=== PATIENT | male | born 1960 ===

== ENCOUNTER → 2020-06-25 13:10 | Outpatient (BNVA) | payer MEDICAID, SELFPAY | PROVIDERS: PCP Internal Medicine; Visit Provider Urology | DX: R97.20 Elevated prostate specific antigen [PSA] (principal); N50.89 Other specified disorders of the male genital organs; Z80.42 Family history of malignant neoplasm of prostate | CPT/HCPCS: 81002 ==

== ENCOUNTER 2020-07-02 11:14 | Outpatient (REF) | payer MEDICAID, SELFPAY ==
--- NOTE | ~2020-07-02 | US_ITS ---
EXAMINATION: US SCROTUM CLINICAL INFORMATION: Scrotal swelling. COMPARISON: None TECHNIQUE: A sonogram of the scrotum was performed assessing sanchez-scale appearance and color Doppler flow. Spectral Doppler analysis of the arterial and venous flow were performed in the testes bilaterally. FINDINGS: RIGHT: Right testicle measures 4.6 x 2.7 x 3.3 cm, volume 21 mL. No focal testicular parenchymal lesions are visualized. Spectral Doppler analysis of the arterial and venous flow is normal in the right testis. There are right epididymal head cysts measuring 1.5 x 1.6 x 2.3 cm and 0.8 x 0.7 x 0.9 cm. There is a right appendix epididymis. There is a small to moderate right hydrocele. There are multiple calcifications in the right scrotum or scrotal pearls. There is no right varicocele. LEFT: Left testicle measures 5.5 x 3.2 x 3.5 cm, volume 32 mL. There are 3 cysts seen in the anterior left testicle measuring 2.5 x 1.9 x 2.8 cm, 2 x 1.4 x 2 cm and 0.9 x 1 x 1.4 cm. There is an adjacent triangular-shaped hypoechoic lesion in the left upper and right testicle with some vascularity and peripheral calcification. This measures 1.2 x 0.9 x 0.7 cm. Spectral Doppler analysis of the arterial and venous flow is normal in the left testis. There are 2 left epididymal head cysts measuring 1 x 1.5 x 1.5 cm and 0.4 x 0.7 x 0.5 cm. There is a left scrotal calcification or scrotal gonzalez. There is a moderate to large complex left hydrocele with internal echoes. There is no left varicocele. US/US scrotum IMPRESSION: 3 simple cysts seen in the anterior left testicle and adjacent 1.2 x 0.9 x 0.7 cm triangular-shaped hypoechoic lesion with vascularity suggestive of a solid lesion and not a cyst. Bilateral epididymal head cysts. Bilateral hydroceles and scrotal calcifications or scrotal pearls, left side greater than right. Left hydrocele is slightly complex with internal echoes. Infectious or inflammatory process should be considered. Short-term ultrasound follow-up of left testicular lesion following treatment is recommended. Neoplastic process cannot be excluded.
== END 2020-07-02 11:15 | disposition home or self-care (01) ==
LOC: HO.HMGCX 11:14
PROVIDERS: PCP Internal Medicine; Visit Provider Urology
DX: N50.89 Other specified disorders of the male genital organs (principal); N49.2 Inflammatory disorders of scrotum
CPT/HCPCS: 76870

== ENCOUNTER 2020-07-09 08:57 | Outpatient (REF) | payer MEDICAID, SELFPAY ==
[2020-07-09 10:11] LABS: PSA,Total (Free>4and<10) 0.18 ng/mL (0.00-4.00)
== END 2020-07-09 08:58 | disposition home or self-care (01) ==
LOC: HO.LAB 08:57
PROVIDERS: Visit Provider Urology
DX: R97.20 Elevated prostate specific antigen [PSA] (principal); Z12.5 Encounter for screening for malignant neoplasm of prostate
CPT/HCPCS: 36415; 84153

== ENCOUNTER → 2020-07-27 14:07 | Outpatient (BNVA) | payer MEDICAID, SELFPAY | PROVIDERS: Visit Provider Urology | DX: N50.89 Other specified disorders of the male genital organs (principal); R97.20 Elevated prostate specific antigen [PSA]; Z80.42 Family history of malignant neoplasm of prostate | CPT/HCPCS: 99212 ==

== ENCOUNTER 2020-11-11 13:45 | Outpatient (REF) | payer MEDICAID, SELFPAY ==
[2020-11-11 15:31] LABS: Hemoglobin 11.5 g/dl (14.0-18.0); Mean Corpuscular HGB Conc 32.9 g/dl (31.0-36.0); Mean Corpuscular Hemoglobin 27.3 pg (27.0-33.0); Mean Corpuscular Volume 82.9 fL (80-98); Mean Platelet Volume 10.6 fL (9.4-12.4); Platelet Count 188 X10*3/uL (160-400); Red Blood Count 4.22 X10*6/uL (4.60-5.80); White Blood Count 7.5 X10*3/uL (4.8-10.8)
[2020-11-11 15:54] LABS: Alanine Aminotransferase 20 U/L (0-40); Albumin Level 4.2 g/dL (3.5-5.0); Alkaline Phosphatase 108 U/L (39-117); Anion Gap 14 (12-20); Aspartate Amino Transferase 19 U/L (5-37); Bilirubin Total 0.5 mg/dL (0.0-1.0); Blood Urea Nitrogen 41 mg/dL (9-16); C Reactive Protein 0.25 mg/dL (< or = 0.50); Calcium 9.4 mg/dL (8.4-10.2); Carbon Dioxide 18 mmol/L (22-29); Chloride 108 mmol/L (96-108); Estimated Glomerular Filt Rate 40; Glucose Random 311 mg/dL (60-115); Potassium 4.6 mmol/L (3.3-5.1); Sodium 135 mmol/L (135-145)
[2020-11-13 15:16] LABS: Transglutaminase Ab IgG 1 U/mL; Transglutaminase IgA 1 U/mL
== END 2020-11-11 13:46 | disposition home or self-care (01) ==
LOC: HO.LAB 13:45
PROVIDERS: PCP Emergency Medicine; Referring Provider Emergency Medicine; Visit Provider Nurse Practitioner Family
DX: K58.0 Irritable bowel syndrome with diarrhea (principal); E11.9 Type 2 diabetes mellitus without complications; I10 Essential (primary) hypertension; E78.5 Hyperlipidemia, unspecified; I25.10 Atherosclerotic heart disease of native coronary artery without angina pectoris; Z12.11 Encounter for screening for malignant neoplasm of colon
CPT/HCPCS: 36415; 80053; 83516; 85027; 86140; 99212

== ENCOUNTER 2020-11-30 11:21 | Outpatient (REF) | payer MEDICAID, SELFPAY ==
[2020-11-30 14:24] LABS: Blood Urea Nitrogen 20 mg/dL (9-16); Estimated Glomerular Filt Rate 55
[2020-11-30 14:26] LABS: Estimated Average Glucose 232 mg/dL; Hemoglobin A1c % 9.7 %
[2020-11-30 14:47] LABS: TSH reflex Free T4 0.32 uIU/mL (0.32-4.0)
== END 2020-11-30 11:22 | disposition home or self-care (01) ==
LOC: HO.LAB 11:21
PROVIDERS: PCP Internal Medicine; Visit Provider Nurse Practitioner Family
DX: K58.0 Irritable bowel syndrome with diarrhea (principal); R19.7 Diarrhea, unspecified; E11.9 Type 2 diabetes mellitus without complications; N17.9 Acute kidney failure, unspecified; N18.9 Chronic kidney disease, unspecified
CPT/HCPCS: 36415; 82565; 83036; 84443; 84520; 99212

== ENCOUNTER → 2020-12-23 12:17 | Outpatient (BNVA) | payer MEDICAID, SELFPAY | PROVIDERS: Visit Provider Internal Medicine Cardiovascular Disease | DX: Z01.810 Encounter for preprocedural cardiovascular examination (principal); I25.10 Atherosclerotic heart disease of native coronary artery without angina pectoris; R07.9 Chest pain, unspecified | CPT/HCPCS: 93005; 99202 ==

== ENCOUNTER → 2020-12-30 07:14 | Outpatient (REF) | payer MEDICAID, SELFPAY ==
--- NOTE | ~2020-12-30 | NM_ITS ---
Lexiscan Myocardial perfusion study Indication: Chest pain, assess for ischemia Technique: The patient was brought in for a Lexiscan perfusion study on 12/30/2020 and was injected 0.4 mg of Lexiscan intravenously. Within a minute of this injection 35 mCi of sestamibi was given intravenously. Images were obtained using the SPECT gamma camera interlaced with the gating device. Images were obtained in supine position. Resting perfusion study was performed on 01/03/2021. Patient was administered 35 mCi of sestamibi intravenously at rest. Images were then obtained in supine position. Total DLP 124mGy-cm. Images were processed with the software and compared side to side in short axis, horizontal long axis and vertical long axis views. Findings: Raw acquisition was reviewed. The stress perfusion study showed diminished tracer uptake along the inferior wall from basal to midportion. With CT attenuation correction there is improvement and hence could be from diaphragmatic attenuation artifact. The gated study shows normal LV systolic function with calculated LVEF of 62%. LV cavity is normal in size. The gated study shows diminished thickening or contractility in the basal to mid inferior wall. Resting study shows diminished tracer uptake in the basal to mid inferior wall. With CT attenuation correction, there is improvement and hence could be from diaphragmatic attenuation artifact. Gating at rest reveals ejection fraction at 64%. The findings are consistent with fixed defect in the basal to mid inferior wall. No reversible defects. NM/NM nick perf SPECT rest & str Impression: 1. Myocardial perfusion imaging study shows no definite ischemia. Fixed basal to mid inferior defect could be from diaphragmatic attenuation artifact, based on improvement with CT attenuation correction. 2. Gated LVEF is 62% during stress and 64% during rest. 3. Transient ischemic dilatation ratio 1.4, but this could also be technical. EKG component of the test reported separately.
--- NOTE | 2020-12-30 07:17 | CA_ITS ---
Acquisition Time: 2020-12-30 07:47:59 Total Exercise Time: 00:02:00 Test Indications: CP, PREOP Medications: SEE CHART Protocol: LEXISCAN Max HR: 090 BPM 56% of Pred: 160 BPM Max BP: 146/072 mmHG Max Work Load: 1.0 METS Pharmacological stress test with Lexiscan injection, while sitting and kicking his legs, without anginal symptoms, without arrythmia, with normotensive response to injection, with nondiagnostic EKG for ischemia. Nuclear images pending. Test reviewed with Dr Miguel. Referred By: Bassam Ogden Overread By: ADARSH LUEVANO
== END ==
LOC: HO.CARD 07:14
PROVIDERS: Visit Provider Internal Medicine Cardiovascular Disease
DX: I25.10 Atherosclerotic heart disease of native coronary artery without angina pectoris (principal)
CPT/HCPCS: 78452; 93017; A9500; J0280; J2785

== ENCOUNTER 2021-01-05 09:50 | Outpatient (REF) | payer MEDICAID, SELFPAY ==
[2021-01-05 11:19] LABS: Hematocrit 36.1 % (42-52); Hemoglobin 11.8 g/dl (14.0-18.0); Mean Corpuscular HGB Conc 32.7 g/dl (31.0-36.0); Mean Corpuscular Hemoglobin 27.7 pg (27.0-33.0); Mean Corpuscular Volume 84.7 fL (80-98); Mean Platelet Volume 10.2 fL (9.4-12.4); Platelet Count 215 X10*3/uL (160-400); Red Blood Count 4.26 X10*6/uL (4.60-5.80); Red Cell Distribution Width 14.8 % (11.0-16.0); White Blood Count 6.6 X10*3/uL (4.8-10.8)
[2021-01-05 11:23] LABS: Prothrombin Time 11.5 SEC (9.9-13.0)
[2021-01-05 12:29] LABS: Anion Gap 15 (12-20); Blood Urea Nitrogen 28 mg/dL (9-16); Calcium 9.3 mg/dL (8.4-10.2); Carbon Dioxide 17 mmol/L (22-29); Chloride 113 mmol/L (96-108); Estimated Glomerular Filt Rate 58; Glucose Random 73 mg/dL (60-115); Potassium 5.7 mmol/L (3.3-5.1); Sodium 139 mmol/L (135-145)
== END 2021-01-05 09:51 | disposition home or self-care (01) ==
LOC: HO.LAB 09:50
PROVIDERS: PCP Internal Medicine; Visit Provider Internal Medicine Cardiovascular Disease
DX: R94.39 Abnormal result of other cardiovascular function study (principal); K58.0 Irritable bowel syndrome with diarrhea; K21.9 Gastro-esophageal reflux disease without esophagitis; R14.0 Abdominal distension (gaseous); Z87.891 Personal history of nicotine dependence
CPT/HCPCS: 36415; 80048; 85027; 85610; 99212

== ENCOUNTER 2021-01-17 11:13 | Outpatient (REF) | payer MEDICAID, SELFPAY ==
--- NOTE | ~2021-01-17 | CT_ITS ---
EXAMINATION: CT ABDOMEN AND PELVIS WITH CONTRAST CLINICAL INFORMATION: R19.7 - Diarrhea, unspecified COMPARISON: None TECHNIQUE: Multidetector volumetric images were obtained from the superior aspect of the liver through the pubic symphysis following administration 85 mL of Omnipaque 350 intravenous contrast. Sagittal and coronal reformatted images were obtained on the technologist's workstation. Oral contrast: Yes This CT examination was performed using dose optimization techniques as appropriate, variously including the following: *Automated exposure control *Adjustment of mA and/or kV according to patient size (this includes techniques or standardized protocols for targeted exams where dose is matched to indication/reason for exam; i.e. extremities or head) *Use of iterative reconstruction technique DLP: 570 mGy-cm FINDINGS: LUNG BASES: No airspace consolidation or effusion. Incidental 0.6 cm calcified granuloma central right base. No additional follow-up required. LIVER, GALLBLADDER, AND BILIARY TREE: The liver is normal in size and smooth in contour and uniform in attenuation. Parenchymal density is within normal. There is no hepatic parenchymal lesion or intrahepatic ductal dilatation. The gallbladder is mildly contracted. No visible stone or wall thickening. Common duct unremarkable. PANCREAS: Normal. SPLEEN: Normal. ADRENAL GLANDS: Normal. KIDNEYS AND URETERS: The kidneys are normal in size and enhance symmetrically. There is no hydronephrosis, hydroureter, or calculi. Calcification upper pole left kidney under 4 mm is likely related to the vasculature. There is an exophytic cyst lower pole left kidney 2.5 cm and 6HU attenuation. No additional follow-up recommended. The right kidney has a 2 cm circumscribed partially exophytic low-attenuation lesion lateral lower pole with density measurements ranging from 21-26 HU. This is likely a cyst and may be confirmed with nonemergent renal ultrasound. BLADDER: Unremarkable. GASTROINTESTINAL TRACT: There is no bowel obstruction or focal inflammatory changes in the bowel or mesentery. The appendix is normal. There is no pneumatosis or free air. Moderate stool is present left and sigmoid colon and rectum. There is no ascites or fluid collection. ABDOMINAL WALL: No significant hernia is appreciated. LYMPH NODES: No lymphadenopathy. VASCULAR: Unremarkable. PELVIC VISCERA: Unremarkable. OSSEOUS STRUCTURES: Unremarkable. CT/CT abdomen pelvis w con IMPRESSION: 1. No bowel obstruction or focal inflammatory changes. Normal appendix. Moderate stool left colon and rectum. No ascites or fluid collection. 2. Probable cyst lateral lower pole right kidney 2 cm, density 21-26HU. This may be confirmed with nonemergent outpatient renal ultrasound.
[2021-01-17] MEDS: iohexoL 350 MG/ML 100 ML INFUS..BTL IV (14:52)
== END 2021-01-17 11:14 | disposition home or self-care (01) ==
LOC: HO.CT 11:13
PROVIDERS: PCP Internal Medicine; Visit Provider Nurse Practitioner Family
DX: R19.7 Diarrhea, unspecified (principal)
CPT/HCPCS: 74177; Q9967

== ENCOUNTER 2021-01-24 06:58 | Outpatient (REF) | payer MEDICAID, SELFPAY ==
[2021-01-24 08:30] LABS: Prostate Specific Antigen 0.18 ng/mL (<0.05-4.0)
== END 2021-01-24 06:59 | disposition home or self-care (01) ==
LOC: HO.LAB 06:58
PROVIDERS: PCP Internal Medicine; Visit Provider Urology
DX: Z12.5 Encounter for screening for malignant neoplasm of prostate (principal); N13.8 Other obstructive and reflux uropathy; N40.1 Benign prostatic hyperplasia with lower urinary tract symptoms; R97.20 Elevated prostate specific antigen [PSA]
CPT/HCPCS: 36415; 84153

== ENCOUNTER → 2021-01-28 11:26 | Outpatient (BNVA) | payer MEDICAID, SELFPAY | PROVIDERS: PCP Internal Medicine; Visit Provider Urology ==

== ENCOUNTER → 2021-02-16 07:29 | Outpatient (BNVA) | payer MEDICAID, SELFPAY | PROVIDERS: PCP Internal Medicine; Visit Provider Nurse Practitioner Family | DX: Z01.810 Encounter for preprocedural cardiovascular examination (principal); I25.10 Atherosclerotic heart disease of native coronary artery without angina pectoris; R94.39 Abnormal result of other cardiovascular function study; K58.2 Mixed irritable bowel syndrome; K21.9 Gastro-esophageal reflux disease without esophagitis; R19.7 Diarrhea, unspecified | CPT/HCPCS: 99212 ==

== ENCOUNTER → 2021-03-10 07:27 | Outpatient (REF) | payer MEDICAID, SELFPAY ==
--- NOTE | ~2021-03-10 | NM_ITS ---
EXAMINATION: BILIARY TRACT IMAGING STUDY WITH CCK CLINICAL INFORMATION: Diarrhea.. COMPARISON: No previous biliary scan is available for comparison. The diagnostic CT scan of the abdomen and pelvis, dated 01/17/2021, is available for comparison.. TECHNIQUE: Serial gamma scintillation camera images were obtained over the abdomen for a total observation period of 93 minutes following the intravenous administration of 5 mCi Tc-99m Mebrofenin. FINDINGS: There is good concentration of activity in the liver by 5 minutes post injection. Biliary activity is visualized by 15 minutes. The gallbladder is well visualized by 25 minutes. Small bowel is well visualized by 75 minutes. At 90 minutes post radiopharmaceutical injection, a 30-minute infusion of 2.0 micrograms Sincalide was then begun and an additional 40 minutes of images were obtained. There is good emptying of the gallbladder. By the end of the study there is good clearance of activity from the liver and visualization of diffuse small bowel activity. The calculated gallbladder ejection fraction is 88% (normal gallbladder ejection fraction is greater than 35%). NM/NM hepatobiliary w pharm IMPRESSION: Visualization of the gallbladder is evidence of a patent cystic duct and strong evidence against the diagnosis of acute cholecystitis. The common bile duct is patent. Gallbladder emptying and ejection fraction are normal. Liver function appears normal.
== END ==
LOC: HO.NUCMED 07:27
PROVIDERS: Visit Provider Nurse Practitioner Family
DX: R19.7 Diarrhea, unspecified (principal)
CPT/HCPCS: 78227; A9537; J2805

== ENCOUNTER → 2021-04-11 08:51 | Outpatient (BNVA) | payer MEDICAID, SELFPAY | PROVIDERS: PCP Internal Medicine; Referring Provider Internal Medicine; Visit Provider Nurse Practitioner Family | DX: Z12.11 Encounter for screening for malignant neoplasm of colon (principal); K21.9 Gastro-esophageal reflux disease without esophagitis; K58.2 Mixed irritable bowel syndrome; R19.7 Diarrhea, unspecified | CPT/HCPCS: 99212 ==

== ENCOUNTER 2021-05-02 07:44 | Outpatient (REF) | payer MEDICAID, SELFPAY ==
--- NOTE | 2021-05-02 | PFT_ITS ---
FLOWS: FEV1 of 110% of predicted at 3.13 L. FVC 97% of predicted at 3.62 L. FEV1 to FVC ratio of 0.87. No bronchodilator response. LUNG VOLUMES: Total lung capacity 85% of predicted at 4.94 L. Residual volume 84% of predicted at 1.64 L. Slow vital capacity 85% of predicted at 3.30 L. Expiratory reserve volume 15% of predicted at 0.15 L. Diffusion capacity is mildly decreased, diffusion capacity adjust to normal after correction for alveolar ventilation. IMPRESSION: No obstructive or restrictive ventilatory defect. No bronchodilator response. Decreased expiratory reserve volume suggests extrathoracic restriction likely secondary to abdominal obesity. Parminder Olivas MD AP/MODL / [id number]
== END 2021-05-02 07:45 | disposition home or self-care (01) ==
LOC: HO.RESP 07:44
PROVIDERS: PCP Internal Medicine; Visit Provider Internal Medicine
DX: R06.02 Shortness of breath (principal)
CPT/HCPCS: 94060; 94727; 94729

== ENCOUNTER → 2021-06-22 12:30 | Outpatient (BNVA) | payer MEDICAID, SELFPAY | PROVIDERS: PCP Internal Medicine; Referring Provider Internal Medicine; Visit Provider Internal Medicine Cardiovascular Disease | DX: I73.9 Peripheral vascular disease, unspecified (principal); I25.10 Atherosclerotic heart disease of native coronary artery without angina pectoris | CPT/HCPCS: 99212 ==

== ENCOUNTER → 2021-07-12 09:02 | Outpatient (BNVA) | payer MEDICAID, SELFPAY | PROVIDERS: PCP Internal Medicine; Visit Provider Surgery Vascular Surgery | DX: I73.9 Peripheral vascular disease, unspecified (principal) | CPT/HCPCS: 99212 ==

== ENCOUNTER 2021-07-12 10:47 | Outpatient (REF) | payer MEDICAID, SELFPAY ==
[2021-07-12 12:18] LABS: Prostate Specific Antigen 0.21 ng/mL (<0.05-4.0)
== END 2021-07-12 10:48 | disposition home or self-care (01) ==
LOC: HO.LAB 10:47
PROVIDERS: Visit Provider Urology
DX: R97.20 Elevated prostate specific antigen [PSA] (principal); Z12.5 Encounter for screening for malignant neoplasm of prostate; I73.9 Peripheral vascular disease, unspecified
CPT/HCPCS: 36415; 84153; 99204

== ENCOUNTER → 2021-07-29 14:29 | Outpatient (BNVA) | payer MEDICAID, SELFPAY | PROVIDERS: PCP Internal Medicine; Visit Provider Urology ==

== ENCOUNTER 2021-08-11 07:47 | Outpatient (REF) | payer MEDICAID, SELFPAY ==
--- NOTE | ~2021-08-11 | CT_ITS ---
STUDY PERFORMED: CTA ABDOMEN, PELVIS AND LOWER EXTREMITY RUNOFF WITH CONTRAST HISTORY: Peripheral vascular disease, unspecified DESCRIPTION: Routine abdominal aorta and lower extremity runoff CTA protocol with contrast was performed. 100 mL of Omnipaque 350 was administered. 3D POSTPROCESSING: Multiple 3-D angiographic images were processed from the initial data set by the [facility] under concurrent physician supervision. This CT examination was performed using dose optimization techniques as appropriate, variously including the following: *Automated exposure control *Adjustment of mA and/or kV according to patient size (this includes techniques or standardized protocols for targeted exams where dose is matched to indication/reason for exam; i.e. extremities or head) *Use of iterative reconstruction technique DLP: 774 mGycm. COMPARISON: CT abdomen pelvis 01/17/2021 FINDINGS: VASCULAR: Please note that vascular opacification is less than optimal secondary to poor timing. ABDOMINAL AORTA: The suprarenal aorta appears unremarkable. There is marked atherosclerotic change present in the infrarenal aorta but no significant focal stenosis. No aortic aneurysm. No aortic dissection. RIGHT LOWER EXTREMITY: - Common Iliac Artery: Moderate atherosclerotic changes with only mild stenosis.. - Internal Iliac Artery: Diseased but patent.. - External Iliac Artery: Calcific atherosclerotic changes with mild area of stenosis.. - Common Femoral Artery: Moderate atherosclerotic disease with eccentric calcified and noncalcified plaque producing about 50% stenosis.. - Profunda Femoral Artery: Atherosclerotic changes but patent.. - Superficial Femoral Artery: Occluded shortly after its origin with reconstitution just below the level of a diseased adductor canal.. - Popliteal Artery: Patent with calcific plaque but no significant stenosis.. - Tibioperoneal Trunk: Patent with Monckeberg type calcifications without significant stenosis - Posterior Tibial Artery: Patent with Monckeberg type calcification throughout its course. - Peroneal Artery: Patent without calcification. - Anterior Tibial Artery: Patent with Monckeberg type calcifications throughout its course. LEFT LOWER EXTREMITY: - Common Iliac Artery: Left common iliac stent is present. Is difficult to director of student life patency based upon the poor quality contrast injection. I suspect that the stents are patent. Ultrasound may be useful for further evaluation. - Internal Iliac Artery: Diseased but patent.. - External Iliac Artery: Patent. - Common Femoral Artery: Calcified plaque but patent.. - Profunda Femoral Artery: Mockingbird type calcifications but patent. - Superficial Femoral Artery: A stent is present in the SFA extending from the adductor canal to just below the inguinal ligament. I suspect that the stent is patent but because of the poor quality of the contrast bolus and cannot be certain of this.. - Popliteal Artery: Patent without significant stenosis.. - Tibioperoneal Trunk: Patent - Posterior Tibial Artery: Patent with Monckeberg type calcifications throughout. - Peroneal Artery: Patent. - Anterior Tibial Artery: Patent with Monckeberg type calcifications. CELIOMESENTERIC ARTERIES: Not optimally seen secondary to poor contrast bolus. Mild ostial disease but no stenosis. All 3 vessels are patent.. RENAL ARTERIES: Single renal artery on the right and 2 renal arteries on the left. There are all patent. NONVASCULAR: Lung Bases: The visualized lung bases are unremarkable. Liver, Gallbladder and Biliary Tree: The liver is normal in size, shape, and attenuation. No focal hepatic lesion or biliary ductal dilatation is present. The gallbladder is unremarkable with no evidence of radiopaque gallstones, gallbladder wall thickening, or obvious pericholecystic inflammatory changes. Pancreas: Unremarkable. Spleen: Unremarkable. Adrenal Glands: Unremarkable. Kidneys and Ureters: The kidneys are normal in size, shape, and attenuation. Again seen is a 2.2 cm right lower pole renal mass measuring around 30 Hounsfield units. Appearances are unchanged. This most likely represents a hyperattenuating cyst. Ultrasound could be performed for confirmation. No hydronephrosis, hydroureter, or calculi seen. No perinephric stranding. Bladder: Unremarkable. Gastrointestinal Tract: The small and large bowel are unremarkable. The appendix is unremarkable. Abdominal Wall: No significant hernia is appreciated. Lymph Nodes: No retroperitoneal lymphadenopathy. Pelvic Viscera: Prostate and seminal vesicles appear normal. Osseous Structures: Unremarkable. CT/CT angio abd aorta runoff IMPRESSION: 1. The study is suboptimal secondary to poor contrast bolus/timing. 2. No significant aortic inflow disease. 3. On the right, there is moderate disease in the common femoral artery with an occluded SFA with distal reconstitution and patent popliteal. Three-vessel runoff with Monckeberg calcification involving all vessels aside from the peroneal. 4. On the left, left common iliac stent is probably patent although accurate assessment is not possible. The SFA stent may be patent, but again, accurate assessment is not possible. The popliteal is patent with three-vessel runoff described above with Monckeberg calcifications involving all runoff vessels aside from the peroneal. 5. Incidental nonvascular findings discussed above.
[2021-08-11 08:34] LABS: Blood Urea Nitrogen 15 mg/dL (9-16); Estimated Glomerular Filt Rate 58
[2021-08-11] MEDS: iohexoL 350 MG/ML 100 ML INFUS..BTL IV (09:33)
== END 2021-08-11 07:48 | disposition home or self-care (01) ==
LOC: HO.CT 07:47
PROVIDERS: PCP Internal Medicine; Visit Provider Surgery Vascular Surgery
DX: I70.209 Unspecified atherosclerosis of native arteries of extremities, unspecified extremity (principal)
CPT/HCPCS: 36415; 75635; 82565; 84520; Q9967

== ENCOUNTER 2021-08-16 10:51 | Day surgery (SDC) | payer MEDICAID, SELFPAY ==
[2021-08-12 09:24] VITALS: BMI 38.2
--- NOTE | 2021-08-12 13:53 | P.CONAN_ITS ---
Documented by User: Esperanza Perdomo NP 08/12/21 14:09 HPI - Anesthesia Eval Consult details Narrative: 61yo M for Upper Endoscopy and Colonoscopy Plavix for PAD/RLE stent - OK to hold per PCP CAD medically managed Cardiac optimized, intermed risk Opioid daily PMFSH Active Problems Active Problems: All Active Problems (Updated 08/12/21 @ 09:14 by Vale Lynn RN) Chest pain (Acute) CAD (coronary artery disease) (Acute) Preop cardiovascular exam (Acute) Abnormal stress test (Acute) PVD (peripheral vascular disease) (Acute) Family history of prostate cancer (Acute) Scrotal swelling (Acute) Elevated PSA (Acute) Past Medical History Medical History CAD (coronary artery disease) Diabetes Elevated PSA Family history of prostate cancer PVD (peripheral vascular disease) Scrotal swelling Surgical History Surgical History (Updated 08/12/21 @ 09:13 by Vale Lynn RN) History of cardiac cath History of surgery History of vascular surgery Hx of arthroscopic knee surgery Social History Social History Alcohol intake: never Patient Tobacco Use Status: Former Tobacco user Quit Date: 2014 Years Smoked: 35+ Are you DNR?: No Advance Directives: No Advance Directives Information Provided: Yes Recently lost weight without trying: No Nutrition Risks: No Nutritional Risk Meds Allergies Allergy/AdvReac Type Severity Reaction Status Date / Time No Known Allergies Allergy Verified 07/29/21 15:21 Home Medications Medication Instructions Recorded Confirmed Last Taken Type acetaminophen 500 mg capsule 500 mg PO Q6H PRN 11/11/20 08/12/21 Unknown History albuterol sulfate 2.5 mg/0.5 mL 5 mg INHALATION Q4H 11/11/20 08/12/21 Unknown History solution for nebulization alcohol swabs (Alcohol Prep Pads) pad TOPICAL 11/11/20 06/22/21 Unknown History amlodipine 10 mg tablet (Norvasc) 10 mg PO DAILY 11/11/20 08/12/21 Unknown History aspirin 81 mg tablet,delayed 81 mg PO DAILY 11/11/20 08/12/21 Unknown History release (Adult Low Dose Aspirin) atorvastatin 80 mg tablet 80 mg PO DAILY 11/11/20 08/12/21 Unknown History blood sugar diagnostic (FreeStyle #10 ea 11/11/20 06/22/21 Unknown History Lite Strips) carvedilol 3.125 mg tablet (Coreg) 3.125 mg PO BID 11/11/20 08/12/21 Unknown History cilostazol 100 mg tablet 100 mg PO BID 11/11/20 08/12/21 Unknown History clopidogrel 75 mg tablet (Plavix) 75 mg PO DAILY 11/11/20 08/12/21 08/11/21 History diphenoxylate-atropine 2.5 1 tab PO QID PRN 11/11/20 08/12/21 Unknown History mg-0.025 mg tablet (Lomotil) fluticasone propionate 50 1 spray INTRANASAL DAILY 11/11/20 08/12/21 Unknown History mcg/actuation nasal spray,suspension (Flonase Allergy Relief) gabapentin 300 mg/6 mL (6 mL) oral 100 mg PO TID 11/11/20 06/22/21 Unknown History solution glucose 4 gram chewable tablet 4 g PO Q15M PRN 11/11/20 08/12/21 Unknown History (Dex4 Glucose) insulin NPH isoph U-100 human 100 20 unit SUBCUT QAM 11/11/20 08/12/21 Unknown History unit/mL (3 mL) subcutaneous pen (Novolin N Flexpen) insulin glargine 100 unit/mL (3 10 unit SUBCUT QPM 11/11/20 08/12/21 Unknown History mL) subcutaneous pen (Lantus Solostar U-100 Insulin) isosorbide mononitrate 60 mg 60 mg PO QAM 11/11/20 08/12/21 Unknown History tablet,extended release 24 hr risperidone 1 mg/mL oral solution 2 mg PO BEDTIME 11/11/20 06/22/21 Unknown History tramadol 50 mg tablet 50 mg PO TID PRN 11/11/20 08/12/21 Unknown History carvedilol 6.25 mg tablet 6.25 mg PO 07/12/21 Unknown History cholecalciferol (vitamin D3) 25 25 mcg PO QAM 07/12/21 08/12/21 Unknown History mcg (1,000 unit) tablet gabapentin 300 mg capsule 100 mg PO TID 07/12/21 08/12/21 Unknown History insulin aspart U-100 100 unit/mL SUBCUT 07/12/21 Unknown History (3 mL) subcutaneous pen (Novolog Flexpen U-100 Insulin aspart) lancets 28 gauge (TRUEplus Lancets) #100 ea 07/12/21 Unknown History lisinopril 40 mg tablet 40 mg PO QAM 07/12/21 08/12/21 Unknown History pen needle, diabetic 32 gauge x #50 ea 07/12/21 Unknown History (Pentips) risperidone 3 mg tablet 3 mg PO BEDTIME 07/12/21 08/12/21 Unknown History Exam Exam Date and Time: August 12, 2021 1353 Height,Weight and Vital Signs: Height 5 ft 4 in Weight 101.151 kg Pertinent Lab Results Pertinent Lab Results: Repeat Lytes DOS d/t increased K Laboratory Tests 01/05/21 08/11/21 10:05 08:09 WBC 6.6 Hgb 11.8 L Hct 36.1 L Plt Count 215 BUN 15 Creatinine 1.27 Narrative Narrative: Per 05/2021 cardiac office visit: Cardiac catheterization showed 90% stenosis in 2nd diagonal branch, 60% OM2 stenosis and moderate diffuse disease in the right coronary artery with mild InStent restenoses in the mid RCA.? There is also a 60% stenosis noticed in the right posterior descending artery.? He was medically managed at that stage.? His echocardiography at that time showed normal biventricular function.? Subsequent to that in 2016 he had Lexiscan which showed no fixed or reversible perfusion defect.? He has been experiencing diarrhea for months.? He has developed dehydration due to that.? He has no shortness of breath.? He does get chest discomfort and recently had chest tightness for which he took nitroglycerin.? He said symptoms were similar to his pre PCI chest discomfort. He underwent Lexiscan which showed fixed basal to mid inferior defect and t.i.d.. He was taken for diagnostic angiogram where we noticed occluded mid right coronary artery with [id number] collaterals and 50% 2nd diagonal stenosis.? We decided to medically manage him.? He was advised to proceed with endoscopy with intermediate risk. Assessment and Plan Assessment Anesthesia Assessment: Chart Reviewed Documented by User: Ghislaine Galloway MD 08/16/21 11:41 [facility] Past Medical History Medical History CAD (coronary artery disease) Diabetes Elevated PSA Family history of prostate cancer PVD (peripheral vascular disease) Scrotal swelling Functional capacity: independent ambulation Family History Family history of problems with anesthesia: No Surgical History Surgical History (Updated 08/12/21 @ 09:13 by Vale Lynn RN) History of cardiac cath History of surgery History of vascular surgery Hx of arthroscopic knee surgery History of Problems with Anesthesia: No Social History Social History Alcohol intake: never Patient Tobacco Use Status: Former Tobacco user Quit Date: 2014 Years Smoked: 35+ Are you DNR?: No Advance Directives: No Advance Directives Information Provided: Yes Recently lost weight without trying: No Nutrition Risks: No Nutritional Risk Meds Allergies Allergy/AdvReac Type Severity Reaction Status Date / Time No Known Allergies Allergy Verified 07/29/21 15:21 Home Medications Medication Instructions Recorded Confirmed Last Taken Type acetaminophen 500 mg capsule 500 mg PO Q6H PRN 11/11/20 08/12/21 Unknown History albuterol sulfate 2.5 mg/0.5 mL 5 mg INHALATION Q4H 11/11/20 08/12/21 Unknown History solution for nebulization alcohol swabs (Alcohol Prep Pads) pad TOPICAL 11/11/20 06/22/21 Unknown History amlodipine 10 mg tablet (Norvasc) 10 mg PO DAILY 11/11/20 08/12/21 Unknown History aspirin 81 mg tablet,delayed 81 mg PO DAILY 11/11/20 08/12/21 Unknown History release (Adult Low Dose Aspirin) atorvastatin 80 mg tablet 80 mg PO DAILY 11/11/20 08/12/21 Unknown History blood sugar diagnostic (FreeStyle #10 ea 11/11/20 06/22/21 Unknown History Lite Strips) carvedilol 3.125 mg tablet (Coreg) 3.125 mg PO BID 11/11/20 08/12/21 Unknown History cilostazol 100 mg tablet 100 mg PO BID 11/11/20 08/12/21 Unknown History clopidogrel 75 mg tablet (Plavix) 75 mg PO DAILY 11/11/20 08/12/21 08/11/21 History diphenoxylate-atropine 2.5 1 tab PO QID PRN 11/11/20 08/12/21 Unknown History mg-0.025 mg tablet (Lomotil) fluticasone propionate 50 1 spray INTRANASAL DAILY 11/11/20 08/12/21 Unknown History mcg/actuation nasal spray,suspension (Flonase Allergy Relief) gabapentin 300 mg/6 mL (6 mL) oral 100 mg PO TID 11/11/20 06/22/21 Unknown History solution glucose 4 gram chewable tablet 4 g PO Q15M PRN 11/11/20 08/12/21 Unknown History (Dex4 Glucose) insulin NPH isoph U-100 human 100 20 unit SUBCUT QAM 11/11/20 08/12/21 Unknown History unit/mL (3 mL) subcutaneous pen (Novolin N Flexpen) insulin glargine 100 unit/mL (3 10 unit SUBCUT QPM 11/11/20 08/12/21 Unknown History mL) subcutaneous pen (Lantus Solostar U-100 Insulin) isosorbide mononitrate 60 mg 60 mg PO QAM 11/11/20 08/12/21 Unknown History tablet,extended release 24 hr risperidone 1 mg/mL oral solution 2 mg PO BEDTIME 11/11/20 06/22/21 Unknown History tramadol 50 mg tablet 50 mg PO TID PRN 11/11/20 08/12/21 Unknown History carvedilol 6.25 mg tablet 6.25 mg PO 07/12/21 Unknown History cholecalciferol (vitamin D3) 25 25 mcg PO QAM 07/12/21 08/12/21 Unknown History mcg (1,000 unit) tablet gabapentin 300 mg capsule 100 mg PO TID 07/12/21 08/12/21 Unknown History insulin aspart U-100 100 unit/mL SUBCUT 07/12/21 Unknown History (3 mL) subcutaneous pen (Novolog Flexpen U-100 Insulin aspart) lancets 28 gauge (TRUEplus Lancets) #100 ea 07/12/21 Unknown History lisinopril 40 mg tablet 40 mg PO QAM 07/12/21 08/12/21 Unknown History pen needle, diabetic 32 gauge x #50 ea 07/12/21 Unknown History (Pentips) risperidone 3 mg tablet 3 mg PO BEDTIME 07/12/21 08/12/21 Unknown History Exam Airway Mallampati Class: III TM Dist: >3cm Neck ROM: Full Heart: RRR Lungs: CTA Assessment and Plan Final Anesthetic Review Family History of Problems with Anesthesia: No History of Problems with Anesthesia: No ASA Class: III Final Preanesthetic Review: No Changes in Pt Med Stat, Meds/Allgs Chart Reviewed, Consent Obtained/Reviewed and Anes Risks/Benef Reviewed Patient Risk: Intermediate Procedure Risk: Low Anesthetic Plan Anesthetic Plan: MAC: Disposition: Standard PACU
[2021-08-16 10:57] VITALS: BP 156/82; PULSE 92; RESP 18; TEMP 36.3; O2SAT 96
[2021-08-16 11:13] LABS: Glucose, Whole Blood 99 mg/dL (60-115)
[2021-08-16] MEDS: Lactated Ringers 1,000 ML 100 ML IVCONT (11:23)
--- NOTE | 2021-08-16 11:27 | MHC.SHP ---
Pre-Procedural Eval Section A Date of Service: 08/16/21 Section B Chief Complaint: GERD, IBS Relevant Family History (Specify if Yes): No Relevant Social History: None Present Medications: see Short Stay Collaborative assessment Medical History: Significant History (CAD (coronary artery disease) Diabetes Elevated PSA Family history of prostate cancer PVD (peripheral vascular disease) Scrotal swelling) History of Previous Operations: Relevant previous surgery/procedure and date(s) (History of cardiac cath History of surgery History of vascular surgery Hx of arthroscopic knee surgery) Allergies: Allergies Allergy/AdvReac Type Severity Reaction Status Date / Time No Known Allergies Allergy Verified 07/29/21 15:21 Review of Systems Sugical H&P ROS: Negative: Constitution, Cardiovascular, Respiratory, Neurological, Psychiatric, Hem-Onc, Allergic/Immunologic, Gastrointestinal, Genitourinary, Musculoskeletal, Integumentary, Endocrine and Eyes/Ears/Nose/Throat Exam Surgical H&P Exam: Normal: HEENT, Normal: Heart, Normal: Lungs, Normal: Extremities, Normal: Abdomen, Normal: Skin and Normal: Neurological Plan Diagnosis/Plan: Unchanged I have reviewed the history and physical and performed a pertinent physical examination on my patient. No changes have occurred unless specified.
--- NOTE | 2021-08-16 11:30 | PM.OP ---
Brief Operative Note Date of Service: 08/16/21 Pre-op diagnosis: altered bowel habits, diarrhea, GERd, bloating Post-op diagnosis: same Procedure: see op note Surgeon: Evgeny Ceja MD Anesthesia: MAC Was an Juvenile Justice Specialist used for this Procedure?: No Estimated blood loss (mL): 0 Condition: stable Disposition: PACU
[2021-08-16 11:34] LABS: Anion Gap 15 (12-20); Carbon Dioxide 26 mmol/L (22-29); Chloride 103 mmol/L (96-108); Potassium 4.2 mmol/L (3.3-5.1); Sodium 140 mmol/L (135-145)
--- NOTE | 2021-08-16 12:02 | P.CONAN_ITS ---
COUNTS INCLUDE 234 BEDS AT THE [facility] Active Problems Active Problems: All Active Problems (Updated 08/16/21 @ 11:09 by Karen Castanon RN) Chest pain (Acute) CAD (coronary artery disease) (Acute) Preop cardiovascular exam (Acute) Abnormal stress test (Acute) PVD (peripheral vascular disease) (Acute) Family history of prostate cancer (Acute) Scrotal swelling (Acute) Elevated PSA (Acute) Past Medical History Medical History (Updated 08/16/21 @ 11:09 by Karen Castanon RN) CAD (coronary artery disease) Diabetes Elevated PSA Family history of prostate cancer Myocardial infarct, old PVD (peripheral vascular disease) Scrotal swelling Functional capacity: independent ambulation Family History Family history of problems with anesthesia: No Surgical History Surgical History (Updated 08/12/21 @ 09:13 by Vale Lynn RN) History of cardiac cath History of surgery History of vascular surgery Hx of arthroscopic knee surgery History of Problems with Anesthesia: No Social History Social History Alcohol intake: never Patient Tobacco Use Status: Former Tobacco user Quit Date: 2014 Years Smoked: 35+ Are you DNR?: No Advance Directives: No Advance Directives Information Provided: Yes Recently lost weight without trying: No Nutrition Risks: No Nutritional Risk Meds Allergies Allergy/AdvReac Type Severity Reaction Status Date / Time No Known Allergies Allergy Verified 07/29/21 15:21 Active Medications: Current Medications Lactated Ringer's (Lr) 1,000 mls @ 100 mls/hr IVCONT .Q10H PORSHA Last Admin: 08/16/21 11:23 Dose: 100 mls/hr Documented by: Home Medications Medication Instructions Recorded Confirmed Last Taken Type acetaminophen 500 mg capsule 500 mg PO Q6H PRN 11/11/20 08/12/21 Unknown History albuterol sulfate 2.5 mg/0.5 mL 5 mg INHALATION Q4H 11/11/20 08/12/21 08/16/21 History solution for nebulization alcohol swabs (Alcohol Prep Pads) pad TOPICAL 11/11/20 06/22/21 Unknown History amlodipine 10 mg tablet (Norvasc) 10 mg PO DAILY 11/11/20 08/12/21 08/16/21 History aspirin 81 mg tablet,delayed 81 mg PO DAILY 11/11/20 08/12/21 08/14/21 History release (Adult Low Dose Aspirin) atorvastatin 80 mg tablet 80 mg PO DAILY 11/11/20 08/12/21 Unknown History blood sugar diagnostic (FreeStyle #10 ea 11/11/20 06/22/21 Unknown History Lite Strips) carvedilol 3.125 mg tablet (Coreg) 3.125 mg PO BID 11/11/20 08/12/21 08/16/21 History cilostazol 100 mg tablet 100 mg PO BID 11/11/20 08/12/21 Unknown History clopidogrel 75 mg tablet (Plavix) 75 mg PO DAILY 11/11/20 08/12/21 08/11/21 History diphenoxylate-atropine 2.5 1 tab PO QID PRN 11/11/20 08/12/21 Unknown History mg-0.025 mg tablet (Lomotil) fluticasone propionate 50 1 spray INTRANASAL DAILY 11/11/20 08/12/21 08/16/21 History mcg/actuation nasal spray,suspension (Flonase Allergy Relief) gabapentin 300 mg/6 mL (6 mL) oral 100 mg PO TID 11/11/20 06/22/21 Unknown His tory solution glucose 4 gram chewable tablet 4 g PO Q15M PRN 11/11/20 08/12/21 Unknown History (Dex4 Glucose) insulin NPH isoph U-100 human 100 20 unit SUBCUT QAM 11/11/20 08/12/21 Unknown History unit/mL (3 mL) subcutaneous pen (Novolin N Flexpen) insulin glargine 100 unit/mL (3 10 unit SUBCUT QPM 11/11/20 08/12/21 Unknown History mL) subcutaneous pen (Lantus Solostar U-100 Insulin) isosorbide mononitrate 60 mg 60 mg PO QAM 11/11/20 08/12/21 08/16/21 History tablet,extended release 24 hr risperidone 1 mg/mL oral solution 2 mg PO BEDTIME 11/11/20 06/22/21 Unknown History tramadol 50 mg tablet 50 mg PO TID PRN 11/11/20 08/12/21 Unknown History carvedilol 6.25 mg tablet 6.25 mg PO 07/12/21 Unknown History cholecalciferol (vitamin D3) 25 25 mcg PO QAM 07/12/21 08/12/21 Unknown History mcg (1,000 unit) tablet gabapentin 300 mg capsule 100 mg PO TID 07/12/21 08/12/21 08/16/21 History insulin aspart U-100 100 unit/mL SUBCUT 07/12/21 Unknown History (3 mL) subcutaneous pen (Novolog Flexpen U-100 Insulin aspart) lancets 28 gauge (TRUEplus Lancets) #100 ea 07/12/21 Unknown History lisinopril 40 mg tablet 40 mg PO QAM 07/12/21 08/12/21 Unknown History pen needle, diabetic 32 gauge x #50 ea 07/12/21 Unknown History (Pentips) risperidone 3 mg tablet 3 mg PO BEDTIME 07/12/21 08/12/21 Unknown History Exam Exam Date and Time: August 16, 2021 120 Height,Weight and Vital Signs: Height 5 ft 4 in Weight 101.151 kg Last Vital Signs Temp 97.3 F 08/16/21 10:57 Pulse 92 08/16/21 10:57 Resp 18 08/16/21 10:57 BP 156/82 H 08/16/21 10:57 Pulse Ox 96 08/16/21 10:57 Pertinent Lab Results Pertinent Lab Results: Laboratory Tests 08/16/21 08/16/21 11:03 11:07 Sodium 140 Potassium 4.2 D Chloride 103 Carbon Dioxide 26 Anion Gap 15 POC Glucose 99 Assessment and Plan Final Anesthetic Review Family History of Problems with Anesthesia: No History of Problems with Anesthesia: No
--- NOTE | 2021-08-16 12:13 | W.PM.OPN ---
Operative Note Operative Note Date of Service: 08/16/21 Narrative: Operative Information Procedure Description: EGD, Colonoscopy FLEXIBLE TRANSORAL UPPER GASTROINTESTINAL ENDOSCOPY AND COLONOSCOPY PROCEDURE NOTE UPPER ENDOSCOPY Consent: Indications for the procedure and potential complications of bleeding, perforation, reaction to medications and missed diagnosis were discussed with the patient and informed consent was obtained. Instrument: Olympus GIF H 190 J mid size upper endoscope Monitoring: Vital signs and clinical assessment, continuous EKG monitoring, Pulse oximetry, Carbon Dioxide monitoring and blood pressure monitoring were done throughout the procedure. Procedure: The patient was placed in the left lateral decubitis position and pre-procedure medications were administered and a bite block was placed. The endoscope was inserted into the mouth and advanced under direct vision to the third part of duodenum. A careful inspection was made as the upper endoscope was withdrawn including a retroflexed examination of the proximal stomach; Findings and interventions are described below. Findings: Larynx:normal Esophagus: GE junction at 37 cm, diaphragm hiatus at 37 cm, mild esophagitis, bx taken from GEJ and random esophagus. Balloon dilation to 18- then 20 mm, at LES, no tear seen. UEs also dilated to 18 mm, no tear seen. The GEJ was a little patulous. Stomach: Mild atrohpy and erythema . Biopsies were obtained. Grade 2 flap valve on retroflexed examination of the cardia. Duodenum: Normal bulb and descending duodenum, Intervention: Biopsies as noted above, balloon dilation COLONOSCOPY Instrument: Olympus variable stiffness adult scope 190L Colonoscopy Monitoring: Vital signs and clinical assessment, continuous EKG monitoring, Pulse oximetry, Carbon Dioxide monitoring and blood pressure monitoring were done throughout the procedure. Colon withdrawal time was 24 minutes. Procedure: The patient was placed in the left lateral decubitis position and pre-procedure medications were administered. After a digital rectal examination of the ano-rectum, the video colonoscope was inserted into the rectum and advanced through the colon to the cecum/TI. The colonoscope was slowly withdrawn in a retrograde panoramic fashion and the colon mucosa was carefully examined including a retroflexed view of the rectum. Findings and interventions are described below. Procedure Difficulty: moderate due to persistent leakage of CO2 from rectum Findings: Terminal Ileum-normal, bx taken Random colon bx taken Cecum:normal, 6-8 mm AVm noted, non bleeding Ascending Colon: normal Transverse Colon -normal Descending Colon:normal Sigmoid Colon: semi pedunculated polyp 12-13 mm removed with hot snare and then area around injected with epinephrine although not really that much bleeding noted. Difficult to maneuvre due to leakage of air from rectum Rectum: Retroflexion with moderate sized internal hemorrhoids, grade I Anorectum - normal Colon preparation: [place] Bowel Preparation Scale Right colon; 1 Transverse colon: 2 Left colon; 2 (0 = Unprepared colon segment with mucosa not seen due to solid stool that cannot be cleared. 1 = Portion of mucosa of the colon segment seen, but other areas of the colon segment not well seen due to staining, residual stool and/or opaque liquid. 2 = Minor amount of residual staining, small fragments of stool and/or opaque liquid, but mucosa of colon segment seen well. 3 = Entire mucosa of colon segment seen well with no residual staining, small fragments of stool or opaque liquid) Impression and Post Procedure Diagnosis: Endoscopy Findings: esophagitis mild gastritis Colonoscopy Findings: cecal AVM internal hemorrhoids colon polyp Plan: Await Pathology results Repeat Colonoscopy in 1 year due to prep or earlier if clinically indicated, review prep next time High fiber diet leaflet avoid straining at stool, epsom salts and sitz bath, anusol supps or cream if h pylori pos then treat restart plavix in 48 hours Above findings were reviewed with the patient and relevant handouts were provided if indicated.
[2021-08-16 13:00] VITALS: BP 103/45; PULSE 88; RESP 16; TEMP 36.3; O2SAT 96
[2021-08-16 13:15] VITALS: BP 105/51; PULSE 83; RESP 16; TEMP 36.3; O2SAT 94
--- NOTE | 2021-08-16 13:18 | PC.NURSE ---
irrigationist designer used to speak to patient with md crocker. calling for his ride home.
--- NOTE | 2021-08-16 15:11 | HO.POSTANES ---
Post Anesthesia Evaluation Post Anesthesia Evaluation Vital Signs: Vital Signs Temp Pulse Resp BP Pulse Ox 08/16/21 13:15 97.3 F 83 16 105/51 L 94 08/16/21 13:00 97.3 F 88 16 103/45 L 96 08/16/21 10:57 97.3 F 92 18 156/82 H 96 Mental Status: Awake Pain Control: Satisfactory Nausea/Vomiting: None Hydration: Adequate Anesthesia-Related Issues: No Anes. Related Issues
== END 2021-08-16 13:47 | disposition home or self-care (01) ==
PROVIDERS: Nurse Practitioner; Visit Provider Internal Medicine Gastroenterology
PROC: (CPT 45385; principal; 2021-08-16 12:50)
DX: K58.2 Mixed irritable bowel syndrome (principal); D12.5 Benign neoplasm of sigmoid colon; K64.0 First degree hemorrhoids; K55.20 Angiodysplasia of colon without hemorrhage; K21.9 Gastro-esophageal reflux disease without esophagitis; K22.2 Esophageal obstruction; K20.80 Other esophagitis without bleeding; K29.50 Unspecified chronic gastritis without bleeding; K44.9 Diaphragmatic hernia without obstruction or gangrene; I25.10 Atherosclerotic heart disease of native coronary artery without angina pectoris; Z98.61 Coronary angioplasty status; I73.9 Peripheral vascular disease, unspecified; E11.9 Type 2 diabetes mellitus without complications; Z79.4 Long term (current) use of insulin; Z79.82 Long term (current) use of aspirin; Z79.899 Other long term (current) drug therapy; Z87.891 Personal history of nicotine dependence
CPT/HCPCS: 45385; 43249; 43239; 36415; 80051; 82947; 88305; 88342; C1726; J0171

== ENCOUNTER → 2021-08-23 08:47 | Outpatient (BNVA) | payer MEDICAID, SELFPAY | PROVIDERS: PCP Internal Medicine; Visit Provider Surgery Vascular Surgery | DX: I73.9 Peripheral vascular disease, unspecified (principal) | CPT/HCPCS: 99212 ==

== ENCOUNTER 2021-08-24 06:46 | Day surgery (SDC) | payer MEDICAID, SELFPAY ==
[2021-08-24] VITALS (10 sets, daily range): BP systolic 129–148; BP diastolic 61–84; PULSE 74–82; RESP 16–18; TEMP 36.7–37.6; O2SAT 94–98; BMI 38.6
[2021-08-24 08:06] LABS: Glucose, Whole Blood 202 mg/dL (60-115)
[2021-08-24 08:12] LABS: MANUAL DIFF FLAG NO
[2021-08-24 08:22] LABS: Basophils Percent Auto 0.4 % (0-2); Eosinophils Absolute Auto 0.2 X10*3/uL (0.0-0.4); Eosinophils Percent Auto 2.3 % (0-4); Hematocrit 38.5 % (42.0-52.0); Hemoglobin 12.4 g/dl (14.0-18.0); Imm Gran Abs Auto 0.03 X10*3/uL (0.00-0.03); Imm Gran Pct Auto 0.4 % (0.0-0.4); Lymphocytes Absolute Auto 2.1 X10*3/uL (1.2-4.9); Lymphocytes Percent Auto 28.6 % (20-40); Mean Corpuscular HGB Conc 32.2 g/dl (31.0-36.0); Mean Corpuscular Hemoglobin 26.8 pg (27.0-33.0); Mean Corpuscular Volume 83.3 fL (80.0-98.0); Mean Platelet Volume 9.9 fL (9.4-12.4); Monocytes Absolute Auto 0.5 X10*3/uL (0.1-1.2); Monocytes Percent Auto 6.9 % (2-11); Neutrophils Absolute Auto 4.4 x10*3/uL (2.0-8.3); Neutrophils Percent Auto 61.4 % (45-73); Platelet Count 232 X10*3/uL (160-400); Red Blood Count 4.62 X10*6/uL (4.60-5.80); Red Cell Distribution Width 14.7 % (11.0-16.0); White Blood Count 7.2 X10*3/uL (4.8-10.8)
[2021-08-24 08:36] LABS: Blood Urea Nitrogen 20 mg/dL (9-16); Estimated Glomerular Filt Rate 60
[2021-08-24] MEDS: 0.9 % Sodium Chloride 1,000 ML 100 ML IVCONT (08:47)
--- NOTE | 2021-08-24 11:48 | W.PM.OPN ---
Operative Note Operative Note Date of Service: 08/24/21 Narrative: Angiogram report from [facility] Preoperative diagnosis: Atherosclerosis of left lower extremity with activity limiting claudication Postoperative diagnosis: Same Procedure: 1. Ultrasound-guided right common femoral access 2. Aortogram with left lower extremity runoff 3. Angioplasty of left SFA Surgeon:Quique Whitney M.D., FACS, RPVI Hand Ornament Maker:None Anesthesia: Local with moderate conscious sedation. Total intraservice moderate sedation time was 59 minutes. I monitored the patient's level of consciousness and physiologic status continuously throughout the procedure. Specimens:none Drains:none Estimated blood loss: Less than 10 ml Implant: Medtronic Impact DCB 5 x 40 and 6 x 60 Indications: 61-year-old gentleman with multiple endovascular interventions at performed at outside institutions presented with activity limiting claudication. He had undergone noninvasive testing with concerns of SFA disease. He now presents for endovascular intervention. The patient has signed the informed consent after reviewing risks, complications, benefits, and alternatives previously discussed with the patient. The patient was given the opportunity to ask any additional questions or voice any concerns. All questions were answered to the patient's satisfaction. Procedure in detail: Patient was brought to the angiography suite prior to which a time-out was called for patient identification and site verification. Bilateral groins were prepped and draped in the standard surgical fashion. Under ultrasound guidance right common femoral was punctured with micro puncture needle and wire. Subsequently a precision 5 Malagasy sheath was then placed. Bentson wire was advanced to the level of the aorta. 5 Malagasy Flush catheter was brought up and parked at the level of the renal arteries. Aortogram was then undertaken. Catheter was brought down to the level of the iliac bifurcation. Iliacs were subsequently imaged. Catheter was then brought in up and over to the left side SFA. Runoff study was then undertaken. At this time we recognize there was InStent restenoses. 7000 units of systemic heparin was administered after 5 minutes of circulation time and up and over 6 Malagasy sheath was then placed. We advanced a 035 glidewire Advantage to traverse all these lesions. This was easily done. We instilled contrast through the catheter to ensure true lumen. Once this was accomplished we plasty did to InStent restenotic lesions with a regular 6 x 40 balloon. We then turned our attention to the distal lesion which was closer towards Dilip's canal and we plasty this with a drug coated 5 x 40 balloon. This was brought into position in under 3 minutes and insufflated for a total of 3 minutes in duration. In a similar fashion we turned our attention more proximally and we placed a 6 x 60 balloon in the proximal SFA. Once again this was brought into position in under 3 minutes and insufflated for a total of 3 minutes in duration. Once this was all done completion angiogram demonstrated excellent result catheter wire sheath was brought back to the ipsilateral side right iliac was then imaged with contrast. Appropriate puncture was noted. StarClose closure device was then deployed. Adequate hemostasis was achieved. Puncture sites was closed off using a 3-0 poly Sorb suture in an interrupted manner. Once this was done Exofin was used as a sterile dressing. Patient was returned to recovery with stable vitals and motor and sensation intact of the lower extremities. Interpretation of films: 1. Ultrasound demonstrates appropriate femoral puncture. Image of which was saved. 2. Aortogram demonstrates appropriate caliber aorta. Minimal disease. Appropriate take-off of the renals. 3. Iliac images demonstrate minimal disease prior iliac stent was patent 4. LeftLeg Common femoral artery: No significant disease Profundus Femoris: No significant disease Superficial femoral artery: 6 stents with InStent restenoses Popliteal artery (p1,p2,p3): Patent Anterior tibial artery: Patent Peroneal artery: Patent Posterior tibial artery: Patent Dorsalis pedis/plantar arch: Minimal disease Conclusion: 1. Successful plasty of InStent restenoses 2. Anticoagulation status: Will require minimum of 6 months of aspirin and Plavix which he is already on This note is constructed using voice recognition software. While every effort has been made to ensure accuracy, receiving dock checker errors may have been included. Thank you for allowing me to participate in the care of your patient. Yours sincerely, Quique Whitney MD, FACS, R.P.V.I.
[2021-08-24] MEDS: iohexoL 300 MG/ML 100 ML INFUS..BTL IV (12:01)
[2021-08-24] MEDS: Lidocaine HCl 1 % MPF 5 ML VIAL SUBCUT (12:02)
--- NOTE | 2021-08-24 15:07 | PC.NURSE ---
Dr Whitney contacted at 1500 and made aware pt had oozing and that no oozing x1 hour p pressure applied. Dr Whitney states okay to discharge pt home
== END 2021-08-24 15:00 | disposition home or self-care (01) ==
PROVIDERS: Visit Provider Surgery Vascular Surgery
DX: E11.51 Type 2 diabetes mellitus with diabetic peripheral angiopathy without gangrene (principal); I70.212 Atherosclerosis of native arteries of extremities with intermittent claudication, left leg; T82.856A Stenosis of peripheral vascular stent, initial encounter; Y82.8 Other medical devices associated with adverse incidents; Y92.9 Unspecified place or not applicable; Y83.8 Other surgical procedures as the cause of abnormal reaction of the patient, or of later complication, without mention of misadventure at the time of the procedure; Z79.4 Long term (current) use of insulin; I25.10 Atherosclerotic heart disease of native coronary artery without angina pectoris; I25.2 Old myocardial infarction; Z87.891 Personal history of nicotine dependence
CPT/HCPCS: 36415; 37224; 76937; 82565; 82947; 84520; 85025; 99152; 99153; C1725; C1760; C1769; C1887; C2623; J2250; J3010; Q9967

== ENCOUNTER → 2021-08-31 11:26 | Outpatient (BNVA) | payer MEDICAID, SELFPAY | PROVIDERS: PCP Internal Medicine; Referring Provider Internal Medicine; Visit Provider Nurse Practitioner Family | DX: K64.8 Other hemorrhoids (principal); K58.9 Irritable bowel syndrome, unspecified; D36.9 Benign neoplasm, unspecified site; Z98.890 Other specified postprocedural states | CPT/HCPCS: 99212 ==

== ENCOUNTER → 2021-09-08 09:19 | Outpatient (BNVA) | payer MEDICAID, SELFPAY | PROVIDERS: PCP Internal Medicine; Visit Provider Surgery Vascular Surgery | DX: I73.9 Peripheral vascular disease, unspecified (principal) | CPT/HCPCS: 99212 ==

== ENCOUNTER 2021-10-10 14:06 | Emergency (ER) | payer MEDICAID, SELFPAY ==
[2021-10-10 14:43] VITALS: BP 146/59; PULSE 78; RESP 18; TEMP 36.9; O2SAT 95; BMI 38.6
--- NOTE | 2021-10-10 16:40 | ED.ALLEREA ---
HPI - Allergic Reaction General Chief complaint: Allergic Reaction Stated complaint: itchy and red spots on body Time Seen by Provider: 10/10/21 15:37 Source: patient Mode of arrival: ambulatory Limitations: no limitations History of Present Illness HPI narrative: 61 yo m pmhx cad, dm, pvd presents w/diffuse itchiness H1mjtzs and 2 weeks. Patient tells me he at times gets a red itchy rash that is bothersome. No known hematologic conditions, no liver issues. No known allergies. No chest pain, fevers, chills, chest pain, shortness of breath, no difficulties swallowing. Patient tried pills and cream with little relief. MD complaint: other (itchiness) Onset (ago): month(s) (1 month two weeks) Exposure: unknown Symptoms: itching Severity: moderate Treatment prior to arrival: none Related Data Home Medications Medication Instructions Recorded Confirmed acetaminophen 500 mg capsule 500 mg PO Q6H PRN 11/11/20 08/12/21 albuterol sulfate 2.5 mg/0.5 mL 5 mg INHALATION Q4H 11/11/20 08/12/21 solution for nebulization alcohol swabs (Alcohol Prep Pads) pad TOPICAL 11/11/20 06/22/21 amlodipine 10 mg tablet (Norvasc) 10 mg PO DAILY 11/11/20 08/12/21 aspirin 81 mg tablet,delayed 81 mg PO DAILY 11/11/20 08/12/21 release (Adult Low Dose Aspirin) atorvastatin 80 mg tablet 80 mg PO DAILY 11/11/20 08/12/21 blood sugar diagnostic (FreeStyle #10 ea 11/11/20 06/22/21 Lite Strips) cilostazol 100 mg tablet 100 mg PO BID 11/11/20 08/12/21 clopidogrel 75 mg tablet (Plavix) 75 mg PO DAILY 11/11/20 08/12/21 glucose 4 gram chewable tablet 4 g PO Q15M PRN 11/11/20 08/12/21 (Dex4 Glucose) insulin NPH isoph U-100 human 100 20 unit SUBCUT QAM 11/11/20 08/12/21 unit/mL (3 mL) subcutaneous pen (Novolin N Flexpen) insulin glargine 100 unit/mL (3 10 unit SUBCUT QPM 11/11/20 08/12/21 mL) subcutaneous pen (Lantus Solostar U-100 Insulin) isosorbide mononitrate 60 mg 60 mg PO QAM 11/11/20 08/12/21 tablet,extended release 24 hr risperidone 1 mg/mL oral solution 2 mg PO BEDTIME 11/11/20 06/22/21 tramadol 50 mg tablet 50 mg PO TID PRN 11/11/20 08/12/21 carvedilol 6.25 mg tablet 6.25 mg PO 07/12/21 cholecalciferol (vitamin D3) 25 25 mcg PO QAM 07/12/21 08/12/21 mcg (1,000 unit) tablet gabapentin 300 mg capsule 100 mg PO TID 07/12/21 08/12/21 insulin aspart U-100 100 unit/mL SUBCUT 07/12/21 (3 mL) subcutaneous pen (Novolog Flexpen U-100 Insulin aspart) lancets 28 gauge (TRUEplus Lancets) #100 ea 07/12/21 lisinopril 40 mg tablet 40 mg PO QAM 07/12/21 08/12/21 pen needle, diabetic 32 gauge x #50 ea 07/12/21/32 (Pentips) risperidone 3 mg tablet 3 mg PO BEDTIME 07/12/21 08/12/21 fluticasone propionate 110 2 puff INHALATION BID 08/31/21 mcg/actuation HFA aerosol inhaler (Flovent HFA) acetaminophen 500 mg tablet 1,000 mg PO Q6H PRN 09/08/21 Previous Rx's Medication Instructions Recorded pantoprazole 20 mg tablet,delayed 20 mg PO DAILY #30 tab 08/30/21 release hydroxyzine HCl 25 mg tablet 25 mg PO BEDTIME PRN #14 tab 10/10/21 Allergies Allergy/AdvReac Type Severity Reaction Status Date / Time No Known Allergies Allergy Verified 10/10/21 14:42 Review of Systems Review of Systems: Constitutional : No Weight loss, No Fever, No Chills, No Fatigue, No Malaise ENT/Mouth : No sore throat, No Rhinorrhea Eyes: No Eye Pain, No Swelling, No Redness Cardiovascular : No Chest Pain, No SOB, No Dyspnea on Exertion, No Orthopnea, No Edema, No Palpitations Respiratory : No Cough, No Sputum, No Wheezing Gastrointestinal : No Nausea, No Vomiting, No Diarrhea, No Constipation, No abdominal Pain, No Hematochezia, No Melena Genitourinary : No Dysuria, No Urinary Frequency, No Hematuria, Musculoskeletal : No joint pain, No Myalgias, No Joint Swelling Skin : No Skin Lesions, No rash Neuro : No Weakness, No Numbness, No Dizziness, No Headache Psych : No Anxiety/Panic, No Depression All other systems reviewed and are negative Yes all other systems are reviewed and are negative [facility] Past Medical History Attestation statement: The following information was validated with the patient. Source: old records reviewed and nursing notes reviewed Medical History CAD (coronary artery disease) Diabetes Elevated PSA Family history of prostate cancer Myocardial infarct, old PVD (peripheral vascular disease) Scrotal swelling Tubular adenoma Surgical History History of cardiac cath History of esophagogastroduodenoscopy (EGD) History of surgery History of vascular surgery Hx of arthroscopic knee surgery Hx of colonoscopy Hx of ligation of vein Family History Family History Maternal Grandmother Diabetes Paternal Grandmother Diabetes Brother Diabetes Mother No problems noted. Father Diabetes Social History Social History Alcohol intake: never Patient Tobacco Use Status: Former Tobacco user Quit Date: 2014 Years Smoked: 35+ Advance Directives: No Advance Directives Information Provided: No Physical Exam ED Vital Signs: Vital Signs - 24 hr 10/10/21 14:43 Temperature 98.5 F Pulse Rate 78 Respiratory Rate 18 Blood Pressure 146/59 H Pulse Oximetry 95 BMI result Body Mass Index 38.6 VSS Appearance: Alert.? Oriented X3.? No acute distress.?Speaking in full sentence. Head: Normocephalic, atraumatic, no step-offs or deformities Eyes: Pupils equal, round and reactive to light.? ENT: Pharynx normal.?Uvula midline. Controlling secretions well. Neck: Normal inspection.? Neck supple.? CVS: Normal heart rate and rhythm.? Pulses normal.? Respiratory: No respiratory distress.? Breath sounds normal.? Abdomen: Soft and nontender.? Skin: Skin warm and dry.? Normal skin color.? Normal skin turgor.? Extremities: No lower extremity edema.? No calf ttp. 5/5 strength to bilateral upper and lower extremities Back: No midline tenderness, no C-spine tenderness, full range of motion, no CVA tenderness bilaterally Neuro: Oriented X 3.? No motor deficit.? No sensory deficit. CN 2-12 intact Course Reevaluation(s) Reevaluation #1: Hydroxyzine was given. Patient will pick a prescription at pharmacy. Advised him to return with new or worse home signs and symptoms. Outlined he is on his discharge. Comfortable discharge home Time: 17:11 MDM - Allergic Reaction MDM Narrative Medical decision making narrative: 1649 61 yo m presents w/ diffuse body itching X1 month two weeks . Patient is speaking in full sentences, denies shortness of breath, chest pain. Tells me he has a rash intermittently however no rash at this time. PE benign. Speaking in full sentences. Controlling secretions. Uvula midlie. No acute distress lungs clear. No stridor. RRR. Neuo nonfocal. Plan- dc home with prompt pcp follow up and hydroxizine 25 mg for itchiness. Medical Records Attestation: I reviewed the patient's medical records. Lab Data Attestation: I reviewed the patient's lab results. Critical Care Time Critical Care Time Critical Care Time: No Discharge Plan Discharge Clinical Impression: Pruritus Patient Disposition: Home, Self-Care Instructions: Itchy Skin (ED) Additional Instructions: Take your medications as prescribed. If you were prescribed antibiotics today, it is important that you take your medication to their entirety, do not skip any doses, do not finish them early. Follow-up with your primary care provider this week. Return to the emergency department with new or worsening symptoms. Such as fevers, chills, chest pain, shortness of breath, nausea, vomiting, dizziness, headache, vision changes, lethargy, difficulty swallowing, speaking, shortness of breath. In case of emergency call 911 [place] me[facility] medicamentos seg?n lo prescrito. Si le recetaron antibi?ticos hoy, es importante que tome powell medicamento en powell totalidad, no se salte ninguna dosis, no los termine antes de tiempo. Seguimiento con powell proveedor de atenci?n primaria esta semana. Regrese al departamento de emergencias con s?ntomas nuevos o que empeoran. Tales min fiebre, escalofr?os, dolor de pecho, dificultad para respirar, n?useas, v?mitos, mareos, dolor de ac, cambios en la visi?n, letargo, dificultad para tragar, hablar, dificultad para respirar. En lavinia de emergencia marquita al 91 Prescriptions: New hydroxyzine HCl 25 mg tablet 25 mg PO BEDTIME PRN (Reason: itching) Qty: 14 0RF No Action pantoprazole 20 mg tablet,delayed release (DR/EC) 20 mg PO DAILY Qty: 30 3RF acetaminophen 500 mg capsule 500 mg PO Q6H PRN (Reason: Pain) 0RF aspirin [Adult Low Dose Aspirin] 81 mg tablet,delayed release (DR/EC) 81 mg PO DAILY 0RF clopidogrel [Plavix] 75 mg tablet 75 mg PO DAILY 0RF cilostazol 100 mg tablet 100 mg PO BID 0RF (DME) FreeStyle Lite Strips Strip See Rx Instructions .ROUTE .MEDSUPPLY Qty: 10 0RF Rx Instructions: As directed isosorbide mononitrate 60 mg tablet extended release 24 hr 60 mg PO QAM 0RF Lantus Solostar U-100 Insulin 100 unit/mL (3 mL) insulin pen 10 unit subcut QPM 0RF amlodipine [Norvasc] 10 mg tablet 10 mg PO DAILY 0RF albuterol sulfate 2.5 mg/0.5 mL solution for nebulization 5 mg inhalation Q4H 0RF alcohol swabs [Alcohol Prep Pads] Pads, Medicated topical 0RF glucose [Dex4 Glucose] 4 gram tablet,chewable 4 g PO Q15M PRN (Reason: Hypoglycemia) 0RF Rx Instructions: until symptoms of low blood sugar are controlled risperidone 1 mg/mL solution 2 mg PO BEDTIME 0RF atorvastatin 80 mg tablet 80 mg PO DAILY 0RF Novolin N Flexpen 100 unit/mL (3 mL) insulin pen 20 unit subcut QAM 0RF tramadol 50 mg tablet 50 mg PO TID PRN (Reason: Pain) 0RF Flovent HFA 110 mcg/actuation HFA aerosol inhaler 2 puff inhalation BID 0RF (DME) lancets [TRUEplus Lancets] 28 gauge misc See Rx Instructions ea Not Applicable .MEDSUPPLY Qty: 100 0RF Rx Instructions: As directed (DME) pen needle, diabetic [Pentips] 32 gauge x 5/32 needle See Rx Instructions ea .ROUTE DAILY Qty: 50 0RF Rx Instructions: As directed cholecalciferol (vitamin D3) 25 mcg (1,000 unit) tablet 25 mcg PO QAM 0RF insulin aspart U-100 [Novolog Flexpen U-100 Insulin] 100 unit/mL (3 mL) insulin pen subcut 0RF lisinopril 40 mg tablet 40 mg PO QAM 0RF gabapentin 300 mg capsule 100 mg PO TID 0RF risperidone 3 mg tablet 3 mg PO BEDTIME 0RF carvedilol 6.25 mg tablet 6.25 mg PO 0RF acetaminophen 500 mg tablet 1,000 mg PO Q6H PRN (Reason: pain) 0RF Referrals: Physician,Unknown J [Primary Care Provider] - 2 days Stand Alone Forms: Work/School Release
[2021-10-10] MEDS: hydrOXYzine HCL 25 MG TABLET PO (17:00)
[2021-10-10 17:32] VITALS: BP 170/80; PULSE 79; RESP 18; TEMP 36.8; O2SAT 98
== END 2021-10-10 17:36 | disposition home or self-care (01) ==
PROVIDERS: Emergency Provider Emergency Medicine
DX: L29.9 Pruritus, unspecified (principal); I25.10 Atherosclerotic heart disease of native coronary artery without angina pectoris; E11.9 Type 2 diabetes mellitus without complications; Z79.899 Other long term (current) drug therapy; Z87.891 Personal history of nicotine dependence
CPT/HCPCS: 99282; 99283

== ENCOUNTER 2021-11-23 17:32 | Emergency (ER) | payer MEDICAID, SELFPAY ==
--- NOTE | ~2021-11-23 | XR_ITS ---
EXAMINATION: XR CHEST CLINICAL INFORMATION: Right-sided chest pain COMPARISON: CT abdomen and pelvis with runoff 08/11/2021 TECHNIQUE: Frontal view of the chest was obtained. FINDINGS: No significant abnormality is noted involving the heart, lungs, mediastinum, bony thorax or soft tissues. XR/XR chest 1V IMPRESSION: Unremarkable examination.
[2021-11-23 17:55] VITALS: BP 149/83; BP 161/78; PULSE 83; RESP 16; TEMP 36.7; O2SAT 97; BMI 38.2
[2021-11-23 17:57] LABS: Glucose, Whole Blood 296 mg/dL (60-115)
--- NOTE | 2021-11-23 18:04 | ED.CHESTPAIN ---
HPI - Chest Pain General Chief Complaint: Chest Pain Stated Complaint: Dizziness/weakness Time Seen by Provider: 11/23/21 18:04 Source: patient and family (Son-in-law) Mode of arrival: EMS Limitations: language barrier ([place] speaking only, pipe fitter helper used. Patient's son-in-law also speaks Korean and [place]ese) History of Present Illness HPI narrative: 61-year-old male who presents emergency department for evaluation of chest pain. Patient states that he was lying down around 14:00 hours when he had a sudden onset of left-sided chest pain. Describes the pain is a constant, throbbing sensation which is 8/10 at its worse and is currently 8/10 on presentation to the emergency department. The patient denies radiation of the pain to his neck, jaw or arms. States he does feel dizzy and lightheaded he also feels short of breath. He denied nausea, vomiting or diaphoresis. Patient states he has had similar pain in the past and has had cardiac workups including a cardiac catheterization within the last 6 months at [facility]. He states that he has noticed swelling in both his legs, but this is not unusual for him. He denies pain in his legs. He denied fever, chills, rhinorrhea, shortness of breath, cough, nausea, vomiting, diarrhea. Patient also states that he has been having itchiness all over his entire body for approximately 2 months. He has seen his PCP and he has been prescribed medications and creams which have not helped. He states that he is being referred to a men's garment fitter for this problem. I did review the diesel mechanic construction, Dr. Ogden's office visit note from 06/22/2021 where the patient was being evaluated for medical clearance for an endoscopy. In his note, it states the patient had a recent diagnostic angiogram which revealed a 50% lesion of the diagonal branch without any significant stentable lesions, plan was to manage medically. MD complaint: chest pain Pertinent past history: coronary artery disease and prior SC Onset (ago): hour(s) (4) Timing of current episode: constant Prior episodes: Yes Onset: during rest Pain location: left chest Pain radiation: none Severity: severe Pain scale (0-10): 8 Quality: other (Throbbing) Relieving factors: nothing Exacerbating factors: nothing Associated symptoms: dyspnea and other (Dizziness) Risk Factors Coronary artery disease risk factors: none Related Data Home Medications Medication Instructions Recorded Confirmed acetaminophen 500 mg capsule 500 mg PO Q6H PRN Pain 11/11/20 08/12/21 albuterol sulfate 2.5 mg/0.5 mL 5 mg inhalation Q4H 11/11/20 08/12/21 solution for nebulization alcohol swabs (Alcohol Prep Pads) pad topical 11/11/20 06/22/21 amlodipine 10 mg tablet (Norvasc) 10 mg PO DAILY 11/11/20 08/12/21 aspirin 81 mg tablet,delayed 81 mg PO DAILY 11/11/20 08/12/21 release (Adult Low Dose Aspirin) atorvastatin 80 mg tablet 80 mg PO DAILY 11/11/20 08/12/21 blood sugar diagnostic (FreeStyle #10 ea 11/11/20 06/22/21 Lite Strips) cilostazol 100 mg tablet 100 mg PO BID 11/11/20 08/12/21 clopidogrel 75 mg tablet (Plavix) 75 mg PO DAILY 11/11/20 08/12/21 glucose 4 gram chewable tablet 4 g PO Q15M PRN Hypoglycemia 11/11/20 08/12/21 (Dex4 Glucose) insulin NPH isoph U-100 human 100 20 unit subcut QAM 11/11/20 08/12/21 unit/mL (3 mL) subcutaneous pen (Novolin N Flexpen) insulin glargine 100 unit/mL (3 10 unit subcut QPM 11/11/20 08/12/21 mL) subcutaneous pen (Lantus Solostar U-100 Insulin) isosorbide mononitrate 60 mg 60 mg PO QAM 11/11/20 08/12/21 tablet,extended release 24 hr risperidone 1 mg/mL oral solution 2 mg PO BEDTIME 11/11/20 06/22/21 tramadol 50 mg tablet 50 mg PO TID PRN Pain 11/11/20 08/12/21 carvedilol 6.25 mg tablet 6.25 mg PO 07/12/21 cholecalciferol (vitamin D3) 25 25 mcg PO QAM 07/12/21 08/12/21 mcg (1,000 unit) tablet gabapentin 300 mg capsule 100 mg PO TID 07/12/21 08/12/21 insulin aspart U-100 100 unit/mL subcut 07/12/21 (3 mL) subcutaneous pen (Novolog Flexpen U-100 Insulin aspart) lancets 28 gauge (TRUEplus Lancets) #100 ea 07/12/21 lisinopril 40 mg tablet 40 mg PO QAM 07/12/21 08/12/21 pen needle, diabetic 32 gauge x #50 ea 07/12/21 (Pentips) risperidone 3 mg tablet 3 mg PO BEDTIME 07/12/21 08/12/21 fluticasone propionate 110 2 puff inhalation BID 08/31/21 mcg/actuation HFA aerosol inhaler (Flovent HFA) acetaminophen 500 mg tablet 1,000 mg PO Q6H PRN pain 09/08/21 Previous Rx's Medication Instructions Recorded pantoprazole 20 mg tablet,delayed 20 mg PO DAILY #30 tabs 08/30/21 release hydroxyzine HCl 25 mg tablet 25 mg PO BEDTIME PRN itching #14 10/10/21 tabs Allergies Allergy/AdvReac Type Severity Reaction Status Date / Time No Known Allergies Allergy Verified 10/10/21 14:42 Review of Systems Review of Systems: Yes all other systems are reviewed and are negative [facility] Past Medical History [facility] Narrative: Social history: He denies tobacco use, he is a former smoker and he smoked for many years, he stopped 8 years prior when he had his heart attack. Denies alcohol use. He denies drug use. Medical History CAD (coronary artery disease) Diabetes Elevated PSA Family history of prostate cancer Myocardial infarct, old PVD (peripheral vascular disease) Scrotal swelling Tubular adenoma Surgical History History of cardiac cath History of esophagogastroduodenoscopy (EGD) History of surgery History of vascular surgery Hx of arthroscopic knee surgery Hx of colonoscopy Hx of ligation of vein Family History Family History Maternal Grandmother Diabetes Paternal Grandmother Diabetes Brother Diabetes Mother No problems noted. Father Diabetes Social History Social History Alcohol intake: never Patient Tobacco Use Status: Former Tobacco user Quit Date: 2014 Years Smoked: 35+ Use of substances other than those prescribed or required for medical reasons: No Advance Directives: No Advance Directives Information Provided: No Physical Exam Vital Signs: Vital Signs: Last Vital Signs Temp 98.3 F 11/23/21 21:48 Pulse 76 11/23/21 21:48 Resp 13 11/23/21 21:48 BP 130/90 H 11/23/21 21:48 Pulse Ox 95 11/23/21 21:48 O2 Del Method 11/23/21 21:48 BMI result Body Mass Index 38.2 Const: General: cooperative and no acute distress Orientation/consciousness: oriented to person and oriented to place Limitations: no limitations HEENT: Head: Yes normal to inspection, Yes normocephalic and Yes atraumatic Ears: external ears normal General nose exam: Normal external nose present Face and sinus: Yes normal facial exam Mouth: Normal oral and palatal mucosa present Throat: Yes posterior oropharynx normal Eyes: General: appearance normal, both eyes and all related structures Pupils: Equal, round and reactive pupils present Neck: Neck: Yes normal visual inspection, Yes no lymphadenopathy, Yes trachea midline and Yes supple Chest: Chest palpation & inspection: normal inspection of the chest and normal palpation of entire chest wall Resp: Effort & Inspection: normal respiratory effort and able to speak in complete sentences Auscultation: clear to auscultation bilaterally Cardio: Rate: regular rate Rhythm: regular rhythm Heart sounds: S1 normal heart sound present, S2 normal heart sound present and no murmurs GI: Inspection: Yes normal to inspection Palpation (GI): Soft to palpation, nontender and no guarding Auscultation: normal bowel sounds : General: Yes no CVA tenderness Back/Spine/Pelvis: Back: no CVA tenderness Skin: General skin exam: no rashes or lesions noted Neuro: General: oriented to person and oriented to place Cranial nerves: Yes CN's II-XII intact bilaterally and Yes Equal, round and reactive pupils present Cognition (Neuro): normal cognition Motor exam (neuro): 5/5 motor strength present throughout Extrem: General: Yes normal to inspection Psych: Appearance: grossly normal Speech and movement: Normal speech and movement present Affect: normal affect Attitude: cooperative Thought process: Normal thought process present Thought content: Normal thought content present Course Course Course Narrative: 61-year-old male with history of diabetes, hypertension, hyperlipidemia, coronary disease and myocardial infarction 8 years prior who presents emergency department for evaluation of sudden onset of left-sided chest pain that came on while he was lying down. The pain is located in his left chest, the pain is a constant throbbing sensation is 8/10 at its worse and at the time evaluation. Patient states he has had similar pain. Physical examination was unremarkable. I ordered a CBC, CMP, D-dimer, PT/INR, PTT, troponin, EKG and chest x-ray one view. Patient was ordered to get morphine 4 mg IV and Zofran 4 mg IV. 2210: The patient got some improvement of his chest pain from the 1st dose of morphine. His pain is now 7/10. The patient still is complaining of itchiness but it is not worse after receiving morphine. His laboratory evaluation did reveal an elevated glucose of 310, elevated BUN creatinine of 21 and 1.46, mild anemia with an H&H of 12 and 37. The patient's 1st high sensitivity troponin I was 9.4, this will be repeated at 22:00 hours. Chest x-ray was unremarkable. I ordered a 2nd dose of morphine 4 mg IV. I will repeat his EKG. Patient will also be given Benadryl 25 mg IV to see if this helps with his itchiness. 2252: The patient's pain did improve to 5/10. Patient's repeat troponin was only 10 which is reassuring, this time I do not think that the patient's pain is secondary to myocardial injury is most likely caused by musculoskeletal pain. Patient was given a another dose of morphine 4 mg IV. The patient was advised to continue taking his medications as prescribed by his doctor pain and to return if his symptoms get worse. MDM - Chest Pain Lab Data Result diagrams: 11/23/21 19:09 11/23/21 19:09 Labs: Lab Results 11/23/21 11/23/21 11/23/21 Range/Units 17:52 19:09 19:09 WBC 6.5 (4.8-10.8) X10*3/uL RBC 4.58 L (4.60-5.80) X10*6/uL Hgb 12.3 L (14.0-18.0) g/dl Hct 37.2 L (42.0-52.0) % MCV 81.2 (80.0-98.0) fL MCH 26.9 L (27.0-33.0) pg MCHC 33.1 (31.0-36.0) g/dl RDW 13.7 (11.0-16.0) % Plt Count 220 (160-400) X10*3/uL MPV 9.9 (9.4-12.4) fL Immature Gran % (Auto) 0.2 (0.0-0.4) % Neut % (Auto) 50.5 (45-73) % Lymph % (Auto) 36.6 (20-40) % [place] % (Auto) 7.5 (2-11) % Eos % (Auto) 4.7 H (0-4) % Baso % (Auto) 0.5 (0-2) % Lymph # (Auto) 2.4 (1.2-4.9) X10*3/uL [place] # (Auto) 0.5 (0.1-1.2) X10*3/uL Eos # (Auto) 0.3 (0.0-0.4) X10*3/uL Baso # (Auto) 0.0 (0.0-0.2) X10*3/uL Abs Immat Gran (auto) 0.01 (0.00-0.03) X10*3/uL Absolute Neuts (auto) 3.3 (2.0-8.3) x10*3/uL Absolute Nucleated RBC 0.000 (0.0-0.012) X10*3/uL Nucleated RBC % (auto) 0.0 (0.0-0.2) /100WBC PT (10.0-13.1) SEC INR (0.9-1.1) APTT (24.1-38.0) SEC D-Dimer High Sensitivty NG/ML Sodium 138 (135-145) mmol/L Potassium 4.4 (3.3-5.1) mmol/L Chloride 103 (96-108) mmol/L Carbon Dioxide 24 (22-29) mmol/L Anion Gap 15 (12-20) BUN 21 H (9-16) mg/dL Creatinine 1.46 H (0.5-1.4) mg/dL Estim Creat Clear Calc 57.1 Estimated GFR 49 POC Glucose 296 H (60-115) mg/dL Random Glucose 310 H D (60-115) mg/dL Calcium 8.9 (8.4-10.2) mg/dL Total Bilirubin 0.5 (0.0-1.0) mg/dL AST 28 D (5-37) U/L ALT 24 (0-40) U/L Alkaline Phosphatase 108 (39-117) U/L Troponin I High Sens (<3.5-35.0) ng/L Total Protein 7.1 (6.5-8.0) g/dL Albumin 4.1 (3.5-5.0) g/dL Lipase 52 (8-78) U/L 11/23/21 11/23/21 11/23/21 Range/Units 19:09 19:09 21:36 WBC (4.8-10.8) X10*3/uL RBC (4.60-5.80) X10*6/uL Hgb (14.0-18.0) g/dl Hct (42.0-52.0) % MCV (80.0-98.0) fL MCH (27.0-33.0) pg MCHC (31.0-36.0) g/dl RDW (11.0-16.0) % Plt Count (160-400) X10*3/uL MPV (9.4-12.4) fL Immature Gran % (Auto) (0.0-0.4) % Neut % (Auto) (45-73) % Lymph % (Auto) (20-40) % [place] % (Auto) (2-11) % Eos % (Auto) (0-4) % Baso % (Auto) (0-2) % Lymph # (Auto) (1.2-4.9) X10*3/uL [place] # (Auto) (0.1-1.2) X10*3/uL Eos # (Auto) (0.0-0.4) X10*3/uL Baso # (Auto) (0.0-0.2) X10*3/uL Abs Immat Gran (auto) (0.00-0.03) X10*3/uL Absolute Neuts (auto) (2.0-8.3) x10*3/uL Absolute Nucleated RBC (0.0-0.012) X10*3/uL Nucleated RBC % (auto) (0.0-0.2) /100WBC PT 11.0 (10.0-13.1) SEC INR 1.0 (0.9-1.1) APTT 36.5 (24.1-38.0) SEC D-Dimer High Sensitivty < 150 NG/ML Sodium (135-145) mmol/L Potassium (3.3-5.1) mmol/L Chloride (96-108) mmol/L Carbon Dioxide (22-29) mmol/L Anion Gap (12-20) BUN (9-16) mg/dL Creatinine (0.5-1.4) mg/dL Estim Creat Clear Calc Estimated GFR POC Glucose (60-115) mg/dL Random Glucose (60-115) mg/dL Calcium (8.4-10.2) mg/dL Total Bilirubin (0.0-1.0) mg/dL AST (5-37) U/L ALT (0-40) U/L Alkaline Phosphatase (39-117) U/L Troponin I High Sens 9.4 10.0 (<3.5-35.0) ng/L Total Protein (6.5-8.0) g/dL Albumin (3.5-5.0) g/dL Lipase (8-78) U/L Discharge Plan Discharge Clinical Impression: Chest pain Qualifiers: Chest pain type: unspecified Qualified Code(s): R07.9 - Chest pain, unspecified Patient Disposition: Home, Self-Care Instructions: Chest Pain (ED) Additional Instructions: Your blood work was unremarkable. Your chest x-ray was normal. Your EKG was unremarkable. At this time, I believe that the pain in your chest is caused by the muscles and joints of your chest. Continue taking your pain medications as prescribed by your doctor. Follow-up with your doctor in 2 days. Please return to the emergency department if your symptoms get worse or if you develop any symptoms that are concerning to you. Prescriptions: No Action pantoprazole 20 mg tablet,delayed release (DR/EC) 20 mg PO DAILY Qty: 30 3RF hydroxyzine HCl 25 mg tablet 25 mg PO BEDTIME PRN (Reason: itching) Qty: 14 0RF acetaminophen 500 mg capsule 500 mg PO Q6H PRN (Reason: Pain) aspirin [Adult Low Dose Aspirin] 81 mg tablet,delayed release (DR/EC) 81 mg PO DAILY clopidogrel [Plavix] 75 mg tablet 75 mg PO DAILY cilostazol 100 mg tablet 100 mg PO BID (DME) FreeStyle Lite Strips Strip See Rx Instructions .ROUTE .MEDSUPPLY Qty: 10 Rx Instructions: As directed isosorbide mononitrate 60 mg tablet extended release 24 hr 60 mg PO QAM Lantus Solostar U-100 Insulin 100 unit/mL (3 mL) insulin pen 10 unit subcut QPM amlodipine [Norvasc] 10 mg tablet 10 mg PO DAILY albuterol sulfate 2.5 mg/0.5 mL solution for nebulization 5 mg inhalation Q4H alcohol swabs [Alcohol Prep Pads] Pads, Medicated topical glucose [Dex4 Glucose] 4 gram tablet,chewable 4 g PO Q15M PRN (Reason: Hypoglycemia) Rx Instructions: until symptoms of low blood sugar are controlled risperidone 1 mg/mL solution 2 mg PO BEDTIME atorvastatin 80 mg tablet 80 mg PO DAILY Novolin N Flexpen 100 unit/mL (3 mL) insulin pen 20 unit subcut QAM tramadol 50 mg tablet 50 mg PO TID PRN (Reason: Pain) Flovent HFA 110 mcg/actuation HFA aerosol inhaler 2 puff inhalation BID (DME) lancets [TRUEplus Lancets] 28 gauge misc See Rx Instructions Not Applicable .MEDSUPPLY Qty: 100 Rx Instructions: As directed (DME) pen needle, diabetic [Pentips] 32 gauge x 5/32 needle See Rx Instructions .ROUTE DAILY Qty: 50 Rx Instructions: As directed cholecalciferol (vitamin D3) 25 mcg (1,000 unit) tablet 25 mcg PO QAM insulin aspart U-100 [Novolog Flexpen U-100 Insulin] 100 unit/mL (3 mL) insulin pen subcut lisinopril 40 mg tablet 40 mg PO QAM gabapentin 300 mg capsule 100 mg PO TID risperidone 3 mg tablet 3 mg PO BEDTIME carvedilol 6.25 mg tablet 6.25 mg PO acetaminophen 500 mg tablet 1,000 mg PO Q6H PRN (Reason: pain)
--- NOTE | 2021-11-23 18:27 | ECG_ITS ---
Test Reason : CHEST PAIN Blood Pressure : / mmHG Vent. Rate : 081 BPM Atrial Rate : 081 BPM P-R Int : 150 ms QRS Dur : 086 ms QT Int : 418 ms P-R-T Axes : 031 -40 075 degrees QTc Int : 485 ms Normal sinus rhythm Left axis deviation Prolonged QT Abnormal ECG When compared with ECG of 19-DEC-2010 14:36, Non-specific change in ST segment in Lateral leads T wave inversion no longer evident in Inferior leads Referred By: Marcell Landa Electronically Signed By:NANO MATOS
[2021-11-23] MEDS: Morphine Sulfate 4 MG/ML CARTRIDGE IVPUSH ×3 (18:37→23:05)
[2021-11-23] MEDS: ondansetron HCL 4 MG/2 ML VIAL IVPUSH (18:38)
[2021-11-23 19:14] LABS: MANUAL DIFF FLAG NO
[2021-11-23 19:15] LABS: Basophils Percent Auto 0.5 % (0-2); Eosinophils Absolute Auto 0.3 X10*3/uL (0.0-0.4); Eosinophils Percent Auto 4.7 % (0-4); Hematocrit 37.2 % (42.0-52.0); Hemoglobin 12.3 g/dl (14.0-18.0); Imm Gran Abs Auto 0.01 X10*3/uL (0.00-0.03); Imm Gran Pct Auto 0.2 % (0.0-0.4); Lymphocytes Absolute Auto 2.4 X10*3/uL (1.2-4.9); Lymphocytes Percent Auto 36.6 % (20-40); Mean Corpuscular HGB Conc 33.1 g/dl (31.0-36.0); Mean Corpuscular Hemoglobin 26.9 pg (27.0-33.0); Mean Corpuscular Volume 81.2 fL (80.0-98.0); Mean Platelet Volume 9.9 fL (9.4-12.4); Monocytes Absolute Auto 0.5 X10*3/uL (0.1-1.2); Monocytes Percent Auto 7.5 % (2-11); Neutrophils Absolute Auto 3.3 x10*3/uL (2.0-8.3); Neutrophils Percent Auto 50.5 % (45-73); Platelet Count 220 X10*3/uL (160-400); Red Blood Count 4.58 X10*6/uL (4.60-5.80); Red Cell Distribution Width 13.7 % (11.0-16.0); White Blood Count 6.5 X10*3/uL (4.8-10.8)
[2021-11-23 19:25] LABS: Partial Thromboplastin Time 36.5 SEC (24.1-38.0)
[2021-11-23 19:32] LABS: D Dimer High Sensitivity < 150 NG/ML
[2021-11-23 19:35] LABS: Alanine Aminotransferase 24 U/L (0-40); Albumin Level 4.1 g/dL (3.5-5.0); Alkaline Phosphatase 108 U/L (39-117); Anion Gap 15 (12-20); Aspartate Amino Transferase 28 U/L (5-37); Bilirubin Total 0.5 mg/dL (0.0-1.0); Blood Urea Nitrogen 21 mg/dL (9-16); Calcium 8.9 mg/dL (8.4-10.2); Carbon Dioxide 24 mmol/L (22-29); Chloride 103 mmol/L (96-108); Creatinine Clr Calc Pharmacy 57.1; Estimated Glomerular Filt Rate 49; Glucose Random 310 mg/dL (60-115); Lipase 52 U/L (8-78); Potassium 4.4 mmol/L (3.3-5.1); Sodium 138 mmol/L (135-145); Total Protein 7.1 g/dL (6.5-8.0)
[2021-11-23 19:42] LABS: Troponin-I High Sensitivity 9.4 ng/L (<3.5-35.0)
[2021-11-23] MEDS: diphenhydrAMINE HCL 50 MG/ML VIAL 25 MG IVPUSH (20:16)
[2021-11-23] MEDS: Aspirin 81 MG TAB.CHEW 324 MG PO (20:16)
[2021-11-23 20:30] VITALS: BP 124/72; PULSE 71; RESP 16; O2SAT 96
[2021-11-23 21:48] VITALS: BP 130/90; PULSE 76; RESP 13; TEMP 36.8; O2SAT 95
== END 2021-11-23 23:09 | disposition home or self-care (01) ==
PROVIDERS: Emergency Provider Emergency Medicine Emergency Medical Services
DX: R07.9 Chest pain, unspecified (principal); E11.9 Type 2 diabetes mellitus without complications; I10 Essential (primary) hypertension; E78.5 Hyperlipidemia, unspecified; I25.2 Old myocardial infarction; Z79.82 Long term (current) use of aspirin; Z79.4 Long term (current) use of insulin; Z79.02 Long term (current) use of antithrombotics/antiplatelets; Z87.891 Personal history of nicotine dependence
CPT/HCPCS: 36415; 71045; 80053; 82947; 83690; 84484; 85025; 85379; 85610; 85730; 93005; 96374; 96375; 96376; 99284; J1200; J2270; J2405

== ENCOUNTER 2022-02-07 12:56 | Outpatient (REF) | payer MEDICAID, SELFPAY ==
--- NOTE | ~2022-02-07 | US_ITS ---
EXAMINATION: COLOR-FLOW DUPLEX IMAGING OF THE BILATERAL LOWER EXTREMITY ARTERIAL SYSTEM. VELOCITY MEASUREMENTS THROUGHOUT THE FEMORAL ARTERIES WITH ANKLE-BRACHIAL PERIPHERAL ARTERIAL TESTING. Interventional Radiologist: Og Merritt M.D., F.S.I.R., F.A.C.R. CLINICAL INFORMATION: This is a 61-year-old male former smoker, diabetes, femoral angioplasty in July,. RIGHT FEMORAL RUNOFF VELOCITIES: The right common femoral artery measures 140 cm/s and biphasic. The right profunda femoral artery is 145 cm/s and is biphasic. Right proximal superficial femoral artery is occluded. Mid superficial femoral artery is 213 cm/s and biphasic. Distal right superficial femoral artery measures 46 cm/s and is monophasic. Right popliteal velocity measures 70 cm/s and is biphasic. The posterior tibial artery velocity measures 54 cm/s and was monophasic. The right ankle-brachial next is 1.12. LEFT FEMORAL RUNOFF VELOCITIES: The left common femoral artery measures 187 cm/s and triphasic. The left profunda femoral artery is 53 cm/s and is biphasic. Left proximal superficial femoral artery measures 202 cm/s and biphasic. Mid superficial femoral artery is 110 cm/s and triphasic. Distal left superficial femoral artery measures 151 cm/s and is biphasic. Left popliteal velocity measures 104 cm/s and is triphasic. The posterior tibial artery velocity measures 87 cm/s and was biphasic. LEFT FEMORAL STENT VELOCITIES: Marshall artery proximal to stent: 202 cm/s and biphasic. Proximal stent: 140 cm/s and biphasic. Mid stent: 110 cm/s and triphasic. Distal stent: 164 cm/s and biphasic. Negative artery distal to stent 150 cm/s and biphasic. The left ankle-brachial index is 1.13. US/US arterial duplex LE BI IMPRESSION: 1. There is a short occlusion in the right superficial femoral artery with elevated velocities distally. However, there is compensation within normal ankle-brachial index of 1.12. 2. The patient is status post stent placement throughout the left superficial femoral artery. The stents appear patent. The ankle-brachial index measures 1.13.
== END 2022-02-07 12:57 | disposition home or self-care (01) ==
LOC: HO.US 12:56
PROVIDERS: Visit Provider Surgery Vascular Surgery
DX: I73.9 Peripheral vascular disease, unspecified (principal)
CPT/HCPCS: 93923; 93925

== ENCOUNTER → 2022-02-09 09:02 | Outpatient (BNVA) | payer MEDICAID, SELFPAY | PROVIDERS: PCP Internal Medicine; Visit Provider Surgery Vascular Surgery | DX: I73.9 Peripheral vascular disease, unspecified (principal) | CPT/HCPCS: 99212 ==

== ENCOUNTER 2022-03-08 05:54 | Day surgery (SDC) | payer MEDICAID, SELFPAY ==
[2022-03-08] VITALS (11 sets, daily range): BP systolic 107–143; BP diastolic 53–74; PULSE 64–83; RESP 16–18; TEMP 36.3–36.8; O2SAT 95–98; BMI 38.2
[2022-03-08 06:19] LABS: Glucose, Whole Blood 235 mg/dL (60-115)
[2022-03-08 06:51] LABS: MANUAL DIFF FLAG NO
[2022-03-08] MEDS: 0.9 % Sodium Chloride 1,000 ML 100 ML IVCONT (06:52)
[2022-03-08 06:57] LABS: Basophils Percent Auto 0.5 % (0-2); Eosinophils Absolute Auto 0.5 X10*3/uL (0.0-0.4); Eosinophils Percent Auto 7.2 % (0-4); Hemoglobin 12.9 g/dl (14.0-18.0); Imm Gran Abs Auto 0.02 X10*3/uL (0.00-0.03); Imm Gran Pct Auto 0.3 % (0.0-0.4); Mean Corpuscular HGB Conc 32.3 g/dl (31.0-36.0); Mean Corpuscular Hemoglobin 26.8 pg (27.0-33.0); Mean Platelet Volume 10.4 fL (9.4-12.4); Monocytes Absolute Auto 0.4 X10*3/uL (0.1-1.2); Monocytes Percent Auto 5.6 % (2-11); Neutrophils Absolute Auto 3.6 x10*3/uL (2.0-8.3); Neutrophils Percent Auto 55.4 % (45-73); Platelet Count 230 X10*3/uL (160-400); Red Blood Count 4.82 X10*6/uL (4.60-5.80); Red Cell Distribution Width 14.9 % (11.0-16.0); White Blood Count 6.6 X10*3/uL (4.8-10.8)
[2022-03-08 07:14] LABS: Blood Urea Nitrogen 14 mg/dL (9-16); Creatinine Clr Calc Pharmacy 61.7; Estimated Glomerular Filt Rate 54
--- NOTE | 2022-03-08 09:06 | P.OP_ITS ---
Operative Note Operative Note Date of Service: 03/08/22 Narrative: Angiogram report from [facility] Preoperative diagnosis: Atherosclerosis of right lower extremity with activity limiting claudication Postoperative diagnosis: Same Procedure: 1. Ultrasound-guided left common femoral access 2. Aortogram with right lower extremity runoff Surgeon:Quique Whitney M.D., FACS, RPVI News Analyst:None Anesthesia: Local with moderate conscious sedation. Total intraservice mod erate sedation time was 30 minutes. I monitored the patient's level of consciousness and physiologic status continuously throughout the procedure. Specimens:none Drains:none Estimated blood loss: Less than 10 ml Implant: Non Indications: 61-year-old gentleman with a history of peripheral vascular disease presents for endovascular intervention. Noted to have SFA disease on noninvasive testing The patient has signed the informed consent after reviewing risks, complications, benefits, and alternatives previously discussed with the patient. The patient was given the opportunity to ask any additional questions or voice any concerns. All questions were answered to the patient's satisfaction. Procedure in detail: Patient was brought to the angiography suite prior to which a time-out was called for patient identification and site verification. Bilateral groins were prepped and draped in the standard surgical fashion. Under ultrasound guidance left common femoral was punctured with micro puncture needle and wire. Subsequently a precision 4 German sheath was then placed. SenSage wire was advanced to the level of the aorta. 4 German Flush catheter was brought up and parked at the level of the renal arteries. Aortogram was then undertaken. Catheter was brought down to the level of the iliac bifurcation. Iliacs were subsequently imaged. Catheter was then brought in up and over to the right side SFA. Runoff study was then undertaken. It appeared to be a total SFA occlusion. Several attempts were made to cross the with a stiff Glidewire. We were unsuccessful. We then undertook multiple orthogonal views. Catheter wire sheath were then removed. Direct pressure was held for 10 minutes. Patient tolerated the procedure well. Returned to recovery with stable vitals. Interpretation of films: 1. Ultrasound demonstrates appropriate femoral puncture. Image of which was saved. 2. Aortogram demonstrates appropriate caliber aorta. Minimal disease. Appropriate take-off of the renals. 3. Iliac images demonstrate no significant disease left common iliac stent was patent 4. Right Leg Common femoral artery: No significant disease Profundus Femoris: No significant disease Superficial femoral artery: Total occlusion from origin on down to above knee Popliteal artery (p1,p2,p3): Patent Anterior tibial artery: Patent Peroneal artery: Patent but diminutive Posterior tibial artery: Patent Dorsalis pedis/plantar arch: Incomplete Conclusion: 1. Successful diagnostic angiogram. Should symptoms persist will require right- sided femoral to above knee popliteal bypass. 2. Anticoagulation status: No change This note is constructed using voice recognition software. While every effort has been made to ensure accuracy, freight rate specialist errors may have been included. Thank you for allowing me to participate in the care of your patient. Yours sincerely, Quique Whitney MD, FACS, R.P.V.I.
== END 2022-03-08 13:10 | disposition home or self-care (01) ==
PROVIDERS: Visit Provider Surgery Vascular Surgery
DX: E11.51 Type 2 diabetes mellitus with diabetic peripheral angiopathy without gangrene (principal); I70.211 Atherosclerosis of native arteries of extremities with intermittent claudication, right leg; Z79.4 Long term (current) use of insulin; I25.10 Atherosclerotic heart disease of native coronary artery without angina pectoris; I25.2 Old myocardial infarction; Z87.891 Personal history of nicotine dependence; Z79.899 Other long term (current) drug therapy
CPT/HCPCS: 36246; 36415; 75630; 76937; 82565; 82947; 84520; 85025; 99152; 99153; C1769; C1887; J2250; J3010; Q9967

== ENCOUNTER → 2022-03-28 14:19 | Outpatient (BNVA) | payer MEDICAID, SELFPAY | PROVIDERS: PCP Internal Medicine; Visit Provider Surgery Vascular Surgery | DX: I73.9 Peripheral vascular disease, unspecified (principal) | CPT/HCPCS: 99212 ==

== ENCOUNTER → 2022-05-31 08:59 | Outpatient (BNVA) | payer MEDICAID, SELFPAY | PROVIDERS: PCP Internal Medicine; Visit Provider Nurse Practitioner Family | DX: K59.04 Chronic idiopathic constipation (principal); K21.9 Gastro-esophageal reflux disease without esophagitis; Z79.899 Other long term (current) drug therapy | CPT/HCPCS: 99212 ==

== ENCOUNTER 2022-06-19 08:54 | Outpatient (REF) | payer MEDICAID, SELFPAY ==
--- NOTE | ~2022-06-19 | XR_ITS ---
EXAMINATION: XR SHOULDER, RIGHT CLINICAL INFORMATION: Pain COMPARISON: None TECHNIQUE: AP external rotation, Grashey, scapular Y, and axillary views of the right shoulder. XR/XR shoulder RT min 2V FINDINGS/IMPRESSION: No acute fracture or dislocation. There is mild elevation of the right humeral head relative to glenoid fossa which may reflect underlying rotator cuff pathology.
== END 2022-06-19 08:55 | disposition home or self-care (01) ==
LOC: HO.XRAY 08:54
PROVIDERS: PCP Internal Medicine; Visit Provider Student in an Organized Health Care Education/Training Program
DX: M25.511 Pain in right shoulder (principal)
CPT/HCPCS: 73030

== ENCOUNTER 2022-07-24 07:24 | Outpatient (REF) | payer MEDICAID, SELFPAY ==
[2022-07-24 08:35] LABS: Prostate Specific Antigen 0.21 ng/mL (<0.05-4.0)
== END 2022-07-24 07:25 | disposition home or self-care (01) ==
LOC: HO.LAB 07:24
PROVIDERS: PCP Internal Medicine; Visit Provider Urology
DX: Z12.5 Encounter for screening for malignant neoplasm of prostate (principal); R97.20 Elevated prostate specific antigen [PSA]
CPT/HCPCS: 36415; 84153

== ENCOUNTER → 2022-07-28 08:51 | Outpatient (BNVA) | payer MEDICAID, SELFPAY | PROVIDERS: PCP Internal Medicine; Visit Provider Urology | DX: N41.9 Inflammatory disease of prostate, unspecified (principal); R97.20 Elevated prostate specific antigen [PSA]; N50.89 Other specified disorders of the male genital organs; Z79.01 Long term (current) use of anticoagulants | CPT/HCPCS: 51798; 99212 ==

== ENCOUNTER 2022-08-02 14:19 | Outpatient (REF) | payer MEDICAID, SELFPAY ==
--- NOTE | ~2022-08-02 | XR_ITS ---
EXAMINATION: XR SHOULDER, LEFT CLINICAL INFORMATION: Pain left shoulder COMPARISON: None TECHNIQUE: AP external rotation, Grashey, scapular Y, and axillary views of the left shoulder. FINDINGS: The bones and soft tissues are normal. No fracture. Glenohumeral and acromioclavicular alignment is anatomic with normal joint space. No abnormal soft tissue calcifications. XR/XR shoulder LT min 2V IMPRESSION: Unremarkable left shoulder.
== END 2022-08-02 14:20 | disposition home or self-care (01) ==
LOC: HO.HOSX 14:19
PROVIDERS: Visit Provider Physician Assistant
DX: M25.512 Pain in left shoulder (principal); S46.001A Unspecified injury of muscle(s) and tendon(s) of the rotator cuff of right shoulder, initial encounter
CPT/HCPCS: 73030; 99202

== ENCOUNTER 2022-08-22 07:10 | Outpatient (REF) | payer MEDICAID, SELFPAY ==
--- NOTE | ~2022-08-22 | US_ITS ---
EXAMINATION: ANKLE-BRACHIAL INDICES SINGLE LEVEL PULSE VOLUME RECORDING ARTERIAL DUPLEX BILATERAL LEGS CLINICAL INFORMATION: Peripheral vascular disease. COMPARISON: 02/07/2022. TECHNIQUE: Ankle-brachial indices and PVR at the ankle were obtained. Duplex Doppler of the bilateral lower extremity arterial systems was performed. FINDINGS: RIGHT: Ankle-brachial index: 1.19 The dorsalis pedis RE is 1.19 with a pressure greater than 200 which may indicate noncompressible vessels and an unreliable RE. The posterior tibial RE is 0.80. PVR: Mildly abnormal Common femoral: PSV 198 cm/s. Biphasic waveform. Deep femoral: PSV 137 cm/s. Biphasic waveform. Proximal superficial femoral: Segmental occlusion. Where patent PSV 103 cm/s. Biphasic waveform. Mid superficial femoral: Severe disease. PSV 22 cm/s. Monophasic waveform. Distal superficial femoral: Severe disease. PSV 55 cm/s. Monophasic waveform. Popliteal: PSV 40 cm/s. Monophasic waveform. Posterior tibial: PSV 56 cm/s. Monophasic waveform. Peroneal: PSV 31 cm/s. Monophasic waveform. LEFT: Ankle-brachial index: 1.19 The dorsalis pedis RE is 1.19 with a pressure greater than 200 which may indicate noncompressible vessels and an unreliable RE. The posterior tibial RE is 0.67. PVR: Mildly abnormal Common femoral: PSV 175 cm/s. Triphasic waveform. Deep femoral: PSV 167 cm/s. Biphasic waveform. [place] artery proximal to SFA stent: PSV 220 cm/s. Biphasic waveform. Proximal SFA stent: PSV 90 cm/s. Biphasic waveform. Mid SFA stent: PSV 66 cm/s. Triphasic waveform. Distal SFA stent: PSV 154 cm/s. Biphasic waveform. 2:1 velocity shift. [place] artery distal to SFA stent: PSV 148 cm/s. Triphasic waveform. Popliteal: PSV 108 cm/s. Triphasic waveform. Posterior tibial: Severely diseased and not well visualized. Where visible: PSV 85 cm/s. Biphasic waveform. Peroneal: Appears occluded versus very slow flow. US/US arterial duplex LE BI IMPRESSION: Right: Ankle-brachial index a 1.19 may not be reliable due to noncompressible dorsalis pedis. The posterior tibial RE is 0.80. The PVR waveform is abnormal. There is severe SFA disease with at least one segmental occlusion in the proximal segment. Left: Ankle-brachial index of 1.19 may not be reliable due to noncompressible dorsalis pedis. The posterior tibial RE is 0.67. The PVR waveform is abnormal. Patent SFA stent with a moderate focal stenosis in the distal stent. Severe posterior tibial disease and possibly occluded peroneal artery.
== END 2022-08-22 07:11 | disposition home or self-care (01) ==
LOC: HO.US 07:10
PROVIDERS: PCP Internal Medicine; Visit Provider Surgery Vascular Surgery
DX: I70.213 Atherosclerosis of native arteries of extremities with intermittent claudication, bilateral legs (principal)
CPT/HCPCS: 93923; 93925

== ENCOUNTER 2022-08-28 08:00 | Outpatient (REF) | payer MEDICAID, SELFPAY ==
--- NOTE | ~2022-08-28 | MR_ITS ---
EXAMINATION: MR SHOULDER WITHOUT CONTRAST, RIGHT CLINICAL INFORMATION: Shoulder pain COMPARISON: X-ray 08/14/2022 TECHNIQUE: MRI of the shoulder without contrast was performed on a high-field scanner. FINDINGS: ROTATOR CUFF: Mild-moderate supraspinatus tendinosis. Moderate infraspinatus tendinosis. 0.8 x 1.2 cm. (AP x ML) intrasubstance partial tear in the proximal anterior fibers. Teres minor is intact. Moderate subscapularis tendinosis. No muscle atrophy or fatty infiltration. BICEPS: Question mild proximal biceps tendinosis. CORACOACROMIAL ARCH: The undersurface of the acromion is curved with no subacromial spur. Moderate acromioclavicular arthritis. Trace edema/fluid in the subacromial subdeltoid space. LABRUM/CAPSULE: Posterosuperior labral degenerative fraying. Superior labral degeneration, with fraying of its posterior aspect. GLENOHUMERAL JOINT/MARROW: Greater tuberosity subcortical cysts. No fracture. Small joint effusion. MR/MR shoulder RT wo con IMPRESSION: 1. Mild-moderate supraspinatus tendinosis. 2. Moderate infraspinatus tendinosis. 0.8 x 1.2 cm intrasubstance partial tear. 3. Moderate subscapularis tendinosis. 4. Question mild proximal biceps tendinosis. 5. Posterosuperior labral degenerative fraying. Superior labral degenerative fraying. 6. Moderate acromioclavicular arthritis. 7. Small glenohumeral joint effusion.
== END 2022-08-28 08:01 | disposition home or self-care (01) ==
LOC: HO.MRI 08:00
PROVIDERS: PCP Internal Medicine; Visit Provider Physician Assistant
DX: S46.001A Unspecified injury of muscle(s) and tendon(s) of the rotator cuff of right shoulder, initial encounter (principal)
CPT/HCPCS: 73221

== ENCOUNTER → 2022-08-29 08:48 | Outpatient (BNVA) | payer MEDICAID, SELFPAY | PROVIDERS: PCP Internal Medicine; Visit Provider Nurse Practitioner Family | DX: Z12.11 Encounter for screening for malignant neoplasm of colon (principal); K59.04 Chronic idiopathic constipation; K21.9 Gastro-esophageal reflux disease without esophagitis; K58.2 Mixed irritable bowel syndrome | CPT/HCPCS: 99212 ==

== ENCOUNTER → 2022-09-28 10:20 | Outpatient (BNVA) | payer MEDICAID, SELFPAY | PROVIDERS: PCP Internal Medicine; Visit Provider Physician Assistant | DX: S46.001A Unspecified injury of muscle(s) and tendon(s) of the rotator cuff of right shoulder, initial encounter (principal) | CPT/HCPCS: 20610; 99212; J1020 ==

== ENCOUNTER 2022-10-05 06:46 | Day surgery (SDC) | payer MEDICAID, SELFPAY ==
[2022-10-03 14:51] VITALS: BMI 38.6
--- NOTE | 2022-10-04 14:49 | HO.ANESPROP2 ---
Documented by User: Esperanza Perdomo NP 10/04/22 15:02 HPI - Anesthesia Eval Consult details Narrative: 62yo M for Upper Endoscopy and Colonoscopy Last cardiac office visit 05/2021 He underwent Lexiscan which showed fixed basal to mid inferior defect and t.i.d.. He was taken for diagnostic angiogram where we noticed occluded mid right coronary artery with [id number] collaterals and 50% 2nd diagonal stenosis.? We decided to medically manage him.? He was advised to proceed with endoscopy with intermediate risk. EGD 07/2021 Pt on plavix for PAD/RLE stent - ok to continue periop per Dr Ceja [facility] Active Problems Active Problems: All Active Problems (Updated 08/02/22 @ 10:19 by Barber Bishop PA-C) Injury of right rotator cuff (Acute) Prostatitis (Acute) Chronic idiopathic constipation (Acute) Tubular adenoma (Acute) Chest pain (Acute) CAD (coronary artery disease) (Acute) Preop cardiovascular exam (Acute) Abnormal stress test (Acute) PVD (peripheral vascular disease) (Acute) Family history of prostate cancer (Acute) Scrotal swelling (Acute) Elevated PSA (Acute) Past Medical History Medical History CAD (coronary artery disease) Chronic idiopathic constipation Diabetes Elevated PSA Family history of prostate cancer Myocardial infarct, old PVD (peripheral vascular disease) Scrotal swelling Tubular adenoma Family History Family History Maternal Grandmother Diabetes Paternal Grandmother Diabetes Brother Diabetes Mother No problems noted. Father Diabetes Family history of problems with anesthesia: No Surgical History Surgical History History of cardiac cath History of esophagogastroduodenoscopy (EGD) History of surgery History of vascular surgery Hx of arthroscopic knee surgery Hx of colonoscopy Hx of ligation of vein History of Problems with Anesthesia: No Social History Social History Alcohol intake: never Patient Tobacco Use Status: Former Tobacco user Quit Date: 2014 Years Smoked: 35+ Use of substances other than those prescribed or required for medical reasons: No Are you DNR?: No Advance Directives: No Advance Directives Information Provided: Yes Recently lost weight without trying: Yes How much weight loss: 2-13 pounds Nutrition Risks: No Nutritional Risk Poor oral hygiene: No Current occupational status: disabled Current occupation: right hand dominant Meds Allergies Allergy/AdvReac Type Severity Reaction Status Date / Time No Known Allergies Allergy Verified 09/28/22 10:30 Home Medications Medication Instructions Recorded Confirmed Last Taken Type acetaminophen 500 mg capsule 500 mg PO Q6H PRN Pain 11/11/20 03/08/22 03/08/22 History albuterol sulfate 2.5 mg/0.5 mL 5 mg inhalation Q4H 11/11/20 03/08/22 08/16/21 History solution for nebulization amlodipine 10 mg tablet (Norvasc) 10 mg PO DAILY 11/11/20 03/08/22 03/08/22 History aspirin 81 mg tablet,delayed 81 mg PO DAILY 11/11/20 03/08/22 03/08/22 History release (Adult Low Dose Aspirin) atorvastatin 80 mg tablet 80 mg PO DAILY 11/11/20 03/08/22 03/08/22 History blood sugar diagnostic (FreeStyle #10 ea 11/11/20 06/22/21 Unknown History Lite Strips) cilostazol 100 mg tablet 100 mg PO BID 11/11/20 03/08/22 03/08/22 History clopidogrel 75 mg tablet (Plavix) 75 mg PO DAILY 11/11/20 03/08/22 03/08/22 History glucose 4 gram chewable tablet 4 g PO Q15M PRN Hypoglycemia 11/11/20 03/08/22 Unknown History (Dex4 Glucose) insulin NPH isoph U-100 human 100 20 unit subcut QAM 11/11/20 03/08/22 03/08/22 History unit/mL (3 mL) subcutaneous pen (Novolin N FlexPen) insulin glargine 100 unit/mL (3 10 unit subcut QPM 11/11/20 03/08/22 Unknown History mL) subcutaneous pen (Lantus Solostar U-100 Insulin) isosorbide mononitrate 60 mg 60 mg PO QAM 11/11/20 03/08/22 03/08/22 History tablet,extended release 24 hr risperidone 1 mg/mL oral solution 2 mg PO BEDTIME 11/11/20 03/08/22 Unknown History tramadol 50 mg tablet 50 mg PO TID PRN Pain 11/11/20 08/12/21 Unknown History carvedilol 6.25 mg tablet 6.25 mg PO BID 07/12/21 03/08/22 03/08/22 History cholecalciferol (vitamin D3) 25 25 mcg PO QAM 07/12/21 03/08/22 03/08/22 History mcg (1,000 unit) tablet gabapentin 300 mg capsule 100 mg PO TID 07/12/21 03/08/22 03/08/22 History insulin aspart U-100 100 unit/mL subcut 07/12/21 Unknown History (3 mL) subcutaneous pen (Novolog FlexPen U-100 Insulin aspart) lancets 28 gauge (TRUEplus Lancets) #100 ea 07/12/21 Unknown History lisinopril 40 mg tablet 40 mg PO QAM 07/12/21 03/08/22 03/08/22 History pen needle, diabetic 32 gauge x #50 ea 07/12/21 Unknown History (Pentips) risperidone 3 mg tablet 3 mg PO BEDTIME 07/12/21 03/08/22 Unknown History fluticasone propionate 110 2 puff inhalation BID 08/31/21 03/08/22 Unknown History mcg/actuation HFA aerosol inhaler (Flovent HFA) empagliflozin 10 mg tablet 10 mg PO QAM 02/09/22 03/08/22 03/08/22 History (Jardiance) dulaglutide 1.5 mg/0.5 mL mg subcut QWEEK 09/28/22 Unknown History subcutaneous pen injector (Trulicity) Exam Exam Date and Time: October 04, 2022 1449 Height,Weight and Vital Signs: Height 5 ft 4 in Weight 102.058 kg Assessment and Plan Assessment Anesthesia Assessment: Chart Reviewed Final Anesthetic Review Family History of Problems with Anesthesia: No History of Problems with Anesthesia: No Documented by User: Nicole Mary MD 10/05/22 08:22 [facility] Past Medical History Medical History CAD (coronary artery disease) Chronic idiopathic constipation Diabetes Elevated PSA Family history of prostate cancer Myocardial infarct, old PVD (peripheral vascular disease) Scrotal swelling Tubular adenoma Family History Family History Maternal Grandmother Diabetes Paternal Grandmother Diabetes Brother Diabetes Mother No problems noted. Father Diabetes Surgical History Surgical History History of cardiac cath History of esophagogastroduodenoscopy (EGD) History of surgery History of vascular surgery Hx of arthroscopic knee surgery Hx of colonoscopy Hx of ligation of vein Social History Social History Alcohol intake: never Patient Tobacco Use Status: Former Tobacco user Quit Date: 2014 Years Smoked: 35+ Use of substances other than those prescribed or required for medical reasons: No Are you DNR?: No Advance Directives: No Advance Directives Information Provided: Yes Recently lost weight without trying: Yes How much weight loss: 2-13 pounds Nutrition Risks: No Nutritional Risk Poor oral hygiene: No Current occupational status: disabled Current occupation: right hand dominant Meds Allergies Allergy/AdvReac Type Severity Reaction Status Date / Time No Known Allergies Allergy Verified 09/28/22 10:30 Home Medications Medication Instructions Recorded Confirmed Last Taken Type acetaminophen 500 mg capsule 500 mg PO Q6H PRN Pain 11/11/20 03/08/22 03/08/22 History albuterol sulfate 2.5 mg/0.5 mL 5 mg inhalation Q4H 11/11/20 03/08/22 08/16/21 History solution for nebulization amlodipine 10 mg tablet (Norvasc) 10 mg PO DAILY 11/11/20 03/08/22 03/08/22 History aspirin 81 mg tablet,delayed 81 mg PO DAILY 11/11/20 03/08/22 03/08/22 History release (Adult Low Dose Aspirin) atorvastatin 80 mg tablet 80 mg PO DAILY 11/11/20 03/08/22 03/08/22 History blood sugar diagnostic (Caleb #10 ea 11/11/20 06/22/21 Unknown History Lite Strips) cilostazol 100 mg tablet 100 mg PO BID 11/11/20 03/08/22 03/08/22 History clopidogrel 75 mg tablet (Plavix) 75 mg PO DAILY 11/11/20 03/08/22 03/08/22 History glucose 4 gram chewable tablet 4 g PO Q15M PRN Hypoglycemia 11/11/20 03/08/22 Unknown History (Dex4 Glucose) insulin NPH isoph U-100 human 100 20 unit subcut QAM 11/11/20 03/08/22 03/08/22 History unit/mL (3 mL) subcutaneous pen (Novolin N FlexPen) insulin glargine 100 unit/mL (3 10 unit subcut QPM 11/11/20 03/08/22 Unknown History mL) subcutaneous pen (Lantus Solostar U-100 Insulin) isosorbide mononitrate 60 mg 60 mg PO QAM 11/11/20 03/08/22 03/08/22 History tablet,extended release 24 hr risperidone 1 mg/mL oral solution 2 mg PO BEDTIME 11/11/20 03/08/22 Unknown History tramadol 50 mg tablet 50 mg PO TID PRN Pain 11/11/20 08/12/21 Unknown History carvedilol 6.25 mg tablet 6.25 mg PO BID 07/12/21 03/08/22 03/08/22 History cholecalciferol (vitamin D3) 25 25 mcg PO QAM 07/12/21 03/08/22 03/08/22 History mcg (1,000 unit) tablet gabapentin 300 mg capsule 100 mg PO TID 07/12/21 03/08/22 03/08/22 History insulin aspart U-100 100 unit/mL subcut 07/12/21 Unknown History (3 mL) subcutaneous pen (Novolog FlexPen U-100 Insulin aspart) lancets 28 gauge (TRUEplus Lancets) #100 ea 07/12/21 Unknown History lisinopril 40 mg tablet 40 mg PO QAM 07/12/21 03/08/22 03/08/22 History pen needle, diabetic 32 gauge x #50 ea 07/12/21 Unknown History (Pentips) risperidone 3 mg tablet 3 mg PO BEDTIME 07/12/21 03/08/22 Unknown History fluticasone propionate 110 2 puff inhalation BID 08/31/21 03/08/22 Unknown History mcg/actuation HFA aerosol inhaler (Flovent HFA) empagliflozin 10 mg tablet 10 mg PO QAM 02/09/22 03/08/22 03/08/22 History (Jardiance) dulaglutide 1.5 mg/0.5 mL mg subcut QWEEK 09/28/22 Unknown History subcutaneous pen injector (Trulicity) Exam Airway Mallampati Class: III TM Dist: >3cm Neck ROM: Full Heart: rr Lungs: cts Assessment and Plan Final Anesthetic Review ASA Class: II Final Preanesthetic Review: No Changes in Pt Med Stat, Meds/Allgs Chart Reviewed, Consent Obtained/Reviewed and Anes Risks/Benef Reviewed Patient Risk: Intermediate Procedure Risk: Low Anesthetic Plan Anesthetic Plan: MAC: Disposition: Standard PACU
[2022-10-05 07:50] VITALS: BP 141/76; PULSE 82; RESP 18; TEMP 36.6; O2SAT 96; BMI 38.8
[2022-10-05 07:50] LABS: Glucose, Whole Blood 144 mg/dL (60-115)
[2022-10-05] MEDS: Lactated Ringers 1,000 ML 50 ML IVCONT (08:00)
--- NOTE | 2022-10-05 08:31 | MHC.SHP ---
Pre-Procedural Eval Section A Date of Service: 10/05/22 Section B Chief Complaint: Chronic idiopathic constipation, reflux Relevant Family History (Specify if Yes): No Relevant Social History: None Present Medications: see Short Stay Collaborative assessment Medical History: Significant History (CAD (coronary artery disease) Chronic idiopathic constipation Diabetes Elevated PSA Family history of prostate cancer Myocardial infarct, old PVD (peripheral vascular disease) Scrotal swelling Tubular adenoma) History of Previous Operations: Relevant previous surgery/procedure and date(s) (History of cardiac cath History of esophagogastroduodenoscopy (EGD) History of surgery History of vascular surgery Hx of arthroscopic knee surgery Hx of colonoscopy Hx of ligation of vein) Allergies: Allergies Allergy/AdvReac Type Severity Reaction Status Date / Time No Known Allergies Allergy Verified 09/28/22 10:30 Review of Systems Sugical H&P ROS: Negative: Constitution, Cardiovascular, Respiratory, Neurological, Psychiatric, Hem-Onc, Allergic/Immunologic, Gastrointestinal, Genitourinary, Musculoskeletal, Integumentary, Endocrine and Eyes/Ears/Nose/Throat Exam Surgical H&P Exam: Normal: HEENT, Normal: Heart, Normal: Lungs, Normal: Extremities, Normal: Abdomen, Normal: Skin and Normal: Neurological Plan Diagnosis/Plan: Unchanged I have reviewed the history and physical and performed a pertinent physical examination on my patient. No changes have occurred unless specified. Time Spent With Patient Time: Total time managing care of this patient today ____ minutes.
--- NOTE | 2022-10-05 08:32 | W.PM.OPN ---
Operative Note Operative Note Date of Service: 10/05/22 Narrative: Operative Information Procedure Description: EGD, Colonoscopy Indication: GERD, colon screen Anesthesia: MAC FLEXIBLE TRANSORAL UPPER GASTROINTESTINAL ENDOSCOPY AND COLONOSCOPY PROCEDURE NOTE UPPER ENDOSCOPY Consent: Indications for the procedure and potential complications of bleeding, perforation, reaction to medications and missed diagnosis were discussed with the patient and informed consent was obtained. Instrument: Olympus GIF H 190 J mid size upper endoscope Monitoring: Vital signs and clinical assessment, continuous EKG monitoring, Pulse oximetry, Carbon Dioxide monitoring and blood pressure monitoring were done throughout the procedure. Procedure: The patient was placed in the left lateral decubitis position and pre-procedure medications were administered and a bite block was placed. The endoscope was inserted into the mouth and advanced under direct vision to the third part of duodenum. A careful inspection was made as the upper endoscope was withdrawn including a retroflexed examination of the proximal stomach; Findings and interventions are described below. Findings: Larynx:normal Esophagus: GE junction at 40 cm, diaphragm hiatus at 40 cm, normal mucosa Stomach: Patchy erythema but limited exam due to large amount of food in stomach. Biopsies were obtained. retroflexion not done Duodenum: Normal bulb and descending duodenum, Intervention: Biopsies as noted above COLONOSCOPY Instrument: Olympus variable stiffness Adult scope 190L Colonoscopy Monitoring: Vital signs and clinical assessment, continuous EKG monitoring, Pulse oximetry, Carbon Dioxide monitoring and blood pressure monitoring were done throughout the procedure. Colon withdrawal time was 5 minutes. Procedure: The patient was placed in the left lateral decubitis position and pre-procedure medications were administered. After a digital rectal examination of the ano-rectum, the video colonoscope was inserted into the rectum and advanced through the colon to the cecum/TI. The colonoscope was slowly withdrawn in a retrograde panoramic fashion and the colon mucosa was carefully examined including a retroflexed view of the rectum. Findings and interventions are described below. Procedure Difficulty:easy Findings: Terminal Ileum-unable to see Cecum: unable to see, partial view normal Ascending Colon: normal Transverse Colon -normal Descending Colon:normal Sigmoid Colon: normal Rectum: Retroflexion with small internal hemorrhoids, grade I Anorectum - normal Colon preparation: [place] Bowel Preparation Scale Right colon; 0-1 Transverse colon: 2 Left colon; 1-2 (0 = Unprepared colon segment with mucosa not seen due to solid stool that cannot be cleared. 1 = Portion of mucosa of the colon segment seen, but other areas of the colon segment not well seen due to staining, residual stool and/or opaque liquid. 2 = Minor amount of residual staining, small fragments of stool and/or opaque liquid, but mucosa of colon segment seen well. 3 = Entire mucosa of colon segment seen well with no residual staining, small fragments of stool or opaque liquid) Impression and Post Procedure Diagnosis: Endoscopy Findings: possible gastroparesis gastritis Colonoscopy Findings: poor prep johnathon right side internal hemorrhoids Plan: Await Pathology results Repeat Colonoscopy in -6-12 months or earlier if clinically indicated, [id number] time 2 d of clears High fiber diet leaflet avoid straining at stool, epsom salts and sitz bath, anusol supps or cream consider getting GES Above findings were reviewed with the patient and relevant handouts were provided if indicated.
[2022-10-05 09:14] VITALS: BP 84/34; PULSE 77; RESP 16; TEMP 36.4; O2SAT 95
[2022-10-05 09:29] VITALS: BP 145/80; PULSE 74; RESP 16; TEMP 36.4; O2SAT 96
== END 2022-10-05 10:03 | disposition home or self-care (01) ==
PROVIDERS: PCP Internal Medicine; Visit Provider Internal Medicine Gastroenterology
PROC: (CPT 45378; principal; 2022-10-05 09:20)
DX: Z12.11 Encounter for screening for malignant neoplasm of colon (principal); K64.0 First degree hemorrhoids; K58.2 Mixed irritable bowel syndrome; K59.04 Chronic idiopathic constipation; K29.50 Unspecified chronic gastritis without bleeding; K21.9 Gastro-esophageal reflux disease without esophagitis; K44.9 Diaphragmatic hernia without obstruction or gangrene; I25.10 Atherosclerotic heart disease of native coronary artery without angina pectoris; I25.2 Old myocardial infarction; I73.9 Peripheral vascular disease, unspecified; E11.9 Type 2 diabetes mellitus without complications; R97.20 Elevated prostate specific antigen [PSA]; Z79.4 Long term (current) use of insulin; Z79.82 Long term (current) use of aspirin; Z79.899 Other long term (current) drug therapy; Z87.891 Personal history of nicotine dependence; Z98.890 Other specified postprocedural states
CPT/HCPCS: 45378; 43239; 82947; 88305; 88342

== ENCOUNTER → 2022-10-10 09:03 | Outpatient (BNVA) | payer MEDICAID, SELFPAY | PROVIDERS: PCP Internal Medicine; Visit Provider Surgery Vascular Surgery | DX: I73.9 Peripheral vascular disease, unspecified (principal); I25.10 Atherosclerotic heart disease of native coronary artery without angina pectoris; I25.2 Old myocardial infarction; E66.01 Morbid (severe) obesity due to excess calories; Z68.38 Body mass index [BMI] 38.0-38.9, adult; Z87.891 Personal history of nicotine dependence; Z79.82 Long term (current) use of aspirin; Z79.899 Other long term (current) drug therapy | CPT/HCPCS: 99212 ==

== ENCOUNTER → 2022-10-17 10:14 | Outpatient (BNVA) | payer MEDICAID, SELFPAY | PROVIDERS: PCP Internal Medicine; Visit Provider Nurse Practitioner Family | DX: K59.04 Chronic idiopathic constipation (principal); K58.1 Irritable bowel syndrome with constipation; K29.50 Unspecified chronic gastritis without bleeding; K21.9 Gastro-esophageal reflux disease without esophagitis; D12.6 Benign neoplasm of colon, unspecified; Z98.890 Other specified postprocedural states | CPT/HCPCS: 99212 ==

== ENCOUNTER → 2022-11-08 07:33 | Outpatient (REF) | payer MEDICAID, SELFPAY ==
--- NOTE | ~2022-11-08 | NM_ITS ---
PROCEDURE: NM RADIONUCLIDE SOLID FOOD GASTRIC EMPTYING 4-HOUR STUDY CLINICAL INFORMATION: GE reflux. COMPARISON: None available. TECHNIQUE: A standard meal consisting of 4 oz of Egg Beaters brand tagged with 1 microcuries Tc-99m Sulfur Colloid, 6 oz water and 2 slices of toast with jelly was administered orally to the patient. Images were obtained using a dual head gamma camera in the anterior and posterior projections over of the stomach immediately post ingestion and at hourly intervals up to 4 hours post ingestion. The anterior and posterior counts at each time interval were averaged using the geometric mean and expressed as percentage of the immediate post ingestion counts. FINDINGS: There is good visualization of activity in the stomach immediately post ingestion. As the study progresses, there is good clearance of activity from the stomach and visualization of progressively increasing small bowel activity. By the end of the study, there is almost no retention noted in the stomach. Retention in the stomach at each time interval was: 1 hour 106% (normal 37%-90%) 2 hours 106% (normal 30%-60%) 3 hours 106% 4 hours 106% (normal 0%-10%) NM/NM gastric emptying study IMPRESSION: Abnormal 4-hour solid food gastric emptying study.
== END ==
LOC: HO.NUCMED 07:33
PROVIDERS: PCP Internal Medicine; Visit Provider Nurse Practitioner Family
DX: K21.9 Gastro-esophageal reflux disease without esophagitis (principal)
CPT/HCPCS: 78264; A9541

== ENCOUNTER → 2022-11-09 08:30 | Outpatient (BNVA) | payer MEDICAID, SELFPAY | PROVIDERS: PCP Internal Medicine; Visit Provider Physician Assistant | DX: M75.101 Unspecified rotator cuff tear or rupture of right shoulder, not specified as traumatic (principal); I73.9 Peripheral vascular disease, unspecified; I25.10 Atherosclerotic heart disease of native coronary artery without angina pectoris | CPT/HCPCS: 99212 ==

== ENCOUNTER 2022-12-05 10:30 | Outpatient (AMB) | payer MEDICAID, SELFPAY ==
[2022-12-05 11:02] VITALS: BP 143/73; PULSE 98; O2SAT 96; BMI 36.0
--- NOTE | 2022-12-05 11:02 | MHC.OFFVIS ---
Intake Vital Signs 12/05/22 11:02 Height 5 ft 4 in Weight 209 lb 8 oz BMI 36.0 BP 143/73 H Blood Pressure Location Lt brachial Position Sitting Pulse 98 Pulse Source Pulse Oximeter Pulse Oximetry (%) 96 Oxygen Delivery Method Room Air Intake Visit Reasons: Painful arc syndrome of right shoulder Hvac Engineer Required: Yes Hvac Engineer Language: Systems Test Technician Name: ernestina #[id number] Allergies No Known Allergies Allergy (Verified 12/05/22 11:04) HPI Painful arc syndrome of right shoulder HPI Details Patient is a pleasant 62 years old [place] African speaking male with history of CAD, diabetes, old [place], chronic right shoulder pain and PVD, presents today for initial evaluation for right shoulder pain. He reports having pain in his right shoulder for about 5 years now. Denies any recent injury, trauma, or falls. Pain is most severe with overhead activities and at night. He cannot sleep on his right side. Patient has been getting cortisone injections and PT in the past with mild relief but no relief with most recent shoulder cortisone injection on 09/28/22. He is interested to undergo diagnostic nerve blocks for potential Sprint PNS trial. However, if Sprint trial is not effective in managing his pain, he is willing to undergo surgical option. Per Orthopedics, patient is not a good candidate for surgery due to diabetes with CAD and PVD on Plavix. Right shoulder xray and MRI imaging are noted below. Location Right anterior shoulder Duration Chronic pain for ~5 years, progressively getting worse over the past year Characteristics of symptom or complaint Dull, sore, hurting, aching, heavy, spreading, radiating, piercing Aggravating or associated factors Movements, overhead reaches Relieving factors Tramadol, Cymbalta, acetaminophen, celebrex Treatment Physical therapy, cortisone injections- last one 2 months ago. [facility] Medical History CAD (coronary artery disease) Chronic idiopathic constipation Diabetes Elevated PSA Family history of prostate cancer Myocardial infarct, old Painful arc syndrome of right shoulder PVD (peripheral vascular disease) Scrotal swelling Tubular adenoma Surgical History History of cardiac cath History of esophagogastroduodenoscopy (EGD) History of surgery History of vascular surgery Hx of arthroscopic knee surgery Hx of colonoscopy Hx of ligation of vein Family History Maternal Grandmother Diabetes Paternal Grandmother Diabetes Brother Diabetes Mother No problems noted. Father Diabetes Social History Alcohol intake: never Patient Tobacco Use Status: Former Tobacco user Quit Date: 2014 Years Smoked: 35+ Current occupational status: disabled Current occupation: right hand dominant Review of Systems Const All systems reviewed & are unremarkable except as noted in HPI and below Reports as per HPI, Denies body aches, Denies chills, Reports difficulty sleeping, Reports fatigue, Denies fever(s), Denies malaise, Reports weakness and Denies weight loss ENT Denies neck pain Musc Reports as per HPI, Reports arthralgias, Reports limited range of motion, Denies neck pain, Reports radiating pain into limb, Reports stiffness and Reports tingling Neuro Reports tingling and Reports weakness Endo Reports fatigue Physical Exam Vital Signs: Last Vital Signs Pulse 98 12/05/22 11:02 BP 143/73 H 12/05/22 11:02 Pulse Ox 96 12/05/22 11:02 Oxygen Delivery Method Room Air 12/05/22 11:02 BMI result Body Mass Index 36.0 General: Appears afebrile. Alert and oriented. Mood and affect appropriate. Follows and participates in conversation appropriately. Respiratory effort is unlabored. No cough. Able to transition from sit to stand unassisted. Ambulates with bilaterally normal heel strike and toe off. Extrem Other: Right Shoulders: Normal to inspection. No erythema or ecchymosis. Limited ROM due to pain. Patient has difficulty with overhead reach. Able to reach his back pocket but with pain. Significant tenderness to palpation to the anterior aspect of the right shoulder and lateral upper arm. Muscle tenderness in right trapezius and cervical paraspinals on the right. +Encarnacion test on the right. General: Yes capillary refill normal and Yes no clubbing, cyanosis or edema Results Reviewed Results Reviewed: MR SHOULDER WITHOUT CONTRAST, RIGHT 08/28/22 CLINICAL INFORMATION: Shoulder pain COMPARISON: X-ray 08/14/2022 FINDINGS: ROTATOR CUFF: Mild-moderate supraspinatus tendinosis. Moderate infraspinatus tendinosis. 0.8 x 1.2 cm. (AP x ML) intrasubstance partial tear in the proximal anterior fibers. Teres minor is intact. Moderate subscapularis tendinosis. No muscle atrophy or fatty infiltration. BICEPS: Question mild proximal biceps tendinosis. CORACOACROMIAL ARCH: The undersurface of the acromion is curved with no subacromial spur. Moderate acromioclavicular arthritis. Trace edema/fluid in the subacromial subdeltoid space. LABRUM/CAPSULE: Posterosuperior labral degenerative fraying. Superior labral degeneration, with fraying of its posterior aspect. GLENOHUMERAL JOINT/MARROW: Greater tuberosity subcortical cysts. No fracture. Small joint effusion. IMPRESSION: 1. Mild-moderate supraspinatus tendinosis. 2. Moderate infraspinatus tendinosis. 0.8 x 1.2 cm intrasubstance partial tear. 3. Moderate subscapularis tendinosis. 4. Question mild proximal biceps tendinosis. 5. Posterosuperior labral degenerative fraying. Superior labral degenerative fraying. 6. Moderate acromioclavicular arthritis. 7. Small glenohumeral joint effusion. XR SHOULDER, LEFT 08/02/22 CLINICAL INFORMATION: Pain left shoulder FINDINGS: The bones and soft tissues are normal. No fracture. Glenohumeral and acromioclavicular alignment is anatomic with normal joint space. No abnormal soft tissue calcifications. IMPRESSION: Unremarkable left shoulder. XR SHOULDER, RIGHT 06/19/22 FINDINGS/IMPRESSION: No acute fracture or dislocation. There is mild elevation of the right humeral head relative to glenoid fossa which may reflect underlying rotator cuff pathology. Assessment & Plan Assessment & Plan (1) Painful arc syndrome of right shoulder: Code(s): M75.101 - Unspecified rotator cuff tear or rupture of right shoulder, not specified as traumatic (2) Injury of right rotator cuff: Code(s): S46.001A - Unspecified injury of muscle(s) and tendon(s) of the rotator cuff of right shoulder, initial encounter (3) Chronic right shoulder pain: Code(s): M25.511 - Pain in right shoulder; G89.29 - Other chronic pain (4) Tendinosis of right shoulder: Code(s): M67.813 - Other specified disorders of tendon, right shoulder Plan 1. Schedule Right diagnostic suprascapular nerve block with local and fluoroscopy for chronic right shoulder pain and potential Sprint PNS trial. We also discussed fluoroscopy guided intra-articular steroid injections and RFA procedure. Informational pamphlets provided to patient. Script sent for diclofenac topical gel today for localized tenderness and pain. All questions and concerns have been answered and patient agreed with the plan. Follow up after injections and sooner if needed. Anticoagulation: Patient on anticoagulation (Plavix) and instructions given on when to pause with prescribing physician permission. Justification for interventional therapy: ? Patient with average pain > 6/10 ? Patient has exhausted conservative therapy, NSAIDs, physical therapy ? Corticosteroid injections have not been helpful The risks, consequences, alternatives, and benefits of various treatment options were discussed with the patient in great detail, including conservative management, injections and procedures. Medications: New diclofenac sodium 1% (Arthritis Pain (diclofenac)) 4 grams topical QID 100 grams 0RF pain G89.29 - Other chronic pain, M25.511 - Pain in right shoulder, M67.813 - Other specified disorders of tendon, right shoulder, M75.101 - Unspecified rotator cuff tear or rupture of right shoulder, not specified as traumatic Coding Level of Care Code New Pt Level 4 (58325) Diagnoses Painful arc syndrome of right shoulder M75.101 Injury of right rotator cuff S46.001A Chronic right shoulder pain M25.511; G89.29 Tendinosis of right shoulder M67.813
== END 2022-12-05 11:41 | disposition home or self-care (01) ==
PROVIDERS: PCP Internal Medicine; Visit Provider Nurse Practitioner Family
DX: M75.101 Unspecified rotator cuff tear or rupture of right shoulder, not specified as traumatic (principal); S46.001A Unspecified injury of muscle(s) and tendon(s) of the rotator cuff of right shoulder, initial encounter; M25.511 Pain in right shoulder; G89.29 Other chronic pain; M67.813 Other specified disorders of tendon, right shoulder
CPT/HCPCS: 99204

== ENCOUNTER → 2022-12-05 10:30 | Outpatient (BNVA) | payer MEDICAID, SELFPAY | PROVIDERS: PCP Internal Medicine; Visit Provider Nurse Practitioner Family | DX: M75.101 Unspecified rotator cuff tear or rupture of right shoulder, not specified as traumatic (principal); M25.511 Pain in right shoulder; M67.813 Other specified disorders of tendon, right shoulder | CPT/HCPCS: 99204 ==

== ENCOUNTER 2022-12-22 09:17 | Outpatient (AMB) | payer MEDICAID, SELFPAY ==
--- NOTE | 2022-12-22 09:32 | A.OFFVIS_ITS ---
Intake Vital Signs 12/22/22 09:33 Height 5 ft 4 in Weight 209 lb BMI 35.9 BP 121/64 Blood Pressure Location Rt brachial Position Sitting Respiration 15 Pulse 82 Pulse Source Pulse Oximeter Intake Visit Reasons: RIGHT DIAGNOSTIC SUPRASCAPULAR NERVE BLOCK Allergies No Known Allergies Allergy (Verified 12/05/22 11:04) HPI RIGHT DIAGNOSTIC SUPRASCAPULAR NERVE BLOCK HPI Details 62-year-old male presenting today for a right diagnostic suprascapular nerve block. A certified library serials assistant was present during the visit. The patient was referred by Dr. Sandra MELENDEZ for right diagnostic suprascapular nerve block. Patient presents for scheduled procedure. Denies any recent cough, cold, infection, fever or other significant changes in medical history since last office visit. PENDING SALE TO [facility] Medical History CAD (coronary artery disease) Chronic idiopathic constipation Diabetes Elevated PSA Family history of prostate cancer Myocardial infarct, old Painful arc syndrome of right shoulder PVD (peripheral vascular disease) Scrotal swelling Tubular adenoma Surgical History History of cardiac cath History of esophagogastroduodenoscopy (EGD) History of surgery History of vascular surgery Hx of arthroscopic knee surgery Hx of colonoscopy Hx of ligation of vein Family History Maternal Grandmother Diabetes Paternal Grandmother Diabetes Brother Diabetes Mother No problems noted. Father Diabetes Social History Alcohol intake: never Patient Tobacco Use Status: Former Tobacco user Quit Date: 2014 Years Smoked: 35+ Current occupational status: disabled Current occupation: right hand dominant Review of Systems Const All systems reviewed & are unremarkable except as noted in HPI and below Physical Exam Vital Signs: Last Vital Signs Pulse 82 12/22/22 09:33 Resp 15 12/22/22 09:33 BP 121/64 12/22/22 09:33 BMI result Body Mass Index 35.9 General: Appears afebrile. Alert and oriented. Mood and affect appropriate. Follows and participates in conversation appropriately. Respiratory effort is unlabored. Able to transition from sit to stand unassisted. Ambulates with bilaterally normal heel strike and toe off. Office Procedures Nerve Block Details: Diagnostic suprascapular nerve block, Right - Ultrasound Guided After obtaining written consent, pre-procedure blood pressure and heart rate were stable and recorded in the nursing record. The patient was placed in the sitting position. The suprascapular area was widely prepped with chloraprep and allowed to dry. Using ultrasound, the suprascapular notch and ligament were identified. The skin overlying the target was anesthetized with 0.5% lidocaine. A 22 gauge 80 mm Echostim needle was advanced under ultrasound guidance to the suprascapular notch. Care was taken not to puncture the suprascapular artery. Aspiration was negative for heme and air. 2 cc of ropivacaine 0.5% was injected in the suprascapular notch. The needle was removed, skin cleansed and a sterile bandage was applied. The patient tolerated the procedure well and no complications were encountered. Following the procedure the patient's vital signs were stable. The patient was discharged home in good condition with post-procedural instructions. Time Out: Immediately prior to the procedure, the following was verbally confirmed that there is a signed consent form and that the correct patient, planned procedure, site and side are consistent with documentation and that necessary equipment and/or blood products are available prior to the start of the case. Complications: none EBL: <5 cc 79146 - Suprascapular (Right) Procedure code (CPT) selection complete Results Reviewed Results Reviewed: No imaging is available for review. Assessment & Plan Assessment & Plan (1) Painful arc syndrome of right shoulder: Code(s): M75.101 - Unspecified rotator cuff tear or rupture of right shoulder, not specified as traumatic (2) Chronic right shoulder pain: Code(s): M25.511 - Pain in right shoulder; G89.29 - Other chronic pain Plan Patient is status post right diagnostic suprascapular nerve block. Patient tolerated procedure well and was discharged home in stable condition with discharge instructions. All questions were answered. We will follow-up in two weeks via telephone or in clinic to assess response to therapy. A follow-up appointment was made during today's visit. Scribed for Dr. Nicholas by Ry Puckett, chief medical officer, on 12/22/2022. I, Dr. Nicholas, have personally reviewed and agree with the information entered by the scribe. Coding Level of Care Code Procedure Only Diagnoses Painful arc syndrome of right shoulder M75.101 Chronic right shoulder pain M25.511; G89.29 CPT Codes Nerve Block - Nerve Block 4: 50937 - Suprascapular ([id number])
[2022-12-22 09:33] VITALS: BP 121/64; PULSE 82; RESP 15; BMI 35.9
== END 2022-12-22 09:52 | disposition home or self-care (01) ==
PROVIDERS: PCP Internal Medicine; Visit Provider Internal Medicine
DX: M75.101 Unspecified rotator cuff tear or rupture of right shoulder, not specified as traumatic (principal); M25.511 Pain in right shoulder; G89.29 Other chronic pain
CPT/HCPCS: 64418; 76942

== ENCOUNTER → 2022-12-22 09:17 | Outpatient (BNVA) | payer MEDICAID, SELFPAY | PROVIDERS: PCP Internal Medicine; Visit Provider Internal Medicine | DX: M75.101 Unspecified rotator cuff tear or rupture of right shoulder, not specified as traumatic (principal); M25.511 Pain in right shoulder; G89.29 Other chronic pain | CPT/HCPCS: 64418 ==

== ENCOUNTER 2022-12-29 13:07 | Outpatient (AMB) | payer MEDICAID, SELFPAY ==
[2022-12-29 13:22] VITALS: BP 133/73; PULSE 73; O2SAT 96; BMI 36.1
--- NOTE | 2022-12-29 13:22 | MHC.OFFVIS ---
Intake Vital Signs 12/29/22 13:22 Height 5 ft 4 in Weight 210 lb 4 oz BMI 36.1 BP 133/73 Blood Pressure Location Rt brachial Position Sitting Pulse 73 Pulse Source Pulse Oximeter Pulse Oximetry (%) 96 Oxygen Delivery Method Room Air Intake Visit Reasons: FOLLOW UP AFTER INJECTION Intake Note: Pain today 03/06 Arboriculture Instructor Required: Yes Arboriculture Instructor Language: Clarity Specialists Name: puma #[id number] Accompanied by: Self / Same As Patient Allergies No Known Allergies Allergy (Verified 12/29/22 13:23) HPI HPI Comments History of Present Illness Details Patient presents Right Diagnostic Suprascapular nerve block on 12/22/22 Dr. Nicholas. Patient reports less than 10% pain relief for one day in his chronic right shoulder pain without any improvement in his functioning, ADLs, range of motion or sleep. Unfortunately, patient is not a candidate for a Sprint trial. He is not willing to undergo a repeat diagnostic medial branch block injections in order to establish reproducible response to treatment. Patient will be referred back to Orthopedics for further evaluation. Denies any recent cough, cold, infection, fever or other significant changes in medical history since last office visit. Past Procedures: 12/22/22: Right Diagnostic Suprascapular nerve block-10% for <24 hours PRIOR: Patient is a pleasant 62 years old Telugu speaking male with history of CAD, diabetes, old [place], chronic right shoulder pain and PVD, presents today for initial evaluation for right shoulder pain. He reports having pain in his right shoulder for about 5 years now. Denies any recent injury, trauma, or falls. Pain is most severe with overhead activities and at night. He cannot sleep on his right side. Patient has been getting cortisone injections and PT in the past with mild relief but no relief with most recent shoulder cortisone injection on 09/28/22. He is interested to undergo diagnostic nerve blocks for potential Sprint PNS trial. However, if Sprint trial is not effective in managing his pain, he is willing to undergo surgical option. Per Orthopedics, patient is not a good candidate for surgery due to diabetes with CAD and PVD on Plavix. Right shoulder xray and MRI imaging are noted below. Location Right anterior shoulder Duration Chronic pain for ~5 years, progressively getting worse over the past year Characteristics of symptom or complaint Dull, sore, hurting, aching, heavy, spreading, radiating, piercing Aggravating or associated factors Movements, overhead reaches Relieving factors Tramadol, Cymbalta, acetaminophen, celebrex Treatment Physical therapy, cortisone injections- last one 2 months ago. [facility] Medical History CAD (coronary artery disease) Chronic idiopathic constipation Diabetes Elevated PSA Family history of prostate cancer Myocardial infarct, old Painful arc syndrome of right shoulder PVD (peripheral vascular disease) Scrotal swelling Tubular adenoma Surgical History History of cardiac cath History of esophagogastroduodenoscopy (EGD) History of surgery History of vascular surgery Hx of arthroscopic knee surgery Hx of colonoscopy Hx of ligation of vein Family History Maternal Grandmother Diabetes Paternal Grandmother Diabetes Brother Diabetes Mother No problems noted. Father Diabetes Social History Alcohol intake: never Patient Tobacco Use Status: Former Tobacco user Quit Date: 2014 Years Smoked: 35+ Current occupational status: disabled Current occupation: right hand dominant Review of Systems Const All systems reviewed & are unremarkable except as noted in HPI and below Physical Exam Vital Signs: Last Vital Signs Pulse 73 12/29/22 13:22 BP 133/73 12/29/22 13:22 Pulse Ox 96 12/29/22 13:22 Oxygen Delivery Method Room Air 12/29/22 13:22 BMI result Body Mass Index 36.1 General: Appears afebrile. Alert and oriented. Mood and affect appropriate. Follows and participates in conversation appropriately. Respiratory effort is unlabored. No cough. Able to transition from sit to stand unassisted. Ambulates with bilaterally normal heel strike and toe off. Extrem Other: Right Shoulders: Normal to inspection. No erythema or ecchymosis. Patient has difficulty with overhead reaches due to pain. Able to reach his back pocket but with significant pain. Significant tenderness to palpation to the anterior aspect of the right shoulder and lateral upper arm. Assessment & Plan Assessment & Plan (1) Painful arc syndrome of right shoulder: Code(s): M75.101 - Unspecified rotator cuff tear or rupture of right shoulder, not specified as traumatic (2) Chronic right shoulder pain: Code(s): M25.511 - Pain in right shoulder; G89.29 - Other chronic pain Plan Patient is status post right diagnostic suprascapular nerve block with only 10% pain relief for <24 hours. Unfortunately, patient is not a candidate for a Sprint trial. He is not willing to undergo a repeat diagnostic medial branch block injections in order to establish reproducible response to treatment. Patient will be referred back to Orthopedics for further evaluation. Follow up as needed. Coding Level of Care Code Est Pt Level 3 (09333) Diagnoses Painful arc syndrome of right shoulder M75.101 Chronic right shoulder pain M25.511; G89.29
== END 2022-12-29 13:56 | disposition home or self-care (01) ==
PROVIDERS: PCP Internal Medicine; Visit Provider Nurse Practitioner Family
DX: M75.101 Unspecified rotator cuff tear or rupture of right shoulder, not specified as traumatic (principal); M25.511 Pain in right shoulder; G89.29 Other chronic pain
CPT/HCPCS: 99213

== ENCOUNTER → 2022-12-29 13:07 | Outpatient (BNVA) | payer MEDICAID, SELFPAY | PROVIDERS: PCP Internal Medicine; Visit Provider Nurse Practitioner Family | DX: M75.101 Unspecified rotator cuff tear or rupture of right shoulder, not specified as traumatic (principal); M25.511 Pain in right shoulder; G89.29 Other chronic pain | CPT/HCPCS: 99213 ==

== ENCOUNTER 2023-01-05 20:28 | Emergency (ER) | payer MEDICAID, SELFPAY ==
--- NOTE | 2023-01-05 20:32 | ED_ITS ---
HPI - General Adult General Chief complaint: General Medical Stated complaint: low sugar Time Seen by Provider: 01/05/23 21:07 Source: patient Mode of arrival: ambulatory Limitations: no limitations History of Present Illness HPI narrative: Patient comes to the emergency room complaining of multiple episodes of hyp oglycemia. Patient states that he has a monitor in his arm, when it drops to 70 it starts beeping. Patient states that sometimes his glucose drops to 50. Patient eats and drinks something immediately or ingest glucose tablets and then his glucose starts slowly coming back up. Patient states that when his glucose is no, he feels lightheaded. At this time, patient is asymptomatic. Patient states that he was discontinued off all his medications, patient used to take Lantus, Jardiance, which all were discontinued due to multiple episodes of hypoglycemia. At this time, patient is only taking Mounjaro (tirzepatide) weekly which he injected yesterday. Patient states that he has never lost c onsciousness. Related Data Home Medications Medication Instructions Recorded Confirmed acetaminophen 500 mg capsule 500 mg PO Q6H PRN Pain 11/11/20 03/08/22 albuterol sulfate 2.5 mg/0.5 mL 5 mg inhalation Q4H 11/11/20 03/08/22 solution for nebulization amlodipine 10 mg tablet (Norvasc) 10 mg PO DAILY 11/11/20 03/08/22 aspirin 81 mg tablet,delayed 81 mg PO DAILY 11/11/20 03/08/22 release (Adult Low Dose Aspirin) atorvastatin 80 mg tablet 80 mg PO DAILY 11/11/20 03/08/22 blood sugar diagnostic (FreeStyle #10 ea 11/11/20 06/22/21 Lite Strips) cilostazol 100 mg tablet 100 mg PO BID 11/11/20 03/08/22 clopidogrel 75 mg tablet (Plavix) 75 mg PO DAILY 11/11/20 03/08/22 glucose 4 gram chewable tablet 4 g PO Q15M PRN Hypoglycemia 11/11/20 03/08/22 (Dex4 Glucose) insulin NPH isoph U-100 human 100 20 unit subcut QAM 11/11/20 03/08/22 unit/mL (3 mL) subcutaneous pen (Novolin N FlexPen) insulin glargine 100 unit/mL (3 10 unit subcut QPM 11/11/20 03/08/22 mL) subcutaneous pen (Lantus Solostar U-100 Insulin) isosorbide mononitrate 60 mg 60 mg PO QAM 11/11/20 03/08/22 tablet,extended release 24 hr risperidone 1 mg/mL oral solution 2 mg PO BEDTIME 11/11/20 03/08/22 tramadol 50 mg tablet 50 mg PO TID PRN Pain 11/11/20 08/12/21 carvedilol 6.25 mg tablet 6.25 mg PO BID 07/12/21 03/08/22 cholecalciferol (vitamin D3) 25 25 mcg PO QAM 07/12/21 03/08/22 mcg (1,000 unit) tablet gabapentin 300 mg capsule 100 mg PO TID 07/12/21 03/08/22 insulin aspart U-100 100 unit/mL subcut 07/12/21 (3 mL) subcutaneous pen (Novolog FlexPen U-100 Insulin aspart) lancets 28 gauge (TRUEplus Lancets) #100 ea 07/12/21 lisinopril 40 mg tablet 40 mg PO QAM 07/12/21 03/08/22 pen needle, diabetic 32 gauge x #50 ea 07/12/21/32 (Pentips) risperidone 3 mg tablet 3 mg PO BEDTIME 07/12/21 03/08/22 fluticasone propionate 110 2 puff inhalation BID 08/31/21 03/08/22 mcg/actuation HFA aerosol inhaler (Flovent HFA) empagliflozin 10 mg tablet 10 mg PO QAM 02/09/22 03/08/22 (Jardiance) dulaglutide 1.5 mg/0.5 mL mg subcut QWEEK 09/28/22 subcutaneous pen injector (Bob) acetaminophen 500 mg tablet 1,000 mg PO Q6H PRN pain 12/05/22 cholecalciferol (vitamin D3) 50 50 mcg PO QAM 12/05/22 mcg (2,000 unit) capsule empagliflozin 25 mg tablet 25 mg PO QAM 12/29/22 (Jardiance) tirzepatide 5 mg/0.5 mL mg subcut QWEEK 12/29/22 subcutaneous pen injector (Karla) Previous Rx's Medication Instructions Recorded hydroxyzine HCl 25 mg tablet 25 mg PO BEDTIME PRN itching #14 10/10/21 tabs docusate sodium 100 mg capsule 100 mg PO BEDTIME #90 caps 03/01/22 famotidine 20 mg tablet (Pepcid) 20 mg PO BEDTIME #90 tabs 03/01/22 pantoprazole 20 mg tablet,delayed 20 mg PO BID #180 tabs 03/01/22 release sennosides 8.6 mg tablet (Natural 17.2 mg PO BEDTIME constipation 05/31/22 Senna Laxative) #180 tabs polyethylene glycol 3350 17 17 g PO DAILY #510 grams 10/17/22 gram/dose oral powder (Miralax) celecoxib 200 mg capsule 200 mg PO BID #60 caps 11/29/22 diclofenac sodium 1 % topical gel 4 g topical QID pain #100 grams 12/05/22 (Arthritis Pain (diclofenac)) Allergies Allergy/AdvReac Type Severity Reaction Status Date / Time No Known Allergies Allergy Verified 12/29/22 13:23 Review of Systems Review of Systems: Constitutional : No Weight loss, No Fever, No Chills, No Night Sweats, No Fatigue, No Malaise ENT/Mouth : No Hearing loss, No Ear Pain, No Nasal Congestion, No Sinus Pain, No Hoarseness, No sore throat, No Rhinorrhea, No Swallowing Difficulty Eyes: No Eye Pain, No Swelling, No Redness, No Foreign Body, No Discharge, No Vision Changes Cardiovascular : No Chest Pain, No SOB, No Dyspnea on Exertion, No Orthopnea, No Edema, No Palpitations Respiratory : No Cough, No Sputum, No Wheezing, No Smoke Exposure, No Dyspnea Gastrointestinal : No Nausea, No Vomiting, No Diarrhea, No Constipation, No abdominal Pain, No Hematochezia, No Melena Genitourinary : no irregular bleeding, No Dysuria, No Urinary Frequency, No Hematuria, No Urinary Incontinence, No Urgency, No Flank Pain, No Urinary Flow Changes, No Hesitancy Musculoskeletal : No joint pain, No Myalgias, No Joint Swelling Skin : No Skin Lesions, No rash Neuro : No Weakness, No Numbness, No Paresthesias, No Loss of Consciousness, No Dizziness, No Headache Psych : No Anxiety/Panic, No Depression, No SI/HI/AH/VH, No Social Issues, Heme/Lymph: No Bruising, No Bleeding,No Lymphadenopathy Endocrine : No Polyuria, No Polydipsia, multiple episodes of hypoglycemia PMFSH Past Medical History Medical History CAD (coronary artery disease) Chronic idiopathic constipation Diabetes Elevated PSA Family history of prostate cancer Myocardial infarct, old Painful arc syndrome of right shoulder PVD (peripheral vascular disease) Scrotal swelling Tubular adenoma Surgical History History of cardiac cath History of esophagogastroduodenoscopy (EGD) History of surgery History of vascular surgery Hx of arthroscopic knee surgery Hx of colonoscopy Hx of ligation of vein Family History Family History Maternal Grandmother Diabetes Paternal Grandmother Diabetes Brother Diabetes Mother No problems noted. Father Diabetes Social History Social History Alcohol intake: never Patient Tobacco Use Status: Former Tobacco user Quit Date: 2014 Smoked: 35+ Smoked in Last 30 Days: No Use of substances other than those prescribed or required for medical reasons: No Advance Directives: No Advance Directives Information Provided: No Current occupational status: disabled Current occupation: right hand dominant Physical Exam ED Vital Signs: Vital Signs - 24 hr 01/05/23 20:34 01/05/23 20:59 Temperature 98.0 F 98.1 F Pulse Rate 86 79 Respiratory Rate 16 18 Blood Pressure 181/94 H 160/81 H Pulse Oximetry 98 97 Oxygen Delivery Method Room Air Room Air BMI result Body Mass Index 35.5 Const Other: Appearance: Alert. Oriented X3. No acute distress. Eyes: Pupils equal, round and reactive to light. ENT: Pharynx normal. Neck: Normal inspection. Neck supple. No lymph nodes noted. No crepitus CVS: Normal heart rate and rhythm. Pulses normal. Normal S1 and S2 Respiratory: No respiratory distress. Breath sounds normal. No Wheezing. No rales Abdomen: Soft and nontender. No rigidity. No distention. Skin: Skin warm and dry. Normal skin color. Normal skin turgor. Extremities: No lower extremity edema. No Lacerations. No Rash Neuro: Oriented X 3. No motor deficit. No sensory deficit. Moving all extre mities. No slurred speech. CN 2 through 12 grossly intact Psych: calm, cooperative, normal affect Course Course Course Narrative: This is an RME: Additional HPI, ROS, PE not included below will be deferred to primary provider. Patient is a 62 year old male presenting with a blood sugar of 59. Blood glucose now 100 on exam. He also admits to feeling light headed and dizzy. Charge nurse aware of patients low sugars and will try to find a bed. Plan: labs, urine Medical Decision Making Medical Decision Making MDM Narrative: -it is possible the patient may no longer need any diabetic medications. At this time, A1c cannot be done per the lab staff. -patient's glucose is 93, patient is symptomatic. We will monitor his blood glucose for couple of hours. Patient states that he has glucose tablets at home. -I discussed with the patient that this likely that he will have to discontinue this medication as well. He is not due for another dose until next week. -when we compared patient's blood glucose with his monitor an hours, patient's mother read twice 64, our monitor was 105. Patient asymptomatic. It is likely that his glucose monitored is not calibered -patient states that he has enough glucose tablets at home and does not require a prescription -my interpretation of EKG: Normal sinus rhythm, heart rate 76, no ST segment depression or elevation, no T-wave inversion, QTC 468 -troponin negative, -patient denies chest pain -dizziness secondary to hypoglycemia, unlikely to be of cardiac etiology Differential Diagnosis Differential Diagnoses: The differential diagnosis associated with the presentation includes (Hypoglycemia, monitor calibration issues, over medication) Admission/Observation Consideration of admission/observation: Escalation of care including admission/observation considered (Patient states he has had multiple hypoglycemic events, patient was considered) Consult Healthcare Provider Management of the patient was discussed with: Hospitalist (I discussed the patient with Dr. Gaona, consider admission for observation to check glucose, patient has not been hypoglycemic to admit) Lab Data 01/05/23 20:45 01/05/23 20:45 Labs: Lab Results 01/05/23 01/05/23 01/05/23 Range/Units 20:45 20:45 20:45 WBC 7.7 (4.8-10.8) X10*3/uL RBC 4.90 (4.60-5.80) X10*6/uL Hgb 13.6 L (14.0-18.0) g/dl Hct 41.2 L (42.0-52.0) % MCV 84.1 (80.0-98.0) fL MCH 27.8 (27.0-33.0) pg MCHC 33.0 (31.0-36.0) g/dl RDW 14.5 (11.0-16.0) % Plt Count 200 (160-400) X10*3/uL MPV 10.0 (9.4-12.4) fL Immature Gran % (Auto) 0.3 (0.0-0.4) % Neut % (Auto) 52.3 (45-73) % Lymph % (Auto) 34.9 (20-40) % [place] % (Auto) 7.0 (2-11) % Eos % (Auto) 5.0 H (0-4) % Baso % (Auto) 0.5 (0-2) % Lymph # (Auto) 2.7 (1.2-4.9) X10*3/uL [place] # (Auto) 0.5 (0.1-1.2) X10*3/uL Eos # (Auto) 0.4 (0.0-0.4) X10*3/uL Baso # (Auto) 0.0 (0.0-0.2) X10*3/uL Abs Immat Gran (auto) 0.02 (0.00-0.03) X10*3/uL Absolute Neuts (auto) 4.1 (2.0-8.3) x10*3/uL Absolute Nucleated RBC 0.000 (0.0-0.012) X10*3/uL Nucleated RBC % (auto) 0.0 (0.0-0.2) /100WBC Sodium 141 (135-145) mmol/L Potassium 4.2 (3.3-5.1) mmol/L Chloride 111 H (96-108) mmol/L Carbon Dioxide 19 L (22-29) mmol/L Anion Gap 15 (12-20) BUN 22 H (9-16) mg/dL Creatinine 1.19 (0.5-1.4) mg/dL Estim Creat Clear Calc 66.5 Estimated GFR > 60 POC Glucose (60-115) mg/dL Random Glucose 100 (60-115) mg/dL Calcium 9.6 D (8.4-10.2) mg/dL Magnesium 2.2 (1.6-2.6) mg/dL Total Bilirubin 0.4 (0.0-1.0) mg/dL AST 35 (5-37) U/L ALT 54 H (0-40) U/L Alkaline Phosphatase 116 (39-117) U/L Troponin I High Sens (<3.5-35.0) ng/L Total Protein 8.0 (6.5-8.0) g/dL Albumin 4.3 (3.5-5.0) g/dL Urine Color Yellow Urine Appearance Clear Urine pH 6.5 (5.0-9.0) Ur Specific [place] 1.015 (1.005-1.025) Urine Protein Trace (Neg-Trace) mg/dL Urine Glucose (UA) >=1000 H (Negative) mg/dL Urine Ketones Negative (Negative) mg/dL Urine Blood Negative (Negative) Urine Nitrite Negative (Negative) Ur Leukocyte Esterase Negative (Negative) Urine RBC 0-2 (0-2) /HPF Urine WBC 0-5 (0-5) /HPF Ur Squamous Epith Cells 0-2 (0-2) /HPF Urine Bacteria None Seen (None Seen) Hyaline Casts 0-2 (0-2) /LPF 01/05/23 01/05/23 01/05/23 Range/Units 20:45 20:53 21:36 WBC (4.8-10.8) X10*3/uL RBC (4.60-5.80) X10*6/uL Hgb (14.0-18.0) g/dl Hct (42.0-52.0) % MCV (80.0-98.0) fL MCH (27.0-33.0) pg MCHC (31.0-36.0) g/dl RDW (11.0-16.0) % Plt Count (160-400) X10*3/uL MPV (9.4-12.4) fL Immature Gran % (Auto) (0.0-0.4) % Neut % (Auto) (45-73) % Lymph % (Auto) (20-40) % [place] % (Auto) (2-11) % Eos % (Auto) (0-4) % Baso % (Auto) (0-2) % Lymph # (Auto) (1.2-4.9) X10*3/uL [place] # (Auto) (0.1-1.2) X10*3/uL Eos # (Auto) (0.0-0.4) X10*3/uL Baso # (Auto) (0.0-0.2) X10*3/uL Abs Immat Gran (auto) (0.00-0.03) X10*3/uL Absolute Neuts (auto) (2.0-8.3) x10*3/uL Absolute Nucleated RBC (0.0-0.012) X10*3/uL Nucleated RBC % (auto) (0.0-0.2) /100WBC Sodium (135-145) mmol/L Potassium (3.3-5.1) mmol/L Chloride (96-108) mmol/L Carbon Dioxide (22-29) mmol/L Anion Gap (12-20) BUN (9-16) mg/dL Creatinine (0.5-1.4) mg/dL Estim Creat Clear Calc Estimated GFR POC Glucose 93 100 (60-115) mg/dL Random Glucose (60-115) mg/dL Calcium (8.4-10.2) mg/dL Magnesium (1.6-2.6) mg/dL Total Bilirubin (0.0-1.0) mg/dL AST (5-37) U/L ALT (0-40) U/L Alkaline Phosphatase (39-117) U/L Troponin I High Sens 8.1 (<3.5-35.0) ng/L Total Protein (6.5-8.0) g/dL Albumin (3.5-5.0) g/dL Urine Color Urine Appearance Urine pH (5.0-9.0) Ur Specific [place] (1.005-1.025) Urine Protein (Neg-Trace) mg/dL Urine Glucose (UA) (Negative) mg/dL Urine Ketones (Negative) mg/dL Urine Blood (Negative) Urine Nitrite (Negative) Ur Leukocyte Esterase (Negative) Urine RBC (0-2) /HPF Urine WBC (0-5) /HPF Ur Squamous Epith Cells (0-2) /HPF Urine Bacteria (None Seen) Hyaline Casts (0-2) /LPF 01/05/23 01/05/23 Range/Units 22:05 22:25 WBC (4.8-10.8) X10*3/uL RBC (4.60-5.80) X10*6/uL Hgb (14.0-18.0) g/dl Hct (42.0-52.0) % MCV (80.0-98.0) fL MCH (27.0-33.0) pg MCHC (31.0-36.0) g/dl RDW (11.0-16.0) % Plt Count (160-400) X10*3/uL MPV (9.4-12.4) fL Immature Gran % (Auto) (0.0-0.4) % Neut % (Auto) (45-73) % Lymph % (Auto) (20-40) % [place] % (Auto) (2-11) % Eos % (Auto) (0-4) % Baso % (Auto) (0-2) % Lymph # (Auto) (1.2-4.9) X10*3/uL [place] # (Auto) (0.1-1.2) X10*3/uL Eos # (Auto) (0.0-0.4) X10*3/uL Baso # (Auto) (0.0-0.2) X10*3/uL Abs Immat Gran (auto) (0.00-0.03) X10*3/uL Absolute Neuts (auto) (2.0-8.3) x10*3/uL Absolute Nucleated RBC (0.0-0.012) X10*3/uL Nucleated RBC % (auto) (0.0-0.2) /100WBC Sodium (135-145) mmol/L Potassium (3.3-5.1) mmol/L Chloride (96-108) mmol/L Carbon Dioxide (22-29) mmol/L Anion Gap (12-20) BUN (9-16) mg/dL Creatinine (0.5-1.4) mg/dL Estim Creat Clear Calc Estimated GFR POC Glucose 106 97 (60-115) mg/dL Random Glucose (60-115) mg/dL Calcium (8.4-10.2) mg/dL Magnesium (1.6-2.6) mg/dL Total Bilirubin (0.0-1.0) mg/dL AST (5-37) U/L ALT (0-40) U/L Alkaline Phosphatase (39-117) U/L Troponin I High Sens (<3.5-35.0) ng/L Total Protein (6.5-8.0) g/dL Albumin (3.5-5.0) g/dL Urine Color Urine Appearance Urine pH (5.0-9.0) Ur Specific [place] (1.005-1.025) Urine Protein (Neg-Trace) mg/dL Urine Glucose (UA) (Negative) mg/dL Urine Ketones (Negative) mg/dL Urine Blood (Negative) Urine Nitrite (Negative) Ur Leukocyte Esterase (Negative) Urine RBC (0-2) /HPF Urine WBC (0-5) /HPF Ur Squamous Epith Cells (0-2) /HPF Urine Bacteria (None Seen) Hyaline Casts (0-2) /LPF Discharge Plan Discharge Clinical Impression: Hypoglycemia Patient Disposition: Home, Self-Care Instructions: What to Do if Your Blood Sugar is Low (ED) Additional Instructions: Please follow-up with your primary care physician tomorrow. If you have any worsening or new symptoms, please return to the emergency room or call 911 Prescriptions: No Action celecoxib 200 mg capsule 200 mg PO BID Qty: 60 3RF hydroxyzine HCl 25 mg tablet 25 mg PO BEDTIME PRN (Reason: itching) Qty: 14 0RF acetaminophen 500 mg capsule 500 mg PO Q6H PRN (Reason: Pain) aspirin [Adult Low Dose Aspirin] 81 mg tablet,delayed release (DR/EC) 81 mg PO DAILY clopidogrel [Plavix] 75 mg tablet 75 mg PO DAILY cilostazol 100 mg tablet 100 mg PO BID (DME) FreeStyle Lite Strips Strip See Rx Instructions .ROUTE .MEDSUPPLY Qty: 10 Rx Instructions: As directed isosorbide mononitrate 60 mg tablet extended release 24 hr 60 mg PO QAM Lantus Solostar U-100 Insulin 100 unit/mL (3 mL) insulin pen 10 unit subcut QPM amlodipine [Norvasc] 10 mg tablet 10 mg PO DAILY albuterol sulfate 2.5 mg/0.5 mL solution for nebulization 5 mg inhalation Q4H glucose [Dex4 Glucose] 4 gram tablet,chewable 4 g PO Q15M PRN (Reason: Hypoglycemia) Rx Instructions: until symptoms of low blood sugar are controlled risperidone 1 mg/mL solution 2 mg PO BEDTIME atorvastatin 80 mg tablet 80 mg PO DAILY Novolin N FlexPen 100 unit/mL (3 mL) insulin pen 20 unit subcut QAM tramadol 50 mg tablet 50 mg PO TID PRN (Reason: Pain) Flovent HFA 110 mcg/actuation HFA aerosol inhaler 2 puff inhalation BID Jardiance 10 mg tablet 10 mg PO QAM sennosides [Natural Senna Laxative] 8.6 mg tablet 17.2 mg PO BEDTIME Qty: 180 3RF (DME) lancets [TRUEplus Lancets] 28 gauge misc See Rx Instructions Not Applicable .MEDSUPPLY Qty: 100 Rx Instructions: As directed (DME) pen needle, diabetic [Pentips] 32 gauge x 5/32 needle See Rx Instructions .ROUTE DAILY Qty: 50 Rx Instructions: As directed cholecalciferol (vitamin D3) 25 mcg (1,000 unit) tablet 25 mcg PO QAM insulin aspart U-100 [Novolog FlexPen U-100 Insulin] 100 unit/mL (3 mL) insulin pen subcut lisinopril 40 mg tablet 40 mg PO QAM gabapentin 300 mg capsule 100 mg PO TID risperidone 3 mg tablet 3 mg PO BEDTIME carvedilol 6.25 mg tablet 6.25 mg PO BID pantoprazole 20 mg tablet,delayed release (DR/EC) 20 mg PO BID Qty: 180 3RF famotidine [Pepcid] 20 mg tablet 20 mg PO BEDTIME Qty: 90 3RF docusate sodium 100 mg capsule 100 mg PO BEDTIME Qty: 90 3RF polyethylene glycol 3350 [Miralax] 17 gram/dose powder 17 g PO DAILY Qty: 510 2RF Trulicity 1.5 mg/0.5 mL pen injector subcut QWEEK acetaminophen 500 mg tablet 1,000 mg PO Q6H PRN (Reason: pain) cholecalciferol (vitamin D3) 50 mcg (2,000 unit) capsule 50 mcg PO QAM diclofenac sodium [Arthritis Pain (diclofenac)] 1 % gel 4 g topical QID Qty: 100 0RF Mounjaro 5 mg/0.5 mL pen injector subcut QWEEK Jardiance 25 mg tablet 25 mg PO QAM
[2023-01-05 20:34] VITALS: BP 181/94; PULSE 86; RESP 16; TEMP 36.7; O2SAT 98; BMI 35.5
--- NOTE | 2023-01-05 20:48 | MHC.EDTECH ---
PATIENT BLOOD SUGAR CHECK ,JENS SOLOMON AWARE OF PT RESULT ,PATIENT URINE SAMPLE COLLECTED AND BLOOD DRAWN ALL SENT TO LAB .
[2023-01-05 20:49] LABS: MANUAL DIFF FLAG NO
[2023-01-05 20:50] LABS: Basophils Percent Auto 0.5 % (0-2); Eosinophils Absolute Auto 0.4 X10*3/uL (0.0-0.4); Hematocrit 41.2 % (42.0-52.0); Hemoglobin 13.6 g/dl (14.0-18.0); Imm Gran Abs Auto 0.02 X10*3/uL (0.00-0.03); Imm Gran Pct Auto 0.3 % (0.0-0.4); Lymphocytes Absolute Auto 2.7 X10*3/uL (1.2-4.9); Lymphocytes Percent Auto 34.9 % (20-40); Mean Corpuscular Hemoglobin 27.8 pg (27.0-33.0); Mean Corpuscular Volume 84.1 fL (80.0-98.0); Monocytes Absolute Auto 0.5 X10*3/uL (0.1-1.2); Neutrophils Absolute Auto 4.1 x10*3/uL (2.0-8.3); Neutrophils Percent Auto 52.3 % (45-73); Platelet Count 200 X10*3/uL (160-400); Red Cell Distribution Width 14.5 % (11.0-16.0); White Blood Count 7.7 X10*3/uL (4.8-10.8)
[2023-01-05 20:51] LABS: Appearance Urine Clear; Color Urine Yellow; Glucose Urine UA >=1000 mg/dL (Negative); Leukocyte Esterase Urine Negative (Negative); Nitrite Urine Negative (Negative); PH 6.5 (5.0-9.0); Specific Gravity - Urine 1.015 (1.005-1.025); UMIC TRIGGER UACC YES; Urine Blood Negative (Negative); Urine Ketones Negative (Negative); Urine Protein Trace mg/dL (Neg-Trace)
[2023-01-05 20:57] LABS: Glucose, Whole Blood 93 mg/dL (60-115)
[2023-01-05 20:59] VITALS: BP 160/81; PULSE 79; RESP 18; TEMP 36.7; O2SAT 97
[2023-01-05 21:03] LABS: Alanine Aminotransferase 54 U/L (0-40); Albumin Level 4.3 g/dL (3.5-5.0); Alkaline Phosphatase 116 U/L (39-117); Anion Gap 15 (12-20); Aspartate Amino Transferase 35 U/L (5-37); Bilirubin Total 0.4 mg/dL (0.0-1.0); Blood Urea Nitrogen 22 mg/dL (9-16); Calcium 9.6 mg/dL (8.4-10.2); Carbon Dioxide 19 mmol/L (22-29); Chloride 111 mmol/L (96-108); Creatinine Clr Calc Pharmacy 66.5; Estimated Glomerular Filt Rate > 60; Glucose Random 100 mg/dL (60-115); Magnesium 2.2 mg/dL (1.6-2.6); Potassium 4.2 mmol/L (3.3-5.1); Sodium 141 mmol/L (135-145)
--- NOTE | 2023-01-05 21:21 | ECG_ITS ---
Test Reason : DIZZINESS Blood Pressure : / mmHG Vent. Rate : 076 BPM Atrial Rate : 076 BPM P-R Int : 160 ms QRS Dur : 084 ms QT Int : 416 ms P-R-T Axes : 032 -36 057 degrees QTc Int : 468 ms Normal sinus rhythm Left axis deviation Cannot rule out Anteroseptal infarct , age undetermined Abnormal ECG When compared with ECG of 23-NOV-2021 18:42, No significant change was found Referred By: Janell Tamayo Electronically Signed By:Bassam Ogden
[2023-01-05 21:36] LABS: Bacteria Urine None Seen (None Seen); Hyaline Casts Urine 0-2 /LPF (0-2); RBC Urine 0-2 /HPF (0-2); Squamous Epithelial Cell Urine 0-2 /HPF (0-2); WBC Urine 0-5 /HPF (0-5)
[2023-01-05 21:40] LABS: Glucose, Whole Blood 100 mg/dL (60-115)
[2023-01-05 21:42] LABS: Troponin-I High Sensitivity 8.1 ng/L (<3.5-35.0)
--- NOTE | 2023-01-05 22:08 | PC.NURSE ---
Pt reporting his bs is in the 60's on his home monitor scale. Rechecked with hospital monitor BG was 105. Updated Dr. Tamayo recheck in 30 minute.
[2023-01-05 22:10] LABS: Glucose, Whole Blood 106 mg/dL (60-115)
[2023-01-05 22:29] LABS: Glucose, Whole Blood 97 mg/dL (60-115)
[2023-01-05 23:10] LABS: Glucose, Whole Blood 96 mg/dL (60-115)
--- NOTE | 2023-01-06 00:19 | PC.NURSE ---
This Rn reviewed discharge instructions with pt. pt verbalized understanding. no sign of distress. Notified RN maribell
[2023-01-08 09:00] LABS: Glucose, Whole Blood 100 mg/dL (60-115)
== END 2023-01-06 00:20 | disposition home or self-care (01) ==
PROVIDERS: Physician Assistant; Emergency Provider Emergency Medicine; PCP Student in an Organized Health Care Education/Training Program
DX: E11.649 Type 2 diabetes mellitus with hypoglycemia without coma (principal); I25.2 Old myocardial infarction; Z87.891 Personal history of nicotine dependence; Z79.82 Long term (current) use of aspirin; Z79.899 Other long term (current) drug therapy; Z79.4 Long term (current) use of insulin
CPT/HCPCS: 36415; 80053; 81001; 82947; 83735; 84484; 85025; 93005; 99283; 99284

== ENCOUNTER → 2023-01-05 21:21 | Outpatient (BNV) | payer MEDICAID, SELFPAY | PROVIDERS: Emergency Provider Emergency Medicine; PCP Student in an Organized Health Care Education/Training Program; Visit Provider Internal Medicine Cardiovascular Disease | DX: R94.31 Abnormal electrocardiogram [ECG] [EKG] (principal) | CPT/HCPCS: 93010 ==

== ENCOUNTER 2023-02-15 13:24 | Outpatient (AMB) | payer MEDICAID, SELFPAY ==
[2023-02-15 13:38] VITALS: BMI 35.5
--- NOTE | 2023-02-15 13:38 | A.OFFVIS_ITS ---
Intake Vital Signs 02/15/23 13:38 Height 5 ft 4 in Weight 207 lb BMI 35.5 Intake Visit Reasons: ov- left shoulder pain Intake Note: Osvaldo 62 yr old male presents today s/p Sprint trial w/ pain management. States this did not help at all. He is still limted ROM and pain with over use. 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 He continues to have pain and limited ROM in his shoulder with overuse. He had a supraspinatus nerve block trial with pain management which did not provide him any relief. He also had a cortisone injection in the past without benefits. He has a history of diabetes. His sugar level was 123 this morning. [facility] Medical History CAD (coronary artery disease) Chronic idiopathic constipation Diabetes Elevated PSA Family history of prostate cancer Myocardial infarct, old Painful arc syndrome of right shoulder PVD (peripheral vascular disease) Scrotal swelling Tubular adenoma Surgical History History of cardiac cath History of esophagogastroduodenoscopy (EGD) History of surgery History of vascular surgery Hx of arthroscopic knee surgery Hx of colonoscopy Hx of ligation of vein Family History Maternal Grandmother Diabetes Paternal Grandmother Diabetes Brother Diabetes Mother No problems noted. Father Diabetes Social History Alcohol intake: never Patient Tobacco Use Status: Former Tobacco user Quit Date: 2014 Years Smoked: 35+ Current occupational status: disabled Current occupation: right hand dominant Review of Systems Const All systems reviewed & are unremarkable except as noted in HPI and below Physical Exam Vital Signs: BMI result Body Mass Index 35.5 Const General: cooperative, healthy appearing, comfortable, no acute distress, well developed and alert Orientation/consciousness: patient oriented x3 HEENT Head: Yes normal to inspection, Yes normocephalic and Yes atraumatic Eyes General: appearance normal, both eyes and all related structures Resp Effort & Inspection: normal respiratory effort and able to speak in complete sentences Cardio Rate: regular rate Peripheral pulses: Peripheral pulses 2+ throughout GI Palpation (GI): Soft to palpation Skin Lesions: no lesions Rashes: no rashes Neuro General: patient oriented x3 Extrem Other: Right shoulder Tenderness over the bicipital groove and along the deltoid region of the shoulder. Forward flexion to 175, external rotation to 90, internal rotation to S1. 5/5 RTC strength. Negative Encarnacion and cross body abduction. NVI. Compensation with the use of accessory muscles with rotator cuff strength testing on right shoulder when compared to the contralateral side. Office Procedures Joint Injection/Drain Joint Injection/Drain Primary Site: right shoulder Prep: site was prepped using aseptic technique, ethochloride spray was applied and injection warnings given Injected: 40 mg of, DepoMedrol, with 8 mL of, 1% plain lidocaine and in the subcromial space Approach Used: posterolateral Procedure: The patient tolerated the procedure well and there was some relief with the local anesthesia Coding 08083 - Glenohumeral/Tronchanteric Bursa/Intraarticular Procedure code (CPT) selection complete Results Reviewed Results Reviewed: 02/15/23 14:40 Lidocaine HCl 2 % MPF [Xylocaine 2 % MPF] 5 ml .ROUTE .STK-MED ONE 02/15/23 14:41 methylPREDNISolone acetate [DEPO-MedroL] 40 mg .ROUTE .STK-MED ONE Assessment & Plan Assessment & Plan (1) Injury of right rotator cuff: Code(s): S46.001A - Unspecified injury of muscle(s) and tendon(s) of the rotator cuff of right shoulder, initial encounter Qualifiers: Encounter type: subsequent encounter Qualified Code(s): S46.001D - Unspecified injury of muscle(s) and tendon(s) of the rotator cuff of right shoulder, subsequent encounter Plan We discussed options today which include steroid injection. They did consent to move forward with the left shoulder injection, which was tolerated well. I recommended rest, ice and elevation and OTC anti-inflammatories PRN for discomfort. I also discussed potentially returning back to pain management to try medial branch nerve block that was discussed with him. He would like to take this into consideration. I did reach out to pain management to see if they can book this for him. If symptoms persist or worsens over the next 6-8 weeks, patient will contact the office, otherwise follow-up as needed. Patient Instructions: Scribed for Barber Bishop PA-C, by [facility] medical laboratory specialist, on 02/15/2023 at 1:45 PM JOHN. Barber Mora PA-C, have personally reviewed and agree with the information entered by the scribe. Coding Level of Care Code Est Pt Level 3 (98528) Diagnoses Injury of right rotator cuff, subsequent encounter S46.001D Encounter type: subsequent encounter CPT Codes Coding - Joint 7: 95038 - Glenohumeral/Tronchanteric Bursa/Intraarticular ([id number])
== END 2023-02-15 15:07 | disposition home or self-care (01) ==
PROVIDERS: PCP Internal Medicine; Visit Provider Physician Assistant
DX: S46.001D Unspecified injury of muscle(s) and tendon(s) of the rotator cuff of right shoulder, subsequent encounter (principal)
CPT/HCPCS: 99213

== ENCOUNTER → 2023-02-15 13:24 | Outpatient (BNVA) | payer MEDICAID, SELFPAY | PROVIDERS: PCP Internal Medicine; Visit Provider Physician Assistant | DX: S46.001D Unspecified injury of muscle(s) and tendon(s) of the rotator cuff of right shoulder, subsequent encounter (principal) | CPT/HCPCS: 20610; 99212; J1020 ==

== ENCOUNTER 2023-03-09 09:04 | Outpatient (AMB) | payer MEDICAID, SELFPAY ==
--- NOTE | 2023-03-09 09:47 | A.OFFVIS_ITS ---
Intake Vital Signs 03/09/23 09:49 Height 5 ft 4 in Weight 197 lb BMI 33.8 BP 135/66 Blood Pressure Location Lt brachial Position Sitting Respiration 14 Pulse 83 Pulse Source Pulse Oximeter Oxygen Delivery Method Room Air Intake Visit Reasons: RIGHT INTRA-ARTICULAR SHOULDER INJECTION Allergies No Known Allergies Allergy (Verified 03/12/23 11:08) HPI RIGHT INTRA-ARTICULAR SHOULDER INJECTION HPI Details 62-year-old male who presents today to t he office for a right intra- articular shoulder injection Denies any recent cough, cold, infection, fever or other significant changes in medical history since last office visit. A certified lang interpreter was present during the visit. [facility], LATER [facility] Medical History Painful arc syndrome of right shoulder Chronic idiopathic constipation Tubular adenoma Myocardial infarct, old Diabetes PVD (peripheral vascular disease) CAD (coronary artery disease) Family history of prostate cancer Scrotal swelling Elevated PSA Surgical History Hx of ligation of vein History of esophagogastroduodenoscopy (EGD) Hx of colonoscopy Hx of arthroscopic knee surgery History of surgery History of vascular surgery History of cardiac cath Family History Maternal Grandmother Diabetes Paternal Grandmother Diabetes Brother Diabetes Mother No problems noted. Father Diabetes Social History Alcohol intake: never Patient Tobacco Use Status: Former Tobacco user Quit Date: 2014 Years Smoked: 35+ Current occupational status: disabled Current occupation: right hand dominant Review of Systems Const All systems reviewed & are unremarkable except as noted in HPI and below Physical Exam Vital Signs: Last Vital Signs Pulse 83 03/09/23 09:49 Resp 14 03/09/23 09:49 BP 135/66 03/09/23 09:49 Oxygen Delivery Method Room Air 03/09/23 09:49 BMI result Body Mass Index 33.8 General: Appears afebrile. Alert and oriented. Mood and affect appropriate. Follows and participates in conversation appropriately. Respiratory effort is unlabored. Able to transition from sit to stand unassisted. Ambulates with bilaterally normal heel strike and toe off. Office Procedures Joint Injection/Drain Joint Injection/Drain Details: Right subacromial shoulder injection, under ultrasound guidance Primary Site: right shoulder Prep: site was prepped using aseptic technique and site was prepped using sterile technique Injected: 40 mg of, Kenalog, with 3 mL of, 0.25% bupivacaine and in the subcromial space (on right side) Approach Used: posterolateral Procedure: The patient tolerated the procedure well Coding Details: An ultrasound image of the injection was taken and stored in the permanent record. 92404 - Acromioclavicular with ultrasound guidance Procedure code (CPT) selection complete Results Reviewed Results Reviewed: No imaging is available for review. Assessment & Plan Assessment & Plan (1) Tendinosis of right shoulder: Code(s): M67.813 - Other specified disorders of tendon, right shoulder Plan Patient is status post right subacromial shoulder injection, under ultrasound guidance. Patient tolerated procedure well and was discharged home in stable condition with discharge instructions. All questions were answered. We will follow-up via telephone or in clinic to assess response to therapy. Scribed for Dr. Nicholas by Ry Puckett, medical transcriber, on 03/09/2023. I, Dr. Nicholas, have personally reviewed and agree with the information entered by the scribe. Coding Level of Care Code Procedure Only Diagnoses Tendinosis of right shoulder M67.813 CPT Codes Coding - Joint 6: 25023 - Acromioclavicular with ultrasound guidance ([id number])
[2023-03-09 09:49] VITALS: BP 135/66; PULSE 83; RESP 14; BMI 33.8
== END 2023-03-09 10:31 | disposition home or self-care (01) ==
PROVIDERS: PCP Internal Medicine; Visit Provider Internal Medicine
DX: M67.813 Other specified disorders of tendon, right shoulder (principal)
CPT/HCPCS: 20606

== ENCOUNTER → 2023-03-09 09:04 | Outpatient (BNVA) | payer MEDICAID, SELFPAY | PROVIDERS: PCP Internal Medicine; Visit Provider Internal Medicine | DX: M67.813 Other specified disorders of tendon, right shoulder (principal) | CPT/HCPCS: 20606; J3301 ==

== ENCOUNTER 2023-03-12 09:45 | Outpatient (AMB) | payer MEDICAID, SELFPAY ==
--- NOTE | 2023-03-12 09:50 | A.OFFVIS_ITS ---
Intake Intake Visit Reasons: Erectile dys (saw Dr. Smiley in 2020) Intake Note: Patient presents for erectile dysfunction Urology Medications: None Blood Thinner: Clopidogrel (Plavix), aspirin Mold Bunch Trimmer Required: Yes Mold Bunch Trimmer Name: Julian Accompanied by: Self / Same As Patient Allergies No Known Allergies Allergy (Verified 03/12/23 11:08) Medication List - Last Reconciled 03/12/23 by OLAF Nelson acetaminophen 500 mg PO Q6H PRN acetaminophen 1,000 mg PO Q6H PRN albuterol sulfate 5 mg inhalation Q4H amlodipine (Norvasc) 10 mg PO DAILY aspirin (Adult Low Dose Aspirin) 81 mg PO DAILY atorvastatin 80 mg PO DAILY blood sugar diagnostic (FreeStyle Lite Strips) As directed carvedilol 6.25 mg PO BID celecoxib 200 mg PO BID cholecalciferol (vitamin D3) 25 mcg PO QAM cholecalciferol (vitamin D3) 50 mcg PO QAM cilostazol 100 mg PO BID clopidogrel (Plavix) 75 mg PO DAILY diclofenac sodium 1% (Arthritis Pain (diclofenac)) 4 grams topical QID docusate sodium 100 mg PO BEDTIME dulaglutide (Trulicity) mg subcut QWEEK empagliflozin (Jardiance) 10 mg PO QAM empagliflozin (Jardiance) 25 mg PO QAM famotidine (Pepcid) 20 mg PO BEDTIME fluticasone propionate 110 mcg/actuation (Flovent HFA) 2 puffs inhalation BID gabapentin 100 mg PO TID glucose (Dex4 Glucose) 4 grams PO Q15M PRN hydroxyzine HCl 25 mg PO BEDTIME PRN insulin aspart U-100 (Novolog FlexPen U-100 Insulin aspart) subcut insulin glargine (Lantus Solostar U-100 Insulin) 10 units subcut QPM insulin NPH isoph U-100 human (Novolin N FlexPen) 20 units subcut QAM isosorbide mononitrate ER 60 mg PO QAM lancets (TRUEplus Lancets) As directed lisinopril 40 mg PO QAM pantoprazole 20 mg PO BID pen needle, diabetic (Pentips) As directed polyethylene glycol 3350 (Miralax) 17 grams PO DAILY risperidone 2 mg PO BEDTIME risperidone 3 mg PO BEDTIME sennosides (Natural Senna Laxative) 17.2 mg (2 x 8.6 mg) PO BEDTIME tadalafil (Cialis) 5 mg PO DAILY 90 days tirzepatide (Mounjaro) mg subcut QWEEK tramadol 50 mg PO TID PRN HPI HPI Comments History of Present Illness Details Osvaldo is a pleasant 62-year-old Chinese speaking male patient of Dr Tinajero. He has a past medical history of chronic idiopathic constipation, RI, diabetes, PVD, CAD, and elevated PSA. He presents to the office today for follow-up. Of note, patient was previously seen approximately [address] Oswald for his history of elevated PSA. However, recommendations were made for p.r.n. follow-up due to repeat PSA low and elevated PSA likely related to prostatitis. Patient presents to the office today for a longstanding history of erectile dysfunction. He reports following up with his PCP and discussing for many years now to be experiencing erectile dysfunction. He reports having difficulty obtaining and maintaining erections. When asked he does report sexual desire. Discussed at length potential causes for erectile dysfunction. Discussed interaction of erectile dysfunction medications with medications patient is currently taking such as Imdur. Discussed affects of low blood pressure with [facility] ED medications with current medications. Discussed at length importance of managing diabetes for improvement in erectile dysfunction as well as for overall health and well being. He otherwise denies any bothersome urinary issues. When asked he denies urinary urgency, urinary frequency, incontinence, nocturia, hematuria, dysuria, foul smelling urine, changes to urinary stream, flank pain, fever, and or chills. He is happy with his current voiding parameters. In office urinalysis results reviewed with the patient today. [facility] Medical History Painful arc syndrome of right shoulder Chronic idiopathic constipation Tubular adenoma Myocardial infarct, old Diabetes PVD (peripheral vascular disease) CAD (coronary artery disease) Family history of prostate cancer Scrotal swelling Elevated PSA Surgical History Hx of ligation of vein History of esophagogastroduodenoscopy (EGD) Hx of colonoscopy Hx of arthroscopic knee surgery History of surgery History of vascular surgery History of cardiac cath Family History Maternal Grandmother Diabetes Paternal Grandmother Diabetes Brother Diabetes Mother No problems noted. Father Diabetes Social History Alcohol intake: never Patient Tobacco Use Status: Former Tobacco user Quit Date: 2014 Years Smoked: 35+ Current occupational status: disabled Current occupation: right hand dominant Review of Systems Const Reports as per HPI Eyes Reports no additional complaints ENT Reports no additional complaints Card Reports as per HPI Resp Reports no additional complaints GI Reports as per HPI Reports as per HPI Musc Reports as per HPI Neuro Reports no additional complaints Psych Reports no additional complaints Endo Reports as per HPI Shan/Lymph Reports no additional complaints Aller/Immun Reports no additional complaints Physical Exam Const General: cooperative, healthy appearing, comfortable, no acute distress, well developed, alert and awake Nutritional Appearance: overweight Orientation/consciousness: patient oriented x3 Limitations: no limitations HEENT Head: Yes normal to inspection, Yes normocephalic and Yes atraumatic Ears: hearing grossly normal bilaterally Eyes General: appearance normal, both eyes and all related structures Neck Neck: Yes normal visual inspection and Yes trachea midline Chest Chest palpation & inspection: normal inspection of the chest Resp Effort & Inspection: normal respiratory effort and able to speak in complete sentences Cardio Rate: regular rate GI Inspection: Yes normal to inspection General: Yes no CVA tenderness Back/Spine/Pelvis Back: no CVA tenderness Skin General skin exam: no rashes or lesions noted Neuro General: patient oriented x3 Extrem General: Yes normal to inspection Psych Appearance: grossly normal and well kempt Mental Status: mental status grossly normal Speech and movement: Normal speech and movement present and Clear speech present Affect: normal affect Attitude: cooperative Thought process: Normal thought process present Thought content: Normal thought content present Insight: Fair insight present (Psych) Judgement: Fair judgement present (Psych) Results AMB Urinalysis, Automated UA Leukoctes 0 Maureen/uL Last Edit by Kylah Manriquez on 03/12/23 10:05 UA Nitrite Negative Last Edit by Kylah Manriquez on 03/12/23 10:05 UA Urobilinogen 0.2 mg/dL Last Edit by Kylah Manriquez on 03/12/23 10:05 UA Protein 30 mg/dL Last Edit by Kylah Manriquez on 03/12/23 10:05 UA pH 6.0 Last Edit by Kylah Manriquez on 03/12/23 10:05 UA Blood 0 Dhiraj/uL Last Edit by Kylah Manriquez on 03/12/23 10:05 UA Specific [place] 1.015 Last Edit by Kylah Manriquez on 03/12/23 10:05 UA Ketone Negative Last Edit by Kylah Manriquez on 03/12/23 10:05 UA Bilirubin 0 mg/dL Last Edit by Kylah Manriquez on 03/12/23 10:05 UA Glucose 1000 mg/dL Last Edit by Kylah Manriquez on 03/12/23 10:05 Results Reviewed Results Reviewed: Laboratory Last Values Urine pH (Auto) 6.0 03/12/23 09:58 Specific [place] (Auto) 1.015 03/12/23 09:58 Urine Protein (Auto) 30 mg/dL 03/12/23 09:58 Glucose (UA)(Auto) 1000 mg/dL 03/12/23 09:58 Urine Ketones (Auto) Negative 03/12/23 09:58 Urine Blood (Auto) 0 Dhiraj/uL 03/12/23 09:58 Urine Nitrite (Auto) Negative 03/12/23 09:58 Urine Bilirubin (Auto) 0 mg/dL 03/12/23 09:58 Urine Urobilinogen (Auto) 0.2 mg/dL 03/12/23 09:58 Leukocyte Esterase (Auto) 0 Maureen/uL 03/12/23 09:58 Assessment & Plan Assessment & Plan (1) Erectile dysfunction associated with type 2 diabetes mellitus: Code(s): E11.69 - Type 2 diabetes mellitus with other specified complication; N52.1 - Erectile dysfunction due to diseases classified elsewhere Plan In office urinalysis results reviewed with the patient today; as noted above. Discussed at length potential causes for erectile dysfunction patient is experiencing. Discussed and stressed the importance of managing diabetes for improvement in ED as well as overall health and well-being. Discussed lifestyle modifications to assist with erectile dysfunction. Start low-dose Cialis 5 mg daily as discussed and prescribed. Discussed and stressed the importance of monitoring blood pressure while taking low-dose Cialis and cardiac medications such as Imdur. Patient denies any bothersome urinary issues at this time. Patient reports be happy with current voiding parameters. Will obtain testosterone free and total as well as hemoglobin A1c for further assessment evaluation. Follow-up in 3 months with labs to be completed prior; or sooner with any issues, concerns, and or questions. Orders: Orders Testosterone, Free/Total 3 Months E11.69 - Type 2 diabetes mellitus with other specified complication, N52.1 - Erectile dysfunction due to diseases classified elsewhere AMB Urinalysis Automated Today Z13.9 - Encounter for screening, unspecified Hemoglobin A1c 3 Months E11.9 - Type 2 diabetes mellitus without complications Medications: New tadalafil (Cialis) BIN [id number] [facility] Group [id number] 5 mg PO DAILY 90 tabs 0RF 90 days Patient Instructions: The patient had an opportunity to ask questions regarding the treatment plan. All questions were answered. Physical exam, labs, and imaging were discussed and reviewed in detail. As well as risks, benefits, and discussion of treatment choices. No major barriers to understanding were identified. The patient expressed understanding and agreement with the above treatment plan. The patient was made aware they should contact our office by phone for worsening of their current condition, the appearance of new symptoms, or with any questions or concerns. Compliance is encouraged with any medications and follow up testing that is ordered. It is a privilege to be allowed the opportunity to participate in? your urological care.? Again, if you have any questions or concerns If you have any questions or concerns please do not hesitate to contact me. The office is [phone]. This note is constructed using voice recognition software. While every effort has been made to ensure accuracy saddle stitch operator errors may have been included. Yours sincerely, OLAF Nelson Coding Level of Care Code Est Pt Level 4 (91781) Diagnoses Erectile dysfunction associated with type 2 diabetes mellitus E11.69; N52.1
== END 2023-03-12 10:25 | disposition home or self-care (01) ==
PROVIDERS: PCP Student in an Organized Health Care Education/Training Program; Visit Provider Nurse Practitioner Family
DX: E11.69 Type 2 diabetes mellitus with other specified complication (principal); N52.1 Erectile dysfunction due to diseases classified elsewhere; Z13.9 Encounter for screening, unspecified
CPT/HCPCS: 99214

== ENCOUNTER → 2023-03-12 09:45 | Outpatient (BNVA) | payer MEDICAID, SELFPAY | PROVIDERS: PCP Student in an Organized Health Care Education/Training Program; Visit Provider Nurse Practitioner Family | DX: E11.69 Type 2 diabetes mellitus with other specified complication (principal); N52.1 Erectile dysfunction due to diseases classified elsewhere | CPT/HCPCS: 81003; 99212 ==

== ENCOUNTER 2023-03-15 07:28 | Outpatient (REF) | payer MEDICAID, SELFPAY ==
--- NOTE | ~2023-03-15 | US_ITS ---
EXAMINATION: NONINVASIVE ASSESSMENT OF THE ARTERIES OF BOTH LOWER EXTREMITIES WITH PVR EXAM AND BILATERAL LOWER EXTREMITY DUPLEX Amber Hennessy MD CLINICAL INFORMATION: Peripheral vascular disease TECHNIQUE: Ankle pulse volume recordings, ankle pressure measurements and ankle brachial indices were obtained of the lower extremity arterial system bilaterally in addition to duplex Doppler techniques with wave form analysis and measurement of velocities in the common femoral, profunda femoral, superficial femoral, popliteal and tibial arteries. The study was performed only at rest. COMPARISON: Noninvasive arterial exam on 08/14/2022 FINDINGS: a) AT REST: RIGHT LE. The right ankle-brachial index is: 1.24 * >0.97-1.25 = normal - no significant arterial disease * 0.75-0.96 = mild peripheral arterial disease * 0.5-0.74 = moderate peripheral arterial disease * <0.50 = severe peripheral arterial disease 2. Right ankle pressure: Abnormal 3. Right ankle PVR waveform: Abnormal 4. Right direct duplex Doppler findings: Common femoral artery: 144 cm/s, Multiphasic Profunda femoris artery: 140 cm/s, Multiphasic Superficial femoral artery (proximal): 122 cm/s, monophasic, occluded just distal to the origin Superficial femoral artery (mid): 77 cm/s, monophasic, reconstituted Superficial femoral artery (distal): 47 cm/s, Multiphasic Proximal Popliteal artery: 88 cm/s, Multiphasic Mid posterior tibial artery: 60 cm/s, monophasic LEFT LE. The left ankle-brachial index is: 1.24 * >0.97-1.25 = normal - no significant arterial disease * 0.75-0.96 = mild peripheral arterial disease * 0.5-0.74 = moderate peripheral arterial disease * <0.50 = severe peripheral arterial disease 2. Left ankle pressure: Abnormal 3. Left ankle PVR waveform: Abnormal 4. Left direct duplex Doppler findings: Common femoral artery: 147 cm/s, Multiphasic Profunda femoris artery: 198 cm/s, Multiphasic Superficial femoral artery (proximal): 204 cm/s, Multiphasic (stent) Superficial femoral artery (mid): 81 cm/s, Multiphasic (stent) Superficial femoral artery (distal): 134 cm/s, Multiphasic (stent) Proximal Popliteal artery: 94 cm/s, Multiphasic Mid posterior tibial artery: 64 cm/s, Multiphasic US/US arterial duplex LE BI IMPRESSION: RIGHT LEG: Short segment occlusion of the proximal superficial femoral artery just distal to the its origin with reconstitution via collaterals of the mid superficial femoral artery. Atherosclerotic calcification results in elevated RE. LEFT LEG: Patent left superficial femoral artery stent. Atherosclerotic calcification resulting in elevated RE.
== END 2023-03-15 07:29 | disposition home or self-care (01) ==
LOC: HO.US 07:28
PROVIDERS: PCP Internal Medicine; Visit Provider Surgery Vascular Surgery
DX: I73.9 Peripheral vascular disease, unspecified (principal)
CPT/HCPCS: 93923; 93925

== ENCOUNTER 2023-04-17 10:11 | Outpatient (AMB) | payer MEDICAID, SELFPAY ==
--- NOTE | 2023-04-17 10:33 | MHC.OFFVIS ---
Intake Vital Signs 04/17/23 10:34 Height 5 ft 4 in Weight 196 lb 10.437 oz BMI 33.8 BP 136/76 Blood Pressure Location Rt brachial Position Sitting Pulse 74 Intake Visit Reasons: 6mnth f/u discuss colonoscopy Intake Note: Patient presents to in office visit today in follow up to discuss colonoscopy. CC: Patient denies having any concerns or GI symptoms today. Import Dispatcher Required: Yes Accompanied by: Self / Same As Patient Allergies No Known Allergies Allergy (Verified 05/01/23 08:55) HPI 6mnth f/u discuss colonoscopy HPI Details LAST VISIT Chronic idiopathic constipation Continue Senokot 2 tablets every evening. Patient can also take MiraLax daily. Will re-evaluate if he continues to be constipated will order Linzess IBS (irritable bowel syndrome) Postprandial abdominal bloating. Low FODMAP diet discussed with patient. List of food to avoid as well as list of food recommended discussed with patient. Status post colonoscopy Suboptimal prep repeat colonoscopy in 6-12 months. Patient denies any melena, hematochezia, unintentional weight loss or ribbon like stools. The Gastritis Continue pantoprazole 20 mg half an hour before breakfast and half an hour before dinner. Discussed with patient avoiding dietary triggers in late night snacking. Staying upright for minimal 3 hours after meals discussed with patient. I will send him for gastric emptying study. Patient does report to feel full after eating even small portions. I will see him in 6 months, sooner on as needed basis. Patient is agreeable to this plan and verbalizes understanding of instructions. He was given the opportunity to ask questions and all questions answered. ? Thank you for allowing me to participate in his care Plan Orders Orders NM gastric emptying study Today K21.9 - Gastro-esophageal reflux disease without esophagitis Medications Refilled polyethylene glycol 3350 (Miralax) 17 grams PO DAILY 510 grams 2RF TODAY'S VISIT: Patient is here today for follow-up and to discuss gastric emptying study results. Patient has severe gastroparesis most likely related to Trulicity. Patient reports that he is doing better. Last over 40 lb and states that he is feeling well. It appears that he has been put on Mounjaro in December and most likely this contribute to patient losing weight and such a good control with his blood sugar. His A1c have improved tremendously. Patient reports that Pantoprazole has been working for him and acid reflux symptoms have been controlled. Patient reports that he is moving his bowels well using MiraLax in the morning and senna at night time. Patient denies melena, hematochezia, unintentional weight loss or ribbon like stools. [facility] Medical History Painful arc syndrome of right shoulder Chronic idiopathic constipation Tubular adenoma Myocardial infarct, old Diabetes PVD (peripheral vascular disease) CAD (coronary artery disease) Family history of prostate cancer Scrotal swelling Elevated PSA Surgical History Hx of ligation of vein History of esophagogastroduodenoscopy (EGD) Hx of colonoscopy Hx of arthroscopic knee surgery History of surgery History of vascular surgery History of cardiac cath Family History Maternal Grandmother Diabetes Paternal Grandmother Diabetes Brother Diabetes Mother No problems noted. Father Diabetes Social History Alcohol intake: never Patient Tobacco Use Status: Former Tobacco user Quit Date: 2014 Years Smoked: 35+ Current occupational status: disabled Current occupation: right hand dominant Physical Exam Vital Signs: Last Vital Signs Pulse 74 04/17/23 10:34 BP 136/76 04/17/23 10:34 BMI result Body Mass Index 33.8 Results Reviewed Results Reviewed: GASTRIC EMPTYING STUDY 03/13/2023 FINDINGS: There is good visualization of activity in the stomach immediately post ingestion. As the study progresses, there is good clearance of activity from the stomach and visualization of progressively increasing small bowel activity. By the end of the study, there is almost no retention noted in the stomach. Retention in the stomach at each time interval was: 1 hour 106% (normal 37%-90%) 2 hours 106% (normal 30%-60%) 3 hours 106% 4 hours 106% (normal 0%-10%) NM/NM gastric emptying study IMPRESSION: Abnormal 4-hour solid food gastric emptying study. Assessment & Plan Assessment & Plan (1) Gastroparesis: Code(s): K31.84 - Gastroparesis (2) Chronic idiopathic constipation: Code(s): K59.04 - Chronic idiopathic constipation (3) Tubular adenoma: Code(s): D36.9 - Benign neoplasm, unspecified site (4) IBS (irritable bowel syndrome): Code(s): K58.9 - Irritable bowel syndrome without diarrhea Qualifiers: Irritable bowel syndrome type: with constipation Qualified Code(s): K58.1 - Irritable bowel syndrome with constipation (5) Gastritis: Code(s): K29.70 - Gastritis, unspecified, without bleeding Qualifiers: Gastritis type: other gastritis Chronicity: chronic Gastritis bleeding: without bleeding Qualified Code(s): K29.50 - Unspecified chronic gastritis without bleeding Plan Recommendation was made for patient to stop Trulicity. He is taking Mounjaro and he should not be on both medications. Severe gastroparesis is found. Occasional postprandial abdominal bloating, will check for pancreatic insufficiency. History of pancreatitis in the past will check lipase, check liver panel, history of elevated transaminase in the past. Patient will be sent for barium swallow. Continue current PPI does twice a day. Continue bowel regimen. Patient was encouraged to increase fluid intake and activity to promote better bowel motility. Patient will return in 2 months, sooner on as needed basis. Patient is agreeable to this plan and verbalizes understanding of instructions. He was given the opportunity to ask questions and all questions answered. Thank you for allowing me to participate in his care Orders: Orders Vitamin B12 and Folate 04/17/23 K31.84 - Gastroparesis Pancreatic Elastase-1 04/17/23 K3.84 - Gastroparesis Lipase 04/17/23 K3.84 - Gastroparesis Liver Panel 04/17/23 K3.84 - Gastroparesis Vitamin D 25-OH (D2 and D3) 04/17/23 K3.84 - Gastroparesis [place] barium swallow 04/17/23 R13.10 - Dysphagia, unspecified Coding Level of Care Code Est Pt Level 4 (82503) Diagnoses Gastroparesis K31.84 Chronic idiopathic constipation K59.04 Tubular adenoma D36.9 Irritable bowel syndrome with constipation K58.1 Irritable bowel syndrome type: with constipation Other chronic gastritis without hemorrhage K29.50 Gastritis type: other gastritis Chronicity: chronic Gastritis bleeding: without bleeding Time Spent (min) 35 Comment 20 minutes spent with patient and additional 15 minutes spent reviewing his records
[2023-04-17 10:34] VITALS: BP 136/76; PULSE 74; BMI 33.8
== END 2023-04-17 12:54 | disposition home or self-care (01) ==
PROVIDERS: PCP Student in an Organized Health Care Education/Training Program; Visit Provider Nurse Practitioner Family
DX: K31.84 Gastroparesis (principal); K59.04 Chronic idiopathic constipation; D36.9 Benign neoplasm, unspecified site; K58.1 Irritable bowel syndrome with constipation; K29.50 Unspecified chronic gastritis without bleeding
CPT/HCPCS: 99214

== ENCOUNTER → 2023-04-17 10:11 | Outpatient (BNVA) | payer MEDICAID, SELFPAY | PROVIDERS: PCP Student in an Organized Health Care Education/Training Program; Visit Provider Nurse Practitioner Family | DX: K31.84 Gastroparesis (principal); K59.04 Chronic idiopathic constipation; K58.1 Irritable bowel syndrome with constipation; K29.50 Unspecified chronic gastritis without bleeding; D36.9 Benign neoplasm, unspecified site | CPT/HCPCS: 99212 ==

== ENCOUNTER 2023-05-01 08:43 | Outpatient (AMB) | payer MEDICAID, SELFPAY ==
--- NOTE | 2023-05-01 08:41 | A.OFFVIS_ITS ---
Intake Intake Visit Reasons: fallow up US Intake Note: pt herefor a 6 months fallow up s/p arterial 03/15/23hxof left leg angio-sfa angioplasty 08/24/21 Pt states he has no new issues to discuss today Network Systems Analyst Required: Yes Network Systems Analyst Name: greg richadrson Information Interpreted: non-clinical & clinical Allergies No Known Allergies Allergy (Verified 05/01/23 08:55) HPI fallow up US HPI Details Very pleasant 62-year-old gentleman presents for follow-up with noninvasive arterial testing. He has undergone previous lower extremity endovascular intervention back in 2021. He reports he is doing fairly well. He can easily walk 2-3 blocks with no difficulty. Of note he is a nonsmoker at the current time. He is being maintained on aspirin and high-dose statin. He now presents for routine surveillance follow-up with noninvasive arterial testing. [facility] Medical History Painful arc syndrome of right shoulder Chronic idiopathic constipation Tubular adenoma Myocardial infarct, old Diabetes PVD (peripheral vascular disease) CAD (coronary artery disease) Family history of prostate cancer Scrotal swelling Elevated PSA Surgical History Hx of ligation of vein History of esophagogastroduodenoscopy (EGD) Hx of colonoscopy Hx of arthroscopic knee surgery History of surgery History of vascular surgery History of cardiac cath Family History Maternal Grandmother Diabetes Paternal Grandmother Diabetes Brother Diabetes Mother No problems noted. Father Diabetes Social History Alcohol intake: never Patient Tobacco Use Status: Former Tobacco user Quit Date: 2014 Years Smoked: 35+ Current occupational status: disabled Current occupation: right hand dominant Review of Systems Const All systems reviewed & are unremarkable except as noted in HPI and below Reports no additional complaints ENT Reports Normal hearing present Card Denies chest pain, Denies chest pain at rest, Denies chest pain with activity and Denies pedal edema Resp Denies cough GI Denies abdominal pain Musc Denies abnormal gait, Denies muscle cramps and Denies radiating pain into limb Skin/Breast Denies skin ulcer and Denies wounds Neuro Reports Normal hearing present and Denies abnormal gait Psych Reports no additional complaints Physical Exam Const General: cooperative, healthy appearing and comfortable Orientation/consciousness: oriented to person, oriented to place and oriented to time HEENT Head: Yes normal to inspection Neck Neck: Yes normal visual inspection Carotids: no bruits Chest Chest palpation & inspection: normal inspection of the chest Resp Effort & Inspection: normal respiratory effort and able to speak in complete sentences Auscultation: clear to auscultation bilaterally, no crackles, no rales, no rhonchi and no wheezes Cardio Other: Bilateral DP signals Rate: regular rate Rhythm: regular rhythm Heart sounds: S1 normal heart sound present and S2 normal heart sound present Bruits: no carotid bruits Peripheral pulses: Peripheral pulses 2+ throughout GI Inspection: Yes normal to inspection Skin Wounds: no wounds Hair: normal Neuro General: oriented to person, oriented to place and oriented to time Cranial nerves: Yes CN's II-XII intact bilaterally and Yes Normal hearing present Cognition (Neuro): normal cognition Motor exam (neuro): 5/5 motor strength present throughout Extrem Other: venous exam: No significant superficial varicosities or spider telangiectasias, minimal edema General: No clubbing, No cyanosis and No edema Psych Appearance: grossly normal Mental Status: mental status grossly normal Speech and movement: Normal speech and movement present Results Reviewed Results Reviewed: Lower extremity arterial ultrasound dated 03/15/2023 demonstrates RE on the right of 1.24 and on the left of 1.24 as well. Both demonstrate good multi phasic flow. In addition the left SFA stent appears to be patent. Written report and images were reviewed. Assessment & Plan Assessment & Plan (1) PVD (peripheral vascular disease): Comment: 08/24/2021 - plasty of left SFA for in stent Re-stenosis with DCB 03/08/2022 - diagnostic angiogram Code(s): I73.9 - Peripheral vascular disease, unspecified Plan: In short patient has stable claudication. I did review the pathophysiology of peripheral vascular disease with the patient. In addition we did discuss routine conservative measures including a healthy diet and the importance of exercise and ambulation. We did discuss risk factor modification. The patient will continue to to follow-up with surveillance follow-up in approximately 1 year. Thank you for allowing us to participate in this patient's care. If there are any questions or concerns please do not hesitate to contact us. Orders: Orders US arterial duplex LE BI 364 Days I73.9 - Peripheral vascular disease, unspecified Coding Level of Care Code Est Pt Level 4 (69038) Diagnoses PVD (peripheral vascular disease) I73.9
== END 2023-05-01 09:20 | disposition home or self-care (01) ==
PROVIDERS: PCP Student in an Organized Health Care Education/Training Program; Visit Provider Surgery Vascular Surgery
DX: I73.9 Peripheral vascular disease, unspecified (principal)
CPT/HCPCS: 99213

== ENCOUNTER → 2023-05-01 08:43 | Outpatient (BNVA) | payer MEDICAID, SELFPAY | PROVIDERS: PCP Student in an Organized Health Care Education/Training Program; Visit Provider Surgery Vascular Surgery | DX: I73.9 Peripheral vascular disease, unspecified (principal); Z79.82 Long term (current) use of aspirin; Z79.899 Other long term (current) drug therapy | CPT/HCPCS: 99212 ==

== ENCOUNTER 2023-06-07 07:33 | Outpatient (REF) | payer MEDICAID, SELFPAY | END 2023-06-07 07:34 | disposition home or self-care (01) | LOC: HO.US 07:33 | PROVIDERS: PCP Internal Medicine; Visit Provider Surgery Vascular Surgery | DX: Z13.89 Encounter for screening for other disorder (principal) ==

== ENCOUNTER 2023-06-12 08:55 | Outpatient (REF) | payer MEDICAID, SELFPAY ==
[2023-06-12 09:49] LABS: Estimated Average Glucose 114 mg/dL; Hemoglobin A1c % 5.6 % (<6.0)
[2023-06-16 16:03] LABS: Testosterone, Free 53.3 pg/mL (35.0-155.0); Testosterone, Total 395 ng/dL (250-1100)
== END 2023-06-12 08:56 | disposition home or self-care (01) ==
LOC: HO.LAB 08:55
PROVIDERS: PCP Internal Medicine; Visit Provider Nurse Practitioner Family
DX: E11.69 Type 2 diabetes mellitus with other specified complication (principal); N52.1 Erectile dysfunction due to diseases classified elsewhere
CPT/HCPCS: 36415; 83036; 84402; 84403

== ENCOUNTER 2023-06-13 12:05 | Outpatient (AMB) | payer MEDICAID, SELFPAY ==
[2023-06-13 12:56] VITALS: BP 130/60; PULSE 77; BMI 33.1
--- NOTE | 2023-06-13 12:56 | MHC.OFFVIS ---
Intake Vital Signs 06/13/23 12:56 Height 5 ft 4 in Weight 193 lb 1.999 oz BMI 33.1 BP 130/60 Blood Pressure Location Lt brachial Position Sitting Pulse 77 Pulse Source Pulse Oximeter Intake Visit Reasons: f/up Intake Note: f/up pt its feeling fine. 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 Concrete Pipe Making Machine Operator Name: [id number]/[email or web address] Accompanied by: Self / Same As Patient Allergies No Known Allergies Allergy (Verified 05/01/23 08:55) Medication List - Last Reconciled 06/13/23 by Bassam Ogden MD acetaminophen 1,000 mg PO Q6H PRN albuterol sulfate 5 mg inhalation Q4H amlodipine (Norvasc) 10 mg PO DAILY aspirin (Adult Low Dose Aspirin) 81 mg PO DAILY atorvastatin 80 mg PO DAILY blood sugar diagnostic (FreeStyle Lite Strips) As directed carvedilol 6.25 mg PO BID celecoxib 200 mg PO BID cholecalciferol (vitamin D3) 50 mcg PO QAM cilostazol 100 mg PO BID clopidogrel (Plavix) 75 mg PO DAILY docusate sodium 100 mg PO BEDTIME empagliflozin (Jardiance) 25 mg PO QAM famotidine (Pepcid) 20 mg PO BEDTIME fluticasone propionate 110 mcg/actuation (Flovent HFA) 2 puffs inhalation BID gabapentin 100 mg PO TID glucose (Dex4 Glucose) 4 grams PO Q15M PRN hydroxyzine HCl 25 mg PO BEDTIME PRN insulin glargine (Lantus Solostar U-100 Insulin) 40 units subcut QPM isosorbide mononitrate ER 60 mg PO QAM lancets (TRUEplus Lancets) As directed lisinopril 40 mg PO QAM pantoprazole 20 mg PO BID pen needle, diabetic (Pentips) As directed polyethylene glycol 3350 (Miralax) 17 grams PO DAILY risperidone 3 mg PO BEDTIME sennosides (Natural Senna Laxative) 17.2 mg (2 x 8.6 mg) PO BEDTIME tadalafil (Cialis) 5 mg PO DAILY 90 days tirzepatide (Mounjaro) mg subcut QWEEK tramadol 50 mg PO Q8H HPI HPI Comments History of Present Illness Details 62-year-old gentleman who is referred for preoperative cardiovascular risk assessment. He has background history of coronary artery disease with multiple stents placed while he was in [facility]. He had workup done at [facility] previously and in 2016 he underwent cardiac catheterization when he presented with chest pain. Cardiac catheterization showed 90% stenosis in 2nd diagonal branch, 60% OM2 stenosis and moderate diffuse disease in the right coronary artery with mild InStent restenoses in the mid RCA. There is also a 60% stenosis noticed in the right posterior descending artery. He was medically managed at that stage. His echocardiography at that time showed normal biventricular function. Subsequent to that in 2017 he had Lexiscan which showed no fixed or reversible perfusion defect. He has been experiencing diarrhea for months. He has developed dehydration due to that. He has no shortness of breath. He does get chest discomfort and recently had chest tightness for which he took nitroglycerin. He said symptoms were similar to his pre PCI chest discomfort. He underwent Lexiscan which showed fixed basal to mid inferior defect and t.i.d.. He was taken for diagnostic angiogram where we noticed occluded mid right coronary artery with [id number] collaterals and 50% 2nd diagonal stenosis. We decided to medically manage him. He was advised to proceed with endoscopy with intermediate risk. He returns and denies any chest discomfort shortness of breath. He had lower extremity bypass surgery before and is following with vascular surgery at [facility]. He wishes to see someone at [facility] and we will refer him. 06/03/2023: He returns for follow-up. He has been following with Dr. Whitney. He has seen Urology and was given a prescription for Cialis for erectile dysfunction. He also is on isosorbide mononitrate 60 mg daily. Denying any anginal symptoms. [facility] Medical History Painful arc syndrome of right shoulder Chronic idiopathic constipation Tubular adenoma Myocardial infarct, old Diabetes PVD (peripheral vascular disease) CAD (coronary artery disease) Family history of prostate cancer Scrotal swelling Elevated PSA Surgical History Hx of ligation of vein History of esophagogastroduodenoscopy (EGD) Hx of colonoscopy Hx of arthroscopic knee surgery History of surgery History of vascular surgery History of cardiac cath Family History Maternal Grandmother Diabetes Paternal Grandmother Diabetes Brother Diabetes Mother No problems noted. Father Diabetes Social History Alcohol intake: never Patient Tobacco Use Status: Former Tobacco user Quit Date: 2014 Years Smoked: 35+ Current occupational status: disabled Current occupation: right hand dominant Review of Systems Const Reports chills, Reports fatigue, Reports fever(s), Reports frequent falls, Reports weakness, Reports weight gain and Reports weight loss ENT Reports dizziness Card Reports chest pain, Reports leg edema, Reports lightheadedness, Reports palpitations, Reports dyspnea and Reports dyspnea on exertion Resp Reports cough, Reports dyspnea and Reports dyspnea on exertion GI Reports hematochezia Musc Reports abnormal gait, Reports muscle weakness, Reports numbness, Reports radiating pain into limb and Reports tingling Neuro Reports abnormal gait, Reports dizziness, Reports frequent falls, Reports numbness, Reports tingling and Reports weakness Endo Reports fatigue and Reports palpitations Physical Exam Vital Signs: Last Vital Signs Pulse 77 06/13/23 12:56 BP 130/60 06/13/23 12:56 BMI result Body Mass Index 33.1 GENERAL APPEARANCE: in no acute distress, pleasant. Obese. NECK: no carotid bruit, no jugular venous distention. SKIN: no suspicious lesions, warm and dry. HEART: no murmurs, regular rate and rhythm. LUNGS: clear to auscultation bilaterally. ABDOMEN: soft, nontender. EXTREMITIES: no edema. PERIPHERAL PULSES: equal. NEUROLOGIC: No gross deficits, AAO X 3 Assessment & Plan Assessment & Plan (1) CAD (coronary artery disease): Code(s): I25.10 - Atherosclerotic heart disease of [place] coronary artery without angina pectoris (2) Stable angina: Code(s): I20.89 - Other forms of angina pectoris (3) PVD (peripheral vascular disease): Comment: 08/24/2021 - plasty of left SFA for in stent Re-stenosis with DCB 03/08/2022 - diagnostic angiogram Code(s): I73.9 - Peripheral vascular disease, unspecified Plan 62 year gentleman who is here for follow-up. He has known history of CLINICAL ESTHETICIAN of right coronary artery with [id number] collaterals and moderate diagonal artery stenosis. Clinically stable and has no anginal symptoms currently. He has been given prescription for Cialis. It can not be taken with isosorbide mononitrate due to significant interaction. I am stopping the isosorbide mononitrate. We will see him back in few months. If his blood pressure starts rising then we need to titrate his carvedilol. He will see us back in 3 months. Thank you for allowing me to participate in the care of your patient. Please feel free to contact me if you have any questions. Coding Level of Care Code Est Pt Level 4 (64361) Diagnoses CAD (coronary artery disease) I25.10 Stable angina I20.89 PVD (peripheral vascular disease) I73.9
== END 2023-06-13 13:17 | disposition home or self-care (01) ==
PROVIDERS: PCP Internal Medicine; Referring Provider Internal Medicine; Visit Provider Internal Medicine Cardiovascular Disease
DX: I25.10 Atherosclerotic heart disease of native coronary artery without angina pectoris (principal); I20.89 Other forms of angina pectoris; I73.9 Peripheral vascular disease, unspecified
CPT/HCPCS: 99214

== ENCOUNTER → 2023-06-13 12:05 | Outpatient (BNVA) | payer MEDICAID, SELFPAY | PROVIDERS: PCP Internal Medicine; Visit Provider Internal Medicine Cardiovascular Disease | DX: I25.118 Atherosclerotic heart disease of native coronary artery with other forms of angina pectoris (principal); I73.9 Peripheral vascular disease, unspecified | CPT/HCPCS: 99212 ==

== ENCOUNTER 2023-06-27 08:37 | Outpatient (AMB) | payer MEDICAID, SELFPAY ==
--- NOTE | 2023-06-27 08:45 | A.OFFVIS_ITS ---
Intake Intake Visit Reasons: 3m follow up(set) Intake Note: Patient presents for follow up visit for Erectile Dysfunction Total Testosterone: 395 Free Testosterone: 53.3 HGB a1c: 5.6 Urology Medications: Cialis Blood Thinner: None Sack Cleaning Hand Required: Yes Sack Cleaning Hand Name: JOSH GARZALEX Accompanied by: Self / Same As Patient Allergies No Known Allergies Allergy (Verified 06/27/23 09:17) Medication List - Last Reconciled 06/27/23 by OLAF Nelson acetaminophen 1,000 mg PO Q6H PRN albuterol sulfate 5 mg inhalation Q4H amlodipine (Norvasc) 10 mg PO DAILY aspirin (Adult Low Dose Aspirin) 81 mg PO DAILY atorvastatin 80 mg PO DAILY blood sugar diagnostic (FreeStyle Lite Strips) As directed carvedilol 6.25 mg PO BID celecoxib 200 mg PO BID cholecalciferol (vitamin D3) 50 mcg PO QAM cilostazol 100 mg PO BID clopidogrel (Plavix) 75 mg PO DAILY docusate sodium 100 mg PO BEDTIME empagliflozin (Jardiance) 25 mg PO QAM famotidine (Pepcid) 20 mg PO BEDTIME fluticasone propionate 110 mcg/actuation (Flovent HFA) 2 puffs inhalation BID gabapentin 100 mg PO TID glucose (Dex4 Glucose) 4 grams PO Q15M PRN hydroxyzine HCl 25 mg PO BEDTIME PRN insulin glargine (Lantus Solostar U-100 Insulin) 40 units subcut QPM lancets (TRUEplus Lancets) As directed lisinopril 40 mg PO QAM pantoprazole 20 mg PO BID pen needle, diabetic (Pentips) As directed polyethylene glycol 3350 (Miralax) 17 grams PO DAILY risperidone 3 mg PO BEDTIME sennosides (Natural Senna Laxative) 17.2 mg (2 x 8.6 mg) PO BEDTIME tadalafil (Cialis) 5 mg PO DAILY 90 days tirzepatide (Mounjaro) mg subcut QWEEK tramadol 50 mg PO Q8H HPI HPI Comments History of Present Illness Details Osvaldo is a pleasant 62-year-old Upper Sorbian speaking male patient of Dr Tinajero. He has a past medical history of chronic idiopathic constipation, [place], diabetes, PVD, CAD, and elevated PSA. He presents to the office today for follow-up of his ED and elevated PSA. Of note, patient was previously seen approximately 3 months ago at which time he was started on low-dose Cialis and testosterone levels were ordered for further assessment evaluation. These results reviewed with the patient today. Testosterone 06/20--395 Free Tesosterone 53.3%. In discussion with the patient today reports having followed up with car diology regarding Imdur and erectile dysfunction medications. He has since seen cardiology and Imdur has been discontinued. He reports noting somewhat improvement in his erections with 5 mg of Cialis daily however continues to experience issues with his erections. Discussed at length potential causes for erectile dysfunction. Discussed daily dosing with as needed dosing prior to sexual demand. When asked he does report sexual desire. Discussed at length importance of managing diabetes for improvement in erectile dysfunction as well as for overall health and well being. 06/20 A1c 5.6. He otherwise denies any bothersome urinary issues. When asked he denies urinary urgency, urinary frequency, incontinence, nocturia, hematuria, dysuria, foul smelling urine, changes to urinary stream, flank pain, fever, and or chills. He is happy with his current voiding parameters. In office urinalysis results reviewed with the patient today. In review of patient's chart it appears last PSA 07/16--0.2. Discussed obtaining redraw of PSA as patient with a history of elevated PSA and last PSA 2018. [facility] Medical History Painful arc syndrome of right shoulder Chronic idiopathic constipation Tubular adenoma Myocardial infarct, old Diabetes PVD (peripheral vascular disease) CAD (coronary artery disease) Family history of prostate cancer Scrotal swelling Elevated PSA Surgical History Hx of ligation of vein History of esophagogastroduodenoscopy (EGD) Hx of colonoscopy Hx of arthroscopic knee surgery History of surgery History of vascular surgery History of cardiac cath Family History Maternal Grandmother Diabetes Paternal Grandmother Diabetes Brother Diabetes Mother No problems noted. Father Diabetes Social History Alcohol intake: never Patient Tobacco Use Status: Former Tobacco user Quit Date: 2014 Years Smoked: 35+ Current occupational status: disabled Current occupation: right hand dominant Review of Systems Const Reports as per HPI Eyes Reports no additional complaints ENT Reports no additional complaints Card Reports as per [facility] Resp Reports no additional complaints GI Reports as per HPI Reports as per HPI Musc Reports as per HPI Neuro Reports no additional complaints Psych Reports no additional complaints Endo Reports as per HPI Shan/Lymph Reports no additional complaints Aller/Immun Reports no additional complaints Physical Exam Const General: cooperative, healthy appearing, comfortable, no acute distress, well developed, alert and awake Nutritional Appearance: overweight Orientation/consciousness: patient oriented x3 Limitations: no limitations HEENT Head: Yes normal to inspection, Yes normocephalic and Yes atraumatic Ears: hearing grossly normal bilaterally Eyes General: appearance normal, both eyes and all related structures Neck Neck: Yes normal visual inspection and Yes trachea midline Chest Chest palpation & inspection: normal inspection of the chest Resp Effort & Inspection: normal respiratory effort and able to speak in complete sentences Cardio Rate: regular rate GI Inspection: Yes normal to inspection General: Yes no CVA tenderness Back/Spine/Pelvis Back: no CVA tenderness Skin General skin exam: no rashes or lesions noted Neuro General: patient oriented x3 Extrem General: Yes normal to inspection Psych Appearance: grossly normal and well kempt Mental Status: mental status grossly normal Speech and movement: Normal speech and movement present and Clear speech present Affect: normal affect Attitude: cooperative Thought process: Normal thought process present Thought content: Normal thought content present Insight: Fair insight present (Psych) Judgement: Fair judgement present (Psych) Results AMB Urinalysis, Automated UA Leukoctes 0 Maureen/uL Last Edit by Kylah Manriquez on 06/27/23 09:00 UA Nitrite Negative Last Edit by Qumasadele Manriquez on 06/27/23 09:00 UA Urobilinogen 0.2 mg/dL Last Edit by Dep-Xplora Declan on 06/27/23 09:00 UA Protein 30 mg/dL Last Edit by Wireless Techanitra Manriquez on 06/27/23 09:00 UA pH 6.0 Last Edit by Kylah Manriquez on 06/27/23 09:00 UA Blood 0 Dhiraj/uL Last Edit by Qumasadele Manriquez on 06/27/23 09:00 UA Specific [place] 1.015 Last Edit by Kylah Esparzaarvin on 06/27/23 09:00 UA Ketone Negative Last Edit by Jose Angelmercyadele Esparzaarvin on 06/27/23 09:00 UA Bilirubin 0 mg/dL Last Edit by Jose Angelmercyadele Esparzaarvin on 06/27/23 09:00 UA Glucose 1000 mg/dL Last Edit by Kylah Manriquez on 06/27/23 09:00 Results Reviewed Results Reviewed: Laboratory Last Values Urine pH (Auto) 6.0 06/27/23 08:57 Specific [place] (Auto) 1.015 06/27/23 08:57 Urine Protein (Auto) 30 mg/dL 06/27/23 08:57 Glucose (UA)(Auto) 1000 mg/dL 06/27/23 08:57 Urine Ketones (Auto) Negative 06/27/23 08:57 Urine Blood (Auto) 0 Dhiraj/uL 06/27/23 08:57 Urine Nitrite (Auto) Negative 06/27/23 08:57 Urine Bilirubin (Auto) 0 mg/dL 06/27/23 08:57 Urine Urobilinogen (Auto) 0.2 mg/dL 06/27/23 08:57 Leukocyte Esterase (Auto) 0 Maureen/uL 06/27/23 08:57 Assessment & Plan Assessment & Plan (1) Erectile dysfunction associated with type 2 diabetes mellitus: Code(s): E11.69 - Type 2 diabetes mellitus with other specified complication; N52.1 - Erectile dysfunction due to diseases classified elsewhere Plan In office urinalysis results reviewed with the patient today; as noted above. Discussed at length potential causes for erectile dysfunction patient is experiencing. Discussed and stressed the importance of managing diabetes for improvement in ED as well as overall health and well-being. Discussed lifestyle modifications to assist with erectile dysfunction. Continue low-dose Cialis 5 mg daily as discussed and prescribed; refill provided On demand dosing prescription provided Will obtain PSA for further assessment evaluation. Patient denies any bothersome urinary issues at this time. Patient reports be happy with current voiding parameters. Follow-up in 3 months with labs to be completed prior; or sooner with any issues, concerns, and or questions. Orders: Orders AMB Urinalysis Automated Today Z13.9 - Encounter for screening, unspecified Prostate Specific Antigen Today R97.20 - Elevated prostate specific antigen [PSA] Medications: New tadalafil (Cialis) administer approximately 30min before sexual activity; do not use more than 1 dose per 24hrs [id number] [facility] [id number] Member [id number] 20 mg PO DAILY PRN 30 tabs 0RF sexual activity 90 days Refilled tadalafil (Cialis) BIN [id number] [facility] Group [id number] 5 mg PO DAILY 90 tabs 2RF 90 days Patient Instructions: The patient had an opportunity to ask questions regarding the treatment plan. All questions were answered. Physical exam, labs, and imaging were discussed and reviewed in detail. As well as risks, benefits, and discussion of treatment choices. No major barriers to understanding were identified. The patient expressed understanding and agreement with the above treatment plan. The patient was made aware they should contact our office by phone for worsening of their current condition, the appearance of new symptoms, or with any questions or concerns. Compliance is encouraged with any medications and follow up testing that is ordered. It is a privilege to be allowed the opportunity to participate in? your urological care.? Again, if you have any questions or concerns If you have any questions or concerns please do not hesitate to contact me. The office is [phone]. This note is constructed using voice recognition software. While every effort has been made to ensure accuracy dish network installer errors may have been included. Yours sincerely, OLAF Nelson Coding Level of Care Code Est Pt Level 4 (59989) Diagnoses Erectile dysfunction associated with type 2 diabetes mellitus E11.69; N52.1
== END 2023-06-27 09:30 | disposition home or self-care (01) ==
PROVIDERS: PCP Student in an Organized Health Care Education/Training Program; Visit Provider Nurse Practitioner Family
DX: E11.69 Type 2 diabetes mellitus with other specified complication (principal); N52.1 Erectile dysfunction due to diseases classified elsewhere; Z13.9 Encounter for screening, unspecified
CPT/HCPCS: 99214

== ENCOUNTER → 2023-06-27 08:37 | Outpatient (BNVA) | payer MEDICAID, SELFPAY | PROVIDERS: PCP Student in an Organized Health Care Education/Training Program; Visit Provider Nurse Practitioner Family | DX: E11.69 Type 2 diabetes mellitus with other specified complication (principal); N52.1 Erectile dysfunction due to diseases classified elsewhere; Z79.899 Other long term (current) drug therapy | CPT/HCPCS: 81003; 99212 ==

== ENCOUNTER 2023-06-29 13:02 | Outpatient (AMB) | payer MEDICAID, SELFPAY ==
--- NOTE | 2023-06-29 13:04 | MHC.OFFVIS ---
Intake Vital Signs 06/29/23 13:12 Height 5 ft 4 in Weight 194 lb BMI 33.3 BP 142/76 H Blood Pressure Location Lt brachial Position Sitting Respiration 16 Pulse 74 Pulse Source Pulse Oximeter Pulse Oximetry (%) 98 Oxygen Delivery Method Room Air Intake Visit Reasons: Follow Up/Back Pain/ confirmed CE Allergies No Known Allergies Allergy (Verified 06/29/23 13:12) HPI HPI Comments History of Present Illness Details Patient presents the office today for follow-up right shoulder pain. Underwent right intra-articular steroid injection 03/09/2023. He reports no improvement in his symptoms after that injection. Previously underwent diagnostic right suprascapular nerve block with less than 10% pain relief in the hours following. He has followed up with orthopedics and told not candidate for surgery though he does not understand why. Pain today is rated as 10 in 10, limited range of motion in all planes with significant pain increase with any use of the right arm. Patient states pain is significantly worse at night, he has not able to sleep due to the pain. He is looking for anything we can do to help provide him some pain relief. Prior: Patient presents Right Diagnostic Suprascapular nerve block on 12/22/22 Dr. Nicholas. Patient reports less than 10% pain relief for one day in his chronic right shoulder pain without any improvement in his functioning, ADLs, range of motion or sleep. Unfortunately, patient is not a candidate for a Sprint trial. He is not willing to undergo a repeat diagnostic medial branch block injections in order to establish reproducible response to treatment. Patient will be referred back to Orthopedics for further evaluation. Denies any recent cough, cold, infection, fever or other significant changes in medical history since last office visit. Past Procedures: 12/22/22: Right Diagnostic Suprascapular nerve block-10% for <24 hours PRIOR: Patient is a pleasant 62 years old Indian speaking male with history of CAD, diabetes, old CT, chronic right shoulder pain and PVD, presents today for initial evaluation for right shoulder pain. He reports having pain in his right shoulder for about 5 years now. Denies any recent injury, trauma, or falls. Pain is most severe with overhead activities and at night. He cannot sleep on his right side. Patient has been getting cortisone injections and PT in the past with mild relief but no relief with most recent shoulder cortisone injection on 09/28/22. He is interested to undergo diagnostic nerve blocks for potential Sprint PNS trial. However, if Sprint trial is not effective in managing his pain, he is willing to undergo surgical option. Per Orthopedics, patient is not a good candidate for surgery due to diabetes with CAD and PVD on Plavix. Right shoulder xray and MRI imaging are noted below. Location Right anterior shoulder Duration Chronic pain for ~5 years, progressively getting worse over the past year Characteristics of symptom or complaint Dull, sore, hurting, aching, heavy, spreading, radiating, piercing Aggravating or associated factors Movements, overhead reaches Relieving factors Tramadol, Cymbalta, acetaminophen, celebrex Treatment Physical therapy, cortisone injections- last one 2 months ago. [facility] Medical History Painful arc syndrome of right shoulder Chronic idiopathic constipation Tubular adenoma Myocardial infarct, old Diabetes PVD (peripheral vascular disease) CAD (coronary artery disease) Family history of prostate cancer Scrotal swelling Elevated PSA Surgical History Hx of ligation of vein History of esophagogastroduodenoscopy (EGD) Hx of colonoscopy Hx of arthroscopic knee surgery History of surgery History of vascular surgery History of cardiac cath Family History Maternal Grandmother Diabetes Paternal Grandmother Diabetes Brother Diabetes Mother No problems noted. Father Diabetes Social History Alcohol intake: never Patient Tobacco Use Status: Former Tobacco user Quit Date: 2014 Years Smoked: 35+ Current occupational status: disabled Current occupation: right hand dominant Review of Systems Const All systems reviewed & are unremarkable except as noted in HPI and below Physical Exam Vital Signs: Last Vital Signs Pulse 74 06/29/23 13:12 Resp 16 06/29/23 13:12 BP 142/76 H 06/29/23 13:12 Pulse Ox 98 06/29/23 13:12 Oxygen Delivery Method Room Air 06/29/23 13:12 BMI result Body Mass Index 33.3 General: awake, alert, oriented. Answers questions appropriately. Fully engaged in examination. Skin: warm, dry, intact HEENT: Normocephalic. Hearing intact. Cardiac: External chest normal in appearance. Respiratory: No cough, audible wheezing or stridor. Abdomen: without gross distension. MS: No obvious swelling or deformities. Right upper extremity limited range of motion in all planes Unable to perform behind the back reach Pain with all range of motion Neurological: Oriented to person, place, time and situation. Thought process intact. No gait abnormalities appreciated. Psychiatric: Appropriate mood and affect. Good judgment and insight. Assessment & Plan Assessment & Plan (1) Painful arc syndrome of right shoulder: Code(s): M75.101 - Unspecified rotator cuff tear or rupture of right shoulder, not specified as traumatic (2) Chronic right shoulder pain: Code(s): M25.511 - Pain in right shoulder; G89.29 - Other chronic pain Plan Patient presents the office today for follow-up right shoulder pain. Patient had intra-articular right shoulder steroid injection 4 months ago with no improvement in pain, function or mobility. Schedule for right diagnostic ultrasound-guided interscalene nerve block with local anesthetic, will need to hold his Plavix. If patient reports good relief from the diagnostic will plan for right interscalene Sprint PNS. All questions and concerns were answered, patient agrees to the plan. Follow-up after injection, sooner if needed. Coding Level of Care Code Est Pt Level 3 (88651) Diagnoses Painful arc syndrome of right shoulder M75.101 Chronic right shoulder pain M25.511; G89.29
[2023-06-29 13:12] VITALS: BP 142/76; PULSE 74; RESP 16; O2SAT 98; BMI 33.3
== END 2023-06-29 13:29 | disposition home or self-care (01) ==
PROVIDERS: PCP Student in an Organized Health Care Education/Training Program; Visit Provider Registered Nurse Emergency
DX: M75.101 Unspecified rotator cuff tear or rupture of right shoulder, not specified as traumatic (principal); M25.511 Pain in right shoulder; G89.29 Other chronic pain
CPT/HCPCS: 99213

== ENCOUNTER → 2023-06-29 13:02 | Outpatient (BNVA) | payer MEDICAID, SELFPAY | PROVIDERS: PCP Student in an Organized Health Care Education/Training Program; Visit Provider Registered Nurse Emergency | DX: M75.101 Unspecified rotator cuff tear or rupture of right shoulder, not specified as traumatic (principal); M25.511 Pain in right shoulder; G89.29 Other chronic pain | CPT/HCPCS: 99212 ==

== ENCOUNTER 2023-07-10 08:10 | Outpatient (REF) | payer MEDICAID, SELFPAY ==
--- NOTE | ~2023-07-10 | FL_ITS ---
EXAMINATION: XR FLUOROSCOPY BARIUM SWALLOW CLINICAL INFORMATION: Dysphagia COMPARISON: None TECHNIQUE: Fluoroscopic air contrast upper GI examination was performed utilizing standard techniques with thin and thick barium and effervescent granules. Numerous spot images were obtained. FINDINGS: There are aortic annular calcifications. There are bridging ventral osteophytes at C5-C6 with associated disc space narrowing of with mild apparent extrinsic compression on the upper esophagus (RF 1-2, image 16 of 100; see also RF 1-3, image 52 of 127). Lateral cine images of the oropharynx and hypopharynx demonstrate normal swallow mechanism with normal but overall incomplete epiglottic inversion. Normal-appearing soft palate elevation. There is mild ballooning of the hypopharynx, with premature spillover of contrast into the sub epiglottic space. There is trace laryngeal penetration with thick barium. This did not reach the true cords or subglottic region. Mild nasopharyngeal reflux present. Hypopharyngeal structures appear normal without evidence of mass or diverticulum. Mild persistent pooling of contrast noted in the piriform sinuses and vallecula which cleared upon subsequent swallows. There was no significant cricopharyngeal achalasia, although some overlap may exist with the above finding of possible extrinsic compression upper esophagus at C5-C6. Dual and single contrast images of the esophagus demonstrate a patulous caliber, but normal contour, and mucosal pattern. No evidence of stricture, mass, or ulcerations identified. Nonpropulsive tertiary contractions are noted throughout the esophagus No evidence of hiatus hernia identified. No significant gastroesophageal reflux was seen during the course of the examination and on reflux views. Mild smooth tapering of the GE junction may suggest a mild component of achalasia. Persistent barium within the gastric antrum noted at the end of the exam, suggesting gastroparesis. FLUOROSCOPY TIME: 4 minutes 16 seconds Number of Spot Images: 4 Number of Cine: 6 DOSE AREA PRODUCT: [id number] [id number] (microgray-meter squared) FL/FL barium swallow IMPRESSION: 1. Trace laryngeal penetration with thick barium with no subglottic aspiration. There was premature spillover of barium into the hypopharynx. 2. Bridging ventral osteophytes at C5-C6 may be causing mild compression of the most upper esophagus. This is at the same level of the cricopharyngeus muscle, so overlap may exist. Statistically this is more likely to represent [id number] cricopharyngeal achalasia. 3. There is ballooning of the hypopharynx, with persistent vallecular and piriform sinus pooling which cleared upon subsequent swallows. 4. Nonpropulsive tertiary contractions throughout the esophagus consistent with esophageal dysmotility. The esophagus is diffusely patulous, with a smooth mild apparent narrowing at the GE junction suggesting a mild component of achalasia. This is not definitive, and EGD may be of benefit for correlation. This procedure was performed by Rickie Bhakta PA-C, and supervised by Dr. Bartlett
== END 2023-07-10 08:11 | disposition home or self-care (01) ==
LOC: HO.XRAY 08:10
PROVIDERS: PCP Student in an Organized Health Care Education/Training Program; Visit Provider Nurse Practitioner Family
DX: R13.10 Dysphagia, unspecified (principal)
CPT/HCPCS: 74220

== ENCOUNTER → 2023-07-10 08:12 | Outpatient (BNV) | payer MEDICAID, SELFPAY | PROVIDERS: PCP Student in an Organized Health Care Education/Training Program; Visit Provider Radiology Diagnostic Radiology | DX: R13.10 Dysphagia, unspecified (principal) | CPT/HCPCS: 74221 ==

== ENCOUNTER 2023-07-12 16:03 | Emergency (ER) | payer MEDICAID, SELFPAY ==
--- NOTE | ~2023-07-12 | XR_ITS ---
EXAMINATION: XR RIBS, LEFT CLINICAL INFORMATION: Status post fall. Left rib pain. COMPARISON: 11/23/2021 TECHNIQUE: 3 views of the left ribs were obtained. FINDINGS: Lungs are well expanded. No consolidation or pleural effusion. Cardiac silhouette is within normal limits. No displaced left-sided rib fracture. XR/XR ribs LT min 3V w CXR1V IMPRESSION: No acute abnormality.
--- NOTE | ~2023-07-12 | CT_ITS ---
EXAMINATION: CT chest, abdomen and pelvis with IV contrast. CLINICAL INDICATIONS: Left chest wall pain, status post fall. Epigastric and left upper quadrant abdominal pain. Patient is on thinners. COMPARISON: CT abdominal runoff 08/11/2021. TECHNIQUE: 5 mm thin axial and reformatted 3 mm thin sagittal and coronal images of chest, abdomen and pelvis were obtained following IV 85 ml Omnipaque 350. This CT examination was performed using dose optimization technique as appropriate, variously including the following: Automated exposure control Adjustment of MA and/or KV according to patient size(this includes techniques or standardized protocols for targeted exams where dose is matched to indication/reason for exam; extremities or head. Use of iterative reconstruction techniques. CHEST: LUNGS: The lungs are well-expanded and clear of acute pneumonic process. There is a calcified 6 mm granuloma right lung base. Mediastinum: Thyroid lobes are symmetrical. The central trachea and the bronchi widely patent. There is good opacification of thoracic aortic arch and its branches without any aneurysmal disease dilatation or dissection. The heart size is normal. There is moderate coronary artery calcifications. No pericardial effusion seen. No abnormal size mediastinal or hilar lymph nodes seen. Pleura: There is no pleural effusion, thickening or calcification. Axilla: Small shotty lymph nodes seen in lingula. The chest wall is unremarkable. Osseous structures: There is no visible left or right rib fractures. The thoracic vertebrae are normal ABDOMEN AND PELVIS: Liver, ducts and gallbladder: The liver is normal size, contour and density. No focal lesion or intrahepatic ductal dilatation seen. The gallbladder is unremarkable. Spleen: Punctate calcification likely calcified granuloma. Otherwise spleen is unremarkable. Pancreas: Unremarkable. Adrenal glands: Unremarkable. Kidneys: Both kidneys are normal size, shape and position. There are bilateral nonenhancing renal cysts largest and mid to lower pole right kidney partially exophytic measures 1.4 cm Lymphovascular structures: The abdominal aorta is of normal caliber except for mild atherosclerosis. A left common iliac artery stent is noted. No retroperitoneal lymph nodes, mass or hematoma. GI tract: The stomach is distended with recently ingested food. The small bowel loops are normal caliber. Partially contrast opacified colon appears unremarkable. Appendix is normal caliber. No free air or free fluid seen. Abdominal wall: Soft tissue density seen within the umbilical tract with a tiny hernia. Pelvis: There is a residual barium within the sigmoid colon and rectum producing beam hardening artifacts. The urinary bladder is mildly distended and appears unremarkable. No free air or free fluid. No abnormal pelvic lymph nodes. No evidence of inguinal hernia. CT/CT abdomen pelvis w IV con IMPRESSION: No acute intra-abdominal abdominal process seen. Especially there is no abdominal wall or intra-abdominal hematoma. The lungs are clear without pneumothorax or effusion. There is no visible rib or vertebral fracture.
[2023-07-12 16:37] VITALS: BP 148/76; PULSE 72; RESP 18; TEMP 36.1; O2SAT 97; BMI 32.6
--- NOTE | 2023-07-12 16:39 | ED_ITS ---
HPI - General Adult General Chief complaint: Fall Stated complaint: fell, hit L rib area Time Seen by Provider: 07/12/23 17:07 Source: patient, RN notes reviewed and old records reviewed Mode of arrival: ambulatory History of Present Illness HPI narrative: 63-year-old [place]-speaking male with a past medical history of CAD on ASA/Plavix, diabetes, PVD, idiopathic constipation, presenting to the ED complaining of left rib pain s/p mechanical trip and fall off chair 3 hours [employer]. States was stepping up onto chair when lost balance falling onto left side, denies head trauma or LOC. reports increasing pain to left ribs, worse with movement and breathing. Denies nausea, vomiting, incontinence/retention, hematuria Related Data Home Medications Medication Instructions Recorded Confirmed albuterol sulfate 2.5 mg/0.5 mL 5 mg inhalation Q4H 11/11/20 06/13/23 solution for nebulization amlodipine 10 mg tablet (Norvasc) 10 mg PO DAILY 11/11/20 06/13/23 aspirin 81 mg tablet,delayed 81 mg PO DAILY 11/11/20 06/13/23 release (Adult Low Dose Aspirin) atorvastatin 80 mg tablet 80 mg PO DAILY 11/11/20 06/13/23 blood sugar diagnostic (FreeStyle #10 ea 11/11/20 06/22/21 Lite Strips) cilostazol 100 mg tablet 100 mg PO BID 11/11/20 06/13/23 clopidogrel 75 mg tablet (Plavix) 75 mg PO DAILY 11/11/20 06/13/23 glucose 4 gram chewable tablet 4 g PO Q15M PRN Hypoglycemia 11/11/20 06/13/23 (Dex4 Glucose) carvedilol 6.25 mg tablet 6.25 mg PO BID 07/12/21 06/13/23 gabapentin 300 mg capsule 100 mg PO TID 07/12/21 06/13/23 lancets 28 gauge (TRUEplus Lancets) #100 ea 07/12/21 lisinopril 40 mg tablet 40 mg PO QAM 07/12/21 06/13/23 pen needle, diabetic 32 gauge x #50 ea 07/12/21 5/32 (Pentips) risperidone 3 mg tablet 3 mg PO BEDTIME 07/12/21 06/13/23 fluticasone propionate 110 2 puff inhalation BID 08/31/21 06/13/23 mcg/actuation HFA aerosol inhaler (Flovent HFA) acetaminophen 500 mg tablet 1,000 mg PO Q6H PRN pain 12/05/22 06/13/23 cholecalciferol (vitamin D3) 50 50 mcg PO QAM 12/05/22 06/13/23 mcg (2,000 unit) capsule empagliflozin 25 mg tablet 25 mg PO QAM 12/29/22 06/13/23 (Jardiance) tirzepatide 5 mg/0.5 mL mg subcut QWEEK 12/29/22 06/13/23 subcutaneous pen injector (Mounjaro) insulin glargine 100 unit/mL (3 40 unit subcut QPM 04/17/23 06/13/23 mL) subcutaneous pen (Lantus Solostar U-100 Insulin) tramadol 50 mg tablet 50 mg PO Q8H 04/17/23 06/13/23 Previous Rx's Medication Instructions Recorded hydroxyzine HCl 25 mg tablet 25 mg PO BEDTIME PRN itching #14 10/10/21 tabs polyethylene glycol 3350 17 17 g PO DAILY #510 grams 10/17/22 gram/dose oral powder (Miralax) docusate sodium 100 mg capsule 100 mg PO BEDTIME #90 caps 02/27/23 famotidine 20 mg tablet (Pepcid) 20 mg PO BEDTIME #90 tabs 02/27/23 pantoprazole 20 mg tablet,delayed 20 mg PO BID #180 tabs 02/27/23 release celecoxib 200 mg capsule 200 mg PO BID #60 caps 03/23/23 sennosides 8.6 mg tablet (Natural 17.2 mg (2 x 8.6 mg) PO BEDTIME 06/22/23 Senna Laxative) constipation #180 tabs tadalafil 20 mg tablet (Cialis) 20 mg PO DAILY PRN sexual activity 06/27/23 90 days #30 tabs tadalafil 5 mg tablet (Cialis) 5 mg PO DAILY 90 days #90 tabs 06/27/23 Allergies Allergy/AdvReac Type Severity Reaction Status Date / Time No Known Allergies Allergy Verified 07/12/23 16:37 Review of Systems 2 Review of Systems: Constitutional: No Fever, No Chills ENT/Mouth: No Ear Pain, No Nasal Congestion, No sore throat, No Rhinorrhea, No Swallowing Difficulty Cardiovascular: + Chest Wall Pain, No SOB Respiratory: No Cough, No Sputum Gastrointestinal: No Nausea, No Vomiting, No Diarrhea, No Constipation, No Abdominal pain Genitourinary: No Dysuria, No Hematuria, No Urinary Incontinence/retention, No Flank Pain Musculoskeletal: No joint pain, No Myalgias, No Joint Swelling Skin: No Skin Lesions, No rash Neuro: No Weakness, No Numbness, No Paresthesias Yes all other systems are reviewed and are negative Constitutional: Constitutional: Reports as per [facility] Past Medical History Attestation statement: The following information was validated with the patient. Source: old records reviewed Medical History Painful arc syndrome of right shoulder Chronic idiopathic constipation Tubular adenoma Myocardial infarct, old Diabetes PVD (peripheral vascular disease) CAD (coronary artery disease) Family history of prostate cancer Scrotal swelling Elevated PSA Surgical History Hx of ligation of vein History of esophagogastroduodenoscopy (EGD) Hx of colonoscopy Hx of arthroscopic knee surgery History of surgery History of vascular surgery History of cardiac cath Family History Family History Maternal Grandmother Diabetes Paternal Grandmother Diabetes Brother Diabetes Mother No problems noted. Father Diabetes Social History Social History Alcohol intake: never Patient Tobacco Use Status: Former Tobacco user Quit Date: 2014 Years Smoked: 35+ Smoked in Last 30 Days: No Use of substances other than those prescribed or required for medical reasons: No Advance Directives: No Advance Directives Information Provided: No Current occupational status: disabled Current occupation: right hand dominant Physical Exam ED Vital Signs: Vital Signs - 24 hr 07/12/23 16:37 07/12/23 19:28 Temperature 97 F 98.1 F Pulse Rate 72 72 Respiratory Rate 18 16 Blood Pressure 148/76 H 144/72 H Pulse Oximetry 97 95 Oxygen Delivery Method Room Air Room Air BMI result Body Mass Index 32.6 Const General: cooperative, healthy appearing and no acute distress Orientation/consciousness: patient oriented x3 Limitations: no limitations HENMT Head: Yes normal to inspection and Yes atraumatic Ears: hearing grossly normal bilaterally General nose exam: Normal external nose present Face and sinus: Yes normal facial exam Eyes General: appearance normal, both eyes and all related structures EOM: EOMs intact bilaterally Neck Neck: Yes normal visual inspection and Yes no meningeal signs Chest Other: + left anterior lateral lower rib tenderness to palpation reproducing subjective complaint. No flail chest. No erythema or ecchymosis Chest palpation & inspection: normal inspection of the chest, no crepitus and tenderness Resp Effort & Inspection: normal respiratory effort and no respiratory distress Auscultation: clear to auscultation bilaterally Cardio Rate: regular rate Heart sounds: S1 normal heart sound present and S2 normal heart sound present GI Inspection: Yes normal to inspection Palpation (GI): Soft to palpation, Tenderness to palpation present (GI) in the epigastrum and in the LUQ; with no rebound tenderness, no guarding and not rigid General: Yes no CVA tenderness Back/Spine/Pelvis Other: No midline cervical/thoracic/lumbar spinous tenderness/step-off or deformity Back: no CVA tenderness Skin Rashes: no rashes Wounds: no wounds Neuro General: patient oriented x3, tone normal and no meningeal signs Cranial nerves: Yes CN's II-XII intact bilaterally Gait exam (Neuro): Normal gait present Extrem General: Yes normal to inspection Course Course Course Narrative: This is a rapid medical exam: Additional HPI, ROS, PE not included below will be deferred to primary provider. Patient is a 63-year-old [place] speaking male presenting to the ED with complaint of left rib pain after a trip and fall 3 hours ago. Denies head strike or loss of consciousness. Plan: x-ray XR ribs LT min 3V w CXR1V IMPRESSION: No acute abnormality. -no leukocytosis. H/H stable. Labs otherwise reassuring -UA noninfected, no blood -1900--ED care transferred to [facility] pending CT chest/abdomen/pelvis and dispo per results Reevaluation(s) Reevaluation #1: CT/CT chest w IV con IMPRESSION: No acute intra-abdominal abdominal process seen. Especially there is no abdominal wall or intra-abdominal hematoma. The lungs are clear without pneumothorax or effusion. There is no visible rib or vertebral fracture. Symptoms most consistent with contusion of the ribs, he is prescribed tramadol and Celebrex, advised to also add Tylenol, discussed bracing with movement deep inspirations and cough, and use of incentive spirometer. Advised outpatient follow-up with primary care provider. Discussed worrisome signs and symptoms that would warrant re-evaluation emergency department. All questions answered. Stable for discharge. Time: 21:28 Medications Administered Discontinued Medications Generic Name Dose Route Start Last Admin Trade Name Zhen PRN Reason Stop Dose Admin Iohexol 100 ml 07/12/23 18:14 07/12/23 18:14 Iohexol 350 Mg/Ml 100 Ml Infus..Btl IV 07/12/23 18:15 85 ml ONCE ONE Administration Morphine Sulfate 2 mg 07/12/23 17:31 07/12/23 17:47 Morphine Sulfate 2 Mg/Ml Cartridge IVPUSH 07/12/23 17:32 2 mg ONCE ONE Administration Protocol Medical Decision Making Medical Decision Making MDM Narrative: 63-year-old [place]-speaking male with a past medical history of CAD on ASA/Plavix, diabetes, PVD, idiopathic constipation, presenting to the ED complaining of left rib pain s/p mechanical trip and fall off chair 3 hours [employer]. On exam vital signs stable, NAD, appears uncomfortable, physical exam as above with reproducible left anterior lateral and epigastric/LUQ tenderness to palpation. No flail chest. No ecchymosis or evidence of trauma. No midline spinous tenderness throughout. Concern for rib fracture vs contusion vs splenic injury vs intra-abdominal/intrathoracic bleeding/hematoma Plan: Rib x-ray ordered in triage, labs, UA, CT chest/abdomen/pelvis, pain control Please refer to course for remaining clinical decision making, interpretation of labs/imaging results, and discussions with consultants and/or family members. Differential Diagnosis Differential Diagnoses: The differential diagnosis associated with the presentation includes As above Admission/Observation Consideration of admission/observation: Escalation of care including admission/observation considered Lab Data [facility] Lab Attestation statement: I reviewed the patient's lab results. 07/12/23 17:41 07/12/23 17:41 Labs: Lab Results 07/12/23 07/12/23 Range/Units 17:41 17:42 WBC 7.0 (4.8-10.8) X10*3/uL RBC 4.64 (4.60-5.80) X10*6/uL Hgb 13.2 L (14.0-18.0) g/dl Hct 39.2 L (42.0-52.0) % MCV 84.5 (80.0-98.0) fL MCH 28.4 (27.0-33.0) pg MCHC 33.7 (31.0-36.0) g/dl RDW 14.2 (11.0-16.0) % Plt Count 178 (160-400) X10*3/uL MPV 9.9 (9.4-12.4) fL Immature Gran % (Auto) 0.4 (0.0-0.4) % Neut % (Auto) 52.2 (45-73) % Lymph % (Auto) 34.6 (20-40) % Marshall % (Auto) 8.0 (2-11) % Eos % (Auto) 4.2 H (0-4) % Baso % (Auto) 0.6 (0-2) % Lymph # (Auto) 2.4 (1.2-4.9) X10*3/uL Marshall # (Auto) 0.6 (0.1-1.2) X10*3/uL Eos # (Auto) 0.3 (0.0-0.4) X10*3/uL Baso # (Auto) 0.0 (0.0-0.2) X10*3/uL Abs Immat Gran (auto) 0.03 (0.00-0.03) X10*3/uL Absolute Neuts (auto) 3.6 (2.0-8.3) x10*3/uL Absolute Nucleated RBC 0.000 (0.0-0.012) X10*3/uL Nucleated RBC % (auto) 0.0 (0.0-0.2) /100WBC PT 11.7 (11.1-13.3) SEC INR 1.0 (0.9-1.1) Sodium 142 (135-145) mmol/L Potassium 3.8 (3.3-5.1) mmol/L Chloride 111 H (96-108) mmol/L Carbon Dioxide 24 (22-29) mmol/L Anion Gap 11 L (12-20) BUN 16 (9-16) mg/dL Creatinine 1.12 (0.5-1.4) mg/dL Estim Creat Clear Calc 66.8 Estimated GFR > 60 Random Glucose 75 (60-115) mg/dL Calcium 9.2 (8.4-10.2) mg/dL Magnesium 2.0 (1.6-2.6) mg/dL Total Bilirubin 0.3 (0.0-1.0) mg/dL Direct Bilirubin 0.2 (0.0-0.5) mg/dL AST 28 (5-37) U/L ALT 33 (0-40) U/L Alkaline Phosphatase 94 (39-117) U/L Total Protein 7.1 (6.5-8.0) g/dL Albumin 4.0 (3.5-5.0) g/dL Lipase 68 (8-78) U/L Urine Color Yellow Urine Appearance Clear Urine pH 6.0 (5.0-9.0) Ur Specific [place] >= 1.030 H (1.005-1.025) Urine Protein 30 (1+) H (Neg-Trace) mg/dL Urine Glucose (UA) >=1000 H (Negative) mg/dL Urine Ketones Negative (Negative) mg/dL Urine Blood Negative (Negative) Urine Nitrite Negative (Negative) Ur Leukocyte Esterase Negative (Negative) Urine RBC 0-2 (0-2) /HPF Urine WBC 0-5 (0-5) /HPF Ur Squamous Epith Cells 0-2 (0-2) /HPF Urine Bacteria None Seen (None Seen) Hyaline Casts 0-2 (0-2) /LPF Independent Interpretation I performed an independent interpretation of an: CT Scan Radiology Impression Discussion of test interpretation with radiology: I have reviewed the radiologist's reading. External Record Review External record reviewed: Inpatient record, Office record, Outpatient record, Prior outpatient labs, Prior outpatient radiology, Primary care record and Outside ED record Tests considered The following testing was considered but not selected: As above Prescription Management I considered prescription management with: Other (CAD, PVD) Chronic Conditions Patient?s care impacted by: Diabetes Discharge Plan Discharge Clinical Impression: Rib contusion Patient Disposition: Home, Self-Care Instructions: How to Use an Incentive Spirometer (ED), Rib Contusion (ED) Additional Instructions: Continue taking your tramadol and celebrex as prescribed at home. You can take Tylenol 500 mg, 2 tablets (1,000mg) every 4-6 hours as needed for pain, but not to exceed 3 doses daily (3,000mg). ?Use incentive spirometer as instructed. Contact your primary care provider to arrange for a follow-up visit within 3 days. Prescriptions: No Action famotidine [Pepcid] 20 mg tablet 20 mg PO BEDTIME Qty: 90 3RF pantoprazole 20 mg tablet,delayed release (DR/EC) 20 mg PO BID Qty: 180 3RF docusate sodium 100 mg capsule 100 mg PO BEDTIME Qty: 90 3RF celecoxib 200 mg capsule 200 mg PO BID Qty: 60 3RF sennosides [Natural Senna Laxative] 8.6 mg tablet 17.2 mg PO BEDTIME Qty: 180 3RF hydroxyzine HCl 25 mg tablet 25 mg PO BEDTIME PRN (Reason: itching) Qty: 14 0RF aspirin [Adult Low Dose Aspirin] 81 mg tablet,delayed release (DR/EC) 81 mg PO DAILY clopidogrel [Plavix] 75 mg tablet 75 mg PO DAILY cilostazol 100 mg tablet 100 mg PO BID (DME) FreeStyle Lite Strips Strip See Rx Instructions .ROUTE .MEDSUPPLY Qty: 10 Rx Instructions: As directed amlodipine [Norvasc] 10 mg tablet 10 mg PO DAILY albuterol sulfate 2.5 mg/0.5 mL solution for nebulization 5 mg inhalation Q4H glucose [Dex4 Glucose] 4 gram tablet,chewable 4 g PO Q15M PRN (Reason: Hypoglycemia) Rx Instructions: until symptoms of low blood sugar are controlled atorvastatin 80 mg tablet 80 mg PO DAILY Lantus Solostar U-100 Insulin 100 unit/mL (3 mL) insulin pen 40 unit subcut QPM Flovent HFA 110 mcg/actuation HFA aerosol inhaler 2 puff inhalation BID (DME) lancets [TRUEplus Lancets] 28 gauge misc See Rx Instructions Not Applicable .MEDSUPPLY Qty: 100 Rx Instructions: As directed (DME) pen needle, diabetic [Pentips] 32 gauge x 32 needle See Rx Instructions .ROUTE DAILY Qty: 50 Rx Instructions: As directed lisinopril 40 mg tablet 40 mg PO QAM gabapentin 300 mg capsule 100 mg PO TID risperidone 3 mg tablet 3 mg PO BEDTIME carvedilol 6.25 mg tablet 6.25 mg PO BID polyethylene glycol 3350 [Miralax] 17 gram/dose powder 17 g PO DAILY Qty: 510 2RF tramadol 50 mg tablet 50 mg PO Q8H acetaminophen 500 mg tablet 1,000 mg PO Q6H PRN (Reason: pain) cholecalciferol (vitamin D3) 50 mcg (2,000 unit) capsule 50 mcg PO QAM Mounjaro 5 mg/0.5 mL pen injector subcut QWEEK Jardiance 25 mg tablet 25 mg PO QAM tadalafil [Cialis] 5 mg tablet 5 mg PO DAILY 90 Days Qty: 90 2RF Rx Instructions: BIN [id number] [facility] Group [id number] tadalafil [Cialis] 20 mg tablet 20 mg PO DAILY PRN (Reason: sexual activity) 90 Days Qty: 30 0RF Rx Instructions: administer approximately 30min before sexual activity; do not use more than 1 dose per 24hrs [id number] [facility] [id number] Member [id number] Referrals: Juan Miguel Tinajero MD [Primary Care Provider] - 3 days Print Language: [place]
[2023-07-12 17:46] LABS: MANUAL DIFF FLAG NO
[2023-07-12] MEDS: Morphine Sulfate 2 MG/ML CARTRIDGE IVPUSH (17:47)
[2023-07-12 17:51] LABS: Appearance Urine Clear; Color Urine Yellow; Glucose Urine UA >=1000 mg/dL (Negative); Leukocyte Esterase Urine Negative (Negative); Nitrite Urine Negative (Negative); Specific Gravity - Urine >= 1.030 (1.005-1.025); UMIC TRIGGER UACC YES; Urine Blood Negative (Negative); Urine Ketones Negative (Negative); Urine Protein 30 (1+) mg/dL (Neg-Trace)
[2023-07-12 17:57] LABS: Bacteria Urine None Seen (None Seen); Hyaline Casts Urine 0-2 /LPF (0-2); RBC Urine 0-2 /HPF (0-2); Squamous Epithelial Cell Urine 0-2 /HPF (0-2); WBC Urine 0-5 /HPF (0-5)
[2023-07-12 17:57] LABS: Prothrombin Time 11.7 SEC (11.1-13.3)
[2023-07-12 18:06] LABS: Alanine Aminotransferase 33 U/L (0-40); Alkaline Phosphatase 94 U/L (39-117); Anion Gap 11 (12-20); Aspartate Amino Transferase 28 U/L (5-37); Bilirubin Direct 0.2 mg/dL (0.0-0.5); Bilirubin Total 0.3 mg/dL (0.0-1.0); Blood Urea Nitrogen 16 mg/dL (9-16); Calcium 9.2 mg/dL (8.4-10.2); Carbon Dioxide 24 mmol/L (22-29); Chloride 111 mmol/L (96-108); Creatinine Clr Calc Pharmacy 66.8; Estimated Glomerular Filt Rate > 60; Glucose Random 75 mg/dL (60-115); Lipase 68 U/L (8-78); Potassium 3.8 mmol/L (3.3-5.1); Sodium 142 mmol/L (135-145); Total Protein 7.1 g/dL (6.5-8.0)
[2023-07-12 18:14] LABS: Basophils Percent Auto 0.6 % (0-2); Eosinophils Absolute Auto 0.3 X10*3/uL (0.0-0.4); Eosinophils Percent Auto 4.2 % (0-4); Hematocrit 39.2 % (42.0-52.0); Hemoglobin 13.2 g/dl (14.0-18.0); Imm Gran Abs Auto 0.03 X10*3/uL (0.00-0.03); Imm Gran Pct Auto 0.4 % (0.0-0.4); Lymphocytes Absolute Auto 2.4 X10*3/uL (1.2-4.9); Lymphocytes Percent Auto 34.6 % (20-40); Mean Corpuscular HGB Conc 33.7 g/dl (31.0-36.0); Mean Corpuscular Hemoglobin 28.4 pg (27.0-33.0); Mean Corpuscular Volume 84.5 fL (80.0-98.0); Mean Platelet Volume 9.9 fL (9.4-12.4); Monocytes Absolute Auto 0.6 X10*3/uL (0.1-1.2); Neutrophils Absolute Auto 3.6 x10*3/uL (2.0-8.3); Neutrophils Percent Auto 52.2 % (45-73); Platelet Count 178 X10*3/uL (160-400); Red Blood Count 4.64 X10*6/uL (4.60-5.80); Red Cell Distribution Width 14.2 % (11.0-16.0)
[2023-07-12] MEDS: iohexoL 350 MG/ML 100 ML INFUS..BTL IV (18:14)
[2023-07-12 19:28] VITALS: BP 144/72; PULSE 72; RESP 16; TEMP 36.7; O2SAT 95
[2023-07-12] MEDS: Acetaminophen 325 MG TABLET 975 MG PO (21:27)
[2023-07-12] MEDS: traMADoL HCL 50 MG TABLET PO (21:28)
== END 2023-07-12 21:44 | disposition home or self-care (01) ==
PROVIDERS: Physician Assistant; Emergency Provider Emergency Medicine; PCP Internal Medicine
DX: S20.212A Contusion of left front wall of thorax, initial encounter (principal); W07.XXXA Fall from chair, initial encounter; E11.9 Type 2 diabetes mellitus without complications; Z79.02 Long term (current) use of antithrombotics/antiplatelets; Z79.899 Other long term (current) drug therapy; Z79.4 Long term (current) use of insulin; Y93.89 Activity, other specified; Y92.009 Unspecified place in unspecified non-institutional (private) residence as the place of occurrence of the external cause; Y99.9 Unspecified external cause status
CPT/HCPCS: 36415; 71101; 71260; 74177; 80048; 80076; 81001; 83690; 83735; 85025; 85610; 94010; 96374; 99284; J2270; Q9967

== ENCOUNTER 2023-07-17 10:46 | Outpatient (AMB) | payer MEDICAID, SELFPAY ==
[2023-07-17 10:54] VITALS: BP 126/66; PULSE 76; BMI 32.6
--- NOTE | 2023-07-17 10:54 | MHC.OFFVIS ---
Intake Vital Signs 07/17/23 10:54 Height 5 ft 4 in Weight 190 lb BMI 32.6 BP 126/66 Blood Pressure Location Rt brachial Position Sitting Pulse 76 Pulse Source Monitor Intake Visit Reasons: f/ u BA swallow Intake Note: Patient states no GI concerns at this moment. 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 He is taking Mounjaro and he should not be on both medications. Severe gastroparesis is found. Occasional postprandial abdominal bloating, will check for pancreatic insufficiency. History of pancreatitis in the past will check lipase, check liver panel, history of elevated transaminase in the past. Patient will be sent for barium swallow. Continue current PPI does twice a day. Continue bowel regimen. Patient was encouraged to increase fluid intake and activity to promote better bowel motility. Patient will return in 2 months, sooner on as needed basis. Patient is agreeable to this plan and verbalizes understanding of instructions. He was given the opportunity to ask questions and all questions answered. ? Thank you for allowing me to participate in his care Orders Orders Vitamin B12 and Folate 04/17/23 K31.84 Pancreatic Elastase-1 04/17/23 K31.84 Lipase 04/17/23 K31.84 Liver Panel 04/17/23 K31.84 Vitamin D 25-OH (D2 and D3) 04/17/23 K31.84 FL barium swallow 04/17/23 R13.10 0 RIGHT TODAY'S VISIT Patient is here today for follow-up and to discuss lab results and barium swallow results. Barium swallow recently done and no written report yet. All patient's lab work was normal. Patient reports dysphagia with occasional dyspepsia without odynophagia. Patient is currently taking Mounjaro no longer on Trulicity. He continues to feel full quickly after eating. Patient denies any nausea or vomiting. Patient reports falling last and hitting his abdomen and his ribs. Was seen in the ER with CT scan of the chest and abdomen without any acute processes. Patient reports that he has been moving his bowels well without any issues. Denies any melena, hematochezia, unintentional weight loss or ribbon like stools. Patient denies any GI concerning symptoms today. [facility] Medical History Painful arc syndrome of right shoulder Chronic idiopathic constipation Tubular adenoma Myocardial infarct, old Diabetes PVD (peripheral vascular disease) CAD (coronary artery disease) Family history of prostate cancer Scrotal swelling Elevated PSA Surgical History Hx of ligation of vein History of esophagogastroduodenoscopy (EGD) Hx of colonoscopy Hx of arthroscopic knee surgery History of surgery History of vascular surgery History of cardiac cath Family History Maternal Grandmother Diabetes Paternal Grandmother Diabetes Brother Diabetes Mother No problems noted. Father Diabetes Social History Alcohol intake: never Patient Tobacco Use Status: Former Tobacco user Quit Date: 2014 Years Smoked: 35+ Current occupational status: disabled Current occupation: right hand dominant Review of Systems Const Denies weight gain and Denies weight loss ENT Reports no additional complaints, Reports dysphagia and Denies odynophagia Card Reports no additional complaints Resp Reports no additional complaints GI Denies abdominal pain, Denies belching, Denies melena, Reports bloating (occasional), Denies change in bowel habits, Reports dysphagia, Denies excessive flatus, Reports dyspepsia, Denies heartburn, Denies diarrhea, Denies loose stools, Denies nausea, Denies odynophagia and Denies vomiting Reports no additional complaints Musc Reports no additional complaints Neuro Reports no additional complaints Psych Reports no additional complaints Endo Reports no additional complaints Physical Exam Vital Signs: Last Vital Signs Pulse 76 07/17/23 10:54 BP 126/66 07/17/23 10:54 BMI result Body Mass Index 32.6 Const General: healthy appearing, no acute distress and well developed Nutritional Appearance: obese Orientation/consciousness: patient oriented x3 Resp Effort & Inspection: normal respiratory effort, able to speak in complete sentences, no tracheal deviation and symmetric chest movement Auscultation: clear to auscultation bilaterally Cardio Rate: regular rate GI Inspection: Yes normal to inspection, No distended and Yes obesity Palpation (GI): Soft to palpation, not firm, nontender and No hepatosplenomegaly present Auscultation: normal bowel sounds General: Yes no CVA tenderness Back/Spine/Pelvis Back: no CVA tenderness Skin General skin exam: elasticity normal, turgor normal and dry skin Neuro General: patient oriented x3 Psych Appearance: grossly normal Mental Status: mental status grossly normal Assessment & Plan Assessment & Plan (1) Chronic idiopathic constipation: Code(s): K59.04 - Chronic idiopathic constipation (2) Tubular adenoma: Code(s): D36.9 - Benign neoplasm, unspecified site (3) Gastroparesis: Code(s): K31.84 - Gastroparesis (4) IBS (irritable bowel syndrome): Code(s): K58.9 - Irritable bowel syndrome without diarrhea Qualifiers: Irritable bowel syndrome type: without diarrhea Qualified Code(s): K58.9 - Irritable bowel syndrome without diarrhea (5) Gastritis: Code(s): K29.70 - Gastritis, unspecified, without bleeding Qualifiers: Gastritis type: other gastritis Chronicity: chronic Gastritis bleeding: without bleeding Qualified Code(s): K29.50 - Unspecified chronic gastritis without bleeding Plan Continue pantoprazole, continue famotidine at bedtime. Patient was encouraged to avoid dietary triggers. Staying upright for minimum 3 hours after meals discussed with patient. Patient continues to have dysphagia with occasional dyspepsia. Patient will be sent for upper endoscopy to rule out gastritis, esophagitis, duodenitis, gastric or peptic ulcers, achalasia, Schatzki ring. Patient will be sent for colonoscopy. 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 Patient is on low-dose aspirin and Plavix. Patient denies any issues with anesthesia in the past. Currently denies any cardiac or respiratory symptoms. What to expect before during and after the procedure discussed with patient. Importance about clear liquid diet and good bowel prep day before procedure discussed with patient. I will see him after the procedure, sooner on as needed basis. Patient is agreeable to this plan and verbalizes understanding of instructions. He was given the opportunity to ask questions and all questions answered. Thank you for allowing me to participate in his care Medications: New bisacodyl (Dulcolax (bisacodyl)) 10 mg (2 x 5 mg) PO BEDTIME 180 tabs 4RF polyethylene glycol 3350 (Miralax) As directed by gastroenterology department at [facility] 238 grams PO ONCE 238 grams 0RF Z12.11 - Encounter for screening for malignant neoplasm of colon Coding Level of Care Code Est Pt Level 4 (49240) Diagnoses Chronic idiopathic constipation K59.04 Tubular adenoma D36.9 Gastroparesis K31.84 Irritable bowel syndrome without diarrhea K58.9 Irritable bowel syndrome type: without diarrhea Other chronic gastritis without hemorrhage K29.50 Gastritis type: other gastritis Chronicity: chronic Gastritis bleeding: without bleeding Time Spent (min) 35 Comment 25 minutes spent with patient and additional 10 minutes spent reviewing his records
== END 2023-07-17 12:02 | disposition home or self-care (01) ==
PROVIDERS: PCP Internal Medicine; Visit Provider Nurse Practitioner Family
DX: K59.04 Chronic idiopathic constipation (principal); D36.9 Benign neoplasm, unspecified site; K31.84 Gastroparesis; K58.9 Irritable bowel syndrome, unspecified; K29.50 Unspecified chronic gastritis without bleeding
CPT/HCPCS: 99214

== ENCOUNTER → 2023-07-17 10:53 | Outpatient (BNVA) | payer MEDICAID, SELFPAY | PROVIDERS: PCP Internal Medicine; Visit Provider Nurse Practitioner Family | DX: K59.04 Chronic idiopathic constipation (principal); K31.84 Gastroparesis; K58.9 Irritable bowel syndrome, unspecified; K29.50 Unspecified chronic gastritis without bleeding; D36.9 Benign neoplasm, unspecified site | CPT/HCPCS: 99212 ==

== ENCOUNTER 2023-09-19 10:04 | Outpatient (AMB) | payer MEDICAID, SELFPAY ==
[2023-09-19 10:21] VITALS: BP 130/64; PULSE 80; BMI 32.2
--- NOTE | 2023-09-19 10:21 | A.OFFVIS_ITS ---
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 Organic Chemistry Professor Name: Crystal [id number] Accompanied by: Self / Same As Patient Allergies No Known Allergies Allergy (Verified 07/17/23 11:00) Medication List - Last Reconciled 09/19/23 by Bassam Ogden MD acetaminophen 1,000 mg PO Q6H PRN albuterol sulfate 5 mg inhalation Q4H amlodipine (Norvasc) 10 mg PO DAILY aspirin (Adult Low Dose Aspirin) 81 mg PO DAILY atorvastatin 80 mg PO DAILY bisacodyl (Dulcolax (bisacodyl)) 10 mg (2 x 5 mg) PO BEDTIME blood sugar diagnostic (FreeStyle Lite Strips) As directed carvedilol 6.25 mg PO BID celecoxib 200 mg PO BID 30 days cholecalciferol (vitamin D3) 50 mcg PO QAM cilostazol 100 mg PO BID clopidogrel (Plavix) 75 mg PO DAILY docusate sodium 100 mg PO BEDTIME empagliflozin (Jardiance) 25 mg PO QAM famotidine (Pepcid) 20 mg PO BEDTIME fluticasone propionate 110 mcg/actuation (Flovent HFA) 2 puffs inhalation BID gabapentin 100 mg PO TID glucose (Dex4 Glucose) 4 grams PO Q15M PRN hydroxyzine HCl 25 mg PO BEDTIME PRN insulin glargine (Lantus Solostar U-100 Insulin) 40 units subcut QPM lancets (TRUEplus Lancets) As directed lisinopril 40 mg PO QAM pantoprazole 20 mg PO BID pen needle, diabetic (Pentips) As directed polyethylene glycol 3350 (Miralax) 17 grams PO DAILY polyethylene glycol 3350 (Miralax) 238 grams PO ONCE risperidone 3 mg PO BEDTIME sennosides (Natural Senna Laxative) 17.2 mg (2 x 8.6 mg) PO BEDTIME tadalafil (Cialis) 5 mg PO DAILY 90 days tadalafil (Cialis) 20 mg PO DAILY PRN 90 days tirzepatide (Mounjaro) mg subcut QWEEK tramadol 50 mg PO Q8H HPI Comments Details: 63-year-old gentleman who is referred for preoperative cardiovascular risk assessment. He has background history of coronary artery disease with multiple stents placed while he was in [facility]. He had workup done at [facility] previously and in 2016 he underwent cardiac catheterization when he presented with chest pain. Cardiac catheterization showed 90% stenosis in 2nd diagonal branch, 60% OM2 stenosis and moderate diffuse disease in the right coronary artery with mild InStent restenoses in the mid RCA. There is also a 60% stenosis noticed in the right posterior descending artery. He was medically managed at that stage. His echocardiography at that time showed normal biventricular function. Subsequent to that in 2017 he had Lexiscan which showed no fixed or reversible perfusion defect. He has been experiencing diarrhea for months. He has developed dehydration due to that. He has no shortness of breath. He does get chest discomfort and recently had chest tightness for which he took nitroglycerin. He said symptoms were similar to his pre PCI chest discomfort. He underwent Lexiscan which showed fixed basal to mid inferior defect and t .i.d.. He was taken for diagnostic angiogram where we noticed occluded mid right coronary artery with [id number] collaterals and 50% 2nd diagonal stenosis. We decided to medically manage him. He was advised to proceed with endoscopy with intermediate risk. He returns and denies any chest discomfort shortness of breath. He had lower extremity bypass surgery before and is following with vascular surgery at [facility]. He wishes to see someone at [facility] and we will refer him. 06/03/2023: He returns for follow-up. He has been following with Dr. Whitney. He has seen Urology and was given a prescription for Cialis for erectile dysfunction. He also is on isosorbide mononitrate 60 mg daily. Denying any anginal symptoms. He was advised to stop the isosorbide mononitrate. 09/19/23: He is here for follow-up. He had diarrhea for couple of days and has been feeling weak and dizzy. He is saying diarrhea is getting better now. No fevers or chills. No blood in stool. Blood pressure is normal. [facility] Medical History Painful arc syndrome of right shoulder Chronic idiopathic constipation Tubular adenoma Myocardial infarct, old Diabetes PVD (peripheral vascular disease) CAD (coronary artery disease) Family history of prostate cancer Scrotal swelling Elevated PSA Surgical History Hx of ligation of vein History of esophagogastroduodenoscopy (EGD) Hx of colonoscopy Hx of arthroscopic knee surgery History of surgery History of vascular surgery History of cardiac cath Family History Maternal Grandmother Diabetes Paternal Grandmother Diabetes Brother Diabetes Mother No problems noted. Father Diabetes Social History Alcohol intake: never Patient Tobacco Use Status: Former Tobacco user Quit Date: 2014 Years Smoked: 35+ Current occupational status: disabled Current occupation: right hand dominant Review of Systems Const Denies chills, Denies fatigue, Denies fever(s), Denies frequent falls, Denies weakness, Denies weight gain and Denies weight loss ENT Denies dizziness Card Denies chest pain, Denies leg edema, Denies lightheadedness, Denies palpitations, Denies dyspnea and Denies dyspnea on exertion Resp Denies cough, Denies dyspnea and Denies dyspnea on exertion GI Denies hematochezia Musc Denies abnormal gait, Denies muscle weakness, Denies numbness, Denies radiating pain into limb and Denies tingling Neuro Denies abnormal gait, Denies dizziness, Denies frequent falls, Denies numbness, Denies tingling and Denies weakness Endo Denies fatigue and Denies palpitations Physical Exam Vital Signs: Last Vital Signs Pulse 80 09/19/23 10:21 BP 130/64 09/19/23 10:21 BMI result Body Mass Index 32.2 GENERAL APPEARANCE: in no acute distress, pleasant. Obese. NECK: no carotid bruit, no jugular venous distention. SKIN: no suspicious lesions, warm and dry. HEART: no murmurs, regular rate and rhythm. LUNGS: clear to auscultation bilaterally. ABDOMEN: soft, nontender. EXTREMITIES: no edema. PERIPHERAL PULSES: equal. NEUROLOGIC: No gross deficits, AAO X 3 Assessment & Plan Assessment & Plan (1) Stable angina: Code(s): I20.89 - Other forms of angina pectoris Category: Medical Plan Pleasant 63-year-old gentleman who is here for follow-up. Blood pressure is well controlled. Denying any anginal symptoms. Only complaint is dizziness and fatigue after having diarrhea for few days. This is self-limiting and improving. I have advised him to increase his fluid intake and try some Pedialyte/ORS from pharmacy. Alternatively we can just drink more water and maybe some homemade lemonade. Blood pressure is not low. Same medications for now. Follow-up in 4 months. Thank you for allowing me to participate in the care of your patient. Please feel free to contact me if you have any questions. Coding Level of Care Code Est Pt Level 4 (91815) Diagnoses Stable angina I20.89
== END 2023-09-19 10:51 | disposition home or self-care (01) ==
PROVIDERS: PCP Internal Medicine; Visit Provider Internal Medicine Cardiovascular Disease
DX: I20.89 Other forms of angina pectoris (principal)
CPT/HCPCS: 99214

== ENCOUNTER → 2023-09-19 10:04 | Outpatient (BNVA) | payer MEDICAID, SELFPAY | PROVIDERS: PCP Internal Medicine; Visit Provider Internal Medicine Cardiovascular Disease | DX: I20.89 Other forms of angina pectoris (principal) | CPT/HCPCS: 99212 ==

== ENCOUNTER 2023-09-22 07:15 | Outpatient (REF) | payer MEDICAID, SELFPAY ==
[2023-09-22 08:40] LABS: Prostate Specific Antigen 0.24 ng/mL (<0.05-4.0)
== END 2023-09-22 07:16 | disposition home or self-care (01) ==
LOC: HO.LAB 07:15
PROVIDERS: PCP Internal Medicine; Visit Provider Nurse Practitioner Family
DX: R97.20 Elevated prostate specific antigen [PSA] (principal)
CPT/HCPCS: 36415; 84153

== ENCOUNTER 2023-09-25 08:05 | Outpatient (AMB) | payer MEDICAID, SELFPAY ==
--- NOTE | 2023-09-25 08:33 | A.OFFVIS_ITS ---
Intake Visit Reasons: 3m follow up(set) Intake Note: Patient presents for follow up visit for Erectile Dysfunction PSA: 0.24 Urology Medications: Cialis Blood Thinner: aspirin and clopidogrel Milk And Cream Grader Required: Yes Milk And Cream Grader Name: KATHYKATIE MADDI Accompanied by: Self / Same As Patient Allergies No Known Allergies Allergy (Verified 09/25/23 17:28) Medication List - Last Reconciled 09/25/23 by OLAF Nelson acetaminophen 1,000 mg PO Q6H PRN albuterol sulfate 5 mg inhalation Q4H amlodipine (Norvasc) 10 mg PO DAILY aspirin (Adult Low Dose Aspirin) 81 mg PO DAILY atorvastatin 80 mg PO DAILY bisacodyl (Dulcolax (bisacodyl)) 10 mg (2 x 5 mg) PO BEDTIME blood sugar diagnostic (FreeStyle Lite Strips) As directed carvedilol 6.25 mg PO BID celecoxib 200 mg PO BID 30 days cholecalciferol (vitamin D3) 50 mcg PO QAM cilostazol 100 mg PO BID clopidogrel (Plavix) 75 mg PO DAILY docusate sodium 100 mg PO BEDTIME empagliflozin (Jardiance) 25 mg PO QAM famotidine (Pepcid) 20 mg PO BEDTIME fluticasone propionate 110 mcg/actuation (Flovent HFA) 2 puffs inhalation BID gabapentin 100 mg PO TID glucose (Dex4 Glucose) 4 grams PO Q15M PRN hydroxyzine HCl 25 mg PO BEDTIME PRN insulin glargine (Lantus Solostar U-100 Insulin) 40 units subcut QPM lancets (TRUEplus Lancets) As directed lisinopril 40 mg PO QAM pantoprazole 20 mg PO BID pen needle, diabetic (Pentips) As directed polyethylene glycol 3350 (Miralax) 17 grams PO DAILY polyethylene glycol 3350 (Miralax) 238 grams PO ONCE risperidone 3 mg PO BEDTIME sennosides (Natural Senna Laxative) 17.2 mg (2 x 8.6 mg) PO BEDTIME sucralfate 1 g PO QID tadalafil (Cialis) 5 mg PO DAILY 90 days tadalafil (Cialis) 20 mg PO DAILY PRN 90 days tirzepatide (Mounjaro) mg subcut QWEEK tramadol 50 mg PO Q8H HPI Comments Details: Osvaldo is a pleasant 63-year-old Syriac speaking male patient of Dr Tinajero. He has a past medical history of chronic idiopathic constipation, MD, diabetes, PVD, CAD, and elevated PSA. He presents to the office today for follow-up of his ED and elevated PSA. In discussion with the patient today reports to be doing and feeling well. He discusses he continues with issues maintaining his erections. Despite 5 mg of Cialis daily with p.r.n. dosing on demand. Previous workup has included Testosterone 06/20--395 Free Tesosterone 53.3%. He has followed up with cardiology regarding Imdur and erectile dysfunction medications. Has since seen cardiology and Imdur has been discontinued. He discusses at length continuing to experience issues maintaining his erections. Discussed at length potential causes for erectile dysfunction. Discussed continuing daily dose of Cialis and will trial on demand Viagra instead of Cialis. Discussed at length further treatment options with injectable therapy as well as penile prosthesis. He otherwise denies any bothersome urinary issues or concerns. Discussed at length importance of managing diabetes for improvement in erectile dysfunction as well as for overall health and well being. 06/20 A1c 5.6. When asked he denies urinary urgency, urinary frequency, incontinence, nocturia, hematuria, dysuria, foul smelling urine, changes to urinary stream, flank pain, fever, and or chills. He is happy with his current voiding parameters. In office urinalysis results reviewed with the patient today. PSAs are as follows: PSAs: 01/15 0.2, 07/19 0.2, 07/20 0.2, 09/18 0.2 PFSH Medical History Painful arc syndrome of right shoulder Chronic idiopathic constipation Tubular adenoma Myocardial infarct, old Diabetes PVD (peripheral vascular disease) CAD (coronary artery disease) Family history of prostate cancer Scrotal swelling Elevated PSA Surgical History Hx of ligation of vein History of esophagogastroduodenoscopy (EGD) Hx of colonoscopy Hx of arthroscopic knee surgery History of surgery History of vascular surgery History of cardiac cath Family History Maternal Grandmother Diabetes Paternal Grandmother Diabetes Brother Diabetes Mother No problems noted. Father Diabetes Social History Alcohol intake: never Patient Tobacco Use Status: Former Tobacco user Quit Date: 2014 Years Smoked: 35+ Current occupational status: disabled Current occupation: right hand dominant Review of Systems Const Reports as per HPI Eyes Reports no additional complaints ENT Reports no additional complaints Card Reports as per HPI Resp Reports no additional complaints GI Reports as per HPI Reports as per HPI Musc Reports as per HPI Neuro Reports no additional complaints Psych Reports no additional complaints Endo Reports as per HPI Shan/Lymph Reports no additional complaints Aller/Immun Reports no additional complaints Physical Exam Const General: cooperative, healthy appearing, comfortable, no acute distress, well developed, alert and awake Nutritional Appearance: overweight Orientation/consciousness: patient oriented x3 Limitations: no limitations HEENT Head: Yes normal to inspection, Yes normocephalic and Yes atraumatic Ears: hearing grossly normal bilaterally Eyes General: appearance normal, both eyes and all related structures Neck Neck: Yes normal visual inspection and Yes trachea midline Chest Chest palpation & inspection: normal inspection of the chest Resp Effort & Inspection: normal respiratory effort and able to speak in complete sentences Cardio Rate: regular rate GI Inspection: Yes normal to inspection General: Yes no CVA tenderness Back/Spine/Pelvis Back: no CVA tenderness Skin General skin exam: no rashes or lesions noted Neuro General: patient oriented x3 Extrem General: Yes normal to inspection Psych Appearance: grossly normal and well kempt Mental Status: mental status grossly normal Speech and movement: Normal speech and movement present and Clear speech present Affect: normal affect Attitude: cooperative Thought process: Normal thought process present Thought content: Normal thought content present Insight: Fair insight present (Psych) Judgement: Fair judgement present (Psych) Results AMB Urinalysis, Automated UA Leukoctes 0 Maureen/uL Last Edit by Kylah Manriquez on 09/25/23 08:46 UA Nitrite Negative Last Edit by Kylah Manriquez on 09/25/23 08:46 UA Urobilinogen 0.2 mg/dL Last Edit by Kylah Manriquez on 09/25/23 08:46 UA Protein 15 mg/dL Last Edit by Kylah Manriquez on 09/25/23 08:46 UA pH 5.5 Last Edit by Kylah Manriquez on 09/25/23 08:46 UA Blood 0 Dhiraj/uL Last Edit by Kylah Manriquez on 09/25/23 08:46 UA Specific Abie 1.015 Last Edit by Kylah Manriquez on 09/25/23 08:46 UA Ketone Negative Last Edit by Kylah Manriquez on 09/25/23 08:46 UA Bilirubin 0 mg/dL Last Edit by Kylah Manriquez on 09/25/23 08:46 UA Glucose 500 mg/dL Last Edit by Kylah Manriquez on 09/25/23 08:46 Results Reviewed Results Reviewed: Laboratory Last Values Urine pH (Auto) 5.5 09/25/23 08:39 Specific Abie (Auto) 1.015 09/25/23 08:39 Urine Protein (Auto) 15 mg/dL 09/25/23 08:39 Glucose (UA)(Auto) 500 mg/dL 09/25/23 08:39 Urine Ketones (Auto) Negative 09/25/23 08:39 Urine Blood (Auto) 0 Dhiraj/uL 09/25/23 08:39 Urine Nitrite (Auto) Negative 09/25/23 08:39 Urine Bilirubin (Auto) 0 mg/dL 09/25/23 08:39 Urine Urobilinogen (Auto) 0.2 mg/dL 09/25/23 08:39 Leukocyte Esterase (Auto) 0 Maureen/uL 09/25/23 08:39 Assessment & Plan Assessment & Plan (1) Erectile dysfunction associated with type 2 diabetes mellitus: Code(s): E11.69 - Type 2 diabetes mellitus with other specified complication; N52.1 - Erectile dysfunction due to diseases classified elsewhere Category: Medical Plan In office urinalysis results reviewed with the patient today; as noted above. Discussed at length potential causes for erectile dysfunction patient is experiencing. Discussed and stressed the importance of managing diabetes for improvement in ED as well as overall health and well-being. Discussed lifestyle modifications to assist with erectile dysfunction. Continue low-dose Cialis 5 mg daily as discussed and prescribed; refill provided On demand dosing prescription provided for Viagra. Recent PSA results reviewed with the patient today; as noted above. Patient denies any bothersome urinary issues at this time. Patient reports be happy with current voiding parameters. Follow-up in 3 months; or sooner with any issues, concerns, and or questions. Orders: Orders AMB Urinalysis Automated Today Z13.9 - Encounter for screening, unspecified Medications: New sildenafil (Viagra) administer 30 minutes to 1 hour before sexual activity [id number] [facility] [id number] Member [id number] 100 mg PO .PRN PRN 12 tabs 0RF sexual activity 30 days Discontinued tadalafil (Cialis) administer approximately 30min before sexual activity; do not use more than 1 dose per 24hrs [id number] [id number] [id number] Discontinued Reason: Doctor's Order 20 mg PO DAILY 90 days PRN 30 tabs 0RF sexual activity Patient Instructions: The patient had an opportunity to ask questions regarding the treatment plan. All questions were answered. Physical exam, labs, and imaging were discussed and reviewed in detail. As well as risks, benefits, and discussion of treatment choices. No major barriers to understanding were identified. The patient expressed understanding and agreement with the above treatment plan. The patient was made aware they should contact our office by phone for worsening of their current condition, the appearance of new symptoms, or with any questions or concerns. Compliance is encouraged with any medications and follow up testing that is ordered. It is a privilege to be allowed the opportunity to participate in? your urological care.? Again, if you have any questions or concerns If you have any questions or concerns please do not hesitate to contact me. The office is [phone]. This note is constructed using voice recognition software. While every effort has been made to ensure accuracy [facility] office supervisor errors may have been included. Yours sincerely, OLAF Nelson Coding Level of Care Code Est Pt Level 4 (71519) Diagnoses Erectile dysfunction associated with type 2 diabetes mellitus E11.69; N52.1
== END 2023-09-25 09:02 | disposition home or self-care (01) ==
LOC: HO.HUSH 08:05
PROVIDERS: PCP Internal Medicine; Visit Provider Nurse Practitioner Family
DX: E11.69 Type 2 diabetes mellitus with other specified complication (principal); N52.1 Erectile dysfunction due to diseases classified elsewhere
CPT/HCPCS: 99214

== ENCOUNTER → 2023-09-25 08:05 | Outpatient (BNVA) | payer MEDICAID, SELFPAY | PROVIDERS: PCP Internal Medicine; Visit Provider Nurse Practitioner Family | DX: E11.69 Type 2 diabetes mellitus with other specified complication (principal); N52.1 Erectile dysfunction due to diseases classified elsewhere | CPT/HCPCS: 81003; 99212 ==

== ENCOUNTER 2023-12-06 12:35 | Outpatient (AMB) | payer MEDICAID, SELFPAY ==
--- NOTE | 2023-12-06 12:41 | A.OFFVIS_ITS ---
Vital Signs 12/06/23 12:43 Height 5 ft 4 in Weight 187 lb BMI 32.1 Intake Visit Reasons: O/V RT shoulder S/P injection 02/15/23 Intake Note: Osvaldo a 63 year old male who presents today for a follow up of right shoulder, last injection on 02/15/23. Patient reports he found no relief with injection, or with nerve block that was done with pain management. He continues to have pain and limited ROM. 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: Joseph ID#[id number] Allergies No Known Allergies Allergy (Verified 12/06/23 12:47) Medication List - Last Reconciled 12/06/23 by Barber Bishop PA-C acetaminophen 1,000 mg PO Q6H PRN albuterol sulfate 5 mg inhalation Q4H amlodipine (Norvasc) 10 mg PO DAILY aspirin (Adult Low Dose Aspirin) 81 mg PO DAILY atorvastatin 80 mg PO DAILY bisacodyl (Dulcolax (bisacodyl)) 10 mg (2 x 5 mg) PO BEDTIME blood sugar diagnostic (FreeStyle Lite Strips) As directed carvedilol 6.25 mg PO BID celecoxib 200 mg PO BID 30 days cholecalciferol (vitamin D3) 50 mcg PO QAM cilostazol 100 mg PO BID clopidogrel (Plavix) 75 mg PO DAILY docusate sodium 100 mg PO BEDTIME empagliflozin (Jardiance) 25 mg PO QAM famotidine (Pepcid) 20 mg PO BEDTIME fluticasone propionate 110 mcg/actuation (Flovent HFA) 2 puffs inhalation BID gabapentin 100 mg PO TID glucose (Dex4 Glucose) 4 grams PO Q15M PRN hydroxyzine HCl 25 mg PO BEDTIME PRN insulin glargine (Lantus Solostar U-100 Insulin) 40 units subcut QPM lancets (TRUEplus Lancets) As directed lisinopril 40 mg PO QAM pantoprazole 20 mg PO BID pen needle, diabetic (Pentips) As directed polyethylene glycol 3350 (Miralax) 17 grams PO DAILY polyethylene glycol 3350 (Miralax) 238 grams PO ONCE risperidone 3 mg PO BEDTIME sennosides (Natural Senna Laxative) 17.2 mg (2 x 8.6 mg) PO BEDTIME sildenafil (Viagra) 100 mg PO .PRN PRN 30 days sucralfate 1 g PO QID tadalafil (Cialis) 5 mg PO DAILY 90 days tirzepatide (Mounjaro) mg subcut QWEEK HPI HPI O/V RT shoulder S/P injection 02/15/23 : Details: 63-year-old male who returns to the office today with an interpreter deaf for a follow-up of right shoulder pain. He continues to have pain in his shoulder as well as limited ROM. He has his last injection on 02/15/23 which did not provide him any relief. He has also tried nerve block done by pain management without benefits. [facility] Medical History Painful arc syndrome of right shoulder Chronic idiopathic constipation Tubular adenoma Myocardial infarct, old Diabetes PVD (peripheral vascular disease) CAD (coronary artery disease) Family history of prostate cancer Scrotal swelling Elevated PSA Surgical History Hx of ligation of vein History of esophagogastroduodenoscopy (EGD) Hx of colonoscopy Hx of arthroscopic knee surgery History of surgery History of vascular surgery History of cardiac cath Family History Maternal Grandmother Diabetes Paternal Grandmother Diabetes Brother Diabetes Mother No problems noted. Father Diabetes Social History Alcohol intake: never Patient Tobacco Use Status: Former Tobacco user Years Smoked: 35+ Current occupational status: disabled Current occupation: right hand dominant Review of Systems Const All systems reviewed & are unremarkable except as noted in HPI and below Physical Exam Vital Signs: BMI result Body Mass Index 32.1 Const General: cooperative, healthy appearing, comfortable, no acute distress, well developed and alert Orientation/consciousness: patient oriented x3 HEENT Head: Yes normal to inspection, Yes normocephalic and Yes atraumatic Eyes General: appearance normal, both eyes and all related structures Resp Effort & Inspection: normal respiratory effort and able to speak in complete sentences Cardio Rate: regular rate Peripheral pulses: Peripheral pulses 2+ throughout GI Palpation (GI): Soft to palpation Skin Lesions: no lesions Rashes: no rashes Neuro General: patient oriented x3 Extrem Other: Right shoulder Tenderness over the bicipital groove and along the deltoid region of the shoulder. Forward flexion to 175, external rotation to 90, internal rotation to S1. 5/5 RTC strength. Negative Encarnacion and cross body abduction. NVI. Compensation with the use of accessory muscles with rotator cuff strength testing on right shoulder when compared to the contralateral side. Assessment & Plan Assessment & Plan (1) Chronic right shoulder pain: Code(s): M25.511 - Pain in right shoulder; G89.29 - Other chronic pain Category: Medical (2) Polymyalgia: Code(s): M35.3 - Polymyalgia rheumatica Category: Medical Plan We had a discussion about the options and he is not interested in having a cortisone injection as it has not been providing him any relief. We also discussed benefits of working with physical therapy which he declined. I put in a referral to rheumatology to rule out if there is an inflammatory source to his pain. I also explained how he is not a surgical candidate which he still not entirely understands therefore I will book him an appointment with Dr. Mcmillan to discuss further treatment options given he has failed steroid injection and failed the nerve block with the pain management. Orders: Referrals Rheumatology Referral G89.29 - Other chronic pain, M25.511 - Pain in right shoulder, M35.3 - Polymyalgia rheumatica Patient Instructions: Scribed for Barber Bishop PA-C, by Emanuel South bilingual medical receptionist, on 12/06/2023 at 12:30 PM EST.? I, Barber Bishop PA-C, have personally reviewed and agree with the information entered by the scribe. Coding Level of Care Code Est Pt Level 3 (27394) Diagnoses Chronic right shoulder pain M25.511; G89.29 Polymyalgia M35.3
[2023-12-06 12:43] VITALS: BMI 32.1
== END 2023-12-06 13:13 | disposition home or self-care (01) ==
LOC: HO.HOS 12:35
PROVIDERS: PCP Internal Medicine; Visit Provider Physician Assistant
DX: M25.511 Pain in right shoulder (principal); G89.29 Other chronic pain; M35.3 Polymyalgia rheumatica
CPT/HCPCS: 99213

== ENCOUNTER → 2023-12-06 12:35 | Outpatient (BNVA) | payer MEDICAID, SELFPAY | PROVIDERS: PCP Internal Medicine; Visit Provider Physician Assistant | DX: M25.511 Pain in right shoulder (principal); M35.3 Polymyalgia rheumatica; G89.29 Other chronic pain | CPT/HCPCS: 99212 ==

== ENCOUNTER 2023-12-25 08:19 | Outpatient (AMB) | payer MEDICAID, SELFPAY ==
--- NOTE | 2023-12-25 08:29 | A.OFFVIS_ITS ---
Intake Visit Reasons: 3m follow up Intake Note: Patient presents for 3m follow up Urology Medications: Cialis Blood Thinner: aspirin and clopidogrel Upholstery Covers Inspector Required: Yes Upholstery Covers Inspector Name: [id number] Accompanied by: Self / Same As Patient Allergies No Known Allergies Allergy (Verified 12/25/23 09:19) Medication List - Last Reconciled 12/25/23 by OLAF Nelson acetaminophen 1,000 mg PO Q6H PRN albuterol sulfate 5 mg inhalation Q4H amlodipine (Norvasc) 10 mg PO DAILY aspirin (Adult Low Dose Aspirin) 81 mg PO DAILY atorvastatin 80 mg PO DAILY bisacodyl (Dulcolax (bisacodyl)) 10 mg (2 x 5 mg) PO BEDTIME blood sugar diagnostic (FreeStyle Lite Strips) As directed carvedilol 6.25 mg PO BID celecoxib 200 mg PO BID 30 days cholecalciferol (vitamin D3) 50 mcg PO QAM cilostazol 100 mg PO BID clopidogrel (Plavix) 75 mg PO DAILY docusate sodium 100 mg PO BEDTIME empagliflozin (Jardiance) 25 mg PO QAM famotidine (Pepcid) 20 mg PO BEDTIME fluticasone propionate 110 mcg/actuation (Flovent HFA) 2 puffs inhalation BID gabapentin 100 mg PO TID glucose (Dex4 Glucose) 4 grams PO Q15M PRN hydroxyzine HCl 25 mg PO BEDTIME PRN insulin glargine (Lantus Solostar U-100 Insulin) 40 units subcut QPM lancets (TRUEplus Lancets) As directed lisinopril 40 mg PO QAM pantoprazole 20 mg PO BID pen needle, diabetic (Pentips) As directed polyethylene glycol 3350 (Miralax) 17 grams PO DAILY risperidone 3 mg PO BEDTIME sennosides (Natural Senna Laxative) 17.2 mg (2 x 8.6 mg) PO BEDTIME sildenafil (Viagra) 100 mg PO .PRN PRN 30 days sucralfate 1 g PO QID tadalafil (Cialis) 5 mg PO DAILY 90 days tirzepatide (Mounjaro) mg subcut QWEEK HPI Comments Details: Osvaldo is a pleasant 63-year-old Swiss speaking male patient of Dr Tinajero. He has a past medical history of chronic idiopathic constipation, OK, diabetes, PVD, CAD, and elevated PSA. He presents to the office today for follow-up of his ED and elevated PSA. In discussion with the patient today reports to be doing and feeling well. He discusses he continues with issues maintaining his erections. Despite 5 mg of Cialis daily with p.r.n. dosing of Cialis or Viagra. Previous workup has included Testosterone 06/20 395 Free Tesosterone 53.3%. Discussed at length potential causes for erectile dysfunction.Discussed at length further treatment options to include injectable therapy, penile prosthesis, and or penile pump with ring. Risks and benefits of these interventions were discussed at length. He otherwise denies any bothersome urinary issues or concerns. Discussed at length importance of managing diabetes for improvement in erectile dysfunction as well as for overall health and well being. 06/20 A1c 5.6. When asked he denies urinary urgency, urinary frequency, incontinence, nocturia, hematuria, dysuria, foul smelling urine, changes to urinary stream, flank pain, fever, and or chills. He is happy with his current voiding parameters. In office urinalysis results reviewed with the patient today. PSAs are as follows: PSAs: 01/15 0.2, 07/19 0.2, 07/20 0.2, 09/18 0.2 PFSH Medical History Painful arc syndrome of right shoulder Chronic idiopathic constipation Tubular adenoma Myocardial infarct, old Diabetes PVD (peripheral vascular disease) CAD (coronary artery disease) Family history of prostate cancer Scrotal swelling Elevated PSA Surgical History Hx of ligation of vein History of esophagogastroduodenoscopy (EGD) Hx of colonoscopy Hx of arthroscopic knee surgery History of surgery History of vascular surgery History of cardiac cath Family History Maternal Grandmother Diabetes Paternal Grandmother Diabetes Brother Diabetes Mother No problems noted. Father Diabetes Social History Alcohol intake: never Patient Tobacco Use Status: Former Tobacco user Years Smoked: 35+ Current occupational status: disabled Current occupation: right hand dominant Review of Systems Const All systems reviewed & are unremarkable except as noted in HPI and below Reports as per HPI Eyes Reports no additional complaints ENT Reports no additional complaints Card Reports as per [facility] Resp Reports no additional complaints GI Reports as per HPI Reports as per [facility] Musc Reports as per [facility] Neuro Reports no additional complaints Psych Reports no additional complaints Endo Reports as per HPI Shan/Lymph Reports no additional complaints Aller/Immun Reports no additional complaints Physical Exam Const General: cooperative, healthy appearing, comfortable, no acute distress, well developed, alert and awake Nutritional Appearance: overweight Orientation/consciousness: patient oriented x3 Limitations: no limitations HEENT Head: Yes normal to inspection, Yes normocephalic and Yes atraumatic Ears: hearing grossly normal bilaterally Eyes General: appearance normal, both eyes and all related structures Neck Neck: Yes normal visual inspection and Yes trachea midline Chest Chest palpation & inspection: normal inspection of the chest Resp Effort & Inspection: normal respiratory effort and able to speak in complete sentences Cardio Rate: regular rate GI Inspection: Yes normal to inspection General: Yes no CVA tenderness Back/Spine/Pelvis Back: no CVA tenderness Skin General skin exam: no rashes or lesions noted Neuro General: patient oriented x3 Extrem General: Yes normal to inspection Psych Appearance: grossly normal and well kempt Mental Status: mental status grossly normal Speech and movement: Normal speech and movement present and Clear speech present Affect: normal affect Attitude: cooperative Thought process: Normal thought process present Thought content: Normal thought content present Insight: Fair insight present (Psych) Judgement: Fair judgement present (Psych) Results AMB Urinalysis, Automated UA Leukoctes 0 Maureen/uL Last Edit by OLEG Treviño on 12/25/23 09:02 UA Nitrite Negative Last Edit by OLEG Treviño on 12/25/23 09:02 UA Urobilinogen 0.2 mg/dL Last Edit by OLEG Treviño on 12/25/23 09:0 2 UA Protein 30 mg/dL Last Edit by OLEG Treviño on 12/25/23 09:02 UA pH 6.0 Last Edit by OLEG Treviño on 12/25/23 09:02 UA Blood 0 Dhiraj/uL Last Edit by OLEG Treviño on 12/25/23 09:02 UA Specific [place] 1.015 Last Edit by OLEG Treviño on 12/25/23 09: 02 UA Ketone Negative Last Edit by OLEG Treviño on 12/25/23 09:02 UA Bilirubin 0 mg/dL Last Edit by OLEG Treviño on 12/25/23 09:02 UA Glucose 0 mg/dL Last Edit by OLEG Treviño on 12/25/23 09:02 Results Reviewed Results Reviewed: Laboratory Last Values Urine pH (Auto) 6.0 12/25/23 09:01 Specific [place] (Auto) 1.015 12/25/23 09:01 Urine Protein (Auto) 30 mg/dL 12/25/23 09:01 Glucose (UA)(Auto) 0 mg/dL 12/25/23 09:01 Urine Ketones (Auto) Negative 12/25/23 09:01 Urine Blood (Auto) 0 Dhiraj/uL 12/25/23 09:01 Urine Nitrite (Auto) Negative 12/25/23 09:01 Urine Bilirubin (Auto) 0 mg/dL 12/25/23 09:01 Urine Urobilinogen (Auto) 0.2 mg/dL 12/25/23 09:01 Leukocyte Esterase (Auto) 0 Maureen/uL 12/25/23 09:01 Assessment & Plan Assessment & Plan (1) Erectile dysfunction associated with type 2 diabetes mellitus: Code(s): E11.69 - Type 2 diabetes mellitus with other specified complication; N52.1 - Erectile dysfunction due to diseases classified elsewhere Category: Medical (2) Prostatitis: Code(s): N41.9 - Inflammatory disease of prostate, unspecified Category: Medical (3) Family history of prostate cancer: Code(s): Z80.42 - Family history of malignant neoplasm of prostate Category: Medical Plan In office urinalysis results reviewed with the patient today; as noted above. Discussed at length potential causes of erectile dysfunction as well as further treatment options;risks and benefits of these interventions were discussed. Discussed lifestyle modifications to assist with erectile dysfunction. Discussed, stress, and educated on the importance of managing diabetes for improvement in ED as well as overall health and well-being. Patient currently denies any bothersome urinary issues or concerns. Patient reports be happy with current voiding parameters. Will send prescription to [facility] as discussed. Will schedule for in office injection teaching once medication is available Follow-up for in office injection teaching; or sooner with any issues, concerns, and or questions. Orders: Orders AMB Urinalysis Automated Today Z13.9 - Encounter for screening, unspecified Medications: Discontinued polyethylene glycol 3350 (Miralax) As directed by gastroenterology department at [facility] Discontinued Reason: Patient Completed Course 238 grams PO ONCE 238 grams 0RF Z12.11 - Encounter for screening for malignant neoplasm of colon Patient Instructions: The patient had an opportunity to ask questions regarding the treatment plan. All questions were answered. Physical exam, labs, and imaging were discussed and reviewed in detail. As well as risks, benefits, and discussion of treatment choices. No major barriers to understanding were identified. The patient expressed understanding and agreement with the above treatment plan. The patient was made aware they should contact our office by phone for worsening of their current condition, the appearance of new symptoms, or with any questions or concerns. Compliance is encouraged with any medications and follow up testing that is ordered. It is a privilege to be allowed the opportunity to participate in? your urological care.? Again, if you have any questions or concerns If you have any questions or concerns please do not hesitate to contact me. The office is [phone]. This note is constructed using voice recognition software. While every effort has been made to ensure accuracy medical administrative technician errors may have been included. Yours sincerely, OLAF Nelson Coding Level of Care Code Est Pt Level 4 (35729) Complex EM visit Add On G2211 Diagnoses Erectile dysfunction associated with type 2 diabetes mellitus E11.69; N52.1 Prostatitis N41.9 Family history of prostate cancer Z80.42 Time Spent (min) 25
== END 2023-12-25 09:23 | disposition home or self-care (01) ==
PROVIDERS: PCP Internal Medicine; Visit Provider Nurse Practitioner Family
DX: E11.69 Type 2 diabetes mellitus with other specified complication (principal); N52.1 Erectile dysfunction due to diseases classified elsewhere; N41.9 Inflammatory disease of prostate, unspecified; Z80.42 Family history of malignant neoplasm of prostate; Z13.9 Encounter for screening, unspecified
CPT/HCPCS: 99214

== ENCOUNTER → 2023-12-25 08:19 | Outpatient (BNVA) | payer MEDICAID, SELFPAY | PROVIDERS: PCP Internal Medicine; Visit Provider Nurse Practitioner Family | DX: E11.69 Type 2 diabetes mellitus with other specified complication (principal); N25.1 Nephrogenic diabetes insipidus; N41.9 Inflammatory disease of prostate, unspecified; R97.20 Elevated prostate specific antigen [PSA]; N52.9 Male erectile dysfunction, unspecified; Z80.42 Family history of malignant neoplasm of prostate; Z79.899 Other long term (current) drug therapy | CPT/HCPCS: 81003; 99212 ==

== ENCOUNTER 2024-01-04 09:51 | Outpatient (AMB) | payer MEDICAID, SELFPAY ==
[2024-01-04 09:52] VITALS: BMI 32.1
--- NOTE | 2024-01-04 09:52 | MHC.OFFVIS ---
Vital Signs 01/04/24 09:52 Height 5 ft 4 in Weight 187 lb BMI 32.1 Intake Visit Reasons: OV-RT shoulder, failed injections and stimulator Intake Note: Osvaldo a 63 year old right hand dominant male who presents today for a follow up of right shoulder, last injection on 02/15/23. Patient reports he found no relief with injection, or with nerve block that was done with pain management. He was last seen with Barber who referred him to further discuss why he is not a surgical candidate. Patient states pain has been worsening and radiating down the right arm. He states pain management told him he had a tendon rupture but according to patient, he was told by Barber he does not have a rupture. Allergies No Known Allergies Allergy (Verified 01/04/24 09:53) HPI HPI OV-RT shoulder, failed injections and stimulator: Details: This is a 63-year-old gentleman with ongoing right shoulder pain. I have seen him in the past for this problem and he has had multiple injections physical therapy and was sent to pain management continues to have pain. He describes difficulty with overhead reaching and pain at night. He feels very frustrated that he is not improved. He feels the quality of his life is diminished. He has tried everything and nothing has helped. HPI Comments Details: Osvaldo a 63 year old right hand dominant male who presents today for a follow up of right shoulder, last injection on 02/15/23. Patient reports he found no relief with injection, or with nerve block that was done with pain management. He was last seen with Barber who referred him to further discuss why he is not a surgical candidate. Patient states pain has been worsening and radiating down the right arm. He states pain management told him he had a tendon rupture but according to patient, he was told by Barber he does not have a rupture. [facility] Medical History Painful arc syndrome of right shoulder Chronic idiopathic constipation Tubular adenoma Myocardial infarct, old Diabetes PVD (peripheral vascular disease) CAD (coronary artery disease) Family history of prostate cancer Scrotal swelling Elevated PSA Surgical History Hx of ligation of vein History of esophagogastroduodenoscopy (EGD) Hx of colonoscopy Hx of arthroscopic knee surgery History of surgery History of vascular surgery History of cardiac cath Family History Maternal Grandmother Diabetes Paternal Grandmother Diabetes Brother Diabetes Mother No problems noted. Father Diabetes Social History Alcohol intake: never Patient Tobacco Use Status: Former Tobacco user Years Smoked: 35+ Current occupational status: disabled Current occupation: right hand dominant Physical Exam Vital Signs: BMI result Body Mass Index 32.1 Extrem Other: 35/70/120/S1 Positive Encarnacion and Neer 4+/5 painful empty can Results Reviewed Results Reviewed: I personally reviewed the MR images. 1. Mild-moderate supraspinatus tendinosis. 2. Moderate infraspinatus tendinosis. 0.8 x 1.2 cm intrasubstance partial tear. 3. Moderate subscapularis tendinosis. 4. Question mild proximal biceps tendinosis. 5. Posterosuperior labral degenerative fraying. Superior labral degenerative fraying. 6. Moderate acromioclavicular arthritis. 7. Small glenohumeral joint effusion. Assessment & Plan Assessment & Plan (1) Tendinosis of right shoulder: Code(s): M67.813 - Other specified disorders of tendon, right shoulder Category: Medical Plan: This is a 63-year-old gentleman with chronic right shoulder pain with partial-thickness tearing of the supra and infraspinatus with tendinosis, labral degeneration, AC joint arthritis and synovitis. He has tried everything and fail. I recommend a shoulder arthroscopy with possible rotator cuff repair and subacromial decompression. I explained to him the procedure in detail as well as the risks, benefits and alternatives. He expressed understanding and we will proceed forward accordingly. Coding Level of Care Code Est Pt Level 4 (90619) Diagnoses Tendinosis of right shoulder M67.813
== END 2024-01-04 10:19 | disposition home or self-care (01) ==
PROVIDERS: PCP Internal Medicine; Referring Provider Internal Medicine; Visit Provider Orthopaedic Surgery
DX: M67.813 Other specified disorders of tendon, right shoulder (principal)
CPT/HCPCS: 99214

== ENCOUNTER → 2024-01-04 09:51 | Outpatient (BNVA) | payer MEDICAID, SELFPAY | PROVIDERS: PCP Internal Medicine; Visit Provider Orthopaedic Surgery | DX: M67.813 Other specified disorders of tendon, right shoulder (principal) | CPT/HCPCS: 99212 ==

== ENCOUNTER 2024-01-18 10:51 | Outpatient (REF) | payer MEDICAID, SELFPAY ==
[2024-01-18 14:17] LABS: MANUAL DIFF FLAG NO
[2024-01-18 14:46] LABS: Basophils Percent Auto 0.5 % (0-2); Eosinophils Absolute Auto 0.2 X10*3/uL (0.0-0.4); Eosinophils Percent Auto 3.4 % (0-4); Hematocrit 38.4 % (42.0-52.0); Hemoglobin 12.9 g/dl (14.0-18.0); Imm Gran Abs Auto 0.01 X10*3/uL (0.00-0.03); Imm Gran Pct Auto 0.2 % (0.0-0.4); Lymphocytes Absolute Auto 1.9 X10*3/uL (1.2-4.9); Lymphocytes Percent Auto 30.1 % (20-40); Mean Corpuscular HGB Conc 33.6 g/dl (31.0-36.0); Mean Corpuscular Hemoglobin 28.6 pg (27.0-33.0); Mean Corpuscular Volume 85.1 fL (80.0-98.0); Mean Platelet Volume 10.4 fL (9.4-12.4); Monocytes Absolute Auto 0.5 X10*3/uL (0.1-1.2); Monocytes Percent Auto 8.3 % (2-11); Neutrophils Absolute Auto 3.6 x10*3/uL (2.0-8.3); Neutrophils Percent Auto 57.5 % (45-73); Platelet Count 197 X10*3/uL (160-400); Red Blood Count 4.51 X10*6/uL (4.60-5.80); Red Cell Distribution Width 13.8 % (11.0-16.0); White Blood Count 6.2 X10*3/uL (4.8-10.8)
[2024-01-18 14:49] LABS: Prothrombin Time 12.4 SEC (11.1-13.3)
[2024-01-18 15:01] LABS: Anion Gap 12 (12-20); Blood Urea Nitrogen 16 mg/dL (9-16); Calcium 10.1 mg/dL (8.4-10.2); Carbon Dioxide 26 mmol/L (22-29); Chloride 108 mmol/L (96-108); Estimated Glomerular Filt Rate > 60; Glucose Random 111 mg/dL (60-115); Potassium 3.3 mmol/L (3.3-5.1); Sodium 143 mmol/L (135-145)
== END 2024-01-18 10:52 | disposition home or self-care (01) ==
LOC: HO.CHCLDS 10:51
PROVIDERS: Visit Provider Pediatrics
DX: Z01.818 Encounter for other preprocedural examination (principal)
CPT/HCPCS: 36415; 80048; 85025; 85610

== ENCOUNTER 2024-01-23 10:15 | Outpatient (AMB) | payer MEDICAID, SELFPAY ==
[2024-01-23 10:36] VITALS: BP 134/72; PULSE 69; BMI 33.7
--- NOTE | 2024-01-23 10:36 | A.OFFVIS_ITS ---
Vital Signs 01/23/24 10:36 Height 5 ft 4 in Weight 196 lb 3.382 oz BMI 33.7 BP 134/72 Blood Pressure Location Lt brachial Position Sitting Pulse 69 Pulse Source Monitor Intake Visit Reasons: 4 mth f/up Intake Note: 4 mth f/up Internal Review And Audit Compliance Required: Yes Internal Review And Audit Compliance Name: Mohit/calli/jordanian Accompanied by: Self / Same As Patient Allergies No Known Allergies Allergy (Verified 01/04/24 09:53) Medication List - Last Reconciled 01/23/24 by Bassam Ogden MD acetaminophen 1,000 mg PO Q6H PRN albuterol sulfate 5 mg inhalation Q4H PRN amlodipine (Norvasc) 10 mg PO DAILY aspirin (Adult Low Dose Aspirin) 81 mg PO DAILY atorvastatin 80 mg PO BEDTIME bisacodyl (Dulcolax (bisacodyl)) 10 mg (2 x 5 mg) PO BEDTIME blood sugar diagnostic (FreeStyle Lite Strips) As directed carvedilol 6.25 mg PO BID cholecalciferol (vitamin D3) 50 mcg PO QAM cilostazol 100 mg PO BID clopidogrel (Plavix) 75 mg PO DAILY docusate sodium 100 mg PO DAILY famotidine (Pepcid) 20 mg PO BEDTIME fluticasone propionate 110 mcg/actuation 2 puffs inhalation BID gabapentin 300 mg PO DAILY glucose (Dex4 Glucose) 8 grams PO Q15M PRN insulin glargine (Lantus Solostar U-100 Insulin) 34 units subcut QPM lancets (TRUEplus Lancets) As directed pantoprazole 20 mg PO DAILY pen needle, diabetic (Pentips) As directed risperidone 3 mg PO BEDTIME tirzepatide (Mounjaro) 5 mg subcut QWEEK tramadol 50 mg PO TID PRN HPI Comments Details: 63-year-old gentleman who is referred for preoperative cardiovascular risk assessment. He has background history of coronary artery disease with multiple stents placed while he was in [facility]. He had workup done at [facility] previously and in 2016 he underwent cardiac catheterization when he presented with chest pain. Cardiac catheterization showed 90% stenosis in 2nd diagonal branch, 60% OM2 stenosis and moderate diffuse disease in the right coronary artery with mild InStent restenoses in the mid RCA. There is also a 60% stenosis noticed in the right posterior descending artery. He was medically managed at that stage. His echocardiography at that time showed normal biventricular function. Subsequent to that in 2017 he had Lexiscan which showed no fixed or reversible perfusion defect. He has been experiencing diarrhea for months. He has developed dehydration due to that. He has no shortness of breath. He does get chest discomfort and recently had chest tightness for which he took nitroglycerin. He said symptoms were similar to his pre PCI chest discomfort. He underwent Lexiscan which showed fixed basal to mid inferior defect and t.i.d.. He was taken for diagnostic angiogram where we noticed occluded mid right coronary artery with [id number] collaterals and 50% 2nd diagonal stenosis. We decided to medically manage him. He was advised to proceed with endoscopy with intermediate risk. He returns and denies any chest discomfort shortness of breath. He had lower extremity bypass surgery before and is following with vascular surgery at [facility]. He wishes to see someone at [facility] and we will refer him. 06/03/2023: He returns for follow-up. He has been following with Dr. Whitney. He has seen Urology and was given a prescription for Cialis for erectile dysfunction. He also is on isosorbide mononitrate 60 mg daily. Denying any anginal symptoms. He was advised to stop the isosorbide mononitrate. 09/19/23: He is here for follow-up. He had diarrhea for couple of days and has been feeling weak and dizzy. He is saying diarrhea is getting better now. No fevers or chills. No blood in stool. Blood pressure is normal. 01/23/2024: He is here for follow-up. Feeling better. No chest pains or shortness of breath. Blood pressure is well controlled. He is taking aspirin, Plavix and cilostazol. He has peripheral vascular disease. I have explained to him that he should not be taking all 3 of his medications because of bleeding risk. He is undergoing right shoulder surgery and stopping Plavix. I have advised him not to resume Plavix after surgery and discontinue aspirin and cilostazol. [facility] Medical History (Updated 01/21/24 @ 09:51 by Jolene Hyatt RN) Arthritis Asthma Peripheral arterial occlusive disease Hyperlipidemia IBS (irritable bowel syndrome) Benign prostatic hyperplasia without lower urinary tract symptoms GERD (gastroesophageal reflux disease) Chronic kidney disease Acute kidney failure Abdominal bloating Painful arc syndrome of right shoulder Chronic idiopathic constipation Tubular adenoma Myocardial infarct, old Diabetes PVD (peripheral vascular disease) CAD (coronary artery disease) Family history of prostate cancer Scrotal swelling Elevated PSA Surgical History Hx of aorto-femoral bypass History of coronary artery stent placement Hx of coronary angioplasty Hx of ligation of vein History of esophagogastroduodenoscopy (EGD) Hx of colonoscopy Hx of arthroscopic knee surgery History of surgery History of vascular surgery History of cardiac cath Family History Maternal Grandmother Diabetes Paternal Grandmother Diabetes Brother Diabetes Mother No problems noted. 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 home services: Yes ([employer]) Alcohol intake: never Patient Tobacco Use Status: Former Tobacco user Years Smoked: 35+ Current occupational status: disabled Current occupation: right hand dominant Review of Systems Const Denies chills, Denies fatigue, Denies fever(s), Denies frequent falls, Denies weakness, Denies weight gain and Denies weight loss ENT Denies dizziness Card Denies chest pain, Denies leg edema, Denies lightheadedness, Denies palp itations, Denies dyspnea and Denies dyspnea on exertion Resp Denies cough, Denies dyspnea and Denies dyspnea on exertion GI Denies hematochezia Musc Denies abnormal gait, Denies muscle weakness, Denies numbness, Denies radiating pain into limb and Denies tingling Neuro Denies abnormal gait, Denies dizziness, Denies frequent falls, Denies numbness, Denies tingling and Denies weakness Endo Denies fatigue and Denies palpitations Physical Exam Vital Signs: Last Vital Signs Pulse 69 01/23/24 10:36 BP 134/72 01/23/24 10:36 BMI result Body Mass Index 33.7 GENERAL APPEARANCE: in no acute distress, pleasant. Obese. NECK: no carotid bruit, no jugular venous distention. SKIN: no suspicious lesions, warm and dry. HEART: no murmurs, regular rate and rhythm. LUNGS: clear to auscultation bilaterally. ABDOMEN: soft, nontender. EXTREMITIES: no edema. PERIPHERAL PULSES: equal. NEUROLOGIC: No gross deficits, AAO X 3 Office Procedures EKG Details: Sinus rhythm 69 beats per minute, normal axis, minimal voltage criteria for left ventricular hypertrophy, nonspecific T-wave changes, QT interval 462. [id number], Complete Assessment & Plan Assessment & Plan (1) Stable angina: Code(s): I20.89 - Other forms of angina pectoris Category: Medical (2) PVD (peripheral vascular disease): Comment: 08/24/2021 - plasty of left SFA for in stent Re-stenosis with DCB 03/08/2022 - diagnostic angiogram Code(s): I73.9 - Peripheral vascular disease, unspecified Category: Medical (3) Preop cardiovascular exam: Code(s): Z01.810 - Encounter for preprocedural cardiovascular examination Category: Medical Plan [age] year gentleman who is here for follow-up. He has known coronary disease with RADIO BROADCASTER of the right coronary artery and moderate diagonal stenosis. No anginal symptoms. He needs shoulder surgery and can proceed with intermediate risk for perioperative cardiovascular complications. Blood pressure is well controlled. I have advised him not to use aspirin Plavix and cilostazol because of bleeding risk. He is stopping Plavix for surgery and I have advised him not to resume Plavix. He will continue aspirin and cilostazol going forward. Follow-up with us in few months. Thank you for allowing me to participate in the care of your patient. Please feel free to contact me if you have any questions. Coding Level of Care Code Est Pt Level 4 (22905) Diagnoses Stable angina I20.89 PVD (peripheral vascular disease) I73.9 Preop cardiovascular exam Z01.810 CPT Codes EKG - CPT: [id number], Complete ([id number])
== END 2024-01-23 11:05 | disposition home or self-care (01) ==
PROVIDERS: PCP Internal Medicine; Referring Provider Internal Medicine; Visit Provider Internal Medicine Cardiovascular Disease
DX: I20.89 Other forms of angina pectoris (principal); I73.9 Peripheral vascular disease, unspecified; Z01.810 Encounter for preprocedural cardiovascular examination
CPT/HCPCS: 93010; 99214

== ENCOUNTER → 2024-01-23 10:15 | Outpatient (BNVA) | payer MEDICAID, SELFPAY | PROVIDERS: PCP Internal Medicine; Visit Provider Internal Medicine Cardiovascular Disease | DX: Z01.810 Encounter for preprocedural cardiovascular examination (principal); I73.9 Peripheral vascular disease, unspecified; I20.89 Other forms of angina pectoris | CPT/HCPCS: 93005; 99212 ==

== ENCOUNTER 2024-01-24 08:36 | Outpatient (AMB) | payer MEDICAID, SELFPAY ==
--- NOTE | 2024-01-24 09:18 | A.OFFVIS_ITS ---
Vital Signs 01/24/24 09:24 Height 5 ft 4 in Weight 196 lb BMI 33.6 Handedness Right Intake Visit Reasons: Preop RT shoulder /poss RTC 01/30/24 NE Intake Note: Osvaldo is a 63 year old right hand dominant male who presents today for a pre op appointment for his RT shoulder /poss RTC 01/30/24 NE. Dealership Manager Services: Dealership Manager Present (Odell ([phone])) Allergies No Known Allergies Allergy (Verified 01/04/24 09:53) HPI HPI Preop RT shoulder /poss RTC 01/30/24 NE: Details: 63-year-old right hand dominant male, who is Monegasque speaking, presents in the office today for his preoperative history and physical exam prior to a right shoulder arthroscopy with possible rotator cuff repair and subacromial decompression to be performed on 01/30/[address] Eddie Mcmillan.? ? Patient has no known allergy history.? ? Patient is currently taking, as follows:? -Acetaminophen 1,000 mg PO Q6H PRN? -Albuterol sulfate 5 mg inhalation Q4H PRN? -Amlodipine 10 mg PO daily? -Aspirin 81 mg PO daily? -Atorvastatin 80 mg PO bedtime? -Bisacodyl 10 mg PO bedtime? -Carvedilol 6.25 mg PO BID? -Cholecalciferol 50 mcg PO QAM? -Cilostazol 100 mg PO BID? -Docusate sodium 100 mg PO bedtime? -Famotidine 20 mg PO bedtime? -Fluticasone propionate 110 mcg/actuation 2 puffs inhalation BID? -Gabapentin 300 mg PO daily? -Glucose 8 grams PO Q15M PRN? -Insulin glargine 34 units subcut QPM? -Pantoprazole 20 mg PO daily? -Risperidone 3 mg PO bedtime? -Tirzepatide 5 mg subcut QWeek? -Tramadol 50 mg PO TID PRN? ? Patient has a medical history, as follows:? -Polymyalgia? -Stable angina? -Erectile dysfunction associated with type 2 diabetes mellitus? -Prostatitis? -PVD (peripheral vascular disease)? -CAD (coronary artery disease)? -Chronic idiopathic constipation? -Tubular adenoma? -Scrotal edema? -Asthma? -Hyperlipidemia? -IBS? -Benign prostatic hyperplasia without lower urinary tract symptoms? -GERD (gastroesophageal reflux disease)? -Chronic kidney disease? -Myocardial infarct, old? -Diabetes mellitus? ? Patient has a surgical history, as follows:? -Hx of aorto-femoral bypass? -Hx of coronary artery stent placement x4? -Hx of coronary angioplasty? -Hx of ligation of vein? -Hx of esophagogastroduodenoscopy (EGD); 10/05/22 [facility] Ceja? -Hx of colonoscopy; 10/05/22 [facility] Ceja? -Hx of arthroscopic knee surgery; 2010? ? Patient has a social history, as follows:? 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 [facility] Medical History (Updated 01/21/24 @ 09:51 by Jolene Hyatt RN) Arthritis Asthma Peripheral arterial occlusive disease Hyperlipidemia IBS (irritable bowel syndrome) Benign prostatic hyperplasia without lower urinary tract symptoms GERD (gastroesophageal reflux disease) Chronic kidney disease Acute kidney failure Abdominal bloating Painful arc syndrome of right shoulder Chronic idiopathic constipation Tubular adenoma Myocardial infarct, old Diabetes PVD (peripheral vascular disease) CAD (coronary artery disease) Family history of prostate cancer Scrotal swelling Elevated PSA Surgical History Hx of aorto-femoral bypass History of coronary artery stent placement Hx of coronary angioplasty Hx of ligation of vein History of esophagogastroduodenoscopy (EGD) Hx of colonoscopy Hx of arthroscopic knee surgery History of surgery History of vascular surgery History of cardiac cath Family History Maternal Grandmother Diabetes Paternal Grandmother Diabetes Brother Diabetes Mother No problems noted. 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) Alcohol intake: never Patient Tobacco Use Status: Former Tobacco user Years Smoked: 35+ Current occupational status: disabled Current occupation: right hand dominant Review of Systems Const All systems reviewed & are unremarkable except as noted in HPI and below Physical Exam Vital Signs: BMI result Body Mass Index 33.6 Const General: cooperative, healthy appearing, comfortable, no acute distress, well developed, alert and awake Orientation/consciousness: patient oriented x3 HEENT Head: Yes normal to inspection, Yes normocephalic and Yes atraumatic Eyes General: appearance normal, both eyes and all related structures Neck Neck: Yes normal visual inspection and Yes no lymphadenopathy Resp Effort & Inspection: normal respiratory effort and able to speak in complete sentences Cardio Rate: regular rate Peripheral pulses: Peripheral pulses 2+ throughout GI Inspection: Yes normal to inspection Palpation (GI): Soft to palpation Skin General skin exam: no rashes or lesions noted Neuro General: patient oriented x3 Extrem Other: Right shoulder: Skin is clean, dry, and intact. 35/70/120/S1 Positive Encarnacion and Neer 4+/5 painful empty can Psych Mental Status: mental status grossly normal Assessment & Plan Assessment & Plan (1) Tendinosis of right shoulder: Code(s): M67.813 - Other specified disorders of tendon, right shoulder Category: Medical Plan Mr. Andrea Brito is a 63-year-old right hand dominant male, who is Monegasque speaking, presents in the office today for his preoperative history and physical exam prior to a right shoulder arthroscopy with possible rotator cuff repair and subacromial decompression to be performed on 01/30/[address] Eddie Mcmillan.? ? Patient has no known allergy history.? ? Patient is currently taking, as follows:? -Acetaminophen 1,000 mg PO Q6H PRN? -Albuterol sulfate 5 mg inhalation Q4H PRN? -Amlodipine 10 mg PO daily? -Aspirin 81 mg PO daily? -Atorvastatin 80 mg PO bedtime? -Bisacodyl 10 mg PO bedtime? -Carvedilol 6.25 mg PO BID? -Cholecalciferol 50 mcg PO QAM? -Cilostazol 100 mg PO BID? -Docusate sodium 100 mg PO bedtime? -Famotidine 20 mg PO bedtime? -Fluticasone propionate 110 mcg/actuation 2 puffs inhalation BID? -Gabapentin 300 mg PO daily? -Glucose 8 grams PO Q15M PRN? -Insulin glargine 34 units subcut QPM? -Pantoprazole 20 mg PO daily? -Risperidone 3 mg PO bedtime? -Tirzepatide 5 mg subcut QWeek? -Tramadol 50 mg PO TID PRN? ? Patient has a medical history, as follows:? -Polymyalgia? -Stable angina? -Erectile dysfunction associated with type 2 diabetes mellitus? -Prostatitis? -PVD (peripheral vascular disease)? -CAD (coronary artery disease)? -Chronic idiopathic constipation? -Tubular adenoma? -Scrotal edema? -Asthma? -Hyperlipidemia? -IBS? -Benign prostatic hyperplasia without lower urinary tract symptoms? -GERD (gastroesophageal reflux disease)? -Chronic kidney disease? -Myocardial infarct, old? -Diabetes mellitus? ? Patient has a surgical history, as follows:? -Hx of aorto-femoral bypass? -Hx of coronary artery stent placement x4? -Hx of coronary angioplasty? -Hx of ligation of vein? -Hx of esophagogastroduodenoscopy (EGD); 10/05/22 [facility] Ceja? -Hx of colonoscopy; 10/05/22 [facility] Ceja? -Hx of arthroscopic knee surgery; 2010? ? Patient has a social history, as follows:? 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 ? I discussed in detail the procedure and what to expect pre and post operatively. We discussed the risks, benefits, alternatives to the surgery and the rehabilitation course. The risks include infection, bleeding, nerve injury, ongoing pain, swelling, and stiffness, perioperative risk of injury to bones and soft tissues, and blood clots.?? ? I have answered all questions and with their understanding they have consented to move forward with a right shoulder arthroscopy with possible rotator cuff repair and subacromial decompression to be performed on 01/30/[address] Eddie Mcmillan.? ? Post operative medications were sent to the pharmacy, oxycodone-acetaminophen 5- 325 mg (Percocet) PO Q4-6H PRN, quantity 42 tabs for 7 days and morphine ER 15 mg (MS Contin) PO Q12H PRN, quantity 6 tabs for 3 days, while in the office today. The patient was instructed that he should obtain the prescription prior to surgery but should not consume until after the procedure; as these should only be taken for post operative pain management. Should the patient take these medications before surgery, a refill will not be sent to the pharmacy until eir scheduled refill date.? ? Follow-up will be at the post operative appointment on 02/07/24, or sooner if needed.? Patient Instructions: Scribed by [facility] adjunct faculty for medical terminology, for Yasmin Pavon PA-C on 01/24/2024 at 8:43 am, EST.? Coding Level of Care Code Global (96620) Diagnoses Tendinosis of right shoulder M67.813
[2024-01-24 09:24] VITALS: BMI 33.6
== END 2024-01-24 09:43 | disposition home or self-care (01) ==
PROVIDERS: PCP Internal Medicine; Visit Provider Physician Assistant
DX: M67.813 Other specified disorders of tendon, right shoulder (principal)
CPT/HCPCS: 99024

== ENCOUNTER → 2024-01-24 08:36 | Outpatient (BNVA) | payer MEDICAID, SELFPAY | PROVIDERS: PCP Internal Medicine; Visit Provider Physician Assistant | DX: Z01.818 Encounter for other preprocedural examination (principal); M67.813 Other specified disorders of tendon, right shoulder | CPT/HCPCS: 99212 ==

== ENCOUNTER 2024-01-30 05:52 | Day surgery (SDC) | payer MEDICAID, SELFPAY ==
[2024-01-21 10:22] VITALS: BP 178/81; PULSE 65; RESP 18; O2SAT 99; BMI 33.5
--- NOTE | 2024-01-24 13:21 | HO.ANESPROP2 ---
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 No anginal symptoms. He needs shoulder surgery and can proceed with intermediate risk for perioperative cardiovascular complications. [facility] Active Problems Active Problems: All Active Problems Polymyalgia (Acute) Stable angina (Acute) Erectile dysfunction associated with type 2 diabetes mellitus (Acute) Tendinosis of right shoulder (Acute) Chronic right shoulder pain (Acute) Injury of right rotator cuff (Acute) Prostatitis (Acute) PVD (peripheral vascular disease) (Acute) Abnormal stress test (Acute) Preop cardiovascular exam (Acute) CAD (coronary artery disease) (Acute) Chest pain (Acute) Painful arc syndrome of right shoulder (Acute) Chronic idiopathic constipation (Acute) Tubular adenoma (Acute) Family history of prostate cancer (Acute) Scrotal swelling (Acute) Elevated PSA (Acute) Past Medical History Medical History Arthritis Asthma Peripheral arterial occlusive disease Hyperlipidemia IBS (irritable bowel syndrome) Benign prostatic hyperplasia without lower urinary tract symptoms GERD (gastroesophageal reflux disease) Chronic kidney disease Acute kidney failure Abdominal bloating Painful arc syndrome of right shoulder Chronic idiopathic constipation Tubular adenoma Myocardial infarct, old Diabetes PVD (peripheral vascular disease) CAD (coronary artery disease) Family history of prostate cancer Scrotal swelling Elevated PSA Family History Family History Maternal Grandmother Diabetes Paternal Grandmother Diabetes Brother Diabetes Mother No problems noted. 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 If so, by whom?: No Are you DNR?: No Advance Directives: No Advance Directives Information Provided: Yes Advance Directives on File: No Recently lost weight without trying: No Eating poorly because of decreased appetite: No Nutrition Risks: No Nutritional Risk Poor oral hygiene: Yes (lower dentures) Current occupational status: disabled Current occupation: right hand dominant Meds Allergies Allergy/AdvReac Type Severity Reaction Status Date / Time No Known Allergies Allergy Verified 01/30/24 06:48 Home Medications ?Medication ?Instructions ?Recorded ?Confirmed ?Last Taken ?Type albuterol sulfate 2.5 mg/0.5 mL 5 mg inhalation Q4H PRN Shortness 11/11/20 01/23/24 08/16/21 History solution for nebulization Of Breath Or Wheezing amlodipine 10 mg tablet (Norvasc) 10 mg PO DAILY 11/11/20 01/23/24 01/30/24 05:00 History aspirin 81 mg tablet,delayed 81 mg PO DAILY 11/11/20 01/23/24 01/30/24 05:00 History release (Adult Low Dose Aspirin) atorvastatin 80 mg tablet 80 mg PO BEDTIME 11/11/20 01/23/24 03/08/22 History blood sugar diagnostic (FreeStyle #10 ea 11/11/20 12/06/23 Unknown History Lite Strips) cilostazol 100 mg tablet 100 mg PO BID 11/11/20 01/23/24 03/08/22 History glucose 4 gram chewable tablet 8 g PO Q15M PRN Hypoglycemia 11/11/20 01/23/24 Unknown History (Dex4 Glucose) carvedilol 6.25 mg tablet 6.25 mg PO BID 07/12/21 01/23/24 01/30/24 05:00 History gabapentin 300 mg capsule 300 mg PO DAILY 07/12/21 01/23/24 01/30/24 05:00 History lancets 28 gauge (TRUEplus Lancets) #100 ea 07/12/21 12/06/23 Unknown History pen needle, diabetic 32 gauge x #50 ea 07/12/21 12/06/23 Unknown History (Pentips) risperidone 3 mg tablet 3 mg PO BEDTIME 07/12/21 01/23/24 Unknown History acetaminophen 500 mg tablet 1,000 mg PO Q6H PRN pain 12/05/22 01/23/24 Unknown History cholecalciferol (vitamin D3) 50 50 mcg PO QAM 12/05/22 01/23/24 Unknown History mcg (2,000 unit) capsule tirzepatide 5 mg/0.5 mL 5 mg subcut QWEEK 12/29/22 01/23/24 01/16/24 History subcutaneous pen injector (Asaro) insulin glargine 100 unit/mL (3 34 unit subcut QPM 04/17/23 01/23/24 Unknown History mL) subcutaneous pen (Lantus Solostar U-100 Insulin) docusate sodium 100 mg capsule 100 mg PO DAILY 01/18/24 01/23/24 Unknown History pantoprazole 20 mg tablet,delayed 20 mg PO DAILY 01/18/24 01/23/24 01/30/24 05:00 History release tramadol 50 mg tablet 50 mg PO TID PRN Pain 01/18/24 01/23/24 Unknown History fluticasone propionate 110 2 puff inhalation BID 01/21/24 01/23/24 Unknown History mcg/actuation HFA aerosol inhaler clopidogrel 75 mg tablet 75 mg QAM 01/30/24 01/30/24 01/22/24 History Exam Height,Weight and Vital Signs: Height 5 ft 4 in Weight 88.451 kg Last Vital Signs Pulse 65 01/21/24 10:22 Resp 18 01/21/24 10:22 BP 178/81 H 01/21/24 10:22 Pulse Ox 99 01/21/24 10:22 O2 Del Method Room Air 01/21/24 10:22 Pertinent Lab Results Pertinent Lab Results: Laboratory Tests 01/18/24 10:54 WBC 6.2 Hgb 12.9 L Hct 38.4 L Plt Count 197 Sodium 143 Potassium 3.3 Chloride 108 Carbon Dioxide 26 BUN 16 Creatinine 1.13 Narrative Narrative: EKG 12/2023 Vent. Rate : 076 BPM Atrial Rate : 076 BPM P-R Int : 160 ms QRS Dur : 084 ms QT Int : 416 ms P-R-T Axes : 032 -36 057 degrees QTc Int : 468 ms Normal sinus rhythm Left axis deviation Cannot rule out Anteroseptal infarct , age undetermined Abnormal ECG When compared with ECG of 23-NOV-2021 18:42, No significant change was found Assessment and Plan Assessment Anesthesia Assessment: Chart Reviewed Final Anesthetic Review Family History of Problems with Anesthesia: No History of Problems with Anesthesia: No Documented by User: Bethany Redd MD 01/30/24 08:35 [facility] Past Medical History Medical History Arthritis Asthma Peripheral arterial occlusive disease Hyperlipidemia IBS (irritable bowel syndrome) Benign prostatic hyperplasia without lower urinary tract symptoms GERD (gastroesophageal reflux disease) Chronic kidney disease Acute kidney failure Abdominal bloating Painful arc syndrome of right shoulder Chronic idiopathic constipation Tubular adenoma Myocardial infarct, old Diabetes PVD (peripheral vascular disease) CAD (coronary artery disease) Family history of prostate cancer Scrotal swelling Elevated PSA Family History Family History Maternal Grandmother Diabetes Paternal Grandmother Diabetes Brother Diabetes Mother No problems noted. 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 If so, by whom?: No Are you DNR?: No Advance Directives: No Advance Directives Information Provided: Yes Advance Directives on File: No Recently lost weight without trying: No Eating poorly because of decreased appetite: No Nutrition Risks: No Nutritional Risk Poor oral hygiene: Yes (lower dentures) Current occupational status: disabled Current occupation: right hand dominant Meds Allergies Allergy/AdvReac Type Severity Reaction Status Date / Time No Known Allergies Allergy Verified 01/30/24 06:48 Home Medications ?Medication ?Instructions ?Recorded ?Confirmed ?Last Taken ?Type albuterol sulfate 2.5 mg/0.5 mL 5 mg inhalation Q4H PRN Shortness 11/11/20 01/23/24 08/16/21 History solution for nebulization Of Breath Or Wheezing amlodipine 10 mg tablet (Norvasc) 10 mg PO DAILY 11/11/20 01/23/24 01/30/24 05:00 History aspirin 81 mg tablet,delayed 81 mg PO DAILY 11/11/20 01/23/24 01/30/24 05:00 History release (Adult Low Dose Aspirin) atorvastatin 80 mg tablet 80 mg PO BEDTIME 11/11/20 01/23/24 03/08/22 History blood sugar diagnostic (FreeStyle #10 ea 11/11/20 12/06/23 Unknown History Lite Strips) cilostazol 100 mg tablet 100 mg PO BID 11/11/20 01/23/24 03/08/22 History glucose 4 gram chewable tablet 8 g PO Q15M PRN Hypoglycemia 11/11/20 01/23/24 Unknown History (Dex4 Glucose) carvedilol 6.25 mg tablet 6.25 mg PO BID 07/12/21 01/23/24 01/30/24 05:00 History gabapentin 300 mg capsule 300 mg PO DAILY 07/12/21 01/23/24 01/30/24 05:00 History lancets 28 gauge (TRUEplus Lancets) #100 ea 07/12/21 12/06/23 Unknown History pen needle, diabetic 32 gauge x #50 ea 07/12/21 12/06/23 Unknown History (Pentips) risperidone 3 mg tablet 3 mg PO BEDTIME 07/12/21 01/23/24 Unknown History acetaminophen 500 mg tablet 1,000 mg PO Q6H PRN pain 12/05/22 01/23/24 Unknown History cholecalciferol (vitamin D3) 50 50 mcg PO QAM 12/05/22 01/23/24 Unknown History mcg (2,000 unit) capsule tirzepatide 5 mg/0.5 mL 5 mg subcut QWEEK 12/29/22 01/23/24 01/16/24 History subcutaneous pen injector (Mounjaro) insulin glargine 100 unit/mL (3 34 unit subcut QPM 04/17/23 01/23/24 Unknown History mL) subcutaneous pen (Lantus Solostar U-100 Insulin) docusate sodium 100 mg capsule 100 mg PO DAILY 01/18/24 01/23/24 Unknown History pantoprazole 20 mg tablet,delayed 20 mg PO DAILY 01/18/24 01/23/24 01/30/24 05:00 History release tramadol 50 mg tablet 50 mg PO TID PRN Pain 01/18/24 01/23/24 Unknown History fluticasone propionate 110 2 puff inhalation BID 01/21/24 01/23/24 Unknown History mcg/actuation HFA aerosol inhaler clopidogrel 75 mg tablet 75 mg QAM 01/30/24 01/30/24 01/22/24 History Exam Airway Mallampati Class: III TM Dist: >3cm Neck ROM: Limited Heart: rrr Lungs: cta Assessment and Plan Assessment Anesthesia Assessment: Anesthesia Plan Discussed Final Anesthetic Review NPO: Yes ASA Class: III Final Preanesthetic Review: No Changes in Pt Med Stat, Meds/Allgs Chart Reviewed, Consent Obtained/Reviewed and Anes Risks/Benef Reviewed Patient Risk: Intermediate Procedure Risk: Intermediate Anesthetic Plan Anesthetic Plan: GA and Regional Block Disposition: Standard PACU
[2024-01-30 06:20] VITALS: BP 160/82; PULSE 75; RESP 16; TEMP 36.8; O2SAT 98
[2024-01-30] MEDS: Lactated Ringers 1,000 ML 100 ML IVCONT (06:47)
[2024-01-30 06:59] LABS: Glucose, Whole Blood 136 mg/dL (60-115)
--- NOTE | 2024-01-30 07:27 | MHC.SHP ---
Pre-Procedural Eval Section A - 24 Hr Update-Section A only Date of Service: 01/30/24 The patient is an INPATIENT: No Changes since office visit: No Cold of Flu in the past 2 weeks, No New Medical Problems, No Changes in Medication and No Patient answered all questions The patient has been examined within 24 hours of the surgical procedure. The History & Physical has been completed within 30 days and I have reviewed it.: Yes Section B - Complete if H&P > 30 days Chief Complaint: Other specified disorders of tendon, right shoulde Allergies: Allergies Allergy/AdvReac Type Severity Reaction Status Date / Time No Known Allergies Allergy Verified 01/30/24 06:48 Plan I have reviewed the history and physical and performed a pertinent physical examination on my patient. No changes have occurred unless specified. Time Spent With Patient Time: Total time managing care of this patient today ____ minutes.
[2024-01-30 09:31] VITALS: BP 132/60; PULSE 61; RESP 16; TEMP 36.1; O2SAT 98
[2024-01-30 09:36] VITALS: BP 133/73; PULSE 63; RESP 16; O2SAT 97
[2024-01-30 09:41] VITALS: BP 136/73; PULSE 63; RESP 18; O2SAT 94
[2024-01-30 09:46] VITALS: BP 134/65; PULSE 62; RESP 18; O2SAT 94
[2024-01-30 10:01] VITALS: BP 145/71; PULSE 61; RESP 18; TEMP 36.3; O2SAT 95
--- NOTE | 2024-02-19 13:14 | PM.OP ---
Brief Operative Note Date of Service: 01/30/24 Pre-op diagnosis: Right RTC tear Post-op diagnosis: same Procedure: Right RTC repair Implants: Henriquez and Nephew 4.75 Helacoil medial row x 1 Henriquez and Nephew Knotless helacoil x 2 Surgeon: Eddie Mcmillan MD Anesthesia: GETA and regional Was an Snowboarding Instructor used for this Procedure?: Yes Snowboarding Instructor: Yasmin Pavon Estimated blood loss (mL): 10 IV fluids (mL): 1,000 Pathology: none sent Condition: stable Disposition: PACU
--- NOTE | 2024-02-19 13:18 | W.PM.OPN ---
Operative Note Operative Note Date of Service: 01/30/24 Narrative: Date of Service: 01/30/24 Pre-op diagnosis: Right RTC tear Post-op diagnosis: same Procedure: Right RTC repair Implants: Henriquez and Nephew 4.75 Helacoil medial row x 1 Henriquez and Nephew Knotless helacoil x 2 Surgeon: Eddie Mcmillan MD Anesthesia: GETA and regional Was an Diesel Maintenance Technician used for this Procedure?: Yes Diesel Maintenance Technician: Yasmin Pavon Estimated blood loss (mL): 10 IV fluids (mL): 1,000 Pathology: none sent Condition: stable Disposition: PACU Procedure in detail: Patient was brought to the operating room and placed the the beach chair position. All bony prominences were well padded and the limb was prepped and draped in standard sterile fashion. A time out was called to identify proper site, proper procedure and proper surgeon. IV antibiotics per weight were administered. I began by making a posterolateral stab incision with a 15 blade. A blunt trochar was placed into the glenohumeral joint and I insufflated the joint with saline and a 30 degree arthroscope was placed. I established an outside- in anterior portal just distal to the biceps tendon. I then began my inspection of the glenohumeral joint. There was a an intact biceps anchor.. There were minimal cartilage changes at the inferior glenoid without humeral head changes. There was a evidence of full thickness undersurface RTC tear. The subcapularis was intact. I debrided the loose cartilage of the glenoid and the degenerative labral tearing. I then removed the trochar and entered the subacromial space. A direct lateral portal was then established and I performed a bursectomy. The cuff was then examined. There was a small full thickness tear of the supraspinatus without retraction. The tear was mobile. I placed one medial row double loaded anchor after using a tap just adjacent to the articular cartilage and then brought the suture limbs (4) through the medial cuff. I then debrided the bare area down to bleeding bone and, using a cross bridge configuration, brought 2 limbs to each of two lateral 5.0 anchors. This re-approximated the cuff anatomy anatomically. Once I was satisfied with the repair final images were captured and I removed all instrumentation. Portals were closed with nylon. Patient was placed in an abduction sling, extubated and brought to the recovery room in stable condition. There were no known complications.
== END 2024-01-30 11:14 | disposition home or self-care (01) ==
PROVIDERS: PCP Internal Medicine; Visit Provider Orthopaedic Surgery
PROC: (CPT 29805; principal; 2024-01-30 07:30)
DX: M75.101 Unspecified rotator cuff tear or rupture of right shoulder, not specified as traumatic (principal); M67.813 Other specified disorders of tendon, right shoulder; G89.29 Other chronic pain; M75.81 Other shoulder lesions, right shoulder; S43.431A Superior glenoid labrum lesion of right shoulder, initial encounter; Y99.9 Unspecified external cause status; M25.411 Effusion, right shoulder; M19.011 Primary osteoarthritis, right shoulder; E11.22 Type 2 diabetes mellitus with diabetic chronic kidney disease; N18.9 Chronic kidney disease, unspecified; I73.9 Peripheral vascular disease, unspecified; I25.10 Atherosclerotic heart disease of native coronary artery without angina pectoris; Z95.5 Presence of coronary angioplasty implant and graft; I25.2 Old myocardial infarction; Z79.02 Long term (current) use of antithrombotics/antiplatelets; Z79.4 Long term (current) use of insulin; Z79.82 Long term (current) use of aspirin; Z79.51 Long term (current) use of inhaled steroids; Z79.899 Other long term (current) drug therapy; Z98.890 Other specified postprocedural states; Z87.891 Personal history of nicotine dependence
CPT/HCPCS: 29827; 29822; 82947; C1713; J0131; J0171; J0665; J0690; J1100; J2250; J2405; J2704; J3010

== ENCOUNTER → 2024-01-30 05:52 | Outpatient (BNV) | payer MEDICAID, SELFPAY | PROVIDERS: PCP Internal Medicine; Visit Provider Orthopaedic Surgery | DX: M75.121 Complete rotator cuff tear or rupture of right shoulder, not specified as traumatic (principal) | CPT/HCPCS: 29827 ==

== ENCOUNTER 2024-02-07 13:44 | Outpatient (AMB) | payer MEDICAID, SELFPAY ==
--- NOTE | 2024-02-07 13:58 | A.OFFVIS_ITS ---
Intake Visit Reasons: PO - right RTC repair 01/30/24 NE Intake Note: Osvaldo is a 63 year old male who presents today for a post op appointment s/p right RTC repair 01/30/24 NE. Patient reports he is doing well, having some pain on the incision sites. Allergies No Known Allergies Allergy (Verified 01/30/24 06:48) HPI HPI PO - right RTC repair 01/30/24 NE: Details: 63-year-old right hand dominant male, who is Polish speaking, presents in the office today 8 days status post right shoulder medium rotator cuff repair, which was performed on 01/30/[address] Mcmillan.? ? While in the office today, the patient reports he is doing well with some pain at the incision sites. ? PFSH Medical History Arthritis Asthma Peripheral arterial occlusive disease Hyperlipidemia IBS (irritable bowel syndrome) Benign prostatic hyperplasia without lower urinary tract symptoms GERD (gastroesophageal reflux disease) Chronic kidney disease Acute kidney failure Abdominal bloating Painful arc syndrome of right shoulder Chronic idiopathic constipation Tubular adenoma Myocardial infarct, old Diabetes PVD (peripheral vascular disease) CAD (coronary artery disease) Family history of prostate cancer Scrotal swelling Elevated PSA Surgical History Hx of aorto-femoral bypass History of coronary artery stent placement Hx of coronary angioplasty Hx of ligation of vein History of esophagogastroduodenoscopy (EGD) Hx of colonoscopy Hx of arthroscopic knee surgery History of surgery History of vascular surgery History of cardiac cath Family History Maternal Grandmother Diabetes Paternal Grandmother Diabetes Brother Diabetes Mother No problems noted. 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) Alcohol intake: never Patient Tobacco Use Status: Former Tobacco user Years Smoked: 35+ Current occupational status: disabled Current occupation: right hand dominant Review of Systems Const All systems reviewed & are unremarkable except as noted in HPI and below Physical Exam Const General: cooperative, healthy appearing and no acute distress Resp Effort & Inspection: normal respiratory effort and able to speak in complete sentences Cardio Rate: regular rate Peripheral pulses: Peripheral pulses 2+ throughout GI Palpation (GI): Soft to palpation Skin Lesions: no lesions Rashes: no rashes Extrem Other: Right shoulder: Incision site is clean, dry, and intact. Sutures are intact. No surrounding erythema or drainage. No signs of infection. ? Assessment & Plan Assessment & Plan (1) Tendinosis of right shoulder: Code(s): M67.813 - Other specified disorders of tendon, right shoulder Category: Medical Plan Mr. Andrea Brito is a 63-year-old right hand dominant male, who is Polish speaking, presents in the office today 8 days status post right shoulder medium rotator cuff repair, which was performed on 01/30/[address] Mcmillan.? ? While in the office today, the patient reports he is doing well with some pain at the incision sites.? ? Sutures were removed and steri-stripes were applied. He will attend physical therapy and follow the medium rotator cuff repair protocol. He will remain in the sling for six weeks post-op. Follow-up will be in four weeks with Dr. Mcmillan, or sooner if needed. ? Orders: Orders PT Evaluation and Treatment Today Z98.890 - Other specified postprocedural states Patient Instructions: Scribed by [facility] medical information specialist, for Yasmin Pavon PA-C on 02/07/2024 at 2:08 pm, EST.? Coding Level of Care Code Global (67022) Diagnoses Tendinosis of right shoulder M67.813
== END 2024-02-07 15:40 | disposition home or self-care (01) ==
PROVIDERS: PCP Internal Medicine; Visit Provider Physician Assistant
DX: M67.813 Other specified disorders of tendon, right shoulder (principal)
CPT/HCPCS: 99213

== ENCOUNTER → 2024-02-07 13:44 | Outpatient (BNVA) | payer MEDICAID, SELFPAY | PROVIDERS: PCP Internal Medicine; Visit Provider Physician Assistant | DX: M67.813 Other specified disorders of tendon, right shoulder (principal) | CPT/HCPCS: 99212 ==

== ENCOUNTER 2024-02-11 14:30 | Outpatient (AMB) | payer MEDICAID, SELFPAY ==
--- NOTE | 2024-02-11 14:52 | MHC.OFFVIS ---
Intake Visit Reasons: TRIMIX injection appt Intake Note: Patient presents today for Trimex injection teaching Urology Medications: none Blood Thinner: aspirin and clopidogrel Conservation Science Officer Required: Yes Conservation Science Officer Name: [id number] Accompanied by: Self / Same As Patient Allergies No Known Allergies Allergy (Verified 02/11/24 15:14) Medication List - Last Reconciled 02/11/24 by OLAF Nelson acetaminophen 1,000 mg PO Q6H PRN albuterol sulfate 5 mg inhalation Q4H PRN amlodipine (Norvasc) 10 mg PO DAILY aspirin (Adult Low Dose Aspirin) 81 mg PO DAILY atorvastatin 80 mg PO BEDTIME bisacodyl (Dulcolax (bisacodyl)) 10 mg (2 x 5 mg) PO BEDTIME blood sugar diagnostic (FreeStyle Lite Strips) As directed carvedilol 6.25 mg PO BID cholecalciferol (vitamin D3) 50 mcg PO QAM cilostazol 100 mg PO BID clopidogrel 75 mg QAM docusate sodium 100 mg PO DAILY docusate sodium (Colace) 100 mg PO BID 30 days famotidine (Pepcid) 20 mg PO BEDTIME fluticasone propionate 110 mcg/actuation 2 puffs inhalation BID gabapentin 300 mg PO DAILY glucose (Dex4 Glucose) 8 grams PO Q15M PRN insulin glargine (Lantus Solostar U-100 Insulin) 34 units subcut QPM lancets (TRUEplus Lancets) As directed morphine ER (MS Contin) 15 mg PO Q12H 3 days oxycodone-acetaminophen 5-325 mg 1 tab PO Q4-6H PRN 30 days pantoprazole 20 mg PO DAILY pen needle, diabetic (Pentips) As directed risperidone 3 mg PO BEDTIME tirzepatide (Mounjaro) 5 mg subcut QWEEK tramadol 50 mg PO TID PRN HPI Comments Details: Osvaldo is a pleasant 63-year-old Syrian speaking male patient of Dr Tinajero. He has a past medical history of chronic idiopathic constipation, HI, diabetes, PVD, CAD, and elevated PSA. He presents to the office today for follow-up of his ED and was to undergo teaching for penile injection however patient discusses recent surgical intervention 01/[address] Mcmillan for right RTC repair and currently is unable to utilize his right hand and arm. He discusses upcoming therapy for this issue. We discussed Education today however given patient will be unable to attempt at home for the next 3 months given his recovery he would like to reschedule penile injection therapy. He otherwise denies any bothersome urinary issues or concerns at this time. We did review penile injection therapy teaching packet. Information provided. Patient previously trialed daily dosing of Cialis with p.r.n. dosing of Cialis and or Viagra without improvement. Previous workup has included Testosterone 06/20 395 Free Tesosterone 53.3%. Discussed at length potential causes for erectile dysfunction. Discussed at length importance of managing diabetes for improvement in erectile dysfunction as well as for overall health and well being. 06/20 A1c 5.6. When asked he denies urinary urgency, urinary frequency, incontinence, nocturia, hematuria, dysuria, foul smelling urine, changes to urinary stream, flank pain, fever, and or chills. He is happy with his current voiding parameters. In office urinalysis results reviewed with the patient today. PSAs are as follows: PSAs: 01/15 0.2, 07/19 0.2, 07/20 0.2, 09/18 0.2 PFSH Medical History Arthritis Asthma Peripheral arterial occlusive disease Hyperlipidemia IBS (irritable bowel syndrome) Benign prostatic hyperplasia without lower urinary tract symptoms GERD (gastroesophageal reflux disease) Chronic kidney disease Acute kidney failure Abdominal bloating Painful arc syndrome of right shoulder Chronic idiopathic constipation Tubular adenoma Myocardial infarct, old Diabetes PVD (peripheral vascular disease) CAD (coronary artery disease) Family history of prostate cancer Scrotal swelling Elevated PSA Surgical History Hx of aorto-femoral bypass History of coronary artery stent placement Hx of coronary angioplasty Hx of ligation of vein History of esophagogastroduodenoscopy (EGD) Hx of colonoscopy Hx of arthroscopic knee surgery History of surgery History of vascular surgery History of cardiac cath Family History Maternal Grandmother Diabetes Paternal Grandmother Diabetes Brother Diabetes Mother No problems noted. 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) Alcohol intake: never Patient Tobacco Use Status: Former Tobacco user Years Smoked: 35+ Current occupational status: disabled Current occupation: right hand dominant Review of Systems Const All systems reviewed & are unremarkable except as noted in HPI and below Reports as per HPI Eyes Reports no additional complaints ENT Reports no additional complaints Card Reports as per HPI Resp Reports no additional complaints GI Reports as per HPI Reports as per HPI Musc Reports as per HPI Neuro Reports no additional complaints Psych Reports no additional complaints Endo Reports as per HPI Shan/Lymph Reports no additional complaints Aller/Immun Reports no additional complaints Physical Exam Const General: cooperative, healthy appearing, comfortable, no acute distress, well developed, alert and awake Nutritional Appearance: overweight Orientation/consciousness: patient oriented x3 Limitations: no limitations HEENT Head: Yes normal to inspection, Yes normocephalic and Yes atraumatic Ears: hearing grossly normal bilaterally Eyes General: appearance normal, both eyes and all related structures Neck Neck: Yes normal visual inspection and Yes trachea midline Chest Chest palpation & inspection: normal inspection of the chest Resp Effort & Inspection: normal respiratory effort and able to speak in complete sentences Cardio Rate: regular rate GI Inspection: Yes normal to inspection General: Yes no CVA tenderness Back/Spine/Pelvis Back: no CVA tenderness Skin General skin exam: no rashes or lesions noted Neuro General: patient oriented x3 Extrem General: Yes normal to inspection Psych Appearance: grossly normal and well kempt Mental Status: mental status grossly normal Speech and movement: Normal speech and movement present and Clear speech present Affect: normal affect Attitude: cooperative Thought process: Normal thought process present Thought content: Normal thought content present Insight: Fair insight present (Psych) Judgement: Fair judgement present (Psych) Assessment & Plan Assessment & Plan (1) Erectile dysfunction associated with type 2 diabetes mellitus: Code(s): E11.69 - Type 2 diabetes mellitus with other specified complication; N52.1 - Erectile dysfunction due to diseases classified elsewhere Category: Medical Plan In office urinalysis results reviewed with the patient today; as noted above. Discussed at length potential causes of erectile dysfunction. Penile injection Education discussed. Discussed lifestyle modifications to assist with erectile dysfunction. Discussed, stress, and educated on the importance of managing diabetes for improvement in ED as well as overall health and well-being. Patient currently denies any bothersome urinary issues or concerns. Patient reports be happy with current voiding parameters. Will reschedule for penile injection teaching in 2-3 months given patient's recent shoulder surgery and is unable to give self-injection at this time. Patient Instructions: The patient had an opportunity to ask questions regarding the treatment plan. All questions were answered. Physical exam, labs, and imaging were discussed and reviewed in detail. As well as risks, benefits, and discussion of treatment choices. No major barriers to understanding were identified. The patient expressed understanding and agreement with the above treatment plan. The patient was made aware they should contact our office by phone for worsening of their current condition, the appearance of new symptoms, or with any questions or concerns. Compliance is encouraged with any medications and follow up testing that is ordered. It is a privilege to be allowed the opportunity to participate in? your urological care.? Again, if you have any questions or concerns If you have any questions or concerns please do not hesitate to contact me. The office is [phone]. This note is constructed using voice recognition software. While every effort has been made to ensure accuracy tower crane operator errors may have been included. Yours sincerely, OLAF Nelson Coding Level of Care Code Est Pt Level 3 (79490) Complex EM visit Add On G2211 Diagnoses Erectile dysfunction associated with type 2 diabetes mellitus E11.69; N52.1 Time Spent (min) 20
== END 2024-02-11 15:19 | disposition home or self-care (01) ==
LOC: HO.HUSH 14:30
PROVIDERS: PCP Internal Medicine; Visit Provider Nurse Practitioner Family
DX: E11.69 Type 2 diabetes mellitus with other specified complication (principal); N52.1 Erectile dysfunction due to diseases classified elsewhere
CPT/HCPCS: 99213

== ENCOUNTER → 2024-02-11 14:30 | Outpatient (BNVA) | payer MEDICAID, SELFPAY | PROVIDERS: PCP Internal Medicine; Visit Provider Nurse Practitioner Family | DX: E11.69 Type 2 diabetes mellitus with other specified complication (principal); N52.1 Erectile dysfunction due to diseases classified elsewhere | CPT/HCPCS: 99212 ==

== ENCOUNTER 2024-02-20 10:25 | Outpatient (AMB) | payer MEDICAID, SELFPAY ==
[2024-02-20 10:43] VITALS: BP 140/72; PULSE 66; O2SAT 98; BMI 33.3
--- NOTE | 2024-02-20 10:43 | MHC.OFFVIS ---
Vital Signs 02/20/24 10:43 Height 5 ft 4 in Weight 194 lb 0.108 oz BMI 33.3 BP 140/72 H Blood Pressure Location Lt brachial Position Sitting Pulse 66 Pulse Source Pulse Oximeter Pulse Oximetry (%) 98 Oxygen Delivery Method Room Air Intake Visit Reasons: PMR Intake Note: Patient presents as a new patient, referred internally by Barber Richardson with dx of PMR . Patient complains of pain in right shoulder, and left arm. Patient takes Oxycodone from the surgery he had. Research And Development Engineer Required: Yes Research And Development Engineer Name: Cheri [id number] Allergies No Known Allergies Allergy (Verified 02/20/24 10:45) HPI Comments Details: This is a 63-year-old male who presents for evaluation of potential underlying autoimmune rheumatic disease. Patient has been having right shoulder pain for some time now. He was evaluated by Orthopedics. He received multiple steroid injections. He stated that they stopped helping. Eventually he had arthroscopic right rotator cuff repair a few weeks ago. He is still wearing a sling. States that he also has left shoulder pain. He denies any swollen joints. He denies any significant morning stiffness. He is unaware of any family history of an autoimmune rheumatic disease. [facility] Medical History Arthritis Asthma Peripheral arterial occlusive disease Hyperlipidemia IBS (irritable bowel syndrome) Benign prostatic hyperplasia without lower urinary tract symptoms GERD (gastroesophageal reflux disease) Chronic kidney disease Acute kidney failure Abdominal bloating Painful arc syndrome of right shoulder Chronic idiopathic constipation Tubular adenoma Myocardial infarct, old Diabetes PVD (peripheral vascular disease) CAD (coronary artery disease) Family history of prostate cancer Scrotal swelling Elevated PSA Surgical History Hx of aorto-femoral bypass History of coronary artery stent placement Hx of coronary angioplasty Hx of ligation of vein History of esophagogastroduodenoscopy (EGD) Hx of colonoscopy Hx of arthroscopic knee surgery History of surgery History of vascular surgery History of cardiac cath Family History Maternal Grandmother Diabetes Paternal Grandmother Diabetes Brother Diabetes Mother No problems noted. 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) Alcohol intake: never Patient Tobacco Use Status: Former Tobacco user Years Smoked: 35+ Current occupational status: disabled Current occupation: right hand dominant Review of Systems Const Denies fever(s) Musc Reports arthralgias, Denies joint swelling and Reports limited range of motion Physical Exam Vital Signs: Last Vital Signs Pulse 66 02/20/24 10:43 BP 140/72 H 02/20/24 10:43 Pulse Ox 98 02/20/24 10:43 Oxygen Delivery Method Room Air 02/20/24 10:43 BMI result Body Mass Index 33.3 Const General: cooperative, healthy appearing and comfortable Nutritional Appearance: obese Orientation/consciousness: patient oriented x3 Limitations: no limitations HEENT Head: Yes normocephalic and Yes atraumatic Mouth: moist mucous membranes Resp Effort & Inspection: normal respiratory effort and able to speak in complete sentences Cardio Rate: regular rate Skin Other: [place] flaky rashes on both hands. (psoriasis versus eczema) Neuro General: patient oriented x3 Extrem Other: No active synovitis Right upper extremity in a sling No swollen joints noted Normal range of motion of left shoulder No active synovitis Normal nailfold capillaroscopy No knee swelling or warmth noted bilaterally No knee pain with flexion-extension bilaterally No ankle swelling or tenderness bilaterally Assessment & Plan Assessment & Plan (1) Bilateral shoulder pain: Code(s): M25.511 - Pain in right shoulder; M25.512 - Pain in left shoulder Category: Medical Qualifiers: Chronicity: chronic Qualified Code(s): M25.511 - Pain in right shoulder; M25.512 - Pain in left shoulder; G89.29 - Other chronic pain Plan: This is a 63-year-old male is referred by Orthopedics for evaluation of an underlying autoimmune rheumatic disease. Has been having bilateral shoulder pain, worse on the right, evaluation showed a right rotator cuff tear. He failed conservative management and had arthroscopic surgery a few weeks ago. Upon evaluation I do not see any signs suggestive of an autoimmune rheumatic disease. Picture rather consistent with generalized osteoarthritis. He has rashes on his hands that are suspicious for psoriasis versus eczema. Discussed symptoms and signs that are suggestive of an autoimmune rheumatic disease. Advised patient to return as needed Plan I spent 30 minutes reviewing patient's chart, evaluating patient, counseling patient and documenting in the chart Coding Level of Care Code New Pt Level 3 (71268) Diagnoses Chronic pain of both shoulders M25.511; M25.512; G89.29 Chronicity: chronic
== END 2024-02-20 11:06 | disposition home or self-care (01) ==
PROVIDERS: PCP Internal Medicine; Visit Provider Student in an Organized Health Care Education/Training Program
DX: M25.511 Pain in right shoulder (principal); M25.512 Pain in left shoulder; G89.29 Other chronic pain
CPT/HCPCS: 99203

== ENCOUNTER → 2024-02-20 10:25 | Outpatient (BNVA) | payer MEDICAID, SELFPAY | PROVIDERS: PCP Internal Medicine; Visit Provider Student in an Organized Health Care Education/Training Program | DX: M25.511 Pain in right shoulder (principal); M25.512 Pain in left shoulder; G89.29 Other chronic pain | CPT/HCPCS: 99202 ==

== ENCOUNTER 2024-03-06 09:26 | Outpatient (AMB) | payer MEDICAID, SELFPAY ==
--- NOTE | 2024-03-06 09:51 | A.OFFVIS_ITS ---
Vital Signs 03/06/24 09:52 Height 5 ft 4 in Weight 194 lb BMI 33.3 Intake Visit Reasons: PO - right RTC repair 01/30/24 NE Intake Note: Osvaldo is a 63 year old male that presents today for a right RTC repair 01/30/24 NE. Net Developer Architect Name: [id number] [id number] Allergies No Known Allergies Allergy (Verified 03/06/24 09:54) HPI HPI PO - right RTC repair 01/30/24 NE: Details: 63-year-old right hand dominant male, who is Latvian speaking, presents in the office today a one month status post right shoulder medium rotator cuff repair, which was performed on 01/30/[address] Mcmillan. I last saw the patient in the office on 02/07/24, when he was recommended to remain in the sling for six weeks post-op and was referred to physical therapy. He was seen by Dr. Monroy, Rheumatology, on 02/20/24 for bilateral shoulder pain. He was informed that his signs and symptoms are suggestive of an autoimmune rheumatic disease. While in the office today, the patient reports mild discomfort in the right shoulder; however, he is doing well. He is wearing the sling as appropriate. He is attending physical therapy. The patient has a medical history of diabetes mellitus and CAD. [facility] Medical History Arthritis Asthma Peripheral arterial occlusive disease Hyperlipidemia IBS (irritable bowel syndrome) Benign prostatic hyperplasia without lower urinary tract symptoms GERD (gastroesophageal reflux disease) Chronic kidney disease Acute kidney failure Abdominal bloating Painful arc syndrome of right shoulder Chronic idiopathic constipation Tubular adenoma Myocardial infarct, old Diabetes PVD (peripheral vascular disease) CAD (coronary artery disease) Family history of prostate cancer Scrotal swelling Elevated PSA Surgical History Hx of aorto-femoral bypass History of coronary artery stent placement Hx of coronary angioplasty Hx of ligation of vein History of esophagogastroduodenoscopy (EGD) Hx of colonoscopy Hx of arthroscopic knee surgery History of surgery History of vascular surgery History of cardiac cath Family History Maternal Grandmother Diabetes Paternal Grandmother Diabetes Brother Diabetes Mother No problems noted. 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) Alcohol intake: never Patient Tobacco Use Status: Former Tobacco user Years Smoked: 35+ Current occupational status: disabled Current occupation: right hand dominant Review of Systems Const All systems reviewed & are unremarkable except as noted in HPI and below Physical Exam Vital Signs: BMI result Body Mass Index 33.3 Const General: cooperative, healthy appearing and no acute distress Resp Effort & Inspection: normal respiratory effort and able to speak in complete sentences Cardio Rate: regular rate Peripheral pulses: Peripheral pulses 2+ throughout GI Palpation (GI): Soft to palpation Skin Lesions: no lesions Rashes: no rashes Extrem Other: Right shoulder: Incision sites are clean, dry and intact. No signs of injection. 80 degrees of forward flexion and abduction. Able to reach greater troch. NVI. Assessment & Plan Assessment & Plan (1) Tendinosis of right shoulder: Code(s): M67.813 - Other specified disorders of tendon, right shoulder Category: Medical Plan Mr. Andrea Brito is a 63-year-old right hand dominant male, who is Latvian speaking, presents in the office today a one month status post right shoulder medium rotator cuff repair, which was performed on 01/30/[address] Mcmillan. I last saw the patient in the office on 02/07/24, when he was recommended to remain in the sling for six weeks post-op and was referred to physical therapy. He was seen by Dr. Monroy, Rheumatology, on 02/20/24 for bilateral shoulder pain. He was informed that his signs and symptoms are suggestive of an autoimmune rheumatic disease. While in the office today, the patient reports mild discomfort in the right shoulder; however, he is doing well. He is wearing the sling as appropriate. He is attending physical therapy. The patient has a medical history of diabetes mellitus and CAD. The patient will continue to attend his physical therapy sessions. He can discontinue the sling after six weeks post-op. Follow-up will be in [address] Mcmillan, or sooner if needed. Patient Instructions: Scribed by Annette Juan medical accounts receivable specialist, for Yasmin Pavon PA-C on 03/06/24 at 10:05 am EST. Coding Level of Care Code Global (25706) Diagnoses Tendinosis of right shoulder M67.813
[2024-03-06 09:52] VITALS: BMI 33.3
== END 2024-03-06 10:09 | disposition home or self-care (01) ==
PROVIDERS: PCP Internal Medicine; Visit Provider Physician Assistant
DX: M67.813 Other specified disorders of tendon, right shoulder (principal)
CPT/HCPCS: 99024

== ENCOUNTER → 2024-03-06 09:26 | Outpatient (BNVA) | payer MEDICAID, SELFPAY | PROVIDERS: PCP Internal Medicine; Visit Provider Physician Assistant | DX: Z47.89 Encounter for other orthopedic aftercare (principal); Z98.890 Other specified postprocedural states | CPT/HCPCS: 99212 ==

== ENCOUNTER 2024-03-11 07:07 | Outpatient (REF) | payer MEDICAID, SELFPAY ==
--- NOTE | ~2024-03-11 | US_ITS ---
EXAMINATION: Noninvasive assessment of the bilateral lower extremities with ARTERIAL DUPLEX and ANKLE BRACHIAL INDICES (ABIs). CLINICAL INFORMATION: Peripheral vascular disease TECHNIQUE: Duplex Doppler techniques with waveform analysis and measurement of velocities in the bilateral common femoral, profunda femoris, superficial femoral, popliteal and tibial arteries were performed. Additionally, ankle pulse volume recordings, ankle pressure measurements and ankle brachial indices were obtained of the lower extremity arterial system bilaterally. The study was performed only at rest. COMPARISON: Angiogram from 03/08/2022 and noninvasive evaluation from 03/15/2023 FINDINGS: DIRECT DUPLEX DOPPLER FINDINGS: RIGHT LEG: Common femoral artery: 214, phasicity: Biphasic Profunda femoris artery: 148, phasicity: Biphasic Superficial femoral artery (proximal): Occluded, Superficial femoral artery (mid): 53, phasicity: Biphasic Superficial femoral artery (distal): 31.1, phasicity: Biphasic Popliteal artery: 63.9, phasicity: Biphasic Posterior tibial artery: 56.4, phasicity: Biphasic Peroneal artery: 85.6, phasicity: Biphasic Anterior tibial artery: 33.3, phasicity: Biphasic Dorsalis pedis artery: 13, phasicity:Biphasic LEFT LEG: Common femoral artery: 239, phasicity: Biphasic Profunda femoris artery: 289, phasicity: Biphasic Superficial femoral artery (proximal): Patent stent, 246, phasicity: Biphasic Superficial femoral artery (mid): Patent stent: 160, phasicity: Biphasic Superficial femoral artery (distal): Patent stent 116, phasicity: Biphasic Popliteal artery: 89.1, phasicity: Biphasic Posterior tibial artery: 59.8, phasicity: Biphasic Peroneal artery: 52.4, phasicity: Biphasic Anterior tibial artery: 23, phasicity: Biphasic Dorsalis pedis artery: 60.5, phasicity: Biphasic ANKLE-BRACHIAL INDEX: Right: Nondiagnostic with pressure greater than 200 Left: Nondiagnostic with pressure greater than 200 ANKLE PRESSURES: Right: PT 124, DP greater than 200 Left: PT greater than 200, DP greater than 200 ANKLE PVR WAVEFORMS: Right: Abnormal Left: Normal US/US arterial duplex BI w/ RE IMPRESSION: Right leg: Short segment occlusion of the proximal right superficial femoral artery which is unchanged compared to the prior exam. Reconstituted flow in the mid and distal superficial for with patent below-knee runoff Left leg: Left superficial femoral artery stent is patent. Patent below-knee runoff Electronically signed by: Geoffrey Chaney MD 03/18/2024 01:17 PM EDT RP
== END 2024-03-11 07:08 | disposition home or self-care (01) ==
LOC: HO.US 07:07
PROVIDERS: PCP Internal Medicine; Visit Provider Surgery Vascular Surgery
DX: I73.9 Peripheral vascular disease, unspecified (principal)
CPT/HCPCS: 93922; 93925

== ENCOUNTER 2024-04-15 10:14 | Outpatient (AMB) | payer MEDICAID, SELFPAY ==
--- NOTE | 2024-04-15 10:35 | A.OFFVIS_ITS ---
Intake Visit Reasons: 1yr follow up s/p Arterial US 03/11/24 Intake Note: Patient presents for 1 year follow up arterial. States he still gets bilateral leg swelling. No other complaints. Accompanied by: Self / Same As Patient Allergies No Known Allergies Allergy (Verified 04/15/24 10:36) HPI HPI 1yr follow up s/p Arterial US 03/11/24: Details: Pleasant 63-year-old gentleman presents for follow-up regarding peripheral vascular disease. He reports he has been doing fairly well since his last visit. He has been walking several blocks with no issues. He also has undergone physical therapy. He also is able to walk a local [place] market which he enjoys doing with no difficulty as well. He is being maintained on aspirin and high-dose statin. He now presents for routine arterial surveillance follow- up. Also of note he has lost nearly 50 lb on [employer] Medical History Arthritis Asthma Peripheral arterial occlusive disease Hyperlipidemia IBS (irritable bowel syndrome) Benign prostatic hyperplasia without lower urinary tract symptoms GERD (gastroesophageal reflux disease) Chronic kidney disease Acute kidney failure Abdominal bloating Painful arc syndrome of right shoulder Chronic idiopathic constipation Tubular adenoma Myocardial infarct, old Diabetes PVD (peripheral vascular disease) CAD (coronary artery disease) Family history of prostate cancer Scrotal swelling Elevated PSA Surgical History Hx of aorto-femoral bypass History of coronary artery stent placement Hx of coronary angioplasty Hx of ligation of vein History of esophagogastroduodenoscopy (EGD) Hx of colonoscopy Hx of arthroscopic knee surgery History of surgery History of vascular surgery History of cardiac cath Family History Maternal Grandmother Diabetes Paternal Grandmother Diabetes Brother Diabetes Mother No problems noted. 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) Alcohol intake: never Patient Tobacco Use Status: Former Tobacco user Years Smoked: 35+ Current occupational status: disabled Current occupation: right hand dominant Review of Systems Const All systems reviewed & are unremarkable except as noted in HPI and below Reports no additional complaints ENT Reports Normal hearing present Card Denies chest pain, Denies chest pain at rest, Denies chest pain with activity and Denies pedal edema Resp Denies cough GI Denies abdominal pain Musc Denies abnormal gait, Denies muscle cramps and Denies radiating pain into limb Skin/Breast Denies skin ulcer and Denies wounds Neuro Reports Normal hearing present and Denies abnormal gait Psych Reports no additional complaints Physical Exam Const General: cooperative, healthy appearing and comfortable Orientation/consciousness: oriented to person, oriented to place and oriented to time HEENT Head: Yes normal to inspection Neck Neck: Yes normal visual inspection Carotids: no bruits Chest Chest palpation & inspection: normal inspection of the chest Resp Effort & Inspection: normal respiratory effort and able to speak in complete sentences Auscultation: clear to auscultation bilaterally, no crackles, no rales, no rhonchi and no wheezes Cardio Rate: regular rate Rhythm: regular rhythm Heart sounds: S1 normal heart sound present and S2 normal heart sound present Bruits: no carotid bruits Peripheral pulses: Peripheral pulses 2+ throughout GI Inspection: Yes normal to inspection Skin Wounds: no wounds Hair: normal Neuro General: oriented to person, oriented to place and oriented to time Cranial nerves: Yes CN's II-XII intact bilaterally and Yes Normal hearing present Cognition (Neuro): normal cognition Motor exam (neuro): 5/5 motor strength present throughout Extrem Other: venous exam: No significant superficial varicosities or spider telangiectasias, minimal edema General: No clubbing, No cyanosis and No edema Psych Appearance: grossly normal Mental Status: mental status grossly normal Speech and movement: Normal speech and movement present Results Reviewed Results Reviewed: Noninvasive arterial testing dated 03/11/2024 demonstrates bilateral SFA disease. They were unable to calculate RE due to high pressures. Written report and images were reviewed. Assessment & Plan Assessment & Plan (1) PVD (peripheral vascular disease): Comment: 08/24/2021 - plasty of left SFA for in stent Re-stenosis with DCB 03/08/2022 - diagnostic angiogram Code(s): I73.9 - Peripheral vascular disease, unspecified Category: Medical Plan: In short patient has stable claudication. I did review the pathophysiology of peripheral vascular disease with the patient. In addition we did discuss routine conservative measures including a healthy diet and the importance of exercise and ambulation. We did discuss risk factor modification. The patient will continue to to follow-up with surveillance follow-up in approximately 1 year. Thank you for allowing us to participate in this patient's care. If there are any questions or concerns please do not hesitate to contact us. Please note a longitudinal relationship has been created with the patient and we have been following and surveillance this chronic condition. Orders: Orders US arterial duplex LE BI 1 Year I73.9 - Peripheral vascular disease, unspe cified Coding Level of Care Code Est Pt Level 4 (48850) Complex EM visit Add On G2211 Diagnoses PVD (peripheral vascular disease) I73.9
== END 2024-04-15 11:10 | disposition home or self-care (01) ==
PROVIDERS: PCP Internal Medicine; Visit Provider Surgery Vascular Surgery
DX: I73.9 Peripheral vascular disease, unspecified (principal)
CPT/HCPCS: 99214

== ENCOUNTER → 2024-04-15 10:14 | Outpatient (BNVA) | payer MEDICAID, SELFPAY | PROVIDERS: PCP Internal Medicine; Visit Provider Surgery Vascular Surgery | DX: I73.9 Peripheral vascular disease, unspecified (principal) | CPT/HCPCS: 99212 ==

== ENCOUNTER 2024-04-16 10:03 | Outpatient (RCR) | payer MEDICAID, SELFPAY ==
[2024-02-18 09:57] VITALS: BP 177/91; PULSE 72
--- NOTE | 2024-02-18 11:36 | MHC.PT.EP ---
[facility] [place] [facility] [place] [facility] [place] Office [address] Sharla Gonzalez [address] [phone] F: [phone] F: [phone] F: [phone] F: [phone] Physical Therapy Plan of Care Date of Evaluation: 02/18/24 Date of Surgery: 01/30/24 Diagnosis: Medium rotator cuff repair Assessment: Osvaldo is a 63 year old male who is referred to PT for medium rotator cuff repair . He is currently 19 days post op. He has had h/o R shoulder pain for about 6 years. Per pt he had the surgery due to failure with conservative management. On PT examination he walked in with arm immobilized in a sling, TTP noted on R UT, anterior shoulder joint line, R pec major, limited R shoulder ROM, decreased R shoulder and scap strength, and altered posture. He lives alone but has a DITCH RIDER to assist with all ADLS. He is unemployed. He would benefit from skilled PT to address the aforementioned impairments and improve tolerance to functional activities. Frequency and Duration: The patient will be seen 2/week for 12 weeks Short Term Goals: 1. Pt will demonstrate initiation of HEP in 2 weeks. 2. Pt will have 50% decrease in pain which will enable him to sleep through the night in 4 weeks 3. Pt will be able to move R shoulder though full plane of motion which will enable him to dress his upper body independently in 6 weeks. Patrol Supervisor Goals: 1. Pt will demonstrate an increase in muscle strength by 1 grade which will enable him to perform all ADLS - showering, cooking with a pain no more than 2/10 in 9 weeks. 2. Pt will be independent with all HEP and return to PLOF in 12 weeks Treatment Plan: Modalities to reduce pain, spasms and effusion. Manual therapy to restore motion and function. Therapeutic exercise to improve strength and flexibility. Neuromuscular re-education for posture and balance. Therapeutic activities to return to functional activities of daily living. Electronically signed by: Ilana Melendez PT DPT Please sign and return to therapist. Thank you for your referral.
--- NOTE | 2024-04-18 15:21 | MHC.PT.DC ---
[facility] [place] Office [place] Office [place] Office [address] Sharla Gonzalez [address] [phone] F: [phone] F: [phone] F: [phone] F: [phone] Physical Therapy Discharge Report Diagnosis: Medium rotator cuff repair Date of Surgery: 01/30/24 Date of Evaluation: 02/18/24 Date of Discharge: 04/18/24 Treatments to Date: 14 Cancellations to Date: 0 No Shows to Date: 0 Discharge Status: Achieved Goals Improved Function Independent with HEP Discharge Summary: Osvaldo has completed 14 PT visits and has achieved all goals set for him. He is therefore being d/c from PT. Electronically signed by: Ilana Melendez PT DPT Please sign and return to therapist. Thank you for your referral.
== END 2024-04-18 15:21 | disposition home or self-care (01) ==
LOC: HO.PT 10:03
PROVIDERS: PCP Internal Medicine; Visit Provider Physician Assistant
DX: Z98.890 Other specified postprocedural states (principal)
CPT/HCPCS: 97110; 97112; 97140; 97161; 97530

== ENCOUNTER 2024-04-17 10:07 | Outpatient (AMB) | payer MEDICAID, SELFPAY ==
--- NOTE | 2024-04-17 10:28 | A.OFFVIS_ITS ---
Intake Visit Reasons: PO - right RTC repair 01/30/24 NE Intake Note: Osvaldo is a 63 year old right hand dominant male who presents today for a post operative appointment s/p right RTC repair 01/30/24 NE. Allergies No Known Allergies Allergy (Verified 04/17/24 10:28) HPI HPI PO - right RTC repair 01/30/24 NE: Details: 10 weeks status post right rotator cuff repair. Doing well. He has been doing physical therapy. He has no complaints. [facility] Medical History Arthritis Asthma Peripheral arterial occlusive disease Hyperlipidemia IBS (irritable bowel syndrome) Benign prostatic hyperplasia without lower urinary tract symptoms GERD (gastroesophageal reflux disease) Chronic kidney disease Acute kidney failure Abdominal bloating Painful arc syndrome of right shoulder Chronic idiopathic constipation Tubular adenoma Myocardial infarct, old Diabetes PVD (peripheral vascular disease) CAD (coronary artery disease) Family history of prostate cancer Scrotal swelling Elevated PSA Surgical History Hx of aorto-femoral bypass History of coronary artery stent placement Hx of coronary angioplasty Hx of ligation of vein History of esophagogastroduodenoscopy (EGD) Hx of colonoscopy Hx of arthroscopic knee surgery History of surgery History of vascular surgery History of cardiac cath Family History Maternal Grandmother Diabetes Paternal Grandmother Diabetes Brother Diabetes Mother No problems noted. 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 Continue PT. No heavy lifting. Follow up 3 months. Coding Level of Care Code Global (88032) Diagnoses S/P right rotator cuff repair Z98.890
== END 2024-04-17 10:56 | disposition home or self-care (01) ==
PROVIDERS: PCP Internal Medicine; Visit Provider Orthopaedic Surgery
DX: Z98.890 Other specified postprocedural states (principal)
CPT/HCPCS: 99024

== ENCOUNTER → 2024-04-17 10:07 | Outpatient (BNVA) | payer MEDICAID, SELFPAY | PROVIDERS: PCP Internal Medicine; Visit Provider Orthopaedic Surgery | DX: Z47.89 Encounter for other orthopedic aftercare (principal); Z98.890 Other specified postprocedural states | CPT/HCPCS: 99212 ==

== ENCOUNTER 2024-05-05 08:50 | Outpatient (AMB) | payer MEDICAID, SELFPAY ==
[2024-05-05 09:29] VITALS: BP 134/62; PULSE 84; BMI 33.4
--- NOTE | 2024-05-05 09:29 | MHC.OFFVIS ---
Vital Signs 05/05/24 09:29 Height 5 ft 4 in Weight 194 lb 7.163 oz BMI 33.4 BP 134/62 Blood Pressure Location Lt brachial Position Sitting Pulse 84 Pulse Source Monitor Intake Visit Reasons: 4 mth f/up Intake Note: 4 mth f/up Signals Intelligence Superintendent Required: Yes Signals Intelligence Superintendent Language: Half Sole Fitter Name: [id number] Accompanied by: Self / Same As Patient Allergies No Known Allergies Allergy (Verified 04/17/24 10:28) Medication List - Last Reconciled 05/05/24 by Bassam Ogden MD acetaminophen 1,000 mg PO Q6H PRN albuterol sulfate 5 mg inhalation Q4H PRN amlodipine (Norvasc) 10 mg PO DAILY aspirin (Adult Low Dose Aspirin) 81 mg PO DAILY atorvastatin 80 mg PO BEDTIME bisacodyl (Dulcolax (bisacodyl)) 10 mg (2 x 5 mg) PO BEDTIME blood sugar diagnostic (FreeStyle Lite Strips) As directed carvedilol 6.25 mg PO BID cholecalciferol (vitamin D3) 50 mcg PO QAM cilostazol 100 mg PO BID docusate sodium 100 mg PO DAILY docusate sodium (Colace) 100 mg PO BID 30 days famotidine (Pepcid) 20 mg PO BEDTIME fluticasone propionate 110 mcg/actuation 2 puffs inhalation BID gabapentin 300 mg PO DAILY glucose (Dex4 Glucose) 8 grams PO Q15M PRN insulin glargine (Lantus Solostar U-100 Insulin) 34 units subcut QPM lancets (TRUEplus Lancets) As directed morphine ER (MS Contin) 15 mg PO Q12H 3 days oxycodone-acetaminophen 5-325 mg 1 tab PO Q12H PRN 7 days pantoprazole 20 mg PO DAILY pen needle, diabetic (Pentips Pen Needle) As directed polyethylene glycol 3350 (Miralax) 17 grams PO DAILY risperidone 3 mg PO BEDTIME tirzepatide (Mounjaro) 5 mg subcut QWEEK tramadol 50 mg PO TID PRN HPI Comments Details: 63-year-old gentleman who is referred for preoperative cardiovascular risk assessment. He has background history of coronary artery disease with multiple stents placed while he was in [facility]. He had workup done at [facility] previously and in 2016 he underwent cardiac catheterization when he presented with chest pain. Cardiac catheterization showed 90% stenosis in 2nd diagonal branch, 60% OM2 stenosis and moderate diffuse disease in the right coronary artery with mild InStent restenoses in the mid RCA. There is also a 60% stenosis noticed in the right posterior descending artery. He was medically managed at that stage. His echocardiography at that time showed normal biventricular function. Subsequent to that in 2017 he had Lexiscan which showed no fixed or reversible perfusion defect. He has been experiencing diarrhea for months. He has developed dehydration due to that. He has no shortness of breath. He does get chest discomfort and recently had chest tightness for which he took nitroglycerin. He said symptoms were similar to his pre PCI chest discomfort. He underwent Lexiscan which showed fixed basal to mid inferior defect and t.i.d.. He was taken for diagnostic angiogram where we noticed occluded mid right coronary artery with [id number] collaterals and 50% 2nd diagonal stenosis. We decided to medically manage him. He was advised to proceed with endoscopy with intermediate risk. He returns and denies any chest discomfort shortness of breath. He had lower extremity bypass surgery before and is following with vascular surgery at [facility]. He wishes to see someone at [facility] and we will refer him. 06/03/2023: He returns for follow-up. He has been following with Dr. Whitney. He has seen Urology and was given a prescription for Cialis for erectile dysfunction. He also is on isosorbide mononitrate 60 mg daily. Denying any anginal symptoms. He was advised to stop the isosorbide mononitrate. 09/19/23: He is here for follow-up. He had diarrhea for couple of days and has been feeling weak and dizzy. He is saying diarrhea is getting better now. No fevers or chills. No blood in stool. Blood pressure is normal. 01/23/2024: He is here for follow-up. Feeling better. No chest pains or shortness of breath. Blood pressure is well controlled. He is taking aspirin, Plavix and cilostazol. He has peripheral vascular disease. I have explained to him that he should not be taking all 3 of his medications because of bleeding risk. He is undergoing right shoulder surgery and stopping Plavix. I have advised him not to resume Plavix after surgery and discontinue aspirin and cilostazol. 05/05/2024: On follow-up today, he is complaining of some left-sided chest tightness which happened at rest for 15 minutes few days ago. He has not had any further discomfort in the chest. Physically not active. 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 He also had 60% OM2 and 90% diagonal stenosis which was a small-sized vessel. He had right shoulder surgery and has recovered from that. He was advised to stop the Plavix and he is taking aspirin and cilostazol at this point. [facility] Medical History (Reviewed 04/17/24 @ 10:43 by Maureen Borges [facility] [address] [address]) Arthritis Asthma Peripheral arterial occlusive disease Hyperlipidemia IBS (irritable bowel syndrome) Benign prostatic hyperplasia without lower urinary tract symptoms GERD (gastroesophageal reflux disease) Chronic kidney disease Acute kidney failure Abdominal bloating Painful arc syndrome of right shoulder Chronic idiopathic constipation Tubular adenoma Myocardial infarct, old Diabetes PVD (peripheral vascular disease) CAD (coronary artery disease) Family history of prostate cancer Scrotal swelling Elevated PSA Surgical History Hx of aorto-femoral bypass History of coronary artery stent placement Hx of coronary angioplasty Hx of ligation of vein History of esophagogastroduodenoscopy (EGD) Hx of colonoscopy Hx of arthroscopic knee surgery History of surgery History of vascular surgery History of cardiac cath Family History Maternal Grandmother Diabetes Paternal Grandmother Diabetes Brother Diabetes Mother No problems noted. 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) Alcohol intake: never Patient Tobacco Use Status: Former Tobacco user Years Smoked: 35+ Current occupational status: disabled Current occupation: right hand dominant Review of Systems Const Denies chills, Denies fatigue, Denies fever(s), Denies frequent falls, Denies weakness, Denies weight gain and Denies weight loss ENT Denies dizziness Card Denies chest pain, Denies leg edema, Denies lightheadedness, Denies palpitations, Denies dyspnea and Denies dyspnea on exertion Resp Denies cough, Denies dyspnea and Denies dyspnea on exertion GI Denies hematochezia Musc Denies abnormal gait, Denies muscle weakness, Denies numbness, Denies radiating pain into limb and Denies tingling Neuro Denies abnormal gait, Denies dizziness, Denies frequent falls, Denies numbness, Denies tingling and Denies weakness Endo Denies fatigue and Denies palpitations Physical Exam Vital Signs: Last Vital Signs Pulse 84 05/05/24 09:29 BP 134/62 05/05/24 09:29 BMI result Body Mass Index 33.4 GENERAL APPEARANCE: in no acute distress, pleasant. Obese. NECK: no carotid bruit, no jugular venous distention. SKIN: no suspicious lesions, warm and dry. HEART: no murmurs, regular rate and rhythm. LUNGS: clear to auscultation bilaterally. ABDOMEN: soft, nontender. EXTREMITIES: no edema. PERIPHERAL PULSES: equal. NEUROLOGIC: No gross deficits, AAO X 3 Assessment & Plan Assessment & Plan (1) Stable angina: Code(s): I20.89 - Other forms of angina pectoris Category: Medical (2) PVD (peripheral vascular disease): Comment: 08/24/2021 - plasty of left SFA for in stent Re-stenosis with DCB 03/08/2022 - diagnostic angiogram Code(s): I73.9 - Peripheral vascular disease, unspecified Category: Medical Plan 63-year-old gentleman who is here for follow-up. 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 Previously did not have any anginal symptoms but complaining of some chest tightness on the left side which happened few days back. It has not reoccurred since then but he also is not physically active. Blood pressure is well controlled. We will arrange exercise stress test for him. He is taking aspirin and cilostazol at this stage. He is off the Plavix. On high-intensity statin therapy with atorvastatin 80 mg daily. Follow-up with us in few months. Thank you for allowing me to participate in the care of your patient. Please feel free to contact me if you have any questions. Orders: Orders NM cardiolite stress test Today I20.89 - Other forms of angina pectoris CA stress test Today I20.89 - Other forms of angina pectoris Coding Level of Care Code Est Pt Level 4 (64603) Diagnoses Stable angina I20.89 PVD (peripheral vascular disease) I73.9
--- OUTSIDE RECORDS SUMMARY | 2024-05-07 13:34 | XMS_ITS | Continuity of Care Document ---
Author Organization [facility] Address [address] [place] [address] Phone Care Team Providers Care Circuit Judge Name Role Phone You MSN, COST COORDINATOR-EXPERIMENTAL MECHANIC [employer], Kiki Unavailable Jaelyn vailable Allergies, Adverse Reactions, [...] Meter kit take 1 not specified by [facility]non-drug; combo) route 4 times every day 1 not specified - Active nitroglycerin 0.[address] 1 tablet by sublingual route at 1st sign of attack; may repeat every 5 minutes up to 3 tabs; if norelief seek medical help as needed 0.4 MG - Active Procedures Procedure Date Glucose By Monitoring Device Capillary Finger Heel Ear Blood Draw Jan Expanded Problem Hx. Low MDM Expanded Problem Hx. Low MDM Capillary Finger Heel Ear Blood Draw Nov Glucose By Monitoring Device Detailed Hx/Ex Moderate MDM Glucose By Monitoring Device Capillary Finger Heel Ear Blood Draw September Detailed Hx/Ex Moderate MDM Detailed Hx/Ex Moderate MDM Expanded Problem Hx. Low MDM Mar-22-2019 Expanded Problem Hx. Low MDM Administration Without Counseling Tdap>7yrs IM Expanded Problem Hx. Low MDM Toradol/Ketorolac Admin Inj Theraputic Prophylactic Diag S C Or IM Expanded Problem Hx. Low MDM Expanded Problem Hx. Low [facility] Administration Without Counseling Fluzone Quadrivalent Influenza Vaccine 3 Yrs + Routine EKG Screening With Interpretatio n & Report Detailed Hx/Exam Low [facility] Advance Directives Directive Yes / No Effective Date File Name No Information Encounters Encounter Description Practice Location Reason(s) For Visit Diagnoses Date Provider Providers Copied on Encounter [facility], [address] [place] [address], [id number] , tel:[phone] [facility] No Information 1 Avelino Katz 1976 [facility], [id number] [place], [place], [place], [id number], [place]. tel:[phone] [facility], [address] [place] [address], [id number] , tel:[phone] [facility] No Information 9 Shawn Gandhi. [address] [place] [address] , [id number] [place], [place], [address], [place]. tel:[phone] Expanded Problem Hx. Low [facility], [address] [place] [address], [id number] , [place] tel:[phone] [facility] Follow Up of flank pain (chief complaint) Body mass index (BMI) 38.0-38.9, adultType 2 diabetes mellitus without complication, with long-term current use of insulinAbdomi nal bloatingRight kidney mass 9 Avelino Katz 1976 [facility], [id number] [place], [place], [place], [id number], [place]. tel:[phone] Expanded Problem Hx. Low [facility], [address] [place] [address], [id number] , tel:[phone] [facility] diabetes (chief complaint). (chief complaint) Right kidney massType 2 diabetes mellitus with hyperglycemia Body mass index (BMI) 37.0-37.9, adult Sep-0 9 You Kiki. 1976 [facility], [id number] [place], [place], [place], [id number], [place]. tel:[phone] [facility], [address] [place] [address], [id number] , [place] tel:[phone] [facility] No Information You Kiki. 1976 [facility], [id number] [place], [place], [place], [id number], [place]. tel:[phone] Detailed Hx/Ex Moderate [facility], [address] [place] [address], [id number] , [place] [phone] [facility] Follow Up of diabetes (chief complaint)Gas (chief complaint) Body mass index (BMI) 38.0-38.9, adultType 2 diabetes mellitus without complication, with long-term current use of insulinDiarrh ea, unspecified typeDDD (degenerative disc disease), cervicalEssen tial hypertensionH yperlipidemia , unspecified hyperlipidemi a typeHistory of [place] (myocardial infarction) You Kiki. 1976 [facility], [id number] [place], [place], [place], [id number], [place]. tel:[phone] Detailed Hx/Ex Moderate [address], [id number] , [place] tel:[phone] [facility] flank pain (chief complaint)Ski n tag(s) (chief complaint)Vas surgery follow up (ranjana) (chief complaint). (chief complaint) Body mass index (BMI) 36.0-36.9, adultType 2 diabetes mellitus without complication, with long-term current use of insulinClosed fracture of multiple ribs of right side with routine healing, subsequent encounterSkin tagArthrosis of left shoulderDDD (degenerative disc disease), cervicalOther diabetic neurological complication associated with type 2 diabetes mellitusInfec kevin surgical wound 9 You Kiki. 1976 [facility], [id number] [place], [place], [place], [id number], [place]. tel:[phone] [facility], [address] [place] [address], [id number] , [place] tel:[phone] [facility] No Information 9 You Kiki. 1976 [facility], [id number] [place], [place], [place], [id number], [place]. tel:[phone] Detailed Hx/Ex Moderate [facility], [address] [place] [address], [id number] , [place] tel:[phone] [facility] diabetes (chief complaint)hyp ertension (chief complaint)fol low up [facility] (chief complaint)Fla nk pain (chief complaint) Body mass index (BMI) 37.0-37.9, adultClosed fracture of multiple ribs of right side with routine healing, subsequent encounterEsse ntial hypertensionH yperlipidemia , unspecified hyperlipidemi a typeType 2 diabetes mellitus with hyperglycemia History of [place] (myocardial infarction)Ot her diabetic neurological complication associated with type 2 diabetes mellitus 9 You Kiki. 1976 [facility], [id number] [place], [place], [place], [id number], [place]. tel:[phone] Expanded Problem Hx. Low [facility], [address] [place] [address], [id number] , [place] tel:[phone] [facility] Follow Up of Shoulder pain (chief complaint) Body mass index (BMI) 37.0-37.9, adultLeft anterior shoulder pain 9 You Kiki. 1976 [facility], [id number] [place], [place], [place], [id number], [place]. tel:[phone] Expanded Problem Hx. [address], [id number] , [place] tel:[phone] [facility] shoulder pain (chief complaint) Body mass index (BMI) 37.0-37.9, adultLeft anterior shoulder pain 8 9 Avelino Swanson. [address] [place] [address], [id number] [place], [place], [place], [id number], [place]. tel:[phone] Expanded Problem Hx. [address], [id number] , [place] tel: [phone] [facility] immunizations (chief complaint)Khushbu st pain (chief complaint)alejandro betes (chief complaint) Body mass index (BMI) 38.0-38.9, adultType 2 diabetes mellitus with hyperglycemia Essential hypertension 9 No Information Expanded Problem Hx. [address], [id number] , tel: [phone] [facility] shoulder pain (chief complaint)alejandro betes (chief complaint) Body mass index (BMI) 38.0-38.9, adultType 2 diabetes mellitus with hyperglycemia Bilateral claudication of lower limbDeltoid tendonitis of left shoulder 9 No Information Expanded Problem Hx. [address], [id number] , tel: [phone] [facility] elbow pain (chief complaint)fol low up on lab test(s) (chief complaint)alejandro betes (chief complaint) Body mass index (BMI) 38.0-38.9, adultArthriti s of elbow, leftType 2 diabetes mellitus with hyperglycemia 3 8 No Information [address], [id number] , [place] tel:[phone] [facility] No Information 6 8 No Information Detailed Hx/Exam [address], [id number] , tel:[phone] [facility] establish pcp (chief complaint)alejandro joel (chief complaint)hyp ertension (chief complaint) Body mass index (BMI) 37.0-37.9, adultAcute stress reactionEssen tial hypertensionT ype 2 diabetes mellitus without complication, with long-term current use of insulinFlu vaccine needHyperlipi demia, unspecified hyperlipidemi a typeHistory of [place] (myocardial infarction)Ot her diabetic neurological complication associated with type 2 diabetes mellitusLeft arm pain 5-201 8 No Information Family History Family Member Type Diagnosis Age At Onset No Information Immunizations Vaccine Date Status Comments Tdap administered Source: New Imm unization Record Influenza, injectable, quadrivalent, preservative free, 3 yrs or older administered Source: New Immuniz ation Record Payers Payer name Insurance type Covered libertarian ID Authoriza tion(s) [facility] [id number] [facility] [id number] [facility] [id number] [facility] [id number] [facility] [id number] [facility] [id number] Social History Type Description Quantity Date Captured Comments Alcohol Use Details Unknown Caffeine Use Details Unknown Tobacco Use Status No Information Smoking Status No Information Sex Male Gender Identity Male Chief Complaint And Reason For Visit No Information Reason For Referral Reason For Referral No Information Plan Of Treatment Date Type [...] Lab Order COMPREHE NSIVE METABOLIC PANEL W/EGFR ([id number]), Ordered on: Ordered History Of Present Illness [...] printed to review. Results reviewed with patient. diabetes Risk factors inc lude: / [place], family history diabetes mellitus, obesity, over age 4545 years old and sedentary lifestyle. Comorbidity: Hypertension. Additional information: left blood sugar log at home but he states when he checked his sugar this morning it was 150. . Patient is here to review the CT scan of lumbar that was done by pain management. Showed right mass. Follow Up of diabetes Risk facto rs include: / [place], family history diabetes mellitus, obesity, over age [...] Does not have well water. . The sign language interpreter phone was used through this entire visit. Patient speaks only [place]. Vas surgery follow up (ranjana) The symptoms [...] having pain, out of medication. Was at [facility] in August for fractured ribs on the right flank side. Skin tag(s) patient has skin tag in right axilla area, states it does cause discomfort and it was bleeding yesterday. follow [facility] Was at . [facility] for rib pain. diabetes Risk factors inc lude: / [place], family history diabetes mellitus, obesity, over age [age] years old and sedentary lifestyle. Comorbidity: Hypertension. Pertinent negatives include blurred vision, burning of extremities, chest pain, constant hunger, dental disease, diarrhea, dyspnea, frequent infections, frequent urination, heartburn, increased fatigue, nocturia, polydipsia, slow healing wounds / sores and weight gain. Additional information: medcation refills. hypertension Comorbid conditi ons include diabetes mellitus and post-[place]. Risk factors include family history HTN, gout [...] states unable to sleep d/t pain, at [facility] in August for fx of right rib. [...] working. diabetes Risk factors inc lude: / [place], family history diabetes mellitus and sedentary lifestyle. immunizations Patient wants te tanus vaccine. Chest pain The patient pres ents with a complaint of Chest pain. The symptoms have resolved. Relevant history for this patient excludes tobacco use. Patient was seen at [facility] last for chest pain. Patient states he took nitro x 3 before going to the hospital. Stress test and CTA of chest were unremarkable. diabetes Risk factors inc lude: / [place], family history diabetes mellitus and sedentary lifestyle. [...] test(s) diabetes Risk factors inc lude: / [place], family history diabetes mellitus and sedentary lifestyle. [...] PCP. PMH: diabetes, hypertension, hyperlipidemia, gerd, neuropathy, [place] 2014- cardiac bypass surgey, 5 stents placed, Hx stroke 2016 last saw his heart doctor 4 months ago, was going ever 6 months in [place], recently moved here - needs cardiology referral [...] Comorbid conditi ons include diabetes mellitus and post-[place]. Risk factors include family history HTN, gout or CAD and male gender. Pertinent negatives include chest pain, dyspnea, fatigue, headache, hematuria, irregular heartbeat/palpitations, nausea and vomiting. Additional information: establishing care- needs to also establish with cardiology for annual check ups diabetes Risk factors inc lude: / [place], family history diabetes mellitus and sedentary lifestyle. Pertinent negatives include chest pain, diarrhea and dyspnea. Additional information: establishing care today- needs all refills and glucometer. Functional Status Date Functional Assessmen t No Information Instructions Date Instruction Additional Infor daniela Giving encouragement to exercise Related to Body [...] adult Assessments Type Assessment Date No Information Patient Care Teams Name Effective Dates (start - stop) Status Members No Information
== END 2024-05-05 09:48 | disposition home or self-care (01) ==
PROVIDERS: PCP Internal Medicine; Visit Provider Internal Medicine Cardiovascular Disease
DX: I20.89 Other forms of angina pectoris (principal); I73.9 Peripheral vascular disease, unspecified
CPT/HCPCS: 99214

== ENCOUNTER → 2024-05-05 08:50 | Outpatient (BNVA) | payer MEDICAID, SELFPAY | PROVIDERS: PCP Internal Medicine; Visit Provider Internal Medicine Cardiovascular Disease | DX: I20.89 Other forms of angina pectoris (principal); I73.9 Peripheral vascular disease, unspecified | CPT/HCPCS: 99212 ==

== ENCOUNTER 2024-05-13 11:25 | Outpatient (AMB) | payer MEDICAID, SELFPAY ==
--- OUTSIDE RECORDS SUMMARY | 2024-05-13 11:44 | XMS_ITS | Continuity of Care Document ---
Author Organization [facility] Address [address] [place] [address] Phone Care Team Providers Care Food Science Technician Name Role Phone You MSN, ONCOLOGY CONSULTANT-BUILDING TRADES TEACHER, Kiki Unavailable Jaelyn vailable Allergies, Adverse Reactions, [...] Meter kit take 1 not specified by [facility]non-drug; combo) route 4 times every day 1 [...] Hx. Low MDM Expanded Problem Hx. Low [facility] Administration Without Counseling Fluzone Quadrivalent Influenza Vaccine 3 Yrs + Routine EKG Screening With Interpretatio n & Report Detailed Hx/Exam Low [facility] Advance Directives Directive Yes / No Effective Date File Name No Information Encounters Encounter Description Practice Location Reason(s) For Visit Diagnoses Date Provider Providers Copied on Encounter [facility], [address] [place] [address], [id number] , tel:[phone] [facility] No Information 1 Avelino Katz 1976 [facility], [id number] [place], [place], [place], [id number], [place]. tel:[phone] [facility], [address] [place] [address], [id number] , tel:[phone] [facility] No Information 9 Shawn Gandhi. [address] [place] [address] , [id number] [place], [place], [address], [place]. tel:[phone] Expanded Problem Hx. Low [facility], [address] [place] [address], [id number] , [place] tel:[phone] [facility] Follow Up of flank pain (chief complaint) Body mass index (BMI) 38.0-38.9, adultType 2 diabetes mellitus without complication, with long-term current use of insulinAbdomi nal bloatingRight kidney mass 9 Avelino Katz 1976 [facility], [id number] [place], [place], [place], [id number], [place]. tel:[phone] Expanded Problem Hx. Low [facility], [address] [place] [address], [id number] , tel:[phone] [facility] diabetes (chief complaint). (chief complaint) Right kidney massType 2 diabetes mellitus with hyperglycemia Body mass index (BMI) 37.0-37.9, adult Sep-0 9 You Kiki. 1976 [facility], [id number] [place], [place], [place], [id number], [place]. tel:[phone] [facility], [address] [place] [address], [id number] , [place] tel:[phone] [facility] No Information You Kiki. 1976 [facility], [id number] [place], [place], [place], [id number], [place]. tel:[phone] Detailed Hx/Ex Moderate [facility], [address] [place] [address], [id number] , [place] [phone] [facility] Follow Up of diabetes (chief complaint)Gas (chief complaint) Body mass index (BMI) 38.0-38.9, adultType 2 diabetes mellitus without complication, with long-term current use of insulinDiarrh ea, unspecified typeDDD (degenerative disc disease), cervicalEssen tial hypertensionH yperlipidemia , unspecified hyperlipidemi a typeHistory of IL (myocardial infarction) You Kiki. 1976 [facility], [id number] [place], [place], [place], [id number], [place]. tel:[phone] Detailed Hx/Ex Moderate [address], [id number] , [place] tel:[phone] [facility] flank pain (chief complaint)Ski n tag(s) (chief [...] kevin surgical wound 9 You Kiki. 1976 [facility], [id number] [place], [place], [place], [id number], [place]. tel:[phone] [facility], [address] [place] [address], [id number] , [place] tel:[phone] [facility] No Information 9 You Kiki. 1976 [facility], [id number] [place], [place], [place], [id number], [place]. tel:[phone] Detailed Hx/Ex Moderate [facility], [address] [place] [address], [id number] , [place] tel:[phone] [facility] diabetes (chief complaint)hyp ertension (chief complaint)fol low [...] 2 diabetes mellitus 9 You Kiki. 1976 [facility], [id number] [place], [place], [place], [id number], [place]. tel:[phone] Expanded Problem Hx. Low [facility], [address] [place] [address], [id number] , [place] tel:[phone] [facility] Follow Up of Shoulder pain (chief complaint) Body mass index (BMI) 37.0-37.9, adultLeft anterior shoulder pain 9 You Kiki. 1976 [facility], [id number] [place], [place], [place], [id number], [place]. tel:[phone] Expanded Problem Hx. [address], [id number] , [place] tel:[phone] [facility] shoulder pain (chief complaint) Body mass index (BMI) 37.0-37.9, adultLeft anterior shoulder pain 8 9 Avelino Swanson. [address] [place] [address], [id number] [place], [place], [place], [id number], [place]. tel:[phone] Expanded Problem Hx. [address], [id number] , [place] tel: [phone] [facility] immunizations (chief complaint)Khushbu st pain (chief complaint)alejandro betes (chief complaint) Body mass index (BMI) 38.0-38.9, adultType 2 diabetes mellitus with hyperglycemia Essential hypertension 9 No Information Expanded Problem Hx. [address], [id number] , tel: [phone] [facility] shoulder pain (chief complaint)alejandro betes (chief complaint) Body mass index (BMI) 38.0-38.9, adultType 2 diabetes mellitus with hyperglycemia Bilateral claudication of lower limbDeltoid tendonitis of left shoulder 9 No Information Expanded Problem Hx. [address], [id number] , tel: [phone] [facility] elbow pain (chief complaint)fol low up on lab test(s) (chief complaint)alejandro betes (chief complaint) Body mass index (BMI) 38.0-38.9, adultArthriti s of elbow, leftType 2 diabetes mellitus with hyperglycemia 3 8 No Information [address], [id number] , [place] tel:[phone] [facility] No Information 6 8 No Information Detailed Hx/Exam [address], [id number] , tel:[phone] [facility] establish pcp (chief complaint)alejandro joel (chief complaint)hyp [...] Record Payers Payer name Insurance type Covered constitution party ID Authoriza tion(s) [facility] [id number] [facility] [id number] [facility] [id number] [facility] [id number] [facility] [id number] [facility] [id number] Social History Type Description Quantity Date Captured [...] Lab Order COMPREHE NSIVE METABOLIC PANEL W/EGFR ([id number]), Ordered on: Ordered History Of Present Illness [...] patient. diabetes Risk factors inc lude: / Cypriot, family history diabetes mellitus, obesity, over age 4545 years old and sedentary lifestyle. Comorbidity: Hypertension. Additional information: left blood sugar log at home but he states when he checked his sugar this morning it was 150. . Patient is here to review the CT scan of lumbar that was done by pain management. Showed right mass. Gas Location is diff use. The patient describes it as bloating. Context: no pattern noted. Denies aggravating factors. Denies relieving factors. Associated symptoms include bloating, diarrhea and flatulence. Pertinent negatives include constipation, flank pain, heartburn, nausea and vomiting. Additional information: Has not recently traveled out of country. Does not have reptilian pets. Does not have well water. Follow Up of diabetes Risk facto rs include: / Cypriot, family history diabetes mellitus, obesity, over age 4545 years old and sedentary lifestyle. Comorbidity: Hypertension. Associated symptoms include: diarrhea. Pertinent negatives include blurred vision, burning of extremities, frequent infections, frequent urination, heartburn, increased fatigue and slow healing wounds / sores. Additional information: 2 month f/u. Skin tag(s) patient has skin tag in right axilla area, states it does cause discomfort and it was bleeding yesterday. flank pain Location of pain is right [...] having pain, out of medication. Was at [facility] in August for fractured ribs on the right flank side. Vas surgery follow up (ranjana) The symptoms [...] on November 06 with the vascular surgeon. . The spanish interpreter/translator phone was used through this entire visit. Patient speaks only Northern Irish. follow up [facility] Was at [facility] for rib pain. Flank pain Pain level is 10 . [...] unable to sleep d/t pain, at [facility] in August for fx of right rib. hypertension Comorbid conditi ons include diabetes mellitus and post-IL. Risk factors include family history HTN, gout or CAD, inactive lifestyle, male gender and obesity. The hypertension is exacerbated by nothing. Pertinent negatives include chest pain, claudication, confusion, diaphoresis, dyspnea, epistaxis, fatigue, headache, hematuria, irregular heartbeat/palpitations, nausea, tinnitus, transient weakness, tremor, visual disturbances and vomiting. Additional information: medication refills diabetes Risk factors inc lude: / Cypriot, family history diabetes mellitus, obesity, over age [age] years old and sedentary lifestyle. Comorbidity: Hypertension. Pertinent negatives include blurred vision, burning of extremities, chest pain, constant hunger, dental disease, diarrhea, dyspnea, frequent infections, frequent urination, heartburn, increased fatigue, nocturia, polydipsia, slow healing wounds / sores and weight gain. Additional information: medcation refills. Follow Up of Shoulder pain Locat ion: [...] therapy but he states its not working. Chest pain The patient pres ents with a complaint of Chest pain. The symptoms have resolved. Relevant history for this patient excludes tobacco use. Patient was seen at [facility] last for chest pain. Patient states he took nitro x 3 before going to the hospital. Stress test and CTA of chest were unremarkable. immunizations Patient wants te tanus vaccine. diabetes Risk factors inc lude: / Cypriot, family history diabetes mellitus and sedentary lifestyle. [...] more than 10/10 pain in the shoulder. diabetes Risk factors inc lude: / Cypriot, family history diabetes mellitus and sedentary lifestyle. follow up on lab test(s) elbow pain Onset: 6 months ago. Location: left elbow. The pain radiates to the left arm. The pain is sharp and throbbing. Context: there is no injury. Associated symptoms include difficulty initiating sleep, joint tenderness, numbness and tingling in the arms. Pertinent negatives include joint instability and weakness. diabetes Risk factors inc lude: / Cypriot, family history diabetes mellitus and sedentary lifestyle. Pertinent negatives include blurred vision, burning of extremities, chest pain, constant hunger, dental disease, diarrhea, dysesthesias, dyspnea, foot ulcers, frequent infections, frequent urination, heartburn, hypoglycemic episodes, increased fatigue, nocturia, polydipsia and slow healing wounds / sores. diabetes Risk factors inc lude: / Cypriot, family history diabetes mellitus and sedentary lifestyle. Pertinent negatives include chest pain, diarrhea and dyspnea. Additional information: establishing care today- needs all refills and glucometer. hypertension Comorbid conditi ons include diabetes mellitus and post-IL. Risk factors include family history HTN, gout or CAD and male gender. Pertinent negatives include chest pain, dyspnea, fatigue, headache, hematuria, irregular heartbeat/palpitations, nausea and vomiting. Additional information: establishing care- needs to also establish with cardiology for annual check ups establish pcp Patient presents today to establish PCP. PMH: diabetes, hypertension, hyperlipidemia, gerd, neuropathy, [place] 2013- cardiac bypass surgey, 5 stents placed, Hx stroke 2015 last saw his heart doctor 4 months ago, was going ever 6 months in [place], recently moved here - needs cardiology referral colonoscopy done 6 years ago out of state- normal per patientdoes not smokec/o numbness, tingling left arm- denies CP or neck painstates the pain is mostyle in his upper arm and has gotten worse over the last few weeks, ibuprofen does not help. States it feels like pins and needles Functional Status Date Functional Assessmen t No [...]
--- NOTE | 2024-05-13 12:15 | A.OFFVIS_ITS ---
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 Broodmare [employer] Groom Name: [id number] Accompanied by: Self / Same As Patient Allergies No Known Allergies Allergy (Verified 05/13/24 13:48) Medication List - Last Reconciled 05/13/24 by OLAF Nelson acetaminophen 1,000 mg PO Q6H PRN albuterol sulfate 5 mg inhalation Q4H PRN amlodipine (Norvasc) 10 mg PO DAILY aspirin (Adult Low Dose Aspirin) 81 mg PO DAILY atorvastatin 80 mg PO BEDTIME bisacodyl (Dulcolax (bisacodyl)) 10 mg (2 x 5 mg) PO BEDTIME blood sugar diagnostic (FreeStyle Lite Strips) As directed carvedilol 6.25 mg PO BID cholecalciferol (vitamin D3) 50 mcg PO QAM cilostazol 100 mg PO BID docusate sodium (Colace) 100 mg PO BID 30 days famotidine (Pepcid) 20 mg PO BEDTIME fluticasone propionate 110 mcg/actuation 2 puffs inhalation BID gabapentin 300 mg PO DAILY glucose (Dex4 Glucose) 8 grams PO Q15M PRN insulin glargine (Lantus Solostar U-100 Insulin) 34 units subcut QPM lancets (TRUEplus Lancets) As directed pantoprazole 20 mg PO QAM pen needle, diabetic (Pentips Pen Needle) As directed polyethylene glycol 3350 (Miralax) 17 grams PO DAILY risperidone 3 mg PO BEDTIME tirzepatide (Mounjaro) 5 mg subcut QWEEK HPI Comments Details: Osvaldo is a pleasant 63-year-old Turkmen speaking male patient of Dr Tinajero. He has a past medical history of chronic idiopathic constipation, UT, diabetes, PVD, CAD, and elevated PSA. He presents to the office today for follow-up of his ED and penile injection teaching. Penile injection performed in the office Medication provided Good response to TriMix initial 30 units; Suggest 40 units of TriMix initial Sterile technique used Teaching provided for identification of injection sites CPT 16503 Education provided Patient previously trialed daily dosing of Cialis with p.r.n. dosing of Cialis and or Viagra without improvement. Previous workup has included Testosterone 06/20 395 Free Tesosterone 53.3%. Discussed at length potential causes for erectile dysfunction. Discussed at length importance of managing diabetes for improvement in erectile dysfunction as well as for overall health and well being. 06/20 A1c 5.6. When asked he denies urinary urgency, urinary frequency, incontinence, nocturia, hematuria, dysuria, foul smelling urine, changes to urinary stream, flank pain, fever, and or chills. He is happy with his current voiding parameters. PSAs are as follows: PSAs: 01/15 0.2, 07/19 0.2, 07/20 0.2, 09/18 0.2 PFSH Medical History Arthritis Asthma Peripheral arterial occlusive disease Hyperlipidemia IBS (irritable bowel syndrome) Benign prostatic hyperplasia without lower urinary tract symptoms GERD (gastroesophageal reflux disease) Chronic kidney disease Acute kidney failure Abdominal bloating Painful arc syndrome of right shoulder Chronic idiopathic constipation Tubular adenoma Myocardial infarct, old Diabetes PVD (peripheral vascular disease) CAD (coronary artery disease) Family history of prostate cancer Scrotal swelling Elevated PSA Surgical History Hx of aorto-femoral bypass History of coronary artery stent placement Hx of coronary angioplasty Hx of ligation of vein History of esophagogastroduodenoscopy (EGD) Hx of colonoscopy Hx of arthroscopic knee surgery History of surgery History of vascular surgery History of cardiac cath Family History Maternal Grandmother Diabetes Paternal Grandmother Diabetes Brother Diabetes Mother No problems noted. 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 home services: Yes (PRACTICAL NURSE) Alcohol intake: never Patient Tobacco Use Status: Former Tobacco user Years Smoked: 35+ Current occupational status: disabled Current occupation: right hand dominant Review of Systems Const All systems reviewed & are unremarkable except as noted in HPI and below Reports as per HPI Eyes Reports no additional complaints ENT Reports no additional complaints Card Reports as per [facility] Resp Reports no additional complaints GI Reports as per HPI Reports as per [facility] Musc Reports as per [facility] Neuro Reports no additional complaints Psych Reports no additional complaints Endo Reports as per HPI Shan/Lymph Reports no additional complaints Aller/Immun Reports no additional complaints Physical Exam Const General: cooperative, healthy appearing, comfortable, no acute distress, well developed, alert and awake Nutritional Appearance: overweight Orientation/consciousness: patient oriented x3 Limitations: no limitations HEENT Head: Yes normal to inspection, Yes normocephalic and Yes atraumatic Ears: hearing grossly normal bilaterally Eyes General: appearance normal, both eyes and all related structures Neck Neck: Yes normal visual inspection and Yes trachea midline Chest Chest palpation & inspection: normal inspection of the chest Resp Effort & Inspection: normal respiratory effort and able to speak in complete sentences Cardio Rate: regular rate GI Inspection: Yes normal to inspection General: Yes no CVA tenderness Penis: normal penis and circumcised Back/Spine/Pelvis Back: no CVA tenderness Skin General skin exam: no rashes or lesions noted Neuro General: patient oriented x3 Extrem General: Yes normal to inspection Psych Appearance: grossly normal and well kempt Mental Status: mental status grossly normal Speech and movement: Normal speech and movement present and Clear speech present Affect: normal affect Attitude: cooperative Thought process: Normal thought process present Thought content: Normal thought content present Insight: Fair insight present (Psych) Judgement: Fair judgement present (Psych) Assessment & Plan Assessment & Plan (1) Erectile dysfunction associated with type 2 diabetes mellitus: Code(s): E11.69 - Type 2 diabetes mellitus with other specified complication; N52.1 - Erectile dysfunction due to diseases classified elsewhere Category: Medical Plan In office penile injection performed and teaching provided; as noted above Education provided. Discussed priapism and treatments as well as signs and symptoms on when to seek medical treatment. All questions were answered. Discussed risks and benefits of penile injection therapy as well as further treatment options for erectile dysfunction. Discussed lifestyle modifications to assist with erectile dysfunction. Discussed, stress, and educated on the importance of managing diabetes for improvement in ED as well as overall health and well-being. Patient currently denies any bothersome urinary issues or concerns. Patient reports be happy with current voiding parameters. Follow-up in 3 months; or sooner with any issues, concerns, and or questions. Patient Instructions: The patient had an opportunity to ask questions regarding the treatment plan. All questions were answered. Physical exam, labs, and imaging were discussed and reviewed in detail. As well as risks, benefits, and discussion of treatment choices. No major barriers to understanding were identified. The patient e xpressed understanding and agreement with the above treatment plan. The patient was made aware they should contact our office by phone for worsening of their current condition, the appearance of new symptoms, or with any questions or concerns. Compliance is encouraged with any medications and follow up testing that is ordered. It is a privilege to be allowed the opportunity to participate in? your urological care.? Again, if you have any questions or concerns If you have any questions or concerns please do not hesitate to contact me. The office is [phone]. This note is constructed using voice recognition software. While every effort has been made to ensure accuracy hyperion developer errors may have been included. Yours sincerely, OLAF Nelson Coding Level of Care Code Est Pt Level 3 (77002) Complex EM visit Add On G2211 Diagnoses Erectile dysfunction associated with type 2 diabetes mellitus E11.69; N52.1
== END 2024-05-13 12:32 | disposition home or self-care (01) ==
PROVIDERS: PCP Internal Medicine; Visit Provider Nurse Practitioner Family
DX: E11.69 Type 2 diabetes mellitus with other specified complication (principal); N52.1 Erectile dysfunction due to diseases classified elsewhere
CPT/HCPCS: 99213

== ENCOUNTER → 2024-05-13 11:25 | Outpatient (BNVA) | payer MEDICAID, SELFPAY | PROVIDERS: PCP Internal Medicine; Visit Provider Nurse Practitioner Family | DX: E11.69 Type 2 diabetes mellitus with other specified complication (principal); N52.03 Combined arterial insufficiency and corporo-venous occlusive erectile dysfunction | CPT/HCPCS: 99212 ==

== ENCOUNTER 2024-05-14 10:40 | Outpatient (REF) | payer MEDICAID, SELFPAY ==
--- OUTSIDE RECORDS SUMMARY | 2024-05-14 10:42 | XMS_ITS | Continuity of Care Document ---
Author Organization [facility] Address [address] [place] [address] Phone Care Team Providers Care Human Resources Training Manager Name Role Phone You MSN, LIME KILN TENDER-YARD GOODS SALESPERSON, Kiki Unavailable Jaelyn vailable Allergies, Adverse Reactions, [...] Meter kit take 1 not specified by [facility].(non-drug; combo) route 4 times every day 1 [...] Hx. Low MDM Expanded Problem Hx. Low [facility] Administration Without Counseling Fluzone Quadrivalent Influenza Vaccine 3 Yrs + Routine EKG Screening With Interpretatio n & Report Detailed Hx/Exam Low [facility] Advance Directives Directive Yes / No Effective Date File Name No Information Encounters Encounter Description Practice Location Reason(s) For Visit Diagnoses Date Provider Providers Copied on Encounter [facility], [address] [place] [address], [id number] , tel:[phone] [facility] No Information 1 Avelino Katz [address] [facility], [id number] [place], [place], [place], [id number], [place]. tel:[phone] [facility], [address] [place] [address], [id number] , tel:[phone] [facility] No Information 9 Shawn Gandhi. [address] [place] [address] , [id number] [place], [place], [address], [place]. tel:[phone] Expanded Problem Hx. Low [facility], [address] [place] [address], [id number] , [place] tel:[phone] [facility] Follow Up of flank pain (chief complaint) Body mass index (BMI) 38.0-38.9, adultType 2 diabetes mellitus without complication, with long-term current use of insulinAbdomi nal bloatingRight kidney mass 9 Avelino Katz [address] [facility], [id number] [place], [place], [place], [id number], [place]. tel:[phone] Expanded Problem Hx. Low [facility], [address] [place] [address], [id number] , tel:[phone] [facility] diabetes (chief complaint). (chief complaint) Right kidney massType 2 diabetes mellitus with hyperglycemia Body mass index (BMI) 37.0-37.9, adult Sep-0 9 You Kiki. [address] [facility], [id number] [place], [place], [place], [id number], [place]. tel:[phone] [facility], [address] [place] [address], [id number] , [place] tel:[phone] [facility] No Information You Kiki. [address] [facility], [id number] [place], [place], [place], [id number], [place]. tel:[phone] Detailed Hx/Ex Moderate [facility], [address] [place] [address], [id number] , [place] [phone] [facility] Follow Up of diabetes (chief complaint)Gas (chief complaint) Body mass index (BMI) 38.0-38.9, adultType 2 diabetes mellitus without complication, with long-term current use of insulinDiarrh ea, unspecified typeDDD (degenerative disc disease), cervicalEssen tial hypertensionH yperlipidemia , unspecified hyperlipidemi a typeHistory of UT (myocardial infarction) You Kiki. [address] [facility], [id number] [place], [place], [place], [id number], [place]. tel:[phone] Detailed Hx/Ex Moderate [address], [id number] , [place] tel:[phone] [facility] flank pain (chief complaint)Ski n tag(s) (chief [...] kevin surgical wound 9 You Kiki. [address] [facility], [id number] [place], [place], [place], [id number], [place]. tel:[phone] [facility], [address] [place] [address], [id number] , [place] tel:[phone] [facility] No Information 9 You Kiki. [address] [facility], [id number] [place], [place], [place], [id number], [place]. tel:[phone] Detailed Hx/Ex Moderate [facility], [address] [place] [address], [id number] , [place] tel:[phone] [facility] diabetes (chief complaint)hyp ertension (chief complaint)fol low up [facility] (chief complaint)Fla nk pain (chief complaint) Body mass index (BMI) 37.0-37.9, adultClosed fracture of multiple ribs of right side with routine healing, subsequent encounterEsse ntial hypertensionH yperlipidemia , unspecified hyperlipidemi a typeType 2 diabetes mellitus with hyperglycemia History of UT (myocardial infarction)Ot her diabetic neurological complication associated with type 2 diabetes mellitus 9 You Kiki. [address] [facility], [id number] [place], [place], [place], [id number], [place]. tel:[phone] Expanded Problem Hx. Low [facility], [address] [place] [address], [id number] , [place] tel:[phone] [facility] Follow Up of Shoulder pain (chief complaint) Body mass index (BMI) 37.0-37.9, adultLeft anterior shoulder pain 9 You Kiki. [address] [facility], [id number] [place], [place], [place], [id number], [place]. tel:[phone] Expanded Problem Hx. [address], [id number] , [place] tel:[phone] [facility] shoulder pain (chief complaint) Body mass index (BMI) 37.0-37.9, adultLeft anterior shoulder pain 8 9 Avelino Swanson. [address] [place] [address], [id number] [place], [place], [place], [id number], [place]. tel:[phone] Expanded Problem Hx. [address], [id number] , [place] tel: [phone] [facility] immunizations (chief complaint)Khushbu st pain (chief complaint)alejandro betes (chief complaint) Body mass index (BMI) 38.0-38.9, adultType 2 diabetes mellitus with hyperglycemia Essential hypertension 9 No Information Expanded Problem Hx. [address], [id number] , tel: [phone] [facility] shoulder pain (chief complaint)alejandro betes (chief complaint) Body mass index (BMI) 38.0-38.9, adultType 2 diabetes mellitus with hyperglycemia Bilateral claudication of lower limbDeltoid tendonitis of left shoulder 9 No Information Expanded Problem Hx. [address], [id number] , tel: [phone] [facility] elbow pain (chief complaint)fol low up on lab test(s) (chief complaint)alejandro betes (chief complaint) Body mass index (BMI) 38.0-38.9, adultArthriti s of elbow, leftType 2 diabetes mellitus with hyperglycemia 3 8 No Information [address], [id number] , [place] tel:[phone] [facility] No Information 6 8 No Information Detailed Hx/Exam [address], [id number] , tel:[phone] [facility] establish pcp (chief complaint)alejandro joel (chief complaint)hyp ertension (chief complaint) Body mass index (BMI) 37.0-37.9, adultAcute stress reactionEssen tial hypertensionT ype 2 diabetes mellitus without complication, with long-term current use of insulinFlu vaccine needHyperlipi demia, unspecified hyperlipidemi a typeHistory of UT (myocardial infarction)Ot her diabetic neurological complication associated with type 2 diabetes mellitusLeft arm pain 5-201 8 No Information Family History Family Member Type Diagnosis Age At Onset No Information Immunizations Vaccine Date Status Comments Tdap administered Source: New Imm unization Record Influenza, injectable, quadrivalent, preservative free, 3 yrs or older administered Source: New Immuniz ation Record Payers Payer name Insurance type Covered democrat ID Authoriza tion(s) [facility] [id number] [facility] [id number] [facility] [id number] [facility] [id number] [facility] [id number] [facility] [id number] Social History Type Description Quantity Date Captured [...] Lab Order COMPREHE NSIVE METABOLIC PANEL W/EGFR ([id number]), Ordered on: Ordered History Of Present Illness [...] patient. diabetes Risk factors inc lude: / Peruvian, family history diabetes mellitus, obesity, over age [...] of diabetes Risk facto rs include: / Peruvian, family history diabetes mellitus, obesity, over age [...] having pain, out of medication. Was at [facility] in August for fractured ribs on the [...] 06 with the vascular surgeon. . The agri business agent phone was used through this entire visit. Patient speaks only Austrian. follow up [facility] Was at [facility] for rib pain. Flank pain [...] unable to sleep d/t pain, at [facility] in August for fx of right rib. hypertension Comorbid conditi ons include diabetes mellitus and post-UT. Risk factors include family history HTN, gout or CAD, inactive lifestyle, male gender and obesity. The hypertension is exacerbated by nothing. Pertinent negatives include chest pain, claudication, confusion, diaphoresis, dyspnea, epistaxis, fatigue, headache, hematuria, irregular heartbeat/palpitations, nausea, tinnitus, transient weakness, tremor, visual disturbances and vomiting. Additional information: medication refills diabetes Risk factors inc lude: / Peruvian, family history diabetes mellitus, obesity, over age [...] excludes tobacco use. Patient was seen at [facility] last for chest pain. Patient states he took nitro x 3 before going to the hospital. Stress test and CTA of chest were unremarkable. immunizations Patient wants te tanus vaccine. diabetes Risk factors inc lude: / Peruvian, family history diabetes mellitus and sedentary lifestyle. [...] shoulder. diabetes Risk factors inc lude: / Peruvian, family history diabetes mellitus and sedentary lifestyle. [...] weakness. diabetes Risk factors inc lude: / Peruvian, family history diabetes mellitus and sedentary lifestyle. Pertinent negatives include blurred vision, burning of extremities, chest pain, constant hunger, dental disease, diarrhea, dysesthesias, dyspnea, foot ulcers, frequent infections, frequent urination, heartburn, hypoglycemic episodes, increased fatigue, nocturia, polydipsia and slow healing wounds / sores. diabetes Risk factors inc lude: / Peruvian, family history diabetes mellitus and sedentary lifestyle. Pertinent negatives include chest pain, diarrhea and dyspnea. Additional information: establishing care today- needs all refills and glucometer. hypertension Comorbid conditi ons include diabetes mellitus and post-UT. Risk factors include family history HTN, gout or CAD and male gender. Pertinent negatives include chest pain, dyspnea, fatigue, headache, hematuria, irregular heartbeat/palpitations, nausea and vomiting. Additional information: establishing care- needs to also establish with cardiology for annual check ups establish pcp Patient presents today to establish PCP. PMH: diabetes, hypertension, hyperlipidemia, gerd, neuropathy, UT 2013- cardiac bypass surgey, 5 stents placed, Hx stroke 2015 last saw his heart doctor 4 months ago, was going ever 6 months in [place], recently moved here - needs cardiology referral [...]
[2024-05-14 14:10] LABS: MANUAL DIFF FLAG NO
[2024-05-14 14:20] LABS: Basophils Percent Auto 0.3 % (0-2); Eosinophils Absolute Auto 0.3 X10*3/uL (0.0-0.4); Eosinophils Percent Auto 4.1 % (0-4); Hematocrit 38.2 % (42.0-52.0); Hemoglobin 12.7 g/dl (14.0-18.0); Imm Gran Abs Auto 0.01 X10*3/uL (0.00-0.03); Imm Gran Pct Auto 0.2 % (0.0-0.4); Lymphocytes Absolute Auto 1.8 X10*3/uL (1.2-4.9); Lymphocytes Percent Auto 26.9 % (20-40); Mean Corpuscular HGB Conc 33.2 g/dl (31.0-36.0); Mean Corpuscular Hemoglobin 27.7 pg (27.0-33.0); Mean Corpuscular Volume 83.4 fL (80.0-98.0); Mean Platelet Volume 10.7 fL (9.4-12.4); Monocytes Absolute Auto 0.5 X10*3/uL (0.1-1.2); Monocytes Percent Auto 7.7 % (2-11); Neutrophils Percent Auto 60.8 % (45-73); Platelet Count 191 X10*3/uL (160-400); Red Blood Count 4.58 X10*6/uL (4.60-5.80); Red Cell Distribution Width 15.7 % (11.0-16.0); White Blood Count 6.5 X10*3/uL (4.8-10.8)
[2024-05-14 14:33] LABS: Alanine Aminotransferase 20 U/L (0-40); Albumin Level 4.1 g/dL (3.5-5.0); Alkaline Phosphatase 73 U/L (39-117); Anion Gap 9 (12-20); Aspartate Amino Transferase 24 U/L (5-37); Bilirubin Total 0.4 mg/dL (0.0-1.0); Blood Urea Nitrogen 15 mg/dL (9-16); Calcium 8.3 mg/dL (8.4-10.2); Carbon Dioxide 26 mmol/L (22-29); Chloride 110 mmol/L (96-108); Cholesterol 122 mg/dL (<200); Estimated Glomerular Filt Rate > 60; Glucose Random 130 mg/dL (60-115); HDL Cholesterol 44 mg/dL (>40); LDL Cholesterol Calculated 64 mg/dL (<100); Potassium 3.8 mmol/L (3.3-5.1); Sodium 141 mmol/L (135-145); Total Protein 7.4 g/dL (6.5-8.0); Triglycerides 71 mg/dL (<150)
[2024-05-14 14:50] LABS: TSH reflex Free T4 0.63 uIU/mL (0.32-4.0)
== END 2024-05-14 10:41 | disposition home or self-care (01) ==
LOC: HO.CHCLDS 10:40
PROVIDERS: Visit Provider Internal Medicine
DX: E11.65 Type 2 diabetes mellitus with hyperglycemia (principal); Z79.4 Long term (current) use of insulin
CPT/HCPCS: 36415; 80053; 80061; 84443; 85025

== ENCOUNTER 2024-07-21 09:41 | Outpatient (AMB) | payer MEDICAID, SELFPAY ==
--- NOTE | 2024-07-21 09:49 | MHC.OFFVIS ---
Intake Visit Reasons: OV - right RTC repair 01/30/24 NE 3 WK follow up Intake Note: Osvaldo is a 63 year old right hand dominant male who presents today for a follow up visit of his right shoulder s/p Right RTC Repair 01/30/24. Patient was instructed to continue physical therapy however he was discharged in March and has not been back since. Allergies No Known Allergies Allergy (Verified 05/13/24 13:48) HPI HPI OV - right RTC repair 01/30/24 NE 3 WK follow up: Details: 64-year-old gentleman who is status post right rotator cuff repair doing well. He still has pain at night his range of motion is excellent. PFSH Medical History Arthritis Asthma Peripheral arterial occlusive disease Hyperlipidemia IBS (irritable bowel syndrome) Benign prostatic hyperplasia without lower urinary tract symptoms GERD (gastroesophageal reflux disease) Chronic kidney disease Acute kidney failure Abdominal bloating Painful arc syndrome of right shoulder Chronic idiopathic constipation Tubular adenoma Myocardial infarct, old Diabetes PVD (peripheral vascular disease) CAD (coronary artery disease) Family history of prostate cancer Scrotal swelling Elevated PSA Surgical History Hx of aorto-femoral bypass History of coronary artery stent placement Hx of coronary angioplasty Hx of ligation of vein History of esophagogastroduodenoscopy (EGD) Hx of colonoscopy Hx of arthroscopic knee surgery History of surgery History of vascular surgery History of cardiac cath Family History Maternal Grandmother Diabetes Paternal Grandmother Diabetes Brother Diabetes Mother No problems noted. 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 Follow up 3 months. Coding Level of Care Code Est Pt Level 3 (78712) Diagnoses S/P right rotator cuff repair Z98.890
--- OUTSIDE RECORDS SUMMARY | 2024-07-21 10:36 | XMS_ITS | Encounter Summary ---
Author Organization [employer] Address [address] [facility] [address] [place] [address] Care Team Providers Care Command And Control Officer Name Role Phone Juan Miguel Tinajero MD Primary Care Provider [phone] Juan Cordova PharmD Unavailable Unavail able Reason for Visit * Reason Comments Med Refill Encounter Details Date Type Department Care Team ([facility] Contact Info) Description 03/28/2024 Refill [facility]S [address] [place], [place] [phone] Juan Miguel Tinajero MD [address] [place] [address] Sore throat; Bacterial conjunctivitis; Chronic pain syndrome Social History Tobacco Use Types Packs/Day Years Used Date Smoking Tobacco: Former Cigarettes Q uit: 2013 Passive Smoke Exposure: Past Smokeless Tobacco: Never Alcohol Use Standard Drinks/Week Comments Not Currently 0 (1 standard drink = 0.6 oz pur e alcohol) Depression Answer Date Recorded Patient Health Questionnaire-9 Score 0 10/30/2023 Patient Health Questionnaire-9 Score 0 10/30/2023 Last PHQ-9: Questionnaire Data Not on file 0 10/30/2023 Housing Stability Answer Date Recorded What is your housing situation today? Not on shanell e 03/12/[address] you li ve. Do you have problems with any of the following? None of the above 03/12/2023 Food Insecurity Answer Date Recorded Within the past 12 months, y ou worried that your food would run out before you got money to buy more: Never True 03/12/2023 Within the past 12 months,th e food you bought just didn't last and you didn't have enough money to get more: Never True Transportation Answer Date Recorded In the past 12 months, has l ack of transportation kept you from medical appts, meetings, work or from getting things needed for daily living? No 03/12/2023 Utilities Answer Date Recorded In the past 12 months, has t he electric, gas, oil or water company threatened to shut off services in your home? No 03/12/2023 Depression Answer Date Recorded Patient Health Questionnaire-2 Score 0 10/30/2023 Sex and Gender Information Value Date Recorded Sex Assigned at Male 03/27/2022 10:21 AM EDT Legal Sex Male 10:21 AM EDT Gender Identity Choose not to disclose 10:21 AM EDT Sexual Orientation Choose not to disclose 2021 10:21 AM EDT documented as of this encounter Plan of Treatment Upcoming Encounters Date Type Department Care Team (Late st Contact Info) Description 09/09/2024 9:00 AM EDT Clinical Support [facility] [address] [place] [address] Elsa Barnett RN [address] [place] [address] documented as of this encounter Goals Goal Patient Goal Type Associated Problems Recent Progress Patient-Stated? Author Blood Pressure < 140/90 Blood Pressure 145/90(2024 10:18 AM EST) No DelJuan delgado, PharmD Hemoglobin A1c < 7 Result Component 6.4( 9:31 AM EST) No Dellogbibi Juan, PharmD documented as of this encounter Visit Diagnoses Diagnosis Sore throat Acute pharyngitis Bacterial conjunctivitis Other mucopurulent conjunctivitis Chronic pain syndrome documented in this encounter Additional Health Concerns Assessment Noted Time PHQ-9 Depression Total Score: 0 10/30/19 24 10:10 AM EDT documented as of this encounter Care Teams Command And Control Officer Relationship Specialty Start Date End Date Juan Miguel Tinajero MD [address] [place] [address] PCP - General Internal Medicine 05/28/18 Juan Cordova, PharmD [address] [place] [address] Pharmacist Internal Medicine 07/14/22 Yvonne Knox Frame StraightenerHealth Professional 02/15/23 Yvonne Knox Frame StraightenerHealth Professional 04/09/24 documented as of this encounter
--- OUTSIDE RECORDS SUMMARY | 2024-07-21 10:36 | XMS_ITS | Encounter Summary ---
Author Organization [employer] Address [address] [facility] [address] [place] [address] Care Team Providers Care Documentation Designer Name Role Phone Juan Miguel Tinajero MD Primary Care Provider [phone] Juan Cordova PharmD Unavailable Unavail able Encounter Details Date Type Department Care Team ([facility] st Contact Info) Description 10/02/2023 Telephone [facility] MEDICINE [address] [place] [address] Juan Miguel Tinajero MD [address] [place], [place] [phone] Social History Tobacco Use Types Packs/Day Years Used Date Smoking Tobacco: Former Cigarettes Q uit: 2014 Smokeless Tobacco: Never Alcohol Use Standard Drinks/Week Comments Not Currently 0 (1 standard drink = 0.6 oz pur e alcohol) Depression Answer Date Recorded Patient Health Questionnaire-9 Score 1 08/30/2023 Patient Health Questionnaire-9 Score 1 08/30/2023 Last PHQ-9: Questionnaire Data Not on file 0 08/30/2023 Housing Stability Answer Date Recorded What is [...] Date Recorded Patient Health Questionnaire-2 Score 0 08/30/2023 Sex and Gender Information Value Date Recorded [...] Description 09/09/2024 9:00 AM EDT Clinical Support [facility] MED & PEDS [address] [place] [address] Elsa Barnett RN [address] [place] [address] documented as of this encounter Goals Goal Patient Goal Type Associated Problems Recent Progress Patient-Stated? Author Blood Pressure < 140/90 Blood Pressure 145/90(2024 10:18 AM EST) No Juan Cordova, PharmD Hemoglobin A1c < 7 Result Component 6.4( 4 9:31 AM EST) No Juan Cordova, PharmD documented as of this encounter Visit Diagnoses Not on filedocumented in this encounter Additional Health Concerns Assessment Noted Time PHQ-9 Depression Total Score: 1 08/30/19 24 1:41 PM EDT documented as of this encounter Care Teams Documentation Designer Relationship Specialty Start Date End Date Juan Miguel Tinajero MD [address] [place] [address] PCP - General Internal Medicine 05/28/18 Juan Cordova, PharmD [address] [place] [address] Pharmacist Internal Medicine 07/14/22 Yvonne Knox Manager Of Case ManagementSpa Receptionist 02/15/23 Yvonne Knox Manager Of Case ManagementSpa Receptionist 04/09/24 documented as of this encounter
--- OUTSIDE RECORDS SUMMARY | 2024-07-21 10:36 | XMS_ITS | Encounter Summary ---
Author Organization [employer] Address [address] [facility] 7[address] [place] [address] Care Team Providers Care Staff Services Manager Name Role Phone Juan Miguel Tinajero MD Primary Care Provider [phone] Juan Cordova PharmD Unavailable Unavail able Encounter Details Date Type Department Care Team (Late st Contact Info) Description 03/27/2023 Abstract [facility] MEDICINE [address] [place] [address] Juan Miguel Tinajero MD [address] [place], [place] [phone] Social History Tobacco Use Types Packs/Day Years Used Date Smoking Tobacco: Former Cigarettes Q uit: 2013 Smokeless Tobacco: Never Alcohol Use Standard Drinks/Week Comments Not Currently 0 (1 standard drink = 0.6 oz pur e alcohol) Depression Answer Date Recorded Patient Health Questionnaire-9 Score 1 01/02/2023 Housing Stability Answer Date Recorded What is [...] Answer Date Recorded Patient Health Questionnaire-2 Score 1 01/02/2023 Sex and Gender Information Value Date Recorded [...] Description 09/09/2024 9:00 AM EDT Clinical Support [facility]EDS [address] [place] [address] Elsa Barnett RN [address] [place] [address] documented as of this encounter Goals Goal Patient Goal Type Associated Problems Recent Progress Patient-Stated? Author Blood Pressure < 140/90 Blood Pressure 145/90(2024 10:18 AM EST) No Juan Cordova, PharmD Hemoglobin A1c < 7 Result Component 6.4( 9:31 AM EST) No Juan Cordova, PharmD documented as of this encounter Visit Diagnoses Not on filedocumented in this encounter Additional Health Concerns Assessment Noted Time PHQ-9 Depression Total Score: 1 01/03/20 23 9:06 AM EDT documented as of this encounter Care Teams Staff Services Manager Relationship Specialty Start Date End Date Juan Miguel Tinajero MD [address] [place] [address] PCP - General Internal Medicine 05/28/18 Juan Cordova, PharmD [address] [place] [address] Pharmacist Internal Medicine 07/14/22 Yvonne Knox Family EducatorAir Purifier Servicer 02/15/23 Yvonne Knox Family EducatorAir Purifier Servicer 04/09/24 documented as of this encounter
--- OUTSIDE RECORDS SUMMARY | 2024-07-21 10:36 | XMS_ITS | Encounter Summary ---
Author Organization [employer] Address [address] [facility] [address] [address] 7t [place] [address] Care Team Providers Care Aerial Photographer Name Role Phone Juan Miguel Tinajero MD Primary Care Provider +1 [phone] Juan Cordova PharmD Unavailable Unavail able Reason for Visit * Reason Comments Back Pain Encounter Details Date Type Department Care Team (Late st Contact Info) Description 06/27/2024 10:20 AM EST Office Visit [facility] [address] [place] [address] [phone] Name, MD Cameron [address] [place] [phone] Chronic low back pain with sciatica, sciatica laterality unspecified, unspecified back pain laterality (Primary Dx); Radicular pain of right lower extremity Social History Tobacco Use Types Packs/Day Years Used Date Smoking Tobacco: Former Cigarettes Q uit: 2014 Passive Smoke Exposure: Past Smokeless Tobacco: Never Tobacco Cessation:Counseling Given: Not Answered Alcohol Use Standard Drinks/Week Comments Not Currently 0 (1 standard drink = 0.6 oz pur e alcohol) Depression Answer Date Recorded Patient Health Questionnaire-9 Score 0 10/30/2023 Patient Health Questionnaire-9 Score 0 10/30/2023 Last PHQ-9: Questionnaire Data Not on file 0 10/30/2023 Housing Stability Answer Date Recorded What is your housing situation today? Not on sahnell e 05/14/[address] you li ve. Do you have problems with any of the following? None of the above 05/14/2024 Food Insecurity Answer Date Recorded Within the past 12 months, y ou worried that your food would run out before you got money to buy more: Never True 05/14/2024 Within the past 12 months,th e food you bought just didn't last and you didn't have enough money to get more: Never True Transportation Answer Date Recorded In the past 12 months, has l ack of transportation kept you from medical appts, meetings, work or from getting things needed for daily living? No 05/14/2024 Utilities Answer Date Recorded In the past 12 months, has t he [employer], gas, oil or water company threatened to shut off services in your home? No 05/14/2024 Depression Answer Date Recorded Patient Health Questionnaire-2 Score 0 10/30/2023 Internet Access Answer Date Recorded Internet Access Q1 I am not sure 05/14/2024 Internet Access Q2 Not on file 05/14/2024 Sex and Gender Information Value Date Recorded Sex Assigned at Male 03/27/2022 10:21 AM EDT Legal Sex Male 10:21 AM EDT Gender Identity Choose not to disclose 10:21 AM EDT Sexual Orientation Choose not to disclose 2021 10:21 AM EDT documented as of this encounter Last Filed Vital Signs Vital Sign Reading Time Taken Comments Blood Pressure 145/90 06/27/2024 10:18 AM EST Pulse 79 06/27/2024 10:18 AM EST Temperature 36.6 ??C (97.8 ??F) 06/27/2024 10:[address] Respiratory Rate 17 06/27/2024 10:18 AM EST Oxygen Saturation - - Inhaled Oxygen Concentration - - Weight 86.7 kg (191 lb 3.2 oz) 06/27/2024 10:18 AM EST Height 162.6 cm (5' 4 ) 06/27/2024 10:18 AM EST Body Mass Index 32.82 06/27/2024 10:18 AM EST documented in this encounter Progress Notes * Cameron Henning MD - 06/27/2024 10:20 AM EST Subjective Patient ID: Osvaldo Brito is a 63 y.o. adult who presents for Back Pain. Patient comes complaining of exacerbation of chronic low back pain with radiation to the right leg.The patient explains to me pain has been severe for the past week. The patient has many years with recurrent low back pain. He used to be seen at a pain clinic. He was treated with lumbar spine injections in the past that did not help much. The patient uses acetaminophen and tramadol at home with very little improvement. He avoids the use of NSAIDs because of a history of CKD but most recent creatinine is normal. The patient does not have any history of trauma, no associated GI or complaints, no focal weakness or sensory deficit. The patient has antalgic gait and he uses a cane chronically because of this pain. Back Pain Pertinent negatives include no chest pain or fever. Review of Systems Constitutional: Negative for chills and fever. Respiratory: Negative for cough and shortness of breath. Cardiovascular: Negative for chest pain. Musculoskeletal: Positive for back pain. Visit Vitals BP (!) 145/90 (BP Location: Left arm, Patient Position: Sitting, BP Cuff Size: Adult) Pulse 79 Temp 97.8 ??F (36.6 ??C) (Temporal) Resp 17 Ht 5' 4 (1.626 m) Wt 191 lb 3.2 oz (86.7 kg) BMI 32.82 kg/m?? Smoking Status Former BSA 1.98 m?? Objective Physical Exam Constitutional: General: Osvaldo is not in acute distress. Appearance: Osvaldo is not toxic-appearing. Cardiovascular: Rate and Rhythm: Normal rate and regular rhythm. Pulmonary: Effort: Pulmonary effort is normal. No respiratory distress. Musculoskeletal: Lumbar back: Spasms and tenderness present. No bony tenderness. Neurological: Mental Status: Osvaldo is oriented to person, place, and time. Motor: No weakness. Assessment/Plan Diagnoses and all orders for this visit: Chronic low back pain with sciatica, sciatica laterality unspecified, unspecified back pain laterality Comments: Patient presented with exacerbation of chronic low back pain with right leg radiculopathy. I recommended a short course of Celebrex. He is encouraged to call PCP if not much better by next week. Orders: - POCT urinalysis dipstick manually resulted Radicular pain of right lower extremity - POCT urinalysis dipstick manually resulted Other orders - celecoxib (CeleBREX) 200 MG capsule; Take 1 capsule (200 mg) by mouth 2 times daily for 5 days. documented in this encounter Plan of Treatment Upcoming Encounters Date Type Department Care Team (Late st Contact Info) Description 09/09/2024 9:00 AM EDT Clinical Support [facility] [address] [place] [address] Elsa Barnett, RN [address] [place] [address] documented as of this encounter Goals Goal Patient Goal Type Associated Problems Recent Progress Patient-Stated? Author Blood Pressure < 140/90 Blood Pressure 145/90(2024 10:18 AM EST) No Juan Cordova PharmConstantin Hemoglobin A1c < 7 Result Component 6.4( 9:31 AM EST) No Juan Cordova PharmD documented as of this encounter Procedures Procedure Name Priority Date/Time Associated Diagnosis Comments POCT URINALYSIS DIPSTICK Routine 06/27/2024 10:38 AM EST Chronic low back pain with sciatica, sciatica laterality unspecified, unspecified back pain laterality Radicular pain of right lower extremity documented in this encounter Results * (ABNORMAL) POCT urinalysis dipstick manually resulted (06/27/2024 10:38 AM EST) Color, UA Yellow Clarity, UA Clear Glucose, UA Negative Bilirubin, UA Negative Ketones, UA Negative Spec Grav, UA 1.025 Blood, UA Positive(A) Negative, None Detected Comment:TRACE-INTACT pH, UA 5.5 Protein, UA Trace Comment:300 mg/dl Urobilinogen, UA 0.2 Leukocytes, UA Negative Negative, Rare, Trace Nitrite, UA Negative Negative, None Detected Urine 06/27/2024 10:3 8 AM EST Cameron Henning MD POINT OF CARE TEST ENTER/EDIT OR DERABLES Final Result documented in this encounter Visit Diagnoses Diagnosis Chronic low back pain with sciatica, sciatica laterality unspecified, unspecified back pain laterality- Primary Radicular pain of right lower extremity documented in this encounter Additional Health Concerns Assessment Noted Time PHQ-9 Depression Total Score: 0 06/04/20 24 10:10 AM EDT documented as of this encounter Care Teams Aerial Photographer Relationship Specialty Start Date End Date Juan Miguel Tinajero MD [address] [facility] [address] PCP - General Internal Medicine 05/28/18 Juan Cordova PharmD 505 [place] [address] Pharmacist Internal Medicine 07/14/22 Yvonne Knox Hand EmbroidererFish Boning Machine Feeder 02/15/23 Yvonne Knox Hand EmbroidererFish Boning Machine Feeder 04/09/24 documented as of this encounter
--- OUTSIDE RECORDS SUMMARY | 2024-07-21 10:36 | XMS_ITS | Encounter Summary ---
Author Organization [employer] Address [address] [facility] 7t [place] [address] Care Team Providers Care Student Education Specialist Name Role Phone Juan Miguel Tinajero MD Primary Care Provider [phone] [phone] Juan Cordova PharmD Unavailable Unavail able Reason for Visit * Reason Onset Date Comments ER Follow-up 07/20/2023 Encounter Details Date Type Department Care Team ([facility] st Contact Info) Description 07/20/2023 Telephone [facility] [address] [place] [address] Juan Miguel Tinajero MD [address] [place] [address] ER Follow-up Social History Tobacco Use Types Packs/Day Years Used Date Smoking Tobacco: Former Cigarettes Q uit: 2013 Smokeless Tobacco: Never Alcohol Use Standard Drinks/Week Comments Not Currently 0 (1 standard drink = 0.6 oz pur e alcohol) Depression Answer Date Recorded Patient Health Questionnaire-9 Score 3 07/03/2023 Patient Health Questionnaire-9 Score 3 07/03/2023 Last PHQ-9: Questionnaire Data Not on file 0 07/03/2023 Housing Stability Answer Date Recorded What is [...] Date Recorded Patient Health Questionnaire-2 Score 0 07/03/2023 Sex and Gender Information Value Date Recorded Sex Assigned at Male 03/27/2022 10:21 AM EDT Legal Sex Male 10:21 AM EDT Gender Identity Choose not to disclose 10:21 AM EDT Sexual Orientation Choose not to disclose 2021 10:21 AM EDT documented as of this encounter Miscellaneous Notes * Telephone Encounter - Mamta Vargas RN - 07/20/2023 11:59 AM EST TC placed to patient via [employer] regarding message below. Patient reports that 8 days ago, he had a fall and hit his L side and was evaluated at [facility] ED. They said he didn't break anything, but he is continuing to have L-sided pain in the area of his ribs. He denies bruising in the area,and he says that aspirin, tramadol, and another anti-inflammatory that was prescribed are not helping. Denies other symptoms. Advised to go to [facility] today for evaluation and patient agrees. Patient states he will go there this afternoon and see what can be done. Patient also scheduled for f/u visit with PCP on 07/31/23 @ 3:45pm. Advised to call us or seek care if symptoms persist/worsen or other symptoms develop. Routing note to PCP so he is aware. Patient calling to report ED visit on : Date: 07/12/2023 Hospital: [facility] Seen for: Fall Patient advised will forward to team nurse for follow up. Symptom: Chest Injury Outcome: Talk to a nurse or provider within 15 minutes Reason: Left Rib The caller accepted this outcome Yvonne Roseline [phone] * Telephone Encounter - Tsering Pastrana - 07/20/2023 11:40 AM EST Patient calling to report ED visit on : Date: 07/12/2023 Hospital: [facility] Seen for: Fall Patient advised will forward to team nurse for follow up. Symptom: Chest Injury Outcome: Talk to a nurse or provider within 15 minutes Reason: Left Rib The caller accepted this outcome Yvonne BRUNSON [phone] documented in this encounter Plan of Treatment Upcoming Encounters Date Type Department Care Team (Late st Contact Info) Description 09/09/2024 9:00 AM EDT Clinical Support [facility] [address] [place] [address] Elsa Barnett RN [address] [place] [address] documented as of this encounter Goals Goal [...] Assessment Noted Time PHQ-9 Depression Total Score: 3 07/03/19 24 9:13 AM EST documented as of this encounter Care Teams Student Education Specialist Relationship Specialty Start Date End Date Juan Miguel Tinajero MD [address] [place] [address] PCP - General Internal Medicine 05/28/18 Juan Cordova, PharmD 505 [place] [address] Pharmacist Internal Medicine 07/14/22 Yvonne Knox Fixed Wing Aircraft Flight MechanicManager Legal 02/15/23 Yvonne Knox Fixed Wing Aircraft Flight MechanicManager Legal 04/09/24 documented as of this encounter
--- OUTSIDE RECORDS SUMMARY | 2024-07-21 10:36 | XMS_ITS | Encounter Summary ---
Author Organization [employer] Address [address] [facility] 7t [place] [address] Care Team Providers Care Brush Operator Name Role Phone Juan Miguel Tinajero MD Primary Care Provider [phone]- [phone] Juan Cordova PharmD Unavailable Unavail able Reason for Visit * Reason Comments Med Refill Encounter Details Date Type Department Care Team (Late Contact Info) Description 12/18/2022 Refill [facility] [address] [place], [place] [phone] Juan Miguel Tinajero MD 505 [place] [address] Back pain, unspecified back location, unspecified back pain laterality, unspecified chronicity Social History Tobacco Use Types Packs/Day Years Used Date Smoking Tobacco: Former Cigarettes Q uit: 2014 Smokeless Tobacco: Never Alcohol Use Standard Drinks/Week Comments Not Currently 0 (1 standard drink = 0.6 oz pur e alcohol) Sex and Gender Information Value Date Recorded Sex Assigned at Male 03/27/2022 10:21 AM EDT Legal Sex Male 10:21 AM EDT Gender Identity Choose not to disclose 10:21 AM EDT Sexual Orientation Choose not to disclose 2021 10:21 AM EDT COVID-19 Exposure Response Date Recorded In the last 10 days, have yo u been in contact with someone who was confirmed or suspected to have Coronavirus/COVID-19? No / Unsure 11/22/2022 2:23 PM EDT documented as of this encounter Plan of Treatment Upcoming Encounters Date Type Department Care Team (Late Contact Info) Description 09/09/2024 9:00 AM EDT Clinical Support [facility] [address] [place] [address] Elsa Barnett, JENS [address] [place] [address] documented as of this encounter Goals Goal Patient Goal Type Associated Problems Recent Progress Patient-Stated? Author Blood Pressure < 140/90 Blood Pressure 145/90(2024 10:18 AM EST) No Juan Cordova, PharmD Hemoglobin A1c < 7 Result Component 6.4( 9:31 AM EST) No Juan Cordova, PharmD documented as of this encounter Visit Diagnoses Diagnosis Back pain, unspecified back location, unspecified back pain laterality, unspecified chronicity documented in this encounter Additional Health Concerns Assessment Noted Time PHQ-9 Depression Total Score: 1 10/03/19 23 10:17 AM EDT documented as of this encounter Care Teams Brush Operator Relationship Specialty Start Date End Date Juan Miguel Tinajero MD [address] [place] [address] PCP - General Internal Medicine 05/28/18 Juan Cordova, PharmD [address] [place] [address] Pharmacist Internal Medicine 07/14/22 Yvonne Knox Transformation ManagerPig Machine Operator Helper 02/15/23 Yvonne Knox Transformation ManagerPig Machine Operator Helper 04/09/24 documented as of this encounter
--- OUTSIDE RECORDS SUMMARY | 2024-07-21 10:36 | XMS_ITS | Encounter Summary ---
Author Organization [employer] Address [address] [facility] 7t [place] [address] Care Team Providers Care Network Operations Specialist Name Role Phone Juan Miguel Tinajero MD Primary Care Provider [phone]- [phone] Juan Cordova PharmD Unavailable Unavail able Encounter Details Date Type Department Care Team (Late st Contact Info) Description 12/03/[address] [facility] [address] [place], [place] [phone] Juan Miguel Tinajero MD 505 [place] [address] Type 2 diabetes mellitus with both eyes affected by mild nonproliferative retinopathy without macular edema, with long-term current use of insulin ([facility]) (Primary Dx) Social History Tobacco Use Types Packs/Day Years [...] Description 09/09/2024 9:00 AM EDT Clinical Support [facility] [address] [place] [address] Elsa Barnett RN [address] [place] [address] documented as of this encounter Goals Goal Patient Goal Type Associated Problems Recent Progress Patient-Stated? Author Blood Pressure < 140/90 Blood Pressure 145/90(2024 10:18 AM EST) No Dellogono, Juan, PharmD Hemoglobin A1c < 7 Result Component 6.4( 9:31 AM EST) No Dellogono, Juan, PharmD documented as of this encounter Visit Diagnoses Diagnosis Type 2 diabetes mellitus with both eyes affected by mild nonproliferative retinopathy without macular edema, with long-term current use of insulin ([facility])- Primary documented in this encounter Additional Health Concerns Assessment Noted Time PHQ-9 Depression Total Score: 0 10/30/19 24 10:10 AM EDT documented as of this encounter Care Teams Network Operations Specialist Relationship Specialty Start Date End Date Juan Miguel Tinajero MD [address] [place] [address] PCP - General Internal Medicine 05/28/18 Juan Cordova, EbonieD [address] [place] [address] Pharmacist Internal Medicine 07/14/22 Yvonne Knox Stock HangerManager Oracle Database 02/15/23 Yvonne Knox Stock HangerManager Oracle Database 04/09/24 documented as of this encounter
--- OUTSIDE RECORDS SUMMARY | 2024-07-21 10:36 | XMS_ITS | Encounter Summary ---
Author Organization [employer] Address [address] [facility] 7t [place] [address] Care Team Providers Care Powder Worker Tnt Name Role Phone Juan Miguel Tinajero MD Primary Care Provider [phone] [phone] Juan Cordova PharmD Unavailable Unavail able Reason for Visit * Reason Comments Med Refill Encounter Details Date Type Department Care Team ([facility] Contact Info) Description 07/08/2024 Refill [facility] [address] [place], [place] [phone] Juan Miguel Tinajero MD [address] [place] [address] Complains of low back pain Social History Tobacco Use Types Packs/Day Years [...] housing situation today? Not on shanell e 05/14/[address] you [...] Upcoming Encounters Date Type Department Care Team ([facility] st Contact Info) Description 09/09/2024 9:00 AM EDT Clinical Support [facility] [address] [place] [address] Elsa Barnett RN [address] [place] [address] documented as of this encounter Goals Goal Patient Goal Type Associated Problems Recent Progress Patient-Stated? Author Blood Pressure < 140/90 Blood Pressure 145/90(2024 10:18 AM EST) No Dellogono, Juan, PharmD Hemoglobin A1c < 7 Result Component 6.4( 9:31 AM EST) No Dellogono, Juan, PharmD documented as of this encounter Visit Diagnoses Diagnosis Complains of low back pain documented in this encounter Additional Health Concerns Assessment Noted Time PHQ-9 Depression Total Score: 0 10/30/19 24 10:10 AM EDT documented as of this encounter Care Teams Powder Worker Tnt Relationship Specialty Start Date End Date Juan Miguel Tinajero MD [address] [place] [address] PCP - General Internal Medicine 1/1/19 Juan Cordova, PharmD [address] [place] [address] Pharmacist Internal Medicine 07/14/22 Yvonne Knox Concrete Paving Machine OperatorChild Development Specialist 02/15/23 Yvonne Knox Concrete Paving Machine OperatorChild Development Specialist 04/09/24 documented as of this encounter
--- OUTSIDE RECORDS SUMMARY | 2024-07-21 10:36 | XMS_ITS | Encounter Summary ---
Author Organization [employer] Address [address] [facility] 7t [place] [address] Care Team Providers Care Warehouse Unloader Name Role Phone Juan Miguel Tinajero MD Primary Care Provider [phone] [phone] Juan Cordova PharmD Unavailable Unavail able Reason for Visit * Reason Comments Med Refill Encounter Details Date Type Department Care Team ([facility] Contact Info) Description 07/05/2024 Refill [facility]S [address] [place], [place] [phone] Juan Miguel Tinajero MD [address] [place] [address] Sore throat; Bacterial conjunctivitis; Chronic pain syndrome [...] Description 09/09/2024 9:00 AM EDT Clinical Support [facility] [address] [place] [address] Elsa Barnett RN [address] [place] [address] documented as of this encounter Goals Goal [...] documented as of this encounter Care Teams Warehouse Unloader Relationship Specialty Start Date End Date Juan Miguel Tinajero MD [address] [place] [address] PCP - General Internal Medicine 05/28/18 Juan Cordova, PharmD [address] [place] [address] DAKOTA Garcia [address] Pharmacist Internal Medicine 07/14/22 Yvonne Knox Respiratory Medicine PhysicianOffset Printing Operator 02/15/23 Yvonne Knox Respiratory Medicine PhysicianOffset Printing Operator 04/09/24 documented as of this encounter
--- OUTSIDE RECORDS SUMMARY | 2024-07-21 10:36 | XMS_ITS | Encounter Summary ---
Author Organization [employer] Address [address] [facility] 7t [place] [address] Care Team Providers Care Fire Hose Curer Name Role Phone Juan Miguel Tinajero MD Primary Care Provider [phone] [phone] Juan Cordova PharmD Unavailable Unavail able Reason for Visit * Reason Comments Med Refill Encounter Details Date Type Department Care Team ([facility] st Contact Info) Description 10/31/2023 Refill [facility] PEDS [address] [place], [place] [phone] Juan Miguel Tinajero MD [address] [place] [address] Chronic right shoulder pain; Pain in right shoulder; Back pain, unspecified back location, unspecified back [...] Upcoming Encounters Date Type Department Care Team ([facility] st Contact Info) Description 09/09/2024 9:00 AM EDT Clinical Support [facility] [address] [place] [address] Elsa Barnett RN [address] [place] [address] documented as of this encounter Goals Goal Patient Goal Type Associated Problems Recent Progress Patient-Stated? Author Blood Pressure < 140/90 Blood Pressure 145/90(2024 10:18 AM EST) No Dellogono, Juan, PharmD Hemoglobin A1c < 7 Result Component 6.4( 9:31 AM EST) No Dellogono, Juan, PharmD documented as of this encounter Visit Diagnoses Diagnosis Chronic right shoulder pain Pain in joint, shoulder region Pain in right shoulder Back pain, unspecified back location, unspecified back pain laterality, unspecified chronicity documented in this encounter Additional Health Concerns Assessment Noted Time PHQ-9 Depression Total Score: 0 10/30/19 24 10:10 AM EDT documented as of this encounter Care Teams Fire Hose Curer Relationship Specialty Start Date End Date Juan Miguel Tinajero MD [address] [place] [address] PCP - General Internal Medicine 05/28/18 Juan Cordova, EbonieD [address] [place] [address] Pharmacist Internal Medicine 07/14/22 Yvonne Knox Retail And Restaurant AssociateProcess Lead 02/15/23 Yvonne Knox Retail And Restaurant AssociateProcess Lead 04/09/24 documented as of this encounter
--- OUTSIDE RECORDS SUMMARY | 2024-07-21 10:36 | XMS_ITS | Clinical Summary ---
Author Organization [employer] Address [address] [facility] [address] [place] [address] Care Team Providers Care Utility Spray Operator Name Role Phone Juan Miguel Tinajero MD Primary Care Provider [phone] Juan Cordova PharmD Unavailable Unavail able Allergies No known active allergies Medications * This document contains information received from the source organization and may not represent a complete record from that organization. Nebulizers (Compressor/Nebuli zer) misc Inhale every 4 (four) hours. Active albuterol (2.5 MG/3ML) 0.083% nebulizer solution inhale 3 milliliter by nebulization route 4 times every day prn as needed Active albuterol 108 (90 Base) MCG/ACT inhaler inhale 2 puff by inhalation route once every 4 to 6 hours as needed. Active fexofenadine (Misty) 180 MG tablet Take 1 tablet by mouth. Every day Active naloxone (Narcan) 4 mg/0.1 mL nasal spray Administer 0.1 mL into affected nostril(s). Active pantoprazole (ProtoNix) 20 MG EC tablet Take 1 tablet by mouth before breakfast and before evening meal. Active sennosides (Senokot) 8.6 MG tablet 1 tablet. As needed for constipation Active docusate sodium (Colace) 100 MG capsule Take 1 capsule by mouth in the morning. Active famotidine (Pepcid) 20 MG tablet Take 1 tablet by mouth at bedtime. Active SM Vitamin D3 50 MCG capsule TAKE ONE CAPSULE EVERY MORNING 022 Active polyethylene glycol, PEG, 3350 (Glycolax) 17 GM/SCOOP powder STIR 17GM INTO 8 OUNCES OF WATER, OR JUICE, AND DRINK DAILY NEEDED / DIRECTED 023 Active Continuous Blood Gluc Non Destructive Tester (FreeStyle Michael 2 [place]) deviceIndications: Type 2 diabetes mellitus with other circulatory complication, with long-term current use of insulin ([facility]) Use to check blood sugar as directed 1 each 023 Active glucose 4 g chewable tabletIndications: Type 2 diabetes mellitus with other circulatory complication, with long-term current use of insulin ([facility]) Chew 4 tablets (16 g) if needed for low blood sugar. 50 tablet 11 023 Active fluticasone (Flonase) 50 MCG/ACT nasal sprayIndications:S easonal allergic rhinitis due to other allergic trigger INHALE 1 - 2 SPRAYS IN EACH NOSTRIL ONCE DAILY NEEDED 48 g 023 Active tadalafil (Cialis) 5 MG tablet TOME ANNETTE TABLETA VIA ORAL CADA FELIPE 023 Active cholecalciferol (Vitamin D-3) 50 MCG (2000 UT) capsule Take 2,000 Units by mouth in the morning. 023 Active Continuous Blood Gluc Sensor (FreeStyle Michael 2 Sensor) miscIndications:Ty pe 2 diabetes mellitus with other circulatory complication, with long-term current use of insulin ([facility]) USE TO TEST BLOOD SUGAR CHANGE AFTER TWO WEEKS, THREE TIMES DAILY 2 each 023 Active carvedilol (Coreg) 6.25 MG tabletIndications: Benign essential hypertension TAKE ONE TABLET TWICE DAILY IN THE MORNING AND AT BEDTIME WITH FOOD 180 tablet 3 023 Active clopidogrel (Plavix) 75 MG tabletIndications: Peripheral arterial occlusive disease ([facility]) TAKE ONE TABLET EVERY MORNING 90 tablet 3 023 Active isosorbide mononitrate ER (Imdur) 60 MG 24 hr tabletIndications: Benign essential hypertension TAKE ONE TABLET EVERY MORNING 90 tablet 1 024 Active fluticasone (Flovent HFA) 110 MCG/ACT inhalerIndications :Moderate persistent asthma without complication INHALE TWO PUFFS TWICE DAILY, RINSE MOUTH AFTER USE 12 g 024 Active Acetaminophen Extra Strength 500 MG tabletIndications: Chronic pain syndrome TAKE TWO TABLETS EVERY 6 HOURS NEEDED FOR PAIN 40 tablet 024 Active Easy Touch Lancets 33G/Twist miscIndications:Ty pe 2 diabetes mellitus with other circulatory complication, with long-term current use of insulin ([facility]) TEST BLOOD SUGAR FIVE TIMES DAILY 200 each Active risperiDONE (RisperDAL) 3 MG tabletIndications: MDD (major depressive disorder), recurrent, severe, with psychosis ([facility]) Take 1 tablet (3 mg) by mouth at bedtime. 90 tablet 3 024 Active Alcohol Swabs (Alcohol Prep) 70 % padsIndications:Ty pe 2 diabetes mellitus with diabetic peripheral angiopathy without gangrene, with long-term current use of insulin ([facility]) USE FIVE DAILY 100 each 024 Active Diclofenac Sodium 1 % gelIndications:Chr onic right shoulder pain APPLY 2 GRAM'S TO AFFECTED AREA(s) FOUR TIMES DAILY NEEDED 100 g 024 Active amLODIPine (Norvasc) 10 MG tablet TAKE ONE TABLET EVERY MORNING 90 tablet 024 Active atorvastatin (Lipitor) 80 MG tablet TAKE ONE TABLET EVERY NIGHT AT BEDTIME 90 tablet 024 Active insulin pen needle (TechLite Plus Pen [place]) 32G x 4 mm misc USE FIVE DAILY 100 each 024 Active insulin glargine (Lantus SoloStar) 100 UNIT/ML penIndications:Typ e 2 diabetes mellitus with other circulatory complication, with long-term current use of insulin ([facility]) INJECT 35 UNITS SUBCUTANEOUSLY EVERY DAY 15 mL 3 024 Active FREESTYLE LITE test stripIndications:T ype 2 diabetes mellitus with diabetic peripheral angiopathy without gangrene, with long-term current use of insulin ([facility]) TEST BLOOD SUGAR FIVE TIMES DAILY 150 strip 5 024 Active triamcinolone (Kenalog) 0.1 % creamIndications:D yshydrosis Apply topically if needed in the morning and at bedtime (pain and swelling). 30 g 5 024 Active Mounjaro 5 MG/0.5ML solution auto-injectorIndic ations:Type 2 diabetes mellitus with both eyes affected by mild nonproliferative retinopathy without macular edema, with long-term current use of insulin (CMS/HCC) INJECT FIVE MG SUBCUTANEOUSLY ONCE A WEEK 2 mL 2 025 Active FT Earwax Removal 6.5 % otic solutionIndication s:Impacted cerumen of right ear PLACE 5 TO 10 DROPS IN AFFECTED EAR(S) TWICE DAILY FOR FOUR DAYS 15 mL 1 025 Active Aspirin Adult Low Strength 81 MG EC tabletIndications: Benign essential hypertension TAKE ONE TABLET EVERY MORNING 90 tablet 1 025 Active cilostazol (Pletal) 100 MG tabletIndications: Peripheral arterial occlusive disease (CMS/HCC) TAKE ONE TABLET TWICE DAILY IN THE MORNING AND AT BEDTIME 30 MINUTES BEFORE A MEAL OR TWO HOURS BEFORE BREAKFAST AND SUPPER 60 tablet 025 Active lidocaine (Lidoderm) 5 % patchIndications:C hronic right shoulder pain,Pain in right shoulder APPLY 1 PATCH TO SKIN. LEAVE ON FOR 12 HOURS, THEN OFF FOR 12 HOURS DIRECTED. 30 patch 3 025 Active traMADol (Ultram) 50 MG tabletIndications: Chronic right shoulder pain,Pain in right shoulder,Back pain, unspecified back location, unspecified back pain laterality, unspecified chronicity TAKE ONE TABLET EVERY 8 HOURS 84 tablet 025 Active acetaminophen (Tylenol 8 Hour) 650 MG ER tabletIndications: Sore throat,Bacterial conjunctivitis,Chr onic pain syndrome TAKE TWO TABLETS BY MOUTH EVERY SIX HOURS NEEDED FOR PAIN DO NOT EXCEED SIX TABLETS PER DAY 40 tablet 1 025 Active gabapentin (Neurontin) 300 MG capsuleIndications :Complains of low back pain TAKE ONE CAPSULE EVERY MORNING and TAKE TWO CAPSULES EVERY DAY AT BEDTIME 90 capsule 5 025 Active gabapentin (Neurontin) 300 MG capsuleIndications :Complains of low back pain TAKE ONE CAPSULE EVERY MORNING and TAKE TWO CAPSULES EVERY DAY AT BEDTIME 90 capsule 5 024 07/08 Discontinued traMADol (Ultram) 50 MG tabletIndications: Chronic right shoulder pain,Pain in right shoulder,Back pain, unspecified back location, unspecified back pain laterality, unspecified chronicity TAKE ONE TABLET EVERY 8 HOURS 84 tablet 025 06/26 Discontinued acetaminophen (Tylenol 8 Hour) 650 MG ER tabletIndications: Sore throat,Bacterial conjunctivitis,Chr onic pain syndrome TAKE TWO TABLETS EVERY 6 HOURS NEEDED FOR PAIN, DO NOT EXCEED SIX TABLETS DAILY 40 tablet 1 025 07/08 Discontinued celecoxib (CeleBREX) 200 MG capsule Take 1 capsule (200 mg) by mouth 2 times daily for 5 days. 10 capsule 025 07/02 Active Problems Problem Noted Date Diagnosed Date Impacted cerumen of right ear 06/04/2024 Assessment & Plan (06/04/2024 2:56 PM EST): R ear cerumen impactation, attempt of removal in office no successful refer to ENT Diarrhea 06/04/2024 Assessment & Plan (06/05/2024 9:20 AM EST): Discussed BRAT diet. RTC if symptoms worsen Discussed precautions (cleaning hands and surfaces, etc) Major depressive disorder, r ecurrent, severe with psychotic features 07/04/2022 Assessment & Plan (10/30/2023 11:07 AM EDT): Prior history suicide attempts and hospitalizations. Still doing extremely well despite serious health conditions. Continue Risperidone 3 mg daily. He also takes Tramadol 50 mg TID prn and Gabapentin 600 mg TID for chronic back and shoulder pain. Gets regular POOL CLEANER follow up and has Narcan prescribed. Has been referred for counseling. Since this provider will be retiring, patient is now referred back to his PCP for further medication management. Any issues or concerns, contact the health center. All his questions were answered and I have wished him well. He agrees with the plan. Assessment & Plan (08/30/2023 2:47 PM EDT): Prior history suicide attempts and hospitalizations. Still doing extremely well despite serious health conditions. Only very rare hallucinations which are not bothersome. Continue Risperidone 3 mg daily. He also takes Tramadol 50 mg TID prn and Gabapentin 600 mg TID for chronic back and shoulder pain. Gets regular POOL CLEANER follow up and has Narcan prescribed. Will be referred again for counseling. On 04/03/2023 provider informed pt that I would be retiring, but we would make every effort to ensure smooth transition of care. Meanwhile, F/U with me in 2 months. He agrees with the plan. Assessment & Plan (07/03/2023 9:38 AM EST): Prior history suicide attempts and hospitalizations. Still doing extremely well despite serious health conditions. Only very rare hallucinations which are not bothersome. Continue Risperidone 3 mg daily. He also takes Tramadol 50 mg TID prn and Gabapentin 600 mg TID for chronic back and shoulder pain. Gets regular POOL CLEANER follow up and has Narcan prescribed. He has been referred for counseling and will be given the phone number so he can call to F/U. On 04/03/2023 provider informed pt that I would be retiring, but we would make every effort to ensure smooth transition of care. Meanwhile, F/U with me in 2 months. He agrees with the plan. Assessment & Plan (04/03/2023 9:20 AM EST): Prior history suicide attempts and hospitalizations. Still doing extremely well despite serious health conditions. Hallucinations controlled. Continue Risperidone 3 mg daily, consider very gradual dose decrease in consideration of increasing age and long-term stability He also takes Tramadol 50 mg TID prn and Gabapentin 600 mg TID for chronic back and shoulder pain. Gets regular POOL CLEANER follow up and has Narcan prescribed. He would be interested in counseling and referral will be made. Today 04/03/2023 provider informed pt that I would be retiring within the next year or so but we would make every effort to ensure smooth transition of care. F/U with me in 2-3 months. He agrees with the plan. Assessment & Plan (01/02/2023 9:41 AM EDT): Prior history suicide attempts and hospitalizations. Still doing extremely well. Hallucinations controlled. Continue Risperidone 3 mg daily, consider very gradual dose decrease in consideration of increasing age and long-term stability He also takes Tramadol 50 mg TID prn and Gabapentin 600 mg TID for chronic back and shoulder pain. Gets regular POOL CLEANER follow up and has Narcan prescribed. F/U with me in 3 months. He agrees with the plan. Assessment & Plan (10/02/2022 10:49 AM EDT): Prior history suicide attempts and hospitalizations. Still doing extremely well. Hallucinations controlled. Continue Risperidone 3 mg daily. He also takes Tramadol 50 mg TID prn and Gabapentin 600 mg TID for chronic back and shoulder pain. Gets regular POOL CLEANER follow up and has Narcan prescribed. F/U with me in 3 months. He agrees with the plan. Assessment & Plan (07/04/2022 11:42 AM EST): Prior history suicide attempts and hospitalizations. Still doing extremely well. Hallucinations controlled. Continue Risperidone 3 mg daily. F/U with me in 2-3 months. He agrees with the plan. Infestation by Sarcoptes scabiei reji hominis Asthma 04/14/2021 Stage 3a chronic kidney disease 02/13/2021 Complains of low back pain 09/21/2020 Benign essential hypertension 07/21/2020 Assessment & Plan (06/04/2024 2:54 PM EST): In the setting, of use of energy drinks. Recommended to NOT USE and followup with PCP Raised prostate specific antigen 07/21/2020 Coronary arteriosclerosis 06/07/2020 Hypertensive disorder 04/23/2017 Peripheral arterial occlusive disease 04/23/2017 Type 2 diabetes mellitus 04/23/2017 Erectile dysfunction 10/27/2011 Resolved Problems Problem Noted Date Diagnosed Date Resolved Date Depressive disorder 02/25/2010 07/04/19 23 Encounters Date Type Department Care Team Description 07/08/2024 Refill [facility] [address] [place] [address] Juan Miguel Tinajero MD Complains of low back pain 07/05/2024 Refill [facility] [address] [place] [address] Juan Miguel Tinajero MD Sore throat; Bacterial conjunctivitis; Chronic pain syndrome 06/27/2024 10:20 AM EST Office Visit [facility] [address] [place] [address] [id number] Name, MD Cameron Chronic low back pain with sciatica, sciatica laterality unspecified, unspecified back pain laterality (Primary Dx); Radicular pain of right lower extremity 06/27/2024 Telephone [facility] [address] [place] [address] Juan Miguel Tinajero MD Walk-In 06/26/2024 Refill [facility] [address] [place] [address] Juan Miguel Tinajero MD Chronic right shoulder pain; Pain in right shoulder; Back pain, unspecified back location, unspecified back pain laterality, unspecified chronicity 06/13/2024 Refill [facility] [address] [place] [address] Juan Miguel Tinajero MD Sore throat; Bacterial conjunctivitis; Chronic pain syndrome 06/12/2024 Telephone [facility] [address] [place] [address] [phone] Whit Amezcua MD 06/11/2024 9:00 AM EST Clinical Support [facility] [address] [place] [address] Elsa Barnett RN Chronic pain syndrome 06/11/2024 Telephone [facility] [address] [place] [address] Elsa Barnett, RN 06/11/2024 Travel 06/08/2024 Refill [facility] [address] [place] [address] Juan Miguel Tinajero MD Chronic right shoulder pain; Pain in right shoulder 06/06/2024 Refill [facility] [address] [place] [address] Juan Miguel Tinajero MD Peripheral arterial occlusive disease ([facility]) 06/04/2024 3:00 PM EST Office Visit [facility] [address] [place] [address] Whit Amezcua MD Benign essential hypertension (Primary Dx); Impacted cerumen of right ear; Diarrhea, unspecified type 06/04/2024 Travel 06/04/2024 Telephone [facility] [address] [place] [address] Nicole Lugo, JENS Walk-In (Ear discomfort) 06/04/2024 Telephone [facility] [address] [place] [address] Juan Miguel Tinajero MD Walk-In 06/04/2024 Refill [facility] [address] [place] [address] Juan Miguel Tinajero MD Benign essential hypertension 06/03/2024 Refill [facility] [address] [place] [address] Juan Miguel Tinajero MD Impacted cerumen of right ear 06/02/2024 Refill [facility] [address] [place] [address] Juan Miguel Tinajero MD Type 2 diabetes mellitus with both eyes affected by mild nonproliferative retinopathy without macular edema, with long-term current use of insulin ([facility]) 05/30/[address] [facility] [address] [place] [phone] Juan Miguel Tinajero MD Medication Question 05/29/2024 Telephone [facility] [address] [place] [address] Juan Miguel Tinajero MD Medication Question 05/29/2024 Refill [facility] [address] [place] [address] Juan Miguel Tinajero MD Chronic right shoulder pain; Pain in right shoulder; Back pain, unspecified back location, unspecified back pain laterality, unspecified chronicity 05/23/2024 9:30 AM EST Clinical Support [facility] [address] [place] [address] Trell Hubbard, JENS Impacted cerumen of right ear (Primary Dx); Encounter for immunization 05/23/2024 Travel 05/16/2024 Refill [facility] [address] [place], [place] [phone] Juan Miguel Tinajero MD Sore throat; Bacterial conjunctivitis; Chronic pain syndrome 05/15/2024 Telephone [facility] [address] [place] [address] Leana Huizar, RN Results 05/14/2024 10:00 AM EST Office Visit [facility] [address] [place] [address] Juan Miguel Tinajero MD Hypertension, unspecified type (Primary Dx); Type 2 diabetes mellitus with hyperglycemia, with long-term current use of insulin ([facility]); Other male erectile dysfunction; Impacted cerumen of right ear; Encounter for immunization; Dyshydrosis 05/14/2024 Travel 05/09/2024 Refill [facility] [address] [place] [address] Juan Miguel Tinajero MD Type 2 diabetes mellitus with diabetic peripheral angiopathy without gangrene, with long-term current use of insulin ([facility]) 05/07/2024 Patient Outreach [facility] [address] [place] [address] Juan Miguel Tinajero MD Pre-visit Planning ([facility] unable to reach [facility]) 04/28/2024 Refill [facility] [address] [place] [address] Juan Miguel Tinajero MD Chronic right shoulder pain; Pain in right shoulder; Back pain, unspecified back location, unspecified back pain laterality, unspecified chronicity; Sore throat; Bacterial conjunctivitis; Chronic pain syndrome from Last 3 Months Immunizations Name Administration Dates Next Due Hep B, adult 05/23/2024,08/21/2022,07/24/2022 Influenza Injectable Quadriv alant Preservative Free IIV4 MDCK 04/14/2021 Influenza injectable quadriv alent IIV4 with preservative 04/23/2017,02/17/2016 Influenza injectable quadriv alent preservative free 03/13/2023,02/22/2022,03/31/2020 Influenza, IIV3, injectable 02/23/2014 Influenza, seasonal, injecta ble, preservative free 05/14/2024 Moderna Covid-19 Vaccine 12+ 05/03/2021,09/28/19 21,08/30/2020 Pfizer Covid-19 Vaccine 12+ 05/14/2024, 3 Pfizer Covid-19 Vaccine 12+ Bivalent 02/28/2022 Pneumococcal Conjugate PCV 20 07/31/2023 Pneumococcal Polysaccharide PPSV23 12/10/2015 Tdap 05/23/2024,01/21/2014 Zoster, Recombinant 06/22/2020,04/01/2020 Family History Medical History Relation Name Comments Diabetes Father Liver disease Mother Relation Name Status Comments Father Mother Social History Tobacco Use Types Packs/Day Years [...] not to disclose 2021 10:21 AM EDT Last Filed Vital Signs Vital Sign Reading Time Taken Comments Blood Pressure 145/90 06/27/2024 10:18 AM EST Pulse 79 06/27/2024 10:18 AM EST Temperature 36.6 ??C (97.8 ??F) 06/27/2024 10:[address] Respiratory Rate 17 06/27/2024 10:18 AM EST Oxygen Saturation 99% 06/04/2024 2:45 PM EST Inhaled Oxygen Concentration - - Weight 86.7 kg (191 lb 3.2 oz) 06/27/2024 10:18 AM EST Height 162.6 cm (5' 4 ) 06/27/2024 10:18 AM EST Body Mass Index 32.82 06/27/2024 10:18 AM EST Plan of Treatment Upcoming Encounters Date Type Department Care Team (Late st Contact Info) Description 09/09/2024 9:00 AM EDT Clinical Support [facility] [address] [place] [address] Elsa Barnett, RN [address] [place] [address] Health Maintenance Due Date Last Done Comments CT Colonography 1960 Dental Oral Exam 1960 Dental Prophylaxis 1960 Dental X-Ray: Bitewings 1960 Dental X-Ray: Full Mouth 1960 FIT DNA/Cologuard 1960 FIT 1960 FOBT 1960 HIV Screening 1960 Sigmoidoscopy 1960 Alcohol/Substance Use Screening 1972 Hepatitis C Screening 1978 Diabetes: Urine Protein Screening 1979 RSV Patients and Patients Aged 60 years or older (1 - Risk 60-74 years 1-dose series) 2020 SDOH Screening 08/30/2023 08/29/2022 Colonoscopy 10/06/2023 10/05/2022, 08/16/2021 Colorectal Cancer Screening 10/06/2023 Eye Exam 03/19/2024 03/19/2023, 02/26, 03/19/2023, Additional history exists Diabetes: Hemoglobin A1C 08/12/2024 024, 11/01/2023, 06/12/2023, Additional history exists Depression Screening 10/29/2024 10/30/2023, 10/30/19 Diabetes: Foot Exam 05/14/2025 05/14/2024, 03/13/2023, 03/13/2023, Additional history exists Lipid Panel 05/14/2025 05/14/2024, 07/27/2022 Tobacco Screening 06/27/2025 06/27/2024 DTaP/Tdap/Td Vaccines (3 - Td or Tdap) 05/23/2034 05/23/2024, 01/21/2014 Zoster Vaccines Completed 06/22/2020, 04/01/2020 Pneumococcal Vaccine: 50+ Years Completed 07/31/2023, 12/10/2015 COVID-19 Vaccine Completed 05/14/2024, , 02/28/2022, Additional history exists Influenza Vaccine Completed 05/14/2024, , 02/22/2022, Additional history exists Hepatitis B Vaccines Completed 05/23/2024, 08/21/2022, 07/24/2022 HIB Vaccines Aged Out No longer eligi ble based on patient's age to complete this topic HPV Vaccines Aged Out No longer eligi ble based on patient's age to complete this topic Hepatitis A Vaccines Aged Out No long er eligible based on patient's age to complete this topic IPV Vaccines Aged Out No longer eligi ble based on patient's age to complete this topic Meningococcal Vaccine Aged Out No carlita desmond eligible based on patient's age to complete this topic RSV under 20 months Aged Out No longe r eligible based on patient's age to complete this topic Rotavirus Vaccines Aged Out No longer eligible based on patient's age to complete this topic Goals Goal Patient Goal Type Associated Problems Recent Progress Patient-Stated? Author Blood Pressure < 140/90 Blood Pressure 145/90(2024 10:18 AM EST) No Juan Cordova, PharmD Hemoglobin A1c < 7 Result Component 6.4( 9:31 AM EST) No Dellogbibi, Juan, PharmConstantin Procedures Procedure Name Priority Date/Time Associated Diagnosis Comments POCT URINALYSIS DIPSTICK Routine 06/27/2024 10:38 AM EST Chronic low back pain with sciatica, sciatica laterality unspecified, unspecified back pain laterality Radicular pain of right lower extremity POCT RACHEL-14 URINE DRUG SCREEN Routine 06/11/2024 9:02 AM EST Chronic pain syndrome [place] REMOVAL IMPACTED CERUMEN IRRIGATION/LVG UNILAT Routine 05/23/2024 11:10 AM EST Impacted cerumen of right ear TSH W/REFLEX TO FT4 Routine 05/14/2024 1 0:41 AM EST Type 2 diabetes mellitus with hyperglycemia, with long-term current use of insulin (CMS/HCC) LIPID PANEL, STANDARD Routine 05/14/2024 10:41 AM EST Type 2 diabetes mellitus with hyperglycemia, with long-term current use of insulin (CMS/HCC) COMPREHENSIVE METABOLIC PANEL Routine 05/14/2024 10:41 AM EST Type 2 diabetes mellitus with hyperglycemia, with long-term current use of insulin (CMS/HCC) CBC WITH AUTO DIFFERENTIAL Routine 05/14/2024 10:41 AM EST Type 2 diabetes mellitus with hyperglycemia, with long-term current use of insulin (CMS/HCC) POCT GLYCATED HEMOGLOBIN, TOTAL Routine 05/14/2024 9:31 AM EST Type 2 diabetes mellitus with hyperglycemia, with long-term current use of insulin (CMS/HCC) POCT GLUCOSE Routine 05/14/2024 9:30 AM EST Type 2 diabetes mellitus with hyperglycemia, with long-term current use of insulin (CMS/HCC) COLONOSCOPY Routine 10/05/2022 from Last 3 Months or Most Recently Relevant to Health Maintenance Results * (ABNORMAL) POCT urinalysis dipstick manually [...] CARE TEST ENTER/EDIT OR DERABLES Final Result * POCT RACHEL-14 Urine Drug Screen (06/11/2024 9:02 AM EST) Urine Urine specimen obtained by clean catch procedure / Unknown 06/11/2024 9:02 AM EST Narrative Elsa Barnett RN - 06/11/2024 9:02 AM EST Lot# [id number] Exp: 05-03-25 Juan Miguel Tinajero MD POINT OF CARE TEST ENTER/ED IT ORDERABLES Final Result * [place] REMOVAL IMPACTED CERUMEN IRRIGATION/LVG UNILAT (05/23/2024 11:10 AM EST) Narrative Trell Hubbard RN - 05/23/2024 11:10 AM EST Trell Hubbard RN ? 05/23/2024 11:30 AM Ear Cerumen Removal Date/Time: 05/23/2024 11:10 AM Performed by: Trell Hubbard RN Authorized by: Juan Miguel Tinajero MD ?? Consent: ??Consent obtained: ??Verbal ??Consent given by: ??Patient ??Risks, benefits, and alternatives were discussed: yes ?Risks discussed: ??Pain, dizziness and incomplete removal ??Alternatives discussed: ??Observation [place] protocol: ??Procedure explained and questions answered to patient or proxy's satisfaction: yes ?Patient identity confirmed: ??Verbally with patient Procedure details: ??Location: ??R ear ??Procedure type: irrigation ?Procedure outcomes: unable to remove cerumen ?? Post-procedure details: ??Inspection: ??Some cerumen remaining ??Hearing quality: ??Improved ??Procedure completion: ??Tolerated Comments: ?? S: Pt is here for right ear irrigation, ??f/u on hand rash, and immunizations. Pt report using triamcinolone cream and debrox that was prescribed at last visit. Pt report that hand rash has improved, not as itchy as before. Pt report that at last visit he received the flu and covid vaccine and is requesting to receive the other 2 vaccines that he is due for today which are hep b # 3 and Tdap. O: Pt denies any pain from right ear just some difficulty in hearing. RN inspected right ear post procedure which continues to be impacted with cerumen. RN completed right ear irrigation, pt tolerated procedure well. Some cerumen removed but did not continue procedure due to irritation noted inside ear. Pt reported some improvement in hearing. Hep b and Tdap vaccine administered to pt, tolerated well. A: Right ear irrigation due to Impacted cerumen of right ear. P: RN advised to finish using the debrox. Recommended to not use q-tips to clean ear. Advised to f/u PRN. Pt verbalized understanding and agreed to plan. Juan Miguel Tinajero MD IN CLINIC/BEDSIDE ORDERABLE S Final Result * TSH W/Reflex to FT4 (05/14/2024 10:41 AM EST) TSH reflex Free T4 0.63 0.32 - 4.0 uIU/mL [facility] Blood Venous blood specimen / Unknown 05/14/2024 10:41 AM EST 05/14/2024 2:06 PM EST us Juan Miguel Tinajero MD LAB BLOOD ORDERABLES Final Result [facility] [address] [place] [address] [phone] * (ABNORMAL) CBC auto differential (05/14/2024 10:41 AM EST) White Blood Count 6.5 4.8 - 10.8 X10*3/uL [facility] Red Blood Count 4.58(L) 4.60 - 5.80 X10*6/uL [facility] Hemoglobin 12.7(L) 14.0 - 18.0 g/dl [facility] Hematocrit 38.2(L) 42.0 - 52.0 % [facility] Mean Corpuscular Volume 83.4 80.0 - 98.0 fL [facility] Mean Corpuscular Hemoglobin 27.7 27.0 - 33.0 pg [facility] Mean Corpuscular HGB Conc 33.2 31.0 - 36.0 g/dl [facility] Red Cell Distribution Width 15.7 11.0 - 16.0 % [facility] Platelet Count 191 160 - 400 X10*3/uL [facility] Mean Platelet Volume 10.7 9.4 - 12.4 fL [facility] Neutrophils Percent Auto 60.8 45 - 73 % [facility] Imm Gran Pct Auto 0.2 0.0 - 0.4 % [facility] Lymphocytes Percent Auto 26.9 20 - 40 % [facility] Monocytes Percent Auto 7.7 2 - 11 % [facility] Eosinophils Percent Auto 4.1(H) 0 - 4 % [facility] Basophils Percent Auto 0.3 0 - 2 % [facility] NRBC Pct Auto 0.0 0.0 - 0.2 /100WBC [facility] Neutrophils Absolute Auto 4.0 2.0 - 8.3 x10*3/uL [facility] Imm Gran Abs Auto 0.01 0.00 - 0.03 X10*3/uL [facility] Lymphocytes Absolute Auto 1.8 1.2 - 4.9 X10*3/uL [facility] Monocytes Absolute Auto 0.5 0.1 - 1.2 X10*3/uL [facility] Eosinophils Absolute Auto 0.3 0.0 - 0.4 X10*3/uL [facility] Basophils Absolute Auto 0.0 0.0 - 0.2 X10*3/uL [facility] NRBC Abs Auto 0.000 0.0 - 0.012 X10*3/uL [facility] Blood Venous blood specimen / Unknown 05/14/2024 10:41 AM EST 05/14/2024 2:06 PM EST us Juan Miguel Tinajero MD LAB BLOOD ORDERABLES Final Result Performing Organization Address City/[facility]/ZIP Co de Phone Number [facility] [address] [place] [phone] * Lipid Panel, Standard (05/14/2024 10:41 AM EST) Triglycerides 71 <150 mg/dL [facility] Comment:Desirable Triglyceri de: less than 150 mg/dLBorderline High Triglyceride 150-199 mg/dLHigh Triglyceride: 200-499 mg/dLVery High Triglyceride: greater than or equal to 5OO mg/dL Cholesterol 122 <200 mg/dL [facility] Comment:Desirable Cholestero l: less than 200 mg/dLBorderline High Cholesterol: 200-239 mg/dLHigh Cholesterol: greater than 239 mg/dL LDL Cholesterol Calculated 64 <100 mg/dL [facility] Comment:Desirable LDL: less than 100 mg/dLNear Optimal/Above Optimal LDL: 110- 129 mg/dLBorderline High LDL: 130-159 mg/dLHigh LDL: 160-189 mg/dLVery High LDL: greater than or equal to 190 mg/dL HDL Cholesterol 44 >40 mg/dL [facility] Comment:Desirable HDL: great er than 40 mg/dL Note: This HDL assay may give artificially low results in patients with liver disease. Blood Venous blood specimen / Unknown 05/14/2024 10:41 AM EST 05/14/2024 2:06 PM EST us Juan Miguel Tinajero MD LAB BLOOD ORDERABLES Final Result [facility] [address] [place] [phone] * (ABNORMAL) Comprehensive Metabolic Panel (05/14/2024 10:41 AM EST) Sodium 141 135 - 145 mmol/L [facility] Potassium 3.8 3.3 - 5.1 mmol/L [facility] Chloride 110(H) 96 - 108 mmol/L [facility] Carbon Dioxide 26 22 - 29 mmol/L [facility] Anion Gap 9(L) 12 - 20 [facility] Urea Nitrogen (BUN) 15 9 - 16 mg/dL [facility] Creatinine, Serum 1.05 0.5 - 1.4 mg/dL [facility] Estimated Glomerular Filt Rate >60 [facility] Comment:Chronic Kidney Disea se: Estimated GFR < 60 mL/min/1.33x6Kybkhq Kidney Disease: Estimated GFR < 15 mL/min/1.73m2 Glucose 130(H) 60 - 115 mg/dL [facility] Calcium 8.3(L) 8.4 - 10.2 mg/dL [facility] Bilirubin, Total 0.4 0.0 - 1.0 mg/dL [facility] Aspartate Amino Transferase 24 5 - 37 U/L [facility] Alanine Aminotransferase 20 0 - 40 U/L [facility] Total Protein 7.4 6.5 - 8.0 g/dL [facility] Albumin Level 4.1 3.5 - 5.0 g/dL [facility] Alkaline Phosphatase 73 39 - 117 U/L [facility] Blood Venous blood specimen / Unknown 05/14/2024 10:41 AM EST 05/14/2024 2:06 PM EST us Juan Miguel Tinajero MD LAB BLOOD ORDERABLES Final Result [facility] [address] [place] [phone] * (ABNORMAL) POCT A1C (05/14/2024 9:31 AM EST) Hemoglobin A1C 6.4(A) 4.0 - 6.0 % QC Media Lot # Comment:[id number] Lot# Expiration Date Comment:12/26/2025 Blood 05/14/2024 9:31 AM EST us Juan Miguel Tinajero MD POINT OF CARE TEST ENTER/ED IT ORDERABLES Final Result * (ABNORMAL) POCT glucose manually resulted (05/14/2024 9:30 AM EST) Glucose Blood, POC 194 60 - 200 mg/dL [employer] Lot # Comment:[id number] Lot# Expiration Date Comment:09/02/2024 Blood Capillary blood specimen / Unknown 05/14/2024 9:30 AM EST Juan Miguel Tinajero MD POINT OF CARE TEST ENTER/ED IT ORDERABLES Final Result * (ABNORMAL) Colonoscopy (10/05/2022) Anatomical Region Laterality Modality Endoscopy Narrative 10/05/2022 Poor prep johnathon right side internal hemorrhoids. Historical Provider ENDOSCOPY PROCEDURE ORDER XANDER Final Result from Last 3 Months or Most Recently Relevant to Health Maintenance Insurance [facility] ST[facility] ADULT Care Teams Utility Spray Operator Relationship Specialty Start Date End Date Juan Miguel Tinajero MD [address] [facility] [place] [address] PCP - General Internal Medicine 05/28/18 Juan Cordova, PharmD [address] [facility] [place] [address] Pharmacist Internal Medicine 07/14/22 Yvonne Knox Attendant Honor BarAutomotive Glazier 02/15/23 Yvonne Knox Attendant [employer] Glazier 04/09/24
--- OUTSIDE RECORDS SUMMARY | 2024-07-21 10:36 | XMS_ITS | Clinical Summary ---
Author Organization [facility] ity Address [address] [place] [address] Care Team Providers Care Gearman Name Role Phone Unavailable Primary Care Provider Unavailabl e Social History Tobacco Use Types Packs/Day Years Used Date Smoking Tobacco: Former Cigarettes Q uit: 02/11/2020 Smokeless Tobacco: Never Alcohol Use Standard Drinks/Week Comments No 0 (1 standard drink = 0.6 oz pur e alcohol) Sex and Gender Information Value Date Recorded Sex Assigned at Not on file Legal Sex Male 10:18 AM EST Gender Identity Not on file Sexual Orientation Not on file Obstetrics History Plan of Treatment Health Maintenance Due Date Last Done Comments DTaP,Tdap,and Td Vaccines (1 - Tdap) 1979 Pneumococcal Vaccine: 50+ Ye ars (1 of 1 - PCV) 2010 Zoster Vaccines (1 of 2) 2010 COVID-19 Vaccine ( - 2023-2 5 season) 2024 Influenza Vaccine (#1) 2024 RSV Immunization Patients 60 + Years Old (1 - 1-dose 75+ series) 2035 HIB Vaccines Aged Out No longer eligi ble based on patient's age to complete this topic HPV Vaccines Aged Out No longer eligi ble based on patient's age to complete this topic Hepatitis A Vaccines Aged Out No long er eligible based on patient's age to complete this topic Hepatitis B Vaccines Aged Out No long er eligible based on patient's age to complete this topic IPV Vaccines Aged Out No longer eligi ble based on patient's age to complete this topic MMR Vaccines Aged Out No longer eligi ble based on patient's age to complete this topic Meningococcal ACWY Vaccine Aged Out N o longer eligible based on patient's age to complete this topic Meningococcal B Vacine Aged Out No lo nger eligible based on patient's age to complete this topic Pneumococcal Vaccine: Pediat rics (0 to 5 Years) and At-Risk Patients (6 to 64 Years) Aged Out No longer eligible b ased on patient's age to complete this topic RSV Immunization Patients Un emma 20 months Aged Out No longer eligible b ased on patient's age to complete this topic Varicella Vaccines Aged Out No longer eligible based on patient's age to complete this topic
--- OUTSIDE RECORDS SUMMARY | 2024-07-21 10:36 | XMS_ITS | Encounter Summary ---
Author Organization [employer] Address [address] [facility] [address] [place] [address] Care Team Providers Care Cert Pharmacy Tech Name Role Phone Juan Miguel Tinajero MD Primary Care Provider [phone] Juan Cordova PharmD Unavailable Unavail able Encounter Details Date Type Department Care Team ([facility] st Contact Info) Description 11/09/2023 Orders Only [facility] [address] [place], [place] [phone] Juan Miguel Tinajero MD [address] [place] [address] Social History Tobacco Use Types Packs/Day Years [...] enough money to get more: Never True 10/ Transportation Answer Date Recorded In the past [...] Description 09/09/2024 9:00 AM EDT Clinical Support [facility] [address] [place] [address] Elsa Barnett RN [address] [place] [address] documented as of this encounter Goals Goal [...] documented as of this encounter Care Teams Cert Pharmacy Tech Relationship Specialty Start Date End Date Juan Miguel Tinajero MD [address] [place] [address] PCP - General Internal Medicine 05/28/18 Juan Cordova, PharmD [address] [place] [address] Pharmacist Internal Medicine 07/14/22 Yvonne Knox GiverCraft Manager 02/15/23 Yvonne Knox GiverCraft Manager 04/09/24 documented as of this encounter
--- OUTSIDE RECORDS SUMMARY | 2024-07-21 10:36 | XMS_ITS | Clinical Summary ---
Author Organization [facility] Address [address] [facility] [address] [place] [address] Phone Care Team Providers Care Drywall Finishing Foreman Name Role Phone Juan Miguel Tinajero MD Primary Care Provider [phone] Allergies No known active allergies Medications Acetaminophen Extra Strength 500 MG tablet if needed 1 Active Alcohol Swabs (SM Alcohol Prep) 70 % pads USE ONCE DAILY 1 Active amLODIPine (NORVASC) 10 MG tablet Take 10 mg by mouth every morning 1 Active Aspirin Low Dose 81 MG EC tablet Take 81 mg by mouth every morning 1 Active atorvastatin (LIPITOR) 80 MG tablet 80 mg every night 1 Active cilostazol (PLETAL) 100 MG tablet TAKE ONE TABLET BY MOUTH TWICE DAILY IN THE MORNING AND AT BEDTIME 30 MINUTES BEFORE OR TWO HOURS AFTER BREAKFAST AND SUPPER. 1 Active glucose 4 g chewable tablet TAKE TWO TABLETS BY MOUTH DIRECTED. 1 Active gabapentin (NEURONTIN) 300 MG capsule TAKE ONE CAPSULE EVERY MORNING and TAKE TWO CAPSULES EVERY DAY AT BEDTIME 1 Active Lantus SoloStar 100 UNIT/ML injection 40 Units 1 (one) time each day 35 units 1 Active pantoprazole (PROTONIX) 20 MG EC tablet Take 20 mg by mouth every morning 1 Active risperiDONE (RisperDAL) 3 MG tablet Take 3 mg by mouth at bed time 1 Active traMADol (ULTRAM) 50 MG tablet TAKE ONE TABLET BY MOUTH THREE TIMES DAILY NEEDED. 1 Active DULCOLAX 5 MG EC tablet TAKE TWO TABLETS EVERY NIGHT AT BEDTIME 4 Active docusate sodium (COLACE) 100 MG capsule Take 100 mg by mouth in the morning. Active famotidine (PEPCID) 20 MG tablet Take 20 mg by mouth 1 (one) time each day Active Tirzepatide (Mounjaro) 5 MG/0.5ML solution pen-injector Inject under the skin Once a week Active carvedilol (COREG) 12.5 MG tablet Take 1 tablet (12.5 mg total) by mouth in the morning and 1 tablet (12.5 mg total) in the evening. Take with meals. 180 tablet 3 4 10/02/19 25 Active cholecalciferol (VITAMIN D-3) 50 MCG (1999 UT) capsule TAKE ONE CAPSULE EVERY MORNING 90 capsule 3 4 Active Active Problems Problem Noted Date Diagnosed Date Diabetes mellitus, not otherwise specified 09/25 Severe recurrent major depression with psychotic features 07/04/2022 03/28/2023 Overview (03/28/2023): Last Assessment & Plan: Prior history suicide attempts and hospitalizations. Still doing extremely well. Hallucinations controlled. Continue Risperidone 3 mg daily, consider very gradual dose decrease in consideration of increasing age and long-term stability He also takes Tramadol 50 mg TID prn and Gabapentin 600 mg TID for chronic back and shoulder pain. 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 F/U with me in 3 months. He agrees with the plan. Multi vessel coronary artery disease 07/06/2021 Asthma 04/14/2021 03/28/2023 Stage 3a chronic kidney disease 02/13/2021 Cyst of kidney 02/13/2021 Nephrolithiasis 02/13/2021 Acute nontraumatic kidney injury 02/11/2021 Benign essential hypertension 07/21/2020 Hypertensive disorder 04/23/2017 03/28/2023 Peripheral arterial occlusive disease 04/23/2017 03/28/2023 Erectile dysfunction 10/27/2011 03/28/2023 Resolved Problems Problem Noted Date Diagnosed Date Resolved Date Infestation by Sarcoptes scabiei reji hominis 2 03/28/2023 09/26/2023 Diarrhea 02/13/2021 01/10/2022 Chronic kidney disease 02/11/202102/13 Elevated prostate specific antigen (PSA) 02/11/2021 02/13/2021 Low back pain 09/21/2020 03/28/2023 09/26/2023 Postoperative wound infection 10/23/2018 01/10/2022 Skin tag 10/23/2018 01/10/2022 Closed fracture of multiple ribs 10/02/2018 01/10/2022 Shoulder pain 08/02/2018 01/10/2022 Deltoid tendinitis 05/30/2018 Type 2 diabetes mellitus 04/23/2017 03/28/202305/2023 Immunizations Name Administration Dates Next Due Hepatitis B 08/21/2022,07/24/2022 Influenza, MDCK, PF, Quadrivalent 04/14/2021 Influenza, Quadrivalent, Preservative Free 03/13,02/22/2022,03/31/2020 Influenza, Quadrivalent, With Preservative 04/23,02/17/2016 Influenza, Unspecified 02/23/2014 Moderna SARS-COV-2 05/03/2021,09/27/2020, 021 Pfizer SARS-COV-2 03/19/2023,02/28/2022 Pneumococcal Polysaccharide 12/10/2015 Shingrix 06/22/2020,04/01/2020 Tdap 01/21/2014 Family History Medical History Relation Comments Cancer Father Stroke Father's Sister Relation Status Comments Father Father's Sister Social History Tobacco Use Types Packs/Day Years Used Date Smoking Tobacco: Former Cigarettes Q uit: 2015 Smokeless Tobacco: Never Tobacco Cessation:Counseling Given: Not Answered Alcohol Use Standard Drinks/Week Comments Never 0 (1 standard drink = 0.6 oz pur e alcohol) Sex and Gender Information Value Date Recorded Sex Assigned at Not on file Legal Sex Male 10:12 AM EDT Gender Identity Not on file Sexual Orientation Not on file Last Filed Vital Signs Vital Sign Reading Time Taken Comments Blood Pressure 155/71 04/01/2024 7:54 AM EST Pulse 78 04/01/2024 7:54 AM EST Temperature - - Respiratory Rate - - Oxygen Saturation 98% 04/01/2024 7:54 AM EST Inhaled Oxygen Concentration - - Weight 87.5 kg (193 lb) 04/01/2024 7:54 AM EST Height 162.6 cm (5' 4 ) 04/01/2024 7:54 AM EST Body Mass Index 33.13 04/01/2024 7:54 AM EST Plan of Treatment Upcoming Encounters Date Type Department Care Team (Late st Contact Info) Description 09/25/2024 8:00 AM EDT Office Visit [facility] [address] [phone] Aj Grajeda MD [address] [phone] Health Maintenance Due Date Last Done Comments Colorectal Cancer Screening: Annual FOBT 2009 Colorectal Cancer Screening: Colonoscopy 2009 Colorectal Cancer Screening: Sigmoidoscopy 2009 Diabetes: Ophthalmology Exam 03/28/2023 Diabetes: Pedal Pulse Checked 03/28/2023 Diabetes: Sensory Foot Exam 03/28/2023 Diabetes: Visual Foot Exam 03/28/2023 Influenza Vaccine (#1) 2024 3, 02/22/2022, 04/14/2021, Additional history exists Diabetes: Hemoglobin A1C 02/01/2024 024, 03/21/2023, 03/13/2023, Additional history exists Hepatitis B Vaccine Aged Out 08/21/2022, 3 No longer eligible based on patient's age to complete this topic Pneumococcal Vaccine: Pediatrics (0 to 5 Years) and At-Risk Patients (6 to 64 Years) Completed 07/31/2023, 12/10/2015 Procedures Procedure Name Priority Date/Time Associated Diagnosis Comments HEMOGLOBIN A1C Routine 03/21/2023 8:20 AM EDT Acute injury of kidney (HCC) Stage 3a chronic kidney disease (HCC) Cyst of kidney Nephrolithiasis Multi vessel coronary artery disease from Last 3 Months or Most Recently Relevant to Health Maintenance Results * (ABNORMAL) Hemoglobin A1c (03/21/2023 8:20 AM EDT) Hemoglobin A1C 6.6(H) (4.0-5.6) % [facility] Comment: MONITORING: In known diabetic patients, hemoglobin A1c targets should be discussed with health care provider. DIAGNOSTIC USE: ??The [place] Diabetes Association (ADA) and the World Health Organization (WHO) recommend the use of HbA1c to diagnose diabetes using a threshold of 6.5%. Patients who have an HbA1c between 5.7% and 6.4% are considered at increased risk for developing diabetes in the future. CAUTION: Falsely low HbA1c results may be observed in patients with hemolytic anemia, homozygous forms of abnormal hemoglobin (e.g. SS, CC, SC), , recent blood loss or hemoglobin F greater than 7%. Fructosamine may be used as an alternate test in these cases. REFERENCE: ADA: Standards of Medical Care in Diabetes 2020, The Journal of Clinical and Applied Research and Education Volume 43, Supplement 1 Testing performed or reported by [facility], a Service of [facility], [address] [place] [address] Zachary Sanders MD, Counter Top Maker [facility]# [id number] Blood (Blood, Venous) 03/21/2023 8:20 AM EDT 03/21/2023 8:25 AM EDT us Aj Grajeda MD LAB BLOOD ORDERABLES Final Re sult [facility] from Last 3 Months or Most Recently Relevant to Health Maintenance [place] Care Teams Drywall Finishing Foreman Relationship Specialty Start Date End Date Juan Miguel Tinajero MD [address] [place] [phone] PCP - General Internal Medicine 02/11/21
--- OUTSIDE RECORDS SUMMARY | 2024-07-21 10:36 | XMS_ITS | Encounter Summary ---
Author Organization [employer] Address [address] [facility] [address] [place] [address] Care Team Providers Care Candy Roller Name Role Phone Juan Miguel Tinajero MD Primary Care Provider [phone]- [phone] Juan Cordova PharmD Unavailable Unavail able Reason for Visit * Reason Comments Med Refill Encounter Details Date Type Department Care Team (Late Contact Info) Description 08/19/2022 Refill [facility] [address] [place], [place] [phone] Juan Miguel Tinajero MD [address] [place] [address] Seasonal allergic rhinitis due to other allergic trigger Social History Tobacco Use Types Packs/Day Years [...] suspected to have Coronavirus/COVID-19? No / Unsure 08/21/2022 9:02 AM EDT documented as of this encounter Plan of Treatment Upcoming Encounters Date Type Department Care Team ([facility] Contact Info) Description 09/09/2024 9:00 AM EDT Clinical Support [facility] [address] [place] [address] Elsa Barnett, JENS [address] [place] [address] documented as of this encounter Goals Goal Patient Goal Type Associated Problems Recent Progress Patient-Stated? Author Hemoglobin A1c < 7 Result Component 6.4(05/14/2024 9:31 AM EST) No Juan Cordova, PharmD documented as of this encounter Visit Diagnoses Diagnosis Seasonal allergic rhinitis due to other allergic trigger documented in this encounter Additional Health Concerns Assessment Noted Time PHQ-9 Depression Total Score: 4 07/04/19 23 10:02 AM EST documented as of this encounter Care Teams Candy Roller Relationship Specialty Start Date End Date Juan Miguel Tinajero MD [address] [place] [address] PCP - General Internal Medicine 05/28/18 Juan Cordova, PharmD [address] [place] [address] Pharmacist Internal Medicine 07/14/22 Yvonne Knox Bilingual Account ManagerFreight Car Builder 02/15/23 Yvonne Knox Bilingual Account ManagerFreight Car Builder 04/09/24 documented as of this encounter
--- OUTSIDE RECORDS SUMMARY | 2024-07-21 10:36 | XMS_ITS | Encounter Summary ---
Author Organization [employer] Address 75 [facility] 7t [place] [address] Care Team Providers Care Car Worker Name Role Phone Juan Miguel Tinajero MD Primary Care Provider [phone] Juan Cordova PharmD Unavailable Unavail able Reason for Visit * Reason Comments Med Refill Encounter Details Date Type Department Care Team ([facility] Contact Info) Description 10/31/2023 Refill [facility] CHC MED & PEDS [address] [place], [place] [phone] Juan Miguel Tinajero MD [address] [place] [address] Sore throat; Bacterial conjunctivitis; Chronic pain syndrome [...] Description 09/09/2024 9:00 AM EDT Clinical Support [facility] & PEDS [address] [place] [address] Elsa Barnett RN 505 [place] [address] documented as of this encounter Goals Goal Patient Goal Type Associated Problems Recent Progress Patient-Stated? Author Blood Pressure < 140/90 Blood Pressure 145/90(2024 10:18 AM EST) No Dellogono, Juan, PharmD Hemoglobin A1c < 7 Result Component 6.4( 9:31 AM EST) No Dellogono Juan, PharmD documented as of this encounter Visit Diagnoses Diagnosis Sore throat Acute pharyngitis Bacterial conjunctivitis Other mucopurulent conjunctivitis Chronic pain syndrome documented in this encounter Additional Health Concerns Assessment Noted Time PHQ-9 Depression Total Score: 0 10/30/19 24 10:10 AM EDT documented as of this encounter Care Teams Car Worker Relationship Specialty Start Date End Date Juan Miguel Tinajero MD [address] [place] [address] PCP - General Internal Medicine 05/28/18 JefeJuan delgado, PharmD [address] [place] [address] Pharmacist Internal Medicine 07/14/22 Yvonne Knox Electrical Engineering DirectorExhibitions And Collections Manager 02/15/23 Yvonne Knox Electrical Engineering DirectorExhibitions And Collections Manager 04/09/24 documented as of this encounter
--- OUTSIDE RECORDS SUMMARY | 2024-07-21 10:36 | XMS_ITS | Encounter Summary ---
Author Organization [employer] Address 75 [facility] 7t [place] [address] Care Team Providers Care Front End Web Developer Name Role Phone Juan Miguel Tinajero MD Primary Care Provider [phone] [phone] Juan Cordova PharmD Unavailable Unavail able Reason for Visit * Reason Comments Med Refill Encounter Details Date Type Department Care Team ([facility] st Contact Info) Description 09/21/2023 Refill [facility] CHC MED & PEDS [address] [place], [place] [phone] Juan Miguel Tinajero MD [address] [place] [address] Chronic right shoulder pain; Pain in right [...] Upcoming Encounters Date Type Department Care Team ([facility] st Contact Info) Description 09/09/2024 9:00 AM EDT Clinical Support [facility] MED & PEDS [address] [place] [address] Elsa Barnett RN 505 [place] [address] documented as of this encounter Goals Goal [...] documented as of this encounter Care Teams Front End Web Developer Relationship Specialty Start Date End Date Juan Miguel Tinajero MD [address] [place] [address] PCP - General Internal Medicine 05/28/18 Juan Cordova, EbonieD [address] [place] [address] Pharmacist Internal Medicine 07/14/22 Yvonne Knox [employer]ending Enterprises SupervisorWildlife Photographer 02/15/23 Yvonne Knox [employer] SupervisorWildlife Photographer 04/09/24 documented as of this encounter
--- OUTSIDE RECORDS SUMMARY | 2024-07-21 10:36 | XMS_ITS | Encounter Summary ---
Author Organization [employer] Address 75 [facility] 7t [place] [address] Care Team Providers Care Thread Winder Automatic Name Role Phone Juan Miguel Tinajero MD Primary Care Provider +1 [phone] Juan Cordova PharmD Unavailable Unavail able Reason for Visit * Reason Onset Date Comments Pre-op Visit 01/07/2024 Encounter Details Date Type Department Care Team ([facility] st Contact Info) Description 01/07/2024 Telephone [facility] MEDICINE [address] [place] [address] Juan Miguel Tinajero MD 505 [place] [address] Pre-op Visit Social History Tobacco Use Types Packs/Day Years [...] encounter Miscellaneous Notes * Telephone Encounter - Chantell Dalal - 01/07/2024 2:14 PM EDT Outgoing call to [place] at [facility] calling to inform pt agreed to come in on 01/18/24 at 10AM with [place] for pre op appointment. Appointment reminder letter mailed * Telephone Encounter - Tsering Pastrana - 01/07/2024 10:20 AM EDT Date of Surgery: 01/29 Surgical procedure being done: Right shoulder arthroscopy with possible RTC Type of anesthesia: General with nerve block Lab needed: Yes EKG: Yes Surgeon's name: lawanda kingsley Facility name: [facility] Surgeon's office number: [phone] Surgeon's office fax number: [phone] Contact name: [place] Last office note from surgeon requested: Yes documented in this encounter Plan of Treatment Upcoming Encounters Date Type Department Care Team ([facility] st Contact Info) Description 09/09/2024 9:00 AM EDT Clinical Support [facility] MED & PEDS 505 [place] [address] Elsa Barnett, RN 505 [place] [address] documented as of this encounter Goals Goal Patient Goal Type Associated Problems Recent Progress Patient-Stated? Author Blood Pressure < 140/90 Blood Pressure 145/90(2024 10:18 AM EST) No Juan Cordova, PharmConstantin Hemoglobin A1c < 7 Result Component 6.4( 9:31 AM EST) No Juan Cordova, PharmD documented as of this encounter Visit Diagnoses Not on filedocumented in this encounter Additional Health Concerns Assessment Noted Time PHQ-9 Depression Total Score: 0 10/30/19 10:10 AM EDT documented as of this encounter Care Teams Thread Winder Automatic Relationship Specialty Start Date End Date Juan Miguel Tinajero MD [address] [place] [address] PCP - General Internal Medicine 05/28/18 Juan Cordova, PharmD [address] [place] [address] Pharmacist Internal Medicine 07/14/22 Yvonne Knox Flatbed Press OperatorHvac Journeyman 02/15/23 Yvonne Knox Flatbed Press OperatorHvac Journeyman 04/09/24 documented as of this encounter
--- OUTSIDE RECORDS SUMMARY | 2024-07-21 10:36 | XMS_ITS | Encounter Summary ---
Author Organization [employer] Address 75 [facility] 7t [place] [address] Care Team Providers Care Hostess Host Name Role Phone Juan Miguel Tinajero MD Primary Care Provider [phone]- [phone] Juan Cordova PharmD Unavailable Unavail able Encounter Details Date Type Department Care Team ([facility] st Contact Info) Description 09/26/2023 Orders Only [facility] CHC MED & PEDS [address] [place], [place] [phone] Juan Miguel Tinajero MD [address] [place] [address] Social History Tobacco Use Types Packs/Day Years [...] Description 09/09/2024 9:00 AM EDT Clinical Support [facility] MED & PEDS [address] [place] [address] Elsa Barnett RN 505 [place] [address] documented as of this encounter Goals Goal [...] documented as of this encounter Care Teams Hostess Host Relationship Specialty Start Date End Date Juan Miguel Tinajero MD [address] [place] [address] PCP - General Internal Medicine 05/28/18 Juan Cordova, PharmD [address] [place] [address] Pharmacist Internal Medicine 07/14/22 Yvonne Knox Third Shift LieutenantCruise Agent 02/15/23 Yvonne Knox Third Shift LieutenantCruise Agent 04/09/24 documented as of this encounter
--- OUTSIDE RECORDS SUMMARY | 2024-07-21 10:37 | XMS_ITS | Encounter Summary ---
Author Organization [employer] Address 75 [facility] 7t [place] [address] Care Team Providers Care Sand Drier Name Role Phone Juan Miguel Tinajero MD Primary Care Provider [phone] Juan Cordova PharmD Unavailable Unavail able Reason for Visit * Reason Comments Med Refill Encounter Details Date Type Department Care Team ([facility] Contact Info) Description 06/28/2023 Refill [facility] CHC MED & PEDS 505 [place], [place] [phone] Juan Miguel Tinajero MD [address] [place] [address] Moderate persistent asthma without complication Social History Tobacco Use Types Packs/Day Years Used Date Smoking Tobacco: Former Cigarettes Q uit: 2013 Smokeless Tobacco: Never Alcohol Use Standard Drinks/Week Comments Not Currently 0 (1 standard drink = 0.6 oz pur e alcohol) Depression Answer Date Recorded Patient Health Questionnaire-9 Score 2 04/03/2023 Patient Health Questionnaire-9 Score 2 04/03/2023 Last PHQ-9: Questionnaire Data Not on file 1 06/03/2022 Housing Stability Answer Date Recorded What is [...] Answer Date Recorded Patient Health Questionnaire-2 Score 2 04/03/2023 Sex and Gender Information Value Date Recorded [...] Description 09/09/2024 9:00 AM EDT Clinical Support [facility] MED & PEDS [address] [place] [address] Elsa Barnett RN 505 [place] [address] documented as of this encounter Goals Goal Patient Goal Type Associated Problems Recent Progress Patient-Stated? Author Blood Pressure < 140/90 Blood Pressure 145/90(2024 10:18 AM EST) No Juan Cordova, PharmD Hemoglobin A1c < 7 Result Component 6.4( 9:31 AM EST) No Juan Cordova, PharmD documented as of this encounter Visit Diagnoses Diagnosis Moderate persistent asthma without complication documented in this encounter Additional Health Concerns Assessment Noted Time PHQ-9 Depression Total Score: 2 04/03/20 23 8:54 AM EST documented as of this encounter Care Teams Sand Drier Relationship Specialty Start Date End Date Juan Miguel Tinajero MD [address] [place] [address] PCP - General Internal Medicine 05/28/18 Juan Cordova, PharmD [address] [place] [address] Pharmacist Internal Medicine 07/14/22 Yvonen Knox Grinding Wheel FacerMining Plant Operator 02/15/23 Yvonne Knox Grinding Wheel FacerMining Plant Operator 04/09/24 documented as of this encounter
--- OUTSIDE RECORDS SUMMARY | 2024-07-21 10:37 | XMS_ITS | Encounter Summary ---
Author Organization [employer] Address 75 [facility] 7[address] [place] [address] Care Team Providers Care Package Liner Name Role Phone Juan Miguel Tinajero MD Primary Care Provider +1- [phone] Juan Cordova PharmD Unavailable Unavail able Reason for Visit * Reason Comments Med Refill Encounter Details Date Type Department Care Team ([facility] Contact Info) Description 02/19/2023 Refill [facility] MED & PEDS [address] [place] [address] Juan Miguel Tinajero MD [address] [place] [address] Peripheral arterial occlusive disease (CMS/HCC) Social History Tobacco Use Types Packs/Day Years Used Date Smoking Tobacco: Former Cigarettes Q uit: 2013 Smokeless Tobacco: Never Alcohol Use Standard Drinks/Week Comments Not Currently 0 (1 standard drink = 0.6 oz pur e alcohol) Depression Answer Date Recorded Patient Health Questionnaire-9 Score 1 01/02/2023 Depression Answer Date Recorded Patient Health Questionnaire-2 [...] Upcoming Encounters Date Type Department Care Team ([facility] Contact Info) Description 09/09/2024 9:00 AM EDT Clinical Support [facility] MED & PEDS [address] [place] [address] Elsa Barnett, JENS [address] [place] [address] documented as of this encounter Goals Goal Patient Goal Type Associated Problems Recent Progress Patient-Stated? Author Blood Pressure < 140/90 Blood Pressure 145/90(2024 10:18 AM EST) No Juan Cordova, PharmD Hemoglobin A1c < 7 Result Component 6.4( 9:31 AM EST) No Juan Cordova, PharmD documented as of this encounter Visit Diagnoses Diagnosis Peripheral arterial occlusive disease (CMS/HCC) Unspecified peripheral vascular disease documented in this encounter Additional Health Concerns Assessment Noted Time PHQ-9 Depression Total Score: 1 01/03/20 23 9:06 AM EDT documented as of this encounter Care Teams Package Liner Relationship Specialty Start Date End Date Juan Miguel Tinajero MD [address] [place] [address] PCP - General Internal Medicine 05/28/18 Juan Cordova, PharmD [address] [place] [address] Pharmacist Internal Medicine 07/14/22 Yvonne Knox Business Objects ArchitectForming Roll Operator Heavy Duty 02/15/23 Yvonne Knox Business Objects ArchitectForming Roll Operator Heavy Duty 04/09/24 documented as of this encounter
--- OUTSIDE RECORDS SUMMARY | 2024-07-21 10:37 | XMS_ITS | Encounter Summary ---
Author Organization [employer] Address 75 [facility] 7t [place] [address] Care Team Providers Care Molding Line Operator Name Role Phone Juan Miguel Tinajero MD Primary Care Provider +1- [phone] Juan Cordova PharmD Unavailable Unavail able Encounter Details Date Type Department Care Team ([facility] st Contact Info) Description 06/14/2023 Orders Only [facility] CHC MED & PEDS [address] [place], [place] [phone] Juan Miguel Tinajero MD [address] [place] [address] Benign essential hypertension Social History Tobacco Use Types Packs/Day Years [...] Upcoming Encounters Date Type Department Care Team ([facility] st Contact Info) Description 09/09/2024 9:00 AM EDT Clinical Support [facility] MED & PEDS [address] [place] [address] Elsa Barnett RN 505 [place] [address] documented as of this encounter Goals Goal Patient Goal Type Associated Problems Recent Progress Patient-Stated? Author Blood Pressure < 140/90 Blood Pressure 145/90(2024 10:18 AM EST) No Juan Cordova, PharmD Hemoglobin A1c < 7 Result Component 6.4( 9:31 AM EST) No Juan Cordova, PharmD documented as of this encounter Visit Diagnoses Diagnosis Benign essential hypertension Essential hypertension, benign documented in this encounter Additional Health Concerns Assessment Noted Time PHQ-9 Depression Total Score: 2 04/03/20 23 8:54 AM EST documented as of this encounter Care Teams Molding Line Operator Relationship Specialty Start Date End Date Juan Miguel Tinajero MD [address] [place] [address] PCP - General Internal Medicine 05/28/18 Juan Cordova, PharmD [address] [place] [address] Pharmacist Internal Medicine 07/14/22 Yvonne Knox Tool Drawing CheckerGear Keeper 02/15/23 Yvonne Knox Tool Drawing CheckerGear Keeper 04/09/24 documented as of this encounter
--- OUTSIDE RECORDS SUMMARY | 2024-07-21 10:37 | XMS_ITS | Encounter Summary ---
Author Organization [employer] Address 75 [facility] 7t [place] [address] Care Team Providers Care Technical Support Technician Name Role Phone Juan Miguel Tinajero MD Primary Care Provider +1 [phone] Juan Cordova PharmD Unavailable Unavail able Reason for Visit * Reason Comments Med Refill Encounter Details Date Type Department Care Team ([facility] st Contact Info) Description 06/26/2024 Refill [facility] CHC MED & PEDS [address] [place], [place] [phone] Juan Miguel Tinajero MD [address] [place] [address] Chronic right shoulder pain; Pain in right [...] [facility] [address] [place] [address] Elsa Barnett, JENS 505 [place] [address] documented as of this encounter Goals Goal [...] documented as of this encounter Care Teams Technical Support Technician Relationship Specialty Start Date End Date Juan Miguel Tinajero MD 505 [facility] [place] [address] PCP - General Internal Medicine 05/28/18 Juan Cordova, Benjamin 505 [facility] [place] [address] Pharmacist Internal Medicine 07/14/22 Yvonne Knox Graining Press OperatorQa Automation Architect 02/15/23 Yvonne Knox Graining Press OperatorQa Automation Architect 04/09/24 documented as of this encounter
--- OUTSIDE RECORDS SUMMARY | 2024-07-21 10:37 | XMS_ITS | Encounter Summary ---
Author Organization [employer] Address 75 [facility] 7t [place] [address] Care Team Providers Care Tank Welder Name Role Phone Juan Miguel Tinajero MD Primary Care Provider [phone] [phone] Juan Cordova PharmD Unavailable Unavail able Reason for Visit * Reason Onset Date Comments Walk-In 06/27/2024 Encounter Details Date Type Department Care Team ([facility] Contact Info) Description 06/27/2024 Telephone [facility] CHC MED & PEDS [address] [place], [place] [phone] Juan Miguel Tinajero MD [address] [place] [address] Walk-In Social History Tobacco Use Types Packs/Day Years [...] encounter Miscellaneous Notes * Telephone Encounter - Tori Potter RN - 06/27/2024 9:56 AM EST Pt walked in this morning c/o LBP around his waist x 1 week. Pt denies any known injury to site. Has been taking Tylenol and Tramadol for pain with no effect. Pt states it is affecting his mobility and has to use a cane. No available appts today and was offered to be seen in [facility]. Pt concerned of availability once he gets to [facility]. Pt scheduled for 10:20 am in [facility] for evaluation. * Telephone Encounter - Esther Cardona - 06/27/2024 9:06 AM EST Pt sitting in waiting room, stated pain around lower back traveling around waist area. Using can towalk. Pt requesting to speak with nurse documented in this encounter Plan of Treatment Upcoming Encounters Date Type Department Care Team (Late st Contact Info) Description 09/09/2024 9:00 AM EDT Clinical Support [facility] MED & PEDS [address] [place] [address] Elsa Barnett, JENS [address] [place] [address] documented as of this encounter Goals Goal [...] documented as of this encounter Care Teams Tank Welder Relationship Specialty Start Date End Date Juan Miguel Tinajero MD [address] [place] [address] PCP - General Internal Medicine 05/28/18 Juan Cordova, PharmD 505 [place] [address] Pharmacist Internal Medicine 07/14/22 Yvonne Knox Assistant Nurse ManagerAquatic Centre Manager 02/15/23 Yvonne Knox Assistant Nurse ManagerAquatic Centre Manager 04/09/24 documented as of this encounter
--- OUTSIDE RECORDS SUMMARY | 2024-07-21 10:37 | XMS_ITS | Encounter Summary ---
Author Organization [facility] Address [address] [place] [address] [address] [place] [address] Care Team Providers Care Senior Corporate Strategy Manager Name Role Phone Juan Miguel Tinajero MD Primary Care Provider +1- [phone] Juan Cordova PharmD Unavailable Unavail able Encounter Details Date Type Department Care Team (Latest Contact Info) Description 03/17/2022 Abstract [facility] CONVERSIONS Dental, Provider, DDS Social History Tobacco Use Types Packs/Day Years Used Date Smoking Tobacco: Never Assessed Sex and Gender Information Value Date Recorded [...] Description 09/09/2024 9:00 AM EDT Clinical Support [facility] CHC MED & PEDS [address] [place] [address] Elsa Barnett, JENS 505 [place] [address] documented as of this encounter Visit Diagnoses Not on filedocumented in this encounter Care Teams Senior Corporate Strategy Manager Relationship Specialty Start Date End Date Juan Miguel Tinajero MD 505 [place] [address] PCP - General Internal Medicine 05/28/18 Juan Cordova, PharmD [address] [place] [address] [place] [address] Pharmacist Internal Medicine 07/14/22 Yvonne Knox Service Tech/WelderGear Machine Operator General 02/15/23 Yvonne Knox Service Tech/WelderGear Machine Operator General 04/09/24 documented as of this encounter
--- OUTSIDE RECORDS SUMMARY | 2024-07-21 10:37 | XMS_ITS | Encounter Summary ---
Author Organization [employer] Address 75 [facility] 7t [place] [address] Care Team Providers Care Stone Gluer Name Role Phone Juan Miguel Tinajero MD Primary Care Provider +1- [phone] Juan Cordova PharmD Unavailable Unavail able Encounter Details Date Type Department Care Team (Late st Contact Info) Description 04/24/2022 Abstract [facility] ADULT DENTAL [address] [place] [address] Dental, Provider, DDS Social History Tobacco Use [...] 9:00 AM EDT Clinical Support [facility] MED & PEDS [address] [place] [address] Elsa Barnett, JENS [address] [place] [address] documented as of this encounter Procedures Procedure Name Priority Date/Time Associated Diagnosis Comments 2,3,14,15 PARTIAL DENTURE - RESIN Routine 04/24/2022 12:00 AM EST 10 DL COMPOSITE FILLING Routine 04/24/2022 12:00 AM EST 4 O COMPOSITE FILLING Routine 04/24/2022 12:00 AM EST 8 DL COMPOSITE FILLING Routine 04/24/2022 12:00 AM EST documented in this encounter Visit Diagnoses Not on filedocumented in this encounter Care Teams Stone Gluer Relationship Specialty Start Date End Date Juan Miguel Tinajero MD 505 [facility] [place] [address] PCP - General Internal Medicine 05/28/18 Juan Cordova PharmD 505 [facility] [place] [address] Pharmacist Internal Medicine 07/14/22 Yvonne Knox Courtroom DeputyCloth Opener Hand 02/15/23 Yvonen Knox Courtroom DeputyCloth Opener Hand 04/09/24 documented as of this encounter
--- OUTSIDE RECORDS SUMMARY | 2024-07-21 10:37 | XMS_ITS | Encounter Summary ---
Author Organization [employer] Address 75 [facility] [address] [place] [address] Care Team Providers Care Log Tumbler Name Role Phone Juan Miguel Tinajero MD Primary Care Provider +1- [phone] Juan Cordova PharmD Unavailable Unavail able Encounter Details Date Type Department Care Team ([facility] Contact Info) Description 05/05/[address] [facility] MEDICINE [address] [place], [place] [phone] Juan Miguel Tinajero MD [address] [place] [address] Social History Tobacco Use Types Packs/Day Years [...] suspected to have Coronavirus/COVID-19? No / Unsure 05/03/2022 8:21 AM EST documented as of this encounter Plan of Treatment Upcoming Encounters Date Type Department Care Team ([facility] Contact Info) Description 09/09/2024 9:00 AM EDT Clinical Support [facility] CHC MED & PEDS [address] [place] [address] Elsa Barnett RN [address] [place] [address] documented as of this encounter Goals Goal Patient Goal Type Associated Problems Recent Progress Patient-Stated? Author Hemoglobin A1c < 7 Result Component 6.4(05/14/2024 9:31 AM EST) No Juan Cordova, PharmD documented as of this encounter Visit Diagnoses Not on filedocumented in this encounter Care Teams Log Tumbler Relationship Specialty Start Date End Date Juan Miguel Tinajero MD [address] [place] [address] PCP - General Internal Medicine 05/28/18 Juan Cordova, PharmD [address] [place] [address] Pharmacist Internal Medicine 07/14/22 Yvonne Knox Automotive General Sales ManagerA/C Tech 02/15/23 Yvonne Knox [employer]otive General Sales ManagerA/C Tech 04/09/24 documented as of this encounter
== END 2024-07-21 10:17 | disposition home or self-care (01) ==
PROVIDERS: PCP Internal Medicine; Visit Provider Orthopaedic Surgery
DX: S46.001D Unspecified injury of muscle(s) and tendon(s) of the rotator cuff of right shoulder, subsequent encounter (principal)
CPT/HCPCS: 99213

== ENCOUNTER → 2024-07-21 09:41 | Outpatient (BNVA) | payer MEDICAID, SELFPAY | PROVIDERS: PCP Internal Medicine; Visit Provider Orthopaedic Surgery | DX: Z98.890 Other specified postprocedural states (principal) | CPT/HCPCS: 99212 ==

== ENCOUNTER → 2024-08-07 09:32 | Outpatient (REF) | payer MEDICAID, SELFPAY ==
--- NOTE | 2024-08-07 09:35 | CA_ITS ---
Acquisition Time: 2024-08-07 10:10:17 Total Exercise Time: 00:00:40 Test Indications: CP Medications: SEE H&P Protocol: TAYLOR Max HR: 89 BPM 57% of Pred: 156 BPM Max BP: 158/60 mmHG Max Work Load: 2.1 METS Exercise stress test with exercise 40 secs of Taylor Protocol, requesting to stop due to left leg and hip discomfort. Test switched to Pharmacologic stress test with Lexiscan. Pharamcological stress test with Lexiscan while pt walked on treadmill at 0.6mph, with reports of SOB and feeling fatigue, without any arrythmias, with normotensive response to injection. Nondiagnostuc EKG for ischemia. In recovery, pt feeling back to baseline. Nuclear images pending. Test reviewed with Dr. Miguel. Referred By: Bassam Ogden Electronically Signed By: Nathaniel Schafer
--- OUTSIDE RECORDS SUMMARY | 2024-08-07 11:21 | XMS_ITS | Encounter Summary ---
Author Organization [employer] Address [address] [facility] 7t [place] [address] Care Team Providers Care Robotics Software Engineer Name Role Phone Juan Miguel Tinajero MD Primary Care Provider +1- [phone] Juan Cordova PharmD Unavailable Unavail able Encounter Details Date Type Department Care Team ([facility] st Contact Info) Description 11/09/2023 Orders Only [facility] CHC MED & PEDS [address] [place], [place] [phone] Juan Miguel Tinajero MD [address] [place] [address] Social History Tobacco Use Types Packs/Day Years [...] Description 09/09/2024 9:00 AM EDT Clinical Support [facility] CHC MED & PEDS [address] [place] [address] Elsa Barnett, JENS 505 [place] [address] 11/19/2024 10:00 AM EDT Office Visit [facility] OPTOMETRY [address] [place] [address] Oneida Louie, OD [address] [place] [address] documented as of this encounter Goals Goal [...] documented as of this encounter Care Teams Robotics Software Engineer Relationship Specialty Start Date End Date Juan Miguel Tinajero MD [address] [place] [address] PCP - General Internal Medicine 05/28/18 Juan Cordova, PharmD [address] [place] [address] [place] Garcia [address] Pharmacist Internal Medicine 07/14/22 Yvonne Knox Supervisor ExtrusionKnockout Man 02/15/23 Yvonne Knox Supervisor ExtrusionKnockout Man 04/09/24 documented as of this encounter
--- OUTSIDE RECORDS SUMMARY | 2024-08-07 11:21 | XMS_ITS | Encounter Summary ---
Author Organization [employer] Address 75 [facility] 7t [place] [address] Care Team Providers Care Cloth Washer Name Role Phone Juan Miguel Tinajero MD Primary Care Provider +1 [phone] Juan Cordova PharmD Unavailable Unavail able Reason for Visit * Reason Comments Med Refill Encounter Details Date Type Department Care Team ([facility] st Contact Info) Description 10/31/2023 Refill [facility] CHC MED & PEDS 505 [place], [place] [phone] Juan Miguel Tinajero MD 505 [place] [address] Chronic right shoulder pain; Pain in right [...] Description 09/09/2024 9:00 AM EDT Clinical Support [facility] CHC MED & PEDS 505 [place] [address] Elsa Barnett, RN 505 [place] [address] 11/19/2024 10:00 AM EDT Office Visit [facility] OPTOMETRY [address] [place] [address] Liban, Oneida, OD [address] [place] [address] documented as of this encounter Goals Goal [...] documented as of this encounter Care Teams Cloth Washer Relationship Specialty Start Date End Date Juan Miguel Tinajero MD 505 [facility] [place] [address] PCP - General Internal Medicine 05/28/18 Juan Cordova PharmD 505 [place] [address] Pharmacist Internal Medicine 07/14/22 Yvonne Knox Centrifugal Casting Machine TenderLog Check Scaler 02/15/23 Yvonne Knox Centrifugal Casting Machine TenderLog Check Scaler 04/09/24 documented as of this encounter
--- OUTSIDE RECORDS SUMMARY | 2024-08-07 11:21 | XMS_ITS | Encounter Summary ---
Author Organization [employer] Address 75 [facility] 7t [place] [address] Care Team Providers Care Job Compositor Name Role Phone Juan Miguel Tinajero MD Primary Care Provider +1 [phone] Juan Cordova PharmD Unavailable Unavail able Reason for Visit * Reason Onset Date Comments ER Follow-up 07/20/2023 Encounter Details Date Type Department Care Team ([facility] st Contact Info) Description 07/20/2023 Telephone [facility] MEDICINE [address] [place] [address] Juan Miguel Tinajero MD [address] [place] [address] ER Follow-up Social History Tobacco Use Types [...] AM EST TC placed to patient via [employer] regarding message below. Patient reports that 8 days ago, he had a fall and hit his L side and was evaluated at [facility]. They said he didn't break anything, but he is continuing to have L-sided pain in the area of his ribs. He denies bruising in the area,and he says that aspirin, tramadol, and another anti-inflammatory that was prescribed are not helping. Denies other symptoms. Advised to go to [facility] today for evaluation and patient agrees. [...] ED visit on : Date: 07/12/2023 Hospital: [facility] Seen for: Fall Patient advised will forward to team nurse for follow up. Symptom: Chest Injury Outcome: Talk to a nurse or provider within 15 minutes Reason: Left Rib The caller accepted this outcome Yvonne Roseline [phone] * Telephone Encounter - Tsering Pastrana - 07/20/2023 11:40 AM EST Patient calling to report ED visit on : Date: 07/12/2023 Hospital: [facility] Seen for: Fall Patient advised will forward to team nurse for follow up. Symptom: Chest Injury Outcome: Talk to a nurse or provider within 15 minutes Reason: Left Rib The caller accepted this outcome Yvonne [facility] [phone] documented in this encounter Plan of Treatment Upcoming Encounters Date Type Department Care Team (Late st Contact Info) Description 09/09/2024 9:00 AM EDT Clinical Support [facility] CHC MED & PEDS [address] [place], [place] [phone] Elsa Barnett RN 505 [place], [place] [phone] 11/19/2024 10:00 AM EDT Office Visit [facility] OPTOMETRY [address] [place] [address] LibanOneida chavez, OD [address] [place] [address] documented as of this encounter Goals Goal [...] documented as of this encounter Care Teams Job Compositor Relationship Specialty Start Date End Date Juan Miguel Tinajero MD [address] [place] [address] PCP - General Internal Medicine 05/28/18 JefelogKaleb mtzis, PharmD [address] [place] [address] [place] [address] Pharmacist Internal Medicine 07/14/22 Yvonne Knox Lead Sustainability SpecialistTeacher Of The Deaf 02/15/23 Yvonne Knox Lead Sustainability SpecialistTeacher Of The Deaf 04/09/24 documented as of this encounter
--- OUTSIDE RECORDS SUMMARY | 2024-08-07 11:21 | XMS_ITS | Continuity of Care Document ---
Author Organization [facility] Address [address] [place] [address] Phone Care Team Providers Care E Commerce Project Manager Name Role Phone Unavailable Unavailable Unavailable Allergies, Adverse Reactions, Alerts Substance Reaction Status [...] Meter kit take 1 not specified by [facility]non-drug; combo) route 4 times every day 1 [...] Hx. Low MDM Expanded Problem Hx. Low [facility] Capillary Finger Heel Ear Blood Draw Nov Glucose By Monitoring Device Detailed Hx/Ex Moderate [facility] Glucose By Monitoring Device Capillary Finger Heel Ear Blood Draw September Detailed Hx/Ex Moderate MDM Detailed Hx/Ex Moderate [facility] Expanded Problem Hx. Low [facility] Expanded Problem Hx. Low [facility] Administration Without Counseling Tdap>7yrs IM Expanded Problem Hx. Low [facility] Toradol/Ketorolac Admin Inj Theraputic Prophylactic Diag S C Or IM Expanded Problem Hx. Low [facility] Expanded Problem Hx. Low [facility] Administration Without Counseling Fluzone Quadrivalent Influenza Vaccine 3 Yrs + Routine EKG Screening With Interpretatio n & Report Detailed Hx/Exam Low [facility] Advance Directives Directive Yes / No Effective Date File Name No Information Encounters Encounter Description Practice Location Reason(s) For Visit Diagnoses Date Provider Providers Copied on Encounter [facility], [address] [place] [address], [id number] , tel:[phone] [facility] No Information [address], [id number] , tel:[phone] [facility] No Information 9 Shawn Gandhi. [facility] [place] [address] [id number] [place], [address], [place]. tel:[phone] Expanded Problem Hx. [address], [id number] , tel:[phone] [facility] Follow Up of flank pain (chief complaint) Body mass index (BMI) 38.0-38.9, adultType 2 diabetes mellitus without complication, with long-term current use of insulinAbdomi nal bloatingRight kidney mass Sep-1 - 9 No Information Expanded Problem Hx. Low [address], [id number] , [place] tel:+ [phone] [facility] diabetes (chief complaint). (chief complaint) Right kidney massType 2 diabetes mellitus with hyperglycemia Body mass index (BMI) 37.0-37.9, adult Sep-0 5-201 9 No Information [facility], [address] [place] [address], [id number] , [place] tel:+ [phone] [facility] No Information No Information Detailed Hx/Ex Moderate MDM [facility], [address] [place] [address], [id number] , [place] tel:+ [phone] [facility] Follow Up of diabetes (chief complaint)Gas (chief complaint) Body mass index (BMI) 38.0-38.9, adultType 2 diabetes mellitus without complication, with long-term current use of insulinDiarrh ea, unspecified typeDDD (degenerative disc disease), cervicalEssen tial hypertensionH yperlipidemia , unspecified hyperlipidemi a typeHistory of [place] (myocardial infarction) No Information Detailed Hx/Ex Moderate MDM [address], [id number] , tel:+ [phone] [facility] flank pain (chief complaint)Ski n tag(s) (chief [...] type 2 diabetes mellitusInfec kevin surgical wound No Information [address], [id number] , [place] tel:+ [phone] [facility] No Information No Information Detailed Hx/Ex Moderate MDM [address], [id number] , [place] tel:+ [phone] [facility] diabetes (chief complaint)hyp ertension (chief complaint)fol low up [facility] (chief complaint)Fla nk pain (chief complaint) Body mass index (BMI) 37.0-37.9, adultClosed fracture of multiple ribs of right side with routine healing, subsequent encounterEsse ntial hypertensionH yperlipidemia , unspecified hyperlipidemi a typeType 2 diabetes mellitus with hyperglycemia History of OK (myocardial infarction)Ot her diabetic neurological complication associated with type 2 diabetes mellitus 9 No Information Expanded Problem Hx. [facility], [address] [place] [address], [id number] , tel:+ [phone] [facility] Follow Up of Shoulder pain (chief complaint) Body mass index (BMI) 37.0-37.9, adultLeft anterior shoulder pain Jul- 9 No Information Expanded Problem Hx. [address], [id number] , tel:+ [phone] [facility] shoulder pain (chief complaint) Body mass index (BMI) 37.0-37.9, adultLeft anterior shoulder pain 9 No Information Expanded Problem Hx. [facility], [address] [place] [address], [id number] , tel:+ [phone] [facility] immunizations (chief complaint)Khushbu st pain (chief complaint)alejandro betes (chief complaint) Body mass index (BMI) 38.0-38.9, adultType 2 diabetes mellitus with hyperglycemia Essential hypertension No Information Expanded Problem Hx. [facility], [address] [place] [address], [id number] , tel:+ [phone] [facility] shoulder pain (chief complaint)alejandro betes (chief complaint) Body mass index (BMI) 38.0-38.9, adultType 2 diabetes mellitus with hyperglycemia Bilateral claudication of lower limbDeltoid tendonitis of left shoulder No Information Expanded Problem Hx. [address], [id number] , tel:+ [phone] [facility] elbow pain (chief complaint)fol low up on lab test(s) (chief complaint)alejandro betes (chief complaint) Body mass index (BMI) 38.0-38.9, adultArthriti s of elbow, leftType 2 diabetes mellitus with hyperglycemia 8 No Information [facility], [address] [place] [address], [id number] , tel:+ [phone] [facility] No Information 8 No Information Detailed Hx/Exam Low MDM [facility], [address] [place] [address], [id number] , tel:+ [phone] [facility] establish pcp (chief complaint)alejandro joel (chief complaint)hyp ertension (chief complaint) Body mass index (BMI) 37.0-37.9, adultAcute stress reactionEssen tial hypertensionT ype 2 diabetes mellitus without complication, with long-term current use of insulinFlu vaccine needHyperlipi demia, unspecified hyperlipidemi a typeHistory of OK (myocardial infarction)Ot her diabetic neurological complication associated with type 2 diabetes mellitusLeft arm pain 8 No Information Family History Family Member Type Diagnosis Age At Onset No Information Immunizations Vaccine Date Status Comments Tdap administered Source: New Imm unization Record Influenza, injectable, quadrivalent, preservative free, 3 yrs or older administered Source: New Immuniz ation Record Payers Payer name Insurance type Covered alliance party ID Authoriza tion(s) [facility] [id number] [facility] [id number] [facility] [id number] [facility] [id number] [facility] [id number] [facility] [id number] Social History Type Description Quantity Date Captured [...] Lab Order COMPREHE NSIVE METABOLIC PANEL W/EGFR ([id number]), Ordered on: Ordered History Of Present Illness [...] patient. diabetes Risk factors inc lude: / [facility] [place], family history diabetes mellitus, obesity, over age [...] of diabetes Risk facto rs include: / [place], family history diabetes mellitus, obesity, over age [...] having pain, out of medication. Was at [facility] in August for fractured ribs on the [...] 06 with the vascular surgeon. . The diplomatic interpreter phone was used through this entire visit. Patient speaks only Monegasque. follow up [facility] Was at [facility] for rib pain. Flank pain Pain level [...] states unable to sleep d/t pain, at [facility] in August for fx of right rib. hypertension Comorbid conditi ons include diabetes mellitus and post-OK. Risk factors include family history HTN, gout or CAD, inactive lifestyle, male gender and obesity. The hypertension is exacerbated by nothing. Pertinent negatives include chest pain, claudication, confusion, diaphoresis, dyspnea, epistaxis, fatigue, headache, hematuria, irregular heartbeat/palpitations, nausea, tinnitus, transient weakness, tremor, visual disturbances and vomiting. Additional information: medication refills diabetes Risk factors inc lude: / [place], family history diabetes mellitus, obesity, over age [...] excludes tobacco use. Patient was seen at [facility] last for chest pain. Patient states he took nitro x 3 before going to the hospital. Stress test and CTA of chest were unremarkable. immunizations Patient wants te tanus vaccine. diabetes Risk factors inc lude: / [place], family history diabetes mellitus and sedentary lifestyle. [...] shoulder. diabetes Risk factors inc lude: / [place], family history diabetes mellitus and sedentary lifestyle. [...] weakness. diabetes Risk factors inc lude: / [place], family history diabetes mellitus and sedentary lifestyle. Pertinent negatives include blurred vision, burning of extremities, chest pain, constant hunger, dental disease, diarrhea, dysesthesias, dyspnea, foot ulcers, frequent infections, frequent urination, heartburn, hypoglycemic episodes, increased fatigue, nocturia, polydipsia and slow healing wounds / sores. diabetes Risk factors inc lude: / [place], family history diabetes mellitus and sedentary lifestyle. Pertinent negatives include chest pain, diarrhea and dyspnea. Additional information: establishing care today- needs all refills and glucometer. hypertension Comorbid conditi ons include diabetes mellitus and post-OK. Risk factors include family history HTN, gout or CAD and male gender. Pertinent negatives include chest pain, dyspnea, fatigue, headache, hematuria, irregular heartbeat/palpitations, nausea and vomiting. Additional information: establishing care- needs to also establish with cardiology for annual check ups establish pcp Patient presents today to establish PCP. PMH: diabetes, hypertension, hyperlipidemia, gerd, neuropathy, OK 2013- cardiac bypass surgey, 5 stents placed, Hx stroke 2015 last saw his heart doctor 4 months ago, was going ever 6 months in [place], recently moved here - needs cardiology referral [...] No Information Instructions Date Instruction Additional Infor mation Giving [...]
--- OUTSIDE RECORDS SUMMARY | 2024-08-07 11:21 | XMS_ITS | Encounter Summary ---
Author Organization [employer] Address [address] [facility] 7t [place] [address] Care Team Providers Care Therapeutic Radiologist Name Role Phone Juan Miguel Tinajero MD Primary Care Provider [phone] [phone] Juan Cordova PharmD Unavailable Unavail able Reason for Visit * Reason Comments Med Refill Encounter Details Date Type Department Care Team ([facility] Contact Info) Description 10/31/2023 Refill [facility] CHC MED & PEDS [address] [place], [place] [phone] Juan Miguel Tinajero MD [address] [place] [address] Sore throat; Bacterial conjunctivitis; Chronic pain syndrome [...] Description 09/09/2024 9:00 AM EDT Clinical Support [facility] CHC MED & PEDS [address] [place] [address] Elsa Barnett, JENS 505 [place] [address] 11/19/2024 10:00 AM EDT Office Visit [facility] OPTOMETRY [address] [place] [address] LibanOneida, OD [address] [place] [address] documented as of this encounter Goals Goal Patient Goal Type Associated Problems Recent Progress Patient-Stated? Author Blood Pressure < 140/90 Blood Pressure 145/90(2024 10:18 AM EST) No Dellogbibi, Juan, PharmD Hemoglobin A1c < 7 Result Component 6.4( 9:31 AM EST) No Juan Cordova, PharmD documented as of this encounter Visit Diagnoses Diagnosis Sore throat Acute pharyngitis Bacterial conjunctivitis Other mucopurulent conjunctivitis Chronic pain syndrome documented in this encounter Additional Health Concerns Assessment Noted Time PHQ-9 Depression Total Score: 0 10/30/19 24 10:10 AM EDT documented as of this encounter Care Teams Therapeutic Radiologist Relationship Specialty Start Date End Date Juan Miguel Tinajero MD 505 [facility] D[place] Garcia [address] PCP - General Internal Medicine 05/28/18 Juan Cordova PharmD 505 [facility] [place] [address] Pharmacist Internal Medicine 07/14/22 Yvonne Knox Electric Refrigerator PreparerDoor Serviceman 02/15/23 Yvonne Knox Electric Refrigerator PreparerDoor Serviceman 04/09/24 documented as of this encounter
--- OUTSIDE RECORDS SUMMARY | 2024-08-07 11:21 | XMS_ITS | Encounter Summary ---
Author Organization [employer] Address [address] [facility] [address] [place] [address] Care Team Providers Care Diploma Pharmacy Technician Name Role Phone Juan Miguel Tinajero MD Primary Care Provider +1- [phone] Juan Cordova PharmD Unavailable Unavail able Reason for Visit * Reason Comments Med Refill Encounter Details Date Type Department Care Team (Late Contact Info) Description 08/19/2022 Refill [facility] CHC MED & PEDS [address] [place] [address] Juan Miguel Tinajero MD 505 [place] [address] Seasonal allergic rhinitis due to other allergic [...] Upcoming Encounters Date Type Department Care Team ([facility] Contact Info) Description 09/09/2024 9:00 AM EDT Clinical Support [facility] CHC MED & PEDS [address] [place] [address] Elsa Barnett, RN [address] [place], [place] 11/19/2024 10:00 AM EDT Office Visit [facility] OPTOMETRY [address] [place] [address] Oneida Louie, OD [address] [place] [address] documented as of this encounter Goals Goal [...] documented as of this encounter Care Teams Diploma Pharmacy Technician Relationship Specialty Start Date End Date Juan Miguel Tinajero MD 505 [place] [address] PCP - General Internal Medicine 05/28/18 Juan Cordova, PharmD 505 [place] [address] Pharmacist Internal Medicine 07/14/22 Yvonne Knox Iv Therapy NurseStock Preparation Supervisor 02/15/23 Yvonne Knox Iv Therapy NurseStock Preparation Supervisor 04/09/24 documented as of this encounter
--- OUTSIDE RECORDS SUMMARY | 2024-08-07 11:21 | XMS_ITS | Encounter Summary ---
Author Organization [employer] Address 75 [facility] 7t [place] [address] Care Team Providers Care Washer Meat Name Role Phone Juan Miguel Tinajero MD Primary Care Provider [phone]- [phone] Juan Cordova PharmD Unavailable Unavail able Reason for Visit * Reason Comments Med Refill Encounter Details Date Type Department Care Team (Late Contact Info) Description 12/18/2022 Refill [facility] CHC MED & PEDS [address] [place], [place] [phone] Juan Miguel Tinajero MD [address] [place] [address] Back pain, unspecified back location, unspecified back [...] Description 09/09/2024 9:00 AM EDT Clinical Support [facility] CHC MED & PEDS [address] [place] [address] Elsa Barnett, JENS [address] [place] [address] 11/19/2024 10:00 AM EDT Office Visit [facility] OPTOMETRY [address] [place] [address] LibanOneida chavez, OD [address] [place] [address] documented as of this encounter Goals Goal [...] documented as of this encounter Care Teams Washer Meat Relationship Specialty Start Date End Date Juan Miguel Tinajeor MD [address] [place] [address] PCP - General Internal Medicine 05/28/18 Juan Cordova, PharmD [address] [place] [address] Pharmacist Internal Medicine 07/14/22 Yvonne Knox Social Media Marketing ManagerWet Finisher 02/15/23 Yvonne Knox Social Media Marketing ManagerWet Finisher 04/09/24 documented as of this encounter
--- OUTSIDE RECORDS SUMMARY | 2024-08-07 11:21 | XMS_ITS | Encounter Summary ---
Author Organization [employer] Address [address] [facility] 7t [place] [address] Care Team Providers Care Investor Name Role Phone Juan Miguel Tinajeor MD Primary Care Provider +1 [phone] Juan Cordova PharmD Unavailable Unavail able Reason for Visit * Reason Comments Med Refill Encounter Details Date Type Department Care Team ([facility] Contact Info) Description 08/05/2024 Refill [facility] CHC MED & PEDS [address] [place], [place] [phone] Juan Miguel Tinajero MD [address] [place] [address] Peripheral arterial occlusive disease (CMS/HCC) Social History [...] Description 09/09/2024 9:00 AM EDT Clinical Support [facility] CHC MED & PEDS [address] [place] [address] Elsa Barnett, JENS [address] [place] [address] 11/19/2024 10:00 AM EDT Office Visit [facility] OPTOMETRY [address] [place] [address] Oneida Louie, OD [address] [place] [address] documented as of this encounter Goals Goal Patient Goal Type Associated Problems Recent Progress Patient-Stated? Author Blood Pressure < 140/90 Blood Pressure 145/90(2024 10:18 AM EST) No Juan Cordova, PharmD Hemoglobin A1c < 7 Result Component 6.4( 9:31 AM EST) No DellogJuan mtz, PharmD documented as of this encounter Visit Diagnoses Diagnosis Peripheral arterial occlusive disease (CMS/HCC) Unspecified peripheral vascular disease documented in this encounter Additional Health Concerns Assessment Noted Time PHQ-9 Depression Total Score: 0 10/30/19 10:10 AM EDT documented as of this encounter Care Teams Investor Relationship Specialty Start Date End Date Juan Miguel Tinajero MD [address] [facility] [place] [address] PCP - General Internal Medicine 05/28/18 Juan Cordova, EbonieD [address] [place] [address] Pharmacist Internal Medicine 07/14/22 Yvonne Knox Black Top Spreader Machine OperatorDirector Of Athletics 02/15/23 Yvonne Konx Black Top Spreader Machine OperatorDirector Of Athletics 04/09/24 documented as of this encounter
--- OUTSIDE RECORDS SUMMARY | 2024-08-07 11:21 | XMS_ITS | Encounter Summary ---
Author Organization [employer] Address [address] [facility] [address] [place] [address] Care Team Providers Care Fan Engine Engineer Name Role Phone Juan Miguel Tinajero MD Primary Care Provider [phone] Juan Cordova PharmD Unavailable Unavail able Reason for Visit * Reason Onset Date Comments Pre-op Visit 01/07/2024 Encounter Details Date Type Department Care Team ([facility] st Contact Info) Description 01/07/2024 Telephone [facility] MEDICINE [address] [place] [address] Juan Miguel Tinajero MD [address] [place] [address] Pre-op Visit Social History Tobacco Use Types [...] PM EDT Outgoing call to [place] at [facility] calling to inform pt agreed to come [...] Yes Surgeon's name: lawanda kingsley Facility name: [facility] Surgeon's office number: [phone] Surgeon's office fax number: [phone] Contact name: [place] Last office note from surgeon requested: Yes documented in this encounter Plan of Treatment Upcoming Encounters Date Type Department Care Team ([facility] st Contact Info) Description 09/09/2024 9:00 AM EDT Clinical Support [facility] MED & PEDS [address] [place] [address] Elsa Barnett, RN [address] [place] [address] 11/19/2024 10:00 AM EDT Office Visit [facility] OPTOMETRY [address] [place] [address] Liban Oneida, OD [address] [place] [address] documented as of this encounter Goals Goal [...] documented as of this encounter Care Teams Fan Engine Engineer Relationship Specialty Start Date End Date Juan Miguel Tinajero MD [address] [place] [address] PCP - General Internal Medicine 05/28/18 Juan Cordova, PharmD [address] [place] [address] Pharmacist Internal Medicine 07/14/22 Yvonne Knox Cleaner IndustrialMachine Design Checker 02/15/23 Yvonne Knox Cleaner IndustrialMachine Design Checker 04/09/24 documented as of this encounter
--- OUTSIDE RECORDS SUMMARY | 2024-08-07 11:21 | XMS_ITS | Clinical Summary ---
Author Organization [facility] ity Address [address] [place] [address] Care Team Providers Care Craft Artist Name Role Phone Unavailable Primary Care Provider [...]
--- OUTSIDE RECORDS SUMMARY | 2024-08-07 11:21 | XMS_ITS | Encounter Summary ---
Author Organization [employer] Address [address] [facility] [address] [place] [address] Care Team Providers Care Application Defense Manager Name Role Phone Juan Miguel Tinajero MD Primary Care Provider [phone] Juan Cordova PharmD Unavailable Unavail able Encounter Details Date Type Department Care Team (Late st Contact Info) Description 12/03/[address] [facility] PEDS [address] [place], [place] [id number] Juan Miguel Tinajero MD [address] [place] [address] Type 2 diabetes mellitus with both eyes affected by mild nonproliferative retinopathy without macular edema, with long-term current use of insulin ([facility]) (Primary Dx) Social History Tobacco [...] 09/09/2024 9:00 AM EDT Clinical Support [facility] [address] [place] [address] Elsa Barnett, RN [address] [place] [address] 11/19/2024 10:00 AM EDT Office Visit [facility] OPTOMETRY [address] [place] [address] Liban, Oneida, OD [address] [place] [address] documented as of this encounter Goals Goal [...] edema, with long-term current use of insulin ([facility])- Primary documented in this encounter Additional Health Concerns Assessment Noted Time PHQ-9 Depression Total Score: 0 10/30/19 24 10:10 AM EDT documented as of this encounter Care Teams Application Defense Manager Relationship Specialty Start Date End Date Juan Miguel Tinajero MD [address] [place] [address] PCP - General Internal Medicine 05/28/18 Juan Cordova, Benjamin [address] [place] [address] Pharmacist Internal Medicine 07/14/22 Yvonne Knox [employer] SupervisorArt Class Model 02/15/23 Yvonne Knox [employer] SupervisorArt Class Model 04/09/24 documented as of this encounter
--- OUTSIDE RECORDS SUMMARY | 2024-08-07 11:21 | XMS_ITS | Clinical Summary ---
Author Organization [employer] Address [address] [facility] 7t [place] [address] Care Team Providers Care Veterinary Virologist Name Role Phone Juan Miguel Tinajero MD Primary Care Provider [phone] Juan Cordova PharmD Unavailable Unavail able Allergies [...] / DIRECTED 023 Active Continuous Blood Gluc Sheet Fed Printer (FreeStyle Michael 2 [place]) deviceIndications: Type 2 diabetes mellitus with other circulatory complication, with long-term current use of insulin ([facility]) Use to check blood sugar as directed 1 each 023 Active glucose 4 g chewable tabletIndications: Type 2 diabetes mellitus with other circulatory complication, with long-term current use of insulin ([facility]) Chew 4 tablets (16 g) [...] complication, with long-term current use of insulin ([facility]) USE TO TEST BLOOD SUGAR CHANGE AFTER TWO WEEKS, THREE TIMES DAILY 2 each 023 Active carvedilol (Coreg) 6.25 MG tabletIndications: Benign essential hypertension TAKE ONE TABLET TWICE DAILY IN THE MORNING AND AT BEDTIME WITH FOOD 180 tablet 3 023 Active clopidogrel (Plavix) 75 MG tabletIndications: Peripheral arterial occlusive disease ([facility]) TAKE ONE TABLET EVERY MORNING 90 tablet 3 023 Active isosorbide mononitrate ER (Imdur) 60 MG 24 hr tabletIndications: Benign essential hypertension TAKE ONE TABLET EVERY MORNING 90 tablet 1 024 Active fluticasone (Flovent HFA) 110 MCG/ACT inhalerIndications :Moderate persistent asthma without complication INHALE TWO PUFFS TWICE DAILY, RINSE MOUTH AFTER USE 12 g 11 024 Active Acetaminophen Extra Strength 500 MG tabletIndications: Chronic pain syndrome TAKE TWO TABLETS EVERY 6 HOURS NEEDED FOR PAIN 40 tablet 1 024 Active Easy Touch Lancets 33G/Twist miscIndications:Ty pe 2 diabetes mellitus with other circulatory complication, with long-term current use of insulin ([facility]) TEST BLOOD SUGAR FIVE TIMES DAILY 200 each 11 024 Active risperiDONE (RisperDAL) 3 MG tabletIndications: MDD (major depressive disorder), recurrent, severe, with psychosis ([facility]) Take 1 tablet (3 mg) by mouth at bedtime. 90 tablet 3 024 Active Alcohol Swabs (Alcohol Prep) 70 % padsIndications:Ty pe 2 diabetes mellitus with diabetic peripheral angiopathy without gangrene, with long-term current use of insulin ([facility]) USE FIVE DAILY 100 each 11 024 Active Diclofenac Sodium 1 % gelIndications:Chr onic right shoulder pain APPLY 2 GRAM'S TO AFFECTED AREA(s) FOUR TIMES DAILY NEEDED 100 g 1 024 Active insulin pen needle (TechLite Plus Pen [place]) 32G x 4 mm misc USE FIVE DAILY 100 each 11 024 Active insulin glargine (Lantus SoloStar) 100 UNIT/ML penIndications:Typ e 2 diabetes mellitus with other circulatory complication, with long-term current use of insulin ([facility]) INJECT 35 UNITS SUBCUTANEOUSLY EVERY DAY 15 mL 3 024 Active FREESTYLE LITE test stripIndications:T ype 2 diabetes mellitus with diabetic peripheral angiopathy without gangrene, with long-term current use of insulin ([facility]) TEST BLOOD SUGAR FIVE TIMES DAILY 150 strip 5 024 Active triamcinolone (Kenalog) 0.1 % creamIndications:D yshydrosis Apply topically if needed in the morning and at bedtime (pain and swelling). 30 g 5 024 Active Mounjaro 5 MG/0.5ML solution auto-injectorIndic ations:Type 2 diabetes mellitus with both eyes affected by mild nonproliferative retinopathy without macular edema, with long-term current use of insulin ([facility]) INJECT FIVE MG SUBCUTANEOUSLY ONCE A WEEK 2 mL 2 025 Active FT Earwax Removal 6.5 % otic solutionIndication s:Impacted cerumen of right ear PLACE 5 TO 10 DROPS IN AFFECTED EAR(S) TWICE DAILY FOR FOUR DAYS 15 mL 025 Active Aspirin Adult Low Strength 81 MG EC tabletIndications: Benign essential hypertension TAKE ONE TABLET EVERY MORNING 90 tablet 1 025 Active lidocaine (Lidoderm) 5 % patchIndications:C hronic right shoulder pain,Pain in right shoulder APPLY 1 PATCH TO SKIN. LEAVE ON FOR 12 HOURS, THEN OFF FOR 12 HOURS DIRECTED. 30 patch 3 025 Active acetaminophen (Tylenol 8 Hour) 650 [...] AT BEDTIME 90 capsule 5 025 Active traMADol (Ultram) 50 MG tabletIndications: Chronic right shoulder pain,Pain in right shoulder,Back pain, unspecified back location, unspecified back pain laterality, unspecified chronicity TAKE ONE TABLET EVERY 8 HOURS 84 tablet 025 Active amLODIPine (Norvasc) 10 MG tablet TAKE ONE TABLET EVERY MORNING 90 tablet 1 025 Active atorvastatin (Lipitor) 80 MG tablet TAKE ONE TABLET EVERY NIGHT AT BEDTIME 90 tablet 1 025 Active cilostazol (Pletal) 100 MG tabletIndications: Peripheral arterial occlusive disease (CMS/HCC) TAKE ONE TABLET TWICE DAILY IN THE MORNING AND AT BEDTIME 30 MINUTES BEFORE MEALS OR TWO HOURS BEFORE BREAKFAST AND SUPPER 60 tablet 025 Active amLODIPine (Norvasc) 10 MG tablet TAKE ONE TABLET EVERY MORNING 90 tablet 1 024 08/05 Discontinued atorvastatin (Lipitor) 80 MG tablet TAKE ONE TABLET EVERY NIGHT AT BEDTIME 90 tablet 1 024 08/05 Discontinued cilostazol (Pletal) 100 MG tabletIndications: Peripheral arterial occlusive disease (CMS/HCC) TAKE ONE TABLET TWICE DAILY IN THE MORNING AND AT BEDTIME 30 MINUTES BEFORE A MEAL OR TWO HOURS BEFORE BREAKFAST AND SUPPER 60 tablet 1 025 08/05 Discontinued traMADol (Ultram) 50 MG tabletIndications: Chronic right shoulder pain,Pain in right shoulder,Back pain, unspecified back location, unspecified back pain laterality, unspecified chronicity TAKE ONE TABLET EVERY 8 HOURS 84 tablet 025 07/28 Discontinued Active Problems Problem Noted Date Diagnosed Date [...] chronic back and shoulder pain. Gets regular DIE CASTER follow up and has Narcan prescribed. Has [...] chronic back and shoulder pain. Gets regular DIE CASTER follow up and has Narcan prescribed. Will [...] chronic back and shoulder pain. Gets regular DIE CASTER follow up and has Narcan prescribed. He [...] chronic back and shoulder pain. Gets regular DIE CASTER follow up and has Narcan prescribed. He [...] chronic back and shoulder pain. Gets regular DIE CASTER follow up and has Narcan prescribed. F/U with me in 3 months. He agrees with the plan. Assessment & Plan (10/02/2022 10:49 AM EDT): Prior history suicide attempts and hospitalizations. Still doing extremely well. Hallucinations controlled. Continue Risperidone 3 mg daily. He also takes Tramadol 50 mg TID prn and Gabapentin 600 mg TID for chronic back and shoulder pain. Gets regular DIE CASTER follow up and has Narcan prescribed. F/U [...] Encounters Date Type Department Care Team Description 08/05/2024 Refill [facility] [address] [place] [address] Juan Miguel Tinajero MD Peripheral arterial occlusive disease ([facility]) 07/28/2024 Refill [facility] [address] [place] [address] Juan Miguel Tinajero MD Chronic right shoulder pain; Pain in right shoulder; Back pain, unspecified back location, unspecified back pain laterality, unspecified chronicity 07/08/2024 Refill [facility] [address] [place] [address] Juan Miguel Tinajero MD Complains of low back pain 07/05/2024 Refill [facility] [address] [place] [address] Juan Miguel Tinajero MD Sore throat; Bacterial conjunctivitis; Chronic pain syndrome 06/27/2024 10:20 AM EST Office Visit [facility] [address] [place] [phone] Cameron Henning MD Chronic low back pain with sciatica, sciatica laterality unspecified, unspecified back pain laterality (Primary Dx); Radicular pain of right lower extremity 06/27/2024 Telephone [facility] [address], [place] [phone] Juan Miguel Tinajero MD Walk-In 06/26/2024 Refill [facility] [address], [place] [phone] Juan Miguel Tinajero MD Chronic right shoulder pain; Pain in right shoulder; Back pain, unspecified back location, unspecified back pain laterality, unspecified chronicity 06/13/2024 Refill [facility] [address] [place] [address] Juan Miguel Tinajero MD Sore throat; Bacterial conjunctivitis; Chronic pain syndrome 06/12/2024 Telephone [facility] [address] [place] [phone] Whit Amezcua MD 06/11/2024 9:00 AM EST Clinical Support [facility] [address], [place] [phone] Elsa Barnett RN Chronic pain syndrome 06/11/2024 Telephone [facility] [address] [place] [address] Elsa Barnett RN 06/11/2024 Travel 06/08/2024 Refill [facility] [address], [place] [phone] Jua nMiguel Tinajero MD Chronic right shoulder pain; Pain in right shoulder 06/06/2024 Refill [facility] [address], [place] [phone] Juan Miguel Tinajero MD Peripheral arterial occlusive disease ([facility]) 06/04/2024 3:00 PM EST Office Visit [facility] [address] [place] [address] Whit Amezcua MD Benign essential hypertension (Primary Dx); Impacted cerumen of right ear; Diarrhea, unspecified type 06/04/2024 Travel 06/04/2024 Telephone [facility] [address] [place] [address] Nicole Lugo, JENS Walk-In (Ear discomfort) 06/04/2024 Telephone [facility] [address] [place] [address] Juan Miguel Tinajero MD Walk-In 06/04/2024 Refill [facility] [address] [place] [address] Juan Miguel Tinajero MD Benign essential hypertension 06/03/2024 Refill [facility] [address] [place] [address] Juan Miguel Tinajero MD Impacted cerumen of right ear 06/02/2024 Refill [facility] [address] [place] [address] Juan Miguel Tinajero MD Type 2 diabetes mellitus with both eyes affected by mild nonproliferative retinopathy without macular edema, with long-term current use of insulin ([facility]) 05/30/2024 Telephone [facility] [address] [place], [place] [phone] Juan Miguel Tinajero MD Medication Question 05/29/2024 Telephone [facility] [address] [place] [address] Juan Miguel Tinajero MD Medication Question 05/29/2024 Refill [facility] [address] [place] [address] Juan Miguel Tinajero MD Chronic right shoulder pain; Pain in right shoulder; Back pain, unspecified back location, unspecified back pain laterality, unspecified chronicity 05/23/2024 9:30 AM EST Clinical Support [facility] [address] [place] [address] Trell Hubbard, JENS Impacted cerumen of right ear (Primary Dx); Encounter for immunization 05/23/2024 Travel 05/16/2024 Refill [facility] [address] [place] [address] Juan Miguel Tinajero MD Sore throat; Bacterial conjunctivitis; Chronic pain syndrome 05/15/2024 Telephone [facility] [address] [place] [address] Leana Huizar RN Results 05/14/2024 10:00 AM EST Office Visit [facility] [address] [place] [address] Juan Miguel Tinajero MD Hypertension, unspecified type (Primary Dx); Type 2 diabetes mellitus with hyperglycemia, with long-term current use of insulin ([facility]); Other male erectile dysfunction; Impacted cerumen of right ear; Encounter for immunization; Dyshydrosis 05/14/2024 Travel 05/09/2024 Refill [facility] [address] [place] [address] Juan Miguel Tinajero MD Type 2 diabetes mellitus with diabetic peripheral angiopathy without gangrene, with long-term current use of insulin ([facility]) from Last 3 Months Immunizations Name Administration Dates Next Due Hep B, adult 05/23/2024,08/21/2022,07/24/2022 Influenza Injectable Quadriv alant Preservative Free IIV4 MDCK 04/14/2021 Influenza injectable quadriv alent IIV4 with preservative 04/23/2017,02/17/2016 Influenza injectable quadriv alent preservative free 03/13/2023,02/22/2022,03/31/2020 Influenza, IIV3, injectable 02/23/2014 Influenza, seasonal, injecta ble, preservative free 05/14/2024 Moderna Covid-19 Vaccine 12+ 05/03/2021,09/28/19 21,08/30/2020 Pfizer Covid-19 Vaccine 12+ 05/14/2024, Pfizer Covid-19 Vaccine 12+ Bivalent 02/28/2022 Pneumococcal [...] 9:00 AM EDT Clinical Support [facility] [address] [place] [address] Elsa Barnett, RN [address] [place] [address] 11/19/2024 10:00 AM EDT Office Visit [facility] [address] [place] [address] Liban, [place], OD [address] [place] [address] Health Maintenance Due Date Last Done Comments [...] 03/19/2024 03/19/2023, 02/26, 03/19/2023, Additional history exists Depression Screening 10/29/2024 10/30/2023, 10/30/19 Diabetes: Hemoglobin A1C 11/12/2024 024, 11/01/2023, 06/12/2023, Additional history exists Diabetes: Foot Exam 05/14/2025 05/14/2024, 03/13/2023, 03/13/2023, [...] 145/90(2024 10:18 AM EST) No Juan Cordova PharmD Hemoglobin A1c < 7 Result Component 6.4( 9:31 AM EST) No Juan Cordova PharmD Procedures Procedure Name Priority Date/Time Associated Diagnosis Comments POCT URINALYSIS DIPSTICK Routine 06/27/2024 10:38 AM EST Chronic low back pain with sciatica, sciatica laterality unspecified, unspecified back pain laterality Radicular pain of right lower extremity POCT RACHEL-14 URINE DRUG SCREEN Routine 06/11/2024 9:02 AM EST Chronic pain syndrome AK REMOVAL IMPACTED CERUMEN IRRIGATION/LVG UNILAT Routine 05/23/2024 11:10 AM EST Impacted cerumen of right ear TSH W/REFLEX TO FT4 Routine 05/14/2024 1 0:41 AM EST Type 2 diabetes mellitus with hyperglycemia, with long-term current use of insulin ([facility]) LIPID PANEL, STANDARD Routine 05/14/2024 10:41 AM EST Type 2 diabetes mellitus with hyperglycemia, with long-term current use of insulin ([facility]) COMPREHENSIVE METABOLIC PANEL Routine 05/14/2024 10:41 AM EST Type 2 diabetes mellitus with hyperglycemia, with long-term current use of insulin ([facility]) CBC WITH AUTO DIFFERENTIAL Routine 05/14/2024 10:41 AM EST Type 2 diabetes mellitus with hyperglycemia, with long-term current use of insulin ([facility]) POCT GLYCATED HEMOGLOBIN, TOTAL Routine 05/14/2024 9:31 AM EST Type 2 diabetes mellitus with hyperglycemia, with long-term current use of insulin ([facility]) POCT GLUCOSE Routine 05/14/2024 9:30 AM EST Type 2 diabetes mellitus with hyperglycemia, with long-term current use of insulin ([facility]) COLONOSCOPY Routine 10/05/2022 from Last 3 Months [...] RN - 06/11/2024 9:02 AM EST Lot# [id number] Exp: 05-03-25 Juan Miguel Tinajero MD POINT OF CARE TEST ENTER/ED IT ORDERABLES Final Result * AK REMOVAL IMPACTED CERUMEN IRRIGATION/LVG UNILAT (05/23/2024 11:10 [...] dizziness and incomplete removal ??Alternatives discussed: ??Observation [place] protocol: ??Procedure explained and questions answered to [...] Pt verbalized understanding and agreed to plan. us Juan Miguel Tinajero MD IN CLINIC/BEDSIDE ORDERABLE S Final Result * TSH W/Reflex to FT4 (05/14/2024 10:41 AM EST) TSH reflex Free T4 0.63 0.32 - 4.0 uIU/mL [facility] Blood Venous blood specimen / Unknown 05/14/2024 10:41 AM EST 05/14/2024 2:06 PM EST Juan Miguel Tinajero MD LAB BLOOD ORDERABLES Final Result [facility] [address] [place] [address] [phone] * (ABNORMAL) CBC auto differential (05/14/2024 10:41 AM EST) White Blood Count 6.5 4.8 - 10.8 X10*3/uL [facility] Red Blood Count 4.58(L) 4.60 - 5.80 X10*6/uL [facility] Hemoglobin 12.7(L) 14.0 - 18.0 g/dl [facility] Hematocrit 38.2(L) 42.0 - 52.0 % [facility] Mean Corpuscular Volume 83.4 80.0 - 98.0 fL [facility] Mean Corpuscular Hemoglobin 27.7 27.0 - 33.0 pg [facility] Mean Corpuscular HGB Conc 33.2 31.0 - 36.0 g/dl [facility] Red Cell Distribution Width 15.7 11.0 - 16.0 % [facility] Platelet Count 191 160 - 400 X10*3/uL [facility] Mean Platelet Volume 10.7 9.4 - 12.4 fL [facility] Neutrophils Percent Auto 60.8 45 - 73 % [facility] Imm Gran Pct Auto 0.2 0.0 - 0.4 % [facility] Lymphocytes Percent Auto 26.9 20 - 40 % [facility] Monocytes Percent Auto 7.7 2 - 11 % [facility] Eosinophils Percent Auto 4.1(H) 0 - 4 % [facility] Basophils Percent Auto 0.3 0 - 2 % [facility] NRBC Pct Auto 0.0 0.0 - 0.2 /100WBC [facility] Neutrophils Absolute Auto 4.0 2.0 - 8.3 x10*3/uL [facility] Imm Gran Abs Auto 0.01 0.00 - 0.03 X10*3/uL [facility] Lymphocytes Absolute Auto 1.8 1.2 - 4.9 X10*3/uL [facility] Monocytes Absolute Auto 0.5 0.1 - 1.2 X10*3/uL [facility] Eosinophils Absolute Auto 0.3 0.0 - 0.4 X10*3/uL [facility] Basophils Absolute Auto 0.0 0.0 - 0.2 X10*3/uL [facility] NRBC Abs Auto 0.000 0.0 - 0.012 X10*3/uL [facility] Blood Venous blood specimen / Unknown 05/14/2024 10:41 AM EST 05/14/2024 2:06 PM EST us Juan Miguel Tinajero MD LAB BLOOD ORDERABLES Final Result [facility] [address] [place] [phone] * Lipid Panel, Standard (05/14/2024 10:41 AM EST) Triglycerides 71 <150 mg/dL [facility] Comment:Desirable Triglyceri de: less than 150 mg/dLBorderline High Triglyceride 150-199 mg/dLHigh Triglyceride: 200-499 mg/dLVery High Triglyceride: greater than or equal to 5OO mg/dL Cholesterol 122 <200 mg/dL [facility] Comment:Desirable Cholestero l: less than 200 mg/dLBorderline High Cholesterol: 200-239 mg/dLHigh Cholesterol: greater than 239 mg/dL LDL Cholesterol Calculated 64 <100 mg/dL [facility] Comment:Desirable LDL: less than 100 mg/dLNear Optimal/Above Optimal LDL: 110- 129 mg/dLBorderline High LDL: 130-159 mg/dLHigh LDL: 160-189 mg/dLVery High LDL: greater than or equal to 190 mg/dL HDL Cholesterol 44 >40 mg/dL [facility] Comment:Desirable HDL: great er than 40 mg/dL Note: This HDL assay may give artificially low results in patients with liver disease. Blood Venous blood specimen / Unknown 05/14/2024 10:41 AM EST 05/14/2024 2:06 PM EST us Juan Miguel Tinajero MD LAB BLOOD ORDERABLES Final Result Performing Organization Address City/[facility]/ZIP Co de Phone Number [facility] [address] [place], [place] [phone] * (ABNORMAL) Comprehensive Metabolic Panel (05/14/2024 10:41 AM EST) Sodium 141 135 - 145 mmol/L [facility] Potassium 3.8 3.3 - 5.1 mmol/L [facility] Chloride 110(H) 96 - 108 mmol/L [facility] Carbon Dioxide 26 22 - 29 mmol/L [facility] Anion Gap 9(L) 12 - 20 [facility] Urea Nitrogen (BUN) 15 9 - 16 mg/dL [facility] Creatinine, Serum 1.05 0.5 - 1.4 mg/dL [facility] Estimated Glomerular Filt Rate >60 [facility] Comment:Chronic Kidney Disea se: Estimated GFR < 60 mL/min/[id number] Kidney Disease: Estimated GFR < 15 mL/min/1.73m2 Glucose 130(H) 60 - 115 mg/dL [facility] Calcium 8.3(L) 8.4 - 10.2 mg/dL [facility] Bilirubin, Total 0.4 0.0 - 1.0 mg/dL [facility] Aspartate Amino Transferase 24 5 - 37 U/L [facility] Alanine Aminotransferase 20 0 - 40 U/L [facility] Total Protein 7.4 6.5 - 8.0 g/dL [facility] Albumin Level 4.1 3.5 - 5.0 g/dL [facility] Alkaline Phosphatase 73 39 - 117 U/L [facility] Blood Venous blood specimen / Unknown 05/14/2024 10:41 AM EST 05/14/2024 2:06 PM EST us Juan Miguel Tinajero MD LAB BLOOD ORDERABLES Final Result Performing Organization Address City/[facility]/ZIP Co de Phone Number [facility] [address] [place] [address] [phone] * (ABNORMAL) POCT A1C (05/14/2024 9:31 AM EST) Hemoglobin A1C 6.4(A) 4.0 - 6.0 % QC Media Lot # Comment:[id number] Lot# Expiration Date Comment:12/26/2025 Blood 05/14/2024 9:31 AM EST Juan Miguel Tinajero MD POINT OF CARE TEST ENTER/ED IT ORDERABLES Final Result * (ABNORMAL) POCT glucose manually resulted (05/14/2024 9:30 AM EST) Glucose Blood, POC 194 60 - 200 mg/dL [employer] Lot # Comment:[id number] Lot# Expiration Date Comment:09/02/2024 Blood Capillary blood [...] Most Recently Relevant to Health Maintenance Insurance [facility] STAND ADULT Care Teams Veterinary Virologist Relationship Specialty Start Date End Date Juan Miguel Tinajero MD [address] [place] [address] PCP - General Internal Medicine 05/28/18 Juan Cordova PharmD [address] [place] [address] Pharmacist Internal Medicine 07/14/22 Yvonne Knox Employee Training SpecialistOrthopedic Designer 02/15/23 Yvonne Knox Employee Training SpecialistOrthopedic Designer 04/09/24
--- OUTSIDE RECORDS SUMMARY | 2024-08-07 11:21 | XMS_ITS | Encounter Summary ---
Author Organization [employer] Address [address] [facility] [address] [place] [address] Care Team Providers Care Chainstitch Felled Seam Operator Name Role Phone Juan Miguel Tinajero MD Primary Care Provider [phone] Juan Cordova PharmD Unavailable Unavail able Reason for Visit * Reason Comments Med Refill Encounter Details Date Type Department Care Team ([facility] st Contact Info) Description 09/21/2023 Refill [facility] [address] [place], [place] [phone] Juan Miguel Tinajero MD [address] [place] [address] Chronic right shoulder pain; Pain in right [...] Description 09/09/2024 9:00 AM EDT Clinical Support [facility] [address] [place] [address] Elsa Barnett, RN [address] [place] [address] 11/19/2024 10:00 AM EDT Office Visit [facility] [address] [place] [address] Liban, [place], OD [address] [place] [address] documented as of this encounter Goals Goal [...] documented as of this encounter Care Teams Chainstitch Felled Seam Operator Relationship Specialty Start Date End Date Juan Miguel Tinajero MD [address] [place] [address] PCP - General Internal Medicine 05/28/18 Juan Cordova PharmD [address] [place] [address] Pharmacist Internal Medicine 07/14/22 Yvonne Knox Teacher Of The Hearing ImpairedPipe Stem Sawyer 02/15/23 Yvonne Knox Teacher Of The Hearing ImpairedPipe Stem Sawyer 04/09/24 documented as of this encounter
--- OUTSIDE RECORDS SUMMARY | 2024-08-07 11:21 | XMS_ITS | Encounter Summary ---
Author Organization [employer] Address 75 [facility] 7t [place] [address] Care Team Providers Care Stage Technician Name Role Phone Juan Miguel Tinajero MD Primary Care Provider +1- [phone] Juan Cordova PharmD Unavailable Unavail able Encounter Details Date Type Department Care Team ([facility] st Contact Info) Description 09/26/2023 Orders Only [facility] CH[facility] MED & PEDS 505 [place], [place] [phone] Jaun Miguel Tinajero MD [address] [place] [address] Social History Tobacco Use Types Packs/Day Years [...] 9:00 AM EDT Clinical Support [facility] CHC MED & PEDS 505 [place] [address] Elsa Barnett, JENS 505 [place] [address] 11/19/2024 10:00 AM EDT Office Visit [facility] OPTOMETRY [address] [place] [address] Oneida Louie, OD [address] [place] [address] documented as of this encounter Goals Goal [...] documented as of this encounter Care Teams Stage Technician Relationship Specialty Start Date End Date Juan Miguel Tinajero MD 505 [place] [address] PCP - General Internal Medicine 05/28/18 Juan Cordova, PharmD [address] [place] [address] DAKOTA Garcia [address] Pharmacist Internal Medicine 07/14/22 Yvonne Knox Cutter Operator TileInspector Mechanical 02/15/23 Yvonne Knox Cutter Operator TileInspector Mechanical 04/09/24 documented as of this encounter
--- OUTSIDE RECORDS SUMMARY | 2024-08-07 11:21 | XMS_ITS | Encounter Summary ---
Author Organization [employer] Address 75 [facility] 7t [place] [address] Care Team Providers Care Showroom Executive Director Name Role Phone Juan Miguel Tinajero MD Primary Care Provider +1 [phone] Juan Cordova PharmD Unavailable Unavail able Reason for Visit * Reason Comments Med Refill Encounter Details Date Type Department Care Team ([facility] Contact Info) Description 03/28/2024 Refill [facility] CHC MED & PEDS 505 [place], [place] [phone] Juan Miguel Tinajero MD 505 [place] [address] Sore throat; Bacterial conjunctivitis; Chronic pain syndrome [...] Description 09/09/2024 9:00 AM EDT Clinical Support [facility] CHC MED & PEDS 505 [place] [address] Elsa Barnett, RN 505 [place] [address] 11/19/2024 10:00 AM EDT Office Visit [facility] OPTOMETRY [address] [place] [address] Liban, Oneida, OD [address] [place] [address] documented as of this encounter Goals Goal [...] documented as of this encounter Care Teams Showroom Executive Director Relationship Specialty Start Date End Date Juan Miguel Tinajero MD 505 [facility] [place] [address] PCP - General Internal Medicine 05/28/18 Juan Cordova PharmD 505 [facility] [place] [address] Pharmacist Internal Medicine 07/14/22 Yvonne Knox Handstitching Machine Armhole FellerAccordion Repairer 02/15/23 Yvonne Knox Handstitching Machine Armhole FellerAccordion Repairer 04/09/24 documented as of this encounter
--- OUTSIDE RECORDS SUMMARY | 2024-08-07 11:21 | XMS_ITS | Clinical Summary ---
Author Organization [facility] Address [address] [facility] 20 0 [place] [address] Phone Care Team Providers Care Venetian Blind Worker Name Role Phone Juan Miguel Tinajero MD Primary Care Provider +1- [phone] Allergies No known active allergies Medications Acetaminophen [...] chronic back and shoulder pain. Gets regular WET ROLLER follow up and has Narcan prescribed. F/U [...] Office Visit [facility] [address] [address] Aj Grajeda MD [address] [address] Health Maintenance Due Date Last [...] AM EDT) Hemoglobin A1C 6.6(H) (4.0-5.6) % [facility] Comment: MONITORING: In known diabetic patients, hemoglobin A1c targets should be discussed with health care provider. DIAGNOSTIC USE: ??The [place] Diabetes Association (ADA) and the World Health [...] Supplement 1 Testing performed or reported by [facility], a Service of [facility], [address] [place] [address] aZchary Sanders MD, Community Assistant [facility]# [id number] Blood (Blood, Venous) 03/21/2023 8:20 AM EDT 03/21/2023 8:25 AM EDT us Aj Grajeda MD LAB BLOOD ORDERABLES Final Re sult [facility] from Last 3 Months or Most Recently Relevant to Health Maintenance Insurance MEDICAID CT MEDICAID CT Care Teams Venetian Blind Worker Relationship Specialty Start Date End Date Juan Miguel Tinajero MD [address] [place] [address] PCP - General Internal Medicine 02/11/21
--- OUTSIDE RECORDS SUMMARY | 2024-08-07 11:21 | XMS_ITS | Encounter Summary ---
Author Organization [employer] Address 75 [facility] 7t [place] [address] Care Team Providers Care Recreation Facility Attendant Name Role Phone Juan Miguel Tinajero MD Primary Care Provider +1 [phone] Juan Cordova PharmD Unavailable Unavail able Encounter Details Date Type Department Care Team ([facility] st Contact Info) Description 10/02/2023 Telephone [facility] MEDICINE 230 [place] [address] Juan Miguel Tinajero MD 505 [place], [place] [phone] Social History Tobacco Use Types Packs/Day Years [...] 9:00 AM EDT Clinical Support [facility] CHC MED & PEDS 505 [place] [address] Elsa Barnett RN 505 [place] [address] 11/19/2024 10:00 AM EDT Office Visit [facility] OPTOMETRY [address] [place] [address] Oneida Louie, OD [address] [place] [address] documented as of this encounter Goals Goal Patient Goal Type Associated Problems Recent Progress Patient-Stated? Author Blood Pressure < 140/90 Blood Pressure 145/90(2024 10:18 AM EST) No Dellogono, Juan, PharmD Hemoglobin A1c < 7 Result Component 6.4( 4 9:31 AM EST) No Dellogono, Juan, PharmD documented as of this encounter Visit Diagnoses Not on filedocumented in this encounter Additional Health Concerns Assessment Noted Time PHQ-9 Depression Total Score: 1 08/30/19 24 1:41 PM EDT documented as of this encounter Care Teams Recreation Facility Attendant Relationship Specialty Start Date End Date Juan Miguel Tinajero MD 505 [place] [address] PCP - General Internal Medicine 05/28/18 Juan Cordova, bEonieD [address] [place] [address] Pharmacist Internal Medicine 07/14/22 Yvonne Knox Ob GynSystems Integration Advisor 02/15/23 Yvonne Knox Ob GynSystems Integration Advisor 04/09/24 documented as of this encounter
--- OUTSIDE RECORDS SUMMARY | 2024-08-07 11:21 | XMS_ITS | Encounter Summary ---
Author Organization [employer] Address 75 [facility] 7t [place] [address] Care Team Providers Care Squaring Shear Operator Name Role Phone Juan Miguel Tinajero MD Primary Care Provider +1 [phone] Juan Cordova PharmD Unavailable Unavail able Reason for Visit * Reason Comments Med Refill Encounter Details Date Type Department Care Team ([facility] st Contact Info) Description 07/28/2024 Refill [facility] CHC MED & PEDS 505 [place], [place] [phone] Juan Miguel Tinajero MD 505 [place] [address] Chronic right shoulder pain; Pain in right [...] Description 09/09/2024 9:00 AM EDT Clinical Support [facility] CHC MED & PEDS 505 [place] [address] Elsa Barnett, RN 505 [place] [address] 11/19/2024 10:00 AM EDT Office Visit [facility] OPTOMETRY [address] [place] [address] Oneida Louie, OD [address] [place] [address] documented as of this encounter Goals Goal Patient Goal Type Associated Problems Recent Progress Patient-Stated? Author Blood Pressure < 140/90 Blood Pressure 145/90(2024 10:18 AM EST) No Juan Cordova, PharmD Hemoglobin A1c < 7 Result Component 6.4( 9:31 AM EST) No uJan Cordova, PharmD documented as of this encounter Visit Diagnoses Diagnosis Chronic right shoulder pain Pain in joint, shoulder region Pain in right shoulder Back pain, unspecified back location, unspecified back pain laterality, unspecified chronicity documented in this encounter Additional Health Concerns Assessment Noted Time PHQ-9 Depression Total Score: 0 10/30/19 10:10 AM EDT documented as of this encounter Care Teams Squaring Shear Operator Relationship Specialty Start Date End Date Juan Miguel Tinajero MD 505 [place] [address] PCP - General Internal Medicine 05/28/18 Juan Cordova PharmD 505 [place] [address] Pharmacist Internal Medicine 07/14/22 Yvonne Knox Records ManagerLead Generation Marketing Manager 02/15/23 Yvonne Knox Records ManagerLead Generation Marketing Manager 04/09/24 documented as of this encounter
--- OUTSIDE RECORDS SUMMARY | 2024-08-07 11:22 | XMS_ITS | Encounter Summary ---
Author Organization [employer] Address [address] [facility] 7t [place] [address] Care Team Providers Care Rubber Stamp Die Inspector Name Role Phone Juan Miguel Tinajero MD Primary Care Provider +1- [phone] Juan Cordova PharmD Unavailable Unavail able Reason for Visit * Reason Comments Med Refill Encounter Details Date Type Department Care Team ([facility] Contact Info) Description 02/19/2023 Refill [facility] MED & PEDS 505 [place] [address] Juan Miguel Tinajero MD 505 [place] [address] Peripheral arterial occlusive disease (CMS/HCC) Social History [...] Upcoming Encounters Date Type Department Care Team ([facility] Contact Info) Description 09/09/2024 9:00 AM EDT Clinical Support [facility] MED & PEDS 505 [place] [address] Elsa Barnett, RN [address] [place] [address] 11/19/2024 10:00 AM EDT Office Visit [facility] OPTOMETRY [address] [place] [address] Oneida Louie, OD [address] [place] [address] documented as of this encounter Goals Goal [...] documented as of this encounter Care Teams Rubber Stamp Die Inspector Relationship Specialty Start Date End Date Juan Miguel Tinajero MD 505 [place] [address] PCP - General Internal Medicine 05/28/18 Juan Cordova, PharmD 505 [place] [address] Pharmacist Internal Medicine 07/14/22 Yvonne Knox Usps Letter CarrierEmblem Drawer In 02/15/23 Yvonne Knox Usps Letter CarrierEmblem Drawer In 04/09/24 documented as of this encounter
--- OUTSIDE RECORDS SUMMARY | 2024-08-07 11:22 | XMS_ITS | Encounter Summary ---
Author Organization [employer] Address 75 [facility] 7t [place] [address] Care Team Providers Care Bed And Breakfast Operator Name Role Phone Juan Miguel Tinajero MD Primary Care Provider +1- [phone] Jaun Cordova PharmD Unavailable Unavail able Encounter Details Date Type Department Care Team (Latest Contact Info) Description 03/17/2022 Abstract [facility] CONVERSIONS Dental, Provider, DDS Social History [...] Description 09/09/2024 9:00 AM EDT Clinical Support [facility] CHC MED & PEDS 505 [place] [address] Elsa Barnett, JENS 505 [place] [address] 11/19/2024 10:00 AM EDT Office Visit [facility] OPTOMETRY [address] [place] [address] Oneida Louie, OD [address] [place] [address] documented as of this encounter Visit Diagnoses Not on filedocumented in this encounter Care Teams Bed And Breakfast Operator Relationship Specialty Start Date End Date Juan Miguel Tinajero MD 505 [facility] [place] [address] PCP - General Internal Medicine 05/28/18 Juan Cordova, Benjamin 505 [facility] [place] [address] Pharmacist Internal Medicine 07/14/22 Yvonne Knox Pickle Solution MakerFood Technician 02/15/23 Yvonne Knox Pickle Solution MakerFood Technician 04/09/24 documented as of this encounter
--- OUTSIDE RECORDS SUMMARY | 2024-08-07 11:22 | XMS_ITS | Encounter Summary ---
Author Organization [employer] Address [address] [facility] 7t [place] [address] Care Team Providers Care Inspector Assembly Name Role Phone Juan Miguel Tinajero MD Primary Care Provider +1 [phone] Juan Cordova PharmD Unavailable Unavail able Encounter Details Date Type Department Care Team (Late st Contact Info) Description 03/27/2023 Abstract [facility] MEDICINE 230 [place] [address] Juan Miguel Tinaejro MD 505 [place], [place] [phone] Social History Tobacco Use Types Packs/Day Years [...] Description 09/09/2024 9:00 AM EDT Clinical Support [facility] CHC MED & PEDS 505 [place] [address] Elsa Barnett, RN 505 [place], [place] [phone] 11/19/2024 10:00 AM EDT Office Visit [facility] OPTOMETRY [address] [place] [address] Liban, Oneida, OD [address] [place] [address] documented as of this encounter Goals Goal Patient Goal Type Associated Problems Recent Progress Patient-Stated? Author Blood Pressure < 140/90 Blood Pressure 145/90(2024 10:18 AM EST) No DelKaleb delgadois, PharmD Hemoglobin A1c < 7 Result Component 6.4( 9:31 AM EST) No Dellogono, Juan, PharmD documented as of this encounter Visit Diagnoses Not on filedocumented in this encounter Additional Health Concerns Assessment Noted Time PHQ-9 Depression Total Score: 1 01/03/20 23 9:06 AM EDT documented as of this encounter Care Teams Inspector Assembly Relationship Specialty Start Date End Date Juan Miguel Tinajero MD 505 [place] [address] PCP - General Internal Medicine 05/28/18 Juan Cordova, PharmD [address] [place] [address] Pharmacist Internal Medicine 07/14/[address] [employer] Law ClerkAdministrative Library Assistant 02/15/[address] [employer] Law ClerkAdministrative Library Assistant 04/09/24 documented as of this encounter
--- OUTSIDE RECORDS SUMMARY | 2024-08-07 11:22 | XMS_ITS | Encounter Summary ---
Author Organization [employer] Address [address] [facility] 7t [place] [address] Care Team Providers Care Package Crimper Name Role Phone Juan Miguel Tinajero MD Primary Care Provider +1 [phone] Juan Cordova PharmD Unavailable Unavail able Reason for Visit * Reason Comments Med Refill Encounter Details Date Type Department Care Team ([facility] Contact Info) Description 07/05/2024 Refill [facility] CHC MED & PEDS 505 [place], [place] [phone] Juan Miguel Tinajero MD 505 [place] [address] Sore throat; Bacterial conjunctivitis; Chronic pain syndrome [...] Description 09/09/2024 9:00 AM EDT Clinical Support [facility] CHC MED & PEDS 505 [place] [address] Elsa Barnett, JENS 505 [place] [address] 11/19/2024 10:00 AM EDT Office Visit [facility] OPTOMETRY [address] [place] [address] Oneida Louie, OD [address] [place] [address] documented as of this encounter Goals Goal [...] as of this encounter Care Teams Package Crimper Relationship Specialty Start Date End Date Juan Miguel Tinajero MD 505 [place] [address] PCP - General Internal Medicine 05/28/18 Juan Cordova PharmD 505 [place] [address] Pharmacist Internal Medicine 07/14/22 Yvonne Knox Account Management AssistantSpotter Driver 02/15/23 Yvonne Knox Account Management AssistantSpotter Driver 04/09/24 documented as of this encounter
--- OUTSIDE RECORDS SUMMARY | 2024-08-07 11:22 | XMS_ITS | Encounter Summary ---
Author Organization [employer] Address 75 [facility] 7t [place] [address] Care Team Providers Care Surveying Technician Name Role Phone Juan Miguel Tinajero MD Primary Care Provider +1- [phone] Juan Cordova PharmD Unavailable Unavail able Encounter Details Date Type Department Care Team ([facility] st Contact Info) Description 06/14/2023 Orders Only [facility] CHC MED & PEDS 505 [place], [place] [phone] Juan Miguel Tinajero MD 505 [place] [address] Benign essential hypertension Social History Tobacco Use [...] Upcoming Encounters Date Type Department Care Team ([facility] st Contact Info) Description 09/09/2024 9:00 AM EDT Clinical Support [facility] CHC MED & PEDS 505 [place] [address] Elsa Barnett, JENS 505 [place] [address] 11/19/2024 10:00 AM EDT Office Visit [facility] OPTOMETRY [address] [place] [address] Oneida Louie, OD [address] [place] [address] documented as of this encounter Goals Goal [...] documented as of this encounter Care Teams Surveying Technician Relationship Specialty Start Date End Date Juan Miguel Tinajero MD 505 [place] [address] PCP - General Internal Medicine 05/28/18 Juan Cordova, EbonieD 505 [facility] DAK[place] Garcia [address] Pharmacist Internal Medicine 07/14/22 Yvonne Knox Transportation AttendantClinical Rehabilitation Coordinator 02/15/23 Yvonne Knox Transportation AttendantClinical Rehabilitation Coordinator 04/09/24 documented as of this encounter
--- OUTSIDE RECORDS SUMMARY | 2024-08-07 11:22 | XMS_ITS | Encounter Summary ---
Author Organization [employer] Address 75 [facility] 7[address] [place] [address] Care Team Providers Care Manager Of Corporate Name Role Phone Juan Miguel Tinajero MD Primary Care Provider +1- [phone] Juan Cordova PharmD Unavailable Unavail able Encounter Details Date Type Department Care Team (Late Contact Info) Description 04/24/2022 Abstract [facility] ADULT DENTAL 505 [place] [address] Dental, Provider, DDS Social History Tobacco Use [...] 9:00 AM EDT Clinical Support [facility] MED & PEDS 505 [place] [address] Elsa Barnett, RN 505 [place] [address] 11/19/2024 10:00 AM EDT Office Visit [facility] OPTOMETRY [address] [place] [address] Oneida Louie, OD [address] [place] [address] documented as of this encounter Procedures Procedure [...] on filedocumented in this encounter Care Teams Manager Of Corporate Relationship Specialty Start Date End Date Juan Miguel Tinajero MD 505 [place] [address] PCP - General Internal Medicine 05/28/18 Juan Cordova PharmD 505 [place] [address] Pharmacist Internal Medicine 07/14/22 Yvonne Knox Property SpecialistDeputy City Clerk 02/15/23 Yvonne Knox Property SpecialistDeputy City Clerk 04/09/24 documented as of this encounter
--- OUTSIDE RECORDS SUMMARY | 2024-08-07 11:22 | XMS_ITS | Encounter Summary ---
Author Organization [employer] Address [address] [facility] 7t [place] [address] Care Team Providers Care Beauty Parlor Cleaner Name Role Phone Juan Miguel Tinajero MD Primary Care Provider +1 [phone] Juan Cordova PharmD Unavailable Unavail able Reason for Visit * Reason Comments Med Refill Encounter Details Date Type Department Care Team ([facility] Contact Info) Description 06/28/2023 Refill [facility] CHC MED & PEDS 505 [place], [place] [phone] Juan Miguel Tinajero MD 505 [place] [address] Moderate persistent asthma without complication Social History [...] 9:00 AM EDT Clinical Support [facility] CHC MED & PEDS 505 [place] [address] Elsa Barnett RN 505 [place] [address] 11/19/2024 10:00 AM EDT Office Visit [facility] OPTOMETRY [address] [place] [address] Liban, Oneida, OD [address] [place] [address] documented as of this encounter Goals Goal [...] documented as of this encounter Care Teams Beauty Parlor Cleaner Relationship Specialty Start Date End Date Juan Miguel Tinajero MD 505 [facility] [address] PCP - General Internal Medicine 05/28/18 Juan Cordova, Benjamin 505 [place] [address] Pharmacist Internal Medicine 07/14/22 Yvonne Knox Motor Coach SupervisorDirector Revenue 02/15/23 Yvonne Knox Motor Coach SupervisorDirector Revenue 04/09/24 documented as of this encounter
--- OUTSIDE RECORDS SUMMARY | 2024-08-07 11:22 | XMS_ITS | Encounter Summary ---
Author Organization [employer] Address [address] [facility] [address] [place] [address] Care Team Providers Care Shear Operator Automatic Name Role Phone Juan Miguel Tinajero MD Primary Care Provider +1- [phone] Juan Cordova PharmD Unavailable Unavail able Encounter Details Date Type Department Care Team ([facility] Contact Info) Description 05/05/2022 Orders Only [facility] MEDICINE 230 [place], [place] [phone] Juan Miguel Tinajero MD 505 [place] [address] Social History Tobacco Use Types Packs/Day Years [...] Upcoming Encounters Date Type Department Care Team ([facility] Contact Info) Description 09/09/2024 9:00 AM EDT Clinical Support [facility] CHC MED & PEDS 505 [place] [address] Elsa Barnett, JENS [address] [place] [address] 11/19/2024 10:00 AM EDT Office Visit [facility] OPTOMETRY [address] [place] [address] Oneida Louie, OD [address] [place] [address] documented as of this encounter Goals Goal Patient Goal Type Associated Problems Recent Progress Patient-Stated? Author Hemoglobin A1c < 7 Result Component 6.4(05/14/2024 9:31 AM EST) No Juan Cordova, PharmD documented as of this encounter Visit Diagnoses Not on filedocumented in this encounter Care Teams Shear Operator Automatic Relationship Specialty Start Date End Date Juan Miguel Tinajero MD 505 [place] [address] PCP - General Internal Medicine 05/28/18 Juan Cordova, PharmD 505 [place] [address] Pharmacist Internal Medicine 07/14/22 Yvonne Knox Fairing ManRecords Management Manager 02/15/23 Yvonne Knox Fairing ManRecords Management Manager 04/09/24 documented as of this encounter
--- OUTSIDE RECORDS SUMMARY | 2024-08-07 11:22 | XMS_ITS | Encounter Summary ---
Author Organization [employer] Address 75 [facility] 7t [place] [address] Care Team Providers Care Toll Testboard Worker Name Role Phone Juan Miguel Tinajero MD Primary Care Provider +1 [phone] Juan Cordova PharmD Unavailable Unavail able Reason for Visit * Reason Comments Med Refill Encounter Details Date Type Department Care Team ([facility] Contact Info) Description 07/08/2024 Refill [facility] CHC MED & PEDS 505 [place], [place] [phone] Juan Miguel Tinajero MD 505 [place] [address] Complains of low back pain Social History [...] Description 09/09/2024 9:00 AM EDT Clinical Support [facility] CHC MED & PEDS [address] [place] [address] Elsa Barnett, RN 505 [place] [address] 11/19/2024 10:00 AM EDT Office Visit [facility] OPTOMETRY [address] [place] [address] Oneida Louie, OD [address] [place] [address] documented as of this encounter Goals Goal Patient Goal Type Associated Problems Recent Progress Patient-Stated? Author Blood Pressure < 140/90 Blood Pressure 145/90(2024 10:18 AM EST) No DelJuan delgado, PharmD Hemoglobin A1c < 7 Result Component 6.4( 9:31 AM EST) No DellogKaleb mtzis, PharmD documented as of this encounter Visit Diagnoses Diagnosis Complains of low back pain documented in this encounter Additional Health Concerns Assessment Noted Time PHQ-9 Depression Total Score: 0 10/30/19 10:10 AM EDT documented as of this encounter Care Teams Toll Testboard Worker Relationship Specialty Start Date End Date Juan Miguel Tinajero MD 505 [facility] [place] [address] PCP - General Internal Medicine 05/28/18 Juan Cordova PharmD 505 [facility] [place] [address] Pharmacist Internal Medicine 07/14/22 Yvonne Knox Pourer Crane LadleRental Sales Agent 02/15/23 Yvonne Knox Pourer Crane LadleRental Sales Agent 04/09/24 documented as of this encounter
== END ==
LOC: HO.CARD 09:32
PROVIDERS: PCP Internal Medicine; Visit Provider Internal Medicine Cardiovascular Disease
DX: I20.89 Other forms of angina pectoris (principal)
CPT/HCPCS: 93017; J0280; J2785

== ENCOUNTER → 2024-08-07 09:35 | Outpatient (BNV) | payer MEDICAID, SELFPAY | PROVIDERS: PCP Internal Medicine | DX: R07.9 Chest pain, unspecified (principal) | CPT/HCPCS: 78452; 93016; 93018 ==

== ENCOUNTER 2024-08-13 13:28 | Outpatient (AMB) | payer MEDICAID, SELFPAY ==
--- NOTE | 2024-08-13 13:48 | A.OFFVIS_ITS ---
Intake Visit Reasons: 3M follow up Intake Note: Patient presents today for 3 month follow up Urology Medications: none Blood Thinner: aspirin Cold Saw Operator Required: Yes Cold Saw Operator Name: [id number] Accompanied by: Self / Same As Patient Allergies No Known Allergies Allergy (Verified 08/13/24 14:19) Medication List - Last Reconciled 08/13/24 by OLAF Nelson acetaminophen 1,000 mg PO Q6H PRN albuterol sulfate 5 mg inhalation Q4H PRN amlodipine (Norvasc) 10 mg PO DAILY aspirin (Adult Low Dose Aspirin) 81 mg PO DAILY atorvastatin 80 mg PO BEDTIME bisacodyl (Dulcolax (bisacodyl)) 10 mg (2 x 5 mg) PO BEDTIME bisacodyl (Dulcolax (bisacodyl)) 20 mg (4 x 5 mg) PO ONCE 1 day blood sugar diagnostic (FreeStyle Lite Strips) As directed carvedilol 6.25 mg PO BID cholecalciferol (vitamin D3) 50 mcg PO QAM cilostazol 100 mg PO BID docusate sodium (Colace) 100 mg PO BID 30 days famotidine (Pepcid) 20 mg PO BEDTIME fluticasone propionate 110 mcg/actuation 2 puffs inhalation BID gabapentin 300 mg PO DAILY glucose (Dex4 Glucose) 8 grams PO Q15M PRN insulin glargine (Lantus Solostar U-100 Insulin) 34 units subcut QPM lancets (TRUEplus Lancets) As directed pantoprazole 20 mg PO QAM pen needle, diabetic (Pentips Pen Needle) As directed polyethylene glycol 3350 17 grams PO DAILY risperidone 3 mg PO BEDTIME tirzepatide (Mounjaro) 5 mg subcut QWEEK HPI Comments Details: Osvaldo is a pleasant 64-year-old Martiniquais speaking male patient of Dr Tinajero. He has a past medical history of chronic idiopathic constipation, RI, diabetes, PVD, CAD, and elevated PSA. He presents to the office today for follow-up of his ED. in discussion with the patient today he reports to be doing and feeling well. He reports having trialed multiple penile injections for ED since his last office visit here in does not feel he has had any improvement in his erectile dysfunction. He has previously trialed daily dosing of tadalafil with p.r.n. Cialis and or Viagra on demand without improvement. We discussed at length potential causes of ED as well as further treatment options and risks and benefits of these treatment options. Previous workup has included: PSAs: 01/15 0.2, 07/19 0.2, 07/20 0.2, 09/18 0.2 Testosterone: 06/20 395 Free testosterone: 06/20 53.3 A1c: 12/15 9.7%, 06/20 5.6 Discussed at length potential causes for erectile dysfunction. Discussed at length importance of managing diabetes for improvement in erectile dysfunction as well as for overall health and well being. When asked he denies urinary urgency, urinary frequency, incontinence, nocturia, hematuria, dysuria, foul smelling urine, changes to urinary stream, flank pain, fever, and or chills. In office urinalysis results reviewed with the patient today. We discussed 3+ protein however patient reports following up with Dr. Wilkinson for this ongoing issue. He is happy with his current voiding parameters. He otherwise offers no other issues or concerns at this time. [facility] Medical History Arthritis Asthma Peripheral arterial occlusive disease Hyperlipidemia IBS (irritable bowel syndrome) Benign prostatic hyperplasia without lower urinary tract symptoms GERD (gastroesophageal reflux disease) Chronic kidney disease Acute kidney failure Abdominal bloating Painful arc syndrome of right shoulder Chronic idiopathic constipation Tubular adenoma Myocardial infarct, old Diabetes PVD (peripheral vascular disease) CAD (coronary artery disease) Family history of prostate cancer Scrotal swelling Elevated PSA Surgical History Hx of aorto-femoral bypass History of coronary artery stent placement Hx of coronary angioplasty Hx of ligation of vein History of esophagogastroduodenoscopy (EGD) Hx of colonoscopy Hx of arthroscopic knee surgery History of surgery History of vascular surgery History of cardiac cath Family History Maternal Grandmother Diabetes Paternal Grandmother Diabetes Brother Diabetes Mother No problems noted. 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 home services: Yes ([employer]) Alcohol intake: never Patient Tobacco Use Status: Former Tobacco user Years Smoked: 35+ Current occupational status: disabled Current occupation: right hand dominant Review of Systems Const All systems reviewed & are unremarkable except as noted in HPI and below Reports as per HPI Eyes Reports no additional complaints ENT Reports no additional complaints Card Reports as per HPI Resp Reports no additional complaints GI Reports as per HPI Reports as per HPI Musc Reports as per HPI Neuro Reports no additional complaints Psych Reports no additional complaints Endo Reports as per HPI Shan/Lymph Reports no additional complaints Aller/Immun Reports no additional complaints Physical Exam Const General: cooperative, healthy appearing, comfortable, no acute distress, well developed, alert and awake Nutritional Appearance: overweight Orientation/consciousness: patient oriented x3 Limitations: no limitations HEENT Head: Yes normal to inspection, Yes normocephalic and Yes atraumatic Ears: hearing grossly normal bilaterally Eyes General: appearance normal, both eyes and all related structures Neck Neck: Yes normal visual inspection and Yes trachea midline Chest Chest palpation & inspection: normal inspection of the chest Resp Effort & Inspection: normal respiratory effort and able to speak in complete sentences Cardio Rate: regular rate GI Inspection: Yes normal to inspection General: Yes no CVA tenderness Penis: normal penis and circumcised Back/Spine/Pelvis Back: no CVA tenderness Skin General skin exam: no rashes or lesions noted Neuro General: patient oriented x3 Extrem General: Yes normal to inspection Psych Appearance: grossly normal and well kempt Mental Status: mental status grossly normal Speech and movement: Normal speech and movement present and Clear speech present Affect: normal affect Attitude: cooperative Thought process: Normal thought process present Thought content: Normal thought content present Insight: Fair insight present (Psych) Judgement: Fair judgement present (Psych) Results AMB Urinalysis, Automated UA Leukoctes 0 Maureen/uL Last Edit by Reanna Gonzalez on 08/13/24 14:02 UA Nitrite Negative Last Edit by Reanna Gonzalez on 08/13/24 14:02 UA Urobilinogen 3.5 mg/dL Last Edit by Reanna Gonzalez on 08/13/24 14:02 UA Protein 3.0 mg/dL Last Edit by Reanna Carlos on 08/13/24 14:02 UA pH 5.5 Last Edit by Reanna Blacktiz on 08/13/24 14:02 UA Blood 0 Dhiraj/uL Last Edit by Reanna Blacktiz on 08/13/24 14:02 UA Specific Woodward 1.015 Last Edit by Reanna Blacktiz on 08/13/24 14:02 UA Ketone Negative Last Edit by Reanna Blacktiz on 08/13/24 14:02 UA Bilirubin 0 mg/dL Last Edit by Reanna Blacktiz on 08/13/24 14:02 UA Glucose 0 mg/dL Last Edit by Reanna Blacktiz on 08/13/24 14:02 Results Reviewed Results Reviewed: Laboratory Last Values Urine pH (Auto) 5.5 08/13/24 13:35 Specific Woodward (Auto) 1.015 08/13/24 13:35 Urine Protein (Auto) 3.0 mg/dL 08/13/24 13:35 Glucose (UA)(Auto) 0 mg/dL 08/13/24 13:35 Urine Ketones (Auto) Negative 08/13/24 13:35 Urine Blood (Auto) 0 Dhiraj/uL 08/13/24 13:35 Urine Nitrite (Auto) Negative 08/13/24 13:35 Urine Bilirubin (Auto) 0 mg/dL 08/13/24 13:35 Urine Urobilinogen (Auto) 3.5 mg/dL 08/13/24 13:35 Leukocyte Esterase (Auto) 0 Maureen/uL 08/13/24 13:35 Assessment & Plan Assessment & Plan (1) Erectile dysfunction associated with type 2 diabetes mellitus: Code(s): E11.69 - Type 2 diabetes mellitus with other specified complication; N52.1 - Erectile dysfunction due to diseases classified elsewhere Category: Medical (2) Family history of prostate cancer: Code(s): Z80.42 - Family history of malignant neoplasm of prostate Category: Medical (3) Elevated PSA: Code(s): R97.20 - Elevated prostate specific antigen [PSA] Category: Medical Plan In office urinalysis results reviewed with the patient today; as noted above. We discussed at length potential causes of ED as well as further treatment options and risks and benefits of these treatment options. Patient with multiple failed oral and injectable therapy for erectile dysfunction. We discussed at length the importance of managing diabetes for improvement in ED as well as overall health and well-being. Will obtain PSA and A1c Continue follow-up with Nephrology regarding proteinuria He denies any bothersome urinary issues or concerns. He reports be happy with current voiding parameters. Follow-up with Dr. Oswald to discussed penile prosthesis Follow-up per doctor's orders; or sooner with any issues, concerns, and or questions. Orders: Orders AMB Urinalysis Automated Today Z13.9 - Encounter for screening, unspecified Hemoglobin A1c Today E11.9 - Type 2 diabetes mellitus without complications Prostate Specific Antigen Today R97.20 - Elevated prostate specific antigen [PSA] Patient Instructions: The patient had an opportunity to ask questions regarding the treatment plan. All questions were answered. Physical exam, labs, and imaging were discussed and reviewed in detail. As well as risks, benefits, and discussion of treatment choices. No major barriers to understanding were identified. The patient expressed understanding and agreement with the above treatment plan. The patient was made aware they should contact our office by phone for worsening of their current condition, the appearance of new symptoms, or with any questions or concerns. Compliance is encouraged with any medications and follow up testing that is ordered. It is a privilege to be allowed the opportunity to participate in? your urological care.? Again, if you have any questions or concerns If you have any questions or concerns please do not hesitate to contact me. The office is [phone]. This note is constructed using voice recognition software. While every effort has been made to ensure accuracy installers mechanical errors may have been included. Yours sincerely, OLAF Nelson Coding Level of Care Code Est Pt Level 3 (13127) Diagnoses Erectile dysfunction associated with type 2 diabetes mellitus E11.69; N52.1 Family history of prostate cancer Z80.42 Elevated PSA R97.20
--- OUTSIDE RECORDS SUMMARY | 2024-08-13 15:54 | XMS_ITS | Continuity of Care Document ---
Author Organization [facility] Address [address] [place] [address] Phone Care Team Providers Care Distance Education Faculty Liaison Name Role Phone Unavailable Unavailable Unavailable Allergies, [...] Meter kit take 1 not specified by [facility]non-drug; combo) route 4 times every day 1 [...] Expanded Problem Hx. Low [facility] Capillary Finger Heel Ear Blood Draw Nov Glucose By Monitoring Device Detailed Hx/Ex Moderate [facility] Glucose By Monitoring Device Capillary Finger Heel Ear Blood Draw September Detailed Hx/Ex Moderate MDM Detailed Hx/Ex Moderate [facility] Expanded Problem Hx. Low [facility] Expanded Problem Hx. Low [facility] Administration Without Counseling Tdap>7yrs IM Expanded Problem Hx. Low [facility] Toradol/Ketorolac Admin Inj Theraputic Prophylactic Diag S C Or IM Expanded Problem Hx. Low [facility] Expanded Problem Hx. Low [facility] Administration Without Counseling Fluzone Quadrivalent Influenza Vaccine 3 Yrs + Routine EKG Screening With Interpretatio n & Report Detailed Hx/Exam Low [facility] Advance Directives Directive Yes / No Effective Date File Name No Information Encounters Encounter Description Practice Location Reason(s) For Visit Diagnoses Date Provider Providers Copied on Encounter [facility], [address] [place] [address], [id number] , tel:[phone] [facility] No Information 1 No Information [address], [id number] , tel:[phone] [facility] No Information 9 Shawn Gandhi. [facility] [id number] [place], [address], [place]. tel:[phone] Expanded Problem Hx. [address], [id number] , tel:[phone] [facility] Follow Up of flank pain (chief complaint) Body mass index (BMI) 38.0-38.9, adultType 2 diabetes mellitus without complication, with long-term current use of insulinAbdomi nal bloatingRight kidney mass Sep-1 - 9 No Information Expanded Problem Hx. Low [address], [id number] , [place] tel:[phone] [facility] diabetes (chief complaint). (chief complaint) Right kidney massType 2 diabetes mellitus with hyperglycemia Body mass index (BMI) 37.0-37.9, adult Sep-0 5-201 9 No Information [facility], [address] [place] [address], [id number] , [place] tel:+ [phone] [facility] No Information No Information Detailed Hx/Ex Moderate MDM [facility], [address] [place] [address], [id number] , [place] tel:+ [phone] [facility] Follow Up of diabetes (chief complaint)Gas (chief complaint) Body mass index (BMI) 38.0-38.9, adultType 2 diabetes mellitus without complication, with long-term current use of insulinDiarrh ea, unspecified typeDDD (degenerative disc disease), cervicalEssen tial hypertensionH yperlipidemia , unspecified hyperlipidemi a typeHistory of LA (myocardial infarction) No Information Detailed Hx/Ex Moderate MDM [address], [id number] , tel:+ [phone] [facility] flank pain (chief complaint)Ski n tag(s) [...] diabetes mellitusInfec kevin surgical wound No Information [address], [id number] , [place] tel:+ [phone] [facility] No Information No Information Detailed Hx/Ex Moderate MDM [address], [id number] , [place] tel:+ [phone] [facility] diabetes (chief complaint)hyp ertension (chief complaint)fol low up [facility] (chief complaint)Fla nk pain (chief complaint) Body mass index (BMI) 37.0-37.9, adultClosed fracture of multiple ribs of right side with routine healing, subsequent encounterEsse ntial hypertensionH yperlipidemia , unspecified hyperlipidemi a typeType 2 diabetes mellitus with hyperglycemia History of LA (myocardial infarction)Ot her diabetic neurological complication associated with type 2 diabetes mellitus 9 No Information Expanded Problem Hx. [facility], [address] [place] [address], [id number] , tel:+ [phone] [facility] Follow Up of Shoulder pain (chief complaint) Body mass index (BMI) 37.0-37.9, adultLeft anterior shoulder pain Jul- 9 No Information Expanded Problem Hx. [address], [id number] , tel:+ [phone] [facility] shoulder pain (chief complaint) Body mass index (BMI) 37.0-37.9, adultLeft anterior shoulder pain 9 No Information Expanded Problem Hx. [facility], [address] [place] [address], [id number] , tel:+ [phone] [facility] immunizations (chief complaint)Khushbu st pain (chief complaint)alejandro betes (chief complaint) Body mass index (BMI) 38.0-38.9, adultType 2 diabetes mellitus with hyperglycemia Essential hypertension No Information Expanded Problem Hx. [facility], [address] [place] [address], [id number] , tel:+ [phone] [facility] shoulder pain (chief complaint)alejandro betes (chief complaint) Body mass index (BMI) 38.0-38.9, adultType 2 diabetes mellitus with hyperglycemia Bilateral claudication of lower limbDeltoid tendonitis of left shoulder No Information Expanded Problem Hx. [address], [id number] , tel:+ [phone] [facility] elbow pain (chief complaint)fol low up on lab test(s) (chief complaint)alejandro betes (chief complaint) Body mass index (BMI) 38.0-38.9, adultArthriti s of elbow, leftType 2 diabetes mellitus with hyperglycemia 8 No Information [facility], [address] [place] [address], [id number] , tel:+ [phone] [facility] No Information 8 No Information Detailed Hx/Exam Low MDM [facility], [address] [place] [address], [id number] , tel:+ [phone] [facility] establish pcp (chief complaint)alejandro joel (chief complaint)hyp ertension (chief complaint) Body mass index (BMI) 37.0-37.9, adultAcute stress reactionEssen tial hypertensionT ype 2 diabetes mellitus without complication, with long-term current use of insulinFlu vaccine needHyperlipi demia, unspecified hyperlipidemi a typeHistory of LA (myocardial infarction)Ot her diabetic neurological complication associated with type 2 diabetes mellitusLeft arm pain 8 No Information Family History Family Member Type Diagnosis Age At Onset No Information Immunizations Vaccine Date Status Comments Tdap administered Source: New Imm unization Record Influenza, injectable, quadrivalent, preservative free, 3 yrs or older administered Source: New Immuniz ation Record Payers Payer name Insurance type Covered green party ID Authoriza tion(s) [facility] [id number] [facility] [id number] [facility] [id number] [facility] [id number] [facility] [id number] [facility] [id number] Social History Type Description Quantity Date Captured [...] Lab Order COMPREHE NSIVE METABOLIC PANEL W/EGFR ([id number]), Ordered on: Ordered History Of Present Illness [...] patient. diabetes Risk factors inc lude: / Czech, family history diabetes mellitus, obesity, over age [...] of diabetes Risk facto rs include: / Czech, family history diabetes mellitus, obesity, over age [...] reptilian pets. Does not have well water. Skin tag(s) patient has skin tag in [...] having pain, out of medication. Was at [facility] in August for fractured ribs on the [...] 06 with the vascular surgeon. . [employer] phone was used through this entire visit. Patient speaks only Swazi. diabetes Risk factors inc lude: / Czech, family history diabetes mellitus, obesity, over age 4545 years old and sedentary lifestyle. Comorbidity: Hypertension. Pertinent negatives include blurred vision, burning of extremities, chest pain, constant hunger, dental disease, diarrhea, dyspnea, frequent infections, frequent urination, heartburn, increased fatigue, nocturia, polydipsia, slow healing wounds / sores and weight gain. Additional information: medcation refills. hypertension Comorbid conditi ons include diabetes mellitus and post-LA. Risk factors include family history HTN, gout [...] unable to sleep d/t pain, at [facility] in August for fx of right rib. follow up [facility] Was at [facility] for rib pain. Follow Up of Shoulder pain Locat ion: [...] working. diabetes Risk factors inc lude: / Czech, family history diabetes mellitus and sedentary lifestyle. immunizations Patient wants te tanus vaccine. Chest pain The patient pres ents with a complaint of Chest pain. The symptoms have resolved. Relevant history for this patient excludes tobacco use. Patient was seen at [facility] last for chest pain. Patient states he took nitro x 3 before going to the hospital. Stress test and CTA of chest were unremarkable. diabetes Risk factors inc lude: / Czech, family history diabetes mellitus and sedentary lifestyle. [...] test(s) diabetes Risk factors inc lude: / Czech, family history diabetes mellitus and sedentary lifestyle. [...] weakness. diabetes Risk factors inc lude: / Czech, family history diabetes mellitus and sedentary lifestyle. Pertinent negatives include chest pain, diarrhea and dyspnea. Additional information: establishing care today- needs all refills and glucometer. hypertension Comorbid conditi ons include diabetes mellitus and post-LA. Risk factors include family history HTN, gout or CAD and male gender. Pertinent negatives include chest pain, dyspnea, fatigue, headache, hematuria, irregular heartbeat/palpitations, nausea and vomiting. Additional information: establishing care- needs to also establish with cardiology for annual check ups establish pcp Patient presents today to establish PCP. PMH: diabetes, hypertension, hyperlipidemia, gerd, neuropathy, LA 2014- cardiac bypass surgey, 5 stents placed, Hx stroke 2015 last saw his heart doctor 4 months ago, was going ever 6 months in [place], recently moved here - needs cardiology referral [...]
--- OUTSIDE RECORDS SUMMARY | 2024-08-13 15:54 | XMS_ITS | Encounter Summary ---
Author Organization [employer] Address [address] [facility] [address] [place] [address] Care Team Providers Care Photograph Enlarger Name Role Phone Juan Miguel Tinajero MD Primary Care Provider [phone] Juan Cordova PharmD Unavailable Unavail able Encounter Details Date Type Department Care Team (Late st Contact Info) Description 12/03/2023 Orders Only [facility] [address] [place], [place] [phone] Juan Miguel Tinajero MD [address] [place] [address] Type 2 diabetes mellitus with both eyes affected by mild nonproliferative retinopathy without macular edema, with long-term current use of insulin ([facility]) (Primary Dx) Social History Tobacco Use Types [...] Description 09/09/2024 9:00 AM EDT Clinical Support [facility] [address] [place] [address] Elsa Barnett, RN [address] [place] [address] 11/19/2024 10:00 AM EDT Office Visit [facility] [address] [place] [address] Liban, Oneida, OD [address] [place] [address] documented as of this encounter Goals Goal [...] edema, with long-term current use of insulin ([facility])- Primary documented in this encounter Additional Health Concerns Assessment Noted Time PHQ-9 Depression Total Score: 0 10/30/19 24 10:10 AM EDT documented as of this encounter Care Teams Photograph Enlarger Relationship Specialty Start Date End Date Juan Miguel Tinajero MD [address] [facility] [place] [address] PCP - General Internal Medicine 05/28/18 Juan Cordova, Benjamin [address] [facility] [place] [address] Pharmacist Internal Medicine 07/14/22 Yvonne Knox Director Of AudiologyAirplane Mechanic 02/15/23 Yvonne Knox Director Of AudiologyAirplane Mechanic 04/09/24 documented as of this encounter
--- OUTSIDE RECORDS SUMMARY | 2024-08-13 15:54 | XMS_ITS | Encounter Summary ---
Author Organization [employer] Address [address] [facility] [address] [place] [address] Care Team Providers Care Anchorer Name Role Phone Juan Miguel Tinajero MD Primary Care Provider [phone] Juan Cordova PharmD Unavailable Unavail able Encounter Details Date Type Department Care Team ([facility] st Contact Info) Description 09/26/2023 Orders Only [facility] [address] [place], [place] [phone] Juan Miguel Tinajero MD [address] [place] [address] Social History Tobacco Use Types Packs/Day Years [...] 09/09/2024 9:00 AM EDT Clinical Support [facility] [address] [place] [address] Elsa Barnett, JENS [address] [place] [address] 11/19/2024 10:00 AM EDT Office Visit [facility] [address] [place] [address] Oneida Louie, OD [address] [place] [address] documented as of this encounter Goals Goal [...] documented as of this encounter Care Teams Anchorer Relationship Specialty Start Date End Date Juan Miguel Tinajero MD [address] [place] [address] PCP - General Internal Medicine 05/28/18 Juan Cordova, PharmD [address] [place] [address] DAKOTA Garcia [address] Pharmacist Internal Medicine 07/14/22 Yvonne Knox ReinforcerTire Recapper 02/15/23 Yvonne Knox ReinforcerTire Recapper 04/09/24 documented as of this encounter
--- OUTSIDE RECORDS SUMMARY | 2024-08-13 15:54 | XMS_ITS | Encounter Summary ---
Author Organization [employer] Address [address] [facility] [address] [place] [address] Care Team Providers Care Telegraph Office Route Aide Name Role Phone Juan Miguel Tinajero MD Primary Care Provider [phone] Juan Cordova PharmD Unavailable Unavail able Reason for Visit * Reason Comments Med Refill Encounter Details Date Type Department Care Team ([facility] Contact Info) Description 02/19/2023 Refill [facility] MED & PEDS [address] [place] [address] Juan Miguel Tinajero MD [address] [place] [address] Peripheral arterial occlusive disease (CMS/HCC) Social History [...] Upcoming Encounters Date Type Department Care Team ([facility] Contact Info) Description 09/09/2024 9:00 AM EDT Clinical Support [facility] [address] [place] [address] Elsa Barnett, RN [address] [place] [address] 11/19/2024 10:00 AM EDT Office Visit [facility] [address] [place] [address] Oneida Louie, OD [address] [place] [address] documented as of this encounter Goals Goal [...] documented as of this encounter Care Teams Telegraph Office Route Aide Relationship Specialty Start Date End Date Juan Miguel Tinajero MD [address] [place] [address] PCP - General Internal Medicine 05/28/18 Juan Cordova, PharmD [address] [place] [address] Pharmacist Internal Medicine 07/14/22 Yvonne Knox Air Pollution AnalystContract Project Manager 02/15/23 Yvonne Knox Air Pollution AnalystContract Project Manager 04/09/24 documented as of this encounter
--- OUTSIDE RECORDS SUMMARY | 2024-08-13 15:54 | XMS_ITS | Encounter Summary ---
Author Organization [employer] Address [address] [facility] [address] [place] [address] Care Team Providers Care Wraparound Facilitator Name Role Phone Juan Miguel Tinajero MD Primary Care Provider [phone] Juan Cordova PharmD Unavailable Unavail able Encounter Details Date Type Department Care Team ([facility] st Contact Info) Description 11/09/2023 Orders Only [facility] MED & PEDS [address] [place], [place] [phone] Juan Miguel Tinajero MD [address] [place] [address] Social History Tobacco Use Types Packs/Day Years [...] Description 09/09/2024 9:00 AM EDT Clinical Support [facility]ED[facility] [address] [place] [address] Elsa Barnett, JENS [address] [place] [address] 11/19/2024 10:00 AM EDT Office Visit [facility] [address] [place] [address] Oneida Louie, OD [address] [place] [address] documented as of this encounter Goals Goal [...] documented as of this encounter Care Teams Wraparound Facilitator Relationship Specialty Start Date End Date Juan Miguel Tinajero MD [address] [place] [address] PCP - General Internal Medicine 05/28/18 Juan Cordova, PharmD [address] [place] [address] D[place] Garcia [address] Pharmacist Internal Medicine 07/14/22 Yvonne Knox Geological E LoggerProcess Planner 02/15/23 Yvonne Knox Geological E LoggerProcess Planner 04/09/24 documented as of this encounter
--- OUTSIDE RECORDS SUMMARY | 2024-08-13 15:54 | XMS_ITS | Encounter Summary ---
Author Organization [employer] Address [address] [facility] [address] [place] [address] Care Team Providers Care Relocation Counselor Name Role Phone Juan Miguel Tinajero MD Primary Care Provider [phone] Juan Cordova PharmD Unavailable Unavail able Reason for Visit * Reason Comments Med Refill Encounter Details Date Type Department Care Team ([facility] Contact Info) Description 06/28/2023 Refill [facility] MED [facility] PEDS [address] [place], [place] [phone] Juan Miguel Tinajero MD [address] [place] [address] Moderate persistent asthma without complication Social History [...] Description 09/09/2024 9:00 AM EDT Clinical Support [facility] [address] [place] [address] Elsa Barnett RN [address] [place] [address] 11/19/2024 10:00 AM EDT Office Visit [facility] [address] [place] [address] Liban, Oneida, OD [address] [place] [address] documented as of this encounter Goals Goal [...] documented as of this encounter Care Teams Relocation Counselor Relationship Specialty Start Date End Date Juan Miguel Tinajero MD [address] [facility] [place] [address] PCP - General Internal Medicine 05/28/18 Juan Cordova, Benjamin [address] [facility] [place] [address] Pharmacist Internal Medicine 07/14/22 Yvonne Knox Coil CutterCandy Mixer 02/15/23 Yvonne Knox Coil CutterCandy Mixer 04/09/24 documented as of this encounter
--- OUTSIDE RECORDS SUMMARY | 2024-08-13 15:54 | XMS_ITS | Clinical Summary ---
Author Organization [employer] Address [address] [facility] [place] [address] Care Team Providers Care Imposer Name Role Phone Juan Miguel Tinajero MD Primary Care Provider [phone] Juan Cordova PharmD Unavailable Unavail able Allergies [...] / DIRECTED 023 Active Continuous Blood Gluc Control Equipment Electrician (FreeStyle Michael 2 [place]) deviceIndications: Type 2 diabetes mellitus with other circulatory complication, with long-term current use of insulin ([facility]) Use to check blood sugar as directed 1 each 023 Active glucose 4 g chewable tabletIndications: Type 2 diabetes mellitus with other circulatory complication, with long-term current use of insulin ([facility]) Chew 4 tablets (16 g) if needed [...] complication, with long-term current use of insulin ([facility]) USE TO TEST BLOOD SUGAR CHANGE AFTER TWO WEEKS, THREE TIMES DAILY 2 each 023 Active carvedilol (Coreg) 6.25 MG tabletIndications: Benign essential hypertension TAKE ONE TABLET TWICE DAILY IN THE MORNING AND AT BEDTIME WITH FOOD 180 tablet 3 023 Active clopidogrel (Plavix) 75 MG tabletIndications: Peripheral arterial occlusive disease ([facility]) TAKE ONE TABLET EVERY MORNING 90 tablet [...] complication, with long-term current use of insulin ([facility]) TEST BLOOD SUGAR FIVE TIMES DAILY 200 each 11 024 Active risperiDONE (RisperDAL) 3 MG tabletIndications: MDD (major depressive disorder), recurrent, severe, with psychosis ([facility]) Take 1 tablet (3 mg) by mouth at bedtime. 90 tablet 3 024 Active Alcohol Swabs (Alcohol Prep) 70 % padsIndications:Ty pe 2 diabetes mellitus with diabetic peripheral angiopathy without gangrene, with long-term current use of insulin ([facility]) USE FIVE DAILY 100 each 11 024 Active Diclofenac Sodium 1 % gelIndications:Chr onic right shoulder pain APPLY 2 GRAM'S TO AFFECTED AREA(s) FOUR TIMES DAILY NEEDED 100 g 1 024 Active insulin pen needle (TechLite Plus Pen [place]) 32G x 4 mm misc USE FIVE DAILY 100 each 11 024 Active insulin glargine (Lantus SoloStar) 100 UNIT/ML penIndications:Typ e 2 diabetes mellitus with other circulatory complication, with long-term current use of insulin ([facility]) INJECT 35 UNITS SUBCUTANEOUSLY EVERY DAY 15 mL 3 024 Active FREESTYLE LITE test stripIndications:T ype 2 diabetes mellitus with diabetic peripheral angiopathy without gangrene, with long-term current use of insulin ([facility]) TEST BLOOD SUGAR FIVE TIMES DAILY 150 strip 5 024 Active triamcinolone (Kenalog) 0.1 % creamIndications:D yshydrosis Apply topically if needed in the morning and at bedtime (pain and swelling). 30 g 5 024 Active Mounjaro 5 MG/0.5ML solution auto-injectorIndic ations:Type 2 diabetes mellitus with both eyes affected by mild nonproliferative retinopathy without macular edema, with long-term current use of insulin ([facility]) INJECT FIVE MG SUBCUTANEOUSLY ONCE A WEEK [...] chronic back and shoulder pain. Gets regular BIBLICAL STUDIES PROFESSOR follow up and has Narcan prescribed. Has [...] chronic back and shoulder pain. Gets regular BIBLICAL STUDIES PROFESSOR follow up and has Narcan prescribed. Will [...] chronic back and shoulder pain. Gets regular BIBLICAL STUDIES PROFESSOR follow up and has Narcan prescribed. He [...] chronic back and shoulder pain. Gets regular BIBLICAL STUDIES PROFESSOR follow up and has Narcan prescribed. He [...] chronic back and shoulder pain. Gets regular BIBLICAL STUDIES PROFESSOR follow up and has Narcan prescribed. F/U with me in 3 months. He agrees with the plan. Assessment & Plan (10/02/2022 10:49 AM EDT): Prior history suicide attempts and hospitalizations. Still doing extremely well. Hallucinations controlled. Continue Risperidone 3 mg daily. He also takes Tramadol 50 mg TID prn and Gabapentin 600 mg TID for chronic back and shoulder pain. Gets regular BIBLICAL STUDIES PROFESSOR follow up and has Narcan prescribed. F/U [...] Encounters Date Type Department Care Team Description 08/08/20[address] [facility] () Department [address] [place] [address] [phone] Provider, Population Health Generic 08/07/2024 Orders Only [facility] External Provider, [facility] 08/05/2024 Refill [facility] CHC MED & PEDS [address] [place] [address] Juan Miguel Tinajero MD Peripheral arterial occlusive disease ([facility]) 07/28/2024 Refill [facility] MED & PEDS [address] [place] [address] Juan Miguel Tinajero MD Chronic right shoulder pain; Pain in right shoulder; Back pain, unspecified back location, unspecified back pain laterality, unspecified chronicity 07/08/2024 Refill [facility] MED & PEDS [address] [place] [address] Juan Miguel Tinajero MD Complains of low back pain 07/05/2024 Refill [facility] MED & PEDS [address] [place] [address] Juan Miguel Tinajero MD Sore throat; Bacterial conjunctivitis; Chronic pain syndrome 06/27/2024 10:20 AM EST Office Visit [facility] WALK-IN CENTER [address] [place] [id number] Cameron Henning MD Chronic low back pain with sciatica, sciatica laterality unspecified, unspecified back pain laterality (Primary Dx); Radicular pain of right lower extremity 06/27/2024 Telephone [facility] MED & PEDS [address] [place] [address] Juan Miguel Tinajero MD Walk-In 06/26/2024 Refill [facility] MED & PEDS [address] [place] [address] Juan Miguel Tinajero MD Chronic right shoulder pain; Pain in right shoulder; Back pain, unspecified back location, unspecified back pain laterality, unspecified chronicity 06/13/2024 Refill [facility] MED & PEDS [address] [place] [address] Juan Miguel Tinajero MD Sore throat; Bacterial conjunctivitis; Chronic pain syndrome 06/12/2024 Telephone [facility] [address] [place] [address] Whit Amezcua MD 06/11/2024 9:00 AM EST Clinical Support [facility] MED & PEDS [address] [place] [address] Elsa Barnett RN Chronic pain syndrome 06/11/2024 Telephone [facility] MED & PEDS [address] [place] [address] Elsa Barnett RN 06/11/2024 Travel 06/08/2024 Refill [facility] MED & PEDS [address] [place] [address] Juan Miguel Tinajero MD Chronic right shoulder pain; Pain in right shoulder 06/06/2024 Refill [facility] MED & PEDS [address] [place] [address] Juan Miguel Tinajero MD Peripheral arterial occlusive disease ([facility]) 06/04/2024 3:00 PM EST Office Visit [facility] MED & PEDS [address] [place], [place] [phone] Whit Amezcua MD Benign essential hypertension (Primary Dx); Impacted cerumen of right ear; Diarrhea, unspecified type 06/04/2024 Travel 06/04/2024 Telephone [facility] PEDS [address] [place] [address] Nicole Lugo, JENS Walk-In (Ear discomfort) 06/04/2024 Telephone [facility] MED [facility] PEDS [address] [place], [place] [phone] Juan Miguel Tinajero MD Walk-In 06/04/2024 Refill [facility] MED [facility] PEDS [address] [place] [address] Juan Miguel Tinajero MD Benign essential hypertension 06/03/2024 Refill [facility] MED & PEDS [address] [place] [address] Juan Miguel Tinajero MD Impacted cerumen of right ear 06/02/2024 Refill [facility] MED & PEDS [address] [place] [address] Juan Miguel Tinajero MD Type 2 diabetes mellitus with both eyes affected by mild nonproliferative retinopathy without macular edema, with long-term current use of insulin ([facility]) 05/30/2024 Telephone [facility] MEDICINE [address] [place], [place] [phone] Juan Miguel Tinajero MD Medication Question 05/29/2024 Telephone [facility] MED [facility] PEDS [address] [place] [address] Juan Miguel Tinajero MD Medication Question 05/29/2024 Refill [facility] MED & PEDS [address] [place] [address] Juan Miguel Tinajero MD Chronic right shoulder pain; Pain in right shoulder; Back pain, unspecified back location, unspecified back pain laterality, unspecified chronicity 05/23/2024 9:30 AM EST Clinical Support [facility] MED & PEDS [address] [place] [address] Trell Hubbard RN Impacted cerumen of right ear (Primary Dx); Encounter for immunization 05/23/2024 Travel 05/16/2024 Refill [facility] MED & PEDS [address] [place] [address] Juan Miguel Tinajero MD Sore throat; Bacterial conjunctivitis; Chronic pain syndrome 05/15/2024 Telephone [facility] MED & PEDS [address] [place] [address] Leana Huizar RN Results from Last 3 Months Immunizations Name Administration [...] 9:00 AM EDT Clinical Support [facility] MED & PEDS [address] [place] [address] Elsa Banrett, RN [address] [place] [address] 11/19/2024 10:00 AM EDT Office Visit [facility] OPTOMETRY [address] [place] [address] LibanOneida, OD [address] [place] [address] Health Maintenance Due Date Last Done Comments [...] history exists Depression Screening 10/29/2024 10/30/2023, 10/30/19 24 Diabetes: Hemoglobin A1C 11/12/2024 024, 11/01/2023, 06/12/2023, [...] 6.4( 9:31 AM EST) No Juan Cordova, Benjamin Procedures Procedure Name Priority Date/Time Associated Diagnosis Comments STRESS TEST WITH MYOCARDIAL PERFUSION Routine 08/07/2024 10:29 AM EDT POCT URINALYSIS DIPSTICK Routine 06/27/2024 10:38 AM EST Chronic low back pain with sciatica, sciatica laterality unspecified, unspecified back pain laterality Radicular pain of right lower extremity POCT RACHEL-14 URINE DRUG SCREEN Routine 06/11/2024 9:02 AM EST Chronic pain syndrome [place] REMOVAL IMPACTED CERUMEN IRRIGATION/LVG UNILAT Routine 05/23/2024 11:10 AM EST Impacted cerumen of right ear LIPID PANEL, STANDARD Routine 05/14/2024 10:41 AM EST Type 2 diabetes mellitus with hyperglycemia, with long-term current use of insulin ([facility]) POCT GLYCATED HEMOGLOBIN, TOTAL Routine 05/14/2024 9:31 AM EST Type 2 diabetes mellitus with hyperglycemia, with long-term current use of insulin ([facility]) COLONOSCOPY Routine 10/05/2022 from Last 3 Months or Most Recently Relevant to Health Maintenance Results * Stress test with myocardial perfusion (08/07/2024 10:29 AM EDT) 08/07/2024 10:2 9 AM EDT Narrative [facility] IM[facility] - 08/12/2024 6:17 PM EDT ? [facility] ?[address] ?[place] [address] ?Nuclear Medicine Report ? Signed ? Patient: Aulet Brito,Osvaldo ?MR#: M ?? [id number] ? : 1960 ?Acct:[id number] ? Age/Sex: 64 / M ?ADM Date: 03/13/25 ? Loc: HO.CARD ? Attending Case Ogden MD ? Ordering Physician: Bassam Ogden MD ?? Date of Service: 08/07/24 ?? Procedure(s): NM cardiolite stress test ?? Accession Number(s): [id number] ? cc: Juan Miguel Tinajero MD; Bassam Ogden MD ? Lexiscan Myocardial perfusion study ? Indication: ?? Angina pectoris evaluate for myocardial ischemia ? Technique: ? The patient was brought in for a Lexiscan perfusion study on 08/07/2024 ?? and was injected 0.4 mg of Lexiscan intravenously. Within a minute of ?? this injection 30 mCi of sestamibi was given intravenously. Images were ?? obtained using the SPECT gamma camera interlaced with the gating ?? device. Images were obtained in supine position. ? Resting perfusion study was performed on 08/12/2024. Patient was ?? administered e mCi of sestamibi intravenously at rest. Images were ?? then obtained in supine position. ? Images obtained without without CT attenuation. Total DLP 195 mGy-cm. ? Images were processed with the software and compared side to side in ?? short axis, horizontal long axis and vertical long axis views. ? Findings: ? The stress perfusion study showed ??nonattenuated images show mildly ?? reduced uptake in the basal and mid inferior as well as inferoapical ?? and basal and mid inferolateral wall of the LV myocardium. Remainder of ?? the LV myocardium is normally perfused.. The gated study shows normal ?? LV systolic function with calculated LVEF of 56%. LV cavity is normal ?? in size. The gated study shows normal systolic ??wall thickening and ?? contraction of segments. ?? Resting study shows nonattenuation corrected uptake in the inferior and ?? inferolateral wall. Gating at rest reveals normal systolic wall motion ?? with ejection fraction at 58%. ? The findings are consistent with mild intensity moderate size inferior ?? as well as basal and mid inferolateral wall reversible defect ?? suggestive of ischemia. ? NM/NM cardiolite stress test ?? Impression: ? 1. ??Myocardial perfusion imaging study shows mild intensity moderate ?? size inferior and inferolateral ischemia in RCA/circumflex distribution ?? 2. ??Gated LVEF is 56% ?? 3. Transient ischemic dilatation not present ? Nondiagnostic changes on EKG. ? Electronically signed by: ??Ramesh Tse MD ??08/12/2024 06:14 PM EDT RP ? Dictated By: ?Ramesh Tse MD ? Signed By: ?<Electronically signed by Ramesh Tse MD in OV> ?08/12/24 1814 ? DD/ 1029 ? TD/TT: 08/12/24 0830 ? Diagnostic Radiologist: ? Procedure Note Donotuseinterpreter, Image - 08/12/2024 [place] [address] Nuclear Medicine Report Signed Patient: Marilyn Ding#: Alix [id number] : 1960cct:[id number] Age/Sex: 64 / MADM Date: 08/07/24 [facility] Dr: Bassam Ogden MD Ordering Physician: Bassam Ogden MD Date of Service: 08/07/24 Procedure(s): NM cardiolite stress test Accession Number(s): [id number] cc: Juan Miguel Tinajero MD; Bassam Ogden MD Lexiscan Myocardial perfusion study Indication: Angina pectoris evaluate for myocardial ischemia Technique: The patient was brought in for a Lexiscan perfusion study on 08/07/2024 and was injected 0.4 mg of Lexiscan intravenously. Within a minute of this injection 30 mCi of sestamibi was given intravenously. Images were obtained using the SPECT gamma camera interlaced with the gating device. Images were obtained in supine position. Resting perfusion study was performed on 08/12/2024. Patient was administered e mCi of sestamibi intravenously at rest. Images were then obtained in supine position. Images obtained without without CT attenuation. Total DLP 195 mGy-cm. Images were processed with the software and compared side to side in short axis, horizontal long axis and vertical long axis views. Findings: The stress perfusion study showed nonattenuated images show mildly reduced uptake in the basal and mid inferior as well as inferoapical and basal and mid inferolateral wall of the LV myocardium. Remainder of the LV myocardium is normally perfused.. The gated study shows normal LV systolic function with calculated LVEF of 56%. LV cavity is normal in size. The gated study shows normal systolic wall thickening and contraction of segments. Resting study shows nonattenuation corrected uptake in the inferior and inferolateral wall. Gating at rest reveals normal systolic wall motion with ejection fraction at 58%. The findings are consistent with mild intensity moderate size inferior as well as basal and mid inferolateral wall reversible defect suggestive of ischemia. NM/NM cardiolite stress test Impression: 1. Myocardial perfusion imaging study shows mild intensity moderate size inferior and inferolateral ischemia in RCA/circumflex distribution 2. Gated LVEF is 56% 3. Transient ischemic dilatation not present Nondiagnostic changes on EKG. Electronically signed by: Ramesh Tse MD 08/12/2024 06:14 PM EDT RP Dictated By: Ramesh Tse MD Signed By: <Electronically signed by Ramesh Tse MD in OV> 08/12/24 1814 DD/ 1029 TD/TT: 08/12/24 0830 Diagnostic Radiologist: [facility] External Provider CV STRE SS PROCEDURES Final Result [facility] [address] [place], [place] [id number] * (ABNORMAL) POCT urinalysis dipstick manually resulted [...] RN - 06/11/2024 9:02 AM EST Lot# [id number] Exp: 05-03-25 us Juan Miguel Tinajero MD POINT OF CARE TEST ENTER/ED IT ORDERABLES Final Result * [place] REMOVAL IMPACTED CERUMEN IRRIGATION/LVG UNILAT (05/23/2024 11:10 AM EST) Trell Lowry RN - 05/23/2024 11:10 AM EST Trell Hubbard RN ? 05/23/2024 11:30 AM Ear Cerumen Removal Date/Time: 05/23/2024 11:10 AM Performed by: Trell Hubbard RN Authorized by: Juan Miguel Tinajero MD ?? Consent: ??Consent obtained: ??Verbal ??Consent given by: ??Patient ??Risks, benefits, and alternatives were discussed: yes ?Risks discussed: ??Pain, dizziness and incomplete removal ??Alternatives discussed: ??Observation [place] protocol: ??Procedure explained and questions answered to [...] IN CLINIC/BEDSIDE ORDERABLE S Final Result * Lipid Panel, Standard (05/14/2024 10:41 AM EST) Triglycerides 71 <150 mg/dL [facility] Comment:Desirable Triglyceri de: less than 150 mg/dLBorderline High Triglyceride 150-199 mg/dLHigh Triglyceride: 200-499 mg/dLVery High Triglyceride: greater than or equal to 5OO mg/dL Cholesterol 122 <200 mg/dL [facility] Comment:Desirable Cholestero l: less than 200 mg/dLBorderline High Cholesterol: 200-239 mg/dLHigh Cholesterol: greater than 239 mg/dL LDL Cholesterol Calculated 64 <100 mg/dL [facility] Comment:Desirable LDL: less than 100 mg/dLNear Optimal/Above Optimal LDL: 110- 129 mg/dLBorderline High LDL: 130-159 mg/dLHigh LDL: 160-189 mg/dLVery High LDL: greater than or equal to 190 mg/dL HDL Cholesterol 44 >40 mg/dL [facility] Comment:Desirable HDL: great er than 40 mg/dL Note: This HDL assay may give artificially low results in patients with liver disease. Blood Venous blood specimen / Unknown 05/14/2024 10:41 AM EST 05/14/2024 2:06 PM EST us Juan Miguel Tinajero MD LAB BLOOD ORDERABLES Final Result [facility] [address] [place] [address] [phone] * (ABNORMAL) POCT A1C (05/14/2024 9:31 AM EST) Hemoglobin A1C 6.4(A) 4.0 - 6.0 % QC Media Lot # Comment:[id number] Lot# Expiration Date Comment:12/26/2025 Blood 05/14/2024 9:31 AM EST Juan Miguel Tinajero MD POINT OF CARE TEST ENTER/ED IT ORDERABLES Final Result * (ABNORMAL) Colonoscopy (10/05/2022) Anatomical Region Laterality Modality Endoscopy Narrative 10/05/2022 Poor prep johnathon right side internal hemorrhoids. Historical Provider ENDOSCOPY PROCEDURE ORDER XANDER Final Result from Last 3 Months or Most Recently Relevant to Health Maintenance Insurance [facility] C3 [facility] [employer] STAND ADULT Care Teams Imposer Relationship Specialty Start Date End Date Juan Miguel Tinajero MD [address] [facility] [place] [address] PCP - General Internal Medicine 05/28/18 Juan Cordova, PharmD [address] [facility] [place] [address] Pharmacist Internal Medicine 07/14/22 Yvonne Knox Separator OperatorBottling Machine Operator 02/15/23 Yvonne Knox Separator OperatorBottling Machine Operator 04/09/24
--- OUTSIDE RECORDS SUMMARY | 2024-08-13 15:54 | XMS_ITS | Encounter Summary ---
Author Organization [employer] Address [address] [facility] [address] [place] [address] Care Team Providers Care Furniture Servicer Name Role Phone Juan Miguel Tinajero MD Primary Care Provider [phone] Juan Cordova PharmD Unavailable Unavail able Encounter Details Date Type Department Care Team ([facility] Contact Info) Description 05/05/2022 Orders Only [facility] MEDICINE [address] [place], [place] [phone] Juan Miguel Tinajero MD [address] [place] [address] Social History Tobacco Use Types Packs/Day Years [...] Upcoming Encounters Date Type Department Care Team ([facility] Contact Info) Description 09/09/2024 9:00 AM EDT Clinical Support [facility] CHC MED & PEDS [address] [place] [address] Elsa Barnett, JENS [address] [place] [address] 11/19/2024 10:00 AM EDT Office Visit [facility] OPTOMETRY [address] [place] [address] Oneida Louie, OD [address] [place] [address] documented as of this encounter Goals Goal Patient Goal Type Associated Problems Recent Progress Patient-Stated? Author Hemoglobin A1c < 7 Result Component 6.4(05/14/2024 9:31 AM EST) No Juan Cordova, PharmD documented as of this encounter Visit Diagnoses Not on filedocumented in this encounter Care Teams Furniture Servicer Relationship Specialty Start Date End Date Juan Miguel Tinajero MD [address] [place] [address] PCP - General Internal Medicine 05/28/18 Juan Cordova, PharmD [address] [place] [address] Pharmacist Internal Medicine 07/14/22 Yvonne Knox Edm OperatorRetail Salesperson 02/15/23 Yvonne Knox Edm OperatorRetail Salesperson 04/09/24 documented as of this encounter
--- OUTSIDE RECORDS SUMMARY | 2024-08-13 15:54 | XMS_ITS | Encounter Summary ---
Author Organization [employer] Address [address] [facility] [address] [place] [address] Care Team Providers Care Motorcycle Assembler Name Role Phone Juan Miguel Tinajero MD Primary Care Provider [phone] Juan Cordova PharmD Unavailable Unavail able Encounter Details Date Type Department Care Team (Late Contact Info) Description 04/24/2022 Abstract [facility] ADULT DENTAL [address] [place] [address] Dental, Provider, DDS Social History Tobacco Use [...] 9:00 AM EDT Clinical Support [facility] MED & PEDS [address] [place] [address] Elsa Barnett, RN [address] [place] [address] 11/19/2024 10:00 AM EDT Office Visit [facility] OPTOMETRY [address] [place] [address] Oneida Louie, OD [address] [place] [address] documented as of this encounter Procedures Procedure [...] on filedocumented in this encounter Care Teams Motorcycle Assembler Relationship Specialty Start Date End Date Juan Miguel Tinajero MD [address] [place] [address] PCP - General Internal Medicine 05/28/18 Juan Cordova PharmD [address] [place] [address] Pharmacist Internal Medicine 07/14/22 Yvonne Knox Dispatch SupervisorSocket Puller 02/15/23 Yvonne Knox Dispatch SupervisorSocket Puller 04/09/24 documented as of this encounter
--- OUTSIDE RECORDS SUMMARY | 2024-08-13 15:54 | XMS_ITS | Encounter Summary ---
Author Organization [employer] Address 75 [facility] 7t [place] [address] Care Team Providers Care Receptionist Telephone Operator Name Role Phone Juan Miguel Tinajero MD Primary Care Provider +1 [phone] Juan Cordova PharmD Unavailable Unavail able Encounter Details Date Type Department Care Team (Late st Contact Info) Description 08/07/2024 Orders Only [facility] External Provider, [facility] Social History Tobacco Use Types Packs/Day Years [...] Upcoming Encounters Date Type Department Care Team ([facility] st Contact Info) Description 09/09/2024 9:00 AM EDT Clinical Support [facility] CHC MED & PEDS [address] [place] [address] Elsa Barnett, RN 505 [place] [address] 11/19/2024 10:00 AM EDT Office Visit [facility] OPTOMETRY [address] [place] [address] LibanOneida, OD [address] [place] [address] documented as of this encounter Goals Goal Patient Goal Type Associated Problems Recent Progress Patient-Stated? Author Blood Pressure < 140/90 Blood Pressure 145/90(2024 10:18 AM EST) No Juan Cordova, PharmD Hemoglobin A1c < 7 Result Component 6.4( 9:31 AM EST) No DelKaleb delgadois, PharmD documented as of this encounter Procedures Procedure Name Priority Date/Time Associated Diagnosis Comments STRESS TEST WITH MYOCARDIAL PERFUSION Routine 08/07/2024 10:29 AM EDT documented in this encounter Results * Stress test with myocardial perfusion (08/07/2024 10:29 AM EDT) 08/07/2024 10:2 9 AM EDT [facility] IMAGING - 08/12/2024 6:17 PM EDT ? [facility] ?[address] ?[place] [address] ?Nuclear Medicine Report ? Signed ? Patient: Aulet Brito,Osvaldo ?MR#: M ?? [id number] ? : 1960 ?Acct:[id number] ? Age/Sex: 64 / M ?ADM Date: 08/07/24 ? Loc: HO.CARD ? Attending Dr: Bassam Ogden MD ? Ordering Physician: Bassam Ogden MD ?? Date of Service: 08/07/24 ?? Procedure(s): NM cardiolite stress test ?? Accession Number(s): [id number] ? cc: Juan Miguel Tinajero MD; Bassam [...] DD/ 1029 ? TD/TT: 08/12/24 0830 ? Translator Interpreter: ? Procedure Note Sloan Connelly - 08/12/2024 [place] [address] Nuclear Medicine Report Signed Patient: Marilyn Ding#: M [id number] : 1960cct:[id number] Age/Sex: 64 / MADM Date: 08/07/24 Loc: NIKOLAY Attending Dr: Bassam Ogden MD Ordering Physician: Bassam Ogden MD Date of Service: 08/07/24 Procedure(s): NM cardiolite stress test Accession Number(s): [id number] cc: Juan Miguel Tinajero MD; Bassam Ogden [...] Ramesh Tse MD 08/12/2024 06:14 PM EDT Dictated By: Ramesh Tse MD Signed By: <Electronically signed by Ramesh Tse MD in OV> 08/12/24 1814 DD/ 1029 TD/TT: 08/12/24 0830 Translator Interpreter: us [facility] External Provider CV STRE SS PROCEDURES Final Result [facility] IMAGING [address] [place] [address] documented in this encounter Visit Diagnoses Not on filedocumented in this encounter Additional Health Concerns Assessment Noted Time PHQ-9 Depression Total Score: 0 10/30/19 24 10:10 AM EDT documented as of this encounter Care Teams Receptionist Telephone Operator Relationship Specialty Start Date End Date Juan Miguel Tinajero MD 505 [place] [address] PCP - General Internal Medicine 05/28/18 Juan Cordova, Benjamin [address] [place] [address] Pharmacist Internal Medicine 07/14/22 Yvonne Knox Ammunition SupervisorManager Business 02/15/23 Yvonne Knox Ammunition SupervisorManager Business 04/09/24 documented as of this encounter
--- OUTSIDE RECORDS SUMMARY | 2024-08-13 15:54 | XMS_ITS | Encounter Summary ---
Author Organization [employer] Address 75 [facility] 7[address] [place] [address] Care Team Providers Care Corset Fitter Name Role Phone Juan Miguel Tinajero MD Primary Care Provider +1- [phone] Juan Cordova PharmD Unavailable Unavail able Reason for Visit * Reason Comments Med Refill Encounter Details Date Type Department Care Team (Late Contact Info) Description 08/19/2022 Refill [facility] CH[facility] MED & PEDS 505 [place], [place] [phone] Juan Miguel Tinajero MD 505 [place] [address] Seasonal allergic rhinitis due to other allergic [...] Upcoming Encounters Date Type Department Care Team ([facility] Contact Info) Description 09/09/2024 9:00 AM EDT Clinical Support [facility] CHC MED & PEDS [address] [place] [address] Elsa Barnett, RN [address] [place], [place] 11/19/2024 10:00 AM EDT Office Visit [facility] OPTOMETRY [address] [place] [address] Oneida Louie, OD [address] [place] [address] documented as of this encounter Goals Goal [...] documented as of this encounter Care Teams Corset Fitter Relationship Specialty Start Date End Date Juan Miguel Tinajero MD 505 [place] [address] PCP - General Internal Medicine 05/28/18 Juan Cordova, PharmD 505 [place] [address] Pharmacist Internal Medicine 07/14/22 Yvonne Knox Director Of Career ResourcesHot Mix Operator 02/15/23 Yvonne Knox Director Of Career ResourcesHot Mix Operator 04/09/24 documented as of this encounter
--- OUTSIDE RECORDS SUMMARY | 2024-08-13 15:54 | XMS_ITS | Encounter Summary ---
Author Organization [employer] Address 75 [facility] 7t [place] [address] Care Team Providers Care Building Pressure Washer Name Role Phone Juan Miguel Tinajero MD Primary Care Provider +1 [phone] Juan Cordova PharmD Unavailable Unavail able Reason for Visit * Reason Comments Med Refill Encounter Details Date Type Department Care Team ([facility] st Contact Info) Description 10/31/2023 Refill [facility] CHC MED & PEDS 505 [place], [place] [phone] Juan Miguel Tinajero MD 505 [place] [address] Chronic right shoulder pain; Pain in right [...] Description 09/09/2024 9:00 AM EDT Clinical Support [facility] CHC MED & PEDS 505 [place] [address] Elsa Barnett, RN 505 [place] [address] 11/19/2024 10:00 AM EDT Office Visit [facility] OPTOMETRY [address] [place] [address] Liban, Oneida, OD [address] [place] [address] documented as of this encounter Goals Goal [...] documented as of this encounter Care Teams Building Pressure Washer Relationship Specialty Start Date End Date Juan Miguel Tinajero MD 505 [facility] [place] [address] PCP - General Internal Medicine 05/28/18 Juan Cordova PharmD 505 [place] [address] Pharmacist Internal Medicine 07/14/22 Yvonne Knox Cage Shift ManagerDistrict Claims Manager 02/15/23 Yvonne Knox Cage Shift ManagerDistrict Claims Manager 04/09/24 documented as of this encounter
--- OUTSIDE RECORDS SUMMARY | 2024-08-13 15:54 | XMS_ITS | Encounter Summary ---
Author Organization [employer] Address 75 [facility] 7t [place] [address] Care Team Providers Care Writing Center Director Name Role Phone Juan Miguel Tinajero MD Primary Care Provider +1 [phone] Juan Cordova PharmD Unavailable Unavail able Reason for Visit * Reason Onset Date Comments Pre-op Visit 01/07/2024 Encounter Details Date Type Department Care Team ([facility] st Contact Info) Description 01/07/2024 Telephone [facility] MEDICINE [address] [place] [address] Juan Miguel Tinajero MD 505 [place] [address] Pre-op Visit Social History Tobacco Use Types [...] PM EDT Outgoing call to [place] at [facility] [place] calling to inform pt agreed to come [...] Yes Surgeon's name: lawanda kingsley Facility name: [facility] [place] Surgeon's office number: [phone] Surgeon's office fax number: [phone] Contact name: [place] Last office note from surgeon requested: Yes documented in this encounter Plan of Treatment Upcoming Encounters Date Type Department Care Team ([facility] st Contact Info) Description 09/09/2024 9:00 AM EDT Clinical Support [facility] MED & PEDS 505 [place] [address] Elsa Barnett, RN 505 [place] [address] 11/19/2024 10:00 AM EDT Office Visit [facility] OPTOMETRY [address] [place] [address] Liban Oneida, OD [address] [place] [address] documented as of this encounter Goals Goal [...] documented as of this encounter Care Teams Writing Center Director Relationship Specialty Start Date End Date Juan Miguel Tinajero MD 505 [place] [address] PCP - General Internal Medicine 05/28/18 Juan Cordova, PharmD 505 [place] [address] Pharmacist Internal Medicine 07/14/22 Yvonne Knox Records Management ManagerHat Body Inspector 02/15/23 Yvonne Knox Records Management ManagerHat Body Inspector 04/09/24 documented as of this encounter
--- OUTSIDE RECORDS SUMMARY | 2024-08-13 15:54 | XMS_ITS | Encounter Summary ---
Author Organization [employer] Address 75 [facility] 7t [place] [address] Care Team Providers Care Safety Sitter Name Role Phone Juan Miguel Tinajero MD Primary Care Provider +1- [phone] Juan Cordova PharmD Unavailable Unavail able Encounter Details Date Type Department Care Team (Latest Contact Info) Description 03/17/2022 Abstract [facility] CONVERSIONS Dental, Provider, DDS Social History Tobacco [...] 9:00 AM EDT Clinical Support [facility] CHC MED & PEDS 505 [place] [address] Elsa Barnett, JENS 505 [place] [address] 11/19/2024 10:00 AM EDT Office Visit [facility] OPTOMETRY [address] [place] [address] Oneida Louie, OD [address] [place] [address] documented as of this encounter Visit Diagnoses Not on filedocumented in this encounter Care Teams Safety Sitter Relationship Specialty Start Date End Date Juan Miguel Tinajero MD 505 [place] [address] PCP - General Internal Medicine 05/28/18 Juan Cordova, Benjamin 505 [place] [address] Pharmacist Internal Medicine 07/14/22 Yvonne Knox Director Of Cardiac RehabilitationDesign Engineer Marine Equipment 02/15/23 Yvonne Knox Director Of Cardiac RehabilitationDesign Engineer Marine Equipment 04/09/24 documented as of this encounter
--- OUTSIDE RECORDS SUMMARY | 2024-08-13 15:54 | XMS_ITS | Encounter Summary ---
Author Organization [employer] Address 75 [facility] 7t [place] [address] Care Team Providers Care Clearing Inspector Name Role Phone Juan Miguel Tinajero MD Primary Care Provider +1- [phone] Juan Cordova PharmD Unavailable Unavail able Reason for Visit * Reason Comments Med Refill Encounter Details Date Type Department Care Team (Late Contact Info) Description 12/18/2022 Refill [facility] CHC MED & PEDS 505 [place], [place] [phone] Juan Miguel Tinajero MD 505 [place] [address] Back pain, unspecified back location, unspecified back [...] [facility] [address] [place] [address] Elsa Barnett, JENS 505 [place] [address] 11/19/2024 10:00 AM EDT Office Visit [facility] OPTOMETRY [address] [place] [address] LibanOneida chavez, OD [address] [place] [address] documented as of this encounter Goals Goal [...] documented as of this encounter Care Teams Clearing Inspector Relationship Specialty Start Date End Date Juan Miguel Tinajero MD 505 [place] [address] PCP - General Internal Medicine 05/28/18 Juan Cordova, PharmD 505 [place] [address] Pharmacist Internal Medicine 07/14/22 Yvonne Knox Lead Network ArchitectHospitality Aide 02/15/23 Yvonne Knox Lead Network ArchitectHospitality Aide 04/09/24 documented as of this encounter
--- OUTSIDE RECORDS SUMMARY | 2024-08-13 15:54 | XMS_ITS | Encounter Summary ---
Author Organization [employer] Address 75 [facility] 7t [place] [address] Care Team Providers Care Clamp Truck Driver Name Role Phone Juan Miguel Tinajero MD Primary Care Provider +1 [phone] Juan Cordova PharmD Unavailable Unavail able Reason for Visit * Reason Comments Med Refill Encounter Details Date Type Department Care Team ([facility] st Contact Info) Description 07/28/2024 Refill [facility] CHC MED & PEDS 505 [place], [place] [phone] Juan Miguel Tinajero MD 505 [place] [address] Chronic right shoulder pain; Pain in right [...] Description 09/09/2024 9:00 AM EDT Clinical Support [facility] CHC MED & PEDS 505 [place] [address] Elsa Barnett, RN 505 [place] [address] 11/19/2024 10:00 AM EDT Office Visit [facility] OPTOMETRY [address] [place] [address] Oneida Louie, OD [address] [place] [address] documented as of this encounter Goals Goal [...] documented as of this encounter Care Teams Clamp Truck Driver Relationship Specialty Start Date End Date Juan Miguel Tinajero MD 505 [place] [address] PCP - General Internal Medicine 05/28/18 Juan Cordova PharmD 505 [place] [address] Pharmacist Internal Medicine 07/14/22 Yvonne Knox News SpecialistManager Business 02/15/23 Yvonne Knox News SpecialistManager Business 04/09/24 documented as of this encounter
--- OUTSIDE RECORDS SUMMARY | 2024-08-13 15:54 | XMS_ITS | Encounter Summary ---
Author Organization [employer] Address 75 [facility] 7t [place] [address] Care Team Providers Care Skilled Nursing Facilities Professional Name Role Phone Juan Miguel Tinajero MD Primary Care Provider +1 [phone] Juan Cordova PharmD Unavailable Unavail able Reason for Visit * Reason Comments Med Refill Encounter Details Date Type Department Care Team ([facility] st Contact Info) Description 09/21/2023 Refill [facility] CHC MED & PEDS 505 [place], [place] [phone] Juan Miguel Tinajero MD 505 [place] [address] Chronic right shoulder pain; Pain in right [...] Description 09/09/2024 9:00 AM EDT Clinical Support [facility] CHC MED & PEDS 505 [place] [address] Elsa Barnett, RN 505 [place] [address] 11/19/2024 10:00 AM EDT Office Visit [facility] OPTOMETRY [address] [place] [address] Liban, Oneida, OD [address] [place] [address] documented as of this encounter Goals Goal [...] documented as of this encounter Care Teams Skilled Nursing Facilities Professional Relationship Specialty Start Date End Date Juan Miguel Tinajero MD 505 [place] [address] PCP - General Internal Medicine 05/28/18 Juan Cordova PharmD 505 [place] [address] Pharmacist Internal Medicine 07/14/22 Yvonne Knox Hurl ShakerDrill Bit Sharpener 02/15/23 Yvonne Knox Hurl ShakerDrill Bit Sharpener 04/09/24 documented as of this encounter
--- OUTSIDE RECORDS SUMMARY | 2024-08-13 15:54 | XMS_ITS | Clinical Summary ---
Author Organization [facility] Address [address] [facility] [address] 0 [place] [address] Phone Care Team Providers Care Microwave Oven Assembler Name Role Phone Juan Miguel Tinajero MD Primary Care Provider +1- [phone] Allergies No known active allergies Medications Acetaminophen [...] chronic back and shoulder pain. Gets regular DIRECTOR OF OUTREACH follow up and has Narcan prescribed. F/U [...] Office Visit [facility] [address] [address] Aj Grajeda MD [address] [address] Health Maintenance Due Date Last [...] AM EDT) Hemoglobin A1C 6.6(H) (4.0-5.6) % [facility] Comment: MONITORING: In known diabetic patients, hemoglobin A1c targets should be discussed with health care provider. DIAGNOSTIC USE: ??The [place] Diabetes Association (ADA) and the World Health [...] Supplement 1 Testing performed or reported by [facility], a Service of [facility], [address] [place] [address] Zachary Sanders MD, Surgeon Assistant [facility]# [id number] Blood (Blood, Venous) 03/21/2023 8:20 AM EDT 03/21/2023 8:25 AM EDT us Aj Grajeda MD LAB BLOOD ORDERABLES Final Re sult [facility] from Last 3 Months or Most Recently Relevant to Health Maintenance [place] Care Teams Microwave Oven Assembler Relationship Specialty Start Date End Date Juan Miguel Tinajero MD [address] [place] [address] PCP - General Internal Medicine 02/11/21
--- OUTSIDE RECORDS SUMMARY | 2024-08-13 15:54 | XMS_ITS | Clinical Summary ---
Author Organization [facility] Address [address] [place] [address] Care Team Providers Care Strategic Marketing Specialist Name Role Phone Unavailable Primary Care Provider [...]
--- OUTSIDE RECORDS SUMMARY | 2024-08-13 15:54 | XMS_ITS | Encounter Summary ---
Author Organization [employer] Address 75 [facility] 7t [place] [address] Care Team Providers Care Shuttle Car Operator Name Role Phone Juan Miguel Tinajero MD Primary Care Provider +1 [phone] Juan Cordova PharmD Unavailable Unavail able Encounter Details Date Type Department Care Team (Late st Contact Info) Description 03/27/2023 Abstract [facility] MEDICINE [address] [place] [address] Juan Miguel Tinajero MD 505 [place], [place] [phone] Social History Tobacco Use Types Packs/Day Years [...] Description 09/09/2024 9:00 AM EDT Clinical Support [facility] CHC MED & PEDS 505 [place] [address] Elsa Barnett, RN 505 [place], [place] [phone] 11/19/2024 10:00 AM EDT Office Visit [facility] OPTOMETRY [address] [place] [address] Liban, Oneida, OD [address] [place] [address] documented as of this encounter Goals Goal [...] documented as of this encounter Care Teams Shuttle Car Operator Relationship Specialty Start Date End Date Juan Miguel Tinajero MD 505 [place] [address] PCP - General Internal Medicine 05/28/18 Juan Cordova, PharmD [address] [place] [address] Pharmacist Internal Medicine 07/14/22 Yvonne Knox Community Development TechnicianSales Contractor 02/15/23 Yvonne Knox Community Development TechnicianSales Contractor 04/09/24 documented as of this encounter
--- OUTSIDE RECORDS SUMMARY | 2024-08-13 15:54 | XMS_ITS | Encounter Summary ---
Author Organization [facility] [facility] Address 75 [facility] 7t [place] [address] Care Team Providers Care Logistics Vice President Name Role Phone Juan Miguel Tinajero MD Primary Care Provider +1- [phone] Juan Cordova PharmD Unavailable Unavail able Encounter Details Date Type Department Care Team ([facility] st Contact Info) Description 08/08/2024 Population Health Risk Score [facility] (C3) Department [address] [phone] Provider, Population Health Generic Social History Tobacco Use Types Packs/Day Years [...] Description 09/09/2024 9:00 AM EDT Clinical Support [facility] CHC MED & PEDS 505 [place] [address] Elsa Barnett, RN 505 [place] [address] 11/19/2024 10:00 AM EDT Office Visit [facility] OPTOMETRY [address] [place] [address] Oneida Louie, OD [address] [place] [address] documented as of this encounter Goals Goal Patient Goal Type Associated Problems Recent Progress Patient-Stated? Author Blood Pressure < 140/90 Blood Pressure 145/90(2024 10:18 AM EST) No DellogJuan mtz, PharmD Hemoglobin A1c < 7 Result Component 6.4( 9:31 AM EST) No Dellogono Juan, PharmD documented as of this encounter Visit Diagnoses Not on filedocumented in this encounter Additional Health Concerns Assessment Noted Time PHQ-9 Depression Total Score: 0 10/30/19 10:10 AM EDT documented as of this encounter Care Teams Logistics Vice President Relationship Specialty Start Date End Date Juan Miguel Tinajero MD 505 [place] [address] PCP - General Internal Medicine 05/28/18 Juan Cordova, EbonieD 505 [facility] [place] [address] Pharmacist Internal Medicine 07/14/22 Yvonne Knox Vinyl Flooring InstallerConstruction Equipment Technician 02/15/23 Yvonne Knox Vinyl Flooring InstallerConstruction Equipment Technician 04/09/24 documented as of this encounter
--- OUTSIDE RECORDS SUMMARY | 2024-08-13 15:54 | XMS_ITS | Encounter Summary ---
Author Organization [employer] Address 75 [facility] 7t [place] [address] Care Team Providers Care Signing Agent Name Role Phone Juan Miguel Tinajero MD Primary Care Provider +1 [phone] Juan Cordova PharmD Unavailable Unavail able Encounter Details Date Type Department Care Team ([facility] st Contact Info) Description 10/02/2023 Telephone [facility] MEDICINE [address] [place] [address] Juan Miguel Tinajero MD 505 [place], [place] [phone] Social History Tobacco Use Types Packs/Day Years [...] 9:00 AM EDT Clinical Support [facility] CHC MED & PEDS 505 [place] [address] Elsa Barnett RN 505 [place] [address] 11/19/2024 10:00 AM EDT Office Visit [facility] OPTOMETRY [address] [place] [address] Oneida Louie, OD [address] [place] [address] documented as of this encounter Goals Goal [...] documented as of this encounter Care Teams Signing Agent Relationship Specialty Start Date End Date Juan Miguel Tinajero MD 505 [place] [address] PCP - General Internal Medicine 05/28/18 Juan Cordova, EbonieD [address] [place] [address] Pharmacist Internal Medicine 07/14/22 Yvonne Knox Electrician PowerhouseBall Rolling Machine Operator 02/15/23 Yvonne Knox Electrician PowerhouseBall Rolling Machine Operator 04/09/24 documented as of this encounter
--- OUTSIDE RECORDS SUMMARY | 2024-08-13 15:54 | XMS_ITS | Encounter Summary ---
Author Organization [employer] Address [address] [facility] 7t [place] [address] Care Team Providers Care Chyron Operator Name Role Phone Juan Miguel Tinajero MD Primary Care Provider +1 [phone] Juan Cordova PharmD Unavailable Unavail able Reason for Visit * Reason Onset Date Comments ER Follow-up 07/20/2023 Encounter Details Date Type Department Care Team ([facility] st Contact Info) Description 07/20/[address] [facility] MEDICINE [address] [place] [address] Juan Miguel Tinajero MD [address] [place] [address] ER Follow-up Social History Tobacco Use Types [...] AM EST TC placed to patient via [employer] regarding message below. Patient reports that 8 days ago, he had a fall and hit his L side and was evaluated at [facility] ED. They said he didn't break anything, but he is continuing to have L-sided pain in the area of his ribs. He denies bruising in the area,and he says that aspirin, tramadol, and another anti-inflammatory that was prescribed are not helping. Denies other symptoms. Advised to go to [facility] today for evaluation and patient agrees. [...] ED visit on : Date: 07/12/2023 Hospital: [facility] Seen for: Fall Patient advised will forward to team nurse for follow up. Symptom: Chest Injury Outcome: Talk to a nurse or provider within 15 minutes Reason: Left Rib The caller accepted this outcome Yvonne Roseline [phone] * Telephone Encounter - Tsering Pastrana - 07/20/2023 11:40 AM EST Patient calling to report ED visit on : Date: 07/12/2023 Hospital: [facility] Seen for: Fall Patient advised will forward to team nurse for follow up. Symptom: Chest Injury Outcome: Talk to a nurse or provider within 15 minutes Reason: Left Rib The caller accepted this outcome Yvonne [facility] [phone] documented in this encounter Plan of Treatment Upcoming Encounters Date Type Department Care Team (Late st Contact Info) Description 09/09/2024 9:00 AM EDT Clinical Support [facility] CHC MED & PEDS [address] [place], [place] [phone] Elsa Barnett RN [address] [place], [place] [phone] 11/19/2024 10:00 AM EDT Office Visit [facility] OPTOMETRY [address] [place] [address] LibanOneida chavez, OD [address] [place] [address] documented as of this encounter Goals Goal [...] documented as of this encounter Care Teams Chyron Operator Relationship Specialty Start Date End Date Juan Miguel Tinajero MD [address] [place] [address] PCP - General Internal Medicine 05/28/18 JefelogKaleb mtzis, PharmD [address] [place] [address] [place] [address] Pharmacist Internal Medicine 07/14/22 Yvonne Knox Traffic AssistantGreeting Card Maker 02/15/23 Yvonne Knox Traffic AssistantGreeting Card Maker 04/09/24 documented as of this encounter
--- OUTSIDE RECORDS SUMMARY | 2024-08-13 15:54 | XMS_ITS | Encounter Summary ---
Author Organization [employer] Address [address] [facility] 7t [place] [address] Care Team Providers Care Category Analyst Name Role Phone Juan Miguel Tinajero MD Primary Care Provider +1 [phone] Juan Cordova PharmD Unavailable Unavail able Reason for Visit * Reason Comments Med Refill Encounter Details Date Type Department Care Team ([facility] Contact Info) Description 10/31/2023 Refill [facility] CHC MED & PEDS [address] [place], [place] [phone] Juan Miguel Tinajero MD [address] [place] [address] Sore throat; Bacterial conjunctivitis; Chronic pain syndrome [...] Description 09/09/2024 9:00 AM EDT Clinical Support [facility] CHC MED & PEDS [address] [place] [address] Elsa Barnett, JENS [address] [place] [address] 11/19/2024 10:00 AM EDT Office Visit [facility] OPTOMETRY [address] [place] [address] LibanOneida, OD [address] [place] [address] documented as of this encounter Goals Goal [...] documented as of this encounter Care Teams Category Analyst Relationship Specialty Start Date End Date Juan Miguel Tinajero MD 505 [facility] [place] [address] PCP - General Internal Medicine 05/28/18 Juan Cordova PharmD 505 [facility] [place] [address] Pharmacist Internal Medicine 07/14/22 Yvonne Knox Field RepConfiguration Management Advisor 02/15/23 Yvonne Knox Field RepConfiguration Management Advisor 04/09/24 documented as of this encounter
--- OUTSIDE RECORDS SUMMARY | 2024-08-13 15:54 | XMS_ITS | Encounter Summary ---
Author Organization [employer] Address [address] [facility] 7t [place] [address] Care Team Providers Care Roller Printing Supervisor Name Role Phone Juan Miguel Tinajero MD Primary Care Provider +1- [phone] Juan Cordova PharmD Unavailable Unavail able Encounter Details Date Type Department Care Team ([facility] st Contact Info) Description 06/14/2023 Orders Only [facility] CHC MED & PEDS [address] [place], [place] [phone] Juan Miguel Tinajero MD [address] [place] [address] Benign essential hypertension Social History Tobacco Use [...] Upcoming Encounters Date Type Department Care Team ([facility] st Contact Info) Description 09/09/2024 9:00 AM EDT Clinical Support [facility] CHC MED & PEDS [address] [place] [address] Elsa Barnett, JENS [address] [place] [address] 11/19/2024 10:00 AM EDT Office Visit [facility] OPTOMETRY [address] [place] [address] Oneida Louie, OD [address] [place] [address] documented as of this encounter Goals Goal [...] documented as of this encounter Care Teams Roller Printing Supervisor Relationship Specialty Start Date End Date Juan Miguel Tinajero MD [address] [place] [address] PCP - General Internal Medicine 05/28/18 Juan Cordova, EbonieD 505 [facility] [place] [address] Pharmacist Internal Medicine 07/14/22 Yvonne Knox Logistics Team LeaderFurnace Setter 02/15/23 Yvonne Knox Logistics Team LeaderFurnace Setter 04/09/24 documented as of this encounter
--- OUTSIDE RECORDS SUMMARY | 2024-08-13 15:54 | XMS_ITS | Encounter Summary ---
Author Organization [email or web address] Address [address] [facility] 7t [place] [address] Care Team Providers Care Crew Attendant Name Role Phone Juan Miguel Tinajero MD Primary Care Provider +1 [phone] Juan Cordova PharmD Unavailable Unavail able Reason for Visit * Reason Comments Med Refill Encounter Details Date Type Department Care Team ([facility] Contact Info) Description 03/28/2024 Refill [facility] CHC MED & PEDS [address] [place], [place] [phone] Juan Miguel Tinajero MD [address] [place] [address] Sore throat; Bacterial conjunctivitis; Chronic pain syndrome [...] Description 09/09/2024 9:00 AM EDT Clinical Support [facility] CHC MED & PEDS [address] [place] [address] Elsa Barnett, RN [address] [place] [address] 11/19/2024 10:00 AM EDT Office Visit [facility] OPTOMETRY [address] [place] [address] Liban, Oneida, OD [address] [place] [address] documented as of this encounter Goals Goal [...] documented as of this encounter Care Teams Crew Attendant Relationship Specialty Start Date End Date Juan Miguel Tinajero MD 505 [place] [address] PCP - General Internal Medicine 05/28/18 Juan Cordova PharmD 505 [place] [address] Pharmacist Internal Medicine 07/14/22 Yvonne Knox Supervisor InsecticideLiner Checker 02/15/23 Yvonne Knox Supervisor InsecticideLiner Checker 04/09/24 documented as of this encounter
--- OUTSIDE RECORDS SUMMARY | 2024-08-13 15:54 | XMS_ITS | Encounter Summary ---
Author Organization [employer] Address [address] [facility] 7t [place] [address] Care Team Providers Care Marketing Content Specialist Name Role Phone Juan Miguel Tinajero MD Primary Care Provider +1 [phone] Juan Cordova PharmD Unavailable Unavail able Reason for Visit * Reason Comments Med Refill Encounter Details Date Type Department Care Team ([facility] Contact Info) Description 08/05/2024 Refill [facility] CHC MED & PEDS [address] [place], [place] [phone] Juan Miguel Tinajero MD [address] [place] [address] Peripheral arterial occlusive disease (CMS/HCC) Social History [...] 09/09/2024 9:00 AM EDT Clinical Support [facility] CHC MED & PEDS [address] [place] [address] Elsa Banrett, JENS [address] [place] [address] 11/19/2024 10:00 AM EDT Office Visit [facility] OPTOMETRY [address] [place] [address] Oneida Louie, OD [address] [place] [address] documented as of this encounter Goals Goal [...] documented as of this encounter Care Teams Marketing Content Specialist Relationship Specialty Start Date End Date Juan Miguel Tinajero MD 505 [facility] [place] [address] PCP - General Internal Medicine 05/28/18 Juan Cordova, EbonieD 505 [place] [address] Pharmacist Internal Medicine 07/14/22 Yvonne Knox Pill MakerDowel Pointer 02/15/23 Yvonne Knox Pill MakerDowel Pointer 04/09/24 documented as of this encounter
== END 2024-08-13 14:00 | disposition home or self-care (01) ==
LOC: HO.HUSH 13:29
PROVIDERS: PCP Internal Medicine; Visit Provider Nurse Practitioner Family
DX: E11.69 Type 2 diabetes mellitus with other specified complication (principal); N52.1 Erectile dysfunction due to diseases classified elsewhere; Z80.42 Family history of malignant neoplasm of prostate; R97.20 Elevated prostate specific antigen [PSA]; Z13.9 Encounter for screening, unspecified
CPT/HCPCS: 99213

== ENCOUNTER → 2024-08-13 13:28 | Outpatient (BNVA) | payer MEDICAID, SELFPAY | PROVIDERS: PCP Internal Medicine; Visit Provider Nurse Practitioner Family | DX: E11.69 Type 2 diabetes mellitus with other specified complication (principal); N52.1 Erectile dysfunction due to diseases classified elsewhere; R97.20 Elevated prostate specific antigen [PSA]; K59.04 Chronic idiopathic constipation; Z80.42 Family history of malignant neoplasm of prostate | CPT/HCPCS: 81003; 99212 ==

== ENCOUNTER 2024-08-20 13:49 | Outpatient (AMB) | payer MEDICAID, SELFPAY ==
--- NOTE | 2024-08-20 14:48 | MHC.OFFVIS ---
Vital Signs 08/20/24 14:49 Height 5 ft 4 in Weight 197 lb 8.547 oz BMI 33.9 BP 120/72 Blood Pressure Location Lt brachial Position Sitting Pulse 68 Pulse Source Pulse Oximeter Intake Visit Reasons: 3 mth s/p mibi Intake Note: 3 mth f/up mibi Marketing Recruiter Required: Yes Marketing Recruiter Language: Abstract Clerk Name: [id number] Accompanied by: Self / Same As Patient Allergies No Known Allergies Allergy (Verified 08/13/24 14:19) Medication List - Last Reconciled 08/20/24 by Bassam Ogden MD acetaminophen 1,000 mg PO Q6H PRN albuterol sulfate 5 mg inhalation Q4H PRN amlodipine (Norvasc) 10 mg PO DAILY aspirin (Adult Low Dose Aspirin) 81 mg PO DAILY atorvastatin 80 mg PO BEDTIME bisacodyl (Dulcolax (bisacodyl)) 10 mg (2 x 5 mg) PO BEDTIME bisacodyl (Dulcolax (bisacodyl)) 20 mg (4 x 5 mg) PO ONCE 1 day blood sugar diagnostic (FreeStyle Lite Strips) As directed carvedilol 6.25 mg PO BID cholecalciferol (vitamin D3) 50 mcg PO QAM cilostazol 100 mg PO BID docusate sodium (Colace) 100 mg PO BID 30 days famotidine (Pepcid) 20 mg PO BEDTIME fluticasone propionate 110 mcg/actuation 2 puffs inhalation BID gabapentin 300 mg PO DAILY glucose (Dex4 Glucose) 8 grams PO Q15M PRN insulin glargine (Lantus Solostar U-100 Insulin) 34 units subcut QPM lancets (TRUEplus Lancets) As directed pantoprazole 20 mg PO QAM pen needle, diabetic (Pentips Pen Needle) As directed polyethylene glycol 3350 17 grams PO DAILY risperidone 3 mg PO BEDTIME tirzepatide (Mounjaro) 5 mg subcut QWEEK HPI Comments Details: 64-year-old gentleman who is referred for preoperative cardiovascular risk assessment. He has background history of coronary artery disease with multiple stents placed while he was in [facility]. He had workup done at [facility] previously and in 2016 he underwent cardiac catheterization when he presented with chest pain. Cardiac catheterization showed 90% stenosis in 2nd diagonal branch, 60% OM2 stenosis and moderate diffuse disease in the right coronary artery with mild InStent restenoses in the mid RCA. There is also a 60% stenosis noticed in the right posterior descending artery. He was medically managed at that stage. His echocardiography at that time showed normal biventricular function. Subsequent to that in 2017 he had Lexiscan which showed no fixed or reversible perfusion defect. He has been experiencing diarrhea for months. He has developed dehydration due to that. He has no shortness of breath. He does get chest discomfort and recently had chest tightness for which he took nitroglycerin. He said symptoms were similar to his pre PCI chest discomfort. He underwent Lexiscan which showed fixed basal to mid inferior defect and t.i.d.. He was taken for diagnostic angiogram where we noticed occluded mid right coronary artery with zsyn-wj-nkmcl collaterals and 50% 2nd diagonal stenosis. We decided to medically manage him. He was advised to proceed with endoscopy with intermediate risk. He returns and denies any chest discomfort shortness of breath. He had lower extremity bypass surgery before and is following with vascular surgery at [facility]. He wishes to see someone at [facility] and we will refer him. 06/03/2023: He returns for follow-up. He has been following with Dr. Whitney. He has seen Urology and was given a prescription for Cialis for erectile dysfunction. He also is on isosorbide mononitrate 60 mg daily. Denying any anginal symptoms. He was advised to stop the isosorbide mononitrate. 09/19/23: He is here for follow-up. He had diarrhea for couple of days and has been feeling weak and dizzy. He is saying diarrhea is getting better now. No fevers or chills. No blood in stool. Blood pressure is normal. 01/23/2024: He is here for follow-up. Feeling better. No chest pains or shortness of breath. Blood pressure is well controlled. He is taking aspirin, Plavix and cilostazol. He has peripheral vascular disease. I have explained to him that he should not be taking all 3 of his medications because of bleeding risk. He is undergoing right shoulder surgery and stopping Plavix. I have advised him not to resume Plavix after surgery and discontinue aspirin and cilostazol. 05/05/2024: On follow-up today, he is complaining of some left-sided chest tightness which happened at rest for 15 minutes few days ago. He has not had any further discomfort in the chest. Physically not active. He has known history of RCA MEMBERSHIP SECRETARY and moderate disease in the PDA in the past. He also had 60% OM2 and 90% diagonal stenosis which was a small-sized vessel. He had right shoulder surgery and has recovered from that. He was advised to stop the Plavix and he is taking aspirin and cilostazol at this point. 08/20/2024: He is here for follow-up. On last visit he complained of chest discomfort and underwent stress testing. He was able to exercise only for 40 seconds and stopped because of pain in his hips and knees. Lexiscan was done which showed inferior inferolateral perfusion defect. On follow-up he is denying any chest discomfort. He has not been exercising and I have advised him that as the weather is changing his should come more physically active. [facility] Medical History Arthritis Asthma Peripheral arterial occlusive disease Hyperlipidemia IBS (irritable bowel syndrome) Benign prostatic hyperplasia without lower urinary tract symptoms GERD (gastroesophageal reflux disease) Chronic kidney disease Acute kidney failure Abdominal bloating Painful arc syndrome of right shoulder Chronic idiopathic constipation Tubular adenoma Myocardial infarct, old Diabetes PVD (peripheral vascular disease) CAD (coronary artery disease) Family history of prostate cancer Scrotal swelling Elevated PSA Surgical History Hx of aorto-femoral bypass History of coronary artery stent placement Hx of coronary angioplasty Hx of ligation of vein History of esophagogastroduodenoscopy (EGD) Hx of colonoscopy Hx of arthroscopic knee surgery History of surgery History of vascular surgery History of cardiac cath Family History Maternal Grandmother Diabetes Paternal Grandmother Diabetes Brother Diabetes Mother No problems noted. 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 home services: Yes (HOSPICE COORDINATOR) Alcohol intake: never Patient Tobacco Use Status: Former Tobacco user Years Smoked: 35+ Current occupational status: disabled Current occupation: right hand dominant Review of Systems Const Denies chills, Denies fatigue, Denies fever(s), Denies frequent falls, Denies weakness, Denies weight gain and Denies weight loss ENT Denies dizziness Card Denies chest pain, Denies leg edema, Denies lightheadedness, Denies palpitations, Denies dyspnea and Denies dyspnea on exertion Resp Denies cough, Denies dyspnea and Denies dyspnea on exertion GI Denies hematochezia Musc Denies abnormal gait, Denies muscle weakness, Denies numbness, Denies radiating pain into limb and Denies tingling Neuro Denies abnormal gait, Denies dizziness, Denies frequent falls, Denies numbness, Denies tingling and Denies weakness Endo Denies fatigue and Denies palpitations Physical Exam Vital Signs: Last Vital Signs Pulse 68 08/20/24 14:49 BP 120/72 08/20/24 14:49 BMI result Body Mass Index 33.9 GENERAL APPEARANCE: in no acute distress, pleasant. Obese. NECK: no carotid bruit, no jugular venous distention. SKIN: no suspicious lesions, warm and dry. HEART: no murmurs, regular rate and rhythm. LUNGS: clear to auscultation bilaterally. ABDOMEN: soft, nontender. EXTREMITIES: no edema. PERIPHERAL PULSES: equal. NEUROLOGIC: No gross deficits, AAO X 3 Assessment & Plan Assessment & Plan (1) CAD (coronary artery disease): Code(s): I25.10 - Atherosclerotic heart disease of [place] coronary artery without angina pectoris Category: Medical (2) Abnormal stress test: Code(s): R94.39 - Abnormal result of other cardiovascular function study Category: Medical Plan Very pleasant 64 year gentleman who is here for follow-up. He has known history of RCA MEMBERSHIP SECRETARY and severe diagonal stenosis. Looking at the angiogram he had multiple stents in the right coronary artery with a full metal jacket and mid RCA MEMBERSHIP SECRETARY was noted. He had good olhi-wz-pksid collaterals at that time. Recent nuclear stress test is showing inferior and inferolateral perfusion defect which goes along with RCA MEMBERSHIP SECRETARY. He is denying any exertional symptoms on follow-up. He is taking aspirin and cilostazol currently. I have advised him to become physically active. If he complained of consistent exertional chest discomfort then he may need diagnostic angiography. Thank you for allowing me to participate in the care of your patient. Please feel free to contact me if you have any questions. Coding Level of Care Code Est Pt Level 4 (97463) Complex EM visit Add On G2211 Diagnoses CAD (coronary artery disease) I25.10 Abnormal stress test R94.39
[2024-08-20 14:49] VITALS: BP 120/72; PULSE 68; BMI 33.9
== END 2024-08-20 15:13 | disposition home or self-care (01) ==
LOC: HO.HCS 13:50
PROVIDERS: PCP Internal Medicine; Visit Provider Internal Medicine Cardiovascular Disease
DX: I25.10 Atherosclerotic heart disease of native coronary artery without angina pectoris (principal); R94.39 Abnormal result of other cardiovascular function study
CPT/HCPCS: 99214

== ENCOUNTER → 2024-08-20 13:49 | Outpatient (BNVA) | payer MEDICAID, SELFPAY | PROVIDERS: PCP Internal Medicine; Visit Provider Internal Medicine Cardiovascular Disease | DX: I25.10 Atherosclerotic heart disease of native coronary artery without angina pectoris (principal); R94.39 Abnormal result of other cardiovascular function study | CPT/HCPCS: 99212 ==

== ENCOUNTER 2024-09-23 07:01 | Outpatient (REF) | payer MEDICAID, SELFPAY ==
--- OUTSIDE RECORDS SUMMARY | 2024-09-23 07:04 | XMS_ITS | Encounter Summary ---
Author Organization [employer] Address 75 [facility] 7t [place] [address] Care Team Providers Care Tram Inspector Name Role Phone Juan Miguel Tinajero MD Primary Care Provider +1 [phone] Juan Cordova PharmD Unavailable Unavail able Reason for Visit * Reason Onset Date Comments Med Refill warehouse representative 09/07/2024 Encounter Details Date Type Department Care Team ([facility] st Contact Info) Description 09/07/[address] [facility] MED & PEDS [address] [place] [address] Juan Miguel Tinajero MD [address] [place] [address] Dyshydrosis Social History Tobacco Use Types Packs/Day Years [...] encounter Miscellaneous Notes * Telephone Encounter - Elsa Barnett RN - 09/08/2024 11:31 AM EDT TC to pt via S # [id number]. LOAN SPECIALIST appt on 09/09/24 converted to a televisit. documented in this encounter Plan of Treatment Upcoming Encounters Date Type Department Care Team (Late st Contact Info) Description 11/11/2024 9:00 AM EDT Clinical Support [facility] CHC MED & PEDS [address] [place] [address] Elsa Barnett, RN [address] [place] [address] 11/19/2024 10:00 AM EDT Office Visit [facility] OPTOMETRY [address] [place] [address] Oneida Louie, OD [address] [place] [address] documented as of this encounter Goals Goal Patient Goal Type Associated Problems Recent Progress Patient-Stated? Author Blood Pressure < 140/90 Blood Pressure 145/90(2024 10:18 AM EST) No Juan Cordova PharmD Hemoglobin A1c < 7 Result Component 6.4( 9:31 AM EST) No Juan Cordova, Benjamin documented as of this encounter Visit Diagnoses Diagnosis Dyshydrosis Dyshidrosis documented in this encounter Additional Health Concerns Assessment Noted Time PHQ-9 Depression Total Score: 0 10/30/19 10:10 AM EDT documented as of this encounter Care Teams Tram Inspector Relationship Specialty Start Date End Date Juan Miguel Tinajero MD [address] [place] [address] PCP - General Internal Medicine 05/28/18 Juan Cordova, PharmD [address] [place] [address] Pharmacist Internal Medicine 07/14/22 Yvonne Knox Liquor RunnerReconciliation Manager 02/15/23 Yvonne Knox Liquor RunnerReconciliation Manager 04/09/24 documented as of this encounter
--- OUTSIDE RECORDS SUMMARY | 2024-09-23 07:04 | XMS_ITS | Encounter Summary ---
Author Organization [facility] [employer] Address [address] [facility] [address] [place] [address] Care Team Providers Care Policy Issue Clerk Name Role Phone Juan Miguel Tinajero MD Primary Care Provider +1- [phone] Juan Cordova PharmD Unavailable Unavail able Encounter Details Date Type Department Care Team ([facility] Contact Info) Description 05/05/2022 Orders Only [facility] MEDICINE [address] [place], [place] [phone] Juan Miguel Tinajero MD [address] [place] [address] Social History Tobacco Use Types Packs/Day Years [...] Upcoming Encounters Date Type Department Care Team ([facility] Contact Info) Description 11/11/2024 9:00 AM EDT Clinical Support [facility] CHC MED & PEDS [address] [place] [address] Elsa Barnett, JENS [address] [place] [address] 11/19/2024 10:00 AM EDT Office Visit [facility] OPTOMETRY [address] [place] [address] Oneida Louie, OD [address] [place] [address] documented as of this encounter Goals Goal Patient Goal Type Associated Problems Recent Progress Patient-Stated? Author Hemoglobin A1c < 7 Result Component 6.4(05/14/2024 9:31 AM EST) No Juan Cordova, PharmD documented as of this encounter Visit Diagnoses Not on filedocumented in this encounter Care Teams Policy Issue Clerk Relationship Specialty Start Date End Date Juan Miguel Tinajero MD [address] [place] [address] PCP - General Internal Medicine 05/28/18 Juan Cordova, PharmD [address] [place] [address] Pharmacist Internal Medicine 07/14/22 Yvonne Knox Yarn ConditionerCompany Manager 02/15/23 Yvonne Knox Yarn ConditionerCompany Manager 04/09/24 documented as of this encounter
--- OUTSIDE RECORDS SUMMARY | 2024-09-23 07:04 | XMS_ITS | Encounter Summary ---
Author Organization [employer] Address [address] [facility] 7t [place] [address] Care Team Providers Care Aluminum Siding Mechanic Name Role Phone Juan Miguel Tinajero MD Primary Care Provider +1 [phone] Juan Cordova PharmD Unavailable Unavail able Reason for Visit * Reason Onset Date Comments Pre-op Visit 01/07/2024 Encounter Details Date Type Department Care Team ([facility] st Contact Info) Description 01/07/2024 Telephone [facility] [address] [place] [address] Juan Miguel Tinajero MD 505 [place] [address] Pre-op Visit Social History Tobacco Use Types [...] PM EDT Outgoing call to [place] at [facility] calling to inform pt agreed to come [...] Yes Surgeon's name: lawanda kingsley Facility name: [facility] Surgeon's office number: [phone] Surgeon's office fax number: [phone] Contact name: [place] Last office note from surgeon requested: Yes documented in this encounter Plan of Treatment Upcoming Encounters Date Type Department Care Team ([facility] st Contact Info) Description 11/11/2024 9:00 AM EDT Clinical Support [facility] MED & PEDS 505 [place] [address] Elsa Barnett, RN 505 [place] [address] 11/19/2024 10:00 AM EDT Office Visit [facility] [address] [place] [address] Liban Oneida, OD [address] [place] [address] documented as of this encounter Goals Goal [...] documented as of this encounter Care Teams Aluminum Siding Mechanic Relationship Specialty Start Date End Date Juan Miguel Tinajero MD 505 [place] [address] PCP - General Internal Medicine 05/28/18 Juan Cordova, PharmD 505 [place] [address] Pharmacist Internal Medicine 07/14/22 Yvonne Knox Automotive Parts InterpreterPublication Distributor 02/15/23 Yvonne Knox Automotive Parts InterpreterPublication Distributor 04/09/24 documented as of this encounter
--- OUTSIDE RECORDS SUMMARY | 2024-09-23 07:04 | XMS_ITS | Encounter Summary ---
Author Organization [employer] Address 75 [facility] 7t [place] [address] Care Team Providers Care Seating Captain Name Role Phone Juan Miguel Tinajero MD Primary Care Provider +1- [phone] Juan Cordova PharmD Unavailable Unavail able Encounter Details Date Type Department Care Team ([facility] st Contact Info) Description 11/09/2023 Orders Only [facility]EDS 505 [place], [place] [phone] Juan Miguel Tinajero MD 505 [place] [address] Social History Tobacco Use Types Packs/Day Years [...] Description 11/11/2024 9:00 AM EDT Clinical Support [facility] 505 [place] [address] Elsa Barnett, JENS 505 [place] [address] 11/19/2024 10:00 AM EDT Office Visit [facility] [address] [place] [address] Oneida Louie, OD [address] [place] [address] documented as of this encounter Goals Goal [...] documented as of this encounter Care Teams Seating Captain Relationship Specialty Start Date End Date Juan Miguel Tinajero MD [address] [place] [address] PCP - General Internal Medicine 05/28/18 Juan Cordova, PharmD [address] [place] [address] [place] Garcia [address] Pharmacist Internal Medicine 07/14/22 Yvonne Knox Elementary Science TeacherPoultry Helper 02/15/23 Yvonne Knox Elementary Science TeacherPoultry Helper 04/09/24 documented as of this encounter
--- OUTSIDE RECORDS SUMMARY | 2024-09-23 07:04 | XMS_ITS | Encounter Summary ---
Author Organization [employer] Address [address] [facility] 7t [place] [address] Care Team Providers Care Wheel Tuner Name Role Phone Juan Miguel Tinajero MD Primary Care Provider +1- [phone] Juan Cordova PharmD Unavailable Unavail able Reason for Visit * Reason Comments Med Refill Encounter Details Date Type Department Care Team (Late Contact Info) Description 08/19/2022 Refill [facility] MED & PEDS 505 [place], [place] [phone] Juan Miguel Tinajero MD 505 [place] [address] Seasonal allergic rhinitis due to other allergic [...] Upcoming Encounters Date Type Department Care Team ([facility] Contact Info) Description 11/11/2024 9:00 AM EDT Clinical Support [facility] MED & PEDS [address] [place] [address] Elsa Barnett, RN [address] [place] 11/19/2024 10:00 AM EDT Office Visit [facility] OPTOMET[facility] [address] [place] [address] Oneida Louie, OD [address] [place] [address] documented as of this encounter Goals Goal [...] documented as of this encounter Care Teams Wheel Tuner Relationship Specialty Start Date End Date Juan Miguel Tinajero MD 505 [place] [address] PCP - General Internal Medicine 05/28/18 Juan Cordova, PharmD 505 [place] [address] Pharmacist Internal Medicine 07/14/22 Yvonne Knox Retail Assistant Store ManagerCell Preparer 02/15/23 Yvonne Knox Retail Assistant Store ManagerCell Preparer 04/09/24 documented as of this encounter
--- OUTSIDE RECORDS SUMMARY | 2024-09-23 07:04 | XMS_ITS | Encounter Summary ---
Author Organization [employer] Address 75 [facility] 7t [place] [address] Care Team Providers Care Material Combiner Name Role Phone Juan Miguel Tinajero MD Primary Care Provider +1- [phone] Juan Cordova PharmD Unavailable Unavail able Encounter Details Date Type Department Care Team ([facility] st Contact Info) Description 06/14/2023 Orders Only [facility] CH[facility] MED & PEDS 505 [place], [place] [phone] Juan Miguel Tinajero MD [address] [place] [address] Benign essential hypertension Social History Tobacco Use [...] Upcoming Encounters Date Type Department Care Team ([facility] st Contact Info) Description 11/11/2024 9:00 AM EDT Clinical Support [facility] MED & PEDS 505 [place] [address] Elsa Barnett, JENS 505 [place] [address] 11/19/2024 10:00 AM EDT Office Visit [facility] OPT[facility] [address] [place] [address] Oneida Louie, OD [address] [place] [address] documented as of this encounter Goals Goal [...] documented as of this encounter Care Teams Material Combiner Relationship Specialty Start Date End Date Juan Miguel Tinajero MD [address] [place] [address] PCP - General Internal Medicine 05/28/18 Juan Cordova, EbonieD 505 [facility] [place] Garcia [address] Pharmacist Internal Medicine 07/14/22 Yvonne Knox Secondary History TeacherRefrigerated Company Driver 02/15/23 Yvonne Knox Secondary History TeacherRefrigerated Company Driver 04/09/24 documented as of this encounter
--- OUTSIDE RECORDS SUMMARY | 2024-09-23 07:04 | XMS_ITS | Encounter Summary ---
Author Organization [employer] Address [address] [facility] 7t [place] [address] Care Team Providers Care Rock Mason Apprentice Name Role Phone Juan Miguel Tinajero MD Primary Care Provider +1 [phone] Juan Cordova PharmD Unavailable Unavail able Reason for Visit * Reason Comments Med Refill Encounter Details Date Type Department Care Team ([facility] Contact Info) Description 10/31/2023 Refill [facility] MED & PEDS [address] [place], [place] [phone] Juan Miguel Tinajero MD 505 [place] [address] Sore throat; Bacterial conjunctivitis; Chronic pain syndrome [...] Description 11/11/2024 9:00 AM EDT Clinical Support [facility] MED [facility] PEDS [address] [place] [address] Elsa Barnett, JENS 505 [place] [address] 11/19/2024 10:00 AM EDT Office Visit [facility] [address] [place] [address] LibanOneida, OD [address] [place] [address] documented as of this encounter Goals Goal [...] documented as of this encounter Care Teams Rock Mason Apprentice Relationship Specialty Start Date End Date Juan Miguel Tinajero MD 505 [facility] [place] [address] PCP - General Internal Medicine 05/28/18 Juan Cordova PharmD 505 [facility] [place] [address] Pharmacist Internal Medicine 07/14/22 Yvonne Knox Semiconductors Wafer BreakerRock Contractor 02/15/23 Yvonne Knox [employer]icon[employer]ors Wafer BreakerRock Contractor 04/09/24 documented as of this encounter
--- OUTSIDE RECORDS SUMMARY | 2024-09-23 07:04 | XMS_ITS | Clinical Summary ---
Author Organization [facility] Address [address] [facility] [address] [place] [address] Phone Care Team Providers Care Md Senior Research Scientist Name Role Phone Juan Miguel Tinajero MD Primary Care Provider +1- [phone] Allergies No known active allergies Medications Acetaminophen Extra Strength 500 MG tablet if needed 02/09/20 Active Alcohol Swabs (SM Alcohol Prep) 70 % pads USE ONCE DAILY 02/12/20 21 Active amLODIPine (NORVASC) 10 MG tablet Take 10 mg by mouth every morning 02/05/20 21 Active Aspirin Low Dose 81 MG EC tablet Take 81 mg by mouth every morning 02/12/20 21 Active atorvastatin (LIPITOR) 80 MG tablet 80 mg every night 02/05/20 21 Active cilostazol (PLETAL) 100 MG tablet TAKE ONE TABLET BY MOUTH TWICE DAILY IN THE MORNING AND AT BEDTIME 30 MINUTES BEFORE OR TWO HOURS AFTER BREAKFAST AND SUPPER. 02/05/20 21 Active glucose 4 g chewable tablet TAKE TWO TABLETS BY MOUTH DIRECTED. 02/12/20 21 Active gabapentin (NEURONTIN) 300 MG capsule TAKE ONE CAPSULE EVERY MORNING and TAKE TWO CAPSULES EVERY DAY AT BEDTIME 02/05/20 21 Active Lantus SoloStar 100 UNIT/ML injection 40 Units 1 (one) time each day 35 units 02/12/20 21 Active pantoprazole (PROTONIX) 20 MG EC tablet Take 20 mg by mouth every morning 02/05/20 21 Active risperiDONE (RisperDAL) 3 MG tablet Take 3 mg by mouth at bed time 01/27/20 21 Active traMADol (ULTRAM) 50 MG tablet TAKE ONE TABLET BY MOUTH THREE TIMES DAILY NEEDED. 02/09/20 21 Active DULCOLAX 5 MG EC tablet TAKE TWO TABLETS EVERY NIGHT AT BEDTIME 07/17/19 24 Active docusate sodium (COLACE) 100 MG capsule Take 100 mg by mouth in the morning. Active famotidine (PEPCID) 20 MG tablet Take 20 mg by mouth 1 (one) time each day Active Tirzepatide (Mounjaro) 5 MG/0.5ML solution pen-injector Inject under the skin Once a week Active cholecalcifero l (VITAMIN D-3) 50 MCG (1999 UT) capsule TAKE ONE CAPSULE EVERY MORNING 90 capsule 3 01/10/20 24 Active carvedilol (COREG) 12.5 MG tablet Take 1 tablet (12.5 mg total) by mouth in the morning and 1 tablet (12.5 mg total) in the evening. Take with meals. 180 tablet 3 09/09/19 25 Active carvedilol (COREG) 12.5 MG tablet Take 1 tablet (12.5 mg total) by mouth in the morning and 1 tablet (12.5 mg total) in the evening. Take with meals. 180 tablet 3 10/02/19 24 025 Discontinued carvedilol (COREG) 12.5 MG tablet TAKE ONE TABLET TWICE DAILY IN THE MORNING AND AT BEDTIME WITH FOOD 180 tablet 3 09/08/19 25 025 Discontinued(Re order (does not appear on AVS)) Active Problems Problem Noted Date Diagnosed Date [...] chronic back and shoulder pain. Gets regular BUILDINGS AND GROUNDS COORDINATOR follow up and has Narcan prescribed. F/U [...] 05/30/2018 Type 2 diabetes mellitus 04/23/2017 03/28/202305/2023 Encounters Date Type Department Care Team Description 09/08/2024 Refill [facility] [address] [facility] [address] [place] [address] Radha Black MA 09/08/2024 Refill [facility] [address] [facility] [address] [place] [address] Radha Black MA 09/05/2024 Refill [facility] [address] [facility] [address] [place] [address] Aj Grajeda MD from Last 3 Months Immunizations Immunization Administration Dates Next Due Hepatitis B 08/21/2022,07/24/2022 [...] Office Visit [facility] [address] [phone] Aj Grajeda MD [address] [address] 09/29/2024 Orders Only [facility] [address] [phone] Aj Grajeda MD [address] [address] Stage 3a chronic kidney disease (HCC); Other acute kidney failure (HCC); Nephrolithiasis; Peripheral arterial occlusive disease (HCC); Hypertensive disorder Health Maintenance Due Date Last Done Comments Colorectal Cancer Screening: Annual FOBT 2009 Colorectal Cancer Screening: Colonoscopy 2009 Colorectal Cancer Screening: Sigmoidoscopy 2009 Diabetes: Ophthalmology Exam 03/28/2023 Diabetes: Pedal Pulse Checked 03/28/2023 Diabetes: Sensory Foot Exam 03/28/2023 Diabetes: Visual Foot Exam 03/28/2023 Diabetes: Hemoglobin A1C 08/12/2024 024, 11/01/2023, 03/21/2023, Additional history exists Pneumococcal Vaccine: 50+ Years Completed 07/31/2023, 12/10/2015 Pneumococcal Vaccine: Peds (0 to 5 Years) and At-Risk Patients (6 to 49 Years) Discontinued 07/31/2023, 12/10/2015 Influenza Vaccine Completed 05/14/2024, , 02/22/2022, Additional history exists Hepatitis B Vaccine Aged Out 05/23/2024, 08/21/2022, 07/24/2022 No longer eligible based on patient's age to complete this topic Procedures Procedure Name Priority Date/Time Associated Diagnosis Comments PTH, INTACT Routine 09/22/2024 8:17 AM EDT MAGNESIUM Routine 09/22/2024 8:17 AM EDT PHOSPHATE ( PHOSPHORUS) Routine 09/22/2024 8:17 AM EDT URIC ACID Routine 09/22/2024 8:17 AM EDT VITAMIN D 25 HYDROXY Routine 09/22/2024 8:17 AM EDT PROTEIN / CREATININE RATIO, URINE Routine 09/22/2024 8:17 AM EDT COMPREHENSIVE METABOLIC PANEL Routine 09/22/2024 8:17 AM EDT CBC AND DIFFERENTIAL Routine 09/22/2024 8:17 AM EDT HEMOGLOBIN A1C Routine 03/21/2023 8:20 AM EDT Acute injury of kidney (HCC) Stage 3a chronic kidney disease (HCC) Cyst of kidney Nephrolithiasis Multi vessel coronary artery disease from Last 3 Months or Most Recently Relevant to Health Maintenance Results * Vitamin D 25 Hydroxy (09/22/2024 8:17 AM EDT) Vitamin D, 25-OH, Total 34.1 30.0 - 100.0 ng/mL [facility] Comment: Vitamin D deficiency has been defined by the [place] of Medicine and an Endocrine Society practice guideline as a level of serum 25-OH vitamin D less than 20 ng/mL (1,2). The Endocrine Society went on to further define vitamin D insufficiency as a level between 21 and 29 ng/mL (2). 1. IOM ([place] of Medicine). 2010. Dietary reference ?? intakes for calcium and D. [place]: The ?? National [employer]avor[employer]il Press. 2. Tessy MF, Cruzito BURCH, Prasad DURBIN, et al. ?? Evaluation, treatment, and prevention of vitamin D ?? deficiency: an Endocrine Society clinical practice ?? guideline. JCEM. 2010; 96(7):1911-30. 09/22/2024 8:17 AM EDT 09/22/2024 us Aj Grajeda MD LAB BLOOD ORDERABLES [facility] [address] [place] [address] * CBC and Differential (09/22/2024 8:17 AM EDT) WBC 6.6 3.4 - 10.8 x10E3/uL [facility] RBC 4.56 4.14 - 5.80 x10E6/uL [facility] Hemoglobin 13.0 13.0 - 17.7 g/dL [facility] Hematocrit 39.7 37.5 - 51.0 % [facility] MCV 87 79 - 97 fL [facility] MCH 28.5 26.6 - 33.0 pg [facility] MCHC 32.7 31.5 - 35.7 g/dL [facility] RDW 14.1 11.6 - 15.4 % [facility] Platelets 210 150 - 450 x10E3/uL [facility] Neutrophils Relative 61 Not Estab. % [facility] Lymphocytes Relative 26 Not Estab. % [facility] Monocytes 7 Not Estab. % [facility] Eosinophils Relative 5 Not Estab. % [facility] Basophils Relative 1 Not Estab. % [facility] Neutrophils Absolute 4.1 1.4 - 7.0 x10E3/uL [facility] Lymphocytes Absolute 1.7 0.7 - 3.1 x10E3/uL [facility] Monocytes Absolute 0.4 0.1 - 0.9 x10E3/uL [facility] Eosinophils Absolute 0.3 0.0 - 0.4 x10E3/uL [facility] Basophils Absolute 0.0 0.0 - 0.2 x10E3/uL [facility] Immature Granulocytes 0 Not Estab. % [facility] Immature Grans (Absolute) 0.0 0.0 - 0.1 x10E3/uL [facility] 09/22/2024 8:17 AM EDT 09/22/2024 us Aj Grajeda MD LAB BLOOD ORDERABLES Final Re sult [facility] [address] [place] [address] * PTH, Intact (09/22/2024 8:17 AM EDT) PTH 36 15 - 65 pg/mL [facility] 09/22/2024 8:17 AM EDT 09/22/2024 us Aj Grajeda MD LAB BLOOD ORDERABLES Final [facility] [address] [place] [address] * (ABNORMAL) Comprehensive Metabolic Panel (09/22/2024 8:17 AM EDT) Glucose 137(H) 70 - 99 mg/dL [facility] BUN 10 8 - 27 mg/dL [facility] Creatinine 1.09 0.76 - 1.27 mg/dL [facility] eGFR CKD-EPI CR 2020 76 >59 mL/min/1.7 3 [facility] BUN/Creatinine Ratio 9(L) 10 - 24 [facility] Sodium 143 134 - 144 mmol/L [facility] Potassium 4.4 3.5 - 5.2 mmol/L [facility] Chloride 105 96 - 106 mmol/L [facility] Bicarbonate (CO2) 20 20 - 29 mmol/L [facility] Calcium 9.4 8.6 - 10.2 mg/dL [facility] Total Protein 6.8 6.0 - 8.5 g/dL [facility] Albumin 4.2 3.9 - 4.9 g/dL [facility] Globulin 2.6 1.5 - 4.5 g/dL [facility] Total Bilirubin 0.4 0.0 - 1.2 mg/dL [facility] Alkaline Phosphatase 106 44 - 121 IU/L [facility] AST (SGOT) 20 0 - 40 IU/L [facility] ALT (SGPT) 15 0 - 44 IU/L [facility] 09/22/2024 8:17 AM EDT 09/22/2024 us Aj Grajeda MD LAB BLOOD ORDERABLES Final Re sult [facility] [address] [place] [address] * (ABNORMAL) Hemoglobin A1c (03/21/2023 8:20 AM EDT) Hemoglobin A1C 6.6(H) (4.0-5.6) % [facility] Comment: MONITORING: In known diabetic patients, hemoglobin A1c targets should be discussed with health care provider. DIAGNOSTIC USE: ??The [place] Diabetes Association (ADA) and the World Health [...] Supplement 1 Testing performed or reported by [facility], a Service of [facility], [address] [place] [address] Zachary Sanders MD, Waxer Tender [facility]# [id number] Blood (Blood, Venous) 03/21/2023 8:20 AM EDT 03/21/2023 8:25 AM EDT Aj Grajeda MD LAB BLOOD ORDERABLES Final Re sult [facility] from Last 3 Months or Most Recently Relevant to Health Maintenance Insurance Medicaid [place] Medicaid [place] Care Teams Md Senior Research Scientist Relationship Specialty Start Date End Date Juan Miguel Tinajero MD [address] [place] [phone] PCP - General Internal Medicine 02/11/21
--- OUTSIDE RECORDS SUMMARY | 2024-09-23 07:04 | XMS_ITS | Encounter Summary ---
Author Organization [employer] Address [address] [facility] 7t [place] [address] Care Team Providers Care Recreation Worker Name Role Phone Juan Miguel Tinajero MD Primary Care Provider +1 [phone] Juan Cordova PharmD Unavailable Unavail able Reason for Visit * Reason Comments Med Refill Encounter Details Date Type Department Care Team ([facility] st Contact Info) Description 10/31/2023 Refill [facility] MED [facility] PEDS [address] [place], [place] [phone] Juan Miguel Tinajero MD 505 [place] [address] Chronic right shoulder pain; Pain in right [...] Description 11/11/2024 9:00 AM EDT Clinical Support [facility] MED [facility] PEDS [address] [place] [address] Elsa Barnett, RN 505 [place] [address] 11/19/2024 10:00 AM EDT Office Visit [facility] [address] [place] [address] LibanOneida, OD [address] [place] [address] documented as of this encounter Goals Goal [...] as of this encounter Care Teams Recreation Worker Relationship Specialty Start Date End Date Juan Miguel Tinajero MD 505 [place] [address] PCP - General Internal Medicine 05/28/18 Juan Cordova PharmD [address] [facility] [place] [address] Pharmacist Internal Medicine 07/14/22 Yvonne Knox Head PorterRollway Worker 02/15/23 Yvonne Knox Head PorterRollway Worker 04/09/24 documented as of this encounter
--- OUTSIDE RECORDS SUMMARY | 2024-09-23 07:04 | XMS_ITS | Clinical Summary ---
Author Organization [facility] ity Address [address] [place] [address] Care Team Providers Care Secretary Board Of Commissioners Name Role Phone Unavailable Primary Care Provider [...] - 2023-2 5 season) 2024 Influenza Vaccine (Season Ended) 2025 RSV Immunization Adult Patie nts (1 - 1-dose 75+ series) 2035 HIB [...] age to complete this topic Meningococcal B Vaccine Aged Out No l onger eligible based on patient's age to complete [...]
--- OUTSIDE RECORDS SUMMARY | 2024-09-23 07:04 | XMS_ITS | Encounter Summary ---
Author Organization [employer] Address [address] [facility] 7t [place] [address] Care Team Providers Care Facility Coordinator Name Role Phone Juan Miguel Tinajero MD Primary Care Provider +1 [phone] Juan Cordova PharmD Unavailable Unavail able Reason for Visit * Reason Onset Date Comments ER Follow-up 07/20/2023 Encounter Details Date Type Department Care Team ([facility] st Contact Info) Description 07/20/2023 Telephone [facility] [address] [place] [address] Juan Miguel Tinajero MD [address] [place] [address] ER Follow-up Social History Tobacco Use Types [...] AM EST TC placed to patient via [employer] regarding message below. Patient reports that 8 days ago, he had a fall and hit his L side and was evaluated at [facility]. They said he didn't break anything, but he is continuing to have L-sided pain in the area of his ribs. He denies bruising in the area,and he says that aspirin, tramadol, and another anti-inflammatory that was prescribed are not helping. Denies other symptoms. Advised to go to [facility] at [facility] today for evaluation and patient [...] ED visit on : Date: 07/12/2023 Hospital: [facility] Seen for: Fall Patient advised will forward to team nurse for follow up. Symptom: Chest Injury Outcome: Talk to a nurse or provider within 15 minutes Reason: Left Rib The caller accepted this outcome Yvonne Roseline [phone] * Telephone Encounter - Tsering Pastrana - 07/20/2023 11:40 AM EST Patient calling to report ED visit on : Date: 07/12/2023 Hospital: [facility] Seen for: Fall Patient advised will forward to team nurse for follow up. Symptom: Chest Injury Outcome: Talk to a nurse or provider within 15 minutes Reason: Left Rib The caller accepted this outcome Yvonne [facility] [phone] documented in this encounter Plan of Treatment Upcoming Encounters Date Type Department Care Team (Late st Contact Info) Description 11/11/2024 9:00 AM EDT Clinical Support [facility] MED [facility] PEDS [address] [place], [place] [phone] Elsa Barnett RN 505 [place], [place] [phone] 11/19/2024 10:00 AM EDT Office Visit [facility] OPT[facility] [address] [place] [address] LibanOneida chavez, OD [address] [place] [address] documented as of this encounter Goals Goal [...] documented as of this encounter Care Teams Facility Coordinator Relationship Specialty Start Date End Date Juan Miguel Tinajero MD [address] [place] [address] PCP - General Internal Medicine 05/28/18 JefelogKaleb mtzis, PharmD [address] [place] [address] [place] [address] Pharmacist Internal Medicine 07/14/22 Yvonne Knox Clamp RemoverAcid Recovery Operator 02/15/23 Yvonne Knox Clamp RemoverAcid Recovery Operator 04/09/24 documented as of this encounter
--- OUTSIDE RECORDS SUMMARY | 2024-09-23 07:04 | XMS_ITS | Continuity of Care Document ---
Author Organization [facility] Address [address] [place] [address] Phone Care Team Providers Care Interlocking Tower Operator Name Role Phone Unavailable Unavailable Unavailable Allergies, [...] kit take 1 not specified by [facility]non-drug; combo) route 4 times every day 1 [...] Location Reason(s) For Visit Diagnoses Date Provider [address], [id number] , [place] tel:+ [phone] [facility] No Information No Information [address], [id number] , [place] tel:[phone] [facility] No Information 9 Shawn Gandhi. [facility]2 Ady Francisco, [id number] [place], [address], [place]. tel:[phone] [facility], [address] [place] [address], [id number] , tel: [phone] [facility] Follow Up of flank pain (chief complaint) Body mass index (BMI) 38.0-38.9, adultType 2 diabetes mellitus without complication, with long-term current use of insulinAbdominal bloatingRight kidney mass Jan- No Information [address], [id number] , tel: [phone] [facility] diabetes (chief complaint). (chief complaint) Right kidney massType 2 diabetes mellitus with hyperglycemiaBody mass index (BMI) 37.0-37.9, adult Jan- No Information [address], [id number] , tel: [phone] [facility] No Information No Information [facility], [address] [place] [address], [id number] , [place] tel: [phone] [facility] Follow Up of diabetes (chief complaint)Gas (chief complaint) Body mass index (BMI) 38.0-38.9, adultType 2 diabetes mellitus without complication, with long-term current use of insulinDiarrhea, unspecified typeDDD (degenerative disc disease), cervicalEssential hypertensionHyperlipid emia, unspecified hyperlipidemia typeHistory of AR (myocardial infarction) No Information [address], [id number] , [place] tel: [phone] [facility] flank pain (chief complaint)Skin tag(s) (chief complaint)Vas surgery follow up (ranjana) (chief complaint). (chief complaint) Body mass index (BMI) 36.0-36.9, adultType 2 diabetes mellitus without complication, with long-term current use of insulinClosed fracture of multiple ribs of right side with routine healing, subsequent encounterSkin tagArthrosis of left shoulderDDD (degenerative disc disease), cervicalOther diabetic neurological complication associated with type 2 diabetes mellitusInfected surgical wound 9 No Information One [address], [id number] , [place] tel:+ [phone] [facility] No Information 9 No Information One [address], [id number] , [place] tel:+ [phone] [facility] diabetes (chief complaint)hype rtension (chief complaint)foll ow up [facility] (chief complaint)Flan k pain (chief complaint) Body mass index (BMI) 37.0-37.9, adultClosed fracture of multiple ribs of right side with routine healing, subsequent encounterEssential hypertensionHyperlipid emia, unspecified hyperlipidemia typeType 2 diabetes mellitus with hyperglycemiaHistory of AR (myocardial infarction)Other diabetic neurological complication associated with type 2 diabetes mellitus 9 No Information One [address], [id number] , [place] tel:+ [phone] [facility] Follow Up of Shoulder pain (chief complaint) Body mass index (BMI) 37.0-37.9, adultLeft anterior shoulder pain 9 No Information One [address], [id number] , [place] tel:+ [phone] [facility] shoulder pain (chief complaint) Body mass index (BMI) 37.0-37.9, adultLeft anterior shoulder pain 9 No Information One [address], [id number] , [place] tel:+ [phone] [facility] immunizations (chief complaint)Ches t pain (chief complaint)diab etes (chief complaint) Body mass index (BMI) 38.0-38.9, adultType 2 diabetes mellitus with hyperglycemiaEssential hypertension 9 No Information One [address], [id number] , [place] tel:+ [phone] [facility] shoulder pain (chief complaint)diab etes (chief complaint) Body mass index (BMI) 38.0-38.9, adultType 2 diabetes mellitus with hyperglycemiaBilateral claudication of lower limbDeltoid tendonitis of left shoulder 9 No Information One [facility], [address] [place] [address], [id number] , tel: [phone] [facility] elbow pain (chief complaint)foll ow up on lab test(s) (chief complaint)diab etes (chief complaint) Body mass index (BMI) 38.0-38.9, adultArthritis of elbow, leftType 2 diabetes mellitus with hyperglycemia 8 No Information One [address], [id number] , tel:+ [phone] [facility] No Information 8 No Information One [facility], [address] [place] [address], [id number] , [place] tel:+ [phone] [facility] establish pcp (chief complaint)diab etes (chief complaint)hype rtension (chief complaint) Body mass index (BMI) 37.0-37.9, adultAcute stress reactionEssential hypertensionType 2 diabetes mellitus without complication, with long-term current use of insulinFlu vaccine needHyperlipidemia, unspecified hyperlipidemia typeHistory of AR (myocardial infarction)Other diabetic neurological complication associated with [...] type Covered green party ID Authoriza tion(s) [facility] [id number] [facility] [id number] [facility] [id number] [facility] [id number] [facility] [id number] [facility] [id number] Social History Type Description Quantity Date Captured [...] Lab Order COMPREHE NSIVE METABOLIC PANEL W/EGFR ([id number]), Ordered on: Ordered History Of Present Illness [...] having pain, out of medication. Was at [facility] in August for fractured ribs on the [...] 06 with the vascular surgeon. . The binder coverstitch phone was used through this entire visit. Patient speaks only [place]. follow up [facility] Was at [facility] for rib pain. Flank pain Pain [...] states unable to sleep d/t pain, at [facility] in August for fx of right rib. hypertension Comorbid conditi ons include diabetes mellitus and post-AR. Risk factors include family history HTN, gout [...] excludes tobacco use. Patient was seen at [facility] last for chest pain. Patient [...] Comorbid conditi ons include diabetes mellitus and post-AR. Risk factors include family history HTN, gout or CAD and male gender. Pertinent negatives include chest pain, dyspnea, fatigue, headache, hematuria, irregular heartbeat/palpitations, nausea and vomiting. Additional information: establishing care- needs to also establish with cardiology for annual check ups establish pcp Patient presents today to establish PCP. PMH: diabetes, hypertension, hyperlipidemia, gerd, neuropathy, AR 2014- cardiac bypass surgey, 5 stents placed, Hx stroke 2015 last saw his heart doctor 4 months ago, was going ever 6 months in [place], recently moved here - needs cardiology referral colonoscopy done 6 [place] ago out of state- normal per patientdoes not smokec/o numbness, tingling left arm- denies CP or neck painstates the pain is mostyle in his upper arm and has gotten worse over the last few weeks, ibuprofen does not help. States it feels like pins and needles Instructions Date Instruction Additional Infor vadimion Giving encouragement to exercise Related to Body [...]
--- OUTSIDE RECORDS SUMMARY | 2024-09-23 07:04 | XMS_ITS | Encounter Summary ---
Author Organization [employer] Address [address] [facility] 7t [place] [address] Care Team Providers Care Project Administrator Name Role Phone Juan Miguel Tinajero MD Primary Care Provider [phone]- [phone] Juan Cordova PharmD Unavailable Unavail able Reason for Visit * Reason Comments Med Refill Encounter Details Date Type Department Care Team (Late Contact Info) Description 12/18/2022 Refill [facility] CHC MED & PEDS [address] [place], [place] [phone] Juan Miguel Tinajero MD [address] [place] [address] Back pain, unspecified back location, unspecified back [...] Department Care Team (Late Contact Info) Description 11/11/2024 9:00 AM EDT Clinical Support [facility] CHC MED & PEDS [address] [place] [address] Elsa Barnett, JENS [address] [place] [address] 11/19/2024 10:00 AM EDT Office Visit [facility] OPTOMETRY [address] [place] [address] LibanOneida chavez, OD [address] [place] [address] documented as of this encounter Goals Goal [...] documented as of this encounter Care Teams Project Administrator Relationship Specialty Start Date End Date Juan Miguel Tinajero MD [address] [place] [address] PCP - General Internal Medicine 05/28/18 Juan Cordova, PharmD [address] [place] [address] Pharmacist Internal Medicine 07/14/22 Yvonne Knox Family Readiness Support AssistantSap Portal Developer 02/15/23 Yvonne Knox Family Readiness Support AssistantSap Portal Developer 04/09/24 documented as of this encounter
--- OUTSIDE RECORDS SUMMARY | 2024-09-23 07:04 | XMS_ITS | Encounter Summary ---
Author Organization [employer] Address [address] [facility] 7t [place] [address] Care Team Providers Care Ehs Manager Name Role Phone Juan Miguel Tinajero MD Primary Care Provider [phone]- [phone] Juan Cordova PharmD Unavailable Unavail able Encounter Details Date Type Department Care Team ([facility] st Contact Info) Description 09/26/2023 Orders Only [facility] CHC MED & PEDS [address] [place], [place] [phone] Juan Miguel Tinajero MD [address] [place] [address] Social History Tobacco Use Types Packs/Day Years [...] Description 11/11/2024 9:00 AM EDT Clinical Support [facility] CHC MED & PEDS [address] [place] [address] Elsa Barnett, JENS [address] [place] [address] 11/19/2024 10:00 AM EDT Office Visit [facility] OPTOMETRY [address] [place] [address] Oneida Louie, OD [address] [place] [address] documented as of this encounter Goals Goal [...] documented as of this encounter Care Teams Ehs Manager Relationship Specialty Start Date End Date Juan Miguel Tinajero MD [address] [place] [address] PCP - General Internal Medicine 05/28/18 Juan Cordova, PharmD [address] [place] [address] D[place] Garcia [address] Pharmacist Internal Medicine 07/14/22 Yvonne Knox Pulp Screen OperatorOccupational Health And Safety Manager 02/15/23 Yvonne Knox Pulp Screen OperatorOccupational Health And Safety Manager 04/09/24 documented as of this encounter
--- OUTSIDE RECORDS SUMMARY | 2024-09-23 07:04 | XMS_ITS | Encounter Summary ---
Author Organization [employer] Address [address] [facility] [address] [place] [address] Care Team Providers Care Waiter/Waitress Second Class Name Role Phone Juan Miguel Tinajero MD Primary Care Provider [phone]- [phone] Juan Cordova PharmD Unavailable Unavail able Encounter Details Date Type Department Care Team (Late Contact Info) Description 04/24/2022 Abstract [facility] ADULT DENTAL [address] [place] [address] Dental, Provider, DDS Social History Tobacco Use [...] Description 11/11/2024 9:00 AM EDT Clinical Support [facility] ED MED & PEDS [address] [place] [address] Elsa Barnett, RN [address] [place] [address] 11/19/2024 10:00 AM EDT Office Visit [facility] OPTOMETRY [address] [place] [address] Oneida Louie, OD [address] [place] [address] documented as of this encounter Procedures Procedure [...] on filedocumented in this encounter Care Teams Waiter/Waitress Second Class Relationship Specialty Start Date End Date Juan Miguel Tinajero MD [address] [place] [address] PCP - General Internal Medicine 05/28/18 Juan Cordova PharmD [address] [place] [address] Pharmacist Internal Medicine 07/14/22 Yvonne Knox Proof Load MechanicParachute Rigger 02/15/23 Yvonne Knox Proof Load MechanicParachute Rigger 04/09/24 documented as of this encounter
--- OUTSIDE RECORDS SUMMARY | 2024-09-23 07:04 | XMS_ITS | Encounter Summary ---
Author Organization [employer] Address [address] [facility] 7t [place] [address] Care Team Providers Care Patent Attorney Name Role Phone Juan Miguel Tinajero MD Primary Care Provider [phone]- [phone] Juan Cordova PharmD Unavailable Unavail able Encounter Details Date Type Department Care Team (Late st Contact Info) Description 12/03/2023 Orders Only [facility] CHC MED & PEDS [address] [place], [place] [phone] Juan Miguel Tinajero MD [address] [place] [address] Type 2 diabetes mellitus with both eyes affected by mild nonproliferative retinopathy without macular edema, with long-term current use of insulin ([facility]) (Primary Dx) Social History Tobacco Use Types [...] 9:00 AM EDT Clinical Support [facility] CHC MED & PEDS [address] [place] [address] Elsa Barnett, RN [address] [place] [address] 11/19/2024 10:00 AM EDT Office Visit [facility] OPTOMETRY [address] [place] [address] Liban, Oneida, OD [address] [place] [address] documented as of this encounter Goals Goal [...] edema, with long-term current use of insulin ([facility])- Primary documented in this encounter Additional Health Concerns Assessment Noted Time PHQ-9 Depression Total Score: 0 10/30/19 24 10:10 AM EDT documented as of this encounter Care Teams Patent Attorney Relationship Specialty Start Date End Date Juan Miguel Tinajero MD [address] [facility] [place] [address] PCP - General Internal Medicine 05/28/18 Juan Cordova, Benjamin [address] [facility] [place] [address] Pharmacist Internal Medicine 07/14/22 Yvonne Knox Shrimp Boat CaptainGlove Sewer 02/15/23 Yvonne Knox Shrimp Boat CaptainGlove Sewer 04/09/24 documented as of this encounter
--- OUTSIDE RECORDS SUMMARY | 2024-09-23 07:04 | XMS_ITS | Encounter Summary ---
Author Organization [employer] Address [address] [facility] 7[address] [place] [address] Care Team Providers Care Internal Revenue Agent Name Role Phone Juan Miguel Tinajero MD Primary Care Provider [phone] [phone] Juan Cordova PharmD Unavailable Unavail able Reason for Visit * Reason Comments Med Refill Encounter Details Date Type Department Care Team ([facility] st Contact Info) Description 09/20/2024 Refill [facility] CHC MED & PEDS [address] [place], [place] [phone] Juan Miguel Tinajero MD [address] [place] [address] Chronic right shoulder pain; Pain in right [...] Description 11/11/2024 9:00 AM EDT Clinical Support [facility] CHC MED & PEDS [address] [place] [address] Elsa Barnett, RN [address] [place] [address] 11/19/2024 10:00 AM EDT Office Visit [facility] OPTOMETRY [address] [place] [address] Oneida Louie, OD [address] [place] [address] documented as of this encounter Goals Goal [...] documented as of this encounter Care Teams Internal Revenue Agent Relationship Specialty Start Date End Date Juan Miguel Tinajero MD [address] [place] [address] PCP - General Internal Medicine 05/28/18 Juan Cordova PharmD [address] [place] [address] Pharmacist Internal Medicine 07/14/22 Yvonne Knox Director Of Materials ManagementTerrazzo Worker 02/15/23 Yvonne Knox Director Of Materials ManagementTerrazzo Worker 04/09/24 documented as of this encounter
--- OUTSIDE RECORDS SUMMARY | 2024-09-23 07:04 | XMS_ITS | Clinical Summary ---
Author Organization [employer] Address [address] [facility] 7t [place] [address] Care Team Providers Care Shipyard Supervisor Name Role Phone Juan Miguel Tinajero MD Primary Care Provider +1 [phone] Juan Cordova PharmD Unavailable Unavail able Allergies [...] / DIRECTED 023 Active Continuous Blood Gluc Pediatric Dietician (FreeStyle Michael 2 Lynd) deviceIndications: Type 2 diabetes mellitus with other circulatory complication, with long-term current use of insulin ([facility]) Use to check blood sugar as directed 1 each 023 Active glucose 4 g chewable tabletIndications: Type 2 diabetes mellitus with other circulatory complication, with long-term current use of insulin ([facility]) Chew 4 tablets (16 g) [...] complication, with long-term current use of insulin ([facility]) USE TO TEST BLOOD SUGAR CHANGE AFTER TWO WEEKS, THREE TIMES DAILY 2 each 023 Active carvedilol (Coreg) 6.25 MG tabletIndications: Benign essential hypertension TAKE ONE TABLET TWICE DAILY IN THE MORNING AND AT BEDTIME WITH FOOD 180 tablet 3 023 Active clopidogrel (Plavix) 75 MG tabletIndications: Peripheral arterial occlusive disease ([facility]) TAKE ONE TABLET EVERY MORNING 90 tablet 3 023 Active isosorbide mononitrate ER (Imdur) 60 MG 24 hr tabletIndications: Benign essential hypertension TAKE ONE TABLET EVERY MORNING 90 tablet 1 024 Active fluticasone (Flovent HFA) 110 MCG/ACT inhalerIndications :Moderate persistent asthma without complication INHALE TWO PUFFS TWICE DAILY, RINSE MOUTH AFTER USE 12 g 11 024 Active Easy Touch Lancets 33G/Twist miscIndications:Ty pe 2 diabetes mellitus with other circulatory complication, with long-term current use of insulin ([facility]) TEST BLOOD SUGAR FIVE TIMES DAILY 200 each 11 024 Active risperiDONE (RisperDAL) 3 MG tabletIndications: MDD (major depressive disorder), recurrent, severe, with psychosis ([facility]) Take 1 tablet (3 mg) by mouth at bedtime. 90 tablet 3 024 Active Alcohol Swabs (Alcohol Prep) 70 % padsIndications:Ty pe 2 diabetes mellitus with diabetic peripheral angiopathy without gangrene, with long-term current use of insulin ([facility]) USE FIVE DAILY 100 each 11 024 Active Diclofenac Sodium 1 % gelIndications:Chr onic right shoulder pain APPLY 2 GRAM'S TO AFFECTED AREA(s) FOUR TIMES DAILY NEEDED 100 g 024 Active insulin pen needle (TechLite Plus Pen [place]) 32G x 4 mm misc USE FIVE DAILY 100 each 024 Active insulin glargine (Lantus SoloStar) 100 UNIT/ML penIndications:Typ e 2 diabetes mellitus with other circulatory complication, with long-term current use of insulin ([facility]) INJECT 35 UNITS SUBCUTANEOUSLY EVERY DAY 15 mL 3 024 Active FREESTYLE LITE test stripIndications:T ype 2 diabetes mellitus with diabetic peripheral angiopathy without gangrene, with long-term current use of insulin ([facility]) TEST BLOOD SUGAR FIVE TIMES DAILY 150 strip 5 024 Active FT Earwax Removal 6.5 % otic [...] HOURS DIRECTED. 30 patch 3 025 Active gabapentin (Neurontin) 300 MG capsuleIndications :Complains of low back pain TAKE ONE CAPSULE EVERY MORNING and TAKE TWO CAPSULES EVERY DAY AT BEDTIME 90 capsule 5 025 Active amLODIPine (Norvasc) 10 MG tablet [...] BREAKFAST AND SUPPER 60 tablet 1 025 Active Acetaminophen Extra Strength 500 MG tabletIndications: Chronic pain syndrome TAKE TWO TABLETS EVERY 6 HOURS NEEDED FOR PAIN 40 tablet 1 025 Active Mounjaro 5 MG/0.5ML solution auto-injectorIndic ations:Type 2 diabetes mellitus with both eyes affected by mild nonproliferative retinopathy without macular edema, with long-term current use of insulin ([facility]) INJECT ONE PEN (=5MG) SUBCUTANEOUSLY ONCE A WEEK DIRECTED 2 mL 2 025 Active acetaminophen (Tylenol 8 Hour) 650 MG ER tabletIndications: Chronic pain syndrome,Sore throat,Bacterial conjunctivitis TAKE TWO TABLETS EVERY 8 HOURS NEEDED FOR PAIN, DO NOT EXCEED SIX TABLETS DAILY 40 tablet 1 025 Active triamcinolone (Kenalog) 0.1 % creamIndications:D yshydrosis APPLY TO THE AFFECTED AREA(S) TWICE DAILY IN THE MORNING AND AT BEDTIME 30 g 025 Active traMADol (Ultram) 50 MG tabletIndications: Chronic right shoulder pain,Pain in right shoulder,Back pain, unspecified back location, unspecified back pain laterality, unspecified chronicity TAKE ONE TABLET EVERY 8 HOURS 84 tablet 025 Active Mounjaro 5 MG/0.5ML solution auto-injectorIndic ations:Type 2 diabetes mellitus with both eyes affected by mild nonproliferative retinopathy without macular edema, with long-term current use of insulin ([facility]) INJECT FIVE MG SUBCUTANEOUSLY ONCE A WEEK 2 mL 2 025 08/28 Discontinued traMADol (Ultram) 50 MG tabletIndications: Chronic right shoulder pain,Pain in right shoulder,Back pain, unspecified back location, unspecified back pain laterality, unspecified chronicity TAKE ONE TABLET EVERY 8 HOURS 84 tablet 025 08/28 Discontinued triamcinolone (Kenalog) 0.1 % creamIndications:D yshydrosis APPLY TOPICALLY TO AFFECTED AREA(s) TWICE DAILY IN THE MORNING AND AT BEDTIME 30 g 1 025 09/17 Discontinued acetaminophen (Tylenol 8 Hour) 650 MG ER tabletIndications: Chronic pain syndrome,Sore throat,Bacterial conjunctivitis TAKE TWO TABLETS EVERY 8 HOURS NEEDED FOR PAIN. DO NOT EXCEED SIX TABLETS DAILY 40 tablet 1 025 09/01 Discontinued traMADol (Ultram) 50 MG tabletIndications: Chronic right shoulder pain,Pain in right shoulder,Back pain, unspecified back location, unspecified back pain laterality, unspecified chronicity TAKE ONE TABLET EVERY 8 HOURS 84 tablet 025 09/22 Discontinued Active Problems Problem Noted Date Diagnosed Date Long-term current use of opiate analgesic 2024 Impacted cerumen of right ear 06/04/2024 Assessment [...] chronic back and shoulder pain. Gets regular FINANCIAL SERVICES EDUCATION CONSULTANT follow up and has Narcan prescribed. Has [...] chronic back and shoulder pain. Gets regular FINANCIAL SERVICES EDUCATION CONSULTANT follow up and has Narcan prescribed. Will [...] chronic back and shoulder pain. Gets regular FINANCIAL SERVICES EDUCATION CONSULTANT follow up and has Narcan prescribed. He [...] chronic back and shoulder pain. Gets regular FINANCIAL SERVICES EDUCATION CONSULTANT follow up and has Narcan prescribed. He [...] chronic back and shoulder pain. Gets regular FINANCIAL SERVICES EDUCATION CONSULTANT follow up and has Narcan prescribed. F/U with me in 3 months. He agrees with the plan. Assessment & Plan (10/02/2022 10:49 AM EDT): Prior history suicide attempts and hospitalizations. Still doing extremely well. Hallucinations controlled. Continue Risperidone 3 mg daily. He also takes Tramadol 50 mg TID prn and Gabapentin 600 mg TID for chronic back and shoulder pain. Gets regular FINANCIAL SERVICES EDUCATION CONSULTANT follow up and has Narcan prescribed. F/U [...] Encounters Date Type Department Care Team Description 09/20/2024 Refill [facility]EDS [address] [place] [address] Juan Miguel Tinajero MD Chronic right shoulder pain; Pain in right shoulder; Back pain, unspecified back location, unspecified back pain laterality, unspecified chronicity 09/16/2024 Refill [facility] MED [facility] PEDS [address] [place] [address] Juan Miguel Tinajero MD Dyshydrosis 09/09/2024 9:00 AM EDT Telemedicine [facility] MED [facility] [address] [place] [address] Elsa Barnett RN Long-term current use of opiate analgesic 09/09/2024 Travel 09/08/2024 Travel 09/07/2024 Refill [facility] [address] [place] [address] Juan Miguel Tinajero MD Dyshydrosis 08/30/2024 Refill [facility] [address] [place] [address] Juan Miguel Tinajero MD Chronic pain syndrome; Sore throat; Bacterial conjunctivitis 08/28/2024 Telephone [facility] [address] [place] [address] Juan Miguel Tinajero MD Med Refill 08/28/2024 Refill [facility] [address] [place] [address] Juan Miguel Tinajero MD Type 2 diabetes mellitus with both eyes affected by mild nonproliferative retinopathy without macular edema, with long-term current use of insulin ([facility]); Chronic right shoulder pain; Pain in right shoulder; Back pain, unspecified back location, unspecified back pain laterality, unspecified chronicity 08/14/2024 Refill [facility] [address] [place] [address] Juan Miguel Tinajero MD Chronic pain syndrome; Dyshydrosis; Sore throat; Bacterial conjunctivitis 08/08/2024 Population Health Risk Score [facility] () Department [address] [place] [id number] Provider, Population Health Generic 08/07/2024 Orders Only [facility] External Provider, [facility] 08/05/2024 Refill [facility] [address] [place] [address] Juan Miguel Tinajero MD Peripheral arterial occlusive disease ([facility]) 07/28/2024 Refill [facility] [address] [place] [address] Juan Miguel Tinajero MD Chronic right shoulder pain; Pain in right shoulder; Back pain, unspecified back location, unspecified back pain laterality, unspecified chronicity 07/08/2024 Refill [facility] [address] [place] [address] Juan Miguel Tinajero MD Complains of low back pain 07/05/2024 Refill [facility] [address] [place] [address] Juan Miguel Tinajero MD Sore throat; Bacterial conjunctivitis; Chronic pain syndrome 06/27/2024 10:20 AM EST Office Visit [facility] [address] [place] [address] Cameron Henning MD Chronic low back pain with sciatica, sciatica laterality unspecified, unspecified back pain laterality (Primary Dx); Radicular pain of right lower extremity 06/27/2024 Telephone [facility] [address] [place] [address] Juan Miguel Tinajero MD Walk-In 06/26/2024 Refill [facility] [address] [place] [address] Juan Miguel Tinajero MD Chronic right shoulder pain; Pain in right shoulder; Back pain, unspecified back location, unspecified back pain laterality, unspecified chronicity from Last 3 Months Immunizations Name Administration [...] Description 11/11/2024 9:00 AM EDT Clinical Support [facility] [address] [place] [address] Elsa Barnett, RN [address] [place] [address] 11/19/2024 10:00 AM EDT Office Visit [facility] OPTOMETRY [address] [place] [address] Liban, Oneida, OD [address] [facility] [place] [address] Health Maintenance Due Date Last Done Comments [...] laterality Radicular pain of right lower extremity LIPID PANEL, STANDARD Routine 05/14/2024 10:41 AM EST Type 2 diabetes mellitus with hyperglycemia, with long-term current use of insulin ([facility]) POCT GLYCATED HEMOGLOBIN, TOTAL Routine 05/14/2024 9:31 AM EST Type 2 diabetes mellitus with hyperglycemia, with long-term current use of insulin ([facility]) COLONOSCOPY Routine 10/05/2022 from Last 3 Months or Most Recently Relevant to Health Maintenance Results * Stress test with myocardial perfusion (08/07/2024 10:29 AM EDT) 08/07/2024 10:2 9 AM EDT Narrative [facility] - 08/12/2024 6:17 PM EDT ? [facility] [place] [facility] ?[address] ?[place] [address] ?Nuclear Medicine Report ? Signed ? Patient: Aulet Brito,Osvaldo ?MR#: M ?? [id number] ? : 1960 ?Acct:[id number] ? Age/Sex: 64 / M ?ADM Date: 08/07/24 ? Loc: HO.CARD ? Attending Dr: Bassam Ogden MD ? Ordering Physician: Bassam Ogden MD ?? Date of Service: 08/07/24 ?? Procedure(s): NM cardiolite stress test ?? Accession Number(s): [id number] ? cc: Juan Miguel Tinajero MD; Bassam [...] signed by Ramesh Tse MD in OV> ?08/12/244 ? DD/ 1029 ? TD/TT: 08/12/24 0830 ? Bacon Skin Lifter: ? Procedure Note Donotjuan joseinterpreter, Image - 08/12/2024 [place] [address] Nuclear Medicine Report Signed Patient: Marilyn Ding#: M [id number] : 1960cct:[id number] Age/Sex: 64 / MADM Date: 08/07/24 Loc: [facility] Attending Dr: Bassam Ogden MD Ordering Physician: Bassam Ogden MD Date of Service: 08/07/24 Procedure(s): NM cardiolite stress test Accession Number(s): [id number] cc: Juan Miguel Tinajero MD; Bassam Ogden [...] 08/12/24 1814 DD/ 1029 TD/TT: 08/12/24 0830 Bacon Skin Lifter: us [facility] External Provider CV STRE SS PROCEDURES Final Result [facility] [address] [place] [phone] * (ABNORMAL) POCT urinalysis dipstick manually resulted [...] Urine 06/27/2024 10:3 8 AM EST Cameron Hennnig MD POINT OF CARE TEST ENTER/EDIT OR DERABLES Final Result * Lipid Panel, Standard (05/14/2024 10:41 AM EST) Triglycerides 71 <150 mg/dL [facility] Comment:Desirable Triglyceri de: less than 150 mg/dLBorderline High Triglyceride 150-199 mg/dLHigh Triglyceride: 200-499 mg/dLVery High Triglyceride: greater than or equal to 5OO mg/dL Cholesterol 122 <200 mg/dL [facility] Comment:Desirable Cholestero l: less than 200 mg/dLBorderline High Cholesterol: 200-239 mg/dLHigh Cholesterol: greater than 239 mg/dL LDL Cholesterol Calculated 64 <100 mg/dL [facility] Comment:Desirable LDL: less than 100 mg/dLNear Optimal/Above Optimal LDL: 110- 129 mg/dLBorderline High LDL: 130-159 mg/dLHigh LDL: 160-189 mg/dLVery High LDL: greater than or equal to 190 mg/dL HDL Cholesterol 44 >40 mg/dL [facility] Comment:Desirable HDL: great er than 40 mg/dL Note: This HDL assay may give artificially low results in patients with liver disease. Blood Venous blood specimen / Unknown 05/14/2024 10:41 AM EST 05/14/2024 2:06 PM EST us Juan Miguel Tinajero MD LAB BLOOD ORDERABLES Final Result [facility] [address] [place] [phone] * (ABNORMAL) POCT A1C (05/14/2024 9:31 AM EST) Hemoglobin A1C 6.4(A) 4.0 - 6.0 % QC Media Lot # Comment:[id number] Lot# Expiration Date Comment:12/26/2025 Blood 05/14/2024 9:31 AM EST Juan Miguel Tinajero MD POINT OF CARE TEST ENTER/ED IT ORDERABLES Final Result * (ABNORMAL) Colonoscopy (10/05/2022) Anatomical Region Laterality Modality Endoscopy Narrative 10/05/2022 Poor prep johnathon right side internal hemorrhoids. Historical Provider ENDOSCOPY PROCEDURE ORDER XANDER Final Result from Last 3 Months or Most Recently Relevant to Health Maintenance Insurance [facility] C3 DENTAL-[facility] MEDICAID STAND ADULT Care Teams Shipyard Supervisor Relationship Specialty Start Date End Date Juan Miguel Tinajero MD [address] [place] [address] PCP - General Internal Medicine 05/28/18 Juan Cordova, PharmD [address] [place] [address] Pharmacist Internal Medicine 07/14/22 Yvonne Knox Resident Athletic TrainerEntry Level Electrician 02/15/23 Yvonne Knox Resident Athletic TrainerEntry Level Electrician 04/09/24
--- OUTSIDE RECORDS SUMMARY | 2024-09-23 07:04 | XMS_ITS | Encounter Summary ---
Author Organization [employer] Address [address] [facility] 7t [place] [address] Care Team Providers Care Briquetter Operator Name Role Phone Juan Miguel Tinajero MD Primary Care Provider [phone] Juan Cordova PharmD Unavailable Unavail able Reason for Visit * Reason Comments Med Refill Encounter Details Date Type Department Care Team ([facility] Contact Info) Description 03/28/2024 Refill [facility] MED [facility] PEDS [address] [place], [place] [phone] Juan Miguel Tinajero MD [address] [place] [address] Sore throat; Bacterial conjunctivitis; Chronic pain syndrome [...] Description 11/11/2024 9:00 AM EDT Clinical Support [facility] PED[facility] [address] [place] [address] Elsa Barnett, RN [address] [place] [address] 11/19/2024 10:00 AM EDT Office Visit [facility] OPTOMETRY [address] [place] [address] Liban, Oneida, OD [address] [place] [address] documented as of this encounter Goals Goal [...] documented as of this encounter Care Teams Briquetter Operator Relationship Specialty Start Date End Date Juan Miguel Tinajero MD 505 [facility] [address] PCP - General Internal Medicine 05/28/18 Juan Cordova PharmD 505 [facility] [address] Pharmacist Internal Medicine 07/14/22 Yvonne Knox Roller Structural MillTrack Grinder 02/15/23 Yvonne Knox Roller Structural MillTrack Grinder 04/09/24 documented as of this encounter
--- OUTSIDE RECORDS SUMMARY | 2024-09-23 07:04 | XMS_ITS | Encounter Summary ---
Author Organization [employer] Address [address] [facility] 7t [place] [address] Care Team Providers Care Db2 Developer Name Role Phone Juan Miguel Tinajero MD Primary Care Provider [phone] Juan Cordova PharmD Unavailable Unavail able Encounter Details Date Type Department Care Team ([facility] st Contact Info) Description 10/02/2023 Telephone [facility] MEDICINE [address] [place] [address] Juan Migeul Tinajero MD [address] [place], [place] [phone] Social History Tobacco Use Types Packs/Day Years [...] Description 11/11/2024 9:00 AM EDT Clinical Support [facility] MED [facility] PEDS [address] [place] [address] Elsa Barnett RN [address] [place] [address] 11/19/2024 10:00 AM EDT Office Visit [facility] OPTOMETRY [address] [place] [address] Oneida Louie, OD [address] [place] [address] documented as of this encounter Goals Goal [...] documented as of this encounter Care Teams Db2 Developer Relationship Specialty Start Date End Date Juan Miguel Tinajero MD [address] [place] [address] PCP - General Internal Medicine 05/28/18 Juan Cordova, EbonieD [address] [place] [address] Pharmacist Internal Medicine 07/14/22 Yvonne Knox Toll Test Desk WorkerAmerican Board Certified Orthotist 02/15/23 Yvonne Knox Toll Test Desk WorkerAmerican Board Certified Orthotist 04/09/24 documented as of this encounter
--- OUTSIDE RECORDS SUMMARY | 2024-09-23 07:04 | XMS_ITS | Encounter Summary ---
Author Organization [employer] Address [address] [facility] 7t [place] [address] Care Team Providers Care Partner Name Role Phone Juan Miguel Tinajero MD Primary Care Provider [phone] Juan Cordova PharmD Unavailable Unavail able Reason for Visit * Reason Comments Med Refill Encounter Details Date Type Department Care Team ([facility] Contact Info) Description 06/28/2023 Refill [facility] MED [facility] PEDS [address] [place], [place] [phone] Juan Miguel Tinajero MD [address] [place] [address] Moderate persistent asthma without complication Social History [...] Description 11/11/2024 9:00 AM EDT Clinical Support [facility] MED [facility] PEDS [address] [place] [address] Elsa Barnett RN [address] [place] [address] 11/19/2024 10:00 AM EDT Office Visit [facility] OPTOMETRY [address] [place] [address] LibanOneida, OD [address] [place] [address] documented as of this encounter Goals Goal [...] documented as of this encounter Care Teams Partner Relationship Specialty Start Date End Date Juan Miguel Tinajero MD 505 [facility] [place] [address] PCP - General Internal Medicine 05/28/18 Juan Cordova, Benjamin 505 [facility] [place] [place] [address] Pharmacist Internal Medicine 07/14/22 Yvonne Knox Floral DesignerSpecial Education Inclusion Teacher 02/15/23 Yvonne Knox Floral DesignerSpecial Education Inclusion Teacher 04/09/24 documented as of this encounter
--- OUTSIDE RECORDS SUMMARY | 2024-09-23 07:04 | XMS_ITS | Encounter Summary ---
Author Organization [employer] Address [address] [facility] [address] [place] [address] Care Team Providers Care Irrigation Technician Name Role Phone Juan Miguel Tinajero MD Primary Care Provider [phone] Juan Cordova PharmD Unavailable Unavail able Reason for Visit * Reason Comments Med Refill Encounter Details Date Type Department Care Team ([facility] Contact Info) Description 02/19/2023 Refill [facility] MED & PEDS [address] [place] [address] Juan Miguel Tinajero MD [address] [place] [address] Peripheral arterial occlusive disease (CMS/HCC) Social History [...] Upcoming Encounters Date Type Department Care Team ([facility] Contact Info) Description 11/11/2024 9:00 AM EDT Clinical Support [facility] [address] [place] [address] Elsa Barnett, RN [address] [place] [address] 11/19/2024 10:00 AM EDT Office Visit [facility] OPTOMETRY [address] [place] [address] Oneida Louie, OD [address] [place] [address] documented as of this encounter Goals Goal [...] documented as of this encounter Care Teams Irrigation Technician Relationship Specialty Start Date End Date Juan Miguel Tinajero MD [address] [place] [address] PCP - General Internal Medicine 05/28/18 Juan Cordova, PharmD [address] [place] [address] Pharmacist Internal Medicine 07/14/22 Yvonne Knox Paving Bed MakerSericulturist 02/15/23 Yvonne Knox Paving Bed MakerSericulturist 04/09/24 documented as of this encounter
--- OUTSIDE RECORDS SUMMARY | 2024-09-23 07:04 | XMS_ITS | Encounter Summary ---
Author Organization [employer] Address [address] [facility] [address]t [place] [address] Care Team Providers Care Information Security Director Name Role Phone Juan Miguel Tinajero MD Primary Care Provider [phone] Juan Cordova PharmD Unavailable Unavail able Encounter Details Date Type Department Care Team (Late st Contact Info) Description 03/27/[address] [facility] MEDICINE [address] [place] [address] Juan Miguel Tinajero MD [address] [place], [place] [phone] Social History Tobacco Use Types Packs/Day Years [...] Description 11/11/2024 9:00 AM EDT Clinical Support [facility] MED & PEDS [address] [place] [address] Elsa Barnett, RN [address] [place], [place] [phone] 11/19/2024 10:00 AM EDT Office Visit [facility] OPTOMETRY [address] [place] [address] Liban, Oneida, OD [address] [place] [address] documented as of this encounter Goals Goal [...] documented as of this encounter Care Teams Information Security Director Relationship Specialty Start Date End Date Juan Miguel Tinajero MD [address] [place] [address] PCP - General Internal Medicine 05/28/18 Juan Cordova, PharmD [address] [place] [address] Pharmacist Internal Medicine 07/14/22 Yvonne Knox Carriage RiderVice President Process 02/15/23 Yvonne Knox Carriage RiderVice President Process 04/09/24 documented as of this encounter
--- OUTSIDE RECORDS SUMMARY | 2024-09-23 07:04 | XMS_ITS | Encounter Summary ---
Author Organization [employer] Address [address] [address] [place] [address] Care Team Providers Care Product Development Manager Name Role Phone Juan Miguel Tinajero MD Primary Care Provider [phone] Juan Cordova PharmD Unavailable Unavail able Encounter Details Date Type Department Care Team (Latest Contact Info) Description 03/17/2022 Abstract [facility] CONVERSIONS Dental, Provider, DDS Social History Tobacco [...] 9:00 AM EDT Clinical Support [facility] CHC MED & PEDS [address] [place] [address] Elsa Barnett, JENS [address] [place] [address] 11/19/2024 10:00 AM EDT Office Visit [facility] OPTOMETRY [address] [place] [address] Oneida Louie, OD [address] [place] [address] documented as of this encounter Visit Diagnoses Not on filedocumented in this encounter Care Teams Product Development Manager Relationship Specialty Start Date End Date Juan Miguel Tinajero MD [address] [facility] [place] [address] PCP - General Internal Medicine 05/28/18 Juan Cordova, Benjamin [address] [facility] [place] [address] Pharmacist Internal Medicine 07/14/22 Yvonne Knox Payroll AccountantMold Breaker 02/15/23 Yvonne Knox Payroll AccountantMold Breaker 04/09/24 documented as of this encounter
[2024-09-23 07:26] LABS: Estimated Average Glucose 146 mg/dL; Hemoglobin A1c % 6.7 % (<6.0); Total Hemoglobin (HGBA1C) 3286.7182 umol/L
[2024-09-23 08:08] LABS: Prostate Specific Antigen 0.26 ng/mL (<0.05-4.0)
== END 2024-09-23 07:02 | disposition home or self-care (01) ==
LOC: HO.LAB 07:01
PROVIDERS: PCP Internal Medicine; Visit Provider Urology
DX: E11.9 Type 2 diabetes mellitus without complications (principal); R97.20 Elevated prostate specific antigen [PSA]
CPT/HCPCS: 36415; 83036; 84153

== ENCOUNTER 2024-09-26 13:09 | Outpatient (AMB) | payer MEDICAID, SELFPAY ==
--- OUTSIDE RECORDS SUMMARY | 2024-09-26 13:32 | XMS_ITS | Encounter Summary ---
Author Organization [facility] Address [address] [address] Phone Care Team Providers Care Branch Associate Teller Name Role Phone Juan Miguel Tinajero MD Primary Care Provider [phone] Reason for Visit * Reason Onset Date Comments No Show 09/25/2024 No show Encounter Details Date Type Department Care Team (Latest Contact Info) Description 09/25/2024 Documentation Only [facility] [address] [address] Aj Grajeda MD [address] [address] No Show (No show/) Social History Tobacco Use Types Packs/Day Years Used Date Smoking Tobacco: Former Cigarettes Q uit: 2014 Smokeless Tobacco: Never Alcohol Use Standard Drinks/Week Comments Never 0 (1 standard drink = 0.6 oz pur e alcohol) Sex and Gender Information Value Date Recorded Sex Assigned at Not on file Legal Sex Male 10:12 AM EDT Gender Identity Not on file Sexual Orientation Not on file documented as of this encounter Plan of Treatment Upcoming Encounters Date Type Department Care Team (Late st Contact Info) Description 09/29/2024 Orders Only [facility] [address] [address] Aj Grajeda MD [facility] [address] Stage 3a chronic kidney disease (HCC); Other acute kidney failure (HCC); Nephrolithiasis; Peripheral arterial occlusive disease (HCC); Hypertensive disorder documented as of this encounter Visit Diagnoses Not on filedocumented in this encounter Care Teams Branch Associate Teller Relationship Specialty Start Date End Date Juan Miguel Tinajero MD [address] [place] [address] PCP - General Internal Medicine 02/11/21 documented as of this encounter
--- OUTSIDE RECORDS SUMMARY | 2024-09-26 13:32 | XMS_ITS | Clinical Summary ---
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 Gets regular SOFTWARE QUALITY TESTER follow up and has Narcan prescribed. F/U with me in 3 months. He agrees with the plan. Multi vessel coronary artery disease 07/06/2021 Asthma 04/14/2021 03/28/2023 Stage 3a chronic kidney disease 02/13/2021 Cyst of kidney 02/13/2021 Nephrolithiasis 02/13/2021 Acute nontraumatic kidney injury 02/11/2021 Hypertensive disorder 04/23/2017 03/28/2023 Peripheral arterial occlusive disease 04/23/2017 03/28/2023 Erectile dysfunction 10/27/2011 03/28/2023 Resolved Problems Problem Noted Date Diagnosed Date Resolved Date Infestation by Sarcoptes scabiei reji hominis 2 03/28/2023 09/26/2023 Diarrhea 02/13/2021 01/10/2022 Chronic kidney disease 02/11/202102/13 Elevated prostate specific antigen (PSA) 02/11/2021 02/13/2021 Low back pain 09/21/2020 03/28/2023 09/26/2023 Benign essential hypertension 07/21/2020 03/28/2023 09/24/2024 Postoperative wound infection 10/23/2018 01/10/2022 Skin tag 10/23/2018 01/10/2022 Closed fracture of multiple ribs 10/02/2018 01/10/2022 Shoulder pain 08/02/2018 01/10/2022 Deltoid tendinitis 05/30/2018 Type 2 diabetes mellitus 04/23/2017 03/28/202305/2023 Encounters Date Type Department Care Team Description 09/25/2024 Documentation Only [facility] [address] [id number] Aj Grajeda MD No Show (No show/) 09/08/2024 Refill [facility] [address] [id number] Radha Black MA 09/08/2024 Refill [facility] [address] [id number] Radha Black MA 09/05/2024 Refill [facility] [address] [facility] [address] [place] [address] Aj Grajeda MD from Last 3 Months [...] Orders Only [facility] [address] [address] Aj Grajeda MD [address] [address] Stage 3a chronic kidney disease [...] Visual Foot Exam 03/28/2023 Diabetes: Hemoglobin A1C 12/23/2024 025, 05/14/2024, 11/01/2023, Additional history exists Pneumococcal Vaccine: 50+ Years [...] Relevant to Health Maintenance Results * (ABNORMAL) Protein, Total, Random Urine w/Creatinine (Protein/Creat Ratio) (09/22/2024 8:17 AM EDT) Creatinine, Ur 40.4 Not Estab. mg/dL [facility] Protein, Ur 99.2 Not Estab. mg/dL [facility] Urine Protein/Creati nine Ratio 2,455(H) 0 - 200 mg/g creat [facility] 09/22/2024 8:17 AM EDT 09/22/2024 us Aj Garjeda MD LAB URINE ORDERABLES Final Re sult [facility] [address] [place] [address] * Vitamin D 25 Hydroxy (09/22/2024 8:17 AM EDT) Vitamin D, 25-OH, Total 34.1 30.0 - 100.0 ng/mL [facility] Comment: Vitamin D deficiency has been defined by the Mull[place] of Medicine and an Endocrine Society practice guideline as a level of serum 25-OH vitamin D less than 20 ng/mL (1,2). The Endocrine Society went on to further define vitamin D insufficiency as a level between 21 and 29 ng/mL (2). 1. IOM ([place] of Medicine). 2010. Dietary reference ?? intakes for calcium and D. [place]: The ?? National Nutrinia Press. 2. Tessy MF, Cruzito NC, Prasad DURBIN, et al. ?? Evaluation, treatment, and prevention of vitamin D ?? deficiency: an Endocrine Society clinical practice ?? guideline. JCEM. 2010; 96(7):1911-30. 09/22/2024 8:17 AM EDT 09/22/2024 us Aj Grajeda MD LAB BLOOD ORDERABLES Final Re sult [facility] [address] [place] [address] * CBC and Differential (09/22/2024 8:17 AM EDT) WBC 6.6 3.4 - 10.8 x10E3/uL [facility] RBC 4.56 4.14 - 5.80 x10E6/uL [facility] Hemoglobin 13.0 13.0 - 17.7 g/dL [facility] Hematocrit 39.7 37.5 - 51.0 % [facility] MCV 87 79 - 97 fL [facility] MCH 28.5 26.6 - 33.0 pg [facility] MCHC 32.7 31.5 - 35.7 g/dL [facility] RDW 14.1 11.6 - 15.4 % [facility] Platelets 210 150 - 450 x10E3/uL [facility] Neutrophils Relative 61 Not Estab. % [facility] Lymphocytes Relative 26 Not Estab. % [facility] Monocytes 7 Not Estab. % [facility] Eosinophils Relative 5 Not Estab. % [facility] Basophils Relative 1 Not Estab. % [facility] Neutrophils Absolute 4.1 1.4 - 7.0 x10E3/uL [facility] Lymphocytes Absolute 1.7 0.7 - 3.1 x10E3/uL [facility] Monocytes Absolute 0.4 0.1 - 0.9 x10E3/uL [facility] Eosinophils Absolute 0.3 0.0 - 0.4 x10E3/uL [facility] Basophils Absolute 0.0 0.0 - 0.2 x10E3/uL [facility] Immature Granulocytes 0 Not Estab. % [facility] Immature Grans (Absolute) 0.0 0.0 - 0.1 x10E3/uL [facility] 09/22/2024 8:17 AM EDT 09/22/2024 Aj Grajeda MD LAB BLOOD ORDERABLES Final Re sult Performing Organization Address City/[facility]/ZIP Co de Phone Number [facility] [address] [place] [address] * Uric Acid (09/22/2024 8:17 AM EDT) Uric Acid 6.1 3.8 - 8.4 mg/dL [facility] Comment:Therapeutic target f or gout patients: <6.0 09/22/2024 8:17 AM EDT 09/22/2024 Aj Grajeda MD LAB BLOOD ORDERABLES Final Re sult [facility] [address] [place] [address] * Phosphorus (09/22/2024 8:17 AM EDT) Phosphorus 3.3 2.8 - 4.1 mg/dL [facility] 09/22/2024 8:17 AM EDT 09/22/2024 Aj Grajeda MD LAB BLOOD ORDERABLES Final Re sult Performing Organization Address City/[facility]/ZIP Co de Phone Number [facility] [address] [place] [address] * PTH, Intact (09/22/2024 8:17 AM EDT) PTH 36 15 - 65 pg/mL [facility] 09/22/2024 8:17 AM EDT 09/22/2024 Aj Grajeda MD LAB BLOOD ORDERABLES Final Re sult Performing Organization Address [facility] Co de Phone Number [facility] [address] [place] [address] * Magnesium (09/22/2024 8:17 AM EDT) Magnesium 1.8 1.6 - 2.3 mg/dL [facility] 09/22/2024 8:17 AM EDT 09/22/2024 Aj Grajeda MD LAB BLOOD ORDERABLES Final Re sult Performing Organization Address City/[facility]/ZIP Co de Phone Number [facility] [address] [place] [address] * (ABNORMAL) Comprehensive Metabolic Panel (09/22/2024 8:17 AM EDT) Glucose 137(H) 70 - 99 mg/dL [facility] BUN 10 8 - 27 mg/dL [facility] Creatinine 1.09 0.76 - 1.27 mg/dL [facility] eGFR CKD-EPI CR 2020 76 >59 mL/min/1.7 3 [facility] BUN/Creatinine Ratio 9(L) 10 - 24 [facility] Sodium 143 134 - 144 mmol/L [facility] Potassium 4.4 3.5 - 5.2 mmol/L [facility] Chloride 105 96 - 106 mmol/L [facility] Bicarbonate (CO2) 20 20 - 29 mmol/L [facility] Calcium 9.4 8.6 - 10.2 mg/dL [facility] Total Protein 6.8 6.0 - 8.5 g/dL [facility] Albumin 4.2 3.9 - 4.9 g/dL [facility] Globulin 2.6 1.5 - 4.5 g/dL [facility] Total Bilirubin 0.4 0.0 - 1.2 mg/dL [facility] Alkaline Phosphatase 106 44 - 121 IU/L [facility] AST (SGOT) 20 0 - 40 IU/L [facility] ALT (SGPT) 15 0 - 44 IU/L [facility] 09/22/2024 8:17 AM EDT 09/22/2024 us Aj Grajeda MD LAB BLOOD ORDERABLES Final Re sult [facility] [address] [place] [address] * (ABNORMAL) Hemoglobin A1c (03/21/2023 8:20 AM EDT) Hemoglobin A1C 6.6(H) (4.0-5.6) % [facility] Comment: MONITORING: In known diabetic patients, hemoglobin A1c targets should be discussed with health care provider. DIAGNOSTIC USE: ??The [place] Diabetes Association (ADA) and the World Health [...] Supplement 1 Testing performed or reported by [facility], a Service of [facility], [address] [place] [address] Zachary Sanders MD, Elevator Pilot [facility]# [id number] Blood (Blood, Venous) 03/21/2023 8:20 AM EDT 03/21/2023 8:25 AM EDT us Aj Grajeda MD LAB BLOOD ORDERABLES Final Re sult [facility] from Last 3 Months or Most Recently Relevant to Health Maintenance [place] Care Teams Brake Tester Relationship Specialty Start Date End Date Juan Miguel Tinajero MD [address] [place] [phone] PCP - General Internal Medicine 02/11/21
--- OUTSIDE RECORDS SUMMARY | 2024-09-26 13:32 | XMS_ITS | Clinical Summary ---
Author Organization [facility] ity Address [address] [place] [address] Care Team Providers Care Yarn Sizer Name Role Phone Unavailable Primary Care Provider [...]
--- OUTSIDE RECORDS SUMMARY | 2024-09-26 13:32 | XMS_ITS | Continuity of Care Document ---
Author Organization [facility] Address [address] [place] [address] Phone Care Team Providers Care Consultants Intern Name Role Phone Unavailable Unavailable Unavailable Allergies, [...] kit take 1 not specified by [facility]non-drug; combo) route 4 times every day 1 [...] Location Reason(s) For Visit Diagnoses Date Provider [address], [id number] , [place] tel:+ [phone] [facility] No Information No Information [address], [id number] , [place] tel:[phone] [facility] No Information 9 Shawn Gandhi. [facility] Ady Francisco, [id number] [place], [address], [place]. tel:[phone] [facility], [address] [place] [address], [id number] , tel: [phone] [facility] Follow Up of flank pain (chief complaint) Body mass index (BMI) 38.0-38.9, adultType 2 diabetes mellitus without complication, with long-term current use of insulinAbdominal bloatingRight kidney mass Jan- No Information [address], [id number] , tel: [phone] [facility] diabetes (chief complaint). (chief complaint) Right kidney massType 2 diabetes mellitus with hyperglycemiaBody mass index (BMI) 37.0-37.9, adult Jan- No Information [address], [id number] , tel: [phone] [facility] No Information No Information [facility], [address] [place] [address], [id number] , [place] tel: [phone] [facility] Follow Up of diabetes (chief complaint)Gas (chief complaint) Body mass index (BMI) 38.0-38.9, adultType 2 diabetes mellitus without complication, with long-term current use of insulinDiarrhea, unspecified typeDDD (degenerative disc disease), cervicalEssential hypertensionHyperlipid emia, unspecified hyperlipidemia typeHistory of HI (myocardial infarction) No Information [address], [id number] , [place] tel: [phone] [facility] flank pain (chief complaint)Skin tag(s) (chief complaint)Vas [...] mellitusInfected surgical wound 9 No Information [address], [id number] , [place] tel:+ [phone] [facility] No Information 9 No Information One [address], [id number] , [place] tel:+ [phone] [facility] diabetes (chief complaint)hype rtension (chief complaint)foll ow up [facility] (chief complaint)Flan k pain (chief complaint) Body mass index (BMI) 37.0-37.9, adultClosed fracture of multiple ribs of right side with routine healing, subsequent encounterEssential hypertensionHyperlipid emia, unspecified hyperlipidemia typeType 2 diabetes mellitus with hyperglycemiaHistory of HI (myocardial infarction)Other diabetic neurological complication associated with type 2 diabetes mellitus 9 No Information One [address], [id number] , [place] tel:+ [phone] [facility] Follow Up of Shoulder pain (chief complaint) Body mass index (BMI) 37.0-37.9, adultLeft anterior shoulder pain 9 No Information One [address], [id number] , [place] tel:+ [phone] [facility] shoulder pain (chief complaint) Body mass index (BMI) 37.0-37.9, adultLeft anterior shoulder pain 9 No Information One [address], [id number] , [place] tel:+ [phone] [facility] immunizations (chief complaint)Ches t pain (chief complaint)diab etes (chief complaint) Body mass index (BMI) 38.0-38.9, adultType 2 diabetes mellitus with hyperglycemiaEssential hypertension 9 No Information One [address], [id number] , [place] tel:+ [phone] [facility] shoulder pain (chief complaint)diab etes (chief complaint) Body mass index (BMI) 38.0-38.9, adultType 2 diabetes mellitus with hyperglycemiaBilateral claudication of lower limbDeltoid tendonitis of left shoulder 9 No Information One [facility], [address] [place] [address], [id number] , tel: [phone] [facility] elbow pain (chief complaint)foll ow up on lab test(s) (chief complaint)diab etes (chief complaint) Body mass index (BMI) 38.0-38.9, adultArthritis of elbow, leftType 2 diabetes mellitus with hyperglycemia 8 No Information One [address], [id number] , tel:+ [phone] [facility] No Information 8 No Information One [facility], [address] [place] [address], [id number] , [place] tel:+ [phone] [facility] establish pcp (chief complaint)diab etes (chief complaint)hype rtension (chief complaint) Body mass index (BMI) 37.0-37.9, adultAcute stress reactionEssential hypertensionType 2 diabetes mellitus without complication, with long-term current use of insulinFlu vaccine needHyperlipidemia, unspecified hyperlipidemia typeHistory of HI (myocardial infarction)Other diabetic neurological complication associated with [...] Insurance type Covered republican ID Authoriza tion(s) [facility] [id number] [facility] [id number] [facility] [id number] [facility] [id number] [facility] [id number] ODJFS [facility] [id number] Social History Type Description Quantity Date Captured [...] Lab Order COMPREHE NSIVE METABOLIC PANEL W/EGFR (22090V), Ordered on: Ordered History Of Present Illness [...] patient. diabetes Risk factors inc lude: / Algerian, family history diabetes mellitus, obesity, over age [...] of diabetes Risk facto rs include: / Algerian, family history diabetes mellitus, obesity, over age [...] having pain, out of medication. Was at [facility] in August for fractured ribs [...] 06 with the vascular surgeon. . The quality specialist phone was used through this entire visit. Patient speaks only Estonian. follow up [facility] Was at [facility] for rib pain. Flank pain [...] states unable to sleep d/t pain, at [facility] in August for fx of right rib. hypertension Comorbid conditi ons include diabetes mellitus and post-HI. Risk factors include family history HTN, gout or CAD, inactive lifestyle, male gender and obesity. The hypertension is exacerbated by nothing. Pertinent negatives include chest pain, claudication, confusion, diaphoresis, dyspnea, epistaxis, fatigue, headache, hematuria, irregular heartbeat/palpitations, nausea, tinnitus, transient weakness, tremor, visual disturbances and vomiting. Additional information: medication refills diabetes Risk factors inc lude: / Algerian, family history diabetes mellitus, obesity, over age [...] tobacco use. Patient was seen at [facility] last for chest pain. Patient states he took nitro x 3 before going to the hospital. Stress test and CTA of chest were unremarkable. immunizations Patient wants te tanus vaccine. diabetes Risk factors inc lude: / Algerian, family history diabetes mellitus and sedentary lifestyle. [...] shoulder. diabetes Risk factors inc lude: / Algerian, family history diabetes mellitus and sedentary lifestyle. [...] weakness. diabetes Risk factors inc lude: / Algerian, family history diabetes mellitus and sedentary lifestyle. Pertinent negatives include blurred vision, burning of extremities, chest pain, constant hunger, dental disease, diarrhea, dysesthesias, dyspnea, foot ulcers, frequent infections, frequent urination, heartburn, hypoglycemic episodes, increased fatigue, nocturia, polydipsia and slow healing wounds / sores. diabetes Risk factors inc lude: / Algerian, family history diabetes mellitus and sedentary lifestyle. Pertinent negatives include chest pain, diarrhea and dyspnea. Additional information: establishing care today- needs all refills and glucometer. hypertension Comorbid conditi ons include diabetes mellitus and post-HI. Risk factors include family history HTN, gout or CAD and male gender. Pertinent negatives include chest pain, dyspnea, fatigue, headache, hematuria, irregular heartbeat/palpitations, nausea and vomiting. Additional information: establishing care- needs to also establish with cardiology for annual check ups establish pcp Patient presents today to establish PCP. PMH: diabetes, hypertension, hyperlipidemia, gerd, neuropathy, HI 2014- cardiac bypass surgey, 5 stents placed, Hx stroke 2015 last saw his heart doctor 4 months ago, was going ever 6 months in [place], recently moved here - needs cardiology referral [...]
--- NOTE | 2024-09-26 13:37 | MHC.OFFVIS ---
Intake Visit Reasons: discuss penile prosthetic(LABS?) Intake Note: Patient is present for DISCUSS PENILE PROSTHETIC Urology Medication:NONE Antibiotic Allergy:NONE Blood Thinner:ASPIRIN Licensed Final Expense Agents Required: Yes Allergies No Known Allergies Allergy (Verified 10/23/24 08:20) HPI Comments Details: Osvaldo is a pleasant Chinese-speaking male. Patient of Dr. Tinajero. He is seen for the following urologic conditions - erectile dysfunction Progressive in setting of diabetes Interested in penile prosthetic Erectile dysfunction in setting of diabetes Initially responded to oral medications Has been using penile injections with minimal improvement Failed high-dose Cialis with on demand. PSAs: 01/15 0.2, 07/19 0.2, 07/20 0.2, 09/18 0.2 Testosterone: 06/20 395 Free testosterone: 06/20 53.3 A1c: 12/15 9.7%, 06/20 5.6 PFSH Medical History Arthritis Asthma Peripheral arterial occlusive disease Hyperlipidemia IBS (irritable bowel syndrome) Benign prostatic hyperplasia without lower urinary tract symptoms GERD (gastroesophageal reflux disease) Chronic kidney disease Acute kidney failure Abdominal bloating Painful arc syndrome of right shoulder Chronic idiopathic constipation Tubular adenoma Myocardial infarct, old Diabetes PVD (peripheral vascular disease) CAD (coronary artery disease) Family history of prostate cancer Scrotal swelling Elevated PSA Surgical History Hx of aorto-femoral bypass History of coronary artery stent placement Hx of coronary angioplasty Hx of ligation of vein History of esophagogastroduodenoscopy (EGD) Hx of colonoscopy Hx of arthroscopic knee surgery History of surgery History of vascular surgery History of cardiac cath Family History Maternal Grandmother Diabetes Paternal Grandmother Diabetes Brother Diabetes Mother No problems noted. 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) Alcohol intake: never Patient Tobacco Use Status: Former Tobacco user Years Smoked: 35+ Current occupational status: disabled Current occupation: right hand dominant Review of Systems Const Denies chills and Denies fever(s) Card Reports no additional complaints and Denies syncope Resp Denies cough GI Denies abdominal pain and Denies heartburn Reports as per HPI and Denies change in libido Neuro Denies syncope Psych Denies change in libido Endo Denies change in libido Physical Exam Const General: cooperative, healthy appearing, comfortable and no acute distress Orientation/consciousness: patient oriented x3 HEENT Face and sinus: Yes normal facial exam Mouth: moist mucous membranes Neck Neck: Yes normal visual inspection, Yes full ROM and Yes trachea midline Chest Chest palpation & inspection: normal inspection of the chest Resp Effort & Inspection: normal respiratory effort, able to speak in complete sentences and no respiratory distress GI Inspection: Yes normal to inspection Back/Spine/Pelvis Cervical Spine: normal cervical lordosis Thoracic/Lumbar Spine: thoracic and lumbar spine normal to inspection Skin General skin exam: no rashes or lesions noted Neuro General: patient oriented x3, gait normal, tone normal and moves all extremities Extrem General: Yes normal to inspection and Yes capillary refill normal Assessment & Plan Assessment & Plan (1) Elevated PSA: Code(s): R97.20 - Elevated prostate specific antigen [PSA] Category: Medical (2) Erectile dysfunction associated with type 2 diabetes mellitus: Code(s): E11.69 - Type 2 diabetes mellitus with other specified complication; N52.1 - Erectile dysfunction due to diseases classified elsewhere Category: Medical Plan The patient was counseled in detail regarding penile prosthesis implantation as a treatment option for medically refractory erectile dysfunction. The procedure, risks, benefits, alternatives, and postoperative expectations were reviewed extensively. Benefits discussed: - Denominational of erectile function with high satisfaction rates - Reliable and spontaneous control of erections - Fully internal device with discreet appearance - Long-term solution when other therapies fail Risks and potential complications reviewed: - Surgical risks: bleeding, hematoma, infection, pain, wound issues, anesthesia complications - Device-related risks: mechanical failure, erosion, device migration, auto-inflation or deflation issues, need for revision surgery - Functional risks: altered penile length or sensation, dissatisfaction with rigidity or angle The patient was informed that: - The device is permanent and irreversible - Success depends on individual anatomy, comorbidities, and healing - The average device lifespan is ~10?15 years, with a low annual failure rate (~1?2%) Alternatives reviewed: - Continued use of PDE5 inhibitors - Intracavernosal injections - Vacuum erection devices - Psychosexual counseling - Observation/no treatment Patient Understanding & Consent: - The patient verbalized understanding of the procedure, risks, and alternatives - All questions were answered to the patient?s satisfaction - The patient understands that other ED therapies may no longer be effective or recommended after device placement - Informed consent was obtained for penile prosthesis implantation Orders: Orders Hemoglobin A1c 09/23/24 E11.9 - Type 2 diabetes mellitus without complications Prostate Specific Antigen 09/23/24 R97.20 - Elevated prostate specific antigen [PSA] Patient Instructions: This note is constructed using voice recognition software. While every effort has been made to ensure accuracy bale breaker operator errors may have been included. Imaging studies, laboratory and physical exam results were discussed and reviewed in detail. No major barriers to patient understanding were identified. An opportunity to ask questions regarding the treatment plan was provided. All questions were answered. The patient expressed understanding and agreement with the above treatment plan. The patient is aware they should contact our office by phone for worsening of their current condition or the appearance of new urologic symptoms. Compliance is encouraged with any medications and followup testing that is ordered. It is a privilege to participate in the urologic care of your patient. If you have any questions or concerns regarding treatment for the above conditions, or other urologic issues, please do not hesitate to contact me. The office telephone contact is [phone]. Sincerely, Dr Sachin Oswald MD, [facility] - Urology Compassionate Specialist Care for the Genitourinary System Coding Level of Care Code Est Pt Level 4 (16656) Complex EM visit Add On G2211 Diagnoses Elevated PSA R97.20 Erectile dysfunction associated with type 2 diabetes mellitus E11.69; N52.1
== END 2024-09-26 14:25 | disposition home or self-care (01) ==
LOC: HO.HUSH 13:10
PROVIDERS: PCP Internal Medicine; Visit Provider Urology
DX: R97.20 Elevated prostate specific antigen [PSA] (principal); E11.69 Type 2 diabetes mellitus with other specified complication; N52.1 Erectile dysfunction due to diseases classified elsewhere
CPT/HCPCS: 99214

== ENCOUNTER → 2024-09-26 13:09 | Outpatient (BNVA) | payer MEDICAID, SELFPAY | PROVIDERS: PCP Internal Medicine; Visit Provider Urology | DX: E11.69 Type 2 diabetes mellitus with other specified complication (principal); N52.1 Erectile dysfunction due to diseases classified elsewhere; R97.20 Elevated prostate specific antigen [PSA] | CPT/HCPCS: 99212 ==

== ENCOUNTER 2024-10-23 08:17 | Outpatient (AMB) | payer MEDICAID, SELFPAY ==
--- NOTE | 2024-10-23 08:20 | A.OFFVIS_ITS ---
Vital Signs 10/23/24 08:44 Height 5 ft 4 in Weight 197 lb BMI 33.8 Intake Visit Reasons: OV - right RTC repair 01/30/24 NE 3 WK follow up Intake Note: Osvaldo is a 63 year old right hand dominant male who presents today for a follow up visit of his right shoulder s/p Right RTC Repair 01/30/24. At his last visit her was advised to do no heavy lifting. Allergies No Known Allergies Allergy (Verified 10/23/24 08:20) HPI HPI OV - right RTC repair 01/30/24 NE 3 WK follow up: Details: Osvaldo is a 63 year old right hand dominant male who presents today for a follow up visit of his right shoulder s/p Right RTC Repair 01/30/24. At his last visit her was advised to do no heavy lifting. Overall he feels well. He has no pain. He states he notices slight discomfort with occasional overhead motion. [facility] Medical History Arthritis Asthma Peripheral arterial occlusive disease Hyperlipidemia IBS (irritable bowel syndrome) Benign prostatic hyperplasia without lower urinary tract symptoms GERD (gastroesophageal reflux disease) Chronic kidney disease Acute kidney failure Abdominal bloating Painful arc syndrome of right shoulder Chronic idiopathic constipation Tubular adenoma Myocardial infarct, old Diabetes PVD (peripheral vascular disease) CAD (coronary artery disease) Family history of prostate cancer Scrotal swelling Elevated PSA Surgical History Hx of aorto-femoral bypass History of coronary artery stent placement Hx of coronary angioplasty Hx of ligation of vein History of esophagogastroduodenoscopy (EGD) Hx of colonoscopy Hx of arthroscopic knee surgery History of surgery History of vascular surgery History of cardiac cath Family History Maternal Grandmother Diabetes Paternal Grandmother Diabetes Brother Diabetes Mother No problems noted. 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 He is 9 months out and doing well. No restrictions. Obviously may have some mild occasional discomfort and should avoid exacerbating activity but no formal restrictions. May follow up as needed. Coding Level of Care Code Est Pt Level 3 (13847) Diagnoses S/P right rotator cuff repair Z98.890
--- OUTSIDE RECORDS SUMMARY | 2024-10-23 08:25 | XMS_ITS | Encounter Summary ---
Author Organization [employer] Address [address] [facility] [address] [place] [address] Care Team Providers Care Cigarette Vendor Name Role Phone Juan Miguel Tinajero MD Primary Care Provider [phone]- [phone] Juan Cordova PharmD Unavailable Unavail able Reason for Visit * Reason Comments Med Refill Encounter Details Date Type Department Care Team ([facility] st Contact Info) Description 09/21/2023 Refill [facility] MED [facility] PEDS [address] [place], [place] [phone] Juan Miguel Tinajero MD [address] [place] [address] Chronic right shoulder pain; Pain in right [...] Description 11/11/2024 9:00 AM EDT Clinical Support [facility] PEDS [address] [place] [address] Elsa Barnett, RN [address] [place] [address] 11/19/2024 10:00 AM EDT Office Visit [facility] OPTOMETRY [address] [place] [address] LibanOneida chavez, OD [address] [place] [address] documented as of this encounter Goals Goal Patient Goal Type Associated Problems Recent Progress Patient-Stated? Author Blood Pressure < 140/90 Blood Pressure 145/90(2024 10:18 AM EST) No Juan Cordova, PharmD Hemoglobin A1c < 7 Result Component 6.7( 7:08 AM EDT) No Juan Cordova, PharmD documented as of this encounter Visit Diagnoses Diagnosis Chronic right shoulder pain Pain in joint, shoulder region Pain in right shoulder Back pain, unspecified back location, unspecified back pain laterality, unspecified chronicity documented in this encounter Additional Health Concerns Assessment Noted Time PHQ-9 Depression Total Score: 1 08/30/19 24 1:41 PM EDT documented as of this encounter Care Teams Cigarette Vendor Relationship Specialty Start Date End Date Juan Miguel Tinajero MD [address] [facility] [place] [address] PCP - General Internal Medicine 05/28/18 Juan Cordova, EbonieD [address] [place] [address] Pharmacist Internal Medicine 07/14/22 Yvonne Knox Concentrator OperatorMineral Engineer 02/15/23 Yvonne Knox Concentrator OperatorMineral Engineer 04/09/24 documented as of this encounter
[2024-10-23 08:44] VITALS: BMI 33.8
== END 2024-10-23 09:33 | disposition home or self-care (01) ==
LOC: HO.HOS 08:18
PROVIDERS: PCP Internal Medicine; Visit Provider Orthopaedic Surgery
DX: Z47.89 Encounter for other orthopedic aftercare (principal); Z98.890 Other specified postprocedural states
CPT/HCPCS: 99213

== ENCOUNTER → 2024-10-23 08:17 | Outpatient (BNVA) | payer MEDICAID, SELFPAY | PROVIDERS: PCP Internal Medicine; Visit Provider Orthopaedic Surgery | DX: Z98.890 Other specified postprocedural states (principal) | CPT/HCPCS: 99212 ==

== ENCOUNTER 2024-11-18 08:10 | Outpatient (REF) | payer MEDICAID, SELFPAY ==
--- OUTSIDE RECORDS SUMMARY | 2024-11-18 08:17 | XMS_ITS | Encounter Summary ---
Author Organization [employer] Address [address] [facility] [address] [place] [address] Care Team Providers Care Refrigeration Person Name Role Phone Juan Miguel Tinjaero MD Primary Care Provider +1- [phone] Juan Cordova PharmD Unavailable Unavail able Reason for Visit * Reason Comments Med Refill Encounter Details Date Type Department Care Team ([facility] st Contact Info) Description 09/21/2023 Refill [facility] MED [facility] PEDS [address] [place], [place] [phone] Juan Miguel Tinajero MD [address] [place] [address] Chronic right shoulder pain; Pain in right [...] Care Team (Late st Contact Info) Description 11/19/2024 10:00 AM EDT Office Visit [facility] OPTOMETRY [address] [place] [address] LibanOneida chavez, OD [address] [place] [address] 02/02/2025 9:30 AM EDT Telemedicine [facility] MED & PEDS [address] [place] [address] Elsa Barnett, RN [address] [place] [address] documented as of this encounter Goals Goal Patient Goal Type Associated Problems Recent Progress Patient-Stated? Author Blood Pressure < 140/90 Blood Pressure 150/80(2024 1:01 PM EDT) No Juan Cordova, PharmD Hemoglobin A1c < [...] Time PHQ-9 Depression Total Score: 1 08/30/19 1:41 PM EDT documented as of this encounter Care Teams Refrigeration Person Relationship Specialty Start Date End Date Juan Miguel Tinajero MD [address] [facility] [place] [address] PCP - General Internal Medicine 05/28/18 Juan Cordova PharmD [address] [facility] [place] [address] Pharmacist Internal Medicine 07/14/22 Yvonne Knox Helpdesk ManagerElectric Meter Reader 02/15/23 Yvonne Knox Helpdesk ManagerElectric Meter Reader 04/09/24 documented as of this encounter
[2024-11-18 14:02] LABS: MANUAL DIFF FLAG NO
[2024-11-18 14:11] LABS: Basophils Percent Auto 0.4 % (0-2); Eosinophils Absolute Auto 0.3 X10*3/uL (0.0-0.4); Hematocrit 39.4 % (42.0-52.0); Imm Gran Abs Auto 0.01 X10*3/uL (0.00-0.03); Imm Gran Pct Auto 0.1 % (0.0-0.4); Lymphocytes Absolute Auto 1.8 X10*3/uL (1.2-4.9); Mean Corpuscular Hemoglobin 27.5 pg (27.0-33.0); Mean Corpuscular Volume 83.3 fL (80.0-98.0); Mean Platelet Volume 10.8 fL (9.4-12.4); Monocytes Absolute Auto 0.4 X10*3/uL (0.1-1.2); Monocytes Percent Auto 6.5 % (2-11); Neutrophils Absolute Auto 4.2 x10*3/uL (2.0-8.3); Platelet Count 193 X10*3/uL (160-400); Red Blood Count 4.73 X10*6/uL (4.60-5.80); Red Cell Distribution Width 14.6 % (11.0-16.0); White Blood Count 6.7 X10*3/uL (4.8-10.8)
[2024-11-18 14:24] LABS: Alanine Aminotransferase 18 U/L (0-40); Alkaline Phosphatase 82 U/L (39-117); Anion Gap 12 (12-20); Aspartate Amino Transferase 24 U/L (5-37); Bilirubin Total 0.4 mg/dL (0.0-1.0); Blood Urea Nitrogen 15 mg/dL (9-16); Calcium 8.9 mg/dL (8.4-10.2); Carbon Dioxide 27 mmol/L (22-29); Chloride 107 mmol/L (96-108); Estimated Glomerular Filt Rate 52; Glucose Random 200 mg/dL (60-115); Potassium 3.8 mmol/L (3.3-5.1); Sodium 142 mmol/L (135-145); Total Protein 6.9 g/dL (6.5-8.0)
== END 2024-11-18 08:11 | disposition home or self-care (01) ==
LOC: HO.CHCLDS 08:10
PROVIDERS: Visit Provider Internal Medicine
DX: R63.0 Anorexia (principal)
CPT/HCPCS: 36415; 80053; 85025

== ENCOUNTER 2024-12-22 05:38 | Day surgery (SDC) | payer MEDICAID, SELFPAY ==
--- OUTSIDE RECORDS SUMMARY | 2024-10-31 11:48 | XMS_ITS | Encounter Summary ---
Author Organization [employer] Address [address] [facility] [address] [place] [address] Care Team Providers Care Intern Architect Name Role Phone Juan Miguel Tinajero MD Primary Care Provider [phone]- [phone] Juan Cordova PharmD Unavailable Unavail able Reason for Visit * Reason Comments Med Refill Encounter Details Date Type Department Care Team ([facility] st Contact Info) Description 09/21/2023 Refill [facility] MED & PEDS [address] [place], [place] [phone] Juan Miguel Tinajero MD [address] [place] [address] Chronic right shoulder pain; Pain in right [...] Description 11/11/2024 9:00 AM EDT Clinical Support [facility] MED [facility] PEDS [address] [place] [address] Elsa Barnett, RN [address] [place] [address] 11/19/2024 10:00 AM EDT Office Visit [facility] OPTOMETRY [address] [place] [address] LibanOneida chavez, OD [address] [place] [address] documented as of this encounter Goals Goal [...] documented as of this encounter Care Teams Intern Architect Relationship Specialty Start Date End Date Juan Miguel Tinajero MD [address] [facility] [place] [address] PCP - General Internal Medicine 05/28/18 Juan Cordova, EbonieD [address] [place] [address] Pharmacist Internal Medicine 07/14/22 Yvonne Knox Sr. Strategic Sourcing ManagerLife Skills Coordinator 02/15/23 Yvonne Knox Sr. Strategic Sourcing ManagerLife Skills Coordinator 04/09/24 documented as of this encounter
--- NOTE | 2024-12-19 13:16 | HO.ANESPROP2 ---
Documented by User: Nitza Treadwell NP 12/19/24 14:47 HPI - Anesthesia Eval Consult details Narrative: 64 yr old male for penile prosthesis insertion H/O ND/CAD: last cardiology visit 07/2024, work load note clearing pt for surgery Type 2 DM: A1C 6.7%, on GLP-1, insulin On gabapentin GERD: on PPI Anesthesia Pre-Procedure Meds Is the patient on any of the following meds?: GLP1/DPP4 PMFSH Active Problems Active Problems: All Active Problems (Updated 02/20/24 @ 11:09 by Porfirio Ghosh MD) Bilateral shoulder pain (Acute) S/P right rotator cuff repair (Acute) Polymyalgia (Acute) Stable angina (Acute) Erectile dysfunction associated with type 2 diabetes mellitus (Acute) Tendinosis of right shoulder (Acute) Chronic right shoulder pain (Acute) Injury of right rotator cuff (Acute) Prostatitis (Acute) PVD (peripheral vascular disease) (Acute) Abnormal stress test (Acute) Preop cardiovascular exam (Acute) CAD (coronary artery disease) (Acute) Chest pain (Acute) Painful arc syndrome of right shoulder (Acute) Chronic idiopathic constipation (Acute) Tubular adenoma (Acute) Family history of prostate cancer (Acute) Scrotal swelling (Acute) Elevated PSA (Acute) Past Medical History Medical History Arthritis Asthma Peripheral arterial occlusive disease Hyperlipidemia IBS (irritable bowel syndrome) Benign prostatic hyperplasia without lower urinary tract symptoms GERD (gastroesophageal reflux disease) Chronic kidney disease Acute kidney failure Abdominal bloating Painful arc syndrome of right shoulder Chronic idiopathic constipation Tubular adenoma Myocardial infarct, old Diabetes PVD (peripheral vascular disease) CAD (coronary artery disease) Family history of prostate cancer Scrotal swelling Elevated PSA Family History Family History Maternal Grandmother Diabetes Paternal Grandmother Diabetes Brother Diabetes Mother No problems noted. 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 If so, by whom?: No Are you DNR?: No Advance Directives: No Advance Directives Information Provided: Yes Current occupational status: disabled Current occupation: right hand dominant Meds Allergies Allergy/AdvReac Type Severity Reaction Status Date / Time No Known Allergies Allergy Verified 12/22/24 06:19 Home Medications ?Medication ?Instructions ?Recorded ?Confirmed ?Last Taken ?Type albuterol sulfate 2.5 mg/0.5 mL 5 mg inhalation Q4H PRN Shortness 11/11/20 12/22/24 08/16/21 History solution for nebulization Of Breath Or Wheezing aspirin 81 mg tablet,delayed 81 mg PO DAILY 11/11/20 12/22/24 12/11/24 History release (Adult Low Dose Aspirin) atorvastatin 80 mg tablet 80 mg PO BEDTIME 11/11/20 12/22/24 03/08/22 History blood sugar diagnostic (FreeStyle #10 ea 11/11/20 12/22/24 Unknown History Lite Strips) glucose 4 gram chewable tablet 8 g PO Q15M PRN Hypoglycemia 11/11/20 12/22/24 Unknown History (Dex4 Glucose) carvedilol 6.25 mg tablet 6.25 mg PO BID 07/12/21 12/22/24 12/22/24 05:00 History gabapentin 300 mg capsule 300 mg PO DAILY 07/12/21 12/22/24 12/22/24 05:00 History lancets 28 gauge (TRUEplus Lancets) #100 ea 07/12/21 12/22/24 Unknown History pen needle, diabetic 32 gauge x #50 ea 07/12/21 12/22/24 Unknown History (Pentips Pen Needle) risperidone 3 mg tablet 3 mg PO BEDTIME 07/12/21 12/22/24 Unknown History acetaminophen 500 mg tablet 1,000 mg PO Q6H PRN pain 12/05/22 12/22/24 Unknown History cholecalciferol (vitamin D3) 50 50 mcg PO QAM 12/05/22 12/22/24 Unknown History mcg (2,000 unit) capsule tirzepatide 5 mg/0.5 mL 5 mg subcut QWEEK 12/29/22 12/22/24 12/11/24 History subcutaneous pen injector (Mounjaro) insulin glargine 100 unit/mL (3 34 unit subcut QPM 04/17/23 12/22/24 Unknown History mL) subcutaneous pen (Lantus Solostar U-100 Insulin) fluticasone propionate 110 2 puff inhalation BID 01/21/24 12/22/24 Unknown History mcg/actuation HFA aerosol inhaler tramadol 50 mg tablet 50 mg PO Q8H PRN severe pain 12/22/24 12/22/24 Unknown History Exam Pertinent Lab Results Pertinent Lab Results: Laboratory Tests 11/18/24 08:14 WBC 6.7 RBC 4.73 Hgb 13.0 L Hct 39.4 L Plt Count 193 Sodium 142 Potassium 3.8 BUN 15 Creatinine 1.38 Narrative Narrative: Cardiac Cath 07/2024 Exercise stress test with exercise 40 secs of Arpit Protocol, requesting to stop due to left leg and hip discomfort. Test switched to Pharmacologic stress test with Lexiscan. Pharamcological stress test with Lexiscan while pt walked on treadmill at 0.6mph, with reports of SOB and feeling fatigue, without any arrythmias, with normotensive response to injection. Nondiagnostuc EKG for ischemia. In recovery, pt feeling back to baseline. Nuclear images pending. Test reviewed with Dr. Miguel. EKG 12/2023 NSR, minimal criteria for LVH, nonspecific T wave abnormality Assessment and Plan Final Anesthetic Review Family History of Problems with Anesthesia: No History of Problems with Anesthesia: No Documented by User: Benito Garcia MD 12/22/24 09:54 HPI - Anesthesia Eval Consult details Narrative: 64 yr old male for penile prosthesis insertion H/O ND/CAD: last cardiology visit 07/2024, work load note clearing pt for surgery Type 2 DM: A1C 6.7%, on GLP-1, insulin On gabapentin GERD: on PPI Had positive Cardiolite stress test. Discussed at length w Dr. Ogden by phone. The pt has RCA occlusion w collaterals and is asymptomatic. He says risk is moderate. Spoke w pt at some length about his exerc [place] and his sx. Stair climbing and exerc are limited by hip pain. He doesn't get SOB or chest pain. [facility] Past Medical History Medical History Arthritis Asthma Peripheral arterial occlusive disease Hyperlipidemia IBS (irritable bowel syndrome) Benign prostatic hyperplasia without lower urinary tract symptoms GERD (gastroesophageal reflux disease) Chronic kidney disease Acute kidney failure Abdominal bloating Painful arc syndrome of right shoulder Chronic idiopathic constipation Tubular adenoma Myocardial infarct, old Diabetes PVD (peripheral vascular disease) CAD (coronary artery disease) Family history of prostate cancer Scrotal swelling Elevated PSA Family History Family History Maternal Grandmother Diabetes Paternal Grandmother Diabetes Brother Diabetes Mother No problems noted. 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 If so, by whom?: No Are you DNR?: No Advance Directives: No Advance Directives Information Provided: Yes Current occupational status: disabled Current occupation: right hand dominant Meds Allergies Allergy/AdvReac Type Severity Reaction Status Date / Time No Known Allergies Allergy Verified 12/22/24 06:19 Home Medications ?Medication ?Instructions ?Recorded ?Confirmed ?Last Taken ?Type albuterol sulfate 2.5 mg/0.5 mL 5 mg inhalation Q4H PRN Shortness 11/11/20 12/22/24 08/16/21 History solution for nebulization Of Breath Or Wheezing aspirin 81 mg tablet,delayed 81 mg PO DAILY 11/11/20 12/22/24 12/11/24 History release (Adult Low Dose Aspirin) atorvastatin 80 mg tablet 80 mg PO BEDTIME 11/11/20 12/22/24 03/08/22 History blood sugar diagnostic (FreeStyle #10 ea 11/11/20 12/22/24 Unknown History Lite Strips) glucose 4 gram chewable tablet 8 g PO Q15M PRN Hypoglycemia 11/11/20 12/22/24 Unknown History (Dex4 Glucose) carvedilol 6.25 mg tablet 6.25 mg PO BID 07/12/21 12/22/24 12/22/24 05:00 History gabapentin 300 mg capsule 300 mg PO DAILY 07/12/21 12/22/24 12/22/24 05:00 History lancets 28 gauge (TRUEplus Lancets) #100 ea 07/12/21 12/22/24 Unknown History pen needle, diabetic 32 gauge x #50 ea 07/12/21 12/22/24 Unknown History (Pentips Pen Needle) risperidone 3 mg tablet 3 mg PO BEDTIME 07/12/21 12/22/24 Unknown History acetaminophen 500 mg tablet 1,000 mg PO Q6H PRN pain 12/05/22 12/22/24 Unknown History cholecalciferol (vitamin D3) 50 50 mcg PO QAM 12/05/22 12/22/24 Unknown History mcg (2,000 unit) capsule tirzepatide 5 mg/0.5 mL 5 mg subcut QWEEK 12/29/22 12/22/24 12/11/24 History subcutaneous pen injector (Karla) insulin glargine 100 unit/mL (3 34 unit subcut QPM 04/17/23 12/22/24 Unknown History mL) subcutaneous pen (Lantus Solostar U-100 Insulin) fluticasone propionate 110 2 puff inhalation BID 01/21/24 12/22/24 Unknown History mcg/actuation HFA aerosol inhaler tramadol 50 mg tablet 50 mg PO Q8H PRN severe pain 12/22/24 12/22/24 Unknown History Exam Airway Mallampati Class: II TM Dist: <=3cm Neck ROM: Full Denture: Lower Heart: See above. Lungs: OK. Assessment and Plan Assessment Anesthesia Assessment: Anesthesia Plan Discussed and Chart Reviewed Final Anesthetic Review NPO: Yes ASA Class: IV Final Preanesthetic Review: No Changes in Pt Med Stat, Meds/Allgs Chart Reviewed, Consent Obtained/Reviewed and Anes Risks/Benef Reviewed Patient Risk: High Procedure Risk: Low Anesthetic Plan Anesthetic Plan: GA and Agree w/ Assess. and Plan Disposition: Standard PACU
[2024-12-22] VITALS (7 sets, daily range): BP systolic 102–130; BP diastolic 43–61; PULSE 59–68; RESP 16–17; TEMP 36.2–36.8; O2SAT 94–97; BMI 33.9
[2024-12-22] MEDS: Lactated Ringers 1,000 ML 100 ML IVCONT (06:46)
[2024-12-22 06:47] LABS: Glucose, Whole Blood 154 mg/dL (60-115)
--- NOTE | 2024-12-22 07:30 | P.OP_ITS ---
Operative Note Operative Note Date of Service: 12/22/24 Narrative: PreOperative Diagnosis: Erectile dysfunction Post Operative Diagnosis: Erectile dysfunction Procedure: Placement of inflatable penile prosthetic Surgeon: Dr Sachin Oswald Anesthesia: General Indications for procedure: Progressive erectile dysfunction in setting of diabetes Non responsive to oral or injectable medications. Maximum doses have been trialled. Has completed minimum of 6 weeks with penile vacuum pump in order to maximize potential placement. Is aware of the risks and benefits particularly related to mechanical failure, infection, loss of sensation. Procedure: After informed consent was verified the patient was brought to the operating room and placed in a supine position. Anesthesia was administered per protocol. The patient was shaved with clippers, and prepped with cholhexidine based solution. He was draped in a sterile fashion. Safety pause time-out performed. Since he is a diabetic he was given triple coverage with IV vancomycin, Pip-Tazo and fluconazole per modified guideline. 16 [place] Ravi catheter was placed on the field. Bladder was drained. [place] retractor with penile support was placed. Local anesthetic infiltrated vertically 1.5cm at the penoscrotal junction. Dorsal nerve block was placed inferior to the symphsis pubis in the midline and perineal/crural block was placed 1 fingerbreadth lateral to the midline angled at 45 degrees. The penis was placed in a cephalad position using the glans hook on the Dan[place]. A vertical scrotal incision was made at the penoscrotal junction and taken down to the tunica. Dissection was performed on the left side and then on the right side to fully expose the proximal tunica of the corporal bodies. Midline dissection was required to lift off the median attachments. At this point stay hooks were placed in a star shaped pattern. A double row of 3-0 Vicryl stay sutures were placed through the proximal corporal tunica with 1cm spacing and labeled and marked bilaterally. Colored vicryl was placed medial and plain vicryl lateral. Blue towels were used to isolate left from right. The same procedure was performed first on the left and then on the right side. The next step was an incision was made between the 2 rows of stay sutures through the tunica using a 15 Blade. This was approximately 2.5 cm in length. The left was completed and then the right side. Minimal bleeding was seen supporting the finding of developing corporal fibrosis. The stay hooks were removed from the [place]. The penile support was removed. Initial dilation through corporotomy was performed with Metzumbaum scissors. Hegar dilators were used in stepwise fashion increasing in size to dilate the corporal bodies in a proximal and distal fashion until it could accept a 13/12 Hegar dilator. Care was taken to reach the sacrum on the posterior dilation and the mid-glans position on the distal dilation. Dilation was performed on the left-hand side followed by the right-hand side. Once complete the 12 Hegar dilator was placed up the left distal corporal body and the 13 Hegar dilator placed up the right distal corporal body. Neither dilator touched each other demonstrating cross over had not occurred. After dilation each corporal body were washed with antibiotic normal saline. At this point the jessica measuring device was introduced. On the left side the proximal dilation measured at 10 cm and the distal dilation measured approximately 11 cm on the left. On the right side proximal corporal body measured 10 cm and posterior corporal bodey measured 11 cm respectively. Based on the considerations from dilatation and an assessment of the penile base girth a decision was made regarding penile prosthetic choice. Coloplast Titan 20cm plus 1cm rear tip extension. Prior to prosthetic preparation placement of the reservoir was performed. The 100cc concealed reservoir was chosen. Surgical gloves were changed at this point in the procedure prior to handling the prosthetic. The right inguinal canal was palpated and finger dissection plus the blue hook retractor were used to expose the floor of the canal and palpate the medial edge adjacent to the rectur abdominis tendon insertion. A Metzenbaum scissors were used to punch a small hole in the posterior wall of the medial aspect of the inguinal canal. This was enlarged with the tip of the index finger. The concealed reservoir was then placed through this hole into the preperitoneal, retro body wall space. This was filled with 100 cc injectable normal saline and minimal back pressure was noted. Shod clamps were placed. Preparation of the corporal cylinders and integrated pump were complete. Rear tip extenders had been attached. An introducer Ismael needle was used to thread the distal tip thread from left side corporal prosthetic. The threaded needle was loaded into the jessica device and placed through the corporal defect to the mid glans position. The needle was advanced out through the glans of the penis. The prosthetic was then placed into the corporal defect. The proximal portion, with attached rear tip slate roofer helper, was advanced and placed using the enclosed pusher device. Once the proximal portion was properly seated the distal component was introduced and brought out to the distal portion of the corpora by retracting the glans suture. A similar procedure was repeated on the right side. Tubing covering was stripped. The penis was elevated by grasping the distal glans sutures. The prosthetic was then inflated with approximately 80 cc of normal saline. No defects were seen. The prosthetic remained midline and the distal tips could be palpated in the mid penile gland indicating correct placement. The penile prosthetic was deflated. The parallel stay sutures were then secured in a horizontal fashion. The proximal pair of sutures were tied first. The proximal suture ends were tied in an air knot. The distal suture ends were lifted tightening the proximal knot onto tissue and closing the corporotomy. This was repeated with the second pair of distal sutures. The left side was completed first followed by the right. The scrotum was irrigated. Blunt dissection was performed to create a scrotal pocket. The pump was placed into the scrotal pocket and held using a clamp. The excess tubing from the pump and reservoir was isolated using rubber shod clamps. Excess tubing was cut with scissors leaving a 1 inch length. The tubing ends were spiritzed with saline. Compression fittings were placed and locked using the compression clamp. The penile prosthetic was then refilled to ensure proper function and adequate flow between the reservoir and the prosthetic. A 3-0 Vicryl was then used to secure tissue so the pump was kept in the dependent position using a purse string suture. Tissue was reapproximated with 3-0 Vicryl in a horizontal fashion. At least 2 layers were created Skin was closed using interrupted 4.0 chromic suture suture. Once the incision was dry a modified mummy / broccoli stalk dressing was applied. This consisted of a layer of chandra followed by Coban. Two-three pumps had been placed into the prosthetic so as to keep the prosthetic partially filled. A cap was left on the Ravi catheter to allow drainage for the next 48 hours. He tolerated the procedure well was extubated in operating room transferred in stable condition to the recovery area. Drains: Sixteen [place]ander Ravi catheter Pathology: None
--- NOTE | 2024-12-22 07:34 | MHC.SHP ---
Pre-Procedural Eval Section A - 24 Hr Update-Section A only Date of Service: 12/22/24 The patient is an INPATIENT: No Changes since office visit: No Cold of Flu in the past 2 weeks, No New Medical Problems, No Changes in Medication and No Patient answered all questions The patient has been examined within 24 hours of the surgical procedure. The History & Physical has been completed within 30 days and I have reviewed it.: Yes Section B - Complete if H&P > 30 days Chief Complaint: Erectile dysfunction due to diseases classified Details of Present Illness: Penile prosthesis in diabetic Relevant Family History (Specify if Yes): No Relevant Social History: None Present Medications: see Short Stay Collaborative assessment Medical History: Significant History History of Previous Operations: No relevant previous surgery Allergies: Allergies Allergy/AdvReac Type Severity Reaction Status Date / Time No Known Allergies Allergy Verified 12/22/24 06:19 Review of Systems Sugical H&P ROS: Negative: Constitution, Cardiovascular, Respiratory, Neurological, Psychiatric, Hem-Onc, Allergic/Immunologic, Gastrointestinal, Genitourinary, Musculoskeletal, Integumentary, Endocrine and Eyes/Ears/Nose/Throat Exam Surgical H&P Exam: Normal: HEENT, Normal: Heart, Normal: Lungs, Normal: Extremities, Normal: Abdomen, Normal: Skin and Normal: Neurological Plan Diagnosis/Plan: Unchanged I have reviewed the history and physical and performed a pertinent physical examination on my patient. No changes have occurred unless specified. Time Spent With Patient Time: Total time managing care of this patient today ____ minutes.
== END 2024-12-22 12:24 | disposition home or self-care (01) ==
PROVIDERS: PCP Internal Medicine; Visit Provider Urology
PROC: (CPT 54405; principal; 2024-12-22 07:30)
DX: E11.22 Type 2 diabetes mellitus with diabetic chronic kidney disease (principal); N18.9 Chronic kidney disease, unspecified; N52.1 Erectile dysfunction due to diseases classified elsewhere; N40.0 Benign prostatic hyperplasia without lower urinary tract symptoms; R97.20 Elevated prostate specific antigen [PSA]; N17.9 Acute kidney failure, unspecified; M19.90 Unspecified osteoarthritis, unspecified site; I77.9 Disorder of arteries and arterioles, unspecified; I25.10 Atherosclerotic heart disease of native coronary artery without angina pectoris; Z95.5 Presence of coronary angioplasty implant and graft; I25.2 Old myocardial infarction; E78.5 Hyperlipidemia, unspecified; J45.909 Unspecified asthma, uncomplicated; Z79.4 Long term (current) use of insulin; Z79.82 Long term (current) use of aspirin; Z79.85 Long-term (current) use of injectable non-insulin antidiabetic drugs; Z98.890 Other specified postprocedural states; Z87.891 Personal history of nicotine dependence
CPT/HCPCS: 54405; 82947; C1813; J0131; J0330; J0665; J1450; J1580; J2003; J2371; J2543; J2704; J2795; J3010; J3374

== ENCOUNTER → 2024-12-22 05:38 | Outpatient (BNV) | payer MEDICAID, SELFPAY | PROVIDERS: PCP Internal Medicine; Visit Provider Urology | DX: E11.69 Type 2 diabetes mellitus with other specified complication (principal); N52.1 Erectile dysfunction due to diseases classified elsewhere | CPT/HCPCS: 54405 ==

== ENCOUNTER 2024-12-24 09:12 | Outpatient (AMB) | payer MEDICAID, SELFPAY ==
--- NOTE | 2024-12-24 09:37 | MHC.OFFVIS ---
Vital Signs 12/24/24 09:38 Height 5 ft 4 in Weight 200 lb 9.93 oz BMI 34.4 BP 120/62 Blood Pressure Location Lt brachial Position Sitting Pulse 76 Intake Visit Reasons: 4m follow up Intake Note: 4 month follow-up with ekg hearts doing ok Winter Sports Manager Required: Yes Winter Sports Manager Services: Winter Sports Manager Present Winter Sports Manager Name: carla Dunaway Allergies No Known Allergies Allergy (Verified 12/22/24 06:19) Medication List - Last Reconciled 12/24/24 by Bassam Ogden MD acetaminophen 1,000 mg PO Q6H PRN albuterol sulfate 5 mg inhalation Q4H PRN aspirin (Adult Low Dose Aspirin) 81 mg PO DAILY atorvastatin 80 mg PO BEDTIME bisacodyl (Dulcolax (bisacodyl)) 20 mg (4 x 5 mg) PO ONCE 1 day bisacodyl 10 mg (2 x 5 mg) PO BEDTIME blood sugar diagnostic (FreeStyle Lite Strips) As directed carvedilol 6.25 mg PO BID cholecalciferol (vitamin D3) 50 mcg PO QAM docusate sodium (Colace) 100 mg PO BID 30 days famotidine (Pepcid) 20 mg PO BEDTIME fluticasone propionate 110 mcg/actuation 2 puffs inhalation BID gabapentin 300 mg PO DAILY glucose (Dex4 Glucose) 8 grams PO Q15M PRN insulin glargine (Lantus Solostar U-100 Insulin) 34 units subcut QPM lancets (TRUEplus Lancets) As directed oxycodone-acetaminophen 5-325 mg (Percocet) 1 tab PO Q6H PRN 14 days pantoprazole 20 mg PO QAM pen needle, diabetic (Pentips Pen Needle) As directed polyethylene glycol 3350 17 grams PO DAILY risperidone 3 mg PO BEDTIME sulfamethoxazole-trimethoprim 400-80 mg (Bactrim) 1 tab PO DAILY tirzepatide (Mounjaro) 5 mg subcut QWEEK tramadol 50 mg PO Q8H PRN HPI Comments Details: 64-year-old gentleman who is referred for preoperative cardiovascular risk assessment. He has background history of coronary artery disease with multiple stents placed while he was in [facility]. He had workup done at [facility] previously and in 2016 he underwent cardiac catheterization when he presented with chest pain. Cardiac catheterization showed 90% stenosis in 2nd diagonal branch, 60% OM2 stenosis and moderate diffuse disease in the right coronary artery with mild InStent restenoses in the mid RCA. There is also a 60% stenosis noticed in the right posterior descending artery. He was medically managed at that stage. His echocardiography at that time showed normal biventricular function. Subsequent to that in 2017 he had Lexiscan which showed no fixed or reversible perfusion defect. He has been experiencing diarrhea for months. He has developed dehydration due to that. He has no shortness of breath. He does get chest discomfort and recently had chest tightness for which he took nitroglycerin. He said symptoms were similar to his pre PCI chest discomfort. He underwent Lexiscan which showed fixed basal to mid inferior defect and t.i.d.. He was taken for diagnostic angiogram where we noticed occluded mid right coronary artery with sper-ng-npmmr collaterals and 50% 2nd diagonal stenosis. We decided to medically manage him. He was advised to proceed with endoscopy with intermediate risk. He returns and denies any chest discomfort shortness of breath. He had lower extremity bypass surgery before and is following with vascular surgery at [facility]. He wishes to see someone at [facility] and we will refer him. 06/03/2023: He returns for follow-up. He has been following with Dr. Whitney. He has seen Urology and was given a prescription for Cialis for erectile dysfunction. He also is on isosorbide mononitrate 60 mg daily. Denying any anginal symptoms. He was advised to stop the isosorbide mononitrate. 09/19/23: He is here for follow-up. He had diarrhea for couple of days and has been feeling weak and dizzy. He is saying diarrhea is getting better now. No fevers or chills. No blood in stool. Blood pressure is normal. 01/23/2024: He is here for follow-up. Feeling better. No chest pains or shortness of breath. Blood pressure is well controlled. He is taking aspirin, Plavix and cilostazol. He has peripheral vascular disease. I have explained to him that he should not be taking all 3 of his medications because of bleeding risk. He is undergoing right shoulder surgery and stopping Plavix. I have advised him not to resume Plavix after surgery and discontinue aspirin and cilostazol. 05/05/2024: On follow-up today, he is complaining of some left-sided chest tightness which happened at rest for 15 minutes few days ago. He has not had any further discomfort in the chest. Physically not active. He has known history of RCA HAM PASSER and moderate disease in the PDA in the past. He also had 60% OM2 and 90% diagonal stenosis which was a small-sized vessel. He had right shoulder surgery and has recovered from that. He was advised to stop the Plavix and he is taking aspirin and cilostazol at this point. 08/20/2024: He is here for follow-up. On last visit he complained of chest discomfort and underwent stress testing. He was able to exercise only for 40 seconds and stopped because of pain in his hips and knees. Lexiscan was done which showed inferior inferolateral perfusion defect. On follow-up he is denying any chest discomfort. He has not been exercising and I have advised him that as the weather is changing his should come more physically active. 12/24/2024: He is here for follow-up. He underwent urological procedure recently. He is in pain. Denying any chest pain or shortness of breath. Stood up from cardiovascular point of view. [facility] Medical History Arthritis Asthma Peripheral arterial occlusive disease Hyperlipidemia IBS (irritable bowel syndrome) Benign prostatic hyperplasia without lower urinary tract symptoms GERD (gastroesophageal reflux disease) Chronic kidney disease Acute kidney failure Abdominal bloating Painful arc syndrome of right shoulder Chronic idiopathic constipation Tubular adenoma Myocardial infarct, old Diabetes PVD (peripheral vascular disease) CAD (coronary artery disease) Family history of prostate cancer Scrotal swelling Elevated PSA Surgical History Hx of aorto-femoral bypass History of coronary artery stent placement Hx of coronary angioplasty Hx of ligation of vein History of esophagogastroduodenoscopy (EGD) Hx of colonoscopy Hx of arthroscopic knee surgery History of surgery History of vascular surgery History of cardiac cath Family History Maternal Grandmother Diabetes Paternal Grandmother Diabetes Brother Diabetes Mother No problems noted. 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) Alcohol intake: never Patient Tobacco Use Status: Former Tobacco user Tobacco use type: Cigarette Years Smoked: 35+ Current occupational status: disabled Current occupation: right hand dominant Review of Systems Const Denies chills, Denies fatigue, Denies fever(s), Denies frequent falls, Denies weakness, Denies weight gain and Denies weight loss ENT Denies dizziness Card Denies chest pain, Denies leg edema, Denies lightheadedness, Denies palpitations, Denies dyspnea, Denies dyspnea on exertion, Denies orthopnea and Denies other (loss of consciousness) Resp Denies cough, Denies dyspnea and Denies dyspnea on exertion GI Denies hematochezia and Denies change in stool character Musc Denies abnormal gait, Denies muscle weakness, Denies numbness, Denies radiating pain into limb and Denies tingling Neuro Denies abnormal gait, Denies dizziness, Denies frequent falls, Denies numbness, Denies tingling and Denies weakness Endo Denies fatigue and Denies palpitations Physical Exam Vital Signs: Last Vital Signs Pulse 76 12/24/24 09:38 BP 120/62 12/24/24 09:38 BMI result Body Mass Index 34.4 GENERAL APPEARANCE: in no acute distress, pleasant. Obese. NECK: no carotid bruit, no jugular venous distention. SKIN: no suspicious lesions, warm and dry. HEART: no murmurs, regular rate and rhythm. LUNGS: clear to auscultation bilaterally. ABDOMEN: soft, nontender. EXTREMITIES: no edema. PERIPHERAL PULSES: equal. NEUROLOGIC: No gross deficits, AAO X 3 Office Procedures EKG Details: Sinus rhythm 76/min, normal axis, normal ECG, QTC 465 milliseconds. [id number], Complete Assessment & Plan Assessment & Plan (1) CAD (coronary artery disease): Code(s): I25.10 - Atherosclerotic heart disease of [place] coronary artery without angina pectoris Category: Medical (2) Abnormal stress test: Code(s): R94.39 - Abnormal result of other cardiovascular function study Category: Medical Plan Very pleasant 64 year gentleman who is here for follow-up. He has known history of RCA HAM PASSER and severe diagonal stenosis. Looking at the angiogram he had multiple stents in the right coronary artery with a full metal jacket and mid RCA HAM PASSER was noted. He had good ofrh-yd-nmjyn collaterals at that time. Recent nuclear stress test is showing inferior and inferolateral perfusion defect which goes along with RCA HAM PASSER. He is denying any exertional symptoms on follow-up. He is taking aspirin currently. Clinically stable Thank you for allowing me to participate in the care of your patient. Please feel free to contact me if you have any questions. Coding Level of Care Code Est Pt Level 3 (91039) Diagnoses CAD (coronary artery disease) I25.10 Abnormal stress test R94.39 CPT Codes EKG - CPT: 60927-[id number], Complete ([id number])
[2024-12-24 09:38] VITALS: BP 120/62; PULSE 76; BMI 34.4
--- OUTSIDE RECORDS SUMMARY | 2024-12-24 09:41 | XMS_ITS | Encounter Summary ---
Author Organization [employer] Address [address] [place] [address] Care Team Providers Care Assistant Superintendent For Curriculum Name Role Phone Juan Miguel Tinajero MD Primary Care Provider [phone] Juan Cordova PharmD Unavailable Unavail able Reason for Visit * Reason Comments Med Refill Encounter Details Date Type Department Care Team ([facility] Contact Info) Description 12/07/2024 Refill [facility] [address] [place], [place] [phone] Juan Miguel Tinajero MD [address] [place] [address] Chronic pain syndrome; Sore throat; Bacterial conjunctivitis Social History Tobacco Use Types Packs/Day Years [...] Care Team (Late st Contact Info) Description 02/02/2025 9:30 AM EDT Telemedicine [facility] [address] [place] [address] Elsa Barnett RN [address] [place] [address] 02/17/2025 9:15 AM EDT Office Visit [facility] [address] [place] [address] Juan Miguel Tinajero MD [address] [place] [address] documented as of this encounter Goals Goal Patient Goal Type Associated Problems Recent Progress Patient-Stated? Author Blood Pressure < 140/90 Blood Pressure 150/80(2024 1:01 PM EDT) No DellogonoJuan, PharmD Hemoglobin A1c < 7 Result Component 6.7( 7:08 AM EDT) No DellogonoJuan, PharmD documented as of this encounter Visit Diagnoses Diagnosis Chronic pain syndrome Sore throat Acute pharyngitis Bacterial conjunctivitis Other mucopurulent conjunctivitis documented in this encounter Additional Health Concerns Assessment Noted Time PHQ-9 Depression Total Score: 0 10/30/19 24 10:10 AM EDT documented as of this encounter Care Teams Assistant Superintendent For Curriculum Relationship Specialty Start Date End Date Juan Miguel Tinajero MD [address] [place] [address] PCP - General Internal Medicine 05/28/18 Juan Cordova PharmD [address] [place] [address] Pharmacist Internal Medicine 07/14/22 Yvonne Knox Lining InserterCellar Packer 02/15/23 Yvonne Knox Lining InserterCellar Packer 04/09/24 documented as of this encounter
--- OUTSIDE RECORDS SUMMARY | 2024-12-24 09:41 | XMS_ITS | Clinical Summary ---
Author Organization [facility] ity Address [address] [place] [address] Care Team Providers Care Live In Housekeeper Name Role Phone Unavailable Primary Care Provider [...] Vaccine ( - 2023-2 5 season) 2024 Depression Screening 05/28/2024 Influenza Vaccine (#1) 2025 RSV Immunization Adult Patie nts (1 [...]
--- OUTSIDE RECORDS SUMMARY | 2024-12-24 09:42 | XMS_ITS | Clinical Summary ---
Author Organization [facility] Address [address] [place] [address] Phone Care Team Providers Care Consulting Services Manager Name Role Phone Juan Miguel Tinajero MD Primary Care Provider [phone] Allergies No known active allergies Medications Acetaminophen [...] under the skin Once a week Active cholecalciferol (VITAMIN D-3) 50 MCG (1999 UT) capsule TAKE ONE CAPSULE EVERY MORNING 90 capsule 3 4 Active carvedilol (COREG) 12.5 MG tablet Take 1 tablet (12.5 mg total) by mouth in the morning and 1 tablet (12.5 mg total) in the evening. Take with meals. 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 F/U [...] Encounters Date Type Department Care Team Description 10/02/2024 9:40 AM EDT Office Visit [facility] [address] [phone] Aj Grajeda MD Stage 3a chronic kidney disease (HCC) (Primary Dx); Peripheral arterial occlusive disease (HCC); Nephrolithiasis; Multi vessel coronary artery disease; correction current use of opiate analgesic; Hypertensive disorder; Diabetes mellitus, not otherwise specified (HCC); Cyst of kidney; Other acute kidney failure (HCC) 09/29/2024 Orders Only [facility] [address] [address] Aj Grajeda MD Stage 3a chronic kidney disease (HCC); Other acute kidney failure (HCC); Nephrolithiasis; Peripheral arterial occlusive disease (HCC); Hypertensive disorder 09/25/2024 Documentation Only [facility] [address] [address] Aj Grajeda MD from Last 3 Months [...] Cigarettes Q uit: 2014 Smokeless Tobacco: Never Tobacco Cessation:Counseling Given: Not [...] Sign Reading Time Taken Comments Blood Pressure 140/72 10/02/2024 9:13 AM EDT Pulse 71 10/02/2024 9:13 AM EDT Temperature - - Respiratory Rate - - Oxygen Saturation 98% 10/02/2024 9:13 AM EDT Inhaled Oxygen Concentration - - Weight 89.9 kg (198 lb 3.2 oz) 10/02/2024 9:13 A M EDT Height 162.6 cm (5' 4 ) 04/01/2024 7:54 AM EST Body Mass Index 34.02 04/01/2024 7:54 AM EST Plan of Treatment Upcoming Encounters Date Type Department Care Team (Late st Contact Info) Description 10/05/2025 8:00 AM EDT Office Visit [facility] [address] [address] Aj Grajeda MD [address] [phone] Health Maintenance Due Date Last Done Comments Colorectal Cancer Screening: Annual FOBT 2009 Colorectal Cancer Screening: Colonoscopy 2009 Colorectal Cancer Screening: Sigmoidoscopy 2009 Diabetes: Ophthalmology Exam 03/28/2023 Diabetes: Pedal Pulse Checked 03/28/2023 Diabetes: Sensory Foot Exam 03/28/2023 Diabetes: Visual Foot Exam 03/28/2023 Diabetes: Hemoglobin A1C 12/23/2024 025, 05/14/2024, 11/01/2023, Additional history exists Influenza Vaccine (#1) 2025 4, 03/13/2023, 02/22/2022, Additional history exists Pneumococcal Vaccine: 50+ Years Completed 07/31/2023, 12/10/2015 Pneumococcal Vaccine: Peds (0 to 5 Years) and At-Risk Patients (6 to 49 Years) Discontinued 07/31/2023, 12/10/2015 Hepatitis B Vaccine Aged Out 05/23/2024, 08/21/2022, [...] AM EDT) Hemoglobin A1C 6.6(H) (4.0-5.6) % [facility] Comment: MONITORING: In known diabetic patients, hemoglobin A1c targets should be discussed with health care provider. DIAGNOSTIC USE: The [place] Diabetes Association (ADA) and the World Health [...] Supplement 1 Testing performed or reported by [facility], a Service of [facility], [address] [place] [id number] Zachary Sanders MD, Phlebotomy Services Representative [facility]# [id number] Blood specimen (specimen) Venous blood / Unknown 03/21/2023 8:20 AM EDT 03/21/2023 8:25 AM EDT us Aj Grajeda MD LAB BLOOD ORDERABLES Final Re sult [facility] from Last 3 Months or Most Recently Relevant to Health Maintenance Insurance Medicaid OR Medicaid OR Care Teams Consulting Services Manager Relationship Specialty Start Date End Date Juan Miguel Tinajero MD [address] [place] [address] PCP - General Internal Medicine 02/11/21
== END 2024-12-24 10:10 | disposition home or self-care (01) ==
LOC: HO.HCS 09:13
PROVIDERS: PCP Internal Medicine; Visit Provider Internal Medicine Cardiovascular Disease
DX: I25.10 Atherosclerotic heart disease of native coronary artery without angina pectoris (principal); R94.39 Abnormal result of other cardiovascular function study
CPT/HCPCS: 99213

== ENCOUNTER → 2024-12-24 09:12 | Outpatient (BNVA) | payer MEDICAID, SELFPAY | PROVIDERS: PCP Internal Medicine; Visit Provider Internal Medicine Cardiovascular Disease | DX: Z01.810 Encounter for preprocedural cardiovascular examination (principal); I25.10 Atherosclerotic heart disease of native coronary artery without angina pectoris; R94.39 Abnormal result of other cardiovascular function study | CPT/HCPCS: 93005; 99212 ==

== ENCOUNTER 2024-12-29 17:43 | Outpatient (BNV) | payer MEDICAID, SELFPAY | END 2025-01-02 13:56 | PROVIDERS: Admitting Provider Urology; PCP Student in an Organized Health Care Education/Training Program; Visit Provider Radiology Diagnostic Radiology | DX: N48.21 Abscess of corpus cavernosum and penis (principal) | CPT/HCPCS: 72197 ==

== ENCOUNTER 2024-12-29 17:43 | Inpatient (IN) | payer MEDICAID, SELFPAY ==
--- NOTE | ~2024-12-29 | XR_ITS ---
CLINICAL HISTORY: SOB at rest Chest X-ray, 1 View COMPARISON: CR/AL/SR - XR RIBS 3 VIEWS MINIMUM WITH CHEST LEFT - 07/12/23 17:03 EST FINDINGS: No consolidation. Mild bilateral lower lung atelectasis. Calcified right lower lung granuloma. No pleural effusion. No pneumothorax. No cardiomegaly. No acute fracture. IMPRESSION: No acute findings. This document has been electronically signed by: Isiah Flaherty MD on 12/29/2024 21:28:29
--- NOTE | ~2024-12-29 | MR_ITS ---
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 The reservoir is in the right lower quadrant and is partially imaged. There is a large amount of edema and enhancement within the penis and in the adjacent soft tissues including the scrotum consistent with the given history of infection. No low signal foci to indicate air. At the base of the penis there is a rim enhancing fluid collection which extends into scrotum to the right of midline measuring 2.7 x 2.8 x 5.6 cm indicating an abscess which is seen around the adjacent prosthesis (see series 3 images 18 through 22 and series 9 images 57 through 75). There are bilateral epididymal cysts measuring 1.2 and 0.7 cm on the right and 1.8 cm on the left. Cysts are also present within the left testis measuring 2.9 and 2.3 cm. There is a low signal lesion between the cysts within the left testis measuring 0.8 cm which could be a calcification. There are small bilateral hydroceles, greater on the left. Dependent low signal lesion within the left scrotum measuring 0.4 cm could be a calcification/scrotolith. There is a mild amount of edema within adductor musculature bilaterally indicating myositis with a trace amount of fluid along the fascial planes, reactive. There is edema in the subcutaneous fat. Ravi catheter within the bladder. Impression: Infected penile prosthesis. Abscess at the base of the penis extending into scrotum measuring 5.6 cm. Other findings detailed above. Scrotal ultrasound may be helpful. This document has been electronically signed by: Gisselle Seymour MD on 01/02/2025 20:11:44
[2024-12-29 17:55] VITALS: BMI 36.5
--- OUTSIDE RECORDS SUMMARY | 2024-12-29 17:56 | XMS_ITS | Clinical Summary ---
Author Organization 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 [...] Office Visit [facility] 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 [address] [address] Aj Grajeda MD [address] [address] Health Maintenance Due Date Last Done Comments [...] AM EDT) Hemoglobin A1C 6.6(H) (4.0-5.6) % [facility] Comment: MONITORING: In known diabetic patients, hemoglobin A1c targets should be discussed with health care provider. DIAGNOSTIC USE: The [place] Diabetes Association (ADA) and the World Health [...] Supplement 1 Testing performed or reported by [facility], a Service of [facility], [address] [place] [address] Zachary Sanders MD, Green Prize Packer [facility]# [id number] Blood specimen (specimen) Venous blood / Unknown 03/21/2023 8:20 AM EDT 03/21/2023 8:25 AM EDT Aj Grajeda MD LAB BLOOD ORDERABLES Final Re sult [facility] from Last 3 Months or Most Recently Relevant to Health Maintenance Insurance Medicaid [place] Medicaid [place] Care Teams Door Trimmer Relationship Specialty Start Date End Date Juan Miguel Tinajero MD [address] [place] [id number] PCP - General Internal Medicine 02/11/21
--- OUTSIDE RECORDS SUMMARY | 2024-12-29 17:56 | XMS_ITS | Clinical Summary ---
Author Organization [facility] ity Address [address] [place] [address] Care Team Providers Care Crane Hoist Or Lift Operator Name Role Phone Unavailable Primary Care Provider [...]
[2024-12-29 18:00] VITALS: BP 161/78; PULSE 70; RESP 16; TEMP 36.9; O2SAT 93
--- NOTE | 2024-12-29 18:57 | P.CONHOSP_ITS ---
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 Oswald, asthma, esophageal constriction with history of dilatation is being seen per request of urologist for medical management. Patient was transferred from [facility] to [facility] for suspicion for infected penile implant. Patient was seen by Dr. Oswald and in fact does not have an infection of the penile implant but a UTI with evidence of sepsis initially. Patient was started on vancomycin and Zosyn for urology and is feeling better overall since transfer. Other than hypertension patient's vital signs are stable. Patient has no leukocytosis, with possible mild CYN/CKD as patient does follow with a general foundry worker yearly but could not state that he has chronic kidney disease for HPI. Patient has good insight as to why he was transferred from [facility] to [facility] and understands that he does have a urinary tract infection with initial symptoms of sepsis. Cultures were completed at [facility] and we will need to be followed via [facility] records. This is per Urology. Currently patient denies any acute medical concerns. Patient has been started on his Lantus insulin appropriately. Patient denies any symptoms related to GERD or reflux. Patient denies any current chest pain, shortness of breath at rest, nausea, vomiting or abdominal pain. Patient does have chronic intermittent diarrhea/IBS and follows with GI here at [facility]. Patient did have a previous stress test and was supposed to have a repeat colonoscopy but has not yet heard from the GI clinic regarding scheduling. There is no evidence of acute GI bleed or acute GI symptoms. Moon is currently functioning properly draining yellow urine with no sediment or cloudiness. Patient does have some mild scrotal edema with evidence of healing status post a penile implant done late November. Management for this as per Urology. Review of Systems 2 Review of Systems: Patient denies any chest pain, shortness of breath at rest, abdominal pain, nausea or vomiting. Patient is having his usual chronic intermittent loose stool. Patient denies any headaches, visual changes or difficulty swallowing. Patient denies any lower leg calf pain. Patient states minimal pain in the scrotal area. Patient is comfortable with Moon placement at this time. Yes all other systems are reviewed and are negative [facility] Medical History Arthritis Asthma Peripheral arterial occlusive disease Hyperlipidemia IBS (irritable bowel syndrome) Benign prostatic hyperplasia without lower urinary tract symptoms GERD (gastroesophageal reflux disease) Chronic kidney disease Acute kidney failure Abdominal bloating Painful arc syndrome of right shoulder Chronic idiopathic constipation Tubular adenoma Myocardial infarct, old Diabetes PVD (peripheral vascular disease) CAD (coronary artery disease) Family history of prostate cancer Scrotal swelling Elevated PSA Cognitive capacity: Alert and orientated x3 Functional capacity: independent ambulation Family History Maternal Grandmother Diabetes Paternal Grandmother Diabetes Brother Diabetes Mother No problems noted. Father Diabetes Surgical History Hx of aorto-femoral bypass History of coronary artery stent placement Hx of coronary angioplasty Hx of ligation of vein History of esophagogastroduodenoscopy (EGD) Hx of colonoscopy Hx of arthroscopic knee surgery History of surgery History of vascular surgery History of cardiac cath Social History Household Members: Family Housing: Apartment Do you presently have visiting nurse or other home services: No Alcohol intake: never Patient Tobacco Use Status: Former Tobacco user Tobacco use type: Cigarette Years Smoked: 35+ Do you feel safe in your current relationship?: Yes Advance Directives: No Advance Directives Information Provided: Yes Advance Directives on File: No Do you have a plan to hurt others: No Plan Current occupational status: disabled Current occupation: right hand dominant Ebola Risk: Travel/Contact With Anyone From Affected Area/s: No Has Patient Experienced Ebola Symptoms: No Meds Allergies Allergy/AdvReac Type Severity Reaction Status Date / Time No Known Allergies Allergy Verified 12/22/24 06:19 Active Medications: Current Medications Acetaminophen (Acetaminophen 325 Mg Tablet) 650 mg PO Q6H PRN PRN Reason: Pain, Mild 1-3,fever,headache Amlodipine Besylate (Amlodipine Besylate 5 Mg Tablet) 5 mg PO DAILY [facility]; Protocol Aspirin (Aspirin Enteric Coated 81 Mg Tablet.Dr) 81 mg PO DAILY [facility] Atorvastatin Calcium (Atorvastatin Calcium 80 Mg Tablet) 80 mg PO BEDTIME [facility] Calcium Carbonate (Calcium Carbonate 750 Mg Tab.Chew) 750 mg PO Q4H PRN PRN Reason: Heartburn Carvedilol (Carvedilol 6.25 Mg Tablet) 6.25 mg PO BID [facility]; Protocol Vancomycin HCl 1,000 mg/ (Sodium Chloride) 270 mls @ 270 mls/hr IV Q24H [facility] Piperacillin Sod/Tazobactam (Sod 3.375 gm/ Sodium Chloride) 50 mls @ 100 mls/hr IV Q8H [facility] Insulin Glargine (Insulin Glargine,Hum.Rec.Anlog 100 Unit/Ml 10 Ml Vial) 34 unit SUBCUT DAILY [facility] Magnesium Hydroxide (Milk Of Magnesia 30 Ml Oral.Susp) 30 ml PO DAILY PRN PRN Reason: Constipation Melatonin (Melatonin 3 Mg Tablet) 6 mg PO BEDTIME PRN PRN Reason: Insomnia Pharmacy Consult (Consult Rx Vancomycin Dosing) 1 each MISCELLANE DAILY PRN PRN Reason: Consult order Sodium Chloride (0.9 % Sodium Chloride Flush 3 Ml Syringe) 3 ml IVFLUSH QSHIFT [facility] Home Medications ?Medication ?Instructions ?Recorded ?Confirmed ?Last Taken ?Type albuterol sulfate 2.5 mg/0.5 mL 5 mg inhalation Q4H [facility] N Shortness 11/11/20 12/24/24 08/16/21 History solution for nebulization Of Breath Or Wheezing aspirin 81 mg tablet,delayed 81 mg PO DAILY 11/11/20 0 12/24/24 12/11/24 History release (Adult Low Dose Aspirin) atorvastatin 80 mg tablet 80 mg PO BEDTIME 11/11/2003/08/22 History blood sugar diagnostic (FreeStyle #10 ea 11/11/2011/27 Unknown History Lite Strips) glucose 4 gram chewable tablet 8 g PO Q15M PRN Hypogly cemia 11/11/20 12/24/24 Unknown History (Dex4 Glucose) gabapentin 300 mg capsule 300 mg PO DAILY 07/12/2112/22/24 05:00 History lancets 28 gauge (TRUEplus Lancets) #100 ea 07/12/21 0 12/24/24 Unknown History pen needle, diabetic 32 gauge x #50 ea 07/12/21 Unknown History (Pentips Pen Needle) risperidone 3 mg tablet 3 mg PO BEDTIME 07/12/21 Unknown History cholecalciferol (vitamin D3) 50 50 mcg PO QAM 12/05/22 12/24/24 Unknown History mcg (2,000 unit) capsule tirzepatide 5 mg/0.5 mL 5 mg subcut QWEEK 12/29/22 0 12/24/24 12/11/24 History subcutaneous pen injector (Mounjaro) fluticasone propionate 110 2 puff inhalation BID 01/2012/24/24 Unknown History mcg/actuation HFA aerosol inhaler tramadol 50 mg tablet 50 mg PO Q8H PRN severe pain 12/22/24 12/24/24 Unknown History acetaminophen 650 mg 1,300 mg PO Q8H PRN pain 09/19 Unknown History tablet,extended release amlodipine 10 mg tablet 10 mg PO QAM 12/29/24 Unkno wn History carvedilol 12.5 mg tablet 12.5 mg PO BID 12/29/24 Unk nown History cilostazol 100 mg tablet 100 mg PO BID 12/29/24 Unkn own History gabapentin 300 mg capsule 600 mg PO BEDTIME 12/29/24 Unknown History insulin glargine 100 unit/mL (3 35 unit subcut BEDTIME 12/29/24 Unknown History mL) subcutaneous pen (Lantus Solostar U-100 Insulin) lidocaine 5 % topical patch 1 patch topical DAILY PRN Pain 12/29/24 Unknown History Physical Exam 2 Vital Signs and Narrative: Vital Signs: Last Vital Signs Temp 98.4 F 12/29/24 18:00 Pulse 70 12/29/24 18:00 Resp 16 12/29/24 18:00 BP 161/78 H 12/29/24 18:00 Pulse Ox 93 12/29/24 18:00 O2 Del Method Nasal Cannula 12/29/24 18:00 O2 Flow Rate 3 12/29/24 18:00 BMI result Body Mass Index 36.5 Alert and orientated X3, able to give good history using sign language interpreter Neuro: CN II-X11 intact, no deficits, visual acuity intact EYES: PERRLA, EOM intact, sclerae nonicteric, conjunctiva pink ENT: hearing intact, no issues with swallowing, uvula midline, lips moist, nares patent no epistaxis, head normocephalic atraumatic Cardiac: S1 S2 RRR, no murmur, no JVD, no edema in Lower ext Pulmonary: lungs clear to auscultation B Abdominal: BS active in all 4 quadrants, no guarding, tenderness, rebounding, obesity MSK: strength 5/5 upper and lower extremities : no CVA tenderness, mild scrotal edema with healing incision that has no drainage or redness, Moon patent no evidence of hematuria Extremities: no edema in lower extremities, PT and DP pulses palpable +2 Psych: mood stable, judgement and insight good Skin: Intact, swelling noted in the scrotal area Results Labs 12/29/24 19:26 ECG Prior ECG tracings: not available for review Assessment and Plan (1) Sepsis: Qualifiers: Sepsis acute organ dysfunction status: unspecified Sepsis type: sepsis due to unspecified organism Qualified Code(s): A41.9 - Sepsis, unspecified organism Status: Acute Plan Patient is a 64-year-old male Beninese-speaking only with past medical history insulin-dependent diabetes on Mounjaro, diabetic neuropathy, IBS, hypertension, hyperlipidemia, osteoarthritis, CAD with history of PCI and 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 Oswald, asthma, esophageal constriction with history of dilatation is being seen per request of urologist for medical management after trnansfer from [facility] for urosepsis. Per urology, infection not related to penile implant. Sepsis secondary to UTI, moon placement Continue vanco and Zosyn as ordered per Urology Follow blood/ urine cultures done at [facility], may need to request records Plan for Moon discontinuation per Urology Mild CYN, hx of CKD IV fluids ordered Monitor BMP Avoid hypotension and nephrotoxic medications Patient can follow with Nephrology as an outpatient Consider nephrology consultation if renal function worsens Recent penile prosthesis Plan per Urology Noted scrotal edema but incision appears stable without evidence of infection Asthma, SOB with exertion Duo nebs p.r.n. Continue fluticasone Checking BNP in the a.m., if increased further workup may be indicated Incentive spirometry ordered Budesonide ordered b.i.d. Chest x-ray pending Wean O2 as tolerated, pt does not use O2 at home IDDM continue Lantus as ordered SSI AC HS DIabetic diet Last A1c August 2024 6.7 Patient has been on Mounjaro and but this medication has been held for about a month per Urology Patient will need to clear resumption of Mounjaro with his PCP and/or llama farmer status post discharge Diabetic neuropathy Patient normally on gabapentin 300 daily and 600 mg at bedtime Can continue medication if renal function improves in the a.m. 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 HLD Continue atorvastatin and aspirin GERD/esophageal stricture history Continue pantoprazole or equivalent Insomnia Continue risperidone at HS DVT prophylaxis: Lovenox as creatinine clearance is 55.4 Full code status Hospitalist group will continue to follow regarding labs and chest x-ray and overall medical management in anticipation of discharge in the near future. We appreciate this consultation.
[2024-12-29 19:15] VITALS: BP 163/83; PULSE 74; RESP 18; TEMP 36.9; O2SAT 95
--- NOTE | 2024-12-29 19:21 | PC.NURSE ---
Pt arrived to unit via EMS [place] [facility] Telephone report taken prior to arrival from [facility]. Pt A/Ox4. Orders by Dr Perea and Dr Perea at bedside to evaluate pt. Admission assessment completed by Og lovelace RN. Family at bedside. Breonna rico.
[2024-12-29] MEDS: 0.9 % Sodium Chloride Flush 3 ML SYRINGE IVFLUSH (19:25)
[2024-12-29 19:51] LABS: Creatinine Clr Calc Pharmacy 55.4; Estimated Glomerular Filt Rate 51
[2024-12-29] MEDS: vancomycin/NS 2,000 MG/500 ML PLAST..BAG 250 MG IV (20:04)
--- NOTE | 2024-12-29 20:14 | PHA.PROG ---
Admission Date/Time: December 29, 2024 17:43 Indication: Bacteremia Weight in k.5 kg Serum Creatinine - Last 168 Hours 12/29/24 19:26 Creatinine 1.41 H Estimated CrCl and GFR - Last 168 Hours 12/29/24 19:26 Estim Creat Clear Calc 55.4 Estimated GFR 51 Vancomycin Loading Dose: 2,000mg Current Vancomycin Dosing Regimen: 1500mg q24h Vancomycin Monitoring using AUC goal of 400 - 600 range with trough as surrogate marker: AUC 505, predicted trough 15 Date and Time for next Vancomycin Level to be drawn: 12/31 @ 1800 Pharmacist Comments on Vancomycin Plan: Vancomycin dosing will take advantage of [employer] as a clinical decision support tool that uses Bayesian modeling to calculate individual patient's pharmacokinetic parameters and forecast the patient's drug concentration time course with the target goal AUC 24 range of 400 - 600 mg/L/hr.
[2024-12-29 20:52] LABS: Glucose, Whole Blood 151 mg/dL (60-115)
--- NOTE | 2024-12-29 21:08 | PHA.MEDREC ---
Addendum entered by Marisel Rushing RPh 12/29/24 21:25: Reviewed by [facility] Original Note: Pharmacy Consult ? Medication Reconciliation Pharmacy has completed the medication reconciliation. Spoke to patient family Rayne to confirm med list. Rayne states patient is no longer taking Albuterol Sulfate 2.5 mg for nebulizer, Vitamin D3 50 mcg, Docusate sodium 100 mg, Mirilax. Rayne confirmed Lantus 35 units at bedtime, mounjaro 5 mg every . Patient was just [place] [facility] [place] [facility] today. Utilized claims and discharge packet to confirm med list.
[2024-12-29 21:23] LABS: Appearance Urine Clear; Glucose Urine UA Negative (Negative); PH 5.5 (5.0-9.0); Specific Gravity - Urine 1.010 (1.005-1.025); UMIC TRIGGER UA YES
[2024-12-29 21:40] VITALS: BP 140/67; PULSE 63
[2024-12-30] VITALS (7 sets, daily range): BP systolic 140–172; BP diastolic 65–75; PULSE 66–76; RESP 16–20; TEMP 36.3–37.2; O2SAT 92–94
[2024-12-30 06:24] LABS: MANUAL DIFF FLAG NO
[2024-12-30 06:50] LABS: Hematocrit 27.8 % (42.0-52.0); Hemoglobin 9.4 g/dl (14.0-18.0); Imm Gran Abs Auto 0.02 X10*3/uL (0.00-0.03); Imm Gran Pct Auto 0.4 % (0.0-0.4); Lymphocytes Absolute Auto 0.8 X10*3/uL (1.2-4.9); Mean Corpuscular HGB Conc 33.8 g/dl (31.0-36.0); Mean Corpuscular Hemoglobin 27.6 pg (27.0-33.0); Mean Corpuscular Volume 81.5 fL (80.0-98.0); NRBC Abs Auto 0.000 X10*3/uL (0.0-0.012); NRBC Pct Auto 0.0 /100WBC (0.0-0.2); Platelet Count 230 X10*3/uL (160-400); Red Blood Count 3.41 X10*6/uL (4.60-5.80); White Blood Count 5.7 X10*3/uL (4.8-10.8)
[2024-12-30 06:55] LABS: Anion Gap 12 (12-20); Blood Urea Nitrogen 25 mg/dL (9-16); Calcium 7.8 mg/dL (8.4-10.2); Carbon Dioxide 24 mmol/L (22-29); Chloride 109 mmol/L (96-108); Creatinine Clr Calc Pharmacy 57.5; Estimated Glomerular Filt Rate 53; Potassium 3.8 mmol/L (3.3-5.1); Sodium 141 mmol/L (135-145)
[2024-12-30 06:57] LABS: Creatinine Clr Calc Pharmacy 54.7; Estimated Glomerular Filt Rate 50
--- NOTE | 2024-12-30 07:00 | CA_ITS ---
Transthoracic Echocardiogram Patient (Last, First, Middle): Osvaldo Ding, Gender: Male Date of : 1960 Age: 64 Procedure Date: 12/30/2024 Procedure Type: Transthoracic Echocardiogram Location: E Height: 162.56 cm Weight: 96.16 kg BSA: 2.01 m2 Heart Rate: bpm BP: 140 / 65 mmHg Upward Bound Director: TO Referring MD: Sachin Oswald MD Symptoms: Bilateral pulmonary edema in setting of cardiac Study Quality: Fair/Contrast ECG Rhythm: Sinus Conclusions: - The left ventricular systolic function is normal. The calculated ejection fraction is 67% by biplane method. - No obvious valvular pathology seen on this study. - There is a small loculated pericardial effusion overlying the left ventricle. Findings Procedure Information Contrast agent, definity, is being given per protocol without apparent complications. Left Ventricle Normal left ventricular cavity size. The left ventricular systolic function is normal. The calculated ejection fraction is 67% by biplane method. There is no evidence of regional wall motion abnormalities. Diastolic function is indeterminate on the basis of available data. Right Ventricle Normal right ventricular cavity size. There is low normal right ventricular systolic function. Atria Both atria are normal in size. Aortic Valve There is a normal trileaflet aortic valve. There is no aortic valve stenosis. There is no aortic valve regurgitation. Mitral Valve The mitral valve appears normal. There is trace mitral valve regurgitation. There is no mitral valve stenosis. Pulmonic Valve The pulmonic valve is likely normal. Tricuspid Valve There is trace tricuspid valve regurgitation. There is no evidence of pulmonary hypertension. Great Vessels The asc aorta is normal in size. Small plaque is seen in the sino tubular ridge. Venous The inferior vena cava is normal in size and collapses greater than 50% with inspiration. Pericardium/Pleural There is a small loculated pericardial effusion overlying the left ventricle. Prior Study Comparison No prior study available for comparison. Recommendations, Care & Conclusions No obvious valvular pathology seen on this study. Measurements 2D Linear Measurements IVSd: 0.85 0.6-0.9/0.6-1.0 cm LVIDd: 5.13 3.9-5.3/4.2-5.9 cm LVIDd Index: 2.55 2.4-3.2/2.2-3.1 cm/m2 LVIDs: 3.27 2.0-3.6 cm LVPWd: 0.74 0.7-1.1 cm LV Mass: 175.06 67-162/88-224 g LV Mass Index: 87.09 43-95/49-115 g/m2 LVOT Diam: 2.10 3.0+(-)1.3 cm 2D Systolic Function EF 4C: 67.50 >55% EF 2C: 65.40 >55% EF BiP: 66.90 >55% Mitral Valve MV Pk E: 1.52 MV PK A: 0.47 MV Decel Time: 182.00 E/A: 3.20 E'Lateral: 6.74 E'Medial: 6.20 E/E' Med: 24.50 E/E' Lat: 22.60 PHT: 53.00 MVA PHT: 4.15 Decel Norman: 8.33 Aortic Valve AoV Pk Sergio: 1.42 AoV Mn Sergio: 0.98 AoV VTI: 0.30 AoV Pk Grad: 8.00 Aov Mn Grad: 4.00 TEJAL Cont.VTI: 2.56 LVOT LVOT Pk Sergio: 1.01 LVOT Mn Sergio: 0.72 LVOT VTI: 0.22 LVOT Pk Grad: 4.00 LVOT Mn Grad: 2.00 LVOT Diam: 2.10 LVOT Area: 3.46 Diastolic Function MV Pk E: 1.52 MV Pk A: 0.47 E/A: 3.20 E'Medial: 6.20 E/E' Med: 24.50 E' Laterial: 6.74 E/E' Lat: 22.60 Right Ventricle TAPSE (mm): 18.00 TVS' Sergio: 9.96 Tricuspid Valve RA Press: 8.00 Great Vessels Aorta Sinus of Valsalva: 3.10 2.0-3.5 cm Ao Asc: 3.30 2.1-3.4 cm Updated in Other Vendor System with Status of Final William Miguel MD electronically signed on 12/30/2024 3:59:15 PM with status of Final
[2024-12-30 07:01] LABS: B Type Natriuretic Peptide 307 pg/mL (<100)
[2024-12-30 07:19] LABS: Glucose, Whole Blood 151 mg/dL (60-115)
[2024-12-30] MEDS: Aspirin Enteric Coated 81 MG TABLET.DR PO (07:44)
[2024-12-30] MEDS: Insulin Glargine,Hum.rec.anlog 100 UNIT/ML 10 ML VIAL 34 UNIT SUBCUT (07:45)
[2024-12-30] MEDS: Fluticasone Propionate 100 MCG BLST.W.DEV 2 PUFF INHALE ×2 (08:28→19:29)
--- NOTE | 2024-12-30 10:37 | MHC.CM.PN ---
pt lives alone has 84 hrs of [employer] services every 2 weeks has own ride home dc plan home
--- NOTE | 2024-12-30 10:46 | P.PNIM_ITS ---
Subjective Subjective Date of Service: 12/30/24 Interval History: Patient was seen and examined, Moon catheter is draining clear yellow urine. He denies any shortness of breath or chest pain. Has been afebrile. Reports significant pain in his penis and scrotum relieved with morphne. Review of Systems Denies any shortness of breath, chest pain, dizziness, lightheadedness, abdominal pain or discomfort, nausea vomiting or diarrhea. Positive pain and swelling in penis and scrotum. Physical Exam 2 Exam: Exam: Alert and oriented X3, able to give good history. Turkmen speaking Neuro: CN II-X11 intact, no deficits, visual acuity intact ENT: Hearing intact, lips moist Cardiac: S1 S2 RRR, No ectopy Pulmonary: lungs clear to auscultation, No increased WOB. Abdominal: BS active in all 4 quadrants, no guarding or tenderness MSK: Strength 5/5 upper and lower extremities : + swelling in penis and scrotum, healing incision without redness, or warmth. Moon cath patent. CYU Extremities: No edema in lower extremities Psych: mood stable, Pleasant and cooperative. Skin: Warm and dry, Intact Vital Signs: Vital Signs: Last Vital Signs Temp 98.5 F 12/30/24 07:12 Pulse 76 12/30/24 08:32 Resp 18 12/30/24 08:32 BP 140/65 H 12/30/24 07:12 Pulse Ox 94 12/30/24 07:12 O2 Del Method Nasal Cannula 12/30/24 07:12 O2 Flow Rate 2 12/30/24 07:12 BMI result Body Mass Index 36.5 Objective Data Active Medications Acetaminophen (Acetaminophen 325 Mg Tablet) 650 mg PO Q6H PRN PRN Reason: Pain, Mild 1-3,fever,headache Amlodipine Besylate (Amlodipine Besylate 10 Mg Tablet) 10 mg PO DAILY [facility]; Protocol Last Admin: 12/30/24 07:44 Dose: 10 mg Documented By: GIRISH Aspirin (Aspirin Enteric Coated 81 Mg Tablet.) 81 mg PO DAILY [facility] Last Admin: 12/30/24 07:44 Dose: 81 mg Documented By: GIRISH Atorvastatin Calcium (Atorvastatin Calcium 80 Mg Tablet) 80 mg PO BEDTIME [facility] Last Admin: 12/29/24 19:45 Dose: 80 mg Documented By: ADEBAYO Budesonide (Budesonide 0.5 Mg/2 Ml Ampul.Neb) 0.5 mg INHALE RBID [facility] Last Admin: 12/30/24 08:28 Dose: 0.5 mg Documented By: VALERIA Calcium Carbonate (Calcium Carbonate 750 Mg Tab.Chew) 750 mg PO Q4H PRN PRN Reason: Heartburn Carvedilol (Carvedilol 12.5 Mg Tablet) 12.5 mg PO BID [facility] Last Admin: 12/30/24 07:45 Dose: 12.5 mg Documented By: GIRISH Dextrose (Dextrose 50 % 25 Gm/50 Ml Syringe) 25 gm IVPUSH Q15M PRN; Protocol PRN Reason: per Hypoglycemia Standing Ord. Enoxaparin Sodium (Enoxaparin Sodium 40 Mg/0.4 Ml Syringe) 40 mg SUBCUT Q24H [facility] Last Admin: 12/30/24 07:45 Dose: 40 mg Documented By: GIRISH Fluticasone Propionate (Fluticasone Propionate 100 Mcg Blst.W.Dev) 2 puff INHALE RBID [facility] Last Admin: 12/30/24 08:28 Dose: 2 puff Documented By: VALERIA Glucose (Glucose Gel 15 Gm Gel..Gram.) 15 gm PO Q15M PRN; Protocol PRN Reason: per Hypoglycemia Standing Ord. Piperacillin Sod/Tazobactam (Sod 3.375 gm/ Sodium Chloride) 50 mls @ 100 mls/hr IV Q8H [facility] Last Infusion: 12/30/24 02:56 Dose: Infused Documented By: ROSELIAQC Vancomycin HCl 1,500 mg/ (Sodium Chloride) 500 mls @ 333.333 mls/hr IV Q24H [facility] Sodium Chloride (Ns) 1,000 mls @ 100 mls/hr IVCONT .Q10H [facility] Stop: 12/30/24 20:44 Last Infusion: 12/30/24 08:38 Dose: Infused Documented By: GIRISH Insulin Glargine (Insulin Glargine,Hum.Rec.Anlog 100 Unit/Ml 10 Ml Vial) 34 unit SUBCUT DAILY [facility] Last Admin: 12/30/24 07:45 Dose: 34 unit Documented By: GIRISH Insulin Human Lispro (Insulin Lispro 100 Unit/Ml 3 Ml Vial) 0 unit SUBCUT QIDACHS [facility]; Protocol Last Admin: 12/30/24 07:45 Dose: 2 unit Documented By: GIRISH Magnesium Hydroxide (Milk Of Magnesia 30 Ml Oral.Susp) 30 ml PO DAILY PRN PRN Reason: Constipation Melatonin (Melatonin 3 Mg Tablet) 6 mg PO BEDTIME PRN PRN Reason: Insomnia Last Admin: 12/29/24 21:16 Dose: 6 mg Documented By: ADEBAYO Morphine Sulfate (Morphine Sulfate 4 Mg/Ml Cartridge) 4 mg IVPUSH Q4H PRN; Protocol PRN Reason: Pain, Severe (Pain Scale 7-10) Last Admin: 12/30/24 09:29 Dose: 4 mg Documented By: GIRISH Omeprazole (Omeprazole 20 Mg Capsule.Dr) 20 mg PO DAILY@0630 [facility] Last Admin: 12/30/24 05:24 Dose: 20 mg Documented By: ADEBAYO Pharmacy Consult (Consult Rx Vancomycin Dosing) 1 each MISCELLANE DAILY PRN PRN Reason: Consult order Sodium Chloride (0.9 % Sodium Chloride Flush 3 Ml Syringe) 3 ml IVFLUSH [facility] Last Admin: 12/30/24 06:50 Dose: Not Given Documented By: GIRISH Non-Admin Reason: IV Running Labs 12/30/24 06:00 12/30/24 06:01 Labs: Laboratory Results - last 24 hr 12/29/24 12/29/24 12/29/24 19:26 20:25 20:33 MCV MCH MCHC RDW Plt Count MPV Immature Gran % (Auto) Neut % (Auto) Lymph % (Auto) [place] % (Auto) Eos % (Auto) Baso % (Auto) Lymph # (Auto) [place] # (Auto) Eos # (Auto) Baso # (Auto) Abs Immat Gran (auto) Absolute Neuts (auto) Absolute Nucleated RBC Nucleated RBC % (auto) Hold Purple Top SEE NOTE Hold Blue Top SEE NOTE Anion Gap Estim Creat Clear Calc 55.4 Estimated GFR 51 POC Glucose 151 H Random Glucose Calcium B-Natriuretic Peptide Hold Yellow Top See Note Urine Color Yellow Urine Appearance Clear Urine pH 5.5 Ur Specific [place] 1.010 Urine Protein 30 (1+) H Urine Glucose (UA) Negative Urine Ketones Negative Urine Blood Trace H Urine Nitrite Negative Ur Leukocyte Esterase Trace H Urine RBC 0-2 Urine WBC 0-5 Ur Squamous Epith Cells 0-2 Urine Bacteria None Seen Hyaline Casts 0-2 12/30/24 12/30/24 12/30/24 06:00 06:01 06:01 MCV 81.5 MCH 27.6 MCHC 33.8 RDW 14.5 Plt Count 230 MPV 10.6 Immature Gran % (Auto) 0.4 Neut % (Auto) 70.7 Lymph % (Auto) 14.6 L [place] % (Auto) 9.7 Eos % (Auto) 4.2 H Baso % (Auto) 0.4 Lymph # (Auto) 0.8 L [place] # (Auto) 0.6 Eos # (Auto) 0.2 Baso # (Auto) 0.0 Abs Immat Gran (auto) 0.02 Absolute Neuts (auto) 4.0 Absolute Nucleated RBC 0.000 Nucleated RBC % (auto) 0.0 Hold Purple Top Hold Blue Top Anion Gap 12 Estim Creat Clear Calc 54.7 57.5 Estimated GFR 50 POC Glucose Random Glucose Calcium B-Natriuretic Peptide 307 H Hold Yellow Top Urine Color Urine Appearance Urine pH Ur Specific [place] Urine Protein Urine Glucose (UA) Urine Ketones Urine Blood Urine Nitrite Ur Leukocyte Esterase Urine RBC Urine WBC Ur Squamous Epith Cells Urine Bacteria Hyaline Casts 12/30/24 12/30/24 06:01 07:16 MCV MCH MCHC RDW Plt Count MPV Immature Gran % (Auto) Neut % (Auto) Lymph % (Auto) [place] % (Auto) Eos % (Auto) Baso % (Auto) Lymph # (Auto) [place] # (Auto) Eos # (Auto) Baso # (Auto) Abs Immat Gran (auto) Absolute Neuts (auto) Absolute Nucleated RBC Nucleated RBC % (auto) Hold Purple Top Hold Blue Top Anion Gap Estim Creat Clear Calc Estimated GFR 53 POC Glucose 151 H Random Glucose 174 H Calcium 7.8 L D B-Natriuretic Peptide Hold Yellow Top Urine Color Urine Appearance Urine pH Ur Specific [place] Urine Protein Urine Glucose (UA) Urine Ketones Urine Blood Urine Nitrite Ur Leukocyte Esterase Urine RBC Urine WBC Ur Squamous Epith Cells Urine Bacteria Hyaline Casts Imaging Chest x-ray: Radiologist's impression: Chest Xray 12/29/2024 No consolidation. Mild bilateral lower lung atelectasis. Calcified right lower lung granuloma. No pleural effusion. No pneumothorax. No cardiomegaly. No acute fracture Microbiology Microbiology Results: Microbiology 12/29/24 20:25 Urine Culture - Preliminary Urine Catheterized - Moon Catheter No growth to date. 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 Oswald on 12/23/2024, asthma, esophageal constriction with history of dilatation is being seen per request of urologist for medical management after transfer from [facility] for suspected penile prsthetic infection. ?Sepsis secondary to UTI, Urinary retention S/P moon placement Continue Vanco and Zosyn as ordered per Urology Urine Culture not indicated from [place] [facility] [place] Repeat culture 12/29/2024, negative nitrates, trace Leuk esterace. No growth to date Plan for Moon discontinuation per Urology. WBC WNL, he has been afebrile Recent penile prosthesis Plan per Urology Penis and scrotal edema but incision appears stable without evidence of infection Pain management with Oxycodone and PRN morphine for severe pain CKD Stage 3A SP IVF. Has been seen by [facility] in the past Baseline creatinine 1.5. Avoid hypotension and nephrotoxic medications Patient can follow with Nephrology as an outpatient Asthma, SOB with exertion Duo nebs p.r.n. Continue fluticasone and budesinide BID BNP 307 this morning. [place] [facility] [place] to be 3170. Chest x-ray negative for any abnormalities. Atelectasis noted-Incentive spirometry ordered Wean O2 as tolerated, pt does not use O2 at home Respiratory Viral [place] [facility] [place]. 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 HTN Continue amlodipine and Coreg Avoid hypotension noting mild CYN CAD with PCI hx and RCA WATER CHEMIST Patient follows with cardiology as an outpatient- Last seen 12/24/2024 Continue aspirin and statin Continue Coreg 12.5 mg b.i.d. HLD Continue atorvastatin and aspirin GERD/esophageal stricture history Continue pantoprazole or equivalent Insomnia Continue Risperidone at HS DVT prophy:Lovenox CODE Status: FULL CODE Quality Stroke Does the patient have a stroke diagnosis?: No VTE Prior VTE?: No VTE Risk Level:: Medical - moderate - high VTE Device Contraindication: Treatment Not Indicated VTE Drug Contraindication: N/A - Med Ordered
[2024-12-30 11:01] LABS: Glucose, Whole Blood 180 mg/dL (60-115)
[2024-12-30] MEDS: oxyCODONE HCl Immed Release 5 MG TABLET PO (12:29)
--- NOTE | 2024-12-30 13:16 | PM.HPGS ---
History of Present Illness History of Present Illness Date of Service: 12/29/24 Chief complaint: Urinary retention with urosepsis Narrative: Osvaldo Brito is a 64 year old male Underwent penile prosthetic placement last Sunday Presented to [facility] with urinary retention and urinary tract infection yesterday Underwent evaluation with CT scan and laboratories Transferred to [facility] for suspicion of infected penile implant Placed on vancomycin and Zosyn at [facility] by Infectious Disease Initially had mildly elevated creatinine Ravi catheter placed for urinary retention at [facility] Records have been reviewed and medications continued since arrival at [place] Cultures currently pending from [facility] Evaluation required with hospitalist service to help optimize diabetic management Plan repeat labs in the morning Review of Systems Constitutional: Constitutional: Reports as per HPI and Reports no additional constitutional complaints Cardiovascular: Cardiovascular: Reports as per HPI and Reports no additional cardiovascular complaints Respiratory: Respiratory: Reports as per HPI and Reports no additional respiratory complaints Gastrointestinal: Gastrointestinal: Reports as per HPI and Reports no additional gastrointestinal complaints Genitourinary: Genitourinary: Reports as per HPI Musculoskeletal: Musculoskeletal: Reports no additional musculoskeletal complaints and Reports as per HPI Neurologic: Reports system reviewed and no additional complaints, except as documented and Reports as per HPI [facility] Past Medical History Medical History Arthritis Asthma Peripheral arterial occlusive disease Hyperlipidemia IBS (irritable bowel syndrome) Benign prostatic hyperplasia without lower urinary tract symptoms GERD (gastroesophageal reflux disease) Chronic kidney disease Acute kidney failure Abdominal bloating Painful arc syndrome of right shoulder Chronic idiopathic constipation Tubular adenoma Myocardial infarct, old Diabetes PVD (peripheral vascular disease) CAD (coronary artery disease) Family history of prostate cancer Scrotal swelling Elevated PSA Family History Family History Maternal Grandmother Diabetes Paternal Grandmother Diabetes Brother Diabetes Mother No problems noted. Father Diabetes Surgical History Surgical History Hx of aorto-femoral bypass History of coronary artery stent placement Hx of coronary angioplasty Hx of ligation of vein History of esophagogastroduodenoscopy (EGD) Hx of colonoscopy Hx of arthroscopic knee surgery History of surgery History of vascular surgery History of cardiac cath Social History Social History (Reviewed 12/29/24 @ 19:05 by ADDISON Vasquez Household Members: Family Housing: Apartment Do you presently have visiting nurse or other home services: No Alcohol intake: never Patient Tobacco Use Status: Former Tobacco user Tobacco use type: Cigarette Years Smoked: 35+ Currently Displaying Signs/Symptoms of Drug Intoxication Withdrawal: No Do you feel safe in your current relationship?: Yes Advance Directives: No Advance Directives Information Provided: Yes Advance Directives on File: No Do you have a plan to hurt others: No Plan service: No Current occupational status: disabled Current occupation: right hand dominant Travel History Ebola Risk: Travel/Contact With Anyone From Affected Area/s: No Has Patient Experienced Ebola Symptoms: No Meds Allergies Allergy/AdvReac Type Severity Reaction Status Date / Time No Known Allergies Allergy Verified 12/22/24 06:19 Active Medications: Current Medications Acetaminophen (Acetaminophen 325 Mg Tablet) 650 mg PO Q6H PRN PRN Reason: Pain, Mild 1-3,fever,headache Amlodipine Besylate (Amlodipine Besylate 10 Mg Tablet) 10 mg PO DAILY [facility]; Protocol Last Admin: 12/30/24 07:44 Dose: 10 mg Aspirin (Aspirin Enteric Coated 81 Mg Tablet.Dr) 81 mg PO DAILY [facility] Last Admin: 12/30/24 07:44 Dose: 81 mg Atorvastatin Calcium (Atorvastatin Calcium 80 Mg Tablet) 80 mg PO BEDTIME [facility] Last Admin: 12/29/24 19:45 Dose: 80 mg Budesonide (Budesonide 0.5 Mg/2 Ml Ampul.Neb) 0.5 mg INHALE RBID [facility] Last Admin: 12/30/24 08:28 Dose: 0.5 mg Calcium Carbonate (Calcium Carbonate 750 Mg Tab.Chew) 750 mg PO Q4H PRN PRN Reason: Heartburn Carvedilol (Carvedilol 12.5 Mg Tablet) 12.5 mg PO BID [facility] Last Admin: 12/30/24 07:45 Dose: 12.5 mg Cilostazol (Cilostazol 100 Mg Tablet) 100 mg PO BID [facility] Dextrose (Dextrose 50 % 25 Gm/50 Ml Syringe) 25 gm IVPUSH Q15M PRN; Protocol PRN Reason: per Hypoglycemia Standing Ord. Enoxaparin Sodium (Enoxaparin Sodium 40 Mg/0.4 Ml Syringe) 40 mg SUBCUT Q24H [facility] Last Admin: 12/30/24 07:45 Dose: 40 mg Famotidine (Famotidine 20 Mg Tablet) 20 mg PO BEDTIME [facility] Fluticasone Propionate (Fluticasone Propionate 100 Mcg Blst.W.Dev) 2 puff INHALE RBID [facility] Last Admin: 12/30/24 08:28 Dose: 2 puff Gabapentin (Gabapentin 300 Mg Capsule) 300 mg PO DAILY [facility] Last Admin: 12/30/24 12:29 Dose: 300 mg Gabapentin (Gabapentin 300 Mg Capsule) 600 mg PO BEDTIME [facility] Glucose (Glucose Gel 15 Gm Gel..Gram.) 15 gm PO Q15M PRN; Protocol PRN Reason: per Hypoglycemia Standing Ord. Piperacillin Sod/Tazobactam (Sod 3.375 gm/ Sodium Chloride) 50 mls @ 100 mls/hr IV Q8H [facility] Last Infusion: 12/30/24 12:21 Dose: Infused Vancomycin HCl 1,500 mg/ (Sodium Chloride) 500 mls @ 333.333 mls/hr IV Q24H [facility] Insulin Glargine (Insulin Glargine,Hum.Rec.Anlog 100 Unit/Ml 10 Ml Vial) 34 unit SUBCUT DAILY [facility] Last Admin: 12/30/24 07:45 Dose: 34 unit Insulin Human Lispro (Insulin Lispro 100 Unit/Ml 3 Ml Vial) 0 unit SUBCUT QIDACHS [facility]; Protocol Last Admin: 12/30/24 11:38 Dose: 2 unit Lidocaine (Lidocaine 4 % Patch Adh..Patch) 1 patch TRANSDERMA DAILY PRN PRN Reason: Pain Magnesium Hydroxide (Milk Of Magnesia 30 Ml Oral.Susp) 30 ml PO DAILY PRN PRN Reason: Constipation Melatonin (Melatonin 3 Mg Tablet) 6 mg PO BEDTIME PRN PRN Reason: Insomnia Last Admin: 12/29/24 21:16 Dose: 6 mg Morphine Sulfate (Morphine Sulfate 4 Mg/Ml Cartridge) 4 mg IVPUSH Q4H PRN; Protocol PRN Reason: Pain, Severe (Pain Scale 7-10) Last Admin: 12/30/24 09:29 Dose: 4 mg Omeprazole (Omeprazole 20 Mg Capsule.Dr) 20 mg PO DAILY@0630 [facility] Last Admin: 12/30/24 05:24 Dose: 20 mg Oxycodone HCl (Oxycodone Hcl Immed Release 5 Mg Tablet) 5 mg PO Q6H PRN PRN Reason: Pain, Moderate(Pain Scale 4-6) Last Admin: 12/30/24 12:29 Dose: 5 mg Pharmacy Consult (Consult Rx Vancomycin Dosing) 1 each MISCELLANE DAILY PRN PRN Reason: Consult order Risperidone (Risperidone 3 Mg Tablet) 3 mg PO BEDTIME [facility] Sodium Chloride (0.9 % Sodium Chloride Flush 3 Ml Syringe) 3 ml IVFLUSH QSHIFT [facility] Last Admin: 12/30/24 06:50 Dose: Not Given Home Medications ?Medication ?Instructions ?Recorded ?Confirmed ?Last Taken ?Type aspirin 81 mg tablet,delayed 81 mg PO DAILY 11/11/20 12/29/24 12/11/24 History release (Adult Low Dose Aspirin) atorvastatin 80 mg tablet 80 mg PO BEDTIME 11/11/20 12/29/24 03/08/22 History blood sugar diagnostic (FreeStyle #10 ea 11/11/20 12/24/24 Unknown History Lite Strips) glucose 4 gram chewable tablet 8 g PO Q15M PRN Hypoglycemia 11/11/20 12/29/24 Unknown History (Dex4 Glucose) gabapentin 300 mg capsule 300 mg PO DAILY 07/12/21 12/29/24 12/22/24 05:00 History lancets 28 gauge (TRUEplus Lancets) #100 ea 07/12/21 12/24/24 Unknown History pen needle, diabetic 32 gauge x #50 ea 07/12/21 12/24/24 Unknown History (Pentips Pen Needle) risperidone 3 mg tablet 3 mg PO BEDTIME 07/12/21 12/29/24 Unknown History tirzepatide 5 mg/0.5 mL 5 mg subcut TH@0900 12/29/22 12/29/24 12/11/24 History subcutaneous pen injector (Karla) tramadol 50 mg tablet 50 mg PO Q8H PRN severe pain 12/22/24 12/29/24 Unknown History acetaminophen 650 mg 1,300 mg PO Q8H PRN pain 12/29/24 12/29/24 Unknown History tablet,extended release amlodipine 10 mg tablet 10 mg PO DAILY 12/29/24 12/29/24 Unknown History carvedilol 12.5 mg tablet 12.5 mg PO BID 12/29/24 12/29/24 Unknown History cilostazol 100 mg tablet 100 mg PO BID 12/29/24 12/29/24 Unknown History gabapentin 300 mg capsule 600 mg PO BEDTIME 12/29/24 12/29/24 Unknown History insulin glargine 100 unit/mL (3 35 unit subcut BEDTIME 12/29/24 12/29/24 Unknown History mL) subcutaneous pen (Lantus Solostar U-100 Insulin) lidocaine 5 % topical patch 1 patch topical DAILY PRN Pain 12/29/24 12/29/24 Unknown History Physical Exam Vital Signs: Vital Signs: Last Vital Signs Temp 98.5 F 12/30/24 07:12 Pulse 76 12/30/24 08:32 Resp 18 12/30/24 08:32 BP 140/65 H 12/30/24 07:12 Pulse Ox 94 12/30/24 07:12 O2 Del Method Nasal Cannula 12/30/24 07:12 O2 Flow Rate 2 12/30/24 07:12 BMI result Body Mass Index 36.5 Const: General: cooperative, healthy appearing, comfortable and no acute distress Orientation/consciousness: patient oriented x3 HEENT: Face and sinus: Yes normal facial exam Mouth: moist mucous membranes Neck: Neck: Yes normal visual inspection, Yes full ROM and Yes trachea midline Chest: Chest palpation & inspection: normal inspection of the chest Resp: Effort & Inspection: normal respiratory effort, able to speak in complete sentences and no respiratory distress GI: Inspection: Yes normal to inspection Back/Spine/Pelvis: Cervical Spine: normal cervical lordosis Thoracic/Lumbar Spine: thoracic and lumbar spine normal to inspection Skin: General skin exam: no rashes or lesions noted Neuro: General: patient oriented x3, tone normal and moves all extremities Extrem: General: Yes normal to inspection and Yes capillary refill normal Results Results Labs: Short CBC 12/30/24 Range/Units 06:00 WBC 5.7 (4.8-10.8) X10*3/uL Hgb 9.4 L D (14.0-18.0) g/dl Hct 27.8 L D (42.0-52.0) % Plt Count 230 (160-400) X10*3/uL BMP 12/29/24 12/30/24 12/30/24 19:26 06:01 06:01 Sodium 141 Potassium 3.8 Chloride 109 H Carbon Dioxide 24 BUN 25 H Creatinine 1.41 H 1.43 H 1.36 Calcium 7.8 L D Urine 12/29/24 Range/Units 20:25 Urine Color Yellow Urine Appearance Clear Urine pH 5.5 (5.0-9.0) Ur Specific [place] 1.010 (1.005-1.025) Urine Protein 30 (1+) H (Neg-Trace) mg/dL Urine Glucose (UA) Negative (Negative) mg/dL Assessment and Plan (1) Postoperative urinary retention: Status: Acute (2) Complicated urinary tract infection: Status: Acute Plan Antibiotic coverage until culture result Hospitalist consult Ravi catheter for urinary drainage Quality Stroke Does the patient have a stroke diagnosis?: No VTE Prior VTE?: No VTE Risk Level:: Medical - moderate - high VTE Device Contraindication: Treatment Not Indicated VTE Drug Contraindication: N/A - Med Ordered Procedures Date of Service Date of Service: 12/30/24
[2024-12-30] MEDS: 0.9 % Sodium Chloride Flush 3 ML SYRINGE IVFLUSH ×2 (14:32→19:46)
[2024-12-30 16:23] LABS: Glucose, Whole Blood 106 mg/dL (60-115)
[2024-12-30 19:33] LABS: Glucose, Whole Blood 152 mg/dL (60-115)
[2024-12-31] VITALS (8 sets, daily range): BP systolic 143–169; BP diastolic 67–85; PULSE 69–88; RESP 14–18; TEMP 36.3–37.1; O2SAT 92–96
[2024-12-31 07:00] LABS: Creatinine Clr Calc Pharmacy 56.6; Estimated Glomerular Filt Rate 52
[2024-12-31 07:37] LABS: Glucose, Whole Blood 98 mg/dL (60-115)
[2024-12-31] MEDS: Aspirin Enteric Coated 81 MG TABLET.DR PO (08:00)
[2024-12-31] MEDS: Insulin Glargine,Hum.rec.anlog 100 UNIT/ML 10 ML VIAL 34 UNIT SUBCUT (08:42)
[2024-12-31] MEDS: 0.9 % Sodium Chloride Flush 3 ML SYRINGE IVFLUSH ×3 (08:43→20:16)
[2024-12-31 11:28] LABS: Glucose, Whole Blood 189 mg/dL (60-115)
[2024-12-31] MEDS: oxyCODONE HCl Immed Release 5 MG TABLET PO ×2 (11:43→18:15)
--- NOTE | 2024-12-31 12:22 | P.PNUR_ITS ---
Subjective Subjective Date of Service: 12/31/24 Interval history: Urine clear Draining well Edema from surgery slowly resolving Creatinine at baseline Switch to oral antibiotics Hopefully DC tomorrow Physical Exam 2 Vital Signs: Vital Signs: Last Vital Signs Temp 97.4 F 12/31/24 07:45 Pulse 69 12/31/24 07:45 Resp 18 12/31/24 07:45 BP 157/79 H 12/31/24 07:45 Pulse Ox 95 12/31/24 07:45 O2 Del Method Room Air 12/31/24 07:45 O2 Flow Rate 2 12/31/24 03:19 BMI result Body Mass Index 36.5 Const: General: cooperative, healthy appearing, comfortable and no acute distress Orientation/consciousness: patient oriented x3 HEENT: Face and sinus: Yes normal facial exam Mouth: moist mucous membranes Neck: Neck: Yes normal visual inspection, Yes full ROM and Yes trachea midline Chest: Chest palpation & inspection: normal inspection of the chest Resp: Effort & Inspection: normal respiratory effort, able to speak in complete sentences and no respiratory distress GI: Inspection: Yes normal to inspection Back/Spine/Pelvis: Cervical Spine: normal cervical lordosis Thoracic/Lumbar Spine: thoracic and lumbar spine normal to inspection Skin: General skin exam: no rashes or lesions noted Neuro: General: patient oriented x3, tone normal and moves all extremities Extrem: General: Yes normal to inspection and Yes capillary refill normal Urology Results Labs 12/30/24 06:00 12/31/24 05:25 Labs: Laboratory Results - last 24 hr 12/30/24 12/30/24 12/31/24 16:19 19:28 05:25 Hold Purple Top SEE NOTE Creatinine 1.38 Estim Creat Clear Calc 56.6 Estimated GFR 52 POC Glucose 106 152 H 12/31/24 12/31/24 07:32 11:23 Hold Purple Top Creatinine Estim Creat Clear Calc Estimated GFR POC Glucose 98 189 H Progress Note: A&P Assessment and plan (1) Postoperative urinary retention: Status: Acute (2) Complicated urinary tract infection: Status: Acute Plan Switch to oral antibiotics Plan DC tomorrow Time Spent With Patient Time: Total time managing care of this patient today ____ minutes. Progress Note: Quality Stroke Does the patient have a stroke diagnosis?: No
--- NOTE | 2024-12-31 15:50 | MHC.CM.PN ---
EMR REVIEWED AND PER MD ROUNDS, PT IS NOT YET MEDICALLY CLEARED FOR DC . PT WILL BE SWITCHED TO PO ABT AND DC ANTICIPATED FOR TOMORROW. CM WILL CONTINUE TO FOLLOW FOR ANY CHANGE TO DC PLAN.
[2024-12-31 16:10] LABS: Glucose, Whole Blood 218 mg/dL (60-115)
[2024-12-31 19:57] LABS: Glucose, Whole Blood 146 mg/dL (60-115)
[2025-01-01] VITALS (8 sets, daily range): BP systolic 137–159; BP diastolic 64–71; PULSE 68–75; RESP 14–18; TEMP 36.2–36.7; O2SAT 93–96
[2025-01-01 07:21] LABS: Creatinine Clr Calc Pharmacy 48.2; Estimated Glomerular Filt Rate 43
[2025-01-01 07:24] LABS: Glucose, Whole Blood 116 mg/dL (60-115)
[2025-01-01] MEDS: Aspirin Enteric Coated 81 MG TABLET.DR PO (07:36)
[2025-01-01] MEDS: 0.9 % Sodium Chloride Flush 3 ML SYRINGE IVFLUSH ×3 (07:36→20:01)
[2025-01-01] MEDS: Insulin Glargine,Hum.rec.anlog 100 UNIT/ML 10 ML VIAL 34 UNIT SUBCUT (07:36)
[2025-01-01 11:24] LABS: Glucose, Whole Blood 179 mg/dL (60-115)
[2025-01-01 16:06] LABS: Glucose, Whole Blood 174 mg/dL (60-115)
[2025-01-01] MEDS: oxyCODONE HCl Immed Release 5 MG TABLET PO (19:02)
[2025-01-01 19:53] LABS: Glucose, Whole Blood 146 mg/dL (60-115)
[2025-01-02] VITALS (11 sets, daily range): BP systolic 142–170; BP diastolic 64–79; PULSE 69–80; RESP 18; TEMP 36.3–36.7; O2SAT 93–97
[2025-01-02 06:11] LABS: Anion Gap 13 (12-20); Blood Urea Nitrogen 27 mg/dL (9-16); Calcium 8.4 mg/dL (8.4-10.2); Carbon Dioxide 22 mmol/L (22-29); Chloride 111 mmol/L (96-108); Creatinine Clr Calc Pharmacy 46.8; Estimated Glomerular Filt Rate 42; Potassium 4.1 mmol/L (3.3-5.1); Sodium 142 mmol/L (135-145)
[2025-01-02 07:47] LABS: Glucose, Whole Blood 128 mg/dL (60-115)
[2025-01-02] MEDS: Aspirin Enteric Coated 81 MG TABLET.DR PO (07:56)
[2025-01-02] MEDS: Insulin Glargine,Hum.rec.anlog 100 UNIT/ML 10 ML VIAL 34 UNIT SUBCUT (07:59)
[2025-01-02] MEDS: 0.9 % Sodium Chloride Flush 3 ML SYRINGE IVFLUSH ×3 (08:03→20:57)
[2025-01-02] MEDS: oxyCODONE HCl Immed Release 5 MG TABLET PO ×2 (10:28→16:07)
[2025-01-02 11:28] LABS: Glucose, Whole Blood 198 mg/dL (60-115)
--- NOTE | 2025-01-02 16:19 | PC.NURSE ---
Pt returned from MRI. BP 170/78 c/o 11/04 pain- medicated with po oxycodone. Will monitor
[2025-01-02 16:30] LABS: Glucose, Whole Blood 188 mg/dL (60-115)
[2025-01-02 20:16] LABS: Glucose, Whole Blood 237 mg/dL (60-115)
[2025-01-03] VITALS (7 sets, daily range): BP systolic 139–164; BP diastolic 62–75; PULSE 73–77; RESP 16–18; TEMP 36.3–37; O2SAT 95–98
[2025-01-03 07:26] LABS: Glucose, Whole Blood 141 mg/dL (60-115)
[2025-01-03] MEDS: Aspirin Enteric Coated 81 MG TABLET.DR PO (08:05)
[2025-01-03] MEDS: 0.9 % Sodium Chloride Flush 3 ML SYRINGE IVFLUSH ×3 (08:06→20:39)
[2025-01-03] MEDS: Insulin Glargine,Hum.rec.anlog 100 UNIT/ML 10 ML VIAL 34 UNIT SUBCUT (08:07)
[2025-01-03] MEDS: oxyCODONE HCl Immed Release 5 MG TABLET PO ×2 (10:17→20:47)
[2025-01-03 11:17] LABS: Glucose, Whole Blood 218 mg/dL (60-115)
[2025-01-03 16:09] LABS: Glucose, Whole Blood 126 mg/dL (60-115)
[2025-01-03 20:11] LABS: Glucose, Whole Blood 138 mg/dL (60-115)
[2025-01-03] MEDS: Lidocaine 4 % Patch ADH..PATCH 1 PATCH TRANSDERMA (20:47)
[2025-01-04] VITALS (7 sets, daily range): BP systolic 125–165; BP diastolic 59–80; PULSE 73–77; RESP 14–18; TEMP 36–37; O2SAT 95–98
[2025-01-04] MEDS: oxyCODONE HCl Immed Release 5 MG TABLET PO (02:58)
[2025-01-04 07:17] LABS: Glucose, Whole Blood 124 mg/dL (60-115)
[2025-01-04] MEDS: Insulin Glargine,Hum.rec.anlog 100 UNIT/ML 10 ML VIAL 34 UNIT SUBCUT (08:10)
[2025-01-04] MEDS: Aspirin Enteric Coated 81 MG TABLET.DR PO (08:11)
[2025-01-04] MEDS: 0.9 % Sodium Chloride Flush 3 ML SYRINGE IVFLUSH ×3 (08:13→21:07)
[2025-01-04 11:01] LABS: Glucose, Whole Blood 175 mg/dL (60-115)
--- NOTE | 2025-01-04 14:49 | P.PNUR_ITS ---
Subjective Subjective Date of Service: 01/04/25 Interval history: Continues with antibiotics Creatinine baseline Minimal white count Persistent pain MRI reviewed -consistent with infected penile prosthetic Will plan for washout next week Physical Exam 2 Vital Signs: Vital Signs: Last Vital Signs Temp 96.8 F 01/04/25 07:28 Pulse 73 01/04/25 07:30 Resp 18 01/04/25 07:30 BP 165/79 H 01/04/25 07:28 Pulse Ox 96 01/04/25 07:28 O2 Del Method Room Air 01/04/25 07:28 O2 Flow Rate 2 12/31/24 03:19 BMI result Body Mass Index 36.5 Const: General: cooperative, healthy appearing, comfortable and no acute distress Orientation/consciousness: patient oriented x3 HEENT: Face and sinus: Yes normal facial exam Mouth: moist mucous membranes Neck: Neck: Yes normal visual inspection, Yes full ROM and Yes trachea midline Chest: Chest palpation & inspection: normal inspection of the chest Resp: Effort & Inspection: normal respiratory effort, able to speak in complete sentences and no respiratory distress GI: Inspection: Yes normal to inspection Back/Spine/Pelvis: Cervical Spine: normal cervical lordosis Thoracic/Lumbar Spine: thoracic and lumbar spine normal to inspection Skin: General skin exam: no rashes or lesions noted Neuro: General: patient oriented x3, tone normal and moves all extremities Extrem: General: Yes normal to inspection and Yes capillary refill normal Urology Results Labs 12/30/24 06:00 01/02/25 05:24 Labs: Laboratory Results - last 24 hr 01/03/25 01/03/25 01/04/25 16:05 20:07 07:13 POC Glucose 126 H 138 H 124 H 01/04/25 10:58 POC Glucose 175 H Progress Note: A&P Assessment and plan (1) Postoperative urinary retention: Status: Acute (2) Complicated urinary tract infection: Status: Acute Plan Plan for penile prosthetic washout and exchange next week, Time Spent With Patient Time: Total time managing care of this patient today ____ minutes. Progress Note: Quality Stroke Does the patient have a stroke diagnosis?: No
[2025-01-04 15:51] LABS: Glucose, Whole Blood 182 mg/dL (60-115)
[2025-01-04 19:28] LABS: Glucose, Whole Blood 159 mg/dL (60-115)
[2025-01-05] VITALS (7 sets, daily range): BP systolic 121–152; BP diastolic 55–71; PULSE 75–87; RESP 16–18; TEMP 36.9–37.4; O2SAT 95–96
[2025-01-05 07:21] LABS: Glucose, Whole Blood 140 mg/dL (60-115)
[2025-01-05] MEDS: Insulin Glargine,Hum.rec.anlog 100 UNIT/ML 10 ML VIAL 34 UNIT SUBCUT (07:55)
[2025-01-05] MEDS: Aspirin Enteric Coated 81 MG TABLET.DR PO (07:55)
[2025-01-05] MEDS: 0.9 % Sodium Chloride Flush 3 ML SYRINGE IVFLUSH ×2 (07:56→16:39)
--- NOTE | 2025-01-05 10:36 | HO.PM.IMPN ---
Subjective Subjective Date of Service: 01/05/25 Interval History: Patient seen and examined. Denies any discomfort. Vitals have been stable. Review of Systems Denies SOB or Chest pain. Only complaint is pain in his penis. Physical Exam Exam: Exam: Alert and oriented X3, able to give good history. Taiwanese speaking Neuro: CN II-X11 intact, no deficits, visual acuity intact ENT: Hearing intact, lips moist Cardiac: S1 S2 RRR, No ectopy Pulmonary: lungs clear to auscultation, No increased WOB. Abdominal: BS active in all 4 quadrants, no guarding or tenderness MSK: Strength 5/5 upper and lower extremities : + swelling in penis and scrotum, healing incision without redness, or warmth. Moon cath patent. CYU Extremities: No edema in lower extremities Psych: mood stable, Pleasant and cooperative. Skin: Warm and dry, Intact Vital Signs: Vital Signs: Last Vital Signs Temp 99.3 F 01/05/25 07:10 Pulse 87 01/05/25 08:03 Resp 16 01/05/25 08:03 BP 152/71 H 01/05/25 07:10 Pulse Ox 96 01/05/25 07:10 O2 Del Method Room Air 01/05/25 07:10 O2 Flow Rate 2 12/31/24 03:19 BMI result Body Mass Index 36.5 Objective Data Active Medications Acetaminophen (Acetaminophen 325 Mg Tablet) 650 mg PO Q6H PRN PRN Reason: Pain, Mild 1-3,fever,headache Last Admin: 01/02/25 07:57 Dose: 650 mg Documented By: MARIBEL Amlodipine Besylate (Amlodipine Besylate 10 Mg Tablet) 10 mg PO DAILY [facility]; Protocol Last Admin: 01/05/25 07:56 Dose: 10 mg Documented By: JUNE Aspirin (Aspirin Enteric Coated 81 Mg Tablet.) 81 mg PO DAILY [facility] Last Admin: 01/05/25 07:55 Dose: 81 mg Documented By: JUNE Atorvastatin Calcium (Atorvastatin Calcium 80 Mg Tablet) 80 mg PO BEDTIME [facility] Last Admin: 01/04/25 20:34 Dose: 80 mg Documented By: JOHNNY Budesonide (Budesonide 0.5 Mg/2 Ml Ampul.Neb) 0.5 mg INHALE RBID [facility] Last Admin: 01/05/25 08:03 Dose: 0.5 mg Documented By: JAMES Calcium Carbonate (Calcium Carbonate 750 Mg Tab.Chew) 750 mg PO Q4H PRN PRN Reason: Heartburn Carvedilol (Carvedilol 12.5 Mg Tablet) 12.5 mg PO BID [facility] Last Admin: 01/05/25 07:56 Dose: 12.5 mg Documented By: JUNE Cilostazol (Cilostazol 100 Mg Tablet) 100 mg PO BID [facility] Last Admin: 01/05/25 07:56 Dose: 100 mg Documented By: JUNE Dextrose (Dextrose 50 % 25 Gm/50 Ml Syringe) 25 gm IVPUSH Q15M PRN; Protocol PRN Reason: per Hypoglycemia Standing Ord. Enoxaparin Sodium (Enoxaparin Sodium 40 Mg/0.4 Ml Syringe) 40 mg SUBCUT Q24H [facility] Last Admin: 01/05/25 07:55 Dose: 40 mg Documented By: JUNE Famotidine (Famotidine 20 Mg Tablet) 20 mg PO BEDTIME [facility] Last Admin: 01/04/25 20:34 Dose: 20 mg Documented By: JOHNNY Gabapentin (Gabapentin 300 Mg Capsule) 300 mg PO DAILY [facility] Last Admin: 01/05/25 07:55 Dose: 300 mg Documented By: JUNE Gabapentin (Gabapentin 300 Mg Capsule) 600 mg PO BEDTIME [facility] Last Admin: 01/04/25 20:32 Dose: 600 mg Documented By: JOHNNY Glucose (Glucose Gel 15 Gm Gel..Gram.) 15 gm PO Q15M PRN; Protocol PRN Reason: per Hypoglycemia Standing Ord. Piperacillin Sod/Tazobactam (Sod 3.375 gm/ Sodium Chloride) 50 mls @ 100 mls/hr IV Q8H [facility] Last Infusion: 01/05/25 03:39 Dose: Infused Documented By: JOHNNY Insulin Glargine (Insulin Glargine,Hum.Rec.Anlog 100 Unit/Ml 10 Ml Vial) 34 unit SUBCUT DAILY [facility] Last Admin: 01/05/25 07:55 Dose: 34 unit Documented By: JUNE Insulin Human Lispro (Insulin Lispro 100 Unit/Ml 3 Ml Vial) 0 unit SUBCUT QIDACHS [facility]; Protocol Last Admin: 01/05/25 07:47 Dose: Not Given Documented By: JUNE Non-Admin Reason: No Insulin Coverage Levofloxacin (Levofloxacin 750 Mg Tablet) 750 mg PO Q48H [facility] Last Admin: 01/03/25 13:00 Dose: 750 mg Documented By: ONESIMO Lidocaine (Lidocaine 4 % Patch Adh..Patch) 1 patch TRANSDERMA DAILY PRN PRN Reason: Pain Last Admin: 01/03/25 20:47 Dose: 1 patch Documented By: JOHNNY Magnesium Hydroxide (Milk Of Magnesia 30 Ml Oral.Susp) 30 ml PO DAILY PRN PRN Reason: Constipation Melatonin (Melatonin 3 Mg Tablet) 6 mg PO BEDTIME PRN PRN Reason: Insomnia Last Admin: 01/02/25 20:58 Dose: 6 mg Documented By: JOHNNY Morphine Sulfate (Morphine Sulfate 4 Mg/Ml Cartridge) 4 mg IVPUSH Q4H PRN; Protocol PRN Reason: Pain, Severe (Pain Scale 7-10) Last Admin: 01/05/25 07:53 Dose: 4 mg Documented By: JUNE Omeprazole (Omeprazole 20 Mg Ambrosio.) 20 mg PO DAILY@0630 [facility] Last Admin: 01/05/25 06:11 Dose: 20 mg Documented By: JOHNNY Risperidone (Risperidone 3 Mg Tablet) 3 mg PO BEDTIME [facility] Last Admin: 01/04/25 20:33 Dose: 3 mg Documented By: JOHNNY Sodium Chloride (0.9 % Sodium Chloride Flush 3 Ml Syringe) 3 ml IVFLUSH QSHIFT [facility] Last Admin: 01/05/25 07:56 Dose: 3 ml Documented By: JUNE Labs 12/30/24 06:00 01/02/25 05:24 Labs: Laboratory Results - last 24 hr 01/04/25 01/04/25 01/04/25 10:58 15:47 19:21 POC Glucose 175 H 182 H 159 H 01/05/25 07:18 POC Glucose 140 H Assessment and Plan (1) Infected penile implant: Status: Acute Plan Patient is a 64-year-old male Taiwanese-speaking only PMH of insulin-dependent diabetes, diabetic neuropathy, IBS, hypertension, hyperlipidemia, osteoarthritis, CAD with history of PCI 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 Penile prosthetic infection/ Urinary retention S/P moon placement Continue Zosyn as ordered per Urology Plan for Moon discontinuation per Urology. Plan for Wash out in OR per Dr Oswald Pain management with Oxycodone and PRN morphine for severe pain CKD Stage 3A Has been seen by [facility] in the past Baseline creatinine 1.5. Avoid hypotension and nephrotoxic medications Patient can follow with Nephrology as an outpatient Follow labs Asthma, SOB with exertion Duo nebs p.r.n. Continue fluticasone and budesinide BID IDDM with Diabetic neuropathy Continue Lantus as ordered SSI AC HS DIabetic diet Last A1c August 2024 6.7 Patient will need to clear resumption of Mounjaro with his PCP and/or boot liner maker status post discharge Continue Gabapentin 300/600. 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 HLD Continue atorvastatin and aspirin GERD/esophageal stricture history Continue pantoprazole or equivalent Insomnia Continue Risperidone at HS Thank you for allowing me to participate in the care of this patient. Signing off at this time. Please reconsult of any acute concerns or issues arise Quality Stroke Does the patient have a stroke diagnosis?: No VTE Prior VTE?: No VTE Risk Level:: Medical - moderate - high VTE Device Contraindication: Treatment Not Indicated VTE Drug Contraindication: N/A - Med Ordered
[2025-01-05 11:01] LABS: MANUAL DIFF FLAG NO
[2025-01-05 11:03] LABS: Hematocrit 34.1 % (42.0-52.0); Hemoglobin 11.2 g/dl (14.0-18.0); Imm Gran Abs Auto 0.01 X10*3/uL (0.00-0.03); Imm Gran Pct Auto 0.1 % (0.0-0.4); Lymphocytes Absolute Auto 0.9 X10*3/uL (1.2-4.9); Mean Corpuscular HGB Conc 32.8 g/dl (31.0-36.0); Mean Corpuscular Hemoglobin 27.5 pg (27.0-33.0); Mean Corpuscular Volume 83.6 fL (80.0-98.0); NRBC Abs Auto 0.000 X10*3/uL (0.0-0.012); NRBC Pct Auto 0.0 /100WBC (0.0-0.2); Platelet Count 329 X10*3/uL (160-400); Red Blood Count 4.08 X10*6/uL (4.60-5.80); White Blood Count 8.4 X10*3/uL (4.8-10.8)
[2025-01-05 11:17] LABS: Alanine Aminotransferase 25 U/L (0-40); Albumin Level 3.3 g/dL (3.5-5.0); Alkaline Phosphatase 98 U/L (39-117); Anion Gap 13 (12-20); Aspartate Amino Transferase 31 U/L (5-37); Blood Urea Nitrogen 26 mg/dL (9-16); Calcium 9.0 mg/dL (8.4-10.2); Carbon Dioxide 25 mmol/L (22-29); Chloride 110 mmol/L (96-108); Creatinine Clr Calc Pharmacy 51.4; Estimated Glomerular Filt Rate 46; Potassium 4.9 mmol/L (3.3-5.1); Sodium 143 mmol/L (135-145); Total Protein 6.9 g/dL (6.5-8.0)
[2025-01-05 11:50] LABS: Glucose, Whole Blood 179 mg/dL (60-115)
--- NOTE | 2025-01-05 14:35 | PM.HPGS ---
History of Present Illness History of Present Illness Date of Service: 12/30/24 Chief complaint: Urinary retention with urosepsis Narrative: Osvaldo Brito is a 64 year old male Transfer from [facility] Had undergone penile prosthetic proximally 7 days ago Background diabetes which had been controlled with HbA1c at 6.7 Had presented with urinary retention. Ravi catheter had been placed. Sent for management of retention with question of possible penile prosthetic infection On examination there was typical postsurgical swelling with no clear evidence of prosthetic infection Ravi catheter in place Receiving broad-spectrum antibiotics We will continue antibiotics and observation in case prosthetic infection manifests Review of Systems Constitutional: Constitutional: Reports as per HPI and Reports no additional constitutional complaints Cardiovascular: Cardiovascular: Reports as per HPI and Reports no additional cardiovascular complaints Respiratory: Respiratory: Reports as per HPI and Reports no additional respiratory complaints Gastrointestinal: Gastrointestinal: Reports as per HPI and Reports no additional gastrointestinal complaints Genitourinary: Genitourinary: Reports as per HPI Musculoskeletal: Musculoskeletal: Reports no additional musculoskeletal complaints and Reports as per HPI Neurologic: Reports system reviewed and no additional complaints, except as documented and Reports as per HPI [facility] Past Medical History Medical History Arthritis Asthma Peripheral arterial occlusive disease Hyperlipidemia IBS (irritable bowel syndrome) Benign prostatic hyperplasia without lower urinary tract symptoms GERD (gastroesophageal reflux disease) Chronic kidney disease Acute kidney failure Abdominal bloating Painful arc syndrome of right shoulder Chronic idiopathic constipation Tubular adenoma Myocardial infarct, old Diabetes PVD (peripheral vascular disease) CAD (coronary artery disease) Family history of prostate cancer Scrotal swelling Elevated PSA Family History Family History Maternal Grandmother Diabetes Paternal Grandmother Diabetes Brother Diabetes Mother No problems noted. Father Diabetes Surgical History Surgical History Hx of aorto-femoral bypass History of coronary artery stent placement Hx of coronary angioplasty Hx of ligation of vein History of esophagogastroduodenoscopy (EGD) Hx of colonoscopy Hx of arthroscopic knee surgery History of surgery History of vascular surgery History of cardiac cath Social History Social History Household Members: Family Housing: Apartment Do you presently have visiting nurse or other home services: No Alcohol intake: never Patient Tobacco Use Status: Former Tobacco user Tobacco use type: Cigarette Years Smoked: 35+ Currently Displaying Signs/Symptoms of Drug Intoxication Withdrawal: No Do you feel safe in your current relationship?: Yes Advance Directives: No Advance Directives Information Provided: Yes Advance Directives on File: No Do you have a plan to hurt others: No Plan service: No Current occupational status: disabled Current occupation: right hand dominant Travel History Ebola Risk: Travel/Contact With Anyone From Affected Area/s: No Has Patient Experienced Ebola Symptoms: No Meds Allergies Allergy/AdvReac Type Severity Reaction Status Date / Time No Known Allergies Allergy Verified 12/22/24 06:19 Active Medications: Current Medications Acetaminophen (Acetaminophen 325 Mg Tablet) 650 mg PO Q6H PRN PRN Reason: Pain, Mild 1-3,fever,headache Last Admin: 01/02/25 07:57 Dose: 650 mg Amlodipine Besylate (Amlodipine Besylate 10 Mg Tablet) 10 mg PO DAILY [facility]; Protocol Last Admin: 01/05/25 07:56 Dose: 10 mg Aspirin (Aspirin Enteric Coated 81 Mg Tablet.Dr) 81 mg PO DAILY [facility] Last Admin: 01/05/25 07:55 Dose: 81 mg Atorvastatin Calcium (Atorvastatin Calcium 80 Mg Tablet) 80 mg PO BEDTIME [facility] Last Admin: 01/04/25 20:34 Dose: 80 mg Budesonide (Budesonide 0.5 Mg/2 Ml Ampul.Neb) 0.5 mg INHALE RBID [facility] Last Admin: 01/05/25 08:03 Dose: 0.5 mg Calcium Carbonate (Calcium Carbonate 750 Mg Tab.Chew) 750 mg PO Q4H PRN PRN Reason: Heartburn Carvedilol (Carvedilol 12.5 Mg Tablet) 12.5 mg PO BID [facility] Last Admin: 01/05/25 07:56 Dose: 12.5 mg Cilostazol (Cilostazol 100 Mg Tablet) 100 mg PO BID [facility] Last Admin: 01/05/25 07:56 Dose: 100 mg Dextrose (Dextrose 50 % 25 Gm/50 Ml Syringe) 25 gm IVPUSH Q15M PRN; Protocol PRN Reason: per Hypoglycemia Standing Ord. Enoxaparin Sodium (Enoxaparin Sodium 40 Mg/0.4 Ml Syringe) 40 mg SUBCUT Q24H [facility] Last Admin: 01/05/25 07:55 Dose: 40 mg Famotidine (Famotidine 20 Mg Tablet) 20 mg PO BEDTIME [facility] Last Admin: 01/04/25 20:34 Dose: 20 mg Gabapentin (Gabapentin 300 Mg Capsule) 300 mg PO DAILY [facility] Last Admin: 01/05/25 07:55 Dose: 300 mg Gabapentin (Gabapentin 300 Mg Capsule) 600 mg PO BEDTIME [facility] Last Admin: 01/04/25 20:32 Dose: 600 mg Glucose (Glucose Gel 15 Gm Gel..Gram.) 15 gm PO Q15M PRN; Protocol PRN Reason: per Hypoglycemia Standing Ord. Piperacillin Sod/Tazobactam (Sod 3.375 gm/ Sodium Chloride) 50 mls @ 100 mls/hr IV Q8H [facility] Last Infusion: 01/05/25 12:38 Dose: Infused Insulin Glargine (Insulin Glargine,Hum.Rec.Anlog 100 Unit/Ml 10 Ml Vial) 34 unit SUBCUT DAILY [facility] Last Admin: 01/05/25 07:55 Dose: 34 unit Insulin Human Lispro (Insulin Lispro 100 Unit/Ml 3 Ml Vial) 0 unit SUBCUT QIDACHS [facility]; Protocol Last Admin: 01/05/25 11:52 Dose: 2 unit Levofloxacin (Levofloxacin 750 Mg Tablet) 750 mg PO Q48H [facility] Last Admin: 01/05/25 11:52 Dose: 750 mg Lidocaine (Lidocaine 4 % Patch Adh..Patch) 1 patch TRANSDERMA DAILY PRN PRN Reason: Pain Last Admin: 01/03/25 20:47 Dose: 1 patch Magnesium Hydroxide (Milk Of Magnesia 30 Ml Oral.Susp) 30 ml PO DAILY PRN PRN Reason: Constipation Melatonin (Melatonin 3 Mg Tablet) 6 mg PO BEDTIME PRN PRN Reason: Insomnia Last Admin: 01/02/25 20:58 Dose: 6 mg Morphine Sulfate (Morphine Sulfate 4 Mg/Ml Cartridge) 4 mg IVPUSH Q4H PRN; Protocol PRN Reason: Pain, Severe (Pain Scale 7-10) Last Admin: 01/05/25 11:59 Dose: 4 mg Omeprazole (Omeprazole 20 Mg Capsule.Dr) 20 mg PO DAILY@0630 [facility] Last Admin: 01/05/25 06:11 Dose: 20 mg Risperidone (Risperidone 3 Mg Tablet) 3 mg PO BEDTIME [facility] Last Admin: 01/04/25 20:33 Dose: 3 mg Sodium Chloride (0.9 % Sodium Chloride Flush 3 Ml Syringe) 3 ml IVFLUSH QSHIFT [facility] Last Admin: 01/05/25 07:56 Dose: 3 ml Home Medications ?Medication ?Instructions ?Recorded ?Confirmed ?Last Taken ?Type aspirin 81 mg tablet,delayed 81 mg PO DAILY 11/11/20 12/29/24 12/11/24 History release (Adult Low Dose Aspirin) atorvastatin 80 mg tablet 80 mg PO BEDTIME 11/11/20 12/29/24 03/08/22 History blood sugar diagnostic (FreeStyle #10 ea 11/11/20 12/24/24 Unknown History Lite Strips) glucose 4 gram chewable tablet 8 g PO Q15M PRN Hypoglycemia 11/11/20 12/29/24 Unknown History (Dex4 Glucose) gabapentin 300 mg capsule 300 mg PO DAILY 07/12/21 12/29/24 12/22/24 05:00 History lancets 28 gauge (TRUEplus Lancets) #100 ea 07/12/21 12/24/24 Unknown History pen needle, diabetic 32 gauge x #50 ea 07/12/21 12/24/24 Unknown History (Pentips Pen Needle) risperidone 3 mg tablet 3 mg PO BEDTIME 07/12/21 12/29/24 Unknown History tirzepatide 5 mg/0.5 mL 5 mg subcut TH@0900 12/29/22 12/29/24 12/11/24 History subcutaneous pen injector (Karla) tramadol 50 mg tablet 50 mg PO Q8H PRN severe pain 12/22/24 12/29/24 Unknown History acetaminophen 650 mg 1,300 mg PO Q8H PRN pain 12/29/24 12/29/24 Unknown History tablet,extended release amlodipine 10 mg tablet 10 mg PO DAILY 12/29/24 12/29/24 Unknown History carvedilol 12.5 mg tablet 12.5 mg PO BID 12/29/24 12/29/24 Unknown History cilostazol 100 mg tablet 100 mg PO BID 12/29/24 12/29/24 Unknown History gabapentin 300 mg capsule 600 mg PO BEDTIME 12/29/24 12/29/24 Unknown History insulin glargine 100 unit/mL (3 35 unit subcut BEDTIME 12/29/24 12/29/24 Unknown History mL) subcutaneous pen (Lantus Solostar U-100 Insulin) lidocaine 5 % topical patch 1 patch topical DAILY PRN Pain 12/29/24 12/29/24 Unknown History Physical Exam Vital Signs: Vital Signs: Last Vital Signs Temp 99.2 F 01/05/25 11:58 Pulse 87 01/05/25 11:58 Resp 18 01/05/25 11:58 BP 121/55 L 01/05/25 11:58 Pulse Ox 95 01/05/25 11:58 O2 Del Method Room Air 01/05/25 11:58 O2 Flow Rate 2 12/31/24 03:19 BMI result Body Mass Index 36.5 Const: General: cooperative, healthy appearing, comfortable and no acute distress Orientation/consciousness: patient oriented x3 HEENT: Face and sinus: Yes normal facial exam Mouth: moist mucous membranes Neck: Neck: Yes normal visual inspection, Yes full ROM and Yes trachea midline Chest: Chest palpation & inspection: normal inspection of the chest Resp: Effort & Inspection: normal respiratory effort, able to speak in complete sentences and no respiratory distress GI: Inspection: Yes normal to inspection Back/Spine/Pelvis: Cervical Spine: normal cervical lordosis Thoracic/Lumbar Spine: thoracic and lumbar spine normal to inspection Skin: General skin exam: no rashes or lesions noted Neuro: General: patient oriented x3, tone normal and moves all extremities Extrem: General: Yes normal to inspection and Yes capillary refill normal Results Results Labs: Short CBC 01/05/25 Range/Units 10:55 WBC 8.4 (4.8-10.8) X10*3/uL Hgb 11.2 L (14.0-18.0) g/dl Hct 34.1 L D (42.0-52.0) % Plt Count 329 D (160-400) X10*3/uL BMP 01/05/25 10:55 Sodium 143 Potassium 4.9 Chloride 110 H Carbon Dioxide 25 BUN 26 H Creatinine 1.52 H Calcium 9.0 D Liver Function 01/05/25 Range/Units 10:55 Total Bilirubin 0.5 (0.0-1.0) mg/dL AST 31 (5-37) U/L ALT 25 (0-40) U/L Alkaline Phosphatase 98 (39-117) U/L Albumin 3.3 L (3.5-5.0) g/dL Urine 12/29/24 Range/Units 20:25 Urine Color Yellow Urine Appearance Clear Urine pH 5.5 (5.0-9.0) Ur Specific [place] 1.010 (1.005-1.025) Urine Protein 30 (1+) H (Neg-Trace) mg/dL Urine Glucose (UA) Negative (Negative) mg/dL Assessment and Plan (1) Complicated urinary tract infection: Status: Acute Plan Treatment for urinary tract infection while awaiting culture results Observation for possible infected penile implant Quality Stroke Does the patient have a stroke diagnosis?: No VTE Prior VTE?: No VTE Risk Level:: Medical - moderate - high VTE Device Contraindication: Treatment Not Indicated VTE Drug Contraindication: N/A - Med Ordered Procedures Date of Service Date of Service: 01/05/25
--- NOTE | 2025-01-05 14:39 | P.PNUR_ITS ---
Subjective Subjective Date of Service: 01/05/25 Interval history: Long discussion with patient and family today Re capped hospital course Underwent penile prosthetic surgery proximally 2 weeks ago Ravi catheter had been in place for 48 hours as is standard Proximally 4 days later he presented to [facility] with urinary retention Transferred to [facility] last week with Ravi catheter in place Treated with broad-spectrum antibiotics for complicated UTI and concern regarding potential penile prosthetic infection White count has remained low throughout Appeared to be doing well however by morning had significant pain in scrotal area On exam there was concern regarding potential infection Pain persisted over 24 hours. MRI performed late Sunday MRI confirmed penile prosthetic infection Discussed further the role of salvage penile prosthetic replacement with washout In his setting would use malleable prosthetic The company has already been contacted this morning and we will be able to perform the procedure tomorrow afternoon Reiterated the risk of infection in diabetics is a proximally 5% even with use of triple antibiotic protocols involving fluconazole. Physical Exam 2 Vital Signs: Vital Signs: Last Vital Signs Temp 99.2 F 01/05/25 11:58 Pulse 87 01/05/25 11:58 Resp 18 01/05/25 11:58 BP 121/55 L 01/05/25 11:58 Pulse Ox 95 01/05/25 11:58 O2 Del Method Room Air 01/05/25 11:58 O2 Flow Rate 2 12/31/24 03:19 BMI result Body Mass Index 36.5 Const: General: cooperative, healthy appearing, comfortable and no acute distress Orientation/consciousness: patient oriented x3 HEENT: Face and sinus: Yes normal facial exam Mouth: moist mucous membranes Neck: Neck: Yes normal visual inspection, Yes full ROM and Yes trachea midline Chest: Chest palpation & inspection: normal inspection of the chest Resp: Effort & Inspection: normal respiratory effort, able to speak in complete sentences and no respiratory distress GI: Inspection: Yes normal to inspection Back/Spine/Pelvis: Cervical Spine: normal cervical lordosis Thoracic/Lumbar Spine: thoracic and lumbar spine normal to inspection Skin: General skin exam: no rashes or lesions noted Neuro: General: patient oriented x3, tone normal and moves all extremities Extrem: General: Yes normal to inspection and Yes capillary refill normal Urology Results Labs 01/05/25 10:55 01/05/25 10:55 Labs: Laboratory Results - last 24 hr 01/04/25 01/04/2501/05/25 15:47 19:21 07:18 WBC RBC Hgb Hct MCV MCH MCHC RDW Plt Count MPV Immature Gran % (Auto) Neut % (Auto) Lymph % (Auto) [place] % (Auto) Eos % (Auto) Baso % (Auto) Lymph # (Auto) [place] # (Auto) Eos # (Auto) Baso # (Auto) Abs Immat Gran (auto) Absolute Neuts (auto) Absolute Nucleated RBC Nucleated RBC % (auto) Sodium Potassium Chloride Carbon Dioxide Anion Gap BUN Creatinine Estim Creat Clear Calc Estimated GFR POC Glucose 182 H 159 H 140 H Random Glucose Calcium Total Bilirubin AST ALT Alkaline Phosphatase Total Protein Albumin 01/05/25 01/05/25 10:55 11:46 WBC 8.4 RBC 4.08 L Hgb 11.2 L Hct 34.1 L D MCV 83.6 MCH 27.5 MCHC 32.8 RDW 14.8 Plt Count 329 D MPV 9.9 Immature Gran % (Auto) 0.1 Neut % (Auto) 79.5 H Lymph % (Auto) 11.0 L [place] % (Auto) 6.4 Eos % (Auto) 2.6 Baso % (Auto) 0.4 Lymph # (Auto) 0.9 L [place] # (Auto) 0.5 Eos # (Auto) 0.2 Baso # (Auto) 0.0 Abs Immat Gran (auto) 0.01 Absolute Neuts (auto) 6.7 Absolute Nucleated RBC 0.000 Nucleated RBC % (auto) 0.0 Sodium 143 Potassium 4.9 Chloride 110 H Carbon Dioxide 25 Anion Gap 13 BUN 26 H Creatinine 1.52 H Estim Creat Clear Calc 51.4 Estimated GFR 46 POC Glucose 179 H Random Glucose 186 H Calcium 9.0 D Total Bilirubin 0.5 AST 31 ALT 25 Alkaline Phosphatase 98 Total Protein 6.9 Albumin 3.3 L Progress Note: A&P Assessment and plan (1) Complicated urinary tract infection: Status: Acute (2) Infected penile implant: Status: Acute Plan Salvage washout penile prosthetic replacement Risks, benefits and alternatives to therapy were discussed. These include but are not limited to infection, bleeding, damage to local organs and tissues, need for further interventions. Anesthetic risks regarding cardiac arrhythmia, blood clots, and potential mortality were discussed. The patient understands the typical recovery time and the outpatient nature of the procedure. After consideration of these risks the patient gives full informed consent and they wish to move ahead with the procedure. Time Spent With Patient Time: Total time managing care of this patient today ____ minutes. Progress Note: Quality Stroke Does the patient have a stroke diagnosis?: No
--- NOTE | 2025-01-05 14:53 | MHC.CM.PN ---
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
[2025-01-05 16:13] LABS: Glucose, Whole Blood 306 mg/dL (60-115)
[2025-01-05 19:55] LABS: Glucose, Whole Blood 219 mg/dL (60-115)
[2025-01-06] VITALS (12 sets, daily range): BP systolic 111–162; BP diastolic 57–71; PULSE 67–96; RESP 10–18; TEMP 36.1–37.4; O2SAT 94–98
[2025-01-06 07:11] LABS: Glucose, Whole Blood 131 mg/dL (60-115)
--- NOTE | 2025-01-06 07:17 | PC.NURSE ---
Orders from Dr Perea over the phone to hold the lovenox and insulin glargine for the patient due to patient having a surgical procedure this afternoon.
[2025-01-06] MEDS: Aspirin Enteric Coated 81 MG TABLET.DR PO (08:16)
[2025-01-06] MEDS: 0.9 % Sodium Chloride Flush 3 ML SYRINGE IVFLUSH ×2 (08:19→21:04)
--- NOTE | 2025-01-06 09:19 | HO.ANESPROP2 ---
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 No CP or SOB however very minimal activity over past couple weeks. copied from Pre-op done end of November 2024 H/O [place]: last cardiology visit 07/2024, work load note clearing pt for surgery; no changes in cardiac status since procedure 12/22/24. Type 2 DM: A1C 6.7%, on GLP-1, insulin On gabapentin GERD: on PPI Had positive Cardiolite stress test. Dr. Garcia discussed at length w Dr. Ogden by phone. The pt has RCA occlusion w collaterals and is asymptomatic. He says risk is moderate. He spoke w pt at some length about his exerc [place] and his sx. Stair climbing and exerc are limited by hip pain. He doesn't get SOB or chest pain PMFSH Active Problems Active Problems: All Active Problems Infected penile implant (Acute) Complicated urinary tract infection (Acute) Postoperative urinary retention (Acute) Type 2 diabetes mellitus with peripheral neuropathy (Acute) Sepsis (Acute) Bilateral shoulder pain (Acute) S/P right rotator cuff repair (Acute) Polymyalgia (Acute) Stable angina (Acute) Erectile dysfunction associated with type 2 diabetes mellitus (Acute) Tendinosis of right shoulder (Acute) Chronic right shoulder pain (Acute) Injury of right rotator cuff (Acute) Prostatitis (Acute) PVD (peripheral vascular disease) (Acute) Abnormal stress test (Acute) Preop cardiovascular exam (Acute) CAD (coronary artery disease) (Acute) Chest pain (Acute) Painful arc syndrome of right shoulder (Acute) Chronic idiopathic constipation (Acute) Tubular adenoma (Acute) Family history of prostate cancer (Acute) Scrotal swelling (Acute) Elevated PSA (Acute) Past Medical History Medical History Arthritis Asthma Peripheral arterial occlusive disease Hyperlipidemia IBS (irritable bowel syndrome) Benign prostatic hyperplasia without lower urinary tract symptoms GERD (gastroesophageal reflux disease) Chronic kidney disease Acute kidney failure Abdominal bloating Painful arc syndrome of right shoulder Chronic idiopathic constipation Tubular adenoma Myocardial infarct, old Diabetes PVD (peripheral vascular disease) CAD (coronary artery disease) Family history of prostate cancer Scrotal swelling Elevated PSA Functional capacity: independent ambulation Family History Family History Maternal Grandmother Diabetes Paternal Grandmother Diabetes Brother Diabetes Mother No problems noted. Father Diabetes Family history of problems with anesthesia: No Surgical History Surgical History Hx of aorto-femoral bypass History of coronary artery stent placement Hx of coronary angioplasty Hx of ligation of vein History of esophagogastroduodenoscopy (EGD) Hx of colonoscopy Hx of arthroscopic knee surgery History of surgery History of vascular surgery History of cardiac cath History of Problems with Anesthesia: No Social History Social History Household Members: Family Housing: Apartment Do you presently have visiting nurse or other home services: No Alcohol intake: never Patient Tobacco Use Status: Former Tobacco user Tobacco use type: Cigarette Years Smoked: 35+ Currently Displaying Signs/Symptoms of Drug Intoxication Withdrawal: No Do you feel safe in your current relationship?: Yes Advance Directives: No Advance Directives Information Provided: Yes Advance Directives on File: No Do you have a plan to hurt others: No Plan service: No Current occupational status: disabled Current occupation: right hand dominant Meds Allergies Allergy/AdvReac Type Severity Reaction Status Date / Time No Known Allergies Allergy Verified 12/22/24 06:19 Active Medications: Current Medications Acetaminophen (Acetaminophen 325 Mg Tablet) 650 mg PO Q6H PRN PRN Reason: Pain, Mild 1-3,fever,headache Last Admin: 01/02/25 07:57 Dose: 650 mg Amlodipine Besylate (Amlodipine Besylate 10 Mg Tablet) 10 mg PO DAILY [facility]; Protocol Last Admin: 01/06/25 08:16 Dose: 10 mg Aspirin (Aspirin Enteric Coated 81 Mg Tablet.) 81 mg PO DAILY [facility] Last Admin: 01/06/25 08:16 Dose: 81 mg Atorvastatin Calcium (Atorvastatin Calcium 80 Mg Tablet) 80 mg PO BEDTIME [facility] Last Admin: 01/05/25 20:39 Dose: 80 mg Budesonide (Budesonide 0.5 Mg/2 Ml Ampul.Neb) 0.5 mg INHALE RBID [facility] Last Admin: 01/06/25 08:36 Dose: 0.5 mg Calcium Carbonate (Calcium Carbonate 750 Mg Tab.Chew) 750 mg PO Q4H PRN PRN Reason: Heartburn Carvedilol (Carvedilol 12.5 Mg Tablet) 12.5 mg PO BID [facility] Last Admin: 01/06/25 08:16 Dose: 12.5 mg Cilostazol (Cilostazol 100 Mg Tablet) 100 mg PO BID [facility] Last Admin: 01/06/25 08:16 Dose: 100 mg Dextrose (Dextrose 50 % 25 Gm/50 Ml Syringe) 25 gm IVPUSH Q15M PRN; Protocol PRN Reason: per Hypoglycemia Standing Ord. Enoxaparin Sodium (Enoxaparin Sodium 40 Mg/0.4 Ml Syringe) 40 mg SUBCUT Q24H [facility] Last Admin: 01/06/25 07:19 Dose: Not Given Famotidine (Famotidine 20 Mg Tablet) 20 mg PO BEDTIME [facility] Last Admin: 01/05/25 20:39 Dose: 20 mg Gabapentin (Gabapentin 300 Mg Capsule) 300 mg PO DAILY [facility] Last Admin: 01/06/25 08:15 Dose: 300 mg Gabapentin (Gabapentin 300 Mg Capsule) 600 mg PO BEDTIME [facility] Last Admin: 01/05/25 20:39 Dose: 600 mg Glucose (Glucose Gel 15 Gm Gel..Gram.) 15 gm PO Q15M PRN; Protocol PRN Reason: per Hypoglycemia Standing Ord. Piperacillin Sod/Tazobactam (Sod 3.375 gm/ Sodium Chloride) 50 mls @ 100 mls/hr IV Q8H [facility] Last Infusion: 01/06/25 03:46 Dose: Infused Insulin Glargine (Insulin Glargine,Hum.Rec.Anlog 100 Unit/Ml 10 Ml Vial) 34 unit SUBCUT DAILY [facility] Last Admin: 01/06/25 07:20 Dose: Not Given Insulin Human Lispro (Insulin Lispro 100 Unit/Ml 3 Ml Vial) 0 unit SUBCUT QIDACHS [facility]; Protocol Last Admin: 01/06/25 07:12 Dose: Not Given Levofloxacin (Levofloxacin 750 Mg Tablet) 750 mg PO Q48H [facility] Last Admin: 01/05/25 11:52 Dose: 750 mg Lidocaine (Lidocaine 4 % Patch Adh..Patch) 1 patch TRANSDERMA DAILY PRN PRN Reason: Pain Last Admin: 01/03/25 20:47 Dose: 1 patch Magnesium Hydroxide (Milk Of Magnesia 30 Ml Oral.Susp) 30 ml PO DAILY PRN PRN Reason: Constipation Melatonin (Melatonin 3 Mg Tablet) 6 mg PO BEDTIME PRN PRN Reason: Insomnia Last Admin: 01/02/25 20:58 Dose: 6 mg Morphine Sulfate (Morphine Sulfate 4 Mg/Ml Cartridge) 4 mg IVPUSH Q4H PRN; Protocol PRN Reason: Pain, Severe (Pain Scale 7-10) Last Admin: 01/06/25 06:12 Dose: 4 mg Omeprazole (Omeprazole 20 Mg Capsule.Dr) 20 mg PO DAILY@0630 [facility] Last Admin: 01/06/25 05:32 Dose: Not Given Risperidone (Risperidone 3 Mg Tablet) 3 mg PO BEDTIME [facility] Last Admin: 01/05/25 20:39 Dose: 3 mg Sodium Chloride (0.9 % Sodium Chloride Flush 3 Ml Syringe) 3 ml IVFLUSH QSHIFT [facility] Last Admin: 01/06/25 08:19 Dose: 3 ml Home Medications ?Medication ?Instructions ?Recorded ?Confirmed ?Last Taken ?Type aspirin 81 mg tablet,delayed 81 mg PO DAILY 11/11/20 12/29/24 12/11/24 History release (Adult Low Dose Aspirin) atorvastatin 80 mg tablet 80 mg PO BEDTIME 11/11/20 12/29/24 03/08/22 History blood sugar diagnostic (FreeStyle #10 ea 11/11/20 12/24/24 Unknown History Lite Strips) glucose 4 gram chewable tablet 8 g PO Q15M PRN Hypoglycemia 11/11/20 12/29/24 Unknown History (Dex4 Glucose) gabapentin 300 mg capsule 300 mg PO DAILY 07/12/21 12/29/24 12/22/24 05:00 History lancets 28 gauge (TRUEplus Lancets) #100 ea 07/12/21 12/24/24 Unknown History pen needle, diabetic 32 gauge x #50 ea 07/12/21 12/24/24 Unknown History (Pentips Pen Needle) risperidone 3 mg tablet 3 mg PO BEDTIME 07/12/21 12/29/24 Unknown History tirzepatide 5 mg/0.5 mL 5 mg subcut TH@0900 12/29/22 12/29/24 12/11/24 History subcutaneous pen injector (Karla) tramadol 50 mg tablet 50 mg PO Q8H PRN severe pain 12/22/24 12/29/24 Unknown History acetaminophen 650 mg 1,300 mg PO Q8H PRN pain 12/29/24 12/29/24 Unknown History tablet,extended release amlodipine 10 mg tablet 10 mg PO DAILY 12/29/24 12/29/24 Unknown History carvedilol 12.5 mg tablet 12.5 mg PO BID 12/29/24 12/29/24 Unknown History cilostazol 100 mg tablet 100 mg PO BID 12/29/24 12/29/24 Unknown History gabapentin 300 mg capsule 600 mg PO BEDTIME 12/29/24 12/29/24 Unknown History insulin glargine 100 unit/mL (3 35 unit subcut BEDTIME 12/29/24 12/29/24 Unknown History mL) subcutaneous pen (Lantus Solostar U-100 Insulin) lidocaine 5 % topical patch 1 patch topical DAILY PRN Pain 12/29/24 12/29/24 Unknown History Exam Height,Weight and Vital Signs: Height 5 ft 4 in Weight 96.5 kg Last Vital Signs Temp 96.9 F 01/06/25 06:47 Pulse 72 01/06/25 08:37 Resp 16 01/06/25 08:37 BP 122/58 L 01/06/25 06:47 Pulse Ox 95 01/06/25 06:47 O2 Del Method Room Air 01/06/25 06:47 O2 Flow Rate 2 12/31/24 03:19 Pertinent Lab Results Pertinent Lab Results: Laboratory Tests 12/29/24 12/29/24 12/29/24 19:26 20:25 20:33 WBC RBC Hgb Hct MCV MCH MCHC RDW Plt Count MPV Immature Gran % (Auto) Neut % (Auto) Lymph % (Auto) Leon % (Auto) Eos % (Auto) Baso % (Auto) Lymph # (Auto) Leon # (Auto) Eos # (Auto) Baso # (Auto) Abs Immat Gran (auto) Absolute Neuts (auto) Absolute Nucleated RBC Nucleated RBC % (auto) Hold Purple Top SEE NOTE Hold Blue Top SEE NOTE Sodium Potassium Chloride Carbon Dioxide Anion Gap BUN Creatinine 1.41 H Estim Creat Clear Calc 55.4 Estimated GFR 51 POC Glucose 151 H Random Glucose Calcium Total Bilirubin AST ALT Alkaline Phosphatase B-Natriuretic Peptide Total Protein Albumin Hold Yellow Top See Note Urine Color Yellow Urine Appearance Clear Urine pH 5.5 Ur Specific [place] 1.010 Urine Protein 30 (1+) H Urine Glucose (UA) Negative Urine Ketones Negative Urine Blood Trace H Urine Nitrite Negative Ur Leukocyte Esterase Trace H Urine RBC 0-2 Urine WBC 0-5 Ur Squamous Epith Cells 0-2 Urine Bacteria None Seen Hyaline Casts 0-2 Random Vancomycin 12/30/24 12/30/24 12/30/24 06:00 06:01 06:01 WBC 5.7 RBC 3.41 L D Hgb 9.4 L D Hct 27.8 L D MCV 81.5 MCH 27.6 MCHC 33.8 RDW 14.5 Plt Count 230 MPV 10.6 Immature Gran % (Auto) 0.4 Neut % (Auto) 70.7 Lymph % (Auto) 14.6 L Leon % (Auto) 9.7 Eos % (Auto) 4.2 H Baso % (Auto) 0.4 Lymph # (Auto) 0.8 L Leon # (Auto) 0.6 Eos # (Auto) 0.2 Baso # (Auto) 0.0 Abs Immat Gran (auto) 0.02 Absolute Neuts (auto) 4.0 Absolute Nucleated RBC 0.000 Nucleated RBC % (auto) 0.0 Hold Purple Top Hold Blue Top Sodium 141 Potassium 3.8 Chloride 109 H Carbon Dioxide 24 Anion Gap 12 BUN 25 H Creatinine 1.43 H 1.36 Estim Creat Clear Calc 54.7 Estimated GFR POC Glucose Random Glucose Calcium Total Bilirubin AST ALT Alkaline Phosphatase B-Natriuretic Peptide 307 H Total Protein Albumin Hold Yellow Top Urine Color Urine Appearance Urine pH Ur Specific [place] Urine Protein Urine Glucose (UA) Urine Ketones Urine Blood Urine Nitrite Ur Leukocyte Esterase Urine RBC Urine WBC Ur Squamous Epith Cells Urine Bacteria Hyaline Casts Random Vancomycin 12/30/24 12/30/24 12/30/24 06:01 06:01 07:16 WBC RBC Hgb Hct MCV MCH MCHC RDW Plt Count MPV Immature Gran % (Auto) Neut % (Auto) Lymph % (Auto) Leon % (Auto) Eos % (Auto) Baso % (Auto) Lymph # (Auto) Leon # (Auto) Eos # (Auto) Baso # (Auto) Abs Immat Gran (auto) Absolute Neuts (auto) Absolute Nucleated RBC Nucleated RBC % (auto) Hold Purple Top Hold Blue Top Sodium Potassium Chloride Carbon Dioxide Anion Gap BUN Creatinine Estim Creat Clear Calc 57.5 Estimated GFR 50 53 POC Glucose 151 H Random Glucose 174 H Calcium 7.8 L D Total Bilirubin AST ALT Alkaline Phosphatase B-Natriuretic Peptide Total Protein Albumin Hold Yellow Top Urine Color Urine Appearance Urine pH Ur Specific [place] Urine Protein Urine Glucose (UA) Urine Ketones Urine Blood Urine Nitrite Ur Leukocyte Esterase Urine RBC Urine WBC Ur Squamous Epith Cells Urine Bacteria Hyaline Casts Random Vancomycin 12/30/24 12/30/24 12/30/24 10:58 16:19 19:28 WBC RBC Hgb Hct MCV MCH MCHC RDW Plt Count MPV Immature Gran % (Auto) Neut % (Auto) Lymph % (Auto) Leon % (Auto) Eos % (Auto) Baso % (Auto) Lymph # (Auto) Leon # (Auto) Eos # (Auto) Baso # (Auto) Abs Immat Gran (auto) Absolute Neuts (auto) Absolute Nucleated RBC Nucleated RBC % (auto) Hold Purple Top Hold Blue Top Sodium Potassium Chloride Carbon Dioxide Anion Gap BUN Creatinine Estim Creat Clear Calc Estimated GFR POC Glucose 180 H 106 152 H Random Glucose Calcium Total Bilirubin AST ALT Alkaline Phosphatase B-Natriuretic Peptide Total Protein Albumin Hold Yellow Top Urine Color Urine Appearance Urine pH Ur Specific [place] Urine Protein Urine Glucose (UA) Urine Ketones Urine Blood Urine Nitrite Ur Leukocyte Esterase Urine RBC Urine WBC Ur Squamous Epith Cells Urine Bacteria Hyaline Casts Random Vancomycin 12/31/24 12/31/24 12/31/24 05:25 07:32 11:23 WBC RBC Hgb Hct MCV MCH MCHC RDW Plt Count MPV Immature Gran % (Auto) Neut % (Auto) Lymph % (Auto) Leon % (Auto) Eos % (Auto) Baso % (Auto) Lymph # (Auto) Leon # (Auto) Eos # (Auto) Baso # (Auto) Abs Immat Gran (auto) Absolute Neuts (auto) Absolute Nucleated RBC Nucleated RBC % (auto) Hold Purple Top SEE NOTE Hold Blue Top Sodium Potassium Chloride Carbon Dioxide Anion Gap BUN Creatinine 1.38 Estim Creat Clear Calc 56.6 Estimated GFR 52 POC Glucose 98 189 H Random Glucose Calcium Total Bilirubin AST ALT Alkaline Phosphatase B-Natriuretic Peptide Total Protein Albumin Hold Yellow Top Urine Color Urine Appearance Urine pH Ur Specific [place] Urine Protein Urine Glucose (UA) Urine Ketones Urine Blood Urine Nitrite Ur Leukocyte Esterase Urine RBC Urine WBC Ur Squamous Epith Cells Urine Bacteria Hyaline Casts Random Vancomycin 12/31/24 12/31/24 12/31/24 16:05 18:13 19:53 WBC RBC Hgb Hct MCV MCH MCHC RDW Plt Count MPV Immature Gran % (Auto) Neut % (Auto) Lymph % (Auto) Leon % (Auto) Eos % (Auto) Baso % (Auto) Lymph # (Auto) Leon # (Auto) Eos # (Auto) Baso # (Auto) Abs Immat Gran (auto) Absolute Neuts (auto) Absolute Nucleated RBC Nucleated RBC % (auto) Hold Purple Top Hold Blue Top Sodium Potassium Chloride Carbon Dioxide Anion Gap BUN Creatinine Estim Creat Clear Calc Estimated GFR POC Glucose 218 H 146 H Random Glucose Calcium Total Bilirubin AST ALT Alkaline Phosphatase B-Natriuretic Peptide Total Protein Albumin Hold Yellow Top Urine Color Urine Appearance Urine pH Ur Specific [place] Urine Protein Urine Glucose (UA) Urine Ketones Urine Blood Urine Nitrite Ur Leukocyte Esterase Urine RBC Urine WBC Ur Squamous Epith Cells Urine Bacteria Hyaline Casts Random Vancomycin 16.5 01/01/25 01/01/25 01/01/25 05:28 07:15 11:16 WBC RBC Hgb Hct MCV MCH MCHC RDW Plt Count MPV Immature Gran % (Auto) Neut % (Auto) Lymph % (Auto) Leon % (Auto) Eos % (Auto) Baso % (Auto) Lymph # (Auto) Leon # (Auto) Eos # (Auto) Baso # (Auto) Abs Immat Gran (auto) Absolute Neuts (auto) Absolute Nucleated RBC Nucleated RBC % (auto) Hold Purple Top SEE NOTE Hold Blue Top Sodium Potassium Chloride Carbon Dioxide Anion Gap BUN Creatinine 1.62 H Estim Creat Clear Calc 48.2 Estimated GFR 43 POC Glucose 116 H 179 H Random Glucose Calcium Total Bilirubin AST ALT Alkaline Phosphatase B-Natriuretic Peptide Total Protein Albumin Hold Yellow Top Urine Color Urine Appearance Urine pH Ur Specific [place] Urine Protein Urine Glucose (UA) Urine Ketones Urine Blood Urine Nitrite Ur Leukocyte Esterase Urine RBC Urine WBC Ur Squamous Epith Cells Urine Bacteria Hyaline Casts Random Vancomycin 01/01/25 01/01/25 01/02/25 16:03 19:49 05:24 WBC RBC Hgb Hct MCV MCH MCHC RDW Plt Count MPV Immature Gran % (Auto) Neut % (Auto) Lymph % (Auto) Leon % (Auto) Eos % (Auto) Baso % (Auto) Lymph # (Auto) Leon # (Auto) Eos # (Auto) Baso # (Auto) Abs Immat Gran (auto) Absolute Neuts (auto) Absolute Nucleated RBC Nucleated RBC % (auto) Hold Purple Top SEE NOTE Hold Blue Top Sodium 142 Potassium 4.1 Chloride 111 H Carbon Dioxide 22 Anion Gap 13 BUN 27 H Creatinine 1.67 H Estim Creat Clear Calc 46.8 Estimated GFR 42 POC Glucose 174 H 146 H Random Glucose 131 H Calcium 8.4 D Total Bilirubin AST ALT Alkaline Phosphatase B-Natriuretic Peptide Total Protein Albumin Hold Yellow Top Urine Color Urine Appearance Urine pH Ur Specific [place] Urine Protein Urine Glucose (UA) Urine Ketones Urine Blood Urine Nitrite Ur Leukocyte Esterase Urine RBC Urine WBC Ur Squamous Epith Cells Urine Bacteria Hyaline Casts Random Vancomycin 01/02/25 01/02/25 01/02/25 07:32 11:25 16:24 WBC RBC Hgb Hct MCV MCH MCHC RDW Plt Count MPV Immature Gran % (Auto) Neut % (Auto) Lymph % (Auto) Leon % (Auto) Eos % (Auto) Baso % (Auto) Lymph # (Auto) Leon # (Auto) Eos # (Auto) Baso # (Auto) Abs Immat Gran (auto) Absolute Neuts (auto) Absolute Nucleated RBC Nucleated RBC % (auto) Hold Purple Top Hold Blue Top Sodium Potassium Chloride Carbon Dioxide Anion Gap BUN Creatinine Estim Creat Clear Calc Estimated GFR POC Glucose 128 H 198 H 188 H Random Glucose Calcium Total Bilirubin AST ALT Alkaline Phosphatase B-Natriuretic Peptide Total Protein Albumin Hold Yellow Top Urine Color Urine Appearance Urine pH Ur Specific [place] Urine Protein Urine Glucose (UA) Urine Ketones Urine Blood Urine Nitrite Ur Leukocyte Esterase Urine RBC Urine WBC Ur Squamous Epith Cells Urine Bacteria Hyaline Casts Random Vancomycin 01/02/25 01/03/25 01/03/25 20:12 07:22 11:14 WBC RBC Hgb Hct MCV MCH MCHC RDW Plt Count MPV Immature Gran % (Auto) Neut % (Auto) Lymph % (Auto) Leon % (Auto) Eos % (Auto) Baso % (Auto) Lymph # (Auto) Leon # (Auto) Eos # (Auto) Baso # (Auto) Abs Immat Gran (auto) Absolute Neuts (auto) Absolute Nucleated RBC Nucleated RBC % (auto) Hold Purple Top Hold Blue Top Sodium Potassium Chloride Carbon Dioxide Anion Gap BUN Creatinine Estim Creat Clear Calc Estimated GFR POC Glucose 237 H 141 H 218 H Random Glucose Calcium Total Bilirubin AST ALT Alkaline Phosphatase B-Natriuretic Peptide Total Protein Albumin Hold Yellow Top Urine Color Urine Appearance Urine pH Ur Specific [place] Urine Protein Urine Glucose (UA) Urine Ketones Urine Blood Urine Nitrite Ur Leukocyte Esterase Urine RBC Urine WBC Ur Squamous Epith Cells Urine Bacteria Hyaline Casts Random Vancomycin 01/03/25 01/03/25 01/04/25 16:05 20:07 07:13 WBC RBC Hgb Hct MCV MCH MCHC RDW Plt Count MPV Immature Gran % (Auto) Neut % (Auto) Lymph % (Auto) Leon % (Auto) Eos % (Auto) Baso % (Auto) Lymph # (Auto) Leon # (Auto) Eos # (Auto) Baso # (Auto) Abs Immat Gran (auto) Absolute Neuts (auto) Absolute Nucleated RBC Nucleated RBC % (auto) Hold Purple Top Hold Blue Top Sodium Potassium Chloride Carbon Dioxide Anion Gap BUN Creatinine Estim Creat Clear Calc Estimated GFR POC Glucose 126 H 138 H 124 H Random Glucose Calcium Total Bilirubin AST ALT Alkaline Phosphatase B-Natriuretic Peptide Total Protein Albumin Hold Yellow Top Urine Color Urine Appearance Urine pH Ur Specific [place] Urine Protein Urine Glucose (UA) Urine Ketones Urine Blood Urine Nitrite Ur Leukocyte Esterase Urine RBC Urine WBC Ur Squamous Epith Cells Urine Bacteria Hyaline Casts Random Vancomycin 01/04/25 01/04/25 01/04/25 10:58 15:47 19:21 WBC RBC Hgb Hct MCV MCH MCHC RDW Plt Count MPV Immature Gran % (Auto) Neut % (Auto) Lymph % (Auto) Leon % (Auto) Eos % (Auto) Baso % (Auto) Lymph # (Auto) Leon # (Auto) Eos # (Auto) Baso # (Auto) Abs Immat Gran (auto) Absolute Neuts (auto) Absolute Nucleated RBC Nucleated RBC % (auto) Hold Purple Top Hold Blue Top Sodium Potassium Chloride Carbon Dioxide Anion Gap BUN Creatinine Estim Creat Clear Calc Estimated GFR POC Glucose 175 H 182 H 159 H Random Glucose Calcium Total Bilirubin AST ALT Alkaline Phosphatase B-Natriuretic Peptide Total Protein Albumin Hold Yellow Top Urine Color Urine Appearance Urine pH Ur Specific [place] Urine Protein Urine Glucose (UA) Urine Ketones Urine Blood Urine Nitrite Ur Leukocyte Esterase Urine RBC Urine WBC Ur Squamous Epith Cells Urine Bacteria Hyaline Casts Random Vancomycin 01/05/25 01/05/25 01/05/25 07:18 10:55 11:46 WBC 8.4 RBC 4.08 L Hgb 11.2 L Hct 34.1 L D MCV 83.6 MCH 27.5 MCHC 32.8 RDW 14.8 Plt Count 329 D MPV 9.9 Immature Gran % (Auto) 0.1 Neut % (Auto) 79.5 H Lymph % (Auto) 11.0 L Leon % (Auto) 6.4 Eos % (Auto) 2.6 Baso % (Auto) 0.4 Lymph # (Auto) 0.9 L Leon # (Auto) 0.5 Eos # (Auto) 0.2 Baso # (Auto) 0.0 Abs Immat Gran (auto) 0.01 Absolute Neuts (auto) 6.7 Absolute Nucleated RBC 0.000 Nucleated RBC % (auto) 0.0 Hold Purple Top Hold Blue Top Sodium 143 Potassium 4.9 Chloride 110 H Carbon Dioxide 25 Anion Gap 13 BUN 26 H Creatinine 1.52 H Estim Creat Clear Calc 51.4 Estimated GFR 46 POC Glucose 140 H 179 H Random Glucose 186 H Calcium 9.0 D Total Bilirubin 0.5 AST 31 ALT 25 Alkaline Phosphatase 98 B-Natriuretic Peptide Total Protein 6.9 Albumin 3.3 L Hold Yellow Top Urine Color Urine Appearance Urine pH Ur Specific [place] Urine Protein Urine Glucose (UA) Urine Ketones Urine Blood Urine Nitrite Ur Leukocyte Esterase Urine RBC Urine WBC Ur Squamous Epith Cells Urine Bacteria Hyaline Casts Random Vancomycin 01/05/25 01/05/25 01/06/25 16:04 19:50 07:07 WBC RBC Hgb Hct MCV MCH MCHC RDW Plt Count MPV Immature Gran % (Auto) Neut % (Auto) Lymph % (Auto) Leon % (Auto) Eos % (Auto) Baso % (Auto) Lymph # (Auto) Leon # (Auto) Eos # (Auto) Baso # (Auto) Abs Immat Gran (auto) Absolute Neuts (auto) Absolute Nucleated RBC Nucleated RBC % (auto) Hold Purple Top Hold Blue Top Sodium Potassium Chloride Carbon Dioxide Anion Gap BUN Creatinine Estim Creat Clear Calc Estimated GFR POC Glucose 306 H 219 H 131 H Random Glucose Calcium Total Bilirubin AST ALT Alkaline Phosphatase B-Natriuretic Peptide Total Protein Albumin Hold Yellow Top Urine Color Urine Appearance Urine pH Ur Specific [place] Urine Protein Urine Glucose (UA) Urine Ketones Urine Blood Urine Nitrite Ur Leukocyte Esterase Urine RBC Urine WBC Ur Squamous Epith Cells Urine Bacteria Hyaline Casts Random Vancomycin Narrative Narrative: EKG 11/2024 NSR, rate 76, no acute ST-T wave changes. Airway Heart: RRR Lungs: CTAB Assessment and Plan Final Anesthetic Review Family History of Problems with Anesthesia: No History of Problems with Anesthesia: No Documented by User: Randy Nicholas MD 01/06/25 16:30 [facility] Past Medical History Medical History Arthritis Asthma Peripheral arterial occlusive disease Hyperlipidemia IBS (irritable bowel syndrome) Benign prostatic hyperplasia without lower urinary tract symptoms GERD (gastroesophageal reflux disease) Chronic kidney disease Acute kidney failure Abdominal bloating Painful arc syndrome of right shoulder Chronic idiopathic constipation Tubular adenoma Myocardial infarct, old Diabetes PVD (peripheral vascular disease) CAD (coronary artery disease) Family history of prostate cancer Scrotal swelling Elevated PSA Family History Family History Maternal Grandmother Diabetes Paternal Grandmother Diabetes Brother Diabetes Mother No problems noted. Father Diabetes Surgical History Surgical History Hx of aorto-femoral bypass History of coronary artery stent placement Hx of coronary angioplasty Hx of ligation of vein History of esophagogastroduodenoscopy (EGD) Hx of colonoscopy Hx of arthroscopic knee surgery History of surgery History of vascular surgery History of cardiac cath Social History Social History Household Members: Family Housing: Apartment Do you presently have visiting nurse or other home services: No Alcohol intake: never Patient Tobacco Use Status: Former Tobacco user Tobacco use type: Cigarette Years Smoked: 35+ Currently Displaying Signs/Symptoms of Drug Intoxication Withdrawal: No Do you feel safe in your current relationship?: Yes Advance Directives: No Advance Directives Information Provided: Yes Advance Directives on File: No Do you have a plan to hurt others: No Plan service: No Current occupational status: disabled Current occupation: right hand dominant Meds Allergies Allergy/AdvReac Type Severity Reaction Status Date / Time No Known Allergies Allergy Verified 12/22/24 06:19 Home Medications ?Medication ?Instructions ?Recorded ?Confirmed ?Last Taken ?Type aspirin 81 mg tablet,delayed 81 mg PO DAILY 11/11/20 12/29/24 12/11/24 History release (Adult Low Dose Aspirin) atorvastatin 80 mg tablet 80 mg PO BEDTIME 11/11/20 12/29/24 03/08/22 History blood sugar diagnostic (FreeStyle #10 ea 11/11/20 12/24/24 Unknown History Lite Strips) glucose 4 gram chewable tablet 8 g PO Q15M PRN Hypoglycemia 11/11/20 12/29/24 Unknown History (Dex4 Glucose) gabapentin 300 mg capsule 300 mg PO DAILY 07/12/21 12/29/24 12/22/24 05:00 History lancets 28 gauge (TRUEplus Lancets) #100 ea 07/12/21 12/24/24 Unknown History pen needle, diabetic 32 gauge x #50 ea 07/12/21 12/24/24 Unknown History / (Pentips Pen Needle) risperidone 3 mg tablet 3 mg PO BEDTIME 07/12/21 12/29/24 Unknown History tirzepatide 5 mg/0.5 mL 5 mg subcut TH@0900 12/29/22 12/29/24 12/11/24 History subcutaneous pen injector (Karla) tramadol 50 mg tablet 50 mg PO Q8H PRN severe pain 12/22/24 12/29/24 Unknown History acetaminophen 650 mg 1,300 mg PO Q8H PRN pain 12/29/24 12/29/24 Unknown History tablet,extended release amlodipine 10 mg tablet 10 mg PO DAILY 12/29/24 12/29/24 Unknown History carvedilol 12.5 mg tablet 12.5 mg PO BID 12/29/24 12/29/24 Unknown History cilostazol 100 mg tablet 100 mg PO BID 12/29/24 12/29/24 Unknown History gabapentin 300 mg capsule 600 mg PO BEDTIME 12/29/24 12/29/24 Unknown History insulin glargine 100 unit/mL (3 35 unit subcut BEDTIME 12/29/24 12/29/24 Unknown History mL) subcutaneous pen (Lantus Solostar U-100 Insulin) lidocaine 5 % topical patch 1 patch topical DAILY PRN Pain 12/29/24 12/29/24 Unknown History Assessment and Plan Assessment Anesthesia Assessment: Anesthesia Plan Discussed and Chart Reviewed Final Anesthetic Review NPO: Yes ASA Class: III and Emergency Final Preanesthetic Review: No Changes in Pt Med Stat, Meds/Allgs Chart Reviewed, Consent Obtained/Reviewed and Anes Risks/Benef Reviewed Patient Risk: Intermediate Procedure Risk: Low Anesthetic Plan Anesthetic Plan: GA Disposition: Standard PACU
[2025-01-06 11:08] LABS: Glucose, Whole Blood 147 mg/dL (60-115)
[2025-01-06 15:21] LABS: Glucose, Whole Blood 124 mg/dL (60-115)
--- NOTE | 2025-01-06 16:05 | P.PNUR_ITS ---
Subjective Subjective Date of Service: 01/06/25 Interval history: Seen today accompanied by family Plan for prosthetic explant with washout and possible salvage Based on discussion between Osvaldo and his family he does not wish to proceed with reimplantation Primary concern is the scrotal pain secondary to abscess This area will be drained during washout and likely drain will be left in place Physical Exam 2 Vital Signs: Vital Signs: Last Vital Signs Temp 99.3 F 01/06/25 15:10 Pulse 77 01/06/25 15:10 Resp 17 01/06/25 15:10 BP 162/69 H 01/06/25 15:10 Pulse Ox 94 01/06/25 15:10 O2 Del Method Room Air 01/06/25 15:10 O2 Flow Rate 2 12/31/24 03:19 BMI result Body Mass Index 36.5 Const: General: cooperative, healthy appearing, comfortable and no acute distress Orientation/consciousness: patient oriented x3 HEENT: Face and sinus: Yes normal facial exam Mouth: moist mucous membranes Neck: Neck: Yes normal visual inspection, Yes full ROM and Yes trachea midline Chest: Chest palpation & inspection: normal inspection of the chest Resp: Effort & Inspection: normal respiratory effort, able to speak in complete sentences and no respiratory distress GI: Inspection: Yes normal to inspection Back/Spine/Pelvis: Cervical Spine: normal cervical lordosis Thoracic/Lumbar Spine: thoracic and lumbar spine normal to inspection Skin: General skin exam: no rashes or lesions noted Neuro: General: patient oriented x3, tone normal and moves all extremities Extrem: General: Yes normal to inspection and Yes capillary refill normal Urology Results Labs 01/05/25 10:55 01/05/25 10:55 Labs: Laboratory Results - last 24 hr 01/05/25 01/05/25 01/06/25 16:04 19:50 07:07 POC Glucose 306 H 219 H 131 H 01/06/25 01/06/25 11:05 15:17 POC Glucose 147 H 124 H Progress Note: A&P Assessment and plan (1) Infected penile implant: Status: Acute Plan Plan for explantation and washout Risks, benefits and alternatives to therapy were discussed. These include but are not limited to infection, bleeding, damage to local organs and tissues, need for further interventions. Anesthetic risks regarding cardiac arrhythmia, blood clots, and potential mortality were discussed. The patient understands the typical recovery time and the outpatient nature of the procedure. After consideration of these risks the patient gives full informed consent and they wish to move ahead with the procedure. Time Spent With Patient Time: Total time managing care of this patient today ____ minutes. Progress Note: Quality Stroke Does the patient have a stroke diagnosis?: No
--- NOTE | 2025-01-06 16:05 | MHC.SHP ---
Pre-Procedural Eval Section A - 24 Hr Update-Section A only Date of Service: 01/06/25 The patient is an INPATIENT: Yes Changes since office visit: No Cold of Flu in the past 2 weeks, No New Medical Problems, No Changes in Medication and No Patient answered all questions The patient has been examined within 24 hours of the surgical procedure. The History & Physical has been completed within 30 days and I have reviewed it.: Yes Section B - Complete if H&P > 30 days Chief Complaint: Urinary retention with urosepsis Details of Present Illness: penile prosthesis explant and washout Allergies: Allergies Allergy/AdvReac Type Severity Reaction Status Date / Time No Known Allergies Allergy Verified 12/22/24 06:19 Plan I have reviewed the history and physical and performed a pertinent physical examination on my patient. No changes have occurred unless specified. Time Spent With Patient Time: Total time managing care of this patient today ____ minutes.
--- NOTE | 2025-01-06 17:35 | P.OP_ITS ---
Operative Note Operative Note Date of Service: 01/06/25 Narrative: PreOperative Diagnosis: Penile prosthetic Post Operative Diagnosis: Infected penile prosthetic Procedure: Removal of infected penile prosthetic Surgeon: Dr Sachin Oswald Anesthesia: General Indications for procedure: Patient had prosthetic placed proximally 2 weeks ago. Subsequently experienced urinary retention with 1 L of urine. Seen and Ravi catheter had been placed. Subsequently started to develop pain and discomfort on the penis. Initial CT negative. Follow-up MRI 5 days later showed fluid around prosthetic consistent with infection. This brought for removal secondary to pain. White count initially 11.7 currently 8.4. Procedure: After informed consent was verified the patient was brought to the operating room and placed in a supine position. Anesthesia was administered per protocol. The patient was prepped and draped in a sterile fashion. Safety pause time-out was performed. Antibiotics being given. The initial indwelling Ravi catheter be removed prior to procedure. Penis had moderate edema. The prior mid line penoscrotal incision was reopened. Dissection was performed into the space that had been created for the components of the prosthetic. There was no evidence of any purulent material. A microbiology swab was taken of the fluid that was in the area. The bulb and pump mechanism were isolated and removed first. The corporal body tubing was followed and a small incision made to allow removal of each inflatable component. Again no purulent material was noted. The left component was removed 1st followed by the right component. At this point clamps were placed over the tubing to the reservoir and the tubing was cut. The reservoir was allowed to deflate. The reservoir was then removed through the inguinal tunnel. Irrigation with plain saline was performed into the corporal bodies. At this point the power jockey valet was used with a combination gentamicin and vancomycin in order to irrigate Ravi the wound. Approximately 2 L was used for irrigation. A 50 50 mixture of saline and iodine was then used to irrigate out the corporal bodies and through the scrotum. A fresh 16 Kinyarwanda Ravi catheter was placed on the field. Small bleeding areas were addressed. The most significant ooze came from the edges of the corporal body incision on the right side. These were closed with a figure of 8 suture. Once adequate hemostasis was obtained a decision was made to place a Clinton drain. A Clinton drain was brought out through the dependent portion of the scrotum. The drain was affixed using a 2-0 nylon suture. 3-0 Vicryl sutures were used to perform a 2 layer closure of subcutaneous tissue. Interrupted 3-0 chromic sutures were placed through the incision. A dressing was placed consisting of Telfa followed by fluffs. The patient tolerated the procedure well. Was extubated in the operating room and transferred nurse stable condition to the recovery area Pathology: Swab microbiology performed Drains: Clinton as above
[2025-01-06 20:40] LABS: Glucose, Whole Blood 173 mg/dL (60-115)
[2025-01-07] VITALS (7 sets, daily range): BP systolic 121–158; BP diastolic 58–93; PULSE 78–81; RESP 16–18; TEMP 36.4–37.7; O2SAT 94–97
[2025-01-07 07:54] LABS: Glucose, Whole Blood 175 mg/dL (60-115)
[2025-01-07] MEDS: Aspirin Enteric Coated 81 MG TABLET.DR PO (08:10)
[2025-01-07] MEDS: Insulin Glargine,Hum.rec.anlog 100 UNIT/ML 10 ML VIAL 34 UNIT SUBCUT (08:11)
[2025-01-07] MEDS: 0.9 % Sodium Chloride Flush 3 ML SYRINGE IVFLUSH ×3 (08:12→23:55)
--- NOTE | 2025-01-07 10:07 | HO.POSTANES ---
Post Anesthesia Evaluation Post Anesthesia Evaluation Date of Service: 01/07/25 Vital Signs: Vital Signs Temp Pulse Resp BP Pulse Ox O2 Del Method O2 Flow Rate 01/07/25 08:16 81 16 01/07/25 07:41 97.8 F 81 16 131/60 94 Room Air 01/07/25 04:00 97.6 F 81 16 121/58 L 96 Nasal Cannula 2 Anesthesia: General Mental Status: Awake Pain Control: Satisfactory Nausea/Vomiting: None Hydration: Adequate Anesthesia-Related Issues: No Anes. Related Issues
[2025-01-07 11:30] LABS: Glucose, Whole Blood 172 mg/dL (60-115)
--- NOTE | 2025-01-07 13:30 | MHC.CM.PN ---
EMR REVIEWED. PT IS POD #1 PROSTHETIC EXPORT WITH WASHOUT. CM WILL CONTINUE TO FOLLOW FOR ANY CHANGE IN DC PLAN/NEEDS.
[2025-01-07 16:08] LABS: Glucose, Whole Blood 206 mg/dL (60-115)
--- NOTE | 2025-01-07 17:17 | P.PNUR_ITS ---
Subjective Subjective Date of Service: 01/07/25 Interval history: Postoperative day 1 removal penile prosthetic Swelling reducing Pain better controlled Switch Ravi from continuous drainage to cap with emptying every 4 hours We will review for drainage removal tomorrow Physical Exam 2 Vital Signs: Vital Signs: Last Vital Signs Temp 99.8 F 01/07/25 16:05 Pulse 81 01/07/25 16:05 Resp 18 01/07/25 16:05 BP 158/73 H 01/07/25 16:05 Pulse Ox 96 01/07/25 16:05 O2 Del Method Room Air 01/07/25 16:05 O2 Flow Rate 2 01/07/25 04:00 BMI result Body Mass Index 36.5 Const: General: cooperative, healthy appearing, comfortable and no acute distress Orientation/consciousness: patient oriented x3 HEENT: Face and sinus: Yes normal facial exam Mouth: moist mucous membranes Neck: Neck: Yes normal visual inspection, Yes full ROM and Yes trachea midline Chest: Chest palpation & inspection: normal inspection of the chest Resp: Effort & Inspection: normal respiratory effort, able to speak in complete sentences and no respiratory distress GI: Inspection: Yes normal to inspection Back/Spine/Pelvis: Cervical Spine: normal cervical lordosis Thoracic/Lumbar Spine: thoracic and lumbar spine normal to inspection Skin: General skin exam: no rashes or lesions noted Neuro: General: patient oriented x3, tone normal and moves all extremities Extrem: General: Yes normal to inspection and Yes capillary refill normal Urology Results Labs 01/05/25 10:55 01/05/25 10:55 Labs: Laboratory Results - last 24 hr 01/06/25 01/07/25 01/07/25 20:21 07:45 11:18 POC Glucose 173 H 175 H 172 H 01/07/25 15:57 POC Glucose 206 H Progress Note: A&P Assessment and plan (1) Scrotal swelling: Status: Acute (2) Infected penile implant: Status: Acute Plan If remained stable possible DC tomorrow Time Spent With Patient Time: Total time managing care of this patient today ____ minutes. Progress Note: Quality Stroke Does the patient have a stroke diagnosis?: No
[2025-01-07 21:08] LABS: Glucose, Whole Blood 165 mg/dL (60-115)
[2025-01-08] VITALS (8 sets, daily range): BP systolic 125–139; BP diastolic 63–68; PULSE 75–80; RESP 14–18; TEMP 36.8–37.1; O2SAT 94–95
[2025-01-08 07:31] LABS: Glucose, Whole Blood 160 mg/dL (60-115)
[2025-01-08] MEDS: oxyCODONE HCl Immed Release 5 MG TABLET PO (08:07)
[2025-01-08] MEDS: Aspirin Enteric Coated 81 MG TABLET.DR PO (08:07)
[2025-01-08] MEDS: 0.9 % Sodium Chloride Flush 3 ML SYRINGE IVFLUSH ×2 (08:08→16:48)
[2025-01-08] MEDS: Insulin Glargine,Hum.rec.anlog 100 UNIT/ML 10 ML VIAL 34 UNIT SUBCUT (08:08)
--- NOTE | 2025-01-08 10:02 | P.PNUR_ITS ---
Subjective Subjective Date of Service: 01/08/25 Interval history: Significant improvement in swelling Minimal drainage Will remove drain today Tolerating normal diet Can DC later this afternoon Physical Exam 2 Vital Signs: Vital Signs: Last Vital Signs Temp 98.7 F 01/08/25 03:22 Pulse 75 01/08/25 07:43 Resp 16 01/08/25 07:43 BP 139/68 01/08/25 07:07 Pulse Ox 95 01/08/25 07:07 O2 Del Method Room Air 01/08/25 07:07 O2 Flow Rate 2 01/07/25 04:00 BMI result Body Mass Index 36.5 Const: General: cooperative, healthy appearing, comfortable and no acute distress Orientation/consciousness: patient oriented x3 HEENT: Face and sinus: Yes normal facial exam Mouth: moist mucous membranes Neck: Neck: Yes normal visual inspection, Yes full ROM and Yes trachea midline Chest: Chest palpation & inspection: normal inspection of the chest Resp: Effort & Inspection: normal respiratory effort, able to speak in complete sentences and no respiratory distress GI: Inspection: Yes normal to inspection Back/Spine/Pelvis: Cervical Spine: normal cervical lordosis Thoracic/Lumbar Spine: thoracic and lumbar spine normal to inspection Skin: General skin exam: no rashes or lesions noted Neuro: General: patient oriented x3, tone normal and moves all extremities Extrem: General: Yes normal to inspection and Yes capillary refill normal Urology Results Labs 01/05/25 10:55 01/05/25 10:55 Labs: Laboratory Results - last 24 hr 01/07/25 01/07/25 01/07/25 11:18 15:57 20:59 POC Glucose 172 H 206 H 165 H 01/08/25 07:09 POC Glucose 160 H Progress Note: A&P Assessment and plan (1) Infected penile implant: Status: Acute (2) Complicated urinary tract infection: Status: Acute Plan Plan discharge later this afternoon Time Spent With Patient Time: Total time managing care of this patient today ____ minutes. Progress Note: Quality Stroke Does the patient have a stroke diagnosis?: No
[2025-01-08 11:35] LABS: Glucose, Whole Blood 175 mg/dL (60-115)
--- NOTE | 2025-01-08 14:00 | PC.NURSE ---
Around 13:20 utilized senior property accountant Neel to review catheter care and marc drain. Patient educated on capping catheter, that Provider Oswald ordered to be emptied every 4-6 hours or if uncomfortable/feel the need to urinate. Patient educated on clean/sterile technique when capping and using moon bag and plan for patient to perform next emptying. Patient educated on risks of infection and proper hand hygiene. Patient also educated and encouraged to ambulate, but refused at this time due to pain. Patient educated regarding marc drain. Patient did get up on side of bed and underwear and gauze were changed. Marc drain in place on right side of scrotum and patient educated regarding drain and output monitoring, small bloody drainage at this time.
[2025-01-08 16:24] LABS: Glucose, Whole Blood 214 mg/dL (60-115)
[2025-01-08 20:32] LABS: Glucose, Whole Blood 222 mg/dL (60-115)
[2025-01-09 03:10] VITALS: BP 143/67; PULSE 76; RESP 18; TEMP 36.8; O2SAT 95
[2025-01-09 07:28] VITALS: BP 123/58; PULSE 71; RESP 18; TEMP 36.5; O2SAT 95
[2025-01-09 07:46] LABS: Glucose, Whole Blood 164 mg/dL (60-115)
[2025-01-09 07:47] VITALS: PULSE 72; RESP 16; O2SAT 94
[2025-01-09] MEDS: Aspirin Enteric Coated 81 MG TABLET.DR PO (07:53)
[2025-01-09] MEDS: Insulin Glargine,Hum.rec.anlog 100 UNIT/ML 10 ML VIAL 34 UNIT SUBCUT (07:54)
[2025-01-09] MEDS: 0.9 % Sodium Chloride Flush 3 ML SYRINGE IVFLUSH (07:57)
[2025-01-09 11:23] LABS: Glucose, Whole Blood 159 mg/dL (60-115)
[2025-01-09] MEDS: oxyCODONE HCl Immed Release 5 MG TABLET PO (12:49)
--- NOTE | 2025-01-09 13:09 | P.PNUR_ITS ---
Subjective Subjective Date of Service: 01/09/25 Interval history: Significant reduction in swelling Scrotal drain removed today - at bedside Plan for discharge adjunct faculty used has minimal pain Physical Exam 2 Vital Signs: Vital Signs: Last Vital Signs Temp 97.7 F 01/09/25 07:28 Pulse 72 01/09/25 07:47 Resp 16 01/09/25 07:47 BP 123/58 L 01/09/25 07:28 Pulse Ox 95 01/09/25 07:28 O2 Del Method Room Air 01/09/25 07:28 O2 Flow Rate 2 01/07/25 04:00 BMI result Body Mass Index 36.5 Const: General: cooperative, healthy appearing, comfortable and no acute distress Orientation/consciousness: patient oriented x3 HEENT: Face and sinus: Yes normal facial exam Mouth: moist mucous membranes Neck: Neck: Yes normal visual inspection, Yes full ROM and Yes trachea midline Chest: Chest palpation & inspection: normal inspection of the chest Resp: Effort & Inspection: normal respiratory effort, able to speak in complete sentences and no respiratory distress GI: Inspection: Yes normal to inspection Back/Spine/Pelvis: Cervical Spine: normal cervical lordosis Thoracic/Lumbar Spine: thoracic and lumbar spine normal to inspection Skin: General skin exam: no rashes or lesions noted Neuro: General: patient oriented x3, tone normal and moves all extremities Extrem: General: Yes normal to inspection and Yes capillary refill normal Urology Results Labs 01/05/25 10:55 01/05/25 10:55 Labs: Laboratory Results - last 24 hr 01/08/25 01/08/25 01/09/25 16:18 20:22 07:43 POC Glucose 214 H 222 H 164 H 01/09/25 11:19 POC Glucose 159 H Progress Note: A&P Assessment and plan (1) Scrotal swelling: Status: Acute (2) Postoperative urinary retention: Status: Acute (3) Infected penile implant: Status: Acute Plan Discharge home today Time Spent With Patient Time: Total time managing care of this patient today ____ minutes. Progress Note: Quality Stroke Does the patient have a stroke diagnosis?: No
--- NOTE | 2025-01-09 13:55 | MHC.CM.PN ---
PT CLEARED TO [facility] TODAY WITH NO SERVICES GRANDDAUGHTER TO TRANSPORT AROUND 1430 HOURS
--- NOTE | 2025-01-09 16:29 | P.DS_ITS ---
DS: Providers Provider Date of Service: 12/29/24 Date of admission: 12/29/24 17:43 Date of discharge: 01/09/25 Primary care physician: Jin Rizvi DO Admitting clinician: Sachin Oswald Consults: 12/29/24 17:56 Consult to Hospitalist Routine Comment: Consulting Provider: [facility] [place] [facility] Reason For Exam: insulin and congestive heart failure management DS: Diagnosis Discharge Diagnosis (1) Scrotal swelling: Status: Acute (2) Postoperative urinary retention: Status: Acute (3) Infected penile implant: Status: Acute DS: Summary Hospital Course Hospital Course: Patient underwent penile prosthetic procedure on December 22 Presented to office for catheter and dressing removal on December 24 Then presented to [facility] on December 28 with urinary retention. Ravi catheter placed with 1 L output with possible urinary tract infection. There was noted swelling of penis following procedure. CT scan was performed which showed no evidence of significant abscess or hematoma. Due to clinical concern for infection patient was transferred to [place]. There was gradual improvement over the 1st few days of admission. However pain increased by December. MRI performed late Sunday showed fluid around prosthetic suggestive of possible infection There was no acute elevation in white cell count and IV antibiotics were continued A decision was made on SundayJanuary 05 to proceed with removal of penile prosthetic. This was performed on SundayJanuary 06 He remained in hospital as swelling resolved Significant resolution in pain and swelling by Sunday. Removal of drain Ravi catheter will stay 2 more weeks since he had 1 L retention at initial presentation Status at Discharge Functional status at discharge: independent ambulation Overall status at discharge: patient is back to baseline Time Attestation Total time managing care of this patient today: 20 mintues. Discharge Coordination Time (in mins): 10 Quality: Safe Use of Opioids Does Pt have an Active Cancer Diagnosis on the Problem List?: No Quality: Stroke Does the patient have a stroke diagnosis?: No Physical Exam Vital Signs: Vital Signs: Last Vital Signs Temp 97.7 F 01/09/25 07:28 Pulse 72 01/09/25 07:47 Resp 16 01/09/25 07:47 BP 123/58 L 01/09/25 07:28 Pulse Ox 95 01/09/25 07:28 O2 Del Method Room Air 01/09/25 07:28 O2 Flow Rate 2 01/07/25 04:00 BMI result Body Mass Index 36.5 DS: Data Data Completed and Pending Labs on day of discharge: Laboratory Results - last 24 hr 01/08/25 01/09/25 01/09/25 20:22 07:43 11:19 POC Glucose 222 H 164 H 159 H Preliminary micro results at discharge 01/06/25 16:36 Routine Culture - Preliminary Penis No growth to date. Imaging MRI - pelvis: Attestation: I personally reviewed and interpreted this imaging study as follows: Discharge Plan Discharge Anticipated Discharge Date/Time: 01/09/25 13:06 Patient Disposition: Home, Self-Care Discharge Diagnosis: Effective penile prosthetic with urinary retention Referrals: Jin Rizvi DO [Primary Care Provider, Thoracic Surgery] - 1 Week Discharge Medications: Continued famotidine [Pepcid] 20 mg tablet 20 mg PO BEDTIME Qty: 90 3RF pantoprazole 20 mg tablet,delayed release (DR/EC) 20 mg PO QAM Qty: 30 4RF tramadol 50 mg tablet 50 mg PO Q8H PRN (Reason: severe pain) sulfamethoxazole-trimethoprim [Bactrim] 400-80 mg tablet 1 tab PO DAILY Qty: 10 0RF oxycodone-acetaminophen [Percocet] 5-325 mg tablet 1 tab PO Q6H PRN (Reason: mild pain (scale score 1-4)) 14 Days Qty: 28 0RF Rx Instructions: Partial Fill upon patient request. cilostazol 100 mg tablet 100 mg PO BID carvedilol 12.5 mg tablet 12.5 mg PO BID acetaminophen 650 mg tablet extended release 1,300 mg PO Q8H MDD 6 tab/24 h PRN (Reason: pain) amlodipine 10 mg tablet 10 mg PO DAILY lidocaine 5 % adhesive patch,medicated 1 patch topical DAILY PRN (Reason: Pain) Rx Instructions: APPLY 1 PATCH TO SKIN. LEAVE ON FOR 12 HOURS, THEN OFF FOR 12 HOURS DIRECTED. gabapentin 300 mg capsule 600 mg PO BEDTIME insulin glargine [Lantus Solostar U-100 Insulin] 100 unit/mL (3 mL) insulin pen 35 unit subcut BEDTIME aspirin [Adult Low Dose Aspirin] 81 mg tablet,delayed release (DR/EC) 81 mg PO DAILY (DME) FreeStyle Lite Strips Strip See Rx Instructions .ROUTE .MEDSUPPLY Qty: 10 Rx Instructions: As directed glucose [Dex4 Glucose] 4 gram tablet,chewable 8 g PO Q15M PRN (Reason: Hypoglycemia) Rx Instructions: until symptoms of low blood sugar are controlled atorvastatin 80 mg tablet 80 mg PO BEDTIME (DME) lancets [TRUEplus Lancets] 28 gauge misc See Rx Instructions Not Applicable .MEDSUPPLY Qty: 100 Rx Instructions: As directed (DME) pen needle, diabetic [Pentips Pen Needle] 32 gauge x 5/32 needle See Rx Instructions .ROUTE DAILY Qty: 50 Rx Instructions: As directed gabapentin 300 mg capsule 300 mg PO DAILY risperidone 3 mg tablet 3 mg PO BEDTIME Mounjaro 5 mg/0.5 mL pen injector 5 mg subcut TH@0900 Patient Comments: takes on Sunday Discharge Orders: Discharge Order (Routine); Ordered 01/09/25 Ordered By: Sachin Oswald Diet: Advance to usual diet Activity on Discharge: As tolerated Stand Alone Forms: Patient Portal Discharge page Print Language: Omani Care Plan Goals: Follow-up for urinary retention Health Concerns: Urinary retention Plan of Treatment: Ravi catheter for 2 weeks Assessment: Two week follow-up Ravi catheter removal Discharge Date/Time: 01/09/25 14:30
== END 2025-01-09 14:30 | disposition home or self-care (01) | DRG 483 ==
PROVIDERS: Nurse Practitioner Family; Student in an Organized Health Care Education/Training Program; Admitting Provider Urology; PCP Student in an Organized Health Care Education/Training Program; Visit Provider Urology
PROC: 0VPS0JZ Removal of Synthetic Substitute from Penis, Open Approach (ICD-10-PCS; principal; 2025-01-06 16:00)
DX: T83.61XA 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, initial encounter (principal); N17.9 Acute kidney failure, unspecified; E11.42 Type 2 diabetes mellitus with diabetic polyneuropathy; R33.9 Retention of urine, unspecified; G47.00 Insomnia, unspecified; J45.909 Unspecified asthma, uncomplicated; E11.22 Type 2 diabetes mellitus with diabetic chronic kidney disease; N18.31 Chronic kidney disease, stage 3a; K21.9 Gastro-esophageal reflux disease without esophagitis; I12.9 Hypertensive chronic kidney disease with stage 1 through stage 4 chronic kidney disease, or unspecified chronic kidney disease; I25.10 Atherosclerotic heart disease of native coronary artery without angina pectoris; Z79.4 Long term (current) use of insulin; Z79.82 Long term (current) use of aspirin; Z79.899 Other long term (current) drug therapy
CPT/HCPCS: 36415; 71045; 72197; 80048; 80053; 80202; 81001; 82565; 82947; 83880; 85025; 87070; 87086; 87205; 93306; 94640; A9585; J0131; J1580; J1650; J2003; J2270; J2371; J2543; J2704; J2795; J3010; J3373; J3374; Q9957

== ENCOUNTER 2024-12-29 17:43 | Outpatient (BNV) | payer MEDICAID, SELFPAY | END 2024-12-30 07:00 | PROVIDERS: Admitting Provider Urology; PCP Student in an Organized Health Care Education/Training Program; Visit Provider Internal Medicine | DX: I31.39 Other pericardial effusion (noninflammatory) (principal) | CPT/HCPCS: 93306 ==

== ENCOUNTER 2024-12-29 17:43 | Outpatient (BNV) | payer MEDICAID, SELFPAY | END 2024-12-29 20:40 | PROVIDERS: Admitting Provider Urology; Visit Provider Radiology Diagnostic Radiology | DX: R06.02 Shortness of breath (principal) | CPT/HCPCS: 71045 ==

== ENCOUNTER → 2024-12-29 17:43 | Outpatient (BNV) | payer MEDICAID, SELFPAY | PROVIDERS: Admitting Provider Urology; Visit Provider Nurse Practitioner Family | DX: T83.61XA 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, initial encounter (principal) | CPT/HCPCS: 99223; 99232 ==

== ENCOUNTER → 2024-12-29 17:43 | Outpatient (BNV) | payer MEDICAID, SELFPAY | PROVIDERS: Admitting Provider Urology; PCP Student in an Organized Health Care Education/Training Program; Visit Provider Urology | DX: N99.89 Other postprocedural complications and disorders of genitourinary system (principal); R33.8 Other retention of urine; N39.0 Urinary tract infection, site not specified | CPT/HCPCS: 99024 ==

== ENCOUNTER 2025-01-14 10:05 | Outpatient (REF) | payer MEDICAID, SELFPAY ==
[2025-01-14 14:42] LABS: MANUAL DIFF FLAG NO
[2025-01-14 14:48] LABS: Hematocrit 30.8 % (42.0-52.0); Hemoglobin 10.0 g/dl (14.0-18.0); Imm Gran Abs Auto 0.02 X10*3/uL (0.00-0.03); Imm Gran Pct Auto 0.3 % (0.0-0.4); Lymphocytes Absolute Auto 1.0 X10*3/uL (1.2-4.9); Mean Corpuscular HGB Conc 32.5 g/dl (31.0-36.0); Mean Corpuscular Hemoglobin 27.2 pg (27.0-33.0); Mean Corpuscular Volume 83.7 fL (80.0-98.0); NRBC Abs Auto 0.000 X10*3/uL (0.0-0.012); NRBC Pct Auto 0.0 /100WBC (0.0-0.2); Platelet Count 298 X10*3/uL (160-400); Red Blood Count 3.68 X10*6/uL (4.60-5.80); White Blood Count 7.8 X10*3/uL (4.8-10.8)
[2025-01-14 15:09] LABS: Anion Gap 15 (12-20); Blood Urea Nitrogen 11 mg/dL (9-16); Calcium 9.2 mg/dL (8.4-10.2); Carbon Dioxide 24 mmol/L (22-29); Chloride 107 mmol/L (96-108); Estimated Glomerular Filt Rate > 60; Potassium 4.0 mmol/L (3.3-5.1); Sodium 142 mmol/L (135-145)
== END 2025-01-14 10:06 | disposition home or self-care (01) ==
LOC: HO.CHCLDS 10:05
PROVIDERS: Visit Provider Internal Medicine
DX: T83.61XA 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, initial encounter (principal); E11.65 Type 2 diabetes mellitus with hyperglycemia; Z79.4 Long term (current) use of insulin
CPT/HCPCS: 36415; 80048; 85025

== ENCOUNTER 2025-01-28 08:31 | Outpatient (AMB) | payer MEDICAID, SELFPAY ==
--- NOTE | 2025-01-28 08:31 | A.OFFVIS_ITS ---
Intake Visit Reasons: 2wk VT Intake Note: Patient is present for Voiding Trial Urology Medication:NONE Antibiotic Allergy:NONE Blood Thinner:ASPIRIN Imaging MRI 01/02/2025 PVR 15 MLs Escalator Operator Required: Yes Accompanied by: Self / Same As Patient Allergies No Known Allergies Allergy (Verified 01/28/25 08:32) HPI Comments Details: Osvaldo is a pleasant Slovenian-speaking male. Patient of Dr. Tinajero. He is seen for the following urologic conditions - erectile dysfunction Qualified medical billing service Underwent penile prosthetic placement Postoperative course derailed by bladder infection Ravi catheter placed with urinary retention Significant penile edema which resulted in persistent pain Prosthetic removed. Culture did not show infection Passed voiding trial Start finasteride and tamsulosin to minimize chance of recurrence Erectile dysfunction in setting of diabetes Initially responded to oral medications Has been using penile injections with minimal improvement Failed high-dose Cialis with on demand. PSAs: 01/15 0.2, 07/19 0.2, 07/20 0.2, 09/18 0.2 Testosterone: 06/20 395 Free testosterone: 06/20 53.3 A1c: 12/15 9.7%, 06/20 5.6 PFSH Medical History Arthritis Asthma Peripheral arterial occlusive disease Hyperlipidemia IBS (irritable bowel syndrome) Benign prostatic hyperplasia without lower urinary tract symptoms GERD (gastroesophageal reflux disease) Chronic kidney disease Acute kidney failure Abdominal bloating Painful arc syndrome of right shoulder Chronic idiopathic constipation Tubular adenoma Myocardial infarct, old Diabetes PVD (peripheral vascular disease) CAD (coronary artery disease) Family history of prostate cancer Scrotal swelling Elevated PSA Surgical History Hx of aorto-femoral bypass History of coronary artery stent placement Hx of coronary angioplasty Hx of ligation of vein History of esophagogastroduodenoscopy (EGD) Hx of colonoscopy Hx of arthroscopic knee surgery History of surgery History of vascular surgery History of cardiac cath Family History Maternal Grandmother Diabetes Paternal Grandmother Diabetes Brother Diabetes Mother No problems noted. Father Diabetes Social History Household Members: Family Housing: Apartment Do you presently have visiting nurse or other home services: No Alcohol intake: never Comment: camera Patient Tobacco Use Status: Former Tobacco user Tobacco use type: Cigarette Years Smoked: 35+ service: No Current occupational status: disabled Current occupation: right hand dominant Review of Systems Const Denies chills and Denies fever(s) Card Reports no additional complaints and Denies syncope Resp Denies cough GI Denies abdominal pain and Denies heartburn Reports as per HPI and Denies change in libido Neuro Denies syncope Psych Denies change in libido Endo Denies change in libido Physical Exam Const General: cooperative, healthy appearing, comfortable and no acute distress Orientation/consciousness: patient oriented x3 HEENT Face and sinus: Yes normal facial exam Mouth: moist mucous membranes Neck Neck: Yes normal visual inspection, Yes full ROM and Yes trachea midline Chest Chest palpation & inspection: normal inspection of the chest Resp Effort & Inspection: normal respiratory effort, able to speak in complete sentences and no respiratory distress GI Inspection: Yes normal to inspection Back/Spine/Pelvis Cervical Spine: normal cervical lordosis Thoracic/Lumbar Spine: thoracic and lumbar spine normal to inspection Skin General skin exam: no rashes or lesions noted Neuro General: patient oriented x3, gait normal, tone normal and moves all extremities Extrem General: Yes normal to inspection and Yes capillary refill normal Office Procedures Bladder/Catheter Procedure 11767-[id number] of Bladder Procedure code (CPT) selection complete Assessment & Plan Assessment & Plan (1) Postoperative urinary retention: Code(s): N99.89 - Other postprocedural complications and disorders of genitourinary system; R33.8 - Other retention of urine Category: Medical Plan Three-month follow-up check PVR Start prostate medication Orders: Orders AMB Post Void Residual by ultrasound Today N99.89 - Other postprocedural complications and disorders of genitourinary system, R33.8 - Other retention of urine AMB Bladder/Catheter Procedure Today N99.89 - Other postprocedural complications and disorders of genitourinary system, R33.8 - Other retention of urine Medications: New finasteride 5 mg PO DAILY 90 tabs 1RF 90 days N99.89 - Other postprocedural complications and disorders of genitourinary system, R33.8 - Other retention of urine tamsulosin (Flomax) 0.4 mg PO BEDTIME 90 tabs 1RF 90 days N99.89 - Other postprocedural complications and disorders of genitourinary system, R33.8 - Other retention of urine Patient Instructions: This note is constructed using voice recognition software. While every effort has been made to ensure accuracy environmental services lead errors may have been included. Imaging studies, laboratory and physical exam results were discussed and reviewed in detail. No major barriers to patient understanding were identified. An opportunity to ask questions regarding the treatment plan was provided. All questions were answered. The patient expressed understanding and agreement with the above treatment plan. The patient is aware they should contact our office by phone for worsening of their current condition or the appearance of new urologic symptoms. Compliance is encouraged with any medications and followup testing that is ordered. It is a privilege to participate in the urologic care of your patient. If you have any questions or concerns regarding treatment for the above conditions, or other urologic issues, please do not hesitate to contact me. The office telephone contact is [phone]. Sincerely, Dr Sachin Oswald MD, [facility] - Urology Compassionate Specialist Care for the Genitourinary System Coding Level of Care Code Est Pt Level 4 (70190) Diagnoses Postoperative urinary retention N99.89; R33.8 CPT Codes Bladder/Catheter Procedure - CPT: 71717-Rhyaoqsiti of Bladder ([id number])
--- OUTSIDE RECORDS SUMMARY | 2025-01-28 08:57 | XMS_ITS | Encounter Summary ---
Author Organization [employer] Address [address] [facility] 7t [place] [address] Care Team Providers Care Coffee Bar Attendant Name Role Phone Juan Miguel Tinajero MD Primary Care Provider [phone] Juan Cordova PharmD Unavailable Unavail able Aidee Mejia Unavailable Encounter Details Date Type Department Care Team (Late st Contact Info) Description 03/27/2023 Abstract [facility] MEDICINE [address] [place] [address] Juan Miguel Tinajero MD [address] [place] [address] Social History Tobacco Use Types Packs/Day Years [...] Description 02/02/2025 9:30 AM EDT Telemedicine [facility] MED & PEDS [address] [place] [address] Elsa Barnett RN [address] [place] [address] 02/17/2025 9:15 AM EDT Office Visit [facility] [address] [place] [address] Juan Miguel Tinajero MD [address] [place] [address] documented as of this encounter Goals Goal Patient Goal Type Associated Problems Recent Progress Patient-Stated? Author Blood Pressure < 140/90 Blood Pressure 162/88(2024 9:11 AM EDT) No Dellogono, Juan, PharmD Hemoglobin A1c < 7 Result Component 7.7( 10:26 AM EDT) No Dellogono, Juan, PharmD documented as of this encounter Visit Diagnoses Not on filedocumented in this encounter Additional Health Concerns Assessment Noted Time PHQ-9 Depression Total Score: 1 01/03/20 23 9:06 AM EDT documented as of this encounter Care Teams Coffee Bar Attendant Relationship Specialty Start Date End Date Juan Miguel Tinajero MD [address] [place] [address] PCP - General Internal Medicine 05/28/18 Juan Cordova, PharmD [address] [place] [address] Pharmacist Internal Medicine 07/14/22 Aidee Mejia 12/29/24 01/07/25 Yvonne Knox Sample ExaminerWoodyard Operator 02/15/23 Yvonne Knox Sample ExaminerWoodyard Operator 04/09/24 documented as of this encounter
--- OUTSIDE RECORDS SUMMARY | 2025-01-28 08:57 | XMS_ITS | Encounter Summary ---
Author Organization [employer] Address [address] [place] [address] 7t [place] [address] Care Team Providers Care Tank Driver Name Role Phone Juan Miguel Tinajero MD Primary Care Provider [phone] Juan Cordova PharmD Unavailable Unavail able Aidee Mejia Unavailable Reason for Visit * Reason Comments Med Refill Encounter Details Date Type Department Care Team ([facility] Contact Info) Description 02/19/2023 Refill [facility] MED & PEDS [address] [place], [place] [phone] Juan Miguel Tinajero MD [address] [place] [address] Peripheral arterial occlusive disease (CMS/HCC) Social History [...] Upcoming Encounters Date Type Department Care Team ([facility] Contact Info) Description 02/02/2025 9:30 AM EDT Telemedicine [facility] MED & PEDS [address] [place] [address] Elsa Barnett, JENS [address] [place] [address] 02/17/2025 9:15 AM EDT Office Visit [facility] MED & PEDS [address] [place] [address] Juan Miguel Tinajero MD [address] [place] [address] documented as of this encounter Goals Goal Patient Goal Type Associated Problems Recent Progress Patient-Stated? Author Blood Pressure < 140/90 Blood Pressure 162/88(2024 9:11 AM EDT) No Juan Cordova, PharmD Hemoglobin A1c < 7 Result Component 7.7( 10:26 AM EDT) No Juan Cordova, PharmD documented as of this encounter Visit Diagnoses Diagnosis Peripheral arterial occlusive disease (CMS/HCC) Unspecified peripheral vascular disease documented in this encounter Additional Health Concerns Assessment Noted Time PHQ-9 Depression Total Score: 1 01/03/20 9:06 AM EDT documented as of this encounter Care Teams Tank Driver Relationship Specialty Start Date End Date Juan Miguel Tinajero MD [address] [place] [address] PCP - General Internal Medicine 05/28/18 Juan Cordova, PharmD [address] [place] [address] Pharmacist Internal Medicine 07/14/22 Aidee Mejia 12/29/24 01/07/25 Yvonne Knox Animal ResearcherMaterials Technician 02/15/23 Yvonne Knox Animal ResearcherMaterials Technician 04/09/24 documented as of this encounter
--- OUTSIDE RECORDS SUMMARY | 2025-01-28 08:57 | XMS_ITS | Encounter Summary ---
Author Organization [employer] [facility] Address [address] [facility] 7 [place] [address] Care Team Providers Care Patient Registration Clerk Name Role Phone Juan Miguel Tinajero MD Primary Care Provider [phone] Juan Cordova PharmD Unavailable Unavail able Aidee Mejia Unavailable Encounter Details Date Type Department Care Team (Latest Contact Info) Description 03/17/2022 Abstract [facility] CONVERSIONS Dental, Provider, DDS Social History Tobacco [...] 02/02/2025 9:30 AM EDT Telemedicine [facility] MED & PEDS [address] [place] [address] Elsa Barnett, JENS [address] [place] [address] 02/17/2025 9:15 AM EDT Office Visit [facility] MED & PEDS [address] [place] [address] Juan Miguel Tinajero MD [address] [place] [address] documented as of this encounter Visit Diagnoses Not on filedocumented in this encounter Care Teams Patient Registration Clerk Relationship Specialty Start Date End Date Juan Miguel Tinajero MD [address] [place] [address] PCP - General Internal Medicine 05/28/18 Juan Cordova, EbonieD [address] [place] [address] Pharmacist Internal Medicine 07/14/22 Aidee Mejia 12/29/24 01/07/25 Yvonne Knox Passenger ScreenerWell Service Derrick Worker 02/15/23 Yvonne Knox Passenger ScreenerWell Service Derrick Worker 04/09/24 documented as of this encounter
--- OUTSIDE RECORDS SUMMARY | 2025-01-28 08:57 | XMS_ITS | Encounter Summary ---
Author Organization [employer] Address [address] [facility] 7t [place] [address] Care Team Providers Care Policyholder Information Clerk Name Role Phone Juan Miguel Tinajero MD Primary Care Provider [phone] Juan Cordova PharmD Unavailable Unavail able Aidee Mejia Unavailable Reason for Visit * Reason Comments Med Refill Encounter Details Date Type Department Care Team ([facility] Contact Info) Description 10/31/2023 Refill [facility] MED & PEDS [address] [place], [place] [phone] Juan Miguel Tinajero MD [address] [place] [address] Sore throat; Bacterial conjunctivitis; Chronic pain syndrome [...] Info) Description 02/02/2025 9:30 AM EDT Telemedicine [facility] MED & PEDS [address] [place] [address] Elsa Barnett RN [address] [place] [address] 02/17/2025 9:15 AM EDT Office Visit [facility] MED & PEDS [address] [place] [address] Juan Miguel Tinajero MD [address] [place] [address] documented as of this encounter Goals Goal [...] documented as of this encounter Care Teams Policyholder Information Clerk Relationship Specialty Start Date End Date Juan Miguel Tinajero MD [address] [place] [address] PCP - General Internal Medicine 05/28/18 Juan Cordova PharmD [address] [place] [address] Pharmacist Internal Medicine 07/14/22 Aidee Mejia 12/29/24 01/07/25 Yvonne Knox Morgue LibrarianWet Primer Powder Blender 02/15/23 Yvonne Knox Morgue LibrarianWet Primer Powder Blender 04/09/24 documented as of this encounter
--- OUTSIDE RECORDS SUMMARY | 2025-01-28 08:57 | XMS_ITS | Encounter Summary ---
Author Organization [employer] Address [address] [facility] 7t [place] [address] Care Team Providers Care Senior Revenue Accountant Name Role Phone Juan Miguel Tinajero MD Primary Care Provider [phone] Juan Cordova PharmD Unavailable Unavail able Aidee Mejia Unavailable Encounter Details Date Type Department Care Team ([facility] st Contact Info) Description 06/14/2023 Orders Only [facility] MED & PEDS [address] [place], [place] [phone] Juan Miguel Tinajero MD [address] [place] [address] Benign essential hypertension Social History Tobacco Use [...] Upcoming Encounters Date Type Department Care Team ([facility] st Contact Info) Description 02/02/2025 9:30 AM EDT Telemedicine [facility] MED & PEDS [address] [place] [address] Elsa Barnett RN [address] [place] [address] 02/17/2025 9:15 AM EDT Office Visit [facility] MED [facility] PEDS [address] [place] [address] Juan Miguel Tinajero MD [address] [place] [address] documented as of this encounter Goals Goal [...] documented as of this encounter Care Teams Senior Revenue Accountant Relationship Specialty Start Date End Date Juan Miguel Tinajero MD [address] [place] [address] PCP - General Internal Medicine 05/28/18 Juan Cordova, Benjamin [address] [place] [address] Pharmacist Internal Medicine 07/14/22 Aidee Mejia 12/29/24 01/07/25 Yvonne Knox Multiple Spindle Screw Machine OperatorGrease Renderer 02/15/23 Yvonne Knox Multiple Spindle Screw Machine OperatorGrease Renderer 04/09/24 documented as of this encounter
--- OUTSIDE RECORDS SUMMARY | 2025-01-28 08:57 | XMS_ITS | Encounter Summary ---
Author Organization [employer] Address [address] [facility] 7t [place] [address] Care Team Providers Care Sales Merchandise Associate Name Role Phone Juan Miguel Tinajero MD Primary Care Provider [phone] Juan Cordova PharmD Unavailable Unavail able Aidee Mejia Unavailable Reason for Visit * Reason Comments Med Refill Encounter Details Date Type Department Care Team ([facility] Contact Info) Description 06/28/2023 Refill [facility] MED & PEDS [address] [place], [place] [phone] Juan Miguel Tinajero MD [address] [place] [address] Moderate persistent asthma without complication Social History [...] Info) Description 02/02/2025 9:30 AM EDT Telemedicine [facility] MED & PEDS [address] [place] [address] Elsa Barnett RN [address] [place] [address] 02/17/2025 9:15 AM EDT Office Visit [facility] MED & PEDS [address] [place] [address] Juan Miguel Tinajero MD [address] [place] [address] documented as of this encounter Goals Goal [...] Time PHQ-9 Depression Total Score: 2 04/03/20 8:54 AM EST documented as of this encounter Care Teams Sales Merchandise Associate Relationship Specialty Start Date End Date Juan Miguel Tinajero MD [address] [place] [address] PCP - General Internal Medicine 05/28/18 Juan Cordova PharmD [address] [place] [address] Pharmacist Internal Medicine 07/14/22 Aidee Mejia 12/29/24 01/07/25 Yvonne Knox Otolaryngology SurgeonClarifier Operator Helper 02/15/23 Yvonne Knox Otolaryngology SurgeonClarifier Operator Helper 04/09/24 documented as of this encounter
--- OUTSIDE RECORDS SUMMARY | 2025-01-28 08:57 | XMS_ITS | Encounter Summary ---
Author Organization [employer] Address [address] [facility] 7 [place] [address] Care Team Providers Care Trip Rider Name Role Phone Juan Miguel Tinajero MD Primary Care Provider [phone] Juan Cordova PharmD Unavailable Unavail able Aidee Mejia Unavailable Encounter Details Date Type Department Care Team ([facility] Contact Info) Description 11/09/2023 Orders Only [facility] MED & PEDS [address] [place], [place] [phone] Juan Miguel Tinajero MD [address] [place] [address] Social History Tobacco Use Types Packs/Day Years [...] [facility] [address] [place] [address] Elsa Barnett RN [address] [place] [address] 02/17/2025 9:15 AM EDT Office Visit [facility] MED & PEDS [address] [place] [address] Juan Miguel Tinajero MD [address] [place] [address] documented as of this encounter Goals Goal [...] documented as of this encounter Care Teams Trip Rider Relationship Specialty Start Date End Date Juan Miguel Tinajero MD [address] [place] [address] PCP - General Internal Medicine 05/28/18 Juan Cordova, EbonieD [address] [facility] [address] Pharmacist Internal Medicine 07/14/22 Aidee Mejia 12/29/24 01/07/25 Yvonne Knox SwamperResidential Real Estate Agent 02/15/23 Yvonne Knox SwamperResidential Real Estate Agent 04/09/24 documented as of this encounter
--- OUTSIDE RECORDS SUMMARY | 2025-01-28 08:57 | XMS_ITS | Encounter Summary ---
Author Organization [employer] Address [address] [facility] 7t [place] [address] Care Team Providers Care Manufacturing Sr Engineer Name Role Phone Juan Miguel Tinajero MD Primary Care Provider [phone] Juan Cordova PharmD Unavailable Unavail able Aidee Mejia Unavailable Reason for Visit * Reason Comments Med Refill Encounter Details Date Type Department Care Team ([facility] Contact Info) Description 03/28/2024 Refill [facility] MED & PEDS [address] [place], [place] [phone] Juan Miguel Tinajero MD [address] [place] [address] Sore throat; Bacterial conjunctivitis; Chronic pain syndrome [...] 9:30 AM EDT Telemedicine [facility] MED & PEDS [address] [place] [address] Elsa Barnett RN [address] [place] [address] 02/17/2025 9:15 AM EDT Office Visit [facility] MED & PEDS [address] [place] [address] Juan Miguel Tinajero MD [address] [place] [address] documented as of this encounter Goals Goal Patient Goal Type Associated Problems Recent Progress Patient-Stated? Author Blood Pressure < 140/90 Blood Pressure 162/88(2024 9:11 AM EDT) No DellogJuan mtz, PharmD Hemoglobin A1c < [...] documented as of this encounter Care Teams Manufacturing Sr Engineer Relationship Specialty Start Date End Date Juan Miguel Tinajero MD [address] [facility] [place] [address] PCP - General Internal Medicine 05/28/18 Juan Cordova PharmD [address] [place] [address] Pharmacist Internal Medicine 07/14/22 Aidee Mejia 12/29/24 01/07/25 Yvonne Knox Contact Lens CutterSynthetic Plasterer 02/15/23 Yvonne Knox Contact Lens CutterSynthetic Plasterer 04/09/24 documented as of this encounter
--- OUTSIDE RECORDS SUMMARY | 2025-01-28 08:57 | XMS_ITS | Encounter Summary ---
Author Organization [employer] Address [address] [place] [address] 7t [place] [address] Care Team Providers Care Operations Tech Name Role Phone Juan Miguel Tinajero MD Primary Care Provider [phone] Juan Cordova PharmD Unavailable Unavail able Aidee Mejia Unavailable Reason for Visit * Reason Comments Med Refill Encounter Details Date Type Department Care Team ([facility] Contact Info) Description 12/18/[address] [facility] MED & PEDS [address] [place], [place] [phone] Juan Miguel Tinajero MD [address] [place] [address] Back pain, unspecified back location, unspecified back [...] Department Care Team (Late Contact Info) Description 02/02/2025 9:30 AM EDT Telemedicine [facility] MED & PEDS [address] [place] [address] Elsa Barnett, JENS [address] [place] [address] 02/17/2025 9:15 AM EDT Office Visit [facility] P[facility] [address] [place] [address] Juan Miguel Tinajero MD [address] [place] [address] documented as of this encounter Goals Goal [...] Time PHQ-9 Depression Total Score: 1 10/03/19 10:17 AM EDT documented as of this encounter Care Teams Operations Tech Relationship Specialty Start Date End Date Juan Miguel Tinajero MD [address] [place] [address] PCP - General Internal Medicine 05/28/18 Juan Cordova, PharmD [address] [place] [address] Pharmacist Internal Medicine 07/14/22 Aidee Mejia 12/29/24 01/07/25 Yvonne Knox Technical Proposal WriterLocomotive Engineer 02/15/23 Yvonne Knox Technical Proposal WriterLocomotive Engineer 04/09/24 documented as of this encounter
--- OUTSIDE RECORDS SUMMARY | 2025-01-28 08:57 | XMS_ITS | Encounter Summary ---
Author Organization [employer] Address [address] [facility] 7t [place] [address] Care Team Providers Care Quality Improvement Engineer Name Role Phone Juan Miguel Tinajero MD Primary Care Provider [phone] Juan Cordova PharmD Unavailable Unavail able Aidee Mejia Unavailable Reason for Visit * Reason Onset Date Comments Pre-op Visit 01/07/2024 Encounter Details Date Type Department Care Team (Late st Contact Info) Description 01/07/2024 Telephone [facility] [address] [place] [address] Juan Miguel Tinajero MD [address] [place] [address] Pre-op Visit Social History Tobacco Use Types [...] PM EDT Outgoing call to [place] at [facility] calling to inform pt agreed to come [...] Yes Surgeon's name: lawanda kingsley Facility name: [facility] Surgeon's office number: [phone] Surgeon's office fax number: [phone] Contact name: [place] Last office note from surgeon requested: Yes documented in this encounter Plan of Treatment Upcoming Encounters Date Type Department Care Team ([facility] st Contact Info) Description 02/02/2025 9:30 AM EDT Telemedicine [facility] MED & PEDS [address] [place] [address] Elsa Barnett, RN [address] [place] [address] 02/17/2025 9:15 AM EDT Office Visit [facility] [address] [place] [address] Juan Miguel Tinajero MD [address] [place] [address] documented as of this encounter Goals Goal Patient Goal Type Associated Problems Recent Progress Patient-Stated? Author Blood Pressure < 140/90 Blood Pressure 162/88(2024 9:11 AM EDT) No Juan Cordova, PharmConstantin Hemoglobin A1c < 7 Result Component 7.7( 10:26 AM EDT) No Juan Cordova, PharmD documented as of this encounter Visit Diagnoses Not on filedocumented in this encounter Additional Health Concerns Assessment Noted Time PHQ-9 Depression Total Score: 0 10/30/19 10:10 AM EDT documented as of this encounter Care Teams Quality Improvement Engineer Relationship Specialty Start Date End Date Juan Miguel Tinajero MD [address] [place] [address] PCP - General Internal Medicine 05/28/18 Juan Cordova, PharmD [address] [place] [address] Pharmacist Internal Medicine 07/14/22 Aidee Mejia 12/29/24 01/07/25 Yvonne Knox Power Tong OperatorSeed Mill Superintendent 02/15/23 Yvonne Knox Power Tong OperatorSeed Mill Superintendent 04/09/24 documented as of this encounter
--- OUTSIDE RECORDS SUMMARY | 2025-01-28 08:57 | XMS_ITS | Encounter Summary ---
Author Organization [employer] Address [address] [facility] 7t [place] [address] Care Team Providers Care Supervisor Grove Name Role Phone Juan Miguel Tinajero MD Primary Care Provider [phone] Juan Cordova PharmD Unavailable Unavail able Aidee Mejia Unavailable Reason for Visit * Reason Comments Med Refill Encounter Details Date Type Department Care Team ([facility] Contact Info) Description 12/27/2024 Refill [facility] MED & PEDS [address] [place], [place] [phone] Juan Miguel Tinajero MD [address] [place] [address] Complains of low back pain Social History [...] [facility] [address] [place] [address] Elsa Barnett RN [address] [place] [address] 02/17/2025 9:15 AM EDT Office Visit [facility] PED[facility] [address] [place] [address] Juan Miguel Tinajero MD [address] [place] [address] documented as of this encounter Goals Goal Patient Goal Type Associated Problems Recent Progress Patient-Stated? Author Blood Pressure < 140/90 Blood Pressure 162/88(2024 9:11 AM EDT) No Juan Cordova, PharmD Hemoglobin A1c < 7 Result Component 7.7( 10:26 AM EDT) No DelJuan delgado, PharmD documented as of this encounter Visit Diagnoses Diagnosis Complains of low back pain documented in this encounter Additional Health Concerns Assessment Noted Time PHQ-9 Depression Total Score: 0 06/04/20 24 10:10 AM EDT documented as of this encounter Care Teams Supervisor Grove Relationship Specialty Start Date End Date Juan Miguel Tinajero MD [address] [facility] [place] [address] PCP - General Internal Medicine 05/28/18 Juan Cordova PharmD [address] [facility] [place] [address] Pharmacist Internal Medicine 07/14/22 Aidee Mejia 12/29/24 01/07/25 Yvonne Knox Ironworker Wire Fence ErectorNurse Practitioner Home Assessments 02/15/23 Yvonne Knox Ironworker Wire Fence ErectorNurse Practitioner Home Assessments 04/09/24 documented as of this encounter
--- OUTSIDE RECORDS SUMMARY | 2025-01-28 08:57 | XMS_ITS | Encounter Summary ---
Author Organization [employer] Address [address] [facility] 7[address] [place] [address] Care Team Providers Care Dust Control Engineer Name Role Phone Juan Miguel Tinajero MD Primary Care Provider [phone] Juan Cordova PharmD Unavailable Unavail able Aidee Mejia Unavailable Encounter Details Date Type Department Care Team (Late st Contact Info) Description 12/03/2023 Orders Only [facility] MED & PEDS [address] [place], [place] [phone] Juan Miguel Tinajero MD [address] [place] [address] Type 2 diabetes mellitus with both eyes affected by mild nonproliferative retinopathy without macular edema, with long-term current use of insulin ([facility]) (Primary Dx) Social History Tobacco Use [...] [facility] [address] [place] [address] Elsa Barnett RN [address] [place] [address] 02/17/2025 9:15 AM EDT Office Visit [facility] [address] [place] [address] Juan Miguel Tinajero MD [address] [place] [address] documented as of this encounter Goals Goal [...] edema, with long-term current use of insulin ([facility])- Primary documented in this encounter Additional Health Concerns Assessment Noted Time PHQ-9 Depression Total Score: 0 10/30/19 24 10:10 AM EDT documented as of this encounter Care Teams Dust Control Engineer Relationship Specialty Start Date End Date Juan Miguel Tinajero MD [address] [place] [address] PCP - General Internal Medicine 05/28/18 Juan Cordova, EbonieD [address] [place] [address] Pharmacist Internal Medicine 07/14/22 Aidee Mejia 12/29/24 01/07/25 Yvonne Knox Labelling Machine OperatorPawn Broker 02/15/23 Yvonne Knox Labelling Machine OperatorPawn Broker 04/09/24 documented as of this encounter
--- OUTSIDE RECORDS SUMMARY | 2025-01-28 08:57 | XMS_ITS | Encounter Summary ---
Author Organization [employer] Address [address] [place] [address] 7 [place] [address] Care Team Providers Care Assembler Adjuster Name Role Phone Juan Miguel Tinajero MD Primary Care Provider [phone] Juan Cordova PharmD Unavailable Unavail able Aidee Mejia Unavailable Encounter Details Date Type Department Care Team (Late st Contact Info) Description 04/24/[address] [facility] [address] [place] [address] Dental, Provider, DDS Social History Tobacco Use [...] Upcoming Encounters Date Type Department Care Team ([facility] Contact Info) Description 02/02/2025 9:30 AM EDT Telemedicine [facility] MED & PEDS [address] [place] [address] Elsa Barnett, JNES [address] [place] [address] 02/17/2025 9:15 AM EDT Office Visit [facility] MED & PEDS [address] [place] [address] Juan Miguel Tinajero MD [address] [place] [address] documented as of this encounter Procedures Procedure [...] on filedocumented in this encounter Care Teams Assembler Adjuster Relationship Specialty Start Date End Date Juan Miguel Tinajero MD [address] [place], [place] [phone] PCP - General Internal Medicine 05/28/18 Juan Cordova PharmD [address] [place] [address] Pharmacist Internal Medicine 07/14/22 Aidee Mejia 12/29/24 01/07/25 Yvonne Knox Certified Hyperbaric TechnicianTechnical Manager 02/15/23 Yvonne Knox Certified Hyperbaric TechnicianTechnical Manager 04/09/24 documented as of this encounter
--- OUTSIDE RECORDS SUMMARY | 2025-01-28 08:57 | XMS_ITS | Encounter Summary ---
Author Organization [employer] Address [address] [facility] 7 [place] [address] Care Team Providers Care Furnace Cleaner Name Role Phone Juan Miguel Tinajero MD Primary Care Provider [phone] Juan Cordova PharmD Unavailable Unavail able Aidee Mejia Unavailable Reason for Visit * Reason Comments Med Refill Encounter Details Date Type Department Care Team ([facility] st Contact Info) Description 10/31/2023 Refill [facility] MED & PEDS [address] [place], [place] [phone] Juan Miguel Tinajero MD [address] [place] [address] Chronic right shoulder pain; Pain in right [...] Description 02/02/2025 9:30 AM EDT Telemedicine [facility] [address] [place] [address] Elsa Barnett RN [address] [place] [address] 02/17/2025 9:15 AM EDT Office Visit [facility] [address] [place] [address] Juan Miguel Tinajero MD [address] [place] [address] documented as of this encounter Goals Goal [...] documented as of this encounter Care Teams Furnace Cleaner Relationship Specialty Start Date End Date Juan Miguel Tinajero MD [address] [place] [address] PCP - General Internal Medicine 05/28/18 Juan Cordova PharmD [address] [place] [address] Pharmacist Internal Medicine 07/14/22 Aidee Mejia 12/29/24 01/07/25 Yvonne Knox Commercial Real Estate LenderPhotostatic Copy Maker 02/15/23 Yvonne Knox Commercial Real Estate LenderPhotostatic Copy Maker 04/09/24 documented as of this encounter
--- OUTSIDE RECORDS SUMMARY | 2025-01-28 08:57 | XMS_ITS | Encounter Summary ---
Author Organization [employer] Address [address] [facility] 7t [place] [address] Care Team Providers Care Machinist Bench Name Role Phone Juan Miguel Tinajero MD Primary Care Provider [phone] Juan Cordova PharmD Unavailable Unavail able Aidee Mejia Unavailable Reason for Visit * Reason Comments Med Refill Encounter Details Date Type Department Care Team ([facility] Contact Info) Description 12/07/[address] [facility] MED & PEDS [address] [place], [place] [phone] Juan Miguel Tinajero MD [address] [place] [address] Chronic pain syndrome; Sore throat; Bacterial conjunctivitis [...] 02/02/2025 9:30 AM EDT Telemedicine [facility] MED & PEDS [address] [place] [address] Elsa Barnett RN [address] [place] [address] 02/17/2025 9:15 AM EDT Office Visit [facility] MED & PEDS [address] [place] [address] Juan Miguel Tinajero MD [address] [place] [address] documented as of this encounter Goals Goal Patient Goal Type Associated Problems Recent Progress Patient-Stated? Author Blood Pressure < 140/90 Blood Pressure 162/88(2024 9:11 AM EDT) No DelJuan delgado, PharmD Hemoglobin A1c < [...] documented as of this encounter Care Teams Machinist Bench Relationship Specialty Start Date End Date Juan Miguel Tinajero MD [address] [place] [address] PCP - General Internal Medicine 05/28/18 Juan Cordova PharmD [address] [place] [address] Pharmacist Internal Medicine 07/14/22 Aidee Mejia 12/29/24 01/07/25 Yvonne Knox Ground Intelligence OfficerTower Attendant 02/15/23 Yvonne Knox Ground Intelligence OfficerTower Attendant 04/09/24 documented as of this encounter
--- OUTSIDE RECORDS SUMMARY | 2025-01-28 08:57 | XMS_ITS | Clinical Summary ---
Author Organization [employer] Address [address] [facility] [address] [place] [address] Care Team Providers Care Bulk Pallet Builder Name Role Phone Juan Miguel Tinajero MD Primary Care Provider [phone] Juan Cordova PharmD Unavailable Unavail able Allergies [...] 1 tablet by mouth at bedtime. Active polyethylene glycol, PEG, 3350 (Glycolax) 17 GM/SCOOP powder STIR 17GM INTO 8 OUNCES OF WATER, OR JUICE, AND DRINK DAILY NEEDED / DIRECTED 023 Active Continuous Blood Gluc Manager [facility] (FreeStyle Michael 2 [place]) deviceIndications: Type 2 diabetes mellitus with other circulatory complication, with long-term current use of insulin ([facility]) Use to check blood sugar as directed 1 each 023 Active glucose 4 g chewable tabletIndications: Type 2 diabetes mellitus with other circulatory complication, with long-term current use of insulin ([facility]) Chew 4 tablets (16 g) if needed [...] complication, with long-term current use of insulin ([facility]) USE TO TEST BLOOD SUGAR CHANGE AFTER TWO WEEKS, THREE TIMES DAILY 2 each 023 Active Alcohol Swabs (Alcohol Prep) 70 % padsIndications:Ty pe 2 diabetes mellitus with diabetic peripheral angiopathy without gangrene, with long-term current use of insulin ([facility]) USE FIVE DAILY 100 each 024 Active Diclofenac Sodium 1 % gelIndications:Chr onic right shoulder pain APPLY 2 GRAM'S TO AFFECTED AREA(s) FOUR TIMES DAILY NEEDED 100 g 1 024 Active insulin pen needle (TechLite Plus Pen [place]) 32G x 4 mm misc USE FIVE DAILY 100 each 024 Active FT Earwax Removal 6.5 % otic solutionIndication s:Impacted cerumen of right ear PLACE 5 TO 10 DROPS IN AFFECTED EAR(S) TWICE DAILY FOR FOUR DAYS 15 mL 1 025 Active amLODIPine (Norvasc) 10 MG tablet TAKE ONE TABLET EVERY MORNING 90 tablet 1 025 Active atorvastatin (Lipitor) 80 MG tablet TAKE ONE TABLET EVERY NIGHT AT BEDTIME 90 tablet 1 025 Active Acetaminophen Extra Strength 500 MG tabletIndications: Chronic pain syndrome TAKE TWO TABLETS EVERY 6 HOURS NEEDED FOR PAIN 40 tablet 1 025 Active Easy Touch Lancets 33G/Twist miscIndications:Ty pe 2 diabetes mellitus with other circulatory complication, with long-term current use of insulin ([facility]) TEST BLOOD SUGAR FIVE TIMES DAILY 200 each 11 025 Active lidocaine (Lidoderm) 5 % patchIndications:C hronic right shoulder pain,Pain in right shoulder APPLY 1 PATCH TO SKIN. LEAVE ON FOR 12 HOURS, THEN OFF FOR 12 HOURS DIRECTED. 30 patch 3 025 Active insulin glargine (Lantus SoloStar) 100 UNIT/ML penIndications:Typ e 2 diabetes mellitus with other circulatory complication, with long-term current use of insulin ([facility]) INJECT 35 UNITS SUBCUTANEOUSLY DAILY 15 mL 3 025 Active FREESTYLE LITE test stripIndications:T ype 2 diabetes mellitus with diabetic peripheral angiopathy without gangrene, with long-term current use of insulin ([facility]) TEST BLOOD SUGAR FIVE TIMES DAILY 150 strip 5 025 Active Mounjaro 5 MG/0.5ML solution auto-injectorIndic ations:Type 2 diabetes mellitus with both eyes affected by mild nonproliferative retinopathy without macular edema, with long-term current use of insulin ([facility]) INJECT ONE PEN (=5MG) SUBCUTANEOUSLY ONCE A WEEK DIRECTED 2 mL 2 025 Active Aspirin Adult Low Strength 81 MG EC tabletIndications: Benign essential hypertension TAKE ONE TABLET EVERY MORNING 90 tablet 1 025 Active cilostazol (Pletal) 100 MG tabletIndications: Peripheral arterial occlusive disease ([facility]) TAKE ONE TABLET TWICE DAILY IN THE MORNING AND AT BEDTIME 30 MINUTES BEFORE MEALS OR TWO HOURS BEFORE BREAKFAST AND SUPPER 60 tablet 1 025 Active risperiDONE (RisperDAL) 3 MG tabletIndications: MDD (major depressive disorder), recurrent, severe, with psychosis ([facility]) TAKE 1 TABLET BY MOUTH AT BEDTIME 90 tablet 025 Active triamcinolone (Kenalog) 0.1 % creamIndications:D yshydrosis APPLY TO THE AFFECTED AREA(S) TWICE DAILY TWICE DAILY IN THE MORNING AND AT BEDTIME 30 g 1 025 Active Bisacodyl EC 5 MG EC tablet TAKE TWO TABLETS EVERY DAY AT BEDTIME Active carvedilol (Coreg) 12.5 MG tablet TAKE ONE TABLET TWICE DAILY IN THE MORNING AND AT BEDTIME WITH FOOD 025 Active gabapentin (Neurontin) 300 MG capsuleIndications :Complains of low back pain TAKE ONE CAPSULE EVERY MORNING and TAKE TWO CAPSULES EVERY DAY AT BEDTIME 90 capsule 5 025 Active traMADol (Ultram) 50 MG tabletIndications: Chronic right shoulder pain,Pain in right shoulder,Back pain, unspecified back location, unspecified back pain laterality, unspecified chronicity TAKE ONE TABLET EVERY 8 HOURS NEEDED FOR SEVERE PAIN 84 tablet 025 Active acetaminophen (Tylenol 8 Hour) 650 MG ER tabletIndications: Chronic pain syndrome,Sore throat,Bacterial conjunctivitis TAKE TWO TABLETS EVERY 8 HOURS NEEDED FOR PAIN, DO NOT EXCEED SIX TABLETS IN 24 HOURS 40 tablet 1 025 Active triamcinolone (Kenalog) 0.1 % creamIndications:S kin rash Apply topically if needed in the morning and at bedtime (pain and swelling). 80 g 2 025 Active cetirizine (ZyrTEC) 10 MG tabletIndications: Skin rash Take 1 tablet (10 mg) by mouth Once per day. 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, initial encounter ([facility]) TAKE ONE TABLET EVERY 6 HOURS NEEDED FOR SEVERE PAIN FOR UP TO FIVE DAYS 15 tablet 025 Active SM Vitamin D3 50 MCG capsule TAKE ONE CAPSULE EVERY MORNING 022 01/12 Discontinued( Med list cleanup (will not trigger notification to Pharmacy)) clopidogrel (Plavix) 75 MG tabletIndications: Peripheral arterial occlusive disease ([facility]) TAKE ONE TABLET EVERY MORNING 90 tablet 3 023 01/12 Discontinued( Med list cleanup (will not trigger notification to Pharmacy)) isosorbide mononitrate ER (Imdur) 60 MG 24 hr tabletIndications: Benign essential hypertension TAKE ONE TABLET EVERY MORNING 90 tablet 1 024 01/12 Discontinued( Med list cleanup (will not trigger notification to Pharmacy)) fluticasone (Flovent HFA) 110 MCG/ACT inhalerIndications :Moderate persistent asthma without complication INHALE TWO PUFFS TWICE DAILY, RINSE MOUTH AFTER USE 12 g 11 024 01/12 Discontinued( Med list cleanup (will not trigger notification to Pharmacy)) gabapentin (Neurontin) 300 MG capsuleIndications :Complains of low back pain TAKE ONE CAPSULE EVERY MORNING and TAKE TWO CAPSULES EVERY DAY AT BEDTIME 90 capsule 5 025 01/09 Discontinued traMADol (Ultram) 50 MG tabletIndications: Chronic right shoulder pain,Pain in right shoulder,Back pain, unspecified back location, unspecified back pain laterality, unspecified chronicity Take 1 tablet (50 mg) by mouth every 8 (eight) hours if needed for severe pain. Do not start before November 27, 2024. 84 tablet 025 01/12 Discontinued acetaminophen (Tylenol 8 Hour) 650 MG ER tabletIndications: Chronic pain syndrome,Sore throat,Bacterial conjunctivitis TAKE TWO TABLETS EVERY 8 HOURS NEEDED FOR PAIN. 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 15 tablet 025 01/21 Discontinued Active Problems Problem Noted Date Diagnosed [...] chronic back and shoulder pain. Gets regular [employer] follow up and has Narcan prescribed. Has [...] chronic back and shoulder pain. Gets regular [employer] follow up and has Narcan prescribed. Will [...] chronic back and shoulder pain. Gets regular [employer] follow up and has Narcan prescribed. He [...] chronic back and shoulder pain. Gets regular [employer] follow up and has Narcan prescribed. He [...] chronic back and shoulder pain. Gets regular [employer] follow up and has Narcan prescribed. F/U with me in 3 months. He agrees with the plan. Assessment & Plan (10/02/2022 10:49 AM EDT): Prior history suicide attempts and hospitalizations. Still doing extremely well. Hallucinations controlled. Continue Risperidone 3 mg daily. He also takes Tramadol 50 mg TID prn and Gabapentin 600 mg TID for chronic back and shoulder pain. Gets regular [employer] follow up and has Narcan prescribed. 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, initial encounter ([facility]) 01/15/2025 Telephone [facility] [address] [place] [address] Juan Miguel Tinajero MD Results 01/14/2025 9:15 AM EDT Office Visit [facility] [address] [place] [address] Juan Miguel Tinajero MD 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, initial encounter ([facility]) (Primary Dx); Skin rash; Type 2 diabetes mellitus with hyperglycemia, with long-term current use of insulin ([facility]) 01/14/2025 Orders Only [facility] [address] [place] [address] Juan Miguel Tinajero MD Normocytic anemia (Primary Dx) 01/14/2025 Travel 01/14/2025 Refill [facility] [address] [place] [address] Juan Miguel Tinajero MD Chronic pain syndrome; Sore throat; Bacterial conjunctivitis 01/13/2025 Telephone [facility] [address] [place] [address] Juan Miguel Tinajero MD Chart Prep 01/12/2025 Telephone [facility] [address] [place] [address] Juan Miguel Tinajero MD Hospital Follow-up 01/12/2025 Refill [facility] [address] [place] [address] Juan Miguel Tinajero MD Chronic right shoulder pain; Pain in right shoulder; Back pain, unspecified back location, unspecified back pain laterality, unspecified chronicity 01/08/2025 Refill [facility] [address] [place] [address] Juan Miguel Tinajero MD Complains of low back pain 01/07/2025 Patient Outreach [facility] [address] [place] [address] Juan Miguel Tinajero MD 12/29/2024 Patient Outreach [facility] [address] [place] [address] Juan Miguel Tinajero MD Care Coordination (CP Care Coordination Chart Review) 12/29/2024 Patient Outreach [facility] [address] [place] [address] Juan Miguel Tinajero MD 12/27/2024 Refill [facility] [address] [place] [address] Juan Miguel Tinajero MD Complains of low back pain 12/22/2024 Orders Only GENERIC EXTERNAL DATA DEPARTMENT Provider, Generic External Data 12/18/2024 9:00 AM EDT Office Visit [facility] OPT[facility]ET[facility] [address] [place] [address] LibanOneida, OD Presbyopia (Primary Dx) 12/17/2024 Refill [facility] [address] [place] [address] Juan Miguel Tinajero MD Chronic pain syndrome; Sore throat; Bacterial conjunctivitis 12/07/2024 Refill [facility] [address] [place] [address] Juan Miguel Tinajero MD Chronic pain syndrome; Sore throat; Bacterial conjunctivitis 12/05/2024 Refill [facility] [address] [place] [address] Juan Miguel Tinajero MD Dyshydrosis 12/04/2024 Refill [facility] [address] [place] [address] Juan Miguel Tinajero MD MDD (major depressive disorder), recurrent, severe, with psychosis ([facility]) 11/29/2024 Refill [facility] [address] [place] [address] Juan Miguel Tinajero MD Benign essential hypertension; Peripheral arterial occlusive disease ([facility]) 11/26/2024 Refill [facility] [address] [place] [address] Juan Miguel Tinajero MD Chronic right shoulder pain; Pain in right shoulder; Back pain, unspecified back location, unspecified back pain laterality, unspecified chronicity 11/22/2024 Refill [facility] [address] [place] [address] Juan Miguel Tinajero MD Type 2 diabetes mellitus with both eyes affected by mild nonproliferative retinopathy without macular edema, with long-term current use of insulin ([facility]) 11/19/2024 10:00 AM EDT Office Visit [facility] [address] [place] [address] Liban, Oneida, OD Moderate nonproliferative diabetic retinopathy of both eyes without macular edema associated with type 2 diabetes mellitus ([facility]) (Primary Dx); Choroidal nevus of right eye; Combined forms of age-related cataract of both eyes; Meibomian gland dysfunction (MGD) of upper and lower lids of both eyes; Presbyopia 11/19/2024 Travel 11/18/2024 Results Follow-Up [facility] [address] [place] [address] Fiona Kathleen MD POCT Glucose, Comprehensive Metabolic Panel, CBC auto differential 11/17/2024 1:20 PM EDT Office Visit [facility] [address] [place] [address] Fiona Kathleen MD Anorexia (Primary Dx) 11/17/2024 Travel 11/15/2024 Refill [facility] [address] [place] [address] Jazmin Ochoa MD Type 2 diabetes mellitus with diabetic peripheral angiopathy without gangrene, with long-term current use of insulin ([facility]) 11/11/2024 9:00 AM EDT Clinical Support [facility] [address] [place] [address] Elsa Barnett RN Chronic low back pain with sciatica, sciatica laterality unspecified, unspecified back pain laterality 11/11/2024 Travel 11/11/2024 Refill [facility] [address] [place] [address] Juan Miguel Tinajero MD Type 2 diabetes mellitus with other circulatory complication, with long-term current use of insulin ([facility]) 11/10/2024 Refill [facility] [address] [place] [address] Juan Miguel Tinajero MD Chronic pain syndrome; Sore throat; Bacterial conjunctivitis 10/30/2024 Refill [facility] [address] [place] [address] Elsa Barnett RN Chronic right shoulder pain; Pain in right shoulder; Back pain, unspecified back location, unspecified back pain laterality, unspecified chronicity 10/30/2024 Telephone [facility] [address] [place] [address] Juan Miguel Tinajero MD from Last 3 Months Immunizations Immunization Administration Dates Next Due Hep B, adult 05/23/2024,08/21/2022,07/24/2022 Influenza Injectable Quadriv alant Preservative Free IIV4 MDCK 04/14/2021 Influenza injectable quadriv alent IIV4 with preservative 04/23/2017,02/17/2016 Influenza injectable quadriv alent preservative free 03/13/2023,02/22/2022,03/31/2020 Influenza, IIV3, injectable 02/23/2014 Influenza, seasonal, injecta ble, preservative free 05/14/2024 Moderna Covid-19 Vaccine 12+ 05/03/2021,09/28/19 21,08/30/2020 Pfizer Covid-19 Vaccine 12+ 05/14/2024, 3,02/28/2022 Pfizer Covid-19 Vaccine 12+ Bivalent 02/28/2022 Pneumococcal [...] Date Recorded Patient Health Questionnaire-9 Score 0 01/14/2025 Patient Health Questionnaire-9 Score 0 01/14/2025 Last PHQ-9: Questionnaire Data Not on file 0 01/14/2025 Housing Stability Answer Date Recorded What is [...] Date Recorded Patient Health Questionnaire-2 Score 0 01/14/2025 Internet Access Answer Date Recorded Internet Access [...] Sign Reading Time Taken Comments Blood Pressure 162/88 01/14/2025 9:11 AM EDT Pulse 82 01/14/2025 9:11 AM EDT Temperature 37 C (98.6 F) 01/14/2025 9:11 AM EDT Respiratory Rate 20 01/14/2025 9:11 AM EDT Oxygen Saturation 98% 01/14/2025 9:11 AM EDT Inhaled Oxygen Concentration - - Weight 89.1 kg (196 lb 6.4 oz) 01/14/2025 9:11 A M EDT Height 162.6 cm (5' 4 ) 01/14/2025 9:11 AM EDT Body Mass Index 33.71 01/14/2025 9:11 AM EDT Plan of Treatment Upcoming Encounters Date Type Department Care Team (Late st Contact Info) Description 02/02/2025 9:30 AM EDT Telemedicine [facility] [address] [place] [address] Elsa Barnett RN [address] [place] [address] 02/17/2025 9:15 AM EDT Office Visit [facility] [address] [place] [address] Juan Miguel Tinajero MD [address] [place] [address] Health Maintenance Due Date Last Done Comments CT Colonography 1960 Dental Oral Exam 1960 Dental Prophylaxis 1960 Dental X-Ray: Bitewings 1960 Dental X-Ray: Full Mouth 1960 FIT DNA/Cologuard 1960 FIT 1960 FOBT 1960 HIV Screening 1960 Sigmoidoscopy 1960 Hepatitis C Screening 1978 Diabetes: Urine Protein Screening 1979 RSV Patients and Patients Aged 60 years or older (1 - Risk 60-74 years 1-dose series) 2020 SDOH Screening 08/30/2023 08/29/2022 Colonoscopy 10/06/2023 10/05/2022, 08/16/2021 Colorectal Cancer Screening 10/06/2023 Influenza Vaccine (#1) 2025 , 03/13/2023, 02/22/2022, Additional history exists Diabetes: Hemoglobin A1C 04/16/2025 025, 09/23/2024, 05/14/2024, Additional history exists Diabetes: Foot Exam 05/14/2025 05/14/2024, 03/13/2023, 03/13/2023, Additional history exists Lipid Panel 05/14/2025 05/14/2024, 07/27/2022 Eye Exam 11/19/2025 11/19/2024, 10/27, 11/19/2024, Additional history exists Tobacco Screening 12/08/2025 12/08/2024 Alcohol/Substance Use Screening 01/14/2026 01/14/2025 Depression Screening 01/14/2026 01/14/2025, 01/15/20 Disability Screening 01/14/2026 01/14/2025 DTaP/Tdap/Td Vaccines (3 - Td or Tdap) 05/23/2034 05/23/2024, 01/21/2014 Zoster Vaccines Completed 06/22/2020, 04/01/2020 Pneumococcal Vaccine: 50+ Years Completed 07/31/2023, 12/10/2015 COVID-19 Vaccine Completed 05/14/2024, , 02/28/2022, Additional history exists Hepatitis B Vaccines Completed [...] Pressure 162/88(2024 9:11 AM EDT) No Juan Cordova PharmD Hemoglobin A1c < 7 Result Component 7.7( 10:26 AM EDT) No Juan Cordova PharmD Procedures Procedure Name Priority Date/Time Associated Diagnosis Comments POCT GLYCATED HEMOGLOBIN, TOTAL Routine 01/14/2025 10:26 AM EDT Type 2 diabetes mellitus with hyperglycemia, with long-term current use of insulin ([facility]) POCT GLUCOSE Routine 01/14/2025 10:25 AM EDT Type 2 diabetes mellitus with hyperglycemia, with long-term current use of insulin ([facility]) BASIC METABOLIC PANEL Routine 01/14/2025 10:08 AM EDT 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, initial encounter ([facility]) Type 2 diabetes mellitus with hyperglycemia, with long-term current use of insulin ([facility]) CBC WITH AUTO DIFFERENTIAL Routine 01/14/2025 10:08 AM EDT 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, initial encounter ([facility]) Type 2 diabetes mellitus with hyperglycemia, with long-term current use of insulin ([facility]) GLUCOSE, WHOLE BLOOD Routine 12/22/2024 6:43 AM EDT OCT, RETINA - OU - BOTH EYES Routine 11/19/2024 10:00 AM EDT Moderate nonproliferative diabetic retinopathy of both eyes without macular edema associated with type 2 diabetes mellitus ([facility]) CBC WITH AUTO DIFFERENTIAL Routine 11/18/2024 8:14 AM EDT Anorexia COMPREHENSIVE METABOLIC PANEL Routine 11/18/2024 8:14 AM EDT Anorexia POCT GLUCOSE Routine 11/17/2024 1:29 PM EDT Anorexia POCT RACHEL-14 URINE DRUG SCREEN Routine 11/11/2024 8:58 AM EDT Chronic low back pain with sciatica, sciatica laterality unspecified, unspecified back pain laterality LIPID PANEL, STANDARD Routine 05/14/2024 10:41 AM EST Type 2 diabetes mellitus with hyperglycemia, with long-term current use of insulin ([facility]) COLONOSCOPY Routine 10/05/2022 from Last 3 Months or Most Recently Relevant to Health Maintenance Results * (ABNORMAL) POCT HGB A1C (01/14/2025 10:26 AM EDT) Hemoglobin A1C 7.7(A) 4.0 - 5.7 % QC Media Lot # [id number] Lot# Expiration Date , Blood 01/14/2025 10:2 6 AM EDT Juan Miguel Tinajero MD POINT OF CARE TEST ENTER/ED IT ORDERABLES Final Result * POCT Glucose (01/14/2025 10:25 AM EDT) Only the most recent of2 resultswithin the time period is included. Glucose Blood, POC 152 60 - 200 mg/dL QC Media Lot # [id number] Lot# Expiration Date Blood Capillary blood specimen / Unknown 01/14/2025 10:25 AM EDT us Juan Miguel Tinajero MD POINT OF CARE TEST ENTER/ED IT ORDERABLES Final Result * (ABNORMAL) CBC auto differential (01/14/2025 10:08 AM EDT) Only the most recent of2 resultswithin the time period is included. White Blood Count 7.8 4.8 - 10.8 X10*3/uL [facility] Red Blood Count 3.68(L) 4.60 - 5.80 X10*6/uL [facility] Hemoglobin 10.0(L) 14.0 - 18.0 g/dl [facility] Hematocrit 30.8(L) 42.0 - 52.0 % [facility] Mean Corpuscular Volume 83.7 80.0 - 98.0 fL [facility] Mean Corpuscular Hemoglobin 27.2 27.0 - 33.0 pg [facility] Mean Corpuscular HGB Conc 32.5 31.0 - 36.0 g/dl [facility] Red Cell Distribution Width 15.5 11.0 - 16.0 % [facility] Platelet Count 298 160 - 400 X10*3/uL [facility] Mean Platelet Volume 10.7 9.4 - 12.4 fL [facility] Neutrophils Percent Auto 74.5(H) 45 - 73 % [facility] Imm Gran Pct Auto 0.3 0.0 - 0.4 % [facility] Lymphocytes Percent Auto 13.3(L) 20 - 40 % [facility] Monocytes Percent Auto 5.6 2 - 11 % [facility] Eosinophils Percent Auto 5.8(H) 0 - 4 % [facility] Basophils Percent Auto 0.5 0 - 2 % [facility] NRBC Pct Auto 0.0 0.0 - 0.2 /100WBC [facility] Neutrophils Absolute Auto 5.8 2.0 - 8.3 x10*3/uL [facility] Imm Gran Abs Auto 0.02 0.00 - 0.03 X10*3/uL [facility] Lymphocytes Absolute Auto 1.0(L) 1.2 - 4.9 X10*3/uL [facility] Monocytes Absolute Auto 0.4 0.1 - 1.2 X10*3/uL [facility] Eosinophils Absolute Auto 0.5(H) 0.0 - 0.4 X10*3/uL [facility] Basophils Absolute Auto 0.0 0.0 - 0.2 X10*3/uL [facility] NRBC Abs Auto 0.000 0.0 - 0.012 X10*3/uL [facility] Blood Venous blood specimen / Unknown 01/14/2025 10:08 AM EDT 01/14/2025 2:34 PM EDT us Juan Miguel Tinajero MD LAB BLOOD ORDERABLES Final Result [facility] [address] [place] [phone] * (ABNORMAL) Basic Metabolic Panel (01/14/2025 10:08 AM EDT) Sodium 142 135 - 145 mmol/L [facility] Potassium 4.0 3.3 - 5.1 mmol/L [facility] Chloride 107 96 - 108 mmol/L [facility] Carbon Dioxide 24 22 - 29 mmol/L [facility] Anion Gap 15 12 - 20 [facility] [facility] Urea Nitrogen (BUN) 11 9 - 16 mg/dL [facility] Creatinine, Serum 1.19 0.5 - 1.4 mg/dL [facility] Estimated Glomerular Filt Rate >60 [facility] Comment:Chronic Kidney Disea se: Estimated GFR < 60 mL/min/1.46m0Pwbzxx Kidney Disease: Estimated GFR < 15 mL/min/1.73m2 Glucose 130(H) 60 - 115 mg/dL [facility] Calcium 9.2 8.4 - 10.2 mg/dL [facility] Blood Venous blood specimen / Unknown 01/14/2025 10:08 AM EDT 01/14/2025 2:34 PM EDT us Juan Miguel Tinajero MD LAB BLOOD ORDERABLES Final Result Performing Organization Address City/[facility]/ZIP Co de Phone Number [facility] [address] [place] [phone] * (ABNORMAL) Glucose, Whole Blood (12/22/2024 6:43 AM EDT) Glucose, Whole Blood 154(H) 60 - 115 mg/dL [facility] Comment:METER #: [id number] 12/22/2024 6:43 AM EDT 12/22/2024 6:47 AM EDT us Generic External Data Provider LAB BLOOD ORDERAB LES Final Result Performing Organization Address [facility] Co de Phone Number [facility] [address] [place] [phone] * OCT, Retina - OU - Both Eyes (11/19/2024 10:00 AM EDT) Oneida Mayer, OD - 12/05/2024 10:47 AM EDT Images from the original result were not included. OCT [facility] [employer] Optical Coherence Tomography Interpretation Report Measurements: OD OS Macula Thickness 218 microns 214 microns Test findings: OD: Normal foveal contour, no cystoid macular edema (CME), no retinal pigment epithelium (RPE) disruption, no subretinal fluid (SRF) OS: Normal foveal contour, no cystoid macular edema (CME), no retinal pigment epithelium (RPE) disruption, no subretinal fluid (SRF) Impression and Plan Mild non-proliferative diabetic retinopathy (NPDR) in right eye. Moderate non-proliferative diabetic retinopathy (NPDR) in the left eye. No macular edema in either eye. Will monitor at her next exam. us Oneida Louie OD OPHTH TOMOGRAPHY Final Result * (ABNORMAL) Comprehensive Metabolic Panel (11/18/2024 8:14 AM EDT) Sodium 142 135 - 145 mmol/L [facility] Potassium 3.8 3.3 - 5.1 mmol/L [facility] Chloride 107 96 - 108 mmol/L [facility] Carbon Dioxide 27 22 - 29 mmol/L [facility] Anion Gap 12 12 - 20 [facility] Urea Nitrogen (BUN) 15 9 - 16 mg/dL [facility] Creatinine, Serum 1.38 0.5 - 1.4 mg/dL [facility] Estimated Glomerular Filt Rate 52 [facility] Comment:Chronic Kidney Disea se: Estimated GFR < 60 mL/min/1.86p5Zwofem Kidney Disease: Estimated GFR < 15 mL/min/1.73m2 Glucose 200(H) 60 - 115 mg/dL [facility] Calcium 8.9 8.4 - 10.2 mg/dL [facility] Bilirubin, Total 0.4 0.0 - 1.0 mg/dL [facility] Aspartate Amino Transferase 24 5 - 37 U/L [facility] Alanine Aminotransferase 18 0 - 40 U/L [facility] Total Protein 6.9 6.5 - 8.0 g/dL [facility] Albumin Level 4.0 3.5 - 5.0 g/dL [facility] Alkaline Phosphatase 82 39 - 117 U/L [facility] Blood Venous blood specimen / Unknown 11/18/2024 8:14 AM EDT 11/18/2024 1:58 PM EDT us Fiona Kathleen MD LAB BLOOD ORDERABLES Final Re sult [facility] [address] [place] [phone] [phone] * POCT RACHEL-14 Urine Drug Screen (11/11/2024 8:58 AM EDT) THC Negative Cocaine Screen, Urine Negative Opiate Screen, Urine Negative Methamphetamine Screen Urine Negative Amphetamine Screen, Urine Negative Benzodiazepines Screen, Urine Negative Barbiturate Screen, Urine Negative Methadone Screen, Urine Negative Buprenophine Screen, Urine Negative TCA, Urine Negative MDMA Urine Negative ng/mL Oxycodone Screen, Urine Negative Phencyclidine (PCP), Urine Negative Propoxyphene, Urine Negative Fentanyl, Urine Negative Urine Urine specimen obtained by clean catch procedure / Unknown 11/11/2024 8:58 AM EDT Narrative Elsa Barnett RN - 11/11/2024 8:58 AM EDT Internal Pass Control Lot# [id number] Exp: 03-27-26 us Juan Miguel Tinajero MD POINT OF CARE TEST ENTER/ED IT ORDERABLES Final Result * Lipid Panel, Standard (05/14/2024 10:41 AM EST) Triglycerides 71 <150 mg/dL [facility] Comment:Desirable Triglyceri de: less than 150 mg/dLBorderline High Triglyceride 150-199 mg/dLHigh Triglyceride: 200-499 mg/dLVery High Triglyceride: greater than or equal to 5OO mg/dL Cholesterol 122 <200 mg/dL [facility] Comment:Desirable Cholestero l: less than 200 mg/dLBorderline High Cholesterol: 200-239 mg/dLHigh Cholesterol: greater than 239 mg/dL LDL Cholesterol Calculated 64 <100 mg/dL [facility] Comment:Desirable LDL: less than 100 mg/dLNear Optimal/Above Optimal LDL: 110- 129 mg/dLBorderline High LDL: 130-159 mg/dLHigh LDL: 160-189 mg/dLVery High LDL: greater than or equal to 190 mg/dL HDL Cholesterol 44 >40 mg/dL [facility] Comment:Desirable HDL: great er than 40 mg/dL Note: This HDL assay may give artificially low results in patients with liver disease. Blood Venous blood specimen / Unknown 05/14/2024 10:41 AM EST 05/14/2024 2:06 PM EST us Juan Miguel Tinajero MD LAB BLOOD ORDERABLES Final Result [facility] [address] [place] [phone] * (ABNORMAL) Colonoscopy (10/05/2022) Anatomical Region Laterality Modality Endoscopy Narrative 10/05/2022 Poor prep johnathon right side internal hemorrhoids. us Historical Provider MD ENDOSCOPY PROCEDURE ORDER XANDER Final Result from Last 3 Months or Most Recently Relevant to Health Maintenance Insurance [facility] C3 DENTAL-[facility] MEDICAID STAND ADULT Care Teams Bulk Pallet Builder Relationship Specialty Start Date End Date Juan Miguel Tinajero MD [address] [place] [address] PCP - General Internal Medicine 05/28/18 Juan Cordova, EbonieD [address] [place] [address] Pharmacist Internal Medicine 07/14/22 Yvonne Knox Skin TannerMerchandising Execution Manager 02/15/23 Yvonne Knox Skin TannerMerchandising Execution Manager 04/09/24
--- OUTSIDE RECORDS SUMMARY | 2025-01-28 08:58 | XMS_ITS | Encounter Summary ---
Author Organization [employer] Address [address] [facility] 7t [place] [address] Care Team Providers Care Postdoctoral Fellow Name Role Phone Juan Miguel Tinajero MD Primary Care Provider [phone] Juan Cordova PharmD Unavailable Unavail able Aidee Mejia Unavailable Reason for Visit * Reason Onset Date Comments ER Follow-up 07/20/2023 Encounter Details Date Type Department Care Team (Late st Contact Info) Description 07/20/2023 Telephone [facility] MEDICINE [address] [place] [address] Juan Miguel Tinajero MD [address] [place] [address] ER Follow-up Social History Tobacco Use Types [...] AM EST TC placed to patient via [employer] regarding message below. Patient reports that 8 days ago, he had a fall and hit his L side and was evaluated at [facility] ED. They said he didn't break anything, but he is continuing to have L-sided pain in the area of his ribs. He denies bruising in the area,and he says that aspirin, tramadol, and another anti-inflammatory that was prescribed are not helping. Denies other symptoms. Advised to go to [place] at [facility] today for evaluation and patient agrees. Patient [...] ED visit on : Date: 07/12/2023 Hospital: [facility] Seen for: Fall Patient advised will forward to team nurse for follow up. Symptom: Chest Injury Outcome: Talk to a nurse or provider within 15 minutes Reason: Left Rib The caller accepted this outcome Yvonne Roseline [phone] * Telephone Encounter - Tsering Pastrana - 07/20/2023 11:40 AM EST Patient calling to report ED visit on : Date: 07/12/2023 Hospital: [facility] Seen for: Fall Patient advised will forward to team nurse for follow up. Symptom: Chest Injury Outcome: Talk to a nurse or provider within 15 minutes Reason: Left Rib The caller accepted this outcome Yvonne [facility] [phone] documented in this encounter Plan of Treatment Upcoming Encounters Date Type Department Care Team (Late st Contact Info) Description 02/02/2025 9:30 AM EDT Telemedicine [facility] PEDS [address] [place] [address] Elsa Barnett RN [address] [place] [address] 02/17/2025 9:15 AM EDT Office Visit [facility] [address] [place] [address] Juan Miguel Tinajero MD [address] [place] [address] documented as of this encounter Goals Goal Patient Goal Type Associated Problems Recent Progress Patient-Stated? Author Blood Pressure < 140/90 Blood Pressure 162/88(2024 9:11 AM EDT) No DellogJuan mtz, PharmD Hemoglobin A1c < 7 Result Component 7.7( 10:26 AM EDT) No DellogKaleb mtzis, PharmD documented as of this encounter Visit Diagnoses Not on filedocumented in this encounter Additional Health Concerns Assessment Noted Time PHQ-9 Depression Total Score: 3 07/03/19 24 9:13 AM EST documented as of this encounter Care Teams Postdoctoral Fellow Relationship Specialty Start Date End Date Juan Miguel Tinajero MD [address] [place] [address] PCP - General Internal Medicine 05/28/18 Juan Cordova, PharmD [address] [place] [address] Pharmacist Internal Medicine 07/14/22 Aidee Mejia 12/29/24 01/07/25 Yvonne Knox Financial Services TechnicianSoft Metals Engraver Hand 02/15/23 Yvonne Knox Financial Services TechnicianSoft Metals Engraver Hand 04/09/24 documented as of this encounter
--- OUTSIDE RECORDS SUMMARY | 2025-01-28 08:58 | XMS_ITS | Clinical Summary ---
Author Organization [facility] ity Address [address] [place] [address] Care Team Providers Care Quality Review Trainer Name Role Phone Unavailable Primary Care Provider [...]
--- OUTSIDE RECORDS SUMMARY | 2025-01-28 08:58 | XMS_ITS | Encounter Summary ---
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 JAVA ARCHITECT appt on 09/09/24 converted to a televisit. documented in this encounter Plan of Treatment Upcoming Encounters Date Type Department Care Team (Late st Contact Info) Description 02/02/2025 9:30 AM EDT Telemedicine [facility] MED & PEDS [address] [place] [address] Elsa Barnett RN [address] [place] [address] 02/17/2025 9:15 AM EDT Office Visit [facility] MED & PEDS [address] [place] [address] Juan Miguel Tinajero MD [address] [place] [address] documented as of this encounter Goals Goal Patient Goal Type Associated Problems Recent Progress Patient-Stated? Author Blood Pressure < 140/90 Blood Pressure 162/88(2024 9:11 AM EDT) No Juan Cordova PharmConstantin Hemoglobin A1c < 7 Result Component 7.7( 10:26 AM EDT) No Juan Cordova PharmD documented as of this encounter Visit Diagnoses Diagnosis Dyshydrosis Dyshidrosis documented in this encounter Additional Health Concerns Assessment Noted Time PHQ-9 Depression Total Score: 0 10/30/19 10:10 AM EDT documented as of this encounter Care Teams University Administrator Relationship Specialty Start Date End Date Juan Miguel Tinajero MD [address] [place] [address] PCP - General Internal Medicine 05/28/18 Juan Cordova, PharmD [address] [place] [address] Pharmacist Internal Medicine 07/14/22 Aidee Mejia 12/29/24 01/07/25 Yvonne Knox Maintenance Shop ClerkDeputy K 9 02/15/23 Yvonne Knox Maintenance Shop ClerkDeputy K 9 04/09/24 documented as of this encounter
--- OUTSIDE RECORDS SUMMARY | 2025-01-28 08:58 | XMS_ITS | Encounter Summary ---
Author Organization [employer] Address [address] [facility] 7[address] [place] [address] Care Team Providers Care Retail Zone Specialist Name Role Phone Juan Miguel Tinajero MD Primary Care Provider [phone] Juan Cordova PharmD Unavailable Unavail able Aidee Mejia Unavailable Encounter Details Date Type Department Care Team ([facility] Contact Info) Description 09/26/2023 Orders Only [facility] MED & PEDS [address] [place], [place] [phone] Juan Miguel Tinajero MD [address] [place] [address] Social History Tobacco Use Types Packs/Day Years [...] 02/02/2025 9:30 AM EDT Telemedicine [facility] MED & PEDS [address] [place] [address] Elsa Barnett RN [address] [place] [address] 02/17/2025 9:15 AM EDT Office Visit [facility] MED & PEDS [address] [place] [address] Juan Miguel Tinajero MD [address] [place] [address] documented as of this encounter Goals Goal [...] documented as of this encounter Care Teams Retail Zone Specialist Relationship Specialty Start Date End Date Juan Miguel Tinajero MD [address] [place] [address] PCP - General Internal Medicine 05/28/18 Juan Cordova, EbonieD [address] [facility] [place] [address] Pharmacist Internal Medicine 07/14/22 Aidee Mejia 12/29/24 01/07/25 Yvonne Knox Retail ClerkInternational Manager 02/15/23 Yvonne Knox Retail ClerkInternational Manager 04/09/24 documented as of this encounter
--- OUTSIDE RECORDS SUMMARY | 2025-01-28 08:58 | XMS_ITS | Encounter Summary ---
Author Organization [employer] Address [address] [facility] [address] [place] [address] Care Team Providers Care Soft Work Wrapper Examiner Name Role Phone Juan Miguel Tinajero MD Primary Care Provider [phone] Juan Cordova PharmD Unavailable Unavail able Aidee Mejia Unavailable Encounter Details Date Type Department Care Team ([facility] Contact Info) Description 05/05/2022 Orders Only [facility] MEDICINE [address] [place], [place] [phone] Juan Miguel Tinajero MD [address] [place], [place] [phone] Social History Tobacco Use Types Packs/Day Years [...] Upcoming Encounters Date Type Department Care Team ([facility] Contact Info) Description 02/02/2025 9:30 AM EDT Telemedicine [facility] CHC MED & PEDS [address] [place] [address] Elsa Barnett, JENS [address] [place] [address] 02/17/2025 9:15 AM EDT Office Visit [facility] CHC MED & PEDS [address] [place] [address] Juan Miguel Tinajero MD [address] [place] [address] documented as of this encounter Goals Goal Patient Goal Type Associated Problems Recent Progress Patient-Stated? Author Hemoglobin A1c < 7 Result Component 7.7(01/14/2025 10:26 AM EDT) No Juan Cordova, PharmD documented as of this encounter Visit Diagnoses Not on filedocumented in this encounter Care Teams Soft Work Wrapper Examiner Relationship Specialty Start Date End Date Juan Miguel Tinajero MD [address] [place] [address] PCP - General Internal Medicine 05/28/18 Juan Cordova, PharmD [address] [place] [address] Pharmacist Internal Medicine 07/14/22 Aidee Mejia 12/29/24 01/07/25 Yvonne Knox Buffet ManagerRoving Winder 02/15/23 Yvonne Knox Buffet ManagerRoving Winder 04/09/24 documented as of this encounter
--- OUTSIDE RECORDS SUMMARY | 2025-01-28 08:58 | XMS_ITS | Encounter Summary ---
Author Organization [employer] Address [address] [facility] 7 [place] [address] Care Team Providers Care Caramel Cutter Helper Name Role Phone Juan Miguel Tinajero MD Primary Care Provider [phone] Juan Cordova PharmD Unavailable Unavail able Aidee Mejia Unavailable Reason for Visit * Reason Comments Med Refill Encounter Details Date Type Department Care Team ([facility] st Contact Info) Description 09/21/2023 Refill [facility] CH[facility] MED & PEDS [address] [place], [place] [phone] Juan Miguel Tinajero MD [address] [place] [address] Chronic right shoulder pain; Pain in right [...] Info) Description 02/02/2025 9:30 AM EDT Telemedicine [facility] MED & PEDS [address] [place] [address] Elsa Barnett RN [address] [place] [address] 02/17/2025 9:15 AM EDT Office Visit [facility] MED & PEDS [address] [place] [address] Juan Miguel Tinajero MD [address] [place] [address] documented as of this encounter Goals Goal [...] documented as of this encounter Care Teams Caramel Cutter Helper Relationship Specialty Start Date End Date Juan Miguel Tinajero MD [address] [place] [address] PCP - General Internal Medicine 05/28/18 Juan Cordova PharmD [address] [place] [address] Pharmacist Internal Medicine 07/14/22 Aidee Mejia 12/29/24 01/07/25 Yvonne Knox Physical Therapy ResidentGreige Goods Marker 02/15/23 Yvonne Knox Physical Therapy ResidentGreige Goods Marker 04/09/24 documented as of this encounter
--- OUTSIDE RECORDS SUMMARY | 2025-01-28 08:58 | XMS_ITS | Encounter Summary ---
Author Organization [employer] Address [address] [facility] 7t [place] [address] Care Team Providers Care Hospitality Workers Name Role Phone Juan Miguel Tinajero MD Primary Care Provider [phone] Juan Cordova PharmD Unavailable Unavail able Encounter Details Date Type Department Care Team ([facility] st Contact Info) Description 01/14/2025 Orders Only [facility] CHC MED & PEDS [address] [place], [place] [phone] Juan Miguel Tinajero MD [address] [place] [address] Normocytic anemia (Primary Dx) Social History Tobacco Use Types [...] AM EDT documented as of this encounter Functional Status * Over the past 2 weeks, how often have you been bothered by any of the following problems? Question Answer Date of Assessment Author Patient Health Questionnaire-2 Score 0 12/27 9:12 AM EDT Magen Mandujano MA * Little interest or pleasure in doing things Answer Date of Assessment Author Not at all 01/14/2025 9:12 AM EDT Magen Mandujano MA * Feeling down, depressed, or hopeless Answer Date of Assessment Author Not at all 01/14/2025 9:12 AM EDT Magen Mandujano MA * Trouble falling or staying asleep, or sleeping too much Answer Date of Assessment Author Not at all 01/14/2025 9:12 AM EDT Magen Mandujano MA * Feeling tired or having little energy Answer Date of Assessment Author Not at all 01/14/2025 9:12 AM EDT Magen Mandujano MA * Poor appetite or overeating Answer Date of Assessment Author Not at all 01/14/2025 9:12 AM EDT Magen Mandujano MA * Feeling bad about yourself - or that you are a failure or have let yourself or your family down Answer Date of Assessment Author Not at all 01/14/2025 9:12 AM EDT Magen Mandujano MA * Trouble concentrating on things, such as reading the newspaper or watching television Answer Date of Assessment Author Not at all 01/14/2025 9:12 AM EDT Magen Mandujano MA * Moving or speaking so slowly that other people could have noticed? Or the opposite - being so fidgety or restless that you have been moving around a lot more than usual. Answer Date of Assessment Author Not at all 01/14/2025 9:12 AM EDT Magen Mandujano MA * Thoughts that you would be better off or hurting yourself in some way Answer Date of Assessment Author Not at all 01/14/2025 9:12 AM EDT Magen Mandujano MA * Patient Health Questionnaire-9 Score Answer Date of Assessment Author 0 01/14/2025 9:12 AM EDT Magen Mandujano MA documented as of this encounter Plan of Treatment Upcoming Encounters Date Type Department Care Team (Late st Contact Info) Description 02/02/2025 9:30 AM EDT Telemedicine [facility] MED & PEDS [address] [place] [address] Elsa Barnett RN [address] [place] [address] 02/17/2025 9:15 AM EDT Office Visit [facility] MED & PEDS [address] [place] [address] Juan Miguel Tinajero MD [address] [place] [address] Scheduled Orders Name Type Priority Associated Diagnoses Orde r Schedule CBC auto differential Lab Routine Normocytic anemia Expected: 01/14/2025 (Approximate), Expires: 01/14/2026 documented as of this encounter Goals Goal Patient Goal Type Associated Problems Recent Progress Patient-Stated? Author Blood Pressure < 140/90 Blood Pressure 162/88(2024 9:11 AM EDT) No Juan Cordova, PharmD Hemoglobin A1c < 7 Result Component 7.7( 10:26 AM EDT) No Juan Cordova, PharmD documented as of this encounter Visit Diagnoses Diagnosis Normocytic anemia- Primary Unspecified anemia documented in this encounter Additional Health Concerns Assessment Noted Time PHQ-9 Depression Total Score: 0 01/15/20 25 9:12 AM EDT documented as of this encounter Care Teams Hospitality Workers Relationship Specialty Start Date End Date Juan Miguel Tinajero MD [address] [facility] [place] [address] PCP - General Internal Medicine 05/28/18 Juan Cordova PharmD [address] [facility] [place] [address] Pharmacist Internal Medicine 07/14/22 Yvonne Knox Labor Relations AnalystPaper Folder 02/15/23 Yvonne Knox Labor Relations AnalystPaper Folder 04/09/24 documented as of this encounter
--- OUTSIDE RECORDS SUMMARY | 2025-01-28 08:58 | XMS_ITS | Encounter Summary ---
Author Organization [employer] Address [address] [facility] 7t [place] [address] Care Team Providers Care Msws Name Role Phone Juan Miguel Tinajero MD Primary Care Provider [phone] Juan Cordova PharmD Unavailable Unavail able Reason for Visit * Reason Comments Med Refill Encounter Details Date Type Department Care Team ([facility] Contact Info) Description 01/28/2025 Refill [facility] CHC MED & PEDS [address] [place] [address] Juan Miguel Tinajero MD [address] [place] [address] Social History Tobacco Use Types Packs/Day Years [...] 9:30 AM EDT Telemedicine [facility] MED & PEDS [address] [place] [address] Elsa Barnett RN [address] [place] [address] 02/17/2025 9:15 AM EDT Office Visit [facility] MED & PEDS [address] [place] [address] Juan Miguel Tinajero MD [address] [place] [address] documented as of this encounter Goals Goal [...] Time PHQ-9 Depression Total Score: 0 01/15/20 9:12 AM EDT documented as of this encounter Care Teams Msws Relationship Specialty Start Date End Date Juan Miguel Tinajero MD [address] [facility] [place] [address] PCP - General Internal Medicine 05/28/18 Juan Cordova PharmD [address] [facility] [place] [address] Pharmacist Internal Medicine 07/14/22 Yvonne Knox Foundry ManagerPackaging Sales Consultant 02/15/23 Yvonne nKox Foundry ManagerPackaging Sales Consultant 04/09/24 documented as of this encounter
--- OUTSIDE RECORDS SUMMARY | 2025-01-28 08:58 | XMS_ITS | Clinical Summary ---
Author Organization [facility] Address [address] [place] [place] [address] Phone Care Team Providers Care Spot Remover Name Role Phone Juan Miguel Tinajero MD Primary Care Provider [phone] Allergies No known active allergies Medications Acetaminophen [...] meals. 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 Gets regular DIRECTOR PAYMENT follow up and has Narcan prescribed. F/U [...] Encounters Date Type Department Care Team Description 12/31/2024 Refill [facility] [address] [place] [address] Ranjan Price MD from Last 3 Months Immunizations Immunization [...] Office Visit [facility] [address] [address] Aj Grajeda MD [address] [address] Health Maintenance Due Date Last Done Comments Colorectal Cancer Screening: Annual FOBT 2009 Colorectal Cancer Screening: Colonoscopy 2009 Colorectal Cancer Screening: Sigmoidoscopy 2009 Diabetes: Pedal Pulse Checked 03/28/2023 Diabetes: Sensory Foot Exam 03/28/2023 Diabetes: Visual Foot Exam 03/28/2023 Diabetes: Hemoglobin A1C 12/23/202409/23/ 025, 05/14/2024, 11/01/2023, Additional history exists Influenza Vaccine (#1) 2025 4, 03/13/2023, 02/22/2022, Additional history exists Diabetes: Ophthalmology Exam 11/19/2025 11/19/2024 Pneumococcal Vaccine: 50+ Years Completed 07/31/2023, 12/10/2015 [...] AM EDT) Hemoglobin A1C 6.6(H) (4.0-5.6) % [facility] Comment: MONITORING: In known diabetic patients, hemoglobin A1c targets should be discussed with health care provider. DIAGNOSTIC USE: The [place] Diabetes Association (ADA) and the World Health [...] Supplement 1 Testing performed or reported by [facility], a Service of [facility], [address] [place] [address] Zachary Sanders MD, Air Antisubmarine Officer [facility]# [id number] Blood specimen (specimen) Venous blood / Unknown 03/21/2023 8:20 AM EDT 03/21/2023 8:25 AM EDT us Aj Grajeda MD LAB BLOOD ORDERABLES Final Re sult [facility] from Last 3 Months or Most Recently Relevant to Health Maintenance Insurance Medicaid [place] Care Teams Spot Remover Relationship Specialty Start Date End Date Juan Miguel Tinajero MD [address] [place] [address] [id number] PCP - General Internal Medicine 02/11/21
--- OUTSIDE RECORDS SUMMARY | 2025-01-28 08:58 | XMS_ITS | Encounter Summary ---
Author Organization [employer] Address [address] [facility] 7t [place] [address] Care Team Providers Care Marine Fisheries Technician Name Role Phone Juan Miguel Tinajero MD Primary Care Provider [phone] Juan Cordova PharmD Unavailable Unavail able Aidee Mejia Unavailable Encounter Details Date Type Department Care Team ([facility] st Contact Info) Description 10/02/2023 Telephone [facility] MEDICINE [address] [place] [address] Juan Miguel Tinajero MD 505 [place] [address] Social History Tobacco Use Types Packs/Day Years [...] 02/02/2025 9:30 AM EDT Telemedicine [facility] MED & PEDS 505 [place] [address] Elsa Barnett RN 505 [place] [address] 02/17/2025 9:15 AM EDT Office Visit [facility] MED & PEDS 505 [place] [address] Juan Miguel Tinajero MD 505 [place] [address] documented as of this encounter Goals Goal [...] documented as of this encounter Care Teams Marine Fisheries Technician Relationship Specialty Start Date End Date Juan Miguel Tinajero MD 505 [place] [address] PCP - General Internal Medicine 05/28/18 Juan Cordova, PharmD [address] [place] [address] DAKOTA Garcia [address] Pharmacist Internal Medicine 07/14/22 Aidee Mejia 12/29/24 01/07/25 Yvonne Knox Cage TenderStudent Counsellor 02/15/23 Yvonne Knox Cage TenderStudent Counsellor 04/09/24 documented as of this encounter
--- OUTSIDE RECORDS SUMMARY | 2025-01-28 08:58 | XMS_ITS | Encounter Summary ---
Author Organization [employer] Address [address] [facility] 7t [place] [address] Care Team Providers Care Attic Fans Mechanic Name Role Phone Juan Miguel Tinajero MD Primary Care Provider [phone] Juan Cordova PharmD Unavailable Unavail able Aidee Mejia Unavailable Reason for Visit * Reason Comments Med Refill Encounter Details Date Type Department Care Team ([facility] Contact Info) Description 08/19/2022 Refill [facility] MED & PEDS [address] [place], [place] [phone] Juan Miguel Tinajero MD 505 [place] [address] Seasonal allergic rhinitis due to other allergic [...] Upcoming Encounters Date Type Department Care Team ([facility] Contact Info) Description 02/02/2025 9:30 AM EDT Telemedicine [facility] MED & PEDS [address] [place] [address] Elsa Barnett, RN [address] [place] [address] 02/17/2025 9:15 AM EDT Office Visit [facility] MED & PEDS 505 [place] [address] Juan Miguel Tinajero MD 505 [place] [address] documented as of this encounter Goals Goal Patient Goal Type Associated Problems Recent Progress Patient-Stated? Author Hemoglobin A1c < 7 Result Component 7.7(01/14/2025 10:26 AM EDT) No Juan Cordova, PharmD documented as of this encounter Visit Diagnoses Diagnosis Seasonal allergic rhinitis due to other allergic trigger documented in this encounter Additional Health Concerns Assessment Noted Time PHQ-9 Depression Total Score: 4 07/04/19 10:02 AM EST documented as of this encounter Care Teams Attic Fans Mechanic Relationship Specialty Start Date End Date Juan Miguel Tinajero MD 505 [place] [address] PCP - General Internal Medicine 05/28/18 Juan Cordova, PharmD 505 [place] [address] Pharmacist Internal Medicine 07/14/22 Aidee Mejia 12/29/24 01/07/25 Yvonne Knox Traveling PhlebotomistCorn Shucker 02/15/23 Yvonne Knox Traveling PhlebotomistCorn Shucker 04/09/24 documented as of this encounter
== END 2025-01-28 09:19 | disposition home or self-care (01) ==
LOC: HO.HUSH 08:32
PROVIDERS: PCP Student in an Organized Health Care Education/Training Program; Visit Provider Urology
DX: N99.89 Other postprocedural complications and disorders of genitourinary system (principal); R33.8 Other retention of urine
CPT/HCPCS: 99024

== ENCOUNTER → 2025-01-28 08:31 | Outpatient (BNVA) | payer MEDICAID, SELFPAY | PROVIDERS: PCP Student in an Organized Health Care Education/Training Program; Visit Provider Urology | DX: R33.8 Other retention of urine (principal); N99.89 Other postprocedural complications and disorders of genitourinary system | CPT/HCPCS: 51700; 51798; 99212 ==

== ENCOUNTER 2025-02-09 10:37 | Outpatient (REF) | payer MEDICAID, SELFPAY ==
--- OUTSIDE RECORDS SUMMARY | 2025-02-09 13:43 | XMS_ITS | Clinical Summary ---
Author Organization [facility] Address [address] [place] [address] Care Team Providers Care Supervisor Yard Name Role Phone Unavailable Primary Care Provider [...] 2010 Zoster Vaccines (1 of 2) 2010 Depression Screening 05/28/2024 COVID-19 Vaccine (1 - 2023-2 5 season) 2025 Influenza Vaccine (#1) 2025 RSV Immunization Adult [...]
--- OUTSIDE RECORDS SUMMARY | 2025-02-09 13:44 | XMS_ITS | Clinical Summary ---
Author Organization [facility] Address [address] [place] [address] Phone Care Team Providers Care Fnps Name Role Phone Juan Miguel Tinajero MD Primary Care Provider [phone]- [phone] Allergies No known active allergies Medications Acetaminophen [...] with meals. 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 Gets regular [place] follow up and has Narcan prescribed. F/U [...] [facility] [address] [place] [address] Ranjan Price MD from Last 3 Months [...] Office Visit [facility] [address] [address] Aj Grajeda MD [address] [address] Health Maintenance Due Date Last Done Comments Colorectal Cancer Screening: Annual FOBT 2009 Colorectal Cancer Screening: Colonoscopy 2009 Colorectal Cancer Screening: Sigmoidoscopy 2009 Diabetes: Pedal Pulse Checked 03/28/2023 Diabetes: Sensory Foot Exam 03/28/2023 Diabetes: Visual Foot Exam 03/28/2023 Diabetes: Hemoglobin A1C 12/23/202409/23/2 025, 05/14/2024, 11/01/2023, Additional history exists Influenza [...] AM EDT) Hemoglobin A1C 6.6(H) (4.0-5.6) % [facility] Comment: MONITORING: In known diabetic patients, hemoglobin A1c targets should be discussed with health care provider. DIAGNOSTIC USE: The [place] Diabetes Association (ADA) and the World Health [...] Supplement 1 Testing performed or reported by [facility], a Service of [facility], [address] [place] [address] Zachary Sanders MD, Aircraft Rigging And Controls Mechanic [facility]# [id number] Blood specimen (specimen) Venous blood / Unknown 03/21/2023 8:20 AM EDT 03/21/2023 8:25 AM EDT us Aj Grajeda MD LAB BLOOD ORDERABLES Final Re sult [facility] from Last 3 Months or Most Recently Relevant to Health Maintenance Insurance [place] Care Teams Fnps Relationship Specialty Start Date End Date Juan Miguel Tinajero MD [address] [place] [address] [id number] PCP - General Internal Medicine 02/11/21
[2025-02-09 14:08] LABS: MANUAL DIFF FLAG NO
[2025-02-09 14:17] LABS: Hematocrit 31.7 % (42.0-52.0); Hemoglobin 10.6 g/dl (14.0-18.0); Imm Gran Abs Auto 0.02 X10*3/uL (0.00-0.03); Imm Gran Pct Auto 0.2 % (0.0-0.4); Lymphocytes Absolute Auto 2.2 X10*3/uL (1.2-4.9); Mean Corpuscular HGB Conc 33.4 g/dl (31.0-36.0); Mean Corpuscular Hemoglobin 27.5 pg (27.0-33.0); Mean Corpuscular Volume 82.1 fL (80.0-98.0); NRBC Abs Auto 0.000 X10*3/uL (0.0-0.012); NRBC Pct Auto 0.0 /100WBC (0.0-0.2); Platelet Count 219 X10*3/uL (160-400); Red Blood Count 3.86 X10*6/uL (4.60-5.80); White Blood Count 8.2 X10*3/uL (4.8-10.8)
== END 2025-02-09 10:38 | disposition home or self-care (01) ==
LOC: HO.CHCLDS 10:37
PROVIDERS: Visit Provider Internal Medicine
DX: D64.9 Anemia, unspecified (principal)
CPT/HCPCS: 36415; 85025

== ENCOUNTER 2025-03-31 07:54 | Outpatient (REF) | payer MEDICAID, SELFPAY ==
--- OUTSIDE RECORDS SUMMARY | 2020-06-21 03:23 | XMS_ITS | Continuity of Care Document ---
Author Organization [facility] Address [address] [place] [address] Phone Care Team Providers Care Community Health Coordinator Name Role Phone Avelino MSN, ROLL FORMING SUPERVISOR-CLINICAL QUALITY ANALYST, Kiki Unavailable Jaelyn vailable Allergies, Adverse Reactions, Alerts Substance Reaction Status Criticality No Known Allergies Active No Inform ation Medications Medication Instructions Dosage Effective Dates (start - stop) Status Comments amlodipine 2.5 mg tablet take 1 tablet by oral route every day 2.5 MG - Active omeprazole 20 mg capsule,delayed release take 1 capsule by oral route every day 30 minutes to 1 hour before a meal 20 MG - Active fluoxetine 20 mg tablet take 1 tablet by oral route every day in the morning 20 MG - Active clopidogrel 75 mg tablet take 1 tablet by oral route every day 75 MG - Active Admelog U-100 Insulin lispro 100 unit/mL subcutaneous solution inject 10 units tid with meals plus sliding scale. - Active <139= no insulin 140-199= 2 units, 200-249=4 units, 250-299=6 units, 300-348=8unit s, 350-400=10uni ts Basaglar KwikPen U-100 Insulin 100 unit/mL (3 mL) subcutaneous inject 43 units sq bid; max dose 50 units per day - Active carvedilol 3.125 mg tablet take 1 tablet by oral route 2 times every day with food 3.125 MG - Active diclofenac sodium 75 mg tablet,delayed release take 1 tablet by oral route 2 times every day 75 MG - Active FreeStyle Lancets 28 gauge Use by Subcutaneous route 4 times every day Not Available - Active FreeStyle Lite Strips apply 1 by Topical route 4 times every day 1 - Active gabapentin 300 mg capsule take 1 capsule by oral route 3 times every day 300 MG - Active pen needle, diabetic 31 gauge x 1/4 inject by Subcutaneous route as directed- use 5 times a day with insulin injections - Active isosorbide mononitrate ER 60 mg tablet,extended release 24 hr take 1 tablet by oral route every day in the morning 60 MG - Active lisinopril 20 mg tablet take 1 tablet by oral route every day 20 MG - Active Topicaine 4 % topical gel apply to affected areas prn pain - Active Preparation H (Witch Fallon) 20 % topical pads apply to affected area tid - Active magnesium 200 mg tablet take 1 tablet po daily - Active atorvastatin 80 mg tablet take 1 tablet by oral route every day 80 MG - Active aspirin 81 mg chewable tablet chew 1 tablet by oral route every day 81 MG - Active FreeStyle Lite Meter kit take 1 not specified by [facility].(non-drug; combo) route 4 times every day 1 not specified - Active nitroglycerin 0.[address] 1 tablet by sublingual route at 1st sign of attack; may repeat every 5 minutes up to 3 tabs; if norelief seek medical help as needed 0.4 MG - Active Advance Directives Directive Yes / No Effective Date File Name No Information Encounters Encounter Description Practice Location Reason(s) For Visit Diagnoses Date Provider [facility], [address] [place] [address], [place], [place], [id number] , [place] tel:[phone] [facility] No Information 1 Avelino Swanson. [address] [place] [address], [id number] [place], [place], [id number], [place]. tel:[phone] [facility], [address] [place] [address], [place], [place], [id number] , [place] tel:[phone] [facility] No Information 9 Shawn Gandhi. [address] [id number] [place], [place], [address], [place]. tel:[phone] [facility], [address] [place] [address], [id number] , [place] tel: [phone] [facility] Follow Up of flank pain (chief complaint) Body mass index (BMI) 38.0-38.9, adultType 2 diabetes mellitus without complication, with long-term current use of insulinAbdominal bloatingRight kidney mass Sep- You Kiki. [address] [facility], [id number] [place], [place], [place], [id number], [place]. tel:[phone] [facility], [address] [place] [address], [id number] , [place] tel: [phone] [facility] diabetes (chief complaint). (chief complaint) Right kidney massType 2 diabetes mellitus with hyperglycemiaBody mass index (BMI) 37.0-37.9, adult Sep- 9 You Kiki. [address] [facility], [id number] [place], [place], [place], [id number], [place]. tel:[phone] [facility], [address] [place] [address], [id number] , [place] tel: [phone] [facility] No Information You Kiki. [address] [facility], [id number] [place], [place], [place], [id number], [place]. [phone], [id number] , [place] tel: [phone] [facility] Follow Up of diabetes (chief complaint)Gas (chief complaint) Body mass index (BMI) 38.0-38.9, adultType 2 diabetes mellitus without complication, with long-term current use of insulinDiarrhea, unspecified typeDDD (degenerative disc disease), cervicalEssential hypertensionHyperlipid emia, unspecified hyperlipidemia typeHistory of [place] (myocardial infarction) You Kiki. [address] [facility], [id number] [place], [place], [place], [id number], [place]. tel:[phone] [facility], [address] [place] [address], [id number] , tel:[phone] [facility] flank pain (chief complaint)Skin tag(s) (chief complaint)Vas surgery follow up (ranjana) (chief complaint). (chief complaint) Body mass index (BMI) 36.0-36.9, adultType 2 diabetes mellitus without complication, with long-term current use of insulinClosed fracture of multiple ribs of right side with routine healing, subsequent encounterSkin tagArthrosis of left shoulderDDD (degenerative disc disease), cervicalOther diabetic neurological complication associated with type 2 diabetes mellitusInfected surgical wound You Kiki. [address] [facility], [id number] [place], [place], [place], [id number], [place]. tel:[phone] [facility], [address] [place] [address], [id number] , [place] tel:[phone] [facility] No Information You Kiki. [address] [facility], [id number] [place], [place], [place], [id number], [place]. tel:[phone], [id number] , [place] tel:[phone] [facility] diabetes (chief complaint)hype rtension (chief complaint)foll ow up [facility] (chief complaint)Flan k pain (chief complaint) Body mass index (BMI) 37.0-37.9, adultClosed fracture of multiple ribs of right side with routine healing, subsequent encounterEssential hypertensionHyperlipid emia, unspecified hyperlipidemia typeType 2 diabetes mellitus with hyperglycemiaHistory of [place] (myocardial infarction)Other diabetic neurological complication associated with type 2 diabetes mellitus 9 You Kiki. [address] [facility], [id number] [place], [place], [place], [id number], [place]. tel:[phone], [id number] , [place] tel:[phone] [facility] Follow Up of Shoulder pain (chief complaint) Body mass index (BMI) 37.0-37.9, adultLeft anterior shoulder pain Jul-2 2 9 You Kiki. [address] [facility], [id number] [place], [place], [place], [id number], [place]. tel:[phone], [id number] , [place] tel:[phone] [facility] shoulder pain (chief complaint) Body mass index (BMI) 37.0-37.9, adultLeft anterior shoulder pain Jul-0 8-201 9 You Kiki. [address] [facility], [id number] [place], [place], [place], [id number], [place]. tel:[phone], [id number] , [place] tel:[phone] [facility] immunizations (chief complaint)Ches t pain (chief complaint)diab etes (chief complaint) Body mass index (BMI) 38.0-38.9, adultType 2 diabetes mellitus with hyperglycemiaEssential hypertension 9 No Information [address], [id number] , [place] tel:[phone] [facility] shoulder pain (chief complaint)diab etes (chief complaint) Body mass index (BMI) 38.0-38.9, adultType 2 diabetes mellitus with hyperglycemiaBilateral claudication of lower limbDeltoid tendonitis of left shoulder No Information [address], [id number] , [place] tel:[phone] [facility] elbow pain (chief complaint)foll ow up on lab test(s) (chief complaint)diab etes (chief complaint) Body mass index (BMI) 38.0-38.9, adultArthritis of elbow, leftType 2 diabetes mellitus with hyperglycemia 8 No Information [facility], [address] [place] [address], [id number] , tel:[phone] [facility] No Information 8 No Information [facility], [address] [place] [address], [id number] , tel:[phone] [facility] establish pcp (chief complaint)diab etes (chief complaint)hype rtension (chief complaint) Body mass index (BMI) 37.0-37.9, adultAcute stress reactionEssential hypertensionType 2 diabetes mellitus without complication, with long-term current use of insulinFlu vaccine needHyperlipidemia, unspecified hyperlipidemia typeHistory of [place] (myocardial infarction)Other diabetic neurological complication associated with type 2 diabetes mellitusLeft arm pain 8 No Information Family History Family Member Type Diagnosis Age At Onset No Information Immunizations Vaccine Date Status Comments Tdap administered Source: New Imm unization Record Influenza, injectable, quadrivalent, preservative free, 3 yrs or older administered Source: New Immuniz ation Record Payers Payer name Insurance type Covered republican ID Authoriza tion(s) [facility] [id number] [facility] [id number] [facility] [id number] [facility] [id number] [facility] [id number] [facility] [id number] Social History Type Description Quantity Date Captured Comments Alcohol Use Details Unknown Caffeine Use Details Unknown Tobacco Use Status No Information Smoking Status No Information Sex Male Gender Identity Male Chief Complaint And Reason For Visit No Information Plan Of Treatment Date Type Action Status Goal Dietary manageme nt education, guidance, and counseling completed Goal Dietary manageme nt education, guidance, and counseling completed Goal Dietary manageme nt education, guidance, and counseling completed Goal Dietary manageme nt education, guidance, and counseling completed Goal Dietary manageme nt education, guidance, and counseling completed Goal Dietary manageme nt education, guidance, and counseling completed Goal Dietary manageme nt education, guidance, and counseling completed Goal Dietary manageme nt education, guidance, and counseling completed Goal Dietary manageme nt education, guidance, and counseling completed Goal Dietary manageme nt education, guidance, and counseling completed Referral Ordered: CT Abdomen W/o And W/ Contrast abd/pelvis Appointment date/timeframe: Today ordered Referral Ordered: Referrals: Urology ordered Referral Ordered: Xray Abdomen Complete 2 View ordered Referral Ordered: Referrals: Dermatology Appointment date/timeframe: 02/03/2019 ordered Referral Ordered: Referrals: Pain Medicine ordered Referral Ordered: CT Upper Extremity W/o Contrast Left shoulder ordered Referral Ordered: Referrals: Orthopedic Surgery ordered Referral Ordered: Xray Shoulder Complete 2 View Left ordered Referral Ordered: Referrals: Vascular Surgery. Evaluate and treat Appointment date/timeframe: 08/14/2018 ordered Referral Ordered: US Vascular Bilateral Lower Extremity Appointment date/timeframe: 06/10/2018 ordered Referral Referred To: Aquatic Therapy Ordered: Referrals: Aquatic Therapy. Evaluate and treat ordered Referral Ordered: Xray Elbow Complete 3 View Left ordered Referral Ordered: Referrals: Cardiology Appointment date/timeframe: 04/11/2018 ordered Referral Ordered: EMG Needle 1 Extremity Left arm Appointment date/timeframe: 04/16/2018 ordered Future Order: Lab Order COMPREHE NSIVE METABOLIC PANEL W/EGFR ([id number]), Ordered on: Ordered History Of Present Illness Encounter Date Complaint History Of Prese nt Illness Follow Up of flank pain Location of pain is right flank. There is no history of kidney stones. No aggravating factors. There is no radiation. There are no relieving factors. Associated symptoms include back pain, bloating and diarrhea. Pertinent negatives include chills, hematuria, pelvic pain and suprapubic pain. Additional information: patient had CT of abdomen pelvis done on 01/30, results printed to review. Results reviewed with patient. . Patient is here to review the CT scan of lumbar that was done by pain management. Showed right mass. diabetes Risk factors inc lude: / Haitian, family history diabetes mellitus, obesity, over age 4545 years old and sedentary lifestyle. Comorbidity: Hypertension. Additional information: left blood sugar log at home but he states when he checked his sugar this morning it was 150. Follow Up of diabetes Risk facto rs include: / Haitian, family history diabetes mellitus, obesity, over age 4545 years old and sedentary lifestyle. Comorbidity: Hypertension. Associated symptoms include: diarrhea. Pertinent negatives include blurred vision, burning of extremities, frequent infections, frequent urination, heartburn, increased fatigue and slow healing wounds / sores. Additional information: 2 month f/u. Gas Location is diff use. The patient describes it as bloating. Context: no pattern noted. Denies aggravating factors. Denies relieving factors. Associated symptoms include bloating, diarrhea and flatulence. Pertinent negatives include constipation, flank pain, heartburn, nausea and vomiting. Additional information: Has not recently traveled out of country. Does not have reptilian pets. Does not have well water. . The express manager phone was used through this entire visit. Patient speaks only Afghan. Vas surgery follow up (ranjana) The symptoms are reported as being . Patient states he had a catheterization procedure done by Vascular surgeon. States that they went through his left groin and placed a catheter to his left lower leg to help with the flow of blood. States that it was infected. He has been on antibiotics but does not know the name. Finished the antibiotic yesterday. He does have a f/u appt on November 06 with the vascular surgeon. flank pain Location of pain is right flank. There is no history of kidney stones. Symptom is aggravated by bending/stooping and movement. There is no radiation. Relieving factors include analgesics and rest. Associated symptoms include back pain. Pertinent negatives include bloating, chills, diarrhea, dribbling, dysuria, fever, flank pain, hematuria, nausea, pelvic pain, suprapubic pain, urinary blood clots, urinary frequency, urinary straining and vomiting. Additional information: patient states still having pain, out of medication. Was at [facility] in August for fractured ribs on the right flank side. Skin tag(s) patient has skin tag in right axilla area, states it does cause discomfort and it was bleeding yesterday[facility] at [facility] for rib pain. diabetes Risk factors inc lude: / Haitian, family history diabetes mellitus, obesity, over age [age] years old and sedentary lifestyle. Comorbidity: Hypertension. Pertinent negatives include blurred vision, burning of extremities, chest pain, constant hunger, dental disease, diarrhea, dyspnea, frequent infections, frequent urination, heartburn, increased fatigue, nocturia, polydipsia, slow healing wounds / sores and weight gain. Additional information: medcation refills. hypertension Comorbid conditi ons include diabetes mellitus and post-[place]. Risk factors include family history HTN, gout or CAD, inactive lifestyle, male gender and obesity. The hypertension is exacerbated by nothing. Pertinent negatives include chest pain, claudication, confusion, diaphoresis, dyspnea, epistaxis, fatigue, headache, hematuria, irregular heartbeat/palpitations, nausea, tinnitus, transient weakness, tremor, visual disturbances and vomiting. Additional information: medication refills Flank pain Pain level is 10 . Location of pain is right flank. There is no history of kidney stones. Symptom is aggravated by bending/stooping and movement. There is radiation to the abdomen. A recent ER visit was made on 09/19/2018. Relieving factors include analgesics, medication therapy (percocet) and rest. Associated symptoms include back pain and flank pain. Pertinent negatives include bloating, chills, diarrhea, dribbling, dysuria, fever, hematuria, nausea, pelvic pain, suprapubic pain, urinary blood clots, urinary frequency, urinary straining and vomiting. Additional information: pt states unable to sleep d/t pain, at [facility] in August for fx of right rib. Follow Up of Shoulder pain Locat ion: left shoulder (rotator cuff). The pain radiates to the left arm. The pain is aching and sharp. Context: there is no injury. The pain is aggravated by movement. The pain is relieved by rest. Associated symptoms include decreased mobility, difficulty initiating sleep, joint instability, joint tenderness, locking, popping, spasms, swelling and weakness. Additional information: Pt is here to x ray results on his shoulder - xrays reviewed. shoulder pain Onset: 1 year ag o. Severity level is 10. Location: left shoulder. The pain is aching, piercing, sharp and throbbing. The pain is aggravated by lifting, movement and pushing. There are no relieving factors. Associated symptoms include decreased mobility, difficulty initiating sleep, joint instability, joint tenderness, swelling and weakness. Additional information: was recievng injections for this shoulder but dr cooper stopped the injections and advised to try water therapy but he states its not working. diabetes Risk factors inc lude: / Haitian, family history diabetes mellitus and sedentary lifestyle. immunizations Patient wants te tanus vaccine. Chest pain The patient pres ents with a complaint of Chest pain. The symptoms have resolved. Relevant history for this patient excludes tobacco use. Patient was seen at [facility] last for chest pain. Patient states he took nitro x 3 before going to the hospital. Stress test and CTA of chest were unremarkable. diabetes Risk factors inc lude: / Haitian, family history diabetes mellitus and sedentary lifestyle. shoulder pain Location: should er. The pain radiates to the left arm. The pain is burning, piercing and sharp. The pain is aggravated by movement. Associated symptoms include decreased mobility, difficulty initiating sleep and joint tenderness. Pertinent negatives include bruising, crepitus, joint instability, locking, numbness, popping, spasms, swelling, tingling in the arms and weakness. Additional information: Patient states he got injection for elbow pain at last visit and has had relief but continues to have more than 10/10 pain in the shoulder. follow up on lab test(s) diabetes Risk factors inc lude: / Haitian, family history diabetes mellitus and sedentary lifestyle. Pertinent negatives include blurred vision, burning of extremities, chest pain, constant hunger, dental disease, diarrhea, dysesthesias, dyspnea, foot ulcers, frequent infections, frequent urination, heartburn, hypoglycemic episodes, increased fatigue, nocturia, polydipsia and slow healing wounds / sores. elbow pain Onset: 6 months ago. Location: left elbow. The pain radiates to the left arm. The pain is sharp and throbbing. Context: there is no injury. Associated symptoms include difficulty initiating sleep, joint tenderness, numbness and tingling in the arms. Pertinent negatives include joint instability and weakness. establish pcp Patient presents today to establish PCP. PMH: diabetes, hypertension, hyperlipidemia, gerd, neuropathy, [place] 2013- cardiac bypass surgey, 5 stents placed, Hx stroke 2015 last saw his heart doctor 4 months ago, was going ever 6 months in [place], recently moved here - needs cardiology referral colonoscopy done 6 years ago out of state- normal per patientdoes not smokec/o numbness, tingling left arm- denies CP or neck painstates the pain is mostyle in his upper arm and has gotten worse over the last few weeks, ibuprofen does not help. States it feels like pins and needles hypertension Comorbid conditi ons include diabetes mellitus and post-[place]. Risk factors include family history HTN, gout or CAD and male gender. Pertinent negatives include chest pain, dyspnea, fatigue, headache, hematuria, irregular heartbeat/palpitations, nausea and vomiting. Additional information: establishing care- needs to also establish with cardiology for annual check ups diabetes Risk factors inc lude: / Haitian, family history diabetes mellitus and sedentary lifestyle. Pertinent negatives include chest pain, diarrhea and dyspnea. Additional information: establishing care today- needs all refills and glucometer. Instructions Date Instruction Additional Infor mation Giving encouragement to exercise Related to Body mass index (BMI) 38.0-38.9, adult Dietary management e ducation, guidance, and counseling Related to Body mass index (BMI) 38.0-38.9, adult Giving encouragement to exercise Related to Body mass index (BMI) 37.0-37.9, adult Dietary management e ducation, guidance, and counseling Related to Body mass index (BMI) 37.0-37.9, adult Giving encouragement to exercise Related to Body mass index (BMI) 38.0-38.9, adult Dietary management e ducation, guidance, and counseling Related to Body mass index (BMI) 38.0-38.9, adult Giving encouragement to exercise Related to Body mass index (BMI) 36.0-36.9, adult Dietary management e ducation, guidance, and counseling Related to Body mass index (BMI) 36.0-36.9, adult Giving encouragement to exercise Related to Body mass index (BMI) 37.0-37.9, adult Dietary management e ducation, guidance, and counseling Related to Body mass index (BMI) 37.0-37.9, adult Dietary management e ducation, guidance, and counseling Related to Body mass index (BMI) 37.0-37.9, adult Giving encouragement to exercise Related to Body mass index (BMI) 37.0-37.9, adult Exercise promotion: stretching R elated to Body mass index (BMI) 37.0-37.9, adult Dietary needs education Related to Body mass index (BMI) 37.0-37.9, adult Dietary management e ducation, guidance, and counseling Related to Body mass index (BMI) 38.0-38.9, adult Giving encouragement to exercise Related to Body mass index (BMI) 38.0-38.9, adult Giving encouragement to exercise Related to Body mass index (BMI) 38.0-38.9, adult Dietary management e ducation, guidance, and counseling Related to Body mass index (BMI) 38.0-38.9, adult Giving encouragement to exercise Related to Body mass index (BMI) 38.0-38.9, adult Dietary management e ducation, guidance, and counseling Related to Body mass index (BMI) 38.0-38.9, adult Giving encouragement to exercise Related to Body mass index (BMI) 37.0-37.9, adult Dietary management e ducation, guidance, and counseling Related to Body mass index (BMI) 37.0-37.9, adult Assessments Type Assessment Date No Information
--- NOTE | ~2025-03-31 | US_ITS ---
EXAMINATION: Noninvasive assessment of the bilateral lower extremities with ARTERIAL DUPLEX, ANKLE BRACHIAL INDICES (ABIs), and PULSE VOLUME RECORDINGS (PVRs). CLINICAL INFORMATION: I 73.9. Status post stenting left superficial femoral artery. TECHNIQUE: Duplex Doppler techniques with waveform analysis and measurement of velocities in the bilateral common femoral, profunda femoris, superficial femoral, popliteal and tibial arteries were performed. Additionally, ankle pulse volume recordings, ankle pressure measurements and ankle brachial indices were obtained of the lower extremity arterial system bilaterally. The study was performed only at rest. COMPARISON: March 11, 2024. FINDINGS: DIRECT DUPLEX DOPPLER FINDINGS: RIGHT LEG: Common femoral artery: 146 cm/s, phasicity: Biphasic. Spectral broadening. Profunda femoris artery: 140 cm/s, phasicity: Biphasic. Superficial femoral artery (proximal): 81 cm/s, phasicity: Biphasic. Spectral broadening. Superficial femoral artery (mid): 24 cm/s, phasicity: Biphasic. Spectral broadening. Superficial femoral artery (distal): 44 cm/s, phasicity: Biphasic. Spectral broadening. Popliteal artery: 40 cm/s, phasicity: Biphasic. Spectral broadening. Posterior tibial artery: 32 cm/s, phasicity: Biphasic. Spectral broadening. Peroneal artery: 32 cm/s, phasicity: Biphasic. Spectral broadening. Anterior tibial artery: 34 cm/s, phasicity: Biphasic. Spectral broadening. Dorsalis pedis artery: 27 cm/s, phasicity:Monophasic. Spectral broadening. LEFT LEG: Common femoral artery: 188 cm/s, phasicity: Biphasic. Spectral broadening. Profunda femoris artery: 172 cm/s, phasicity: Monophasic. Spectral broadening. Superficial femoral artery (proximal): Stent. Superficial femoral artery (mid): Stent Superficial femoral artery (distal):Stent Popliteal artery: 90 cm/s, phasicity: Biphasic. Posterior tibial artery: 56 cm/s, phasicity: Biphasic. Spectral broadening. Peroneal artery: 38 cm/s, phasicity: Biphasic. Spectral broadening. Anterior tibial artery: 67 cm/s, phasicity: Biphasic. Spectral broadening. Dorsalis pedis artery: 48 cm/s, phasicity: Biphasic. Spectral broadening. Reversal. Left superficial femoral artery stent peak systolic velocities: Eagle artery proximal to the stent: 266 cm/s, biphasic waveforms and spectral broadening. Proximal stent: 1 19 cm/s, biphasic waveforms. Mid stent: 79 cm/s, biphasic waveform. Distal stent: 117 cm/s and, biphasic waveform. Eagle artery distal to the stent: 77 cm/s, biphasic waveform. BRACHIAL PRESSURES: Right: Nondiagnostic, pressure greater than 200. Left: Nondiagnostic, pressure greater than 200. ANKLE PRESSURES: Right: PT 200, DP 200 Left: PT 203, DP 202 ANKLE-BRACHIAL INDEX: Right: 1.0 Left: 1.01. ANKLE PVR WAVEFORMS: Right: Abnormal Left: Abnormal US/US arterial duplex BI w/ RE IMPRESSION: Right leg: Moderate inflow disease throughout the interrogated arteries. Left leg: Moderate to severe inflow disease throughout the interrogated arteries. Patency of the superficial femoral artery with high velocities proximal greenville artery segment. RE Reference: - >1.4 = calcified vessels - 0.9 - 1.4 = normal - no significant arterial disease - 0.7 - 0.89 = mild peripheral arterial disease - 0.51 - 0.69 = moderate peripheral arterial disease - 0.50 = severe peripheral arterial disease - < .30 = critical arterial disease Electronically signed by: Jeremy Nicolas MD 03/31/2025 09:45 AM JOHN
--- OUTSIDE RECORDS SUMMARY | 2025-03-31 07:56 | XMS_ITS | Encounter Summary ---
Author Organization [employer] Address [address] [facility] 7 [place] [address] Care Team Providers Care Systems Software Specialist Name Role Phone Juan Miguel Tinajero MD Primary Care Provider [phone] Juan Cordova PharmD Unavailable Unavail able Aidee Mejia Unavailable Encounter Details Date Type Department Care Team ([facility] Contact Info) Description 11/09/2023 Orders Only [facility] CHC MED & PEDS [address] [place], [place] [phone] Juan Miguel Tinajero MD [address] [place] [address] Social History Tobacco Use Types Packs/Day Years [...] Care Team (Late st Contact Info) Description 03/31/2025 1:30 PM EST Office Visit [facility] MED & PEDS [address] [place] [address] Juan Miguel Tinajero MD 505 [place] [address] 06/04/2025 10:30 AM EST Clinical Support [facility] MED & PEDS [address] [place] [address] Elsa Barnett RN 505 [place] [address] documented as of this encounter Goals Goal Patient Goal Type Associated Problems Recent Progress Patient-Stated? Author Blood Pressure < 140/90 Blood Pressure 156/84(2024 9:10 AM EDT) No Juan Cordova, PharmD Hemoglobin A1c < 7 Result Component 7.7( 10:26 AM EDT) No Juan Cordova, PharmD documented as of this encounter Visit Diagnoses Not on filedocumented in this encounter Additional Health Concerns Assessment Noted Time PHQ-9 Depression Total Score: 0 10/30/19 10:10 AM EDT documented as of this encounter Care Teams Systems Software Specialist Relationship Specialty Start Date End Date Juan Miguel Tinajero MD [address] [place] [address] PCP - General Internal Medicine 05/28/18 Juan Cordova, EbonieD 505 [facility] [address] Pharmacist Internal Medicine 07/14/22 Aidee Mejia 12/29/24 01/07/25 Yvonne Knox Brick And Blocker Aid LaborSenior Production Manager 02/15/23 Yvonne Knox Brick And Blocker Aid LaborSenior Production Manager 04/09/24 documented as of this encounter
--- OUTSIDE RECORDS SUMMARY | 2025-03-31 07:56 | XMS_ITS | Encounter Summary ---
Author Organization [employer] Address [address] [facility] 7t [place] [address] Care Team Providers Care Sales Account Coordinator Name Role Phone Juan Miguel Tinajero MD Primary Care Provider [phone] Juan Cordova PharmD Unavailable Unavail able Aidee Mejia Unavailable Encounter Details Date Type Department Care Team (Late st Contact Info) Description 12/03/2023 Orders Only [facility] CHC MED & PEDS [address] [place], [place] [phone] Juan Miguel Tinajero MD 505 [place] [address] Type 2 diabetes mellitus with both eyes affected by mild nonproliferative retinopathy without macular edema, with long-term current use of insulin ([facility]) (Primary Dx) Social History Tobacco Use Types [...] Description 03/31/2025 1:30 PM EST Office Visit [facility] MED & PEDS [address] [place] [address] Juan Miguel Tinajero MD [address] [place] [address] 06/04/2025 10:30 AM EST Clinical Support [facility] MED & PEDS [address] [place] [address] Elsa Barnett RN 505 [place] [address] documented as of this encounter Goals Goal Patient Goal Type Associated Problems Recent Progress Patient-Stated? Author Blood Pressure < 140/90 Blood Pressure 156/84(2024 9:10 AM EDT) No Juan Cordova, PharmD Hemoglobin A1c < 7 Result Component 7.7( 10:26 AM EDT) No Juna Cordova, PharmD documented as of this encounter Visit Diagnoses Diagnosis Type 2 diabetes mellitus with both eyes affected by mild nonproliferative retinopathy without macular edema, with long-term current use of insulin (HCC)- Primary documented in this encounter Additional Health Concerns Assessment Noted Time PHQ-9 Depression Total Score: 0 10/30/19 24 10:10 AM EDT documented as of this encounter Care Teams Sales Account Coordinator Relationship Specialty Start Date End Date Juan Miguel Tinajero MD 505 [place] [address] PCP - General Internal Medicine 05/28/18 Juan Cordova PharmD [address] [place] [address] Pharmacist Internal Medicine 07/14/22 Aidee Mejia 12/29/24 01/07/25 Yvonne Knox Applied Exercise PhysiologistMatching Machine Operator 02/15/23 Yvonne Knox Applied Exercise PhysiologistMatching Machine Operator 04/09/24 documented as of this encounter
--- OUTSIDE RECORDS SUMMARY | 2025-03-31 07:56 | XMS_ITS | Encounter Summary ---
Author Organization [employer] Address [address] [facility] 7t [place] [address] Care Team Providers Care Resident Buyer Name Role Phone Juan Miguel Tinajero MD Primary Care Provider [phone] Juan Cordova PharmD Unavailable Unavail able Aidee Mejia Unavailable Reason for Visit * Reason Comments Med Refill Encounter Details Date Type Department Care Team ([facility] Contact Info) Description 03/28/2024 Refill [facility] CH[facility] MED & PEDS [address] [place], [place] [phone] Juan Miguel Tinajero MD 505 [place] [address] Sore throat; Bacterial conjunctivitis; Chronic pain syndrome [...] Description 03/31/2025 1:30 PM EST Office Visit [facility] MED & PEDS [address] [place] [address] Juan Miguel Tinajero MD [address] [place] [address] 06/04/2025 10:30 AM EST Clinical Support [facility] MED & PEDS [address] [place] [address] Elsa Barnett RN 505 [place] [address] documented as of this encounter Goals Goal Patient Goal Type Associated Problems Recent Progress Patient-Stated? Author Blood Pressure < 140/90 Blood Pressure 156/84(2024 9:10 AM EDT) No Dellogono, Juan, PharmD Hemoglobin A1c < 7 Result Component 7.7( 10:26 AM EDT) No DellogonoKalebis, PharmD documented as of this encounter Visit Diagnoses Diagnosis Sore throat Acute pharyngitis Bacterial conjunctivitis Other mucopurulent conjunctivitis Chronic pain syndrome documented in this encounter Additional Health Concerns Assessment Noted Time PHQ-9 Depression Total Score: 0 10/30/19 24 10:10 AM EDT documented as of this encounter Care Teams Resident Buyer Relationship Specialty Start Date End Date Juan Miguel Tinajero MD 505 [facility] [place] Garcia [address] PCP - General Internal Medicine 05/28/18 Juan Cordova, EbonieD [address] [place] [address] Pharmacist Internal Medicine 07/14/22 Aidee Mejia 12/29/24 01/07/25 Yvonne Knox Motor Pool ClerkPouncer Machine 02/15/23 Yvonne Knox Motor Pool ClerkPouncer Machine 04/09/24 documented as of this encounter
--- OUTSIDE RECORDS SUMMARY | 2025-03-31 07:56 | XMS_ITS | Encounter Summary ---
Author Organization [employer] Address [address] [facility] 7t [place] [address] Care Team Providers Care Security Delivery Specialist Name Role Phone Juan Miguel Tinajero MD Primary Care Provider [phone] Juan Cordova PharmD Unavailable Unavail able Aidee Mejia Unavailable Reason for Visit * Reason Onset Date Comments Pre-op Visit 01/07/2024 Encounter Details Date Type Department Care Team (Late st Contact Info) Description 01/07/2024 Telephone [facility] MEDICINE [address] [place] [address] Juan Miguel Tinajero MD 505 [place] [address] Pre-op Visit Social History Tobacco Use Types [...] PM EDT Outgoing call to [place] at [facility] calling to inform pt agreed to come [...] Yes Surgeon's name: lawanda kingsley Facility name: [facility] Surgeon's office number: [phone] Surgeon's office fax number: [phone] Contact name: [place] Last office note from surgeon requested: Yes documented in this encounter Plan of Treatment Upcoming Encounters Date Type Department Care Team ([facility] st Contact Info) Description 03/31/2025 1:30 PM EST Office Visit [facility] MED & PEDS [address] [place] [address] Juan Miguel Tinajero MD [address] [place] [address] 06/04/2025 10:30 AM EST Clinical Support [facility] MED & PEDS [address] [place] [address] Elsa Barnett, RN [address] [place] [address] documented as of this encounter Goals Goal [...] documented as of this encounter Care Teams Security Delivery Specialist Relationship Specialty Start Date End Date Juan Miguel Tinajero MD [address] [place] [address] PCP - General Internal Medicine 05/28/18 Juan Cordova, PharmD [address] [place] [address] Pharmacist Internal Medicine 07/14/22 Aidee Mejia 12/29/24 01/07/25 Yvonne Knox Vamp Strap IronerSort Worker 02/15/23 Yvonne Knox Vamp Strap IronerSort Worker 04/09/24 documented as of this encounter
--- OUTSIDE RECORDS SUMMARY | 2025-03-31 07:56 | XMS_ITS | Encounter Summary ---
Author Organization [employer] Address [address] [facility] 7 [place] [address] Care Team Providers Care Project Inspector Name Role Phone Juan Miguel Tinajero MD Primary Care Provider [phone] Juan Cordova PharmD Unavailable Unavail able Aidee Mejia Unavailable Reason for Visit * Reason Comments Med Refill Encounter Details Date Type Department Care Team ([facility] st Contact Info) Description 10/31/2023 Refill [facility] CHC MED & PEDS 505 [place], [place] [phone] Juan Miguel Tinajero MD 505 [place] [address] Chronic right shoulder pain; Pain in right [...] Description 03/31/2025 1:30 PM EST Office Visit [facility] MED & PEDS 505 [place] [address] Juan Miguel Tinajero MD 505 [place] [address] 06/04/2025 10:30 AM EST Clinical Support [facility] MED & PEDS 505 [place] [address] Elsa Barnett RN 505 [place] [address] documented as of this encounter Goals Goal [...] as of this encounter Care Teams Project Inspector Relationship Specialty Start Date End Date Juan Miguel Tinajero MD 505 [place] [address] PCP - General Internal Medicine 05/28/18 Juan Cordova, EbonieD 505 [place] [address] Pharmacist Internal Medicine 07/14/22 Aidee Mejia 12/29/24 01/07/25 Yvonne Knox Ramp SupervisorRelations Specialist 02/15/23 Yvonne Knox Ramp SupervisorRelations Specialist 04/09/24 documented as of this encounter
--- OUTSIDE RECORDS SUMMARY | 2025-03-31 07:56 | XMS_ITS | Encounter Summary ---
Author Organization [employer] Address [address] [facility] 7t [place] [address] Care Team Providers Care Racking Machine Operator Name Role Phone Juan Miguel Tinajero MD Primary Care Provider [phone] Juan Cordova PharmD Unavailable Unavail able Aidee Mejia Unavailable Reason for Visit * Reason Comments Med Refill Encounter Details Date Type Department Care Team ([facility] Contact Info) Description 12/27/2024 Refill [facility] CHC MED & PEDS 505 [place], [place] [phone] Juan Miguel Tinajero MD 505 [place] [address] Complains of low back pain Social History [...] Description 03/31/2025 1:30 PM EST Office Visit [facility] MED & PEDS [address] [place] [address] Juan Miguel Tinajero MD 505 [place] [address] 06/04/2025 10:30 AM EST Clinical Support [facility] MED & PEDS [address] [place] [address] Elsa Barnett RN [address] [place] [address] documented as of this encounter Goals Goal [...] documented as of this encounter Care Teams Racking Machine Operator Relationship Specialty Start Date End Date Juan Miguel Tinajero MD 505 [place] [address] PCP - General Internal Medicine 05/28/18 Juan Cordova PharmD 505 [facility] [address] Pharmacist Internal Medicine 07/14/22 Aidee Mejia 12/29/24 01/07/25 Yvonne Knox Chemical Engineering TechnicianDigital Traffic Coordinator 02/15/23 Yvonne Knox Chemical Engineering TechnicianDigital Traffic Coordinator 04/09/24 documented as of this encounter
--- OUTSIDE RECORDS SUMMARY | 2025-03-31 07:56 | XMS_ITS | Encounter Summary ---
Author Organization [employer] Address [address] [facility] 7t [place] [address] Care Team Providers Care Grain Oilseed Or Pasture Farm Worker Name Role Phone Juan Miguel Tinajero MD Primary Care Provider [phone] Juan Cordova PharmD Unavailable Unavail able Aidee Mejia Unavailable Reason for Visit * Reason Comments Med Refill Encounter Details Date Type Department Care Team ([facility] Contact Info) Description 10/31/2023 Refill [facility] CHC MED & PEDS [address] [place], [place] [phone] Juan Miguel Tinajero MD [address] [place] [address] Sore throat; Bacterial conjunctivitis; Chronic pain syndrome [...] 1:30 PM EST Office Visit [facility] MED & PEDS [address] [place] [address] Juan Miguel Tinajero MD [address] [place] [address] 06/04/2025 10:30 AM EST Clinical Support [facility] MED & PEDS 505 [place] [address] Elsa Barnett RN 505 [place] [address] documented as of this encounter Goals Goal [...] documented as of this encounter Care Teams Grain Oilseed Or Pasture Farm Worker Relationship Specialty Start Date End Date Juan Miguel Tinajero MD 505 [place] [address] PCP - General Internal Medicine 05/28/18 Juan Cordova PharmD 505 [place] [address] Pharmacist Internal Medicine 07/14/22 Aidee Mejia 12/29/24 01/07/25 Yvonne Knox Industrial PharmacistMiddle School Guidance Counselor 02/15/23 Yvonne Knox Industrial PharmacistMiddle School Guidance Counselor 04/09/24 documented as of this encounter
--- OUTSIDE RECORDS SUMMARY | 2025-03-31 07:56 | XMS_ITS | Encounter Summary ---
Author Organization [employer] Address [address] [facility] 7t [place] [address] Care Team Providers Care Home Care Coordinator Name Role Phone Juan Miguel Tinajero MD Primary Care Provider [phone] Juan Cordova PharmD Unavailable Unavail able Encounter Details Date Type Department Care Team ([facility] st Contact Info) Description 02/09/2025 Orders Only [facility] CHC MED & PEDS [address] [place], [place] [phone] Juan Miguel Tinajero MD [address] [place] [address] Normocytic anemia (Primary Dx); Benign essential hypertension Social History Tobacco Use [...] Description 03/31/2025 1:30 PM EST Office Visit [facility] MED & PEDS [address] [place] [address] Juan Miguel Tinajero MD [address] [place] [address] 06/04/2025 10:30 AM EST Clinical Support [facility] MED & PEDS [address] [place] [address] Elsa Barnett, JENS [address] [place] [address] Scheduled Orders Name Type Priority Associated Diagnoses Orde r Schedule CBC auto differential Lab Routine Normocytic anemia Expected: 02/09/2025 (Approximate), Expires: 02/09/2026 documented as of this encounter Goals Goal Patient Goal Type Associated Problems Recent Progress Patient-Stated? Author Blood Pressure < 140/90 Blood Pressure 156/84(2024 9:10 AM EDT) No DelJuan delgado, PharmD Hemoglobin A1c < 7 Result Component 7.7( 10:26 AM EDT) No JefelogJuan mtz, PharmD documented as of this encounter Visit Diagnoses Diagnosis Normocytic anemia- Primary Unspecified anemia Benign essential hypertension Essential hypertension, benign documented in this encounter Additional Health Concerns Assessment Noted Time PHQ-9 Depression Total Score: 0 01/15/20 25 9:12 AM EDT documented as of this encounter Care Teams Home Care Coordinator Relationship Specialty Start Date End Date Juan Miguel Tinajero MD [address] [place] [address] PCP - General Internal Medicine 05/28/18 Juan Cordova PharmD [address] [place] [address] Pharmacist Internal Medicine 07/14/22 Yvonne Knox Generation TechnicianTube Molder Fiberglass 02/15/23 Yvonne Knox Generation TechnicianTube Molder Fiberglass 04/09/24 documented as of this encounter
--- OUTSIDE RECORDS SUMMARY | 2025-03-31 07:56 | XMS_ITS | Encounter Summary ---
Author Organization [employer] Address 75 [facility] 7t [place] [address] Care Team Providers Care Director Data Analytics Name Role Phone Juan Miguel Tinajero MD Primary Care Provider [phone] Juan Cordova PharmD Unavailable Unavail able Aidee Mejia Unavailable Reason for Visit * Reason Comments Med Refill Encounter Details Date Type Department Care Team ([facility] Contact Info) Description 12/07/2024 Refill [facility] CHC MED & PEDS [address] [place], [place] [phone] Juan Miguel Tinajero MD [address] [place] [address] Chronic pain syndrome; Sore throat; Bacterial conjunctivitis [...] [facility] MED & PEDS [address] [place] [address] Juan Miguel Tinajero MD [address] [place] [address] 06/04/2025 10:30 AM EST Clinical Support [facility] MED & PEDS [address] [place] [address] Elsa Barnett RN [address] [place] [address] documented as of this encounter Goals Goal [...] documented as of this encounter Care Teams Director Data Analytics Relationship Specialty Start Date End Date Juan Miguel Tinajero MD [address] [place] [address] PCP - General Internal Medicine 05/28/18 Juan Cordova PharmD [address] [place] [address] Pharmacist Internal Medicine 07/14/22 Aidee Mejia 12/29/24 01/07/25 Yvonne Knox Instructional Technology TeacherHospice Clinical Marketer 02/15/23 Yvonne Knox Instructional Technology TeacherHospice Clinical Marketer 04/09/24 documented as of this encounter
--- OUTSIDE RECORDS SUMMARY | 2025-03-31 07:57 | XMS_ITS | Encounter Summary ---
Author Organization [employer] Address [address] [facility] 7t [place] [address] Care Team Providers Care Child And Family Services Specialist Name Role Phone Juan Miguel Tinajero MD Primary Care Provider [phone] Juan Cordova PharmD Unavailable Unavail able Aidee Mejia Unavailable Encounter Details Date Type Department Care Team ([facility] st Contact Info) Description 06/14/2023 Orders Only [facility] CHC MED & PEDS [address] [place], [place] [phone] Juan Miguel Tinajero MD [address] [place] [address] Benign essential hypertension Social History Tobacco Use [...] Description 03/31/2025 1:30 PM EST Office Visit [facility] MED & PEDS [address] [place] [address] Juan Miguel Tinajero MD [address] [place] [address] 06/04/2025 10:30 AM EST Clinical Support [facility] MED & PEDS [address] [place] [address] Elsa Barnett RN 505 [place] [address] documented as of this encounter Goals Goal [...] documented as of this encounter Care Teams Child And Family Services Specialist Relationship Specialty Start Date End Date Juan Miguel Tinajero MD [address] [place] [address] PCP - General Internal Medicine 05/28/18 Juan Cordova, EbonieD [address] [place] [address] Pharmacist Internal Medicine 07/14/22 Aidee Mejia 12/29/24 01/07/25 Yvonne Knox Clinic AssistantBusiness Unit Controller 02/15/23 Yvonne Knox Clinic AssistantBusiness Unit Controller 04/09/24 documented as of this encounter
--- OUTSIDE RECORDS SUMMARY | 2025-03-31 07:57 | XMS_ITS | Clinical Summary ---
Author Organization [facility] ity Address [address] [place] [address] Care Team Providers Care Rigger Chief Name Role Phone Unavailable Primary Care Provider [...]
--- OUTSIDE RECORDS SUMMARY | 2025-03-31 07:57 | XMS_ITS | Encounter Summary ---
Author Organization [employer] Address [address] [place] [address] 7t [place] [address] Care Team Providers Care Imcu Specialist Name Role Phone Juan Miguel Tinajero MD Primary Care Provider [phone] Juan Cordova PharmD Unavailable Unavail able Aidee Mejia Unavailable Reason for Visit * Reason Comments Med Refill Encounter Details Date Type Department Care Team ([facility] Contact Info) Description 12/18/2022 Refill [facility] CHC MED & PEDS [address] [place], [place] [phone] Juan Miguel Tinajero MD [address] [place] [address] Back pain, unspecified back location, unspecified back [...] Department Care Team (Late Contact Info) Description 03/31/2025 1:30 PM EST Office Visit [facility] MED & PEDS [address] [place] [address] Juan Miguel Tinajero MD [address] [place] [address] 06/04/2025 10:30 AM EST Clinical Support [facility] MED & PEDS [address] [place] [address] Elsa Barnett, JENS [address] [place] [address] documented as of this encounter Goals Goal [...] documented as of this encounter Care Teams Imcu Specialist Relationship Specialty Start Date End Date Juan Miguel Tinajero MD [address] [place] [address] PCP - General Internal Medicine 05/28/18 Juan Cordova, PharmD [address] [place] [address] Pharmacist Internal Medicine 07/14/22 Aidee Mejia 12/29/24 01/07/25 Yvonne Knox Leadership Development ConsultantCompliance Clerk 02/15/23 Yvonne Knox Leadership Development ConsultantCompliance Clerk 04/09/24 documented as of this encounter
--- OUTSIDE RECORDS SUMMARY | 2025-03-31 07:57 | XMS_ITS | Encounter Summary ---
Author Organization [employer] Address [address] [facility] 7t [place] [address] Care Team Providers Care Machinist Mechanic Name Role Phone Juan Miguel Tinajero MD Primary Care Provider [phone] Juan Cordova PharmD Unavailable Unavail able Aidee Mejia Unavailable Reason for Visit * Reason Onset Date Comments Med Refill header setup operator 09/07/2024 Encounter Details Date Type Department Care Team ([facility] st Contact Info) Description 09/07/[address] [facility] CHC MED & PEDS [address] [place], [place] [phone] Juan Miguel Tinajero MD [address] [place] [address] Dyshydrosis Social History Tobacco Use Types Packs/Day [...] EDT TC to pt via S # [id number]. MOBILE SALES CONSULTANT appt on 09/09/24 converted to a televisit. documented in this encounter Plan of Treatment Upcoming Encounters Date Type Department Care Team (Late st Contact Info) Description 03/31/2025 1:30 PM EST Office Visit [facility] MED & PEDS [address] [place] [address] Juan Miguel Tinajero MD [address] [place] [address] 06/04/2025 10:30 AM EST Clinical Support [facility] MED & PEDS [address] [place] [address] Elsa Barnett RN [address] [place] [address] documented as of this encounter Goals Goal Patient Goal Type Associated Problems Recent Progress Patient-Stated? Author Blood Pressure < 140/90 Blood Pressure 156/84(2024 9:10 AM EDT) No Juan Cordova PharmD Hemoglobin A1c < 7 Result Component 7.7( 10:26 AM EDT) No Juan Cordova PharmD documented as of this encounter Visit Diagnoses Diagnosis Dyshydrosis Dyshidrosis documented in this encounter Additional Health Concerns Assessment Noted Time PHQ-9 Depression Total Score: 0 10/30/19 10:10 AM EDT documented as of this encounter Care Teams Machinist Mechanic Relationship Specialty Start Date End Date Juan Miguel Tinajero MD [address] [place] [address] PCP - General Internal Medicine 05/28/18 Juan Cordova, Benjamin [address] [place] [address] Pharmacist Internal Medicine 07/14/22 Aidee Mejia 12/29/24 01/07/25 Yvonne Knox Divorce MediatorMedical Affairs Manager 02/15/23 Yvonne Knox Divorce MediatorMedical Affairs Manager 04/09/24 documented as of this encounter
--- OUTSIDE RECORDS SUMMARY | 2025-03-31 07:57 | XMS_ITS | Encounter Summary ---
Author Organization [employer] Address [address] [facility] 7t [place] [address] Care Team Providers Care Canvas Baster Jumpbasting Name Role Phone Juan Miguel Tinajero MD Primary Care Provider [phone] Juan Cordova PharmD Unavailable Unavail able Encounter Details Date Type Department Care Team ([facility] st Contact Info) Description 01/14/2025 Orders Only [facility] CHC MED & PEDS [address] [place], [place] [phone] Juan Miguel Tinajero MD [address] [place] [address] Normocytic anemia (Primary Dx) Social History Tobacco [...] Description 03/31/2025 1:30 PM EST Office Visit [facility] MED & PEDS [address] [place] [address] Juan Miguel Tinajero MD [address] [place] [address] 06/04/2025 10:30 AM EST Clinical Support [facility] MED & PEDS [address] [place] [address] Elsa Barnett, JENS 505 [place] [address] documented as of this encounter Goals Goal Patient Goal Type Associated Problems Recent Progress Patient-Stated? Author Blood Pressure < 140/90 Blood Pressure 156/84(2024 9:10 AM EDT) No DellogJuan mtz, PharmD Hemoglobin A1c < 7 Result Component 7.7( 10:26 AM EDT) No DellogJuan mtz, PharmD documented as of this encounter Procedures Procedure Name Priority Date/Time Associated Diagnosis Comments CBC WITH AUTO DIFFERENTIAL Routine 02/09/2025 10:38 AM EDT Normocytic anemia documented in this encounter Results * (ABNORMAL) CBC auto differential (02/09/2025 10:38 AM EDT) White Blood Count 8.2 4.8 - 10.8 X10*3/uL [facility] Red Blood Count 3.86(L) 4.60 - 5.80 X10*6/uL [facility] Hemoglobin 10.6(L) 14.0 - 18.0 g/dl [facility] Hematocrit 31.7(L) 42.0 - 52.0 % [facility] Mean Corpuscular Volume 82.1 80.0 - 98.0 fL [facility] Mean Corpuscular Hemoglobin 27.5 27.0 - 33.0 pg [facility] Mean Corpuscular HGB Conc 33.4 31.0 - 36.0 g/dl [facility] Red Cell Distribution Width 15.7 11.0 - 16.0 % [facility] Platelet Count 219 160 - 400 X10*3/uL [facility] Mean Platelet Volume 10.7 9.4 - 12.4 fL [facility] Neutrophils Percent Auto 62.4 45 - 73 % [facility] Imm Gran Pct Auto 0.2 0.0 - 0.4 % [facility] Lymphocytes Percent Auto 26.4 20 - 40 % [facility] Monocytes Percent Auto 6.1 2 - 11 % [facility] Eosinophils Percent Auto 4.5(H) 0 - 4 % [facility] Basophils Percent Auto 0.4 0 - 2 % [facility] NRBC Pct Auto 0.0 0.0 - 0.2 /100WBC [facility] Neutrophils Absolute Auto 5.1 2.0 - 8.3 x10*3/uL [facility] Imm Gran Abs Auto 0.02 0.00 - 0.03 X10*3/uL [facility] Lymphocytes Absolute Auto 2.2 1.2 - 4.9 X10*3/uL [facility] Monocytes Absolute Auto 0.5 0.1 - 1.2 X10*3/uL [facility] Eosinophils Absolute Auto 0.4 0.0 - 0.4 X10*3/uL [facility] Basophils Absolute Auto 0.0 0.0 - 0.2 X10*3/uL [facility] NRBC Abs Auto 0.000 0.0 - 0.012 X10*3/uL [facility] Blood Venous blood specimen / Unknown 02/09/2025 10:38 AM EDT 02/09/2025 2:00 PM EDT Juan Miguel Tinajero MD LAB BLOOD ORDERABLES Final Result [facility] [address] [place] [address] [phone] documented in this encounter Visit Diagnoses Diagnosis Normocytic anemia- Primary Unspecified anemia documented in this encounter Additional Health Concerns Assessment Noted Time PHQ-9 Depression Total Score: 0 01/15/20 25 9:12 AM EDT documented as of this encounter Care Teams Canvas Baster Jumpbasting Relationship Specialty Start Date End Date Juan Miguel Tinajero MD [address] [place] [address] PCP - General Internal Medicine 05/28/18 Juan Cordova, EbonieD [address] [place] [address] Pharmacist Internal Medicine 07/14/22 Yvonne Knox Sheet Metal WorkerVp Medical 02/15/23 Yvonne Knox Sheet Metal WorkerVp Medical 04/09/24 documented as of this encounter
--- OUTSIDE RECORDS SUMMARY | 2025-03-31 07:57 | XMS_ITS | Encounter Summary ---
Author Organization [employer] Address [address] [facility] 7 [place] [address] Care Team Providers Care Neon Sign Maker Name Role Phone Juan Miguel Tinajero MD Primary Care Provider [phone] Juan Cordova PharmD Unavailable Unavail able Reason for Visit * Reason Onset Date Comments Chart Prep 03/30/2025 Encounter Details Date Type Department Care Team ([facility] Contact Info) Description 03/30/2025 Telephone [facility] CHC MED & PEDS [address] [place], [place] [phone] Juan Miguel Tinajero MD [address] [place] [address] Chart Prep Social History Tobacco Use Types Packs/Day Years [...] Recorded What is your housing situation today? I have basia dusty 02/17/[address] you li ve. Do you have problems with any of the following? None of the above 02/17/2025 Food Insecurity Answer Date Recorded Within the past 12 months, y ou worried that your food would run out before you got money to buy more: Sometimes True 2024 Within the past 12 months,th e food you bought just didn't last and you didn't have enough money to get more: Sometimes True 02/17/2025 Transportation Answer Date Recorded In the past [...] Access Answer Date Recorded Internet Access Q1 No 02/17/2025 Internet Access Q2 My internet/Wi-Fi ac cess is not consistent or reliable 02/17/2025 Sex and Gender Information Value Date Recorded Sex Assigned at Male 03/27/2022 10:21 AM EDT Legal Sex Male 10:21 AM EDT Gender Identity Choose not to disclose 10:21 AM EDT Sexual Orientation Choose not to disclose 2021 10:21 AM EDT documented as of this encounter Miscellaneous Notes * Telephone Encounter - Siobhan High [place] - 03/30/2025 10:55 AM EST Chart Prep Labs: not done Images: not applicable Referrals: complete Vaccines due: RSV Screenings: colonoscopy Overdue care gaps: Glucose and Oral health screening documented in this encounter Plan of Treatment Upcoming Encounters Date Type Department Care Team (Late st Contact Info) Description 03/31/2025 1:30 PM EST Office Visit [facility] MED & PEDS [address] [place] [address] Juan Miguel Tinajero MD [address] [place] [address] 06/04/2025 10:30 AM EST Clinical Support [facility] MED & PEDS [address] [place] [address] Elsa Barnett RN [address] [place] [address] documented as of this encounter Goals Goal Patient Goal Type Associated Problems Recent Progress Patient-Stated? Author Blood Pressure < 140/90 Blood Pressure 156/84(2024 9:10 AM EDT) No Juan Cordova, PharmConstantin Hemoglobin A1c < 7 Result Component 7.7( 10:26 AM EDT) No Juan Crodova, PharmD documented as of this encounter Visit Diagnoses Not on filedocumented in this encounter Additional Health Concerns Assessment Noted Time PHQ-9 Depression Total Score: 0 01/15/20 25 9:12 AM EDT documented as of this encounter Care Teams Neon Sign Maker Relationship Specialty Start Date End Date Juan Miguel Tinajero MD [address] [place] [address] PCP - General Internal Medicine 05/28/18 Juan Cordova, PharmD [address] [place] [address] Pharmacist Internal Medicine 07/14/22 Yvonne Knox Roll BuilderGovernment Services Professional 02/15/23 Yvonne Knox Roll BuilderGovernment Services Professional 04/09/24 documented as of this encounter
--- OUTSIDE RECORDS SUMMARY | 2025-03-31 07:57 | XMS_ITS | Encounter Summary ---
Author Organization [employer] Address 75 [facility] 7t [place] [address] Care Team Providers Care Short Haul Driver Name Role Phone Juan Miguel Tinajero MD Primary Care Provider [phone] Juan Cordova PharmD Unavailable Unavail able Aidee Mejia Unavailable Reason for Visit * Reason Comments Med Refill Encounter Details Date Type Department Care Team ([facility] Contact Info) Description 06/28/2023 Refill [facility] CHC MED & PEDS [address] [place], [place] [phone] Juan Miguel Tinajero MD [address] [place] [address] Moderate persistent asthma without complication Social History [...] 1:30 PM EST Office Visit [facility] MED & PEDS [address] [place] [address] Juan Miguel Tinajero MD [address] [place] [address] 06/04/2025 10:30 AM EST Clinical Support [facility] MED & PEDS [address] [place] [address] Elsa Barnett, RN [address] [place] [address] documented as of this encounter Goals Goal [...] documented as of this encounter Care Teams Short Haul Driver Relationship Specialty Start Date End Date Juan Miguel Tinajero MD [address] [place] [address] PCP - General Internal Medicine 05/28/18 Juan Cordova PharmD [address] [place] [address] Pharmacist Internal Medicine 07/14/22 Aidee Mejia 12/29/24 01/07/25 Yvonne Knox Data Reporting AnalystRoller Coaster Operator 02/15/23 Yvonne Knox Data Reporting AnalystRoller Coaster Operator 04/09/24 documented as of this encounter
--- OUTSIDE RECORDS SUMMARY | 2025-03-31 07:57 | XMS_ITS | Encounter Summary ---
Author Organization [employer] Address 75 [facility] 7t [place] [address] Care Team Providers Care Wax Pumper Name Role Phone Juan Miguel Tinajero MD Primary Care Provider [phone] Juan Cordova PharmD Unavailable Unavail able Aidee Mejia Unavailable Encounter Details Date Type Department Care Team ([facility] Contact Info) Description 05/05/2022 Orders Only [facility] MEDICINE [address] [place], [place] [phone] Juan Miguel Tinajero MD [address] [place], [place] [phone] Social History Tobacco Use Types Packs/Day Years [...] Encounters Date Type Department Care Team ([facility] Contact Info) Description 03/31/2025 1:30 PM EST Office Visit [facility] CHC MED & PEDS [address] [place] [address] Juan Miguel Tinajero MD [address] [place] [address] 06/04/2025 10:30 AM EST Clinical Support [facility] MED & PEDS [address] [place] [address] Elsa Barnett, JENS [address] [place] [address] documented as of this encounter Goals Goal Patient Goal Type Associated Problems Recent Progress Patient-Stated? Author Hemoglobin A1c < 7 Result Component 7.7(01/14/2025 10:26 AM EDT) No Juan Cordova, PharmD documented as of this encounter Visit Diagnoses Not on filedocumented in this encounter Care Teams Wax Pumper Relationship Specialty Start Date End Date Juan Miguel Tinajero MD [address] [place] [address] PCP - General Internal Medicine 05/28/18 Juan Cordova, PharmD [address] [place] [address] Pharmacist Internal Medicine 07/14/22 Aidee Mejia 12/29/24 01/07/25 Yvonne Knox Rack MakerPressure Tester Operator 02/15/23 Yvonne Knox Rack MakerPressure Tester Operator 04/09/24 documented as of this encounter
--- OUTSIDE RECORDS SUMMARY | 2025-03-31 07:57 | XMS_ITS | Encounter Summary ---
Author Organization [employer] Address 75 [facility] 7t [place] [address] Care Team Providers Care Lead Quality Control Technician Name Role Phone Juan Miguel Tinajero MD Primary Care Provider [phone] Juan Cordova PharmD Unavailable Unavail able Aidee Mejia Unavailable Reason for Visit * Reason Onset Date Comments ER Follow-up 07/20/2023 Encounter Details Date Type Department Care Team (Late st Contact Info) Description 07/20/2023 Telephone [facility] MEDICINE [address] [place] [address] Juan Miguel Tinajero MD [address] [place] [address] ER Follow-up Social History Tobacco Use Types [...] AM EST TC placed to patient via [email or web address] regarding message below. Patient reports that 8 days ago, he had a fall and hit his L side and was evaluated at [facility] ED. They said he didn't break anything, but he is continuing to have L-sided pain in the area of his ribs. He denies bruising in the area,and he says that aspirin, tramadol, and another anti-inflammatory that was prescribed are not helping. Denies other symptoms. Advised to go to [place] at [facility] today for evaluation and patient agrees. Patient [...] ED visit on : Date: 07/12/2023 Hospital: [facility] Seen for: Fall Patient advised will forward to team nurse for follow up. Symptom: Chest Injury Outcome: Talk to a nurse or provider within 15 minutes Reason: Left Rib The caller accepted this outcome Yvonne Roseline [phone] * Telephone Encounter - Tsering Pastrana - 07/20/2023 11:40 AM EST Patient calling to report ED visit on : Date: 07/12/2023 Hospital: [facility] Seen for: Fall Patient advised will forward to team nurse for follow up. Symptom: Chest Injury Outcome: Talk to a nurse or provider within 15 minutes Reason: Left Rib The caller accepted this outcome Yvonne [facility] [phone] documented in this encounter Plan of Treatment Upcoming Encounters Date Type Department Care Team (Late st Contact Info) Description 03/31/2025 1:30 PM EST Office Visit [facility] MED & PEDS [address] [place] [address] Juan Miguel Tinajero MD [address] [place] [address] 06/04/2025 10:30 AM EST Clinical Support [facility] MED & PEDS [address] [place] [address] Elsa Barnett RN [address] [place], [place] [phone] documented as of this encounter Goals Goal Patient Goal Type Associated Problems Recent Progress Patient-Stated? Author Blood Pressure < 140/90 Blood Pressure 156/84(2024 9:10 AM EDT) No DellogJuan mtz, PharmD Hemoglobin A1c < 7 Result Component 7.7( 10:26 AM EDT) No Dellogono Juan, PharmD documented as of this encounter Visit Diagnoses Not on filedocumented in this encounter Additional Health Concerns Assessment Noted Time PHQ-9 Depression Total Score: 3 07/03/19 24 9:13 AM EST documented as of this encounter Care Teams Lead Quality Control Technician Relationship Specialty Start Date End Date Juan Miguel Tinajero MD [address] [place] [address] PCP - General Internal Medicine 05/28/18 Juan Cordova, PharmD [address] [place] [address] Pharmacist Internal Medicine 07/14/22 Aidee Mejia 12/29/24 01/07/25 Yvonne Knox Table And Desk FinisherKiln Labourer 02/15/23 Yvonne Knox Table And Desk FinisherKiln Labourer 04/09/24 documented as of this encounter
--- OUTSIDE RECORDS SUMMARY | 2025-03-31 07:57 | XMS_ITS | Clinical Summary ---
Author Organization [employer] Address [address] [facility] [address] [place] [address] Care Team Providers Care Terrazzo Tile Setter Name Role Phone Juan Miguel Tinajero MD Primary Care Provider [phone] Juan Cordova PharmD Unavailable Unavail able Allergies [...] / DIRECTED 023 Active Continuous Blood Gluc Home Theater Specialist (FreeStyle Michael 2 [place]) deviceIndications: Type 2 diabetes mellitus with other circulatory complication, with long-term current use of insulin ([facility]) Use to check blood sugar as directed 1 each 023 Active glucose 4 g chewable tabletIndications: Type 2 diabetes mellitus with other circulatory complication, with long-term current use of insulin ([facility]) Chew 4 tablets (16 g) if needed [...] complication, with long-term current use of insulin ([facility]) USE TO TEST BLOOD SUGAR CHANGE AFTER TWO WEEKS, THREE TIMES DAILY 2 each 023 Active Alcohol Swabs (Alcohol Prep) 70 % padsIndications:Ty pe 2 diabetes mellitus with diabetic peripheral angiopathy without gangrene, with long-term current use of insulin ([facility]) USE FIVE DAILY 100 each 11 024 Active Diclofenac Sodium 1 % gelIndications:Chr onic right shoulder pain APPLY 2 GRAM'S TO AFFECTED AREA(s) FOUR TIMES DAILY NEEDED 100 g 1 024 Active FT Earwax Removal 6.5 % otic solutionIndication s:Impacted cerumen of right ear PLACE 5 TO 10 DROPS IN AFFECTED EAR(S) TWICE DAILY FOR FOUR DAYS 15 mL 1 025 Active Acetaminophen Extra Strength 500 MG tabletIndications: Chronic pain syndrome TAKE TWO TABLETS EVERY 6 HOURS NEEDED FOR PAIN 40 tablet 1 025 Active Easy Touch Lancets 33G/Twist miscIndications:Ty pe 2 diabetes mellitus with other circulatory complication, with long-term current use of insulin ([facility]) TEST BLOOD SUGAR FIVE TIMES DAILY 200 [...] complication, with long-term current use of insulin ([facility]) INJECT 35 UNITS SUBCUTANEOUSLY DAILY 15 mL 3 025 Active FREESTYLE LITE test stripIndications:T ype 2 diabetes mellitus with diabetic peripheral angiopathy without gangrene, with long-term current use of insulin ([facility]) TEST BLOOD SUGAR FIVE TIMES DAILY 150 strip 5 025 Active Aspirin Adult Low Strength 81 MG EC tabletIndications: Benign essential hypertension TAKE ONE TABLET EVERY MORNING 90 tablet 1 025 Active risperiDONE (RisperDAL) 3 MG tabletIndications: MDD (major depressive disorder), recurrent, severe, with psychosis (CMS/HCC) ([facility]) TAKE 1 TABLET BY MOUTH AT BEDTIME [...] AT BEDTIME 90 capsule 5 025 Active triamcinolone (Kenalog) 0.1 % creamIndications:S kin rash Apply topically if needed in the morning and at bedtime (pain and swelling). 80 g 2 025 Active cetirizine (ZyrTEC) 10 MG tabletIndications: Skin rash Take 1 tablet (10 mg) by mouth Once per day. 30 tablet 11 /20/2 025 01/14 Active atorvastatin (Lipitor) 80 MG tablet TAKE ONE TABLET EVERY NIGHT AT BEDTIME 90 tablet 1 Active amLODIPine (Norvasc) 10 MG tablet TAKE ONE TABLET EVERY MORNING 90 tablet 1 Active amLODIPine (Norvasc) 2.5 MG tabletIndications: Benign essential hypertension Take 2 tablets (5 mg) by mouth Once per day. 60 tablet 025 02/18 Active TechLite [place] 32G X 4 MM misc USE FIVE DAILY 100 each Active Mounjaro 5 MG/0.5ML solution auto-injectorIndic ations:Type 2 diabetes mellitus with both eyes affected by mild nonproliferative retinopathy without macular edema, with long-term current use of insulin ([facility]) INJECT ONE PEN (=5MG) SUBCUTANEOUSLY ONCE A WEEK DIRECTED 2 mL 2 Active acetaminophen (Tylenol 8 Hour) 650 MG ER tabletIndications: Chronic pain syndrome,Sore throat,Bacterial conjunctivitis TAKE TWO TABLETS BY MOUTH EVERY EIGHT HOURS NEEDED FOR PAIN DO NOT EXCEED SIX TABLETS PER 24 HOURS 40 tablet 1 Active traMADol (Ultram) 50 MG tabletIndications: Chronic right shoulder pain,Pain in right shoulder,Back pain, unspecified back location, unspecified back pain laterality, unspecified chronicity TAKE ONE TABLET BY MOUTH EVERY EIGHT HOURS NEEDED FOR SEVERE PAIN 84 tablet Active cilostazol (Pletal) 100 MG tabletIndications: Peripheral arterial occlusive disease TAKE ONE TABLET TWICE DAILY IN THE MORNING AND AT BEDTIME 30 MINUTES BEFORE MEALS 60 tablet 1 Active Ferrous Sulfate (iron) 325 (65 Fe) MG tabletIndications: Normocytic anemia TAKE ONE TABLET EVERY MORNING. DO NOT BREAK, CRUSH, DISSOLVE OR CHEW 90 tablet Active Mounjaro 5 MG/0.5ML solution auto-injectorIndic ations:Type 2 diabetes mellitus with both eyes affected by mild nonproliferative retinopathy without macular edema, with long-term current use of insulin ([facility]) INJECT ONE PEN (=5MG) SUBCUTANEOUSLY ONCE A WEEK DIRECTED 2 mL 2 025 10/08 /2025 Discontinued cilostazol (Pletal) 100 MG tabletIndications: Peripheral arterial occlusive disease TAKE ONE TABLET TWICE DAILY IN THE MORNING AND AT BEDTIME 30 MINUTES BEFORE MEALS OR TWO HOURS BEFORE BREAKFAST AND SUPPER 60 tablet 1 025 03/30 Discontinued ferrous sulfate (Fe Tabs) 325 (65 Fe) MG EC tabletIndications: Normocytic anemia 1 tablet the day. Do not crush, chew, or split. 30 tablet 1 025 03/30 Discontinued acetaminophen (Tylenol 8 Hour) 650 MG ER tabletIndications: Chronic pain syndrome,Sore throat,Bacterial conjunctivitis TAKE TWO TABLETS EVERY 8 HOURS NEEDED FOR PAIN. NO MORE THAN SIX TABLETS PER 24 HOURS 40 tablet 1 025 03/09 Discontinued traMADol (Ultram) 50 MG tabletIndications: Chronic right shoulder pain,Pain in right shoulder,Back pain, unspecified back location, unspecified back pain laterality, unspecified chronicity TAKE ONE TABLET EVERY 8 HOURS NEEDED FOR SEVERE PAIN 84 tablet 025 03/18 Discontinued chlorhexidine (Periogard) 0.12 % solutionIndication s:Gingivitis, acute Use 15 mL in the mouth or throat if needed for wound care for up to 14 days. 473 mL 025 03/03 Active Problems Problem Noted Date Diagnosed Date [...] disorder, r ecurrent, severe with psychotic features (CMS/HCC) 07/04/2022 Assessment & Plan (10/30/2023 11:07 AM EDT): Prior history suicide attempts and hospitalizations. Still doing extremely well despite serious health conditions. Continue Risperidone 3 mg daily. He also takes Tramadol 50 mg TID prn and Gabapentin 600 mg TID for chronic back and shoulder pain. Gets regular TAR DISTILLATION SUPERVISOR follow up and has Narcan prescribed. Has [...] chronic back and shoulder pain. Gets regular TAR DISTILLATION SUPERVISOR follow up and has Narcan prescribed. Will [...] chronic back and shoulder pain. Gets regular TAR DISTILLATION SUPERVISOR follow up and has Narcan prescribed. He [...] chronic back and shoulder pain. Gets regular TAR DISTILLATION SUPERVISOR follow up and has Narcan prescribed. He [...] chronic back and shoulder pain. Gets regular TAR DISTILLATION SUPERVISOR follow up and has Narcan prescribed. F/U with me in 3 months. He agrees with the plan. Assessment & Plan (10/02/2022 10:49 AM EDT): Prior history suicide attempts and hospitalizations. Still doing extremely well. Hallucinations controlled. Continue Risperidone 3 mg daily. He also takes Tramadol 50 mg TID prn and Gabapentin 600 mg TID for chronic back and shoulder pain. Gets regular TAR DISTILLATION SUPERVISOR follow up and has Narcan prescribed. F/U [...] Asthma 04/14/2021 Stage 3a chronic kidney disease (CMS/HCC) 2020 Complains of low back pain 09/21/2020 Benign [...] Encounters Date Type Department Care Team Description 03/30/2025 Telephone [facility] [address] [place] [address] Juan Miguel Tinajero MD Chart Prep 03/28/2025 Refill [facility] [address] [place] [address] Juan Miguel Tinajero MD Peripheral arterial occlusive disease; Normocytic anemia 03/18/2025 Refill [facility] [address] [place] [address] Juan Miguel Tinajero MD Chronic right shoulder pain; Pain in right shoulder; Back pain, unspecified back location, unspecified back pain laterality, unspecified chronicity 03/08/2025 Refill [facility] [address] [place] [address] Juan Miguel Tinajero MD Chronic pain syndrome; Sore throat; Bacterial conjunctivitis 03/04/2025 Refill [facility] [address] [place] [address] Juan Miguel Tinajero MD Type 2 diabetes mellitus with both eyes affected by mild nonproliferative retinopathy without macular edema, with long-term current use of insulin ([facility]) 02/19/2025 Refill [facility] [address] [place] [address] Juan Miguel Tinajero MD 02/17/2025 9:15 AM EDT Office Visit [facility] [address] [place] [address] Juan Miguel Tinajero MD Benign essential hypertension (Primary Dx); Type 2 diabetes mellitus with both eyes affected by mild nonproliferative retinopathy without macular edema, with long-term current use of insulin ([facility]); Stage 3a chronic kidney disease ([facility]/HCC); 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, initial encounter ([facility]); Gingivitis, acute; Immunization due; Dietary counseling; Exercise counseling; Class 1 obesity due to excess calories with serious comorbidity and body mass index (BMI) of 32.0 to 32.9 in adult 02/17/2025 Patient Outreach [facility] [address] [place] [address] Juan Miguel Tinajero MD Care Coordination (CHW outreach for SDOH-patient declined to participate ) 02/17/2025 Telephone [facility] [address] [place] [address] Juan Miguel Tinajero MD Medication Question 02/17/2025 Travel 02/16/2025 Telephone [facility] [address] [place] [address] Juan Miguel Tinajero MD chart prep 02/11/2025 Refill [facility] [address] [place] [address] Juan Miguel Tinajero MD Chronic pain syndrome; Sore throat; Bacterial conjunctivitis; Chronic right shoulder pain; Pain in right shoulder; Back pain, unspecified back location, unspecified back pain laterality, unspecified chronicity 02/10/2025 Results Follow-Up [facility] [address] [place] [address] Rosa Isela Marques RN CBC auto differential 02/09/2025 Orders Only [facility] [address] [place] [address] Juan Miguel Tinajero MD Normocytic anemia (Primary Dx); Benign essential hypertension 02/04/2025 Refill [facility] [address] [place] [address] Armen Webb MD Peripheral arterial occlusive disease (CMS/HCC) 02/02/2025 9:30 AM EDT Telemedicine [facility] [address] [place] [address] Elsa Barnett RN Back pain, unspecified back location, unspecified back pain laterality, unspecified chronicity 02/02/2025 Refill [facility] [address] [place] [address] Elsa Barnett RN 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, initial encounter ([facility]) 02/02/2025 Travel 01/28/2025 Refill [facility] [address] [place] [address] Juan Miguel Tinajero MD 01/21/2025 Refill [facility] [address] [place] [address] Juan Miguel Tinajero MD 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, initial encounter ([facility]) 01/15/2025 Telephone [facility] [address] [place] [address] Juan Miguel Tinajero MD Results 01/14/2025 9:15 AM EDT Office Visit [facility] [address] [place] [address] Juan Miguel Glasgow MD 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, initial encounter ([facility]) (Primary Dx); Skin rash; Type 2 diabetes mellitus with hyperglycemia, with long-term current use of insulin ([facility]) 01/14/2025 Orders Only [facility] [address] [place] [address] Juan Miguel Tinajero MD Normocytic anemia (Primary Dx) 01/14/2025 Travel 01/14/2025 Refill [facility] [address] [place] [address] Juan Miguel Tinajero MD Chronic pain syndrome; Sore throat; Bacterial conjunctivitis 01/13/2025 Telephone [facility] [address] [place] [address] Juan Miguel Tinajero MD Chart Prep 01/12/2025 Telephone [facility] [address] [place] [address] Juan Miguel Ovalle MD Hospital Follow-up 01/12/2025 Refill [facility] [address] [place] [address] Juan Miguel Tinajero MD Chronic right shoulder pain; Pain in right shoulder; Back pain, unspecified back location, unspecified back pain laterality, unspecified chronicity 01/08/2025 Refill [facility] [address] [place] [address] Juan Miguel Tinajero MD Complains of low back pain 01/07/2025 Patient Outreach [facility] [address] [place] [address] Juan Miguel Tinajero MD 12/29/2024 Patient Outreach [facility] [address] [place] [address] Juan Miguel Tinajero MD Care Coordination (CP Care Coordination Chart Review) 12/29/2024 Patient Outreach [facility] [address] [place] [address] Juan Miguel Tinajero MD from Last 3 Months Immunizations Immunization Administration Dates Next Due Hep B, adult 05/23/2024,08/21/2022,07/24/2022 Influenza Injectable Quadriv alant Preservative Free IIV4 MDCK 04/14/2021 Influenza injectable quadriv alent IIV4 with preservative 04/23/2017,02/17/2016 Influenza injectable quadriv alent preservative free 03/13/2023,02/22/2022,03/31/2020 Influenza, IIV3, injectable 02/23/2014 Influenza, seasonal, injecta ble, preservative free 02/17/2025,05/14/2024 Moderna Covid-19 Vaccine 12+ 05/03/2021,09/28/19 21,08/30/2020 Pfizer Covid-19 Vaccine 12+ 05/14/2024, 3,02/28/2022 Pfizer Covid-19 Vaccine 12+ Bivalent 02/28/2022 Pneumococcal Conjugate PCV 20 07/31/2023 Pneumococcal Polysaccharide PPSV23 12/10/2015 Tdap 05/23/2024,01/21/2014 Zoster, Recombinant 06/22/2020,04/01/2020,2019 Family History Medical History Relation Name Comments [...] your housing situation today? I have basia montano 02/17/[address] you li [...] Sign Reading Time Taken Comments Blood Pressure 156/84 02/17/2025 9:10 AM EDT Pulse 80 02/17/2025 9:10 AM EDT Temperature 37 C (98.6 F) 01/14/2025 9:11 AM EDT Respiratory Rate 20 02/17/2025 9:10 AM EDT Oxygen Saturation 98% 02/17/2025 9:10 AM EDT Inhaled Oxygen Concentration - - Weight 87.1 kg (192 lb) 02/17/2025 9:10 AM EDT Height 162.6 cm (5' 4 ) 02/17/2025 9:10 AM EDT Body Mass Index 32.96 02/17/2025 9:10 AM EDT Plan of Treatment Upcoming Encounters Date Type Department Care Team (Late st Contact Info) Description 03/31/2025 1:30 PM EST Office Visit [facility] [address] [place] [address] Juan Miguel Tinajero MD [address] [place] [address] 06/04/2025 10:30 AM EST Clinical Support [facility] [address] [place] [address] Elsa Barnett RN [address] [place] [address] Health Maintenance Due Date Last Done Comments [...] - Risk 60-74 years 1-dose series) 2020 Colonoscopy 10/06/2023 10/05/2022, 08/16/2021 Colorectal Cancer Screening 10/06/2023 Diabetes: Hemoglobin A1C 04/16/2025 025, 09/23/2024, 05/14/2024, Additional history exists Lipid Panel 05/14/2025 05/14/2024, 07/27/2022 Eye Exam 11/19/2025 11/19/2024, 10/27, 11/19/2024, Additional history exists Alcohol/Substance Use Screening 01/14/2026 01/14/2025 Depression Screening 01/14/2026 01/14/2025, 01/15/20 Disability Screening 01/14/2026 01/14/2025 Diabetes: Foot Exam 02/17/2026 02/17/2025, 05/14/2024, 03/13/2023, Additional history exists SDOH Screening 02/17/2026 02/17/2025 Tobacco Screening 02/18/2026 02/18/2025 DTaP/Tdap/Td Vaccines (3 - Td or Tdap) 05/23/2034 05/23/2024, 01/21/2014 Zoster Vaccines Completed 06/22/2020, 09/2019, 04/01/2020 Pneumococcal Vaccine: 50+ Years Completed 07/31/2023, 12/10/2015 COVID-19 Vaccine Completed 05/14/2024, , 02/28/2022, Additional history exists Hepatitis B Vaccines Completed 05/23/2024, 08/21/2022, 07/24/2022 Influenza Vaccine Completed 02/17/2025, , 03/13/2023, Additional history exists HIB Vaccines Aged Out No longer eligi [...] 7.7( 10:26 AM EDT) No Juan Cordova, Benjamin Procedures Procedure Name Priority Date/Time Associated Diagnosis Comments POCT GLUCOSE Routine 02/17/2025 10:42 AM EDT Type 2 diabetes mellitus with both eyes affected by mild nonproliferative retinopathy without macular edema, with long-term current use of insulin (CMS/[facility]) CBC WITH AUTO DIFFERENTIAL Routine 02/09/2025 10:38 AM EDT Normocytic anemia POCT GLYCATED HEMOGLOBIN, TOTAL Routine 01/14/2025 10:26 AM EDT Type 2 diabetes mellitus with hyperglycemia, with long-term current use of insulin (CMS/[facility]) POCT GLUCOSE Routine 01/14/2025 10:25 AM EDT Type 2 diabetes mellitus with hyperglycemia, with long-term current use of insulin (CMS/[facility]) BASIC METABOLIC PANEL Routine 01/14/2025 10:08 AM EDT 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, initial encounter (CMS/HCC) Type 2 diabetes mellitus with hyperglycemia, with long-term current use of insulin (CMS/[facility]) CBC WITH AUTO DIFFERENTIAL Routine 01/14/2025 10:08 AM EDT 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 [facility] Glucose Blood, POC 344(A) 60 - 200 mg/dL QC Media Lot # [id number] Lot# Expiration Date [id number] Comment:random Blood Capillary blood specimen / Unknown 02/17/2025 10:42 AM EDT Juan Miguel Tinajero MD POINT OF CARE TEST ENTER/ED IT ORDERABLES Final Result * (ABNORMAL) CBC auto differential (02/09/2025 10:38 AM EDT) Only the most recent of2 resultswithin the time period is included. White Blood Count 8.2 4.8 - 10.8 X10*3/uL [facility] Red Blood Count 3.86(L) 4.60 - 5.80 X10*6/uL [facility] Hemoglobin 10.6(L) 14.0 - 18.0 g/dl [facility] Hematocrit 31.7(L) 42.0 - 52.0 % [facility] Mean Corpuscular Volume 82.1 80.0 - 98.0 fL [facility] Mean Corpuscular Hemoglobin 27.5 27.0 - 33.0 pg [facility] Mean Corpuscular HGB Conc 33.4 31.0 - 36.0 g/dl [facility] Red Cell Distribution Width 15.7 11.0 - 16.0 % [facility] Platelet Count 219 160 - 400 X10*3/uL [facility] Mean Platelet Volume 10.7 9.4 - 12.4 fL [facility] Neutrophils Percent Auto 62.4 45 - 73 % [facility] Imm Gran Pct Auto 0.2 0.0 - 0.4 % [facility] Lymphocytes Percent Auto 26.4 20 - 40 % [facility] Monocytes Percent Auto 6.1 2 - 11 % [facility] Eosinophils Percent Auto 4.5(H) 0 - 4 % [facility] Basophils Percent Auto 0.4 0 - 2 % [facility] NRBC Pct Auto 0.0 0.0 - 0.2 /100WBC [facility] Neutrophils Absolute Auto 5.1 2.0 - 8.3 x10*3/uL [facility] Imm Gran Abs Auto 0.02 0.00 - 0.03 X10*3/uL [facility] Lymphocytes Absolute Auto 2.2 1.2 - 4.9 X10*3/uL [facility] Monocytes Absolute Auto 0.5 0.1 - 1.2 X10*3/uL [facility] Eosinophils Absolute Auto 0.4 0.0 - 0.4 X10*3/uL [facility] Basophils Absolute Auto 0.0 0.0 - 0.2 X10*3/uL [facility] NRBC Abs Auto 0.000 0.0 - 0.012 X10*3/uL [facility] Blood Venous blood specimen / Unknown 02/09/2025 10:38 AM EDT 02/09/2025 2:00 PM EDT Juan Miguel Tinajero MD LAB BLOOD ORDERABLES Final Result Performing Organization Address City/State/[facility] Co de Phone Number [facility] [address] [place] [phone] * (ABNORMAL) POCT HGB A1C (01/14/2025 10:26 AM EDT) [facility] Hemoglobin A1C 7.7(A) 4.0 - 5.7 % QC Media Lot # [id number] Lot# Expiration Date 26 Blood 01/14/2025 10:2 6 AM EDT Juan Miguel Tinajero MD POINT OF CARE TEST ENTER/ED IT ORDERABLES Final Result * (ABNORMAL) Basic Metabolic Panel (01/14/2025 10:08 AM EDT) [facility] Sodium 142 135 - 145 mmol/L [facility] Potassium 4.0 3.3 - 5.1 mmol/L [facility] Chloride 107 96 - 108 mmol/L [facility] Carbon Dioxide 24 22 - 29 mmol/L [facility] Anion Gap 15 12 - 20 [facility] Urea Nitrogen (BUN) 11 9 - 16 mg/dL [facility] Creatinine, Serum 1.19 0.5 - 1.4 mg/dL [facility] Estimated Glomerular Filt Rate >60 [facility] Comment:Chronic Kidney Disea se: Estimated GFR < 60 mL/min/[id number] Kidney Disease: Estimated GFR < 15 mL/min/1.73m2 Glucose 130(H) 60 - 115 mg/dL [facility] Calcium 9.2 8.4 - 10.2 mg/dL [facility] Blood Venous blood specimen / Unknown 01/14/2025 10:08 AM EDT 01/14/2025 2:34 PM EDT us Juan Miguel Tinajero MD LAB BLOOD ORDERABLES Final Result [facility] [address] [place] [address] [phone] * Lipid Panel, Standard (05/14/2024 10:41 AM EST) Triglycerides 71 <150 mg/dL [facility] Comment:Desirable Triglyceri de: less than 150 mg/dLBorderline High Triglyceride 150-199 mg/dLHigh Triglyceride: 200-499 mg/dLVery High Triglyceride: greater than or equal to 5OO mg/dL Cholesterol 122 <200 mg/dL [facility] Comment:Desirable Cholestero l: less than 200 mg/dLBorderline High Cholesterol: 200-239 mg/dLHigh Cholesterol: greater than 239 mg/dL LDL Cholesterol Calculated 64 <100 mg/dL [facility] Comment:Desirable LDL: less than 100 mg/dLNear Optimal/Above Optimal LDL: 110- 129 mg/dLBorderline High LDL: 130-159 mg/dLHigh LDL: 160-189 mg/dLVery High LDL: greater than or equal to 190 mg/dL HDL Cholesterol 44 >40 mg/dL [facility] Comment:Desirable HDL: great er than 40 mg/dL Note: This HDL assay may give artificially low results in patients with liver disease. Blood Venous blood specimen / Unknown 05/14/2024 10:41 AM EST 05/14/2024 2:06 PM EST us Juan Miguel Tinajero MD LAB BLOOD ORDERABLES Final Result [facility] [address] [place] [address] [phone] * (ABNORMAL) Colonoscopy (10/05/2022) Anatomical Region Laterality Modality Endoscopy Narrative 10/05/2022 Poor prep johnathon right side internal hemorrhoids. us Historical Provider ENDOSCOPY PROCEDURE ORDER XANDER Final Result from Last 3 Months or Most Recently Relevant to Health Maintenance Insurance [facility] C3 DENTAL-[facility] MEDICAID STAND ADULT Care Teams Terrazzo Tile Setter Relationship Specialty Start Date End Date Juan Miguel Tinajero MD [address] [place] [address] PCP - General Internal Medicine 05/28/18 Juan Cordova, EbonieD [address] [place] [address] Pharmacist Internal Medicine 07/14/22 Yvonne Knox Pastry DecoratorVolleyball Referee 02/15/23 Yvonne Knox Pastry DecoratorVolleyball Referee 04/09/24
--- OUTSIDE RECORDS SUMMARY | 2025-03-31 07:57 | XMS_ITS | Encounter Summary ---
Author Organization [employer] Address [address] [facility] 7t [place] [address] Care Team Providers Care Shoe Cutter Name Role Phone Juan Miguel Tinajero MD Primary Care Provider [phone] Juan Cordova PharmD Unavailable Unavail able Aidee Mejia Unavailable Encounter Details Date Type Department Care Team (Late st Contact Info) Description 03/27/2023 Abstract [facility] MEDICINE [address] [place] [address] Juan Miguel Tinajero MD [address] [place] [address] Social History Tobacco Use Types Packs/Day Years [...] EDT Gender Identity Choose not to disclose 2 10:21 AM EDT Sexual Orientation Choose not to disclose 2021 10:21 AM EDT documented as of this encounter Plan of Treatment Upcoming Encounters Date Type Department Care Team (Late st Contact Info) Description 03/31/2025 1:30 PM EST Office Visit [facility] MED & PEDS [address] [place] [address] Juan Miguel Tinajero MD [address] [place] [address] 06/04/2025 10:30 AM EST Clinical Support [facility] MED & PEDS [address] [place] [address] Elsa Barnett, JENS [address] [place] [address] documented as of this encounter Goals Goal [...] documented as of this encounter Care Teams Shoe Cutter Relationship Specialty Start Date End Date Juan Miguel Tinajero MD [address] [place] [address] PCP - General Internal Medicine 05/28/18 Juan Cordova, PharmD [address] [place] [id number] Pharmacist Internal Medicine 07/14/22 Aidee Mejia 12/29/24 01/07/25 Yvonne Knox Glass BreakerOperations Architect 02/15/23 Yvonne Knox Glass BreakerOperations Architect 04/09/24 documented as of this encounter
--- OUTSIDE RECORDS SUMMARY | 2025-03-31 07:57 | XMS_ITS | Clinical Summary ---
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 F/U [...] Closed fracture of multiple ribs 10/02/2018 01/10/2022 Pain of shoulder region 08/02/201812/26 Deltoid tendinitis 05/30/2018 Type 2 diabetes mellitus 04/23/2017 03/28/202305/2023 Encounters Date Type Department Care Team Description 12/31/2024 Refill [facility] [address] [place] [address] Ranjan Price MD from Last 3 Months [...] Office Visit [facility] [address] [address] Aj Grajeda MD [address] [address] Health Maintenance Due Date Last Done Comments Colorectal Cancer Screening: Annual FOBT 2009 Colorectal Cancer Screening: Colonoscopy 2009 Colorectal Cancer Screening: Sigmoidoscopy 2009 Diabetes: Pedal Pulse Checked 03/28/2023 Diabetes: Sensory Foot Exam 03/28/2023 Diabetes: Visual Foot Exam 03/28/2023 Diabetes: Hemoglobin A1C 04/16/2025 08/2 025, 09/23/2024, 05/14/2024, Additional history exists Diabetes: Ophthalmology Exam 11/19/2025 11/19/2024 Pneumococcal Vaccine: 50+ Years Completed 07/31/2023, 12/10/2015 Pneumococcal Vaccine: Peds (0 to 5 Years) and At-Risk Patients (6 to 49 Years) Discontinued 07/31/2023, 12/10/2015 Hepatitis B Vaccine Aged Out 05/23/2024, 08/21/2022, 07/24/2022 No longer eligible based on patient's age to complete this topic Influenza Vaccine Completed 02/17/2025, , 03/13/2023, Additional history exists Procedures Procedure Name Priority Date/Time Associated Diagnosis Comments HEMOGLOBIN A1C Routine 03/21/2023 8:20 AM EDT Acute injury of kidney (HCC) Stage 3a chronic kidney disease (HCC) Cyst of kidney Nephrolithiasis Multi vessel coronary artery disease from Last 3 Months or Most Recently Relevant to Health Maintenance Results * (ABNORMAL) Hemoglobin A1c (03/21/2023 8:20 AM EDT) Hemoglobin A1C 6.6(H) (4.0-5.6) % [facility] Comment: MONITORING: In known diabetic patients, hemoglobin A1c targets should be discussed with health care provider. DIAGNOSTIC USE: The [place] Diabetes Association (ADA) and the World Health [...] Supplement 1 Testing performed or reported by [facility], a Service of [facility], [address] [place] [address] Zachary Sanders MD, Wind Turbine Engineer [facility]# [id number] Blood specimen (specimen) Venous blood / Unknown 03/21/2023 8:20 AM EDT 03/21/2023 8:25 AM EDT us Aj Grajeda MD LAB BLOOD ORDERABLES Final Re sult [facility] from Last 3 Months or Most Recently Relevant to Health Maintenance Insurance Medicaid [place] Medicaid [place] Care Teams Research Study Assistant Relationship Specialty Start Date End Date Juan Miguel Tinajero MD [address] [place] [id number] PCP - General Internal Medicine 02/11/21
--- OUTSIDE RECORDS SUMMARY | 2025-03-31 07:57 | XMS_ITS | Encounter Summary ---
Author Organization [employer] Address 75 [facility] 7 [place] [address] Care Team Providers Care Product Development Ecologist Name Role Phone Juan Miguel Tinajero MD Primary Care Provider [phone] Juan Cordova PharmD Unavailable Unavail able Aidee Mejia Unavailable Encounter Details Date Type Department Care Team ([facility] Contact Info) Description 09/26/2023 Orders Only [facility] CHC MED & PEDS [address] [place], [place] [phone] Juan Miguel Tinajero MD [address] [place] [address] Social History Tobacco Use Types Packs/Day Years [...] [facility] [address] [place] [address] Juan Miguel Tinajero MD [address] [place] [address] 06/04/2025 10:30 AM EST Clinical Support [facility] MED & PEDS [address] [place] [address] Elsa Barnett RN [address] [place] [address] documented as of this encounter Goals Goal [...] documented as of this encounter Care Teams Product Development Ecologist Relationship Specialty Start Date End Date Juan Miguel Tinajero MD [address] [place] [address] PCP - General Internal Medicine 05/28/18 Juan Cordova, EbonieD 505 [facility] [place] [address] Pharmacist Internal Medicine 07/14/22 Aidee Mejia 12/29/24 01/07/[address] MagistrateInstrument And Control Service Person 02/15/[address] MagistrateInstrument And Control Service Person 04/09/24 documented as of this encounter
--- OUTSIDE RECORDS SUMMARY | 2025-03-31 07:57 | XMS_ITS | Encounter Summary ---
Author Organization [employer] [facility] Address [address] [place] [address] 7 [place] [address] Care Team Providers Care Occupational Medicine Physician Name Role Phone Juan Miguel Tinajero MD Primary Care Provider [phone] Juan Cordova PharmD Unavailable Unavail able Aidee Mejia Unavailable Encounter Details Date Type Department Care Team (Late st Contact Info) Description 04/24/2022 Abstract [facility] ADULT DENTAL [address] [place] [address] Dental, Provider, DDS Social History Tobacco Use [...] Upcoming Encounters Date Type Department Care Team ([facility] Contact Info) Description 03/31/2025 1:30 PM EST Office Visit [facility] MED & PEDS [address] [place] [address] Juan Miguel Tinajero MD [address] [place] [address] 06/04/2025 10:30 AM EST Clinical Support [facility] MED & PEDS [address] [place] [address] Elsa Barnett, JENS [address] [place] [address] documented as of this encounter Procedures Procedure [...] on filedocumented in this encounter Care Teams Occupational Medicine Physician Relationship Specialty Start Date End Date Juan Miguel Tinajero MD [address] [place] [address] PCP - General Internal Medicine 05/28/18 Juan Cordova PharmD [address] [place] [address] Pharmacist Internal Medicine 07/14/22 Aidee Mejia 12/29/24 01/07/25 Yvonne Knox Siebel AdministratorMill Feeder 02/15/23 Yvonne Knox Siebel AdministratorMill Feeder 04/09/24 documented as of this encounter
--- OUTSIDE RECORDS SUMMARY | 2025-03-31 07:57 | XMS_ITS | Encounter Summary ---
Author Organization [employer] Address [address] [facility] 7t [place] [address] Care Team Providers Care Leaf Conditioner Name Role Phone Juan Miguel Tinajero MD Primary Care Provider [phone] Juan Cordova PharmD Unavailable Unavail able Reason for Visit * Reason Comments Med Refill Encounter Details Date Type Department Care Team ([facility] Contact Info) Description 03/28/2025 Refill [facility] CHC MED & PEDS [address] [place], [place] [phone] Juan Miguel Tinajero MD [address] [place] [address] Peripheral arterial occlusive disease; Normocytic anemia Social History Tobacco Use Types Packs/Day Years [...] Upcoming Encounters Date Type Department Care Team ([facility] st Contact Info) Description 03/31/2025 1:30 PM EST Office Visit [facility] MED & PEDS [address] [place] [address] Juan Miguel Tinajero MD [address] [place] [address] 06/04/2025 10:30 AM EST Clinical Support [facility] MED & PEDS [address] [place] [address] Elsa Barnett RN [address] [place] [address] documented as of this encounter Goals Goal Patient Goal Type Associated Problems Recent Progress Patient-Stated? Author Blood Pressure < 140/90 Blood Pressure 156/84(2024 9:10 AM EDT) No Juan Cordova, PharmD Hemoglobin A1c < 7 Result Component 7.7( 10:26 AM EDT) No Juan Cordova, PharmD documented as of this encounter Visit Diagnoses Diagnosis Peripheral arterial occlusive disease Unspecified peripheral vascular disease Normocytic anemia Unspecified anemia documented in this encounter Additional Health Concerns Assessment Noted Time PHQ-9 Depression Total Score: 0 01/15/20 25 9:12 AM EDT documented as of this encounter Care Teams Leaf Conditioner Relationship Specialty Start Date End Date Juan Miguel Tinajero MD 505 [facility] [place] [address] PCP - General Internal Medicine 05/28/18 Juan Cordova, EbonieD 505 [place] [address] Pharmacist Internal Medicine 07/14/22 Yvonne Knox Final Inspector PaperCandy Dipper Hand 02/15/23 Yvonne Knox Final Inspector PaperCandy Dipper Hand 04/09/24 documented as of this encounter
--- OUTSIDE RECORDS SUMMARY | 2025-03-31 07:57 | XMS_ITS | Encounter Summary ---
Author Organization [employer] [facility] Address [address] [facility] 7t [place] [address] Care Team Providers Care Bridal Service Sales And Management Name Role Phone Juan Miguel Tinajero MD Primary Care Provider [phone] Juan Cordova PharmD Unavailable Unavail able Aidee Mejia Unavailable Encounter Details Date Type Department Care Team (Latest Contact Info) Description 03/17/[address] [facility] CONVERSIONS Dental, Provider, DDS Social History [...] 1:30 PM EST Office Visit [facility] MED & PEDS [address] [place] [address] Juan Miguel Tinajero MD [address] [place] [address] 06/04/2025 10:30 AM EST Clinical Support [facility] MED & PEDS [address] [place] [address] Elsa Barnett, JENS [address] [place] [address] documented as of this encounter Visit Diagnoses Not on filedocumented in this encounter Care Teams Bridal Service Sales And Management Relationship Specialty Start Date End Date Beauzile, Thevenin, MD [address] [place] [address] PCP - General Internal Medicine 05/28/18 Juan Cordova, EbonieD [address] [place] [address] Pharmacist Internal Medicine 07/14/22 Aidee Mejia 12/29/24 01/07/25 Yvonne Knox Computational Sciences ProfessorBlock Placer 02/15/23 Yvonne Knox Computational Sciences ProfessorBlock Placer 04/09/24 documented as of this encounter
--- OUTSIDE RECORDS SUMMARY | 2025-03-31 07:57 | XMS_ITS | Encounter Summary ---
Author Organization [employer] Address [address] [facility] 7t [place] [address] Care Team Providers Care Surgery Nurse Name Role Phone Juan Miguel Tinajero MD Primary Care Provider [phone] Juan Cordova PharmD Unavailable Unavail able Aidee Mejia Unavailable Encounter Details Date Type Department Care Team ([facility] st Contact Info) Description 10/02/2023 Telephone [facility] MEDICINE [address] [place] [address] Juan Miguel Tinajero MD [address] [place] [address] Social History Tobacco Use Types Packs/Day Years [...] [facility] MED & PEDS [address] [place] [address] Juan Miguel Tinajero MD [address] [place] [address] 06/04/2025 10:30 AM EST Clinical Support [facility] MED & PEDS [address] [place] [address] Elsa Barnett RN [address] [place] [address] documented as of this encounter Goals Goal [...] documented as of this encounter Care Teams Surgery Nurse Relationship Specialty Start Date End Date Juan Miguel Tinajero MD [address] [place] [address] PCP - General Internal Medicine 05/28/18 Juan Cordova, PharmD [address] [place] [address] [place] [address] Pharmacist Internal Medicine 07/14/22 Aidee Mejia 12/29/24 01/07/25 Yvonne Knox Customer Service And Sales ConsultantPicker / Packer 02/15/23 Yvonne Knox Customer Service And Sales ConsultantPicker / Packer 04/09/24 documented as of this encounter
--- OUTSIDE RECORDS SUMMARY | 2025-03-31 07:57 | XMS_ITS | Encounter Summary ---
Author Organization [employer] Address [address] [place] [address] 7t [place] [address] Care Team Providers Care Optimization Specialist Name Role Phone Juan Miguel Tinajero MD Primary Care Provider [phone] Juan Cordova PharmD Unavailable Unavail able Aidee Mejia Unavailable Reason for Visit * Reason Comments Med Refill Encounter Details Date Type Department Care Team ([facility] Contact Info) Description 02/19/2023 Refill [facility] MED & PEDS [address] [place], [place] [phone] Juan Miguel Tinajero MD [address] [place] [address] Peripheral arterial occlusive disease (CMS/HCC) Social History [...] Upcoming Encounters Date Type Department Care Team ([facility] Contact Info) Description 03/31/2025 1:30 PM EST Office Visit [facility] MED & PEDS [address] [place] [address] Juan Miguel Tinajero MD [address] [place] [address] 06/04/2025 10:30 AM EST Clinical Support [facility] MED & PEDS [address] [place] [address] Elsa Barnett, JENS [address] [place] [address] documented as of this encounter Goals Goal Patient Goal Type Associated Problems Recent Progress Patient-Stated? Author Blood Pressure < 140/90 Blood Pressure 156/84(2024 9:10 AM EDT) No Juan Cordova, PharmD Hemoglobin A1c < 7 Result Component 7.7( 10:26 AM EDT) No Juan Cordova, PharmD documented as of this encounter Visit Diagnoses Diagnosis Peripheral arterial occlusive disease Unspecified peripheral vascular disease documented in this encounter Additional Health Concerns Assessment Noted Time PHQ-9 Depression Total Score: 1 01/03/20 9:06 AM EDT documented as of this encounter Care Teams Optimization Specialist Relationship Specialty Start Date End Date Juan Miguel Tinajero MD [address] [place] [address] PCP - General Internal Medicine 05/28/18 Juan Cordova, PharmD [address] [place] [address] Pharmacist Internal Medicine 07/14/22 Aidee Mejia 12/29/24 01/07/25 Yvonne Knox Log Operations CoordinatorAssociate Juvenile Court Judge 02/15/23 Yvonne Knox Log Operations CoordinatorAssociate Juvenile Court Judge 04/09/24 documented as of this encounter
--- OUTSIDE RECORDS SUMMARY | 2025-03-31 07:57 | XMS_ITS | Encounter Summary ---
Author Organization [employer] Address [address] [facility] 7 [place] [address] Care Team Providers Care Burn Out Scarfing Operator Name Role Phone Juan Miguel Tinajero MD Primary Care Provider [phone] Juan Cordova PharmD Unavailable Unavail able Aidee Mejia Unavailable Reason for Visit * Reason Comments Med Refill Encounter Details Date Type Department Care Team ([facility] st Contact Info) Description 09/21/2023 Refill [facility] CHC MED & PEDS [address] [place], [place] [phone] Juan Miguel Tinajero MD [address] [place] [address] Chronic right shoulder pain; Pain in right [...] Description 03/31/2025 1:30 PM EST Office Visit [facility] MED & PEDS [address] [place] [address] Juan Miguel Tinajero MD [address] [place] [address] 06/04/2025 10:30 AM EST Clinical Support [facility] MED & PEDS [address] [place] [address] Elsa Barnett RN [address] [place] [address] documented as of this encounter Goals Goal [...] documented as of this encounter Care Teams Burn Out Scarfing Operator Relationship Specialty Start Date End Date Juan Miguel Tinajero MD [address] [place] [address] PCP - General Internal Medicine 05/28/18 Juan Cordova, EbonieD [address] [place] [address] Pharmacist Internal Medicine 07/14/22 Aidee Mejia 12/29/24 01/07/25 Yvonne Knox Vice President PlanningTorque Tester 02/15/23 Yvonne nKox Vice President PlanningTorque Tester 04/09/24 documented as of this encounter
--- OUTSIDE RECORDS SUMMARY | 2025-03-31 07:57 | XMS_ITS | Encounter Summary ---
Author Organization [employer] Address [address] [facility] 7t [place] [address] Care Team Providers Care Recruiting Specialist Name Role Phone Juan Miguel Tinajero MD Primary Care Provider [phone] Juan Cordova PharmD Unavailable Unavail able Aidee Mejia Unavailable Reason for Visit * Reason Comments Med Refill Encounter Details Date Type Department Care Team (Late Contact Info) Description 08/19/2022 Refill [facility] CHC MED & PEDS [address] [place], [place] [phone] Juan Miguel Tinajero MD [address] [place] [address] Seasonal allergic rhinitis due to other allergic [...] Upcoming Encounters Date Type Department Care Team ([facility] Contact Info) Description 03/31/2025 1:30 PM EST Office Visit [facility] MED & PEDS [address] [place] [address] Juan Miguel Tinajero MD [address] [place] [address] 06/04/2025 10:30 AM EST Clinical Support [facility] MED & PEDS [address] [place] [address] Elsa Barnett, JENS [address] [place] [address] documented as of this encounter Goals Goal [...] documented as of this encounter Care Teams Recruiting Specialist Relationship Specialty Start Date End Date Juan Miguel Tinajero MD [address] [place] [address] PCP - General Internal Medicine 05/28/18 Juan Cordova, PharmD [address] [place] [address] Pharmacist Internal Medicine 07/14/22 Aidee Mejia 12/29/24 01/07/25 Yvonne Knox Assistant Spa DirectorFoot Orthopedist 02/15/23 Yvonne Knox Assistant Spa DirectorFoot Orthopedist 04/09/24 documented as of this encounter
== END 2025-03-31 07:55 | disposition home or self-care (01) ==
LOC: HO.US 07:54
PROVIDERS: PCP Internal Medicine; Visit Provider Surgery Vascular Surgery
DX: I73.9 Peripheral vascular disease, unspecified (principal)
CPT/HCPCS: 93922; 93925

== ENCOUNTER → 2025-03-31 07:54 | Outpatient (BNV) | payer MEDICAID, SELFPAY | PROVIDERS: PCP Internal Medicine; Visit Provider Radiology Diagnostic Radiology | DX: I73.9 Peripheral vascular disease, unspecified (principal) | CPT/HCPCS: 93922 ==

== ENCOUNTER 2025-04-30 09:13 | Outpatient (AMB) | payer MEDICAID, SELFPAY ==
--- OUTSIDE RECORDS SUMMARY | 2025-04-28 13:45 | XMS_ITS | Encounter Summary ---
Author Organization [employer] Address [address] [facility] [address] [place] [address] Care Team Providers Care Side Sawyer Name Role Phone Juan Miguel Tinajero MD Primary Care Provider [phone] Juan Cordova PharmD Unavailable Unavail able Encounter Details Date Type Department Care Team (Latest Contact Info) Description 04/28/2025 1:45 PM EST Office Visit [facility] [address] [place], [place] [phone] Juan Miguel Tinajero MD [address] [place] [address] Primary hypertension (Primary Dx); Type 2 diabetes mellitus with both eyes affected by mild nonproliferative retinopathy without macular edema, with long-term current use of insulin (HCC) Social History Tobacco Use Types Packs/Day Years [...] Sign Reading Time Taken Comments Blood Pressure 164/85 04/28/2025 1:25 PM EST Pulse 78 04/28/2025 1:25 PM EST Temperature - - Respiratory Rate 20 04/28/2025 1:25 PM EST Oxygen Saturation 98% 04/28/2025 1:25 PM EST Inhaled Oxygen Concentration - - Weight 87.5 kg (193 lb) 04/28/2025 1:25 PM EST Height 162.6 cm (5' 4 ) 04/28/2025 1:25 PM EST Body Mass Index 33.13 04/28/2025 1:25 PM EST documented in this encounter Progress Notes * Juan Miguel Tinajero MD - 04/28/2025 1:45 PM EST Osvaldo Brito is a 64 y.o. adult who presents for a follow up visit for hypertension and diabetes Type 2 and possible medication adjustment. Osvaldo Brito, age: 64 years Hypertension - Takes blood pressure medication daily using a bubble pill box - Occasional swelling of feet, especially when standing for long periods - Swelling improves with leg elevation - Occasional dizziness when rising from sitting position Diabetes Mellitus - Administers Lantus insulin daily, 35 units - Uses Mounjaro injection weekly, 5 mg - Reports eating desserts and sugary foods at night - Previously had A1c at 6, now elevated - Eats fruits and vegetables regularly Peripheral Vascular Disease - History of vascular bypass in left leg - No current symptoms related to bypass reported Misc - No current swelling of feet reported on day of visit Problem List[1] Allergies[2] Review of Systems Constitutional: Negative. Negative for activity change, appetite change and unexpected weight change. HENT: Negative. Eyes: Negative. Respiratory: Negative. Negative for chest tightness, shortness of breath, wheezing and stridor. Cardiovascular: Negative. Negative for chest pain, palpitations and leg swelling. Gastrointestinal: Negative. Negative for abdominal pain, blood in stool, constipation, diarrhea, nausea and vomiting. Endocrine: Negative. Negative for polydipsia and polyuria. Genitourinary: Negative. Negative for difficulty urinating, dyspareunia, dysuria, flank pain, frequency, genital sores, hematuria, menstrual problem, pelvic pain and urgency. Musculoskeletal: Negative. Negative for myalgias. Skin: Negative. Allergic/Immunologic: Negative. Neurological: Positive for light-headedness. Negative for dizziness, seizures, weakness, numbness and headaches. Endorses occasional lightheadedness when moving from sitting to standing position. Talked about standing in place for several seconds after getting up before walking; if lightheadedness increases, will consider moving BP med administration to bedtime. Hematological: Negative. Negative for adenopathy. Does not bruise/bleed easily. Psychiatric/Behavioral: Negative. Vitals: 04/28/25 1325 BP: (!) 164/85 BP Location: Left arm Patient Position: Sitting BP Cuff Size: Adult long Pulse: 78 Resp: 20 SpO2: 98% Weight: 193 lb (87.5 kg) Height: 5' 4 (1.626 m) No visits with results within 1 Day(s) from this visit. Latest known visit with results is: Office Visit on 03/31/2025 Component Date Value Ref Range Status Glucose Blood, POC 03/31/2025 180 60 - 200 mg/dL Final QC Media Lot # 03/31/2025 [id number] Final Lot# Expiration Date 03/31/2025 [id number] Final random Physical Exam Constitutional: Appearance: Normal appearance. Osvaldo is obese. HENT: Head: Normocephalic. Right Ear: Tympanic membrane, ear canal and external ear normal. Left Ear: Tympanic membrane, ear canal and external ear normal. Nose: Nose normal. Mouth/Throat: Mouth: Mucous membranes are moist. Pharynx: Oropharynx is clear. Eyes: Extraocular Movements: Extraocular movements intact. Pupils: Pupils are equal, round, and reactive to light. Cardiovascular: Rate and Rhythm: Normal rate and regular rhythm. Pulses: Normal pulses. Heart sounds: Normal heart sounds. No murmur heard. No gallop. Pulmonary: Effort: Pulmonary effort is normal. Breath sounds: Normal breath sounds. No stridor. No wheezing or rhonchi. Abdominal: General: Bowel sounds are normal. There is no distension. Palpations: Abdomen is soft. There is no mass. Tenderness: There is no abdominal tenderness. There is no right CVA tenderness, left CVA tendernessor guarding. Hernia: No hernia is present. Musculoskeletal: General: Normal range of motion. Cervical back: Normal range of motion and neck supple. Skin: General: Skin is warm. Capillary Refill: Capillary refill takes less than 2 seconds. Neurological: General: No focal deficit present. Mental Status: Osvaldo is alert and oriented to person, place, and time. Cranial Nerves: No cranial nerve deficit. Sensory: No sensory deficit. Motor: No weakness. Psychiatric: Mood and Affect: Mood normal. Behavior: Behavior normal. Assessment & Plan Primary hypertension Orders: amLODIPine (Norvasc) 10 MG tablet; Take 1 tablet (10 mg) by mouth Once per day. Type 2 diabetes mellitus with both eyes affected by mild nonproliferative retinopathy without macular edema, with long-term current use of insulin ([facility]) Orders: POCT Glucose POCT Hgb A1c Tirzepatide (Mounjaro) 5 MG/0.5ML solution auto-injector; Inject 7.5 mg under the skin 1 (one) timeper week. Primary hypertension: - Blood pressure remains elevated despite current antihypertensive regimen. Occasional lower extremity edema noted, likely related to amlodipine use. No current symptoms of dizziness except occasionally upon standing. - Increased amlodipine (Norvasc) dose from 7.5 mg to 10 mg daily. Advised to elevate legs if edema occurs. Option to switch dosing to nighttime discussed. Will monitor for adverse effects and consider alternative antihypertensive or addition of diuretic if needed. Follow-up scheduled in one month to reassess blood pressure and medication tolerance. Type 2 diabetes mellitus with both eyes affected by mild nonproliferative retinopathy without macular edema, with long-term current use of insulin ([facility]): - Glycemic control suboptimal with elevated hemoglobin A1c. Risk of progression of retinopathy and further renal impairment emphasized. - Increased Mounjaro (tirzepatide) dose from 5 mg to 7.5 mg weekly. Continued Lantus insulin at 35 units daily; patient has sufficient supply. Dietary counseling provided to avoid sugary foods, sodas, fruit juices, and bread; encouraged increased intake of vegetables and lean proteins, especially fish. Follow-up scheduled in one month to evaluate glycemic control and medication efficacy. Current Medications[3] No follow-ups on file. 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 I, Juan Miguel Tinajero MD , have reviewed the resident's note and agree with the assessment & plan of care as documented above. Visit Conducted in: [place]ish Translation by: Provided by [facility] staff member Kirsty , This note was drafted using Ambient (AI) technology. The patient/patient's guardian has been informed and has consented to the use of this technology: Yes [1] Patient Active Problem List Diagnosis Complains of low back pain Asthma Benign essential hypertension Hypertensive disorder Coronary arteriosclerosis Erectile dysfunction Infestation by Sarcoptes scabiei reji hominis Peripheral arterial occlusive disease Raised prostate specific antigen Type 2 diabetes mellitus (HCC) Stage 3a chronic kidney disease ([facility]/HCC) ([facility]) Major depressive disorder, recurrent, severe with psychotic features ([facility]) ([facility]) Impacted cerumen of right ear Diarrhea Long-term current use of opiate analgesic [2] No Known Allergies [3] Current Outpatient Medications: acetaminophen (Tylenol 8 Hour) 650 MG ER tablet, TAKE TWO TABLETS EVERY 8 HOURS NEEDED FOR PAIN.NO MORE THAN SIX TABLETS PER 24 HOURS, Disp: 40 tablet, Rfl: 1 Acetaminophen Extra Strength 500 MG tablet, TAKE TWO TABLETS EVERY 6 HOURS NEEDED FOR PAIN, Disp: 40 tablet, Rfl: 1 albuterol (2.5 MG/3ML) 0.083% nebulizer solution, inhale 3 milliliter by nebulization route 4 timesevery day prn as needed, Disp: , Rfl: albuterol 108 (90 Base) MCG/ACT inhaler, inhale 2 puff by inhalation route once every 4 to 6 hours as needed., Disp: , Rfl: Alcohol Swabs (Alcohol Prep) 70 % pads, USE FIVE DAILY, Disp: 100 each, Rfl: 11 amLODIPine (Norvasc) 2.5 MG tablet, Take 3 tablets (7.5 mg) by mouth Once per day., Disp: 90 tablet, Rfl: 11 Aspirin Adult Low Strength 81 MG EC tablet, TAKE ONE TABLET EVERY MORNING, Disp: 90 tablet, Rfl: 1 atorvastatin (Lipitor) 80 MG tablet, TAKE ONE TABLET EVERY NIGHT AT BEDTIME, Disp: 90 tablet, Rfl: 1 Bisacodyl EC 5 MG EC tablet, TAKE TWO TABLETS EVERY DAY AT BEDTIME, Disp: , Rfl: carvedilol (Coreg) 12.5 MG tablet, TAKE ONE TABLET TWICE DAILY IN THE MORNING AND AT BEDTIME WITH FOOD, Disp: , Rfl: cetirizine (ZyrTEC) 10 MG tablet, Take 1 tablet (10 mg) by mouth Once per day., Disp: 30 tablet, Rfl: 11 cholecalciferol (Vitamin D-3) 50 MCG (2000 UT) capsule, Take 2,000 Units by mouth in the morning., Disp: , Rfl: cilostazol (Pletal) 100 MG tablet, TAKE ONE TABLET TWICE DAILY IN THE MORNING AND AT BEDTIME 30 MINUTES BEFORE MEALS, Disp: 60 tablet, Rfl: 1 Continuous Blood Gluc Machinery Mover (FreeStyle Michael 2 [place]) device, Use to check blood sugar as directed, Disp: 1 each, Rfl: 0 Continuous Blood Gluc Sensor (FreeStyle Michael 2 Sensor) misc, USE TO TEST BLOOD SUGAR CHANGE AFTER TWO WEEKS, THREE TIMES DAILY, Disp: 2 each, Rfl: 11 Diclofenac Sodium 1 % gel, APPLY 2 GRAM'S TO AFFECTED AREA(s) FOUR TIMES DAILY NEEDED, Disp: 100g, Rfl: 1 docusate sodium (Colace) 100 MG capsule, Take 1 capsule by mouth in the morning., Disp: , Rfl: Easy Touch Lancets 33G/Twist mis, TEST BLOOD SUGAR FIVE TIMES DAILY, Disp: 200 each, Rfl: 11 famotidine (Pepcid) 20 MG tablet, Take 1 tablet by mouth at bedtime., Disp: , Rfl: Ferrous Sulfate (iron) 325 (65 Fe) MG tablet, TAKE ONE TABLET EVERY MORNING. DO NOT BREAK, CRUSH, DISSOLVE OR CHEW, Disp: 90 tablet, Rfl: 0 fexofenadine (Misty) 180 MG tablet, Take 1 tablet by mouth. Every day, Disp: , Rfl: fluticasone (Flonase) 50 MCG/ACT nasal spray, INHALE 1 - 2 SPRAYS IN EACH NOSTRIL ONCE DAILY NEEDED, Disp: 48 g, Rfl: 0 FREESTYLE LITE test strip, TEST BLOOD SUGAR FIVE TIMES DAILY, Disp: 150 strip, Rfl: 5 FT Earwax Removal 6.5 % otic solution, PLACE 5 TO 10 DROPS IN AFFECTED EAR(S) TWICE DAILY FOR FOUR DAYS, Disp: 15 mL, Rfl: 1 gabapentin (Neurontin) 300 MG capsule, TAKE ONE CAPSULE EVERY MORNING and TAKE TWO CAPSULES EVERY DAY AT BEDTIME, Disp: 90 capsule, Rfl: 5 glucose 4 g chewable tablet, Chew 4 tablets (16 g) if needed for low blood sugar., Disp: 50 tablet,Rfl: 11 insulin glargine (Lantus SoloStar) 100 UNIT/ML pen, INJECT 35 UNITS SUBCUTANEOUSLY DAILY, Disp: 15 mL, Rfl: 3 lidocaine (Lidoderm) 5 % patch, APPLY 1 PATCH TO SKIN. LEAVE ON FOR 12 HOURS, THEN OFF FOR 12 HOURSAS DIRECTED., Disp: 30 patch, Rfl: 3 Mounjaro 5 MG/0.5ML solution auto-injector, INJECT ONE PEN (=5MG) SUBCUTANEOUSLY ONCE A WEEK DIRECTED, Disp: 2 mL, Rfl: 2 naloxone (Narcan) 4 mg/0.1 mL nasal spray, Administer 0.1 mL into affected nostril(s)., Disp: , Rfl: Nebulizers (Compressor/Nebulizer) misc, Inhale every 4 (four) hours., Disp: , Rfl: pantoprazole (ProtoNix) 20 MG EC tablet, Take 1 tablet by mouth before breakfast and before eveningmeal., Disp: , Rfl: polyethylene glycol, PEG, 3350 (Glycolax) 17 GM/SCOOP powder, STIR 17GM INTO 8 OUNCES OF WATER, OR JUICE, AND DRINK DAILY NEEDED / DIRECTED, Disp: , Rfl: risperiDONE (RisperDAL) 3 MG tablet, TAKE 1 TABLET BY MOUTH AT BEDTIME, Disp: 90 tablet, Rfl: 0 sennosides (Senokot) 8.6 MG tablet, 1 tablet. As needed for constipation, Disp: , Rfl: tadalafil (Cialis) 5 MG tablet, TOME ANNETTE TABLETA VIA ORAL CADA FELIPE, Disp: , Rfl: TechLite Pen [place] 32G X 4 MM misc, USE FIVE DAILY, Disp: 100 each, Rfl: 11 traMADol (Ultram) 50 MG tablet, TAKE ONE TABLET EVERY 8 HOURS NEEDED FOR SEVERE PAIN, Disp: 84 tablet, Rfl: 0 triamcinolone (Kenalog) 0.1 % cream, APPLY TO THE AFFECTED AREA(S) TWICE DAILY TWICE DAILY IN THE MORNING AND AT BEDTIME, Disp: 30 g, Rfl: 1 triamcinolone (Kenalog) 0.1 % cream, Apply topically if needed in the morning and at bedtime (pain and swelling)., Disp: 80 g, Rfl: 2 documented in this encounter Miscellaneous Notes * Assessment & Plan Note - Juan Miguel Tinajero MD - 04/28/2025 1:45 PM EST Associated Problem(s): Hypertensive disorder Orders: amLODIPine (Norvasc) 10 MG tablet; Take 1 tablet (10 mg) by mouth Once per day. * Assessment & Plan Note - Juan Miguel Tinajero MD - 04/28/2025 1:45 PM EST Associated Problem(s): Type 2 diabetes mellitus (HCC) Orders: POCT Glucose POCT Hgb A1c Tirzepatide (Mounjaro) 5 MG/0.5ML solution auto-injector; Inject 7.5 mg under the skin 1 (one) timeper week. * Addendum Note - AL Sweeney - 04/28/2025 1:45 PM ESTAddended by: JEFERSON VILLA on: 04/28/2025 04:55 PM Modules accepted: Orders documented in this encounter Plan of Treatment Upcoming Encounters Date Type Department Care Team (Late st Contact Info) Description 06/04/2025 10:30 AM EST Clinical Support [facility] [address] [place] [address] Elsa Barnett RN [address] [place] [address] 06/04/2025 1:45 PM EST Office Visit [facility] [address] [place] [address] Juan Miguel Tinajero MD [address] [place] [address] documented as of this encounter Goals Goal Patient Goal Type Associated Problems Recent Progress Patient-Stated? Author Blood Pressure < 140/90 Blood Pressure 164/85(2024 1:25 PM EST) No Juan Cordova, PharmD Hemoglobin A1c < 7 Result Component 9.6( 2:33 PM EST) No Juan Cordova, PharmD Help patients manage their type 2 diabetes Care Plan Help patients manage their type 2 diabetes No Elsa Barnett, JENS Weekly blood pressure task Care Plan Weekly blood pressure task No Elsa Barnett RN Help patients manage their type 2 diabetes Care Plan Help patients manage their type 2 diabetes No Elsa Barnett, JENS Patient has chronic kidney disease Care Plan Patient has chronic kidney disease No Elsa Barnett RN Weekly blood pressure task Care Plan Weekly blood pressure task No Elsa Barnett RN Patient has chronic kidney disease Care Plan Patient has chronic kidney disease No Elsa Barnett RN Weekly blood pressure task Care Plan Weekly blood pressure task No Kristen Quinn Weekly blood pressure task Care Plan Weekly blood pressure task No Kristen Quinn Patient has chronic kidney disease Care Plan Patient has chronic kidney disease No Kristen Quinn Patient has chronic kidney disease Care Plan Patient has chronic kidney disease No Kristen Quinn Weekly blood pressure task Care Plan Weekly blood pressure task No Kirsty Duval [place] Weekly blood pressure task Care Plan Weekly blood pressure task No Kirsty Duval [place] Patient has chronic kidney disease Care Plan Patient has chronic kidney disease No Kirsty Duval [place] Patient has chronic kidney disease Care Plan Patient has chronic kidney disease No Kirsty Duval [place] Patient has diabetic eye disease Care Plan Patient has diabetic eye disease No Jeferson Villa FNP Patient has diabetic eye disease Care Plan Patient has diabetic eye disease No Jeferson Villa FNP Weekly blood pressure task Care Plan Weekly blood pressure task No Nicole Lugo RN Weekly blood pressure task Care Plan Weekly blood pressure task No Nicole Lugo RN Patient has chronic kidney disease Care Plan Patient has chronic kidney disease No Nicole Lugo RN Patient has chronic kidney disease Care Plan Patient has chronic kidney disease No Nicole Lugo RN documented as of this encounter Procedures Procedure Name Priority Date/Time Associated Diagnosis Comments POCT GLYCATED HEMOGLOBIN, TOTAL Routine 04/28/2025 2:33 PM EST Type 2 diabetes mellitus with both eyes affected by mild nonproliferative retinopathy without macular edema, with long-term current use of insulin (HCC) POCT GLUCOSE Routine 04/28/2025 2:33 PM EST Type 2 diabetes mellitus with both eyes affected by mild nonproliferative retinopathy without macular edema, with long-term current use of insulin (HCC) documented in this encounter Results * (ABNORMAL) POCT Hgb A1c (04/28/2025 2:33 PM EST) Hemoglobin A1C 9.6(A) 4.0 - 5.7 % QC Media Lot # [id number] Lot# Expiration Date Blood 04/28/2025 2:33 PM EST Jeferson Villa [facility] POINT OF CARE TEST ENTER/EDIT ORDERABLES Final Result * POCT Glucose (04/28/2025 2:33 PM EST) Glucose Blood, POC 161 60 - 200 mg/dL QC Media Lot # [id number] Lot# Expiration Date [id number] Comment:random Blood Capillary blood specimen / Unknown 04/28/2025 2:33 PM EST Jeferson Villa [facility] POINT OF CARE TEST ENTER/EDIT ORDERABLES Final Result documented in this encounter Visit Diagnoses Diagnosis Primary hypertension- Primary Unspecified essential hypertension Type 2 diabetes mellitus with both eyes affected by mild nonproliferative retinopathy without macular edema, with long-term current use of insulin (HCC) documented in this encounter Additional Health Concerns Active Problems Noted Date Diagnosed Date Help patients manage their type 2 diabetes 04/13 Weekly blood pressure task 04/13/2025 Help patients manage their type 2 diabetes 04/13 Patient has chronic kidney disease 04/13/2025 Weekly blood pressure task 04/13/2025 Patient has chronic kidney disease 04/13/2025 Weekly blood pressure task 04/16/2025 Weekly blood pressure task 04/16/2025 Patient has chronic kidney disease 04/16/2025 Patient has chronic kidney disease 04/16/2025 Weekly blood pressure task 04/28/2025 Weekly blood pressure task 04/28/2025 Patient has chronic kidney disease 04/28/2025 Patient has chronic kidney disease 04/28/2025 Patient has diabetic eye disease 04/28/2025 Patient has diabetic eye disease 04/28/2025 Weekly blood pressure task 04/28/2025 Weekly blood pressure task 04/28/2025 Patient has chronic kidney disease 04/28/2025 Patient has chronic kidney disease 04/28/2025 Assessment Noted Time PHQ-9 Depression Total Score: 0 01/15/20 25 9:12 AM EDT documented as of this encounter Care Teams Side Sawyer Relationship Specialty Start Date End Date Juan Miguel Tinajero MD [address] [place] [id number] PCP - General Internal Medicine 05/28/18 Juan Cordova, PharmD [address] [place] [address] DAKOTA Garcia [id number] Pharmacist Internal Medicine 07/14/22 Yvonne Knox Child Protection SpecialistInspector Quality Assurance 02/15/23 Yvonne Knox Child Protection SpecialistInspector Quality Assurance 04/09/24 documented as of this encounter
--- NOTE | 2025-04-30 09:29 | MHC.OFFVIS ---
Intake Visit Reasons: 3m/PVR SET / UA Intake Note: Patient is present for 3 mo follow up Urology Medication:Finasteride , Tamsulosin Antibiotic Allergy:NONE Blood Thinner:ASPIRIN Imaging MRI 01/02/2025 PVR 185 MLs Hoisting Engine Operator Required: Yes Accompanied by: Self / Same As Patient Allergies No Known Allergies Allergy (Verified 04/30/25 09:30) HPI Comments Details: Osvaldo is a pleasant [place]-speaking male. He is a patient of Dr. Tinajero. 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 Underwent penile prosthetic placement Postoperative course derailed by bladder infection Ravi catheter placed with urinary retention Significant penile edema which resulted in persistent pain Prosthetic removed. Culture did not show infection PSAs: 01/15 0.2, 07/19 0.2, 07/20 0.2, 09/18 0.2 Testosterone: 06/20 395 Free testosterone: 06/20 53.3 A1c: 12/15 9.7%, 06/20 5.6 PFSH Medical History Arthritis Asthma Peripheral arterial occlusive disease Hyperlipidemia IBS (irritable bowel syndrome) Benign prostatic hyperplasia without lower urinary tract symptoms GERD (gastroesophageal reflux disease) Chronic kidney disease Acute kidney failure Abdominal bloating Painful arc syndrome of right shoulder Chronic idiopathic constipation Tubular adenoma Myocardial infarct, old Diabetes PVD (peripheral vascular disease) CAD (coronary artery disease) Family history of prostate cancer Scrotal swelling Elevated PSA Surgical History Hx of aorto-femoral bypass History of coronary artery stent placement Hx of coronary angioplasty Hx of ligation of vein History of esophagogastroduodenoscopy (EGD) Hx of colonoscopy Hx of arthroscopic knee surgery History of surgery History of vascular surgery History of cardiac cath Family History Maternal Grandmother Diabetes Paternal Grandmother Diabetes Brother Diabetes Mother No problems noted. Father Diabetes Social History Household Members: Family Housing: Apartment Do you presently have visiting nurse or other home services: No Alcohol intake: never Comment: camera Patient Tobacco Use Status: Former Tobacco user Tobacco use type: Cigarette Years Smoked: 35+ service: No Current occupational status: disabled Current occupation: right hand dominant Review of Systems Const Denies chills and Denies fever(s) Card Reports no additional complaints and Denies syncope Resp Denies cough GI Denies abdominal pain and Denies heartburn Reports as per HPI and Denies change in libido Neuro Denies syncope Psych Denies change in libido Endo Denies change in libido Physical Exam Const General: cooperative, healthy appearing, comfortable and no acute distress Orientation/consciousness: patient oriented x3 HEENT Face and sinus: Yes normal facial exam Mouth: moist mucous membranes Neck Neck: Yes normal visual inspection, Yes full ROM and Yes trachea midline Chest Chest palpation & inspection: normal inspection of the chest Resp Effort & Inspection: normal respiratory effort, able to speak in complete sentences and no respiratory distress GI Inspection: Yes normal to inspection Back/Spine/Pelvis Cervical Spine: normal cervical lordosis Thoracic/Lumbar Spine: thoracic and lumbar spine normal to inspection Skin General skin exam: no rashes or lesions noted Neuro General: patient oriented x3, gait normal, tone normal and moves all extremities Extrem General: Yes normal to inspection and Yes capillary refill normal Office Procedures Post Void Residual Post Residual Void Post Void Residual (PVR): 185 [id number] Void Residual by ultrasound Results AMB Urinalysis, Automated UA Leukoctes 0 Maureen/uL Last Edit by OLEG Lopez on 04/30/25 10:01 UA Nitrite Negative Last Edit by OLEG Lopez on 04/30/25 10:01 UA Urobilinogen 0.2 mg/dL Last Edit by OLEG Lopez on 04/30/25 10:01 UA Protein 300 mg/dL Last Edit by OLEG Lopez on 04/30/25 10:01 UA pH 6.5 Last Edit by OLEG Lopez on 04/30/25 10:01 UA Blood 0 Dhiraj/uL Last Edit by Meg Jerrod, [facility] on 04/30/25 10:01 UA Specific [place] 1.015 Last Edit by Meg Jerrod, [facility] on 04/30/25 10:01 UA Ketone Negative Last Edit by Meg Jerrod, [facility] on 04/30/25 10:01 UA Bilirubin 0 mg/dL Last Edit by Meg Jerrod, [facility] on 04/30/25 10:01 UA Glucose 0 mg/dL Last Edit by Megандрей Elder, [facility] on 04/30/25 10:01 Results Reviewed Results Reviewed: Laboratory Last Values Urine pH (Auto) 6.5 04/30/25 10:00 Specific [place] (Auto) 1.015 04/30/25 10:00 Urine Protein (Auto) 300 mg/dL 04/30/25 10:00 Glucose (UA)(Auto) 0 mg/dL 04/30/25 10:00 Urine Ketones (Auto) Negative 04/30/25 10:00 Urine Blood (Auto) 0 Dhiraj/uL 04/30/25 10:00 Urine Nitrite (Auto) Negative 04/30/25 10:00 Urine Bilirubin (Auto) 0 mg/dL 04/30/25 10:00 Urine Urobilinogen (Auto) 0.2 mg/dL 04/30/25 10:00 Leukocyte Esterase (Auto) 0 Maureen/uL 04/30/25 10:00 Assessment & Plan Assessment & Plan (1) Bladder outlet obstruction: Code(s): N32.0 - Bladder-neck obstruction Category: Medical Plan Continue tamsulosin May stop finasteride Orders: Orders AMB Urinalysis Automated Today N13.8 - Other obstructive and reflux uropathy, N40.1 - Benign prostatic hyperplasia with lower urinary tract symptoms AMB Post Void Residual by ultrasound Today N40.1 - Benign prostatic hyperplasia with lower urinary tract symptoms Medications: Discontinued finasteride Discontinued Reason: Patient Completed Course 5 mg PO DAILY 90 days 90 tabs 1RF N99.89 - Other postprocedural complications and disorders of genitourinary system, R33.8 - Other retention of urine Patient Instructions: This note is constructed using voice recognition software. While every effort has been made to ensure accuracy commissions manager errors may have been included. Imaging studies, laboratory and physical exam results were discussed and reviewed in detail. No major barriers to patient understanding were identified. An opportunity to ask questions regarding the treatment plan was provided. All questions were answered. The patient expressed understanding and agreement with the above treatment plan. The patient is aware they should contact our office by phone for worsening of their current condition or the appearance of new urologic symptoms. Compliance is encouraged with any medications and followup testing that is ordered. It is a privilege to participate in the urologic care of your patient. If you have any questions or concerns regarding treatment for the above conditions, or other urologic issues, please do not hesitate to contact me. The office telephone contact is [phone]. Sincerely, Dr Sachin Oswald MD, [facility] - Urology Compassionate Specialist Care for the Genitourinary System Coding Level of Care Code Est Pt Level 3 (00785) Complex visit Add On G2211 Diagnoses Bladder outlet obstruction N32.0 CPT Codes Post Residual Void - PVR CPT Code: 94924-Soki Void Residual by ultrasound ([id number])
--- OUTSIDE RECORDS SUMMARY | 2025-04-30 10:10 | XMS_ITS | Encounter Summary ---
Author Organization [employer] Address [address] [facility] 7t [place] [address] Care Team Providers Care Legal Support Manager Name Role Phone Juan Miguel Tinajero MD Primary Care Provider [phone] Juan Cordova PharmD Unavailable Unavail able Aidee Mejia Unavailable Reason for Visit * Reason Comments Med Refill Encounter Details Date Type Department Care Team ([facility] st Contact Info) Description 10/31/2023 Refill [facility] CHC MED & PEDS [address] [place], [place] [phone] Juan Miguel Tinajero MD [address] [place] [address] Chronic right shoulder pain; Pain in right [...] Description 06/04/2025 10:30 AM EST Clinical Support [facility] MED & PEDS [address] [place] [address] Elsa Barnett RN [address] [place] [address] 06/04/2025 1:45 PM EST Office Visit [facility] MED & PEDS [address] [place] [address] Juan Miguel Tinajero MD [address] [place] [address] documented as of this encounter Goals Goal Patient Goal Type Associated Problems Recent Progress Patient-Stated? Author Blood Pressure < 140/90 Blood Pressure 164/85(2024 1:25 PM EST) No Juan Cordova, PharmD Hemoglobin A1c < 7 Result Component 9.6( 2:33 PM EST) No Juan Cordova, PharmD documented as [...] documented as of this encounter Care Teams Legal Support Manager Relationship Specialty Start Date End Date Juan Miguel Tinajero MD [address] [place] [address] PCP - General Internal Medicine 05/28/18 Juan Cordova PharmD [address] [place] [address] Pharmacist Internal Medicine 07/14/22 Aidee Mejia 12/29/24 01/07/25 Yvonne Knox Project Financial AnalystManager Process Improvement 02/15/23 Yvonne Knox Project Financial AnalystManager Process Improvement 04/09/24 documented as of this encounter
--- OUTSIDE RECORDS SUMMARY | 2025-04-30 10:10 | XMS_ITS | Encounter Summary ---
Author Organization [employer] Address [address] [facility] 7t [place] [address] Care Team Providers Care Filtrose Crusher Name Role Phone Juan Miguel Tinajero MD Primary Care Provider [phone] Juan Cordova PharmD Unavailable Unavail able Aidee Mejia Unavailable Reason for Visit * Reason Comments Med Refill Encounter Details Date Type Department Care Team ([facility] Contact Info) Description 12/27/2024 Refill [facility] CHC MED & PEDS [address] [place], [place] [phone] Juan Miguel Tinajero MD [address] [place] [address] Complains of low back pain Social History [...] Description 06/04/2025 10:30 AM EST Clinical Support [facility] MED & PEDS [address] [place] [address] Elsa Barnett RN [address] [place] [address] 06/04/2025 1:45 PM EST Office Visit [facility] MED & PEDS [address] [place] [address] Juan Miguel Tinajero MD [address] [place] [address] documented as of this encounter Goals Goal [...] documented as of this encounter Care Teams Filtrose Crusher Relationship Specialty Start Date End Date Juan Miguel Tinajero MD [address] [place] [address] PCP - General Internal Medicine 05/28/18 Juan Cordova PharmD [address] [place] [address] Pharmacist Internal Medicine 07/14/22 Aidee Mejia 12/29/24 01/07/25 Yvonne Knox Health Assessment And Treatment TeacherConsultant In Ergonomics And Safety 02/15/23 Yvonne Knox Health Assessment And Treatment TeacherConsultant In Ergonomics And Safety 04/09/24 documented as of this encounter
--- OUTSIDE RECORDS SUMMARY | 2025-04-30 10:10 | XMS_ITS | Encounter Summary ---
Author Organization [employer] Address [address] [facility] 7t [place] [address] Care Team Providers Care Shelter Case Manager Name Role Phone Juan Miguel Tinajero MD Primary Care Provider [phone] Juan Cordova PharmD Unavailable Unavail able Aidee Mejia Unavailable Reason for Visit * Reason Comments Med Refill Encounter Details Date Type Department [facility] Description 12/07/[address] [facility] CHC MED & PEDS [address] [place], [place] [phone] Juan Miguel Tinajero MD [address] [place] [address] Chronic pain syndrome; Sore throat; Bacterial conjunctivitis [...] Description 06/04/2025 10:30 AM EST Clinical Support [facility] MED & PEDS [address] [place] [address] Elsa Barnett RN [address] [place] [address] 06/04/2025 1:45 PM EST Office Visit [facility] MED & PEDS [address] [place] [address] Juan Miguel Tinajero MD [address] [place] [address] documented as of this encounter Goals Goal Patient Goal Type Associated Problems Recent Progress Patient-Stated? Author Blood Pressure < 140/90 Blood Pressure 164/85(2024 1:25 PM EST) No DelJuan delgado, PharmD Hemoglobin A1c < 7 Result Component 9.6( 2:33 PM EST) No DelJuan delgado, PharmD documented as of this encounter Visit Diagnoses Diagnosis Chronic pain syndrome Sore throat Acute pharyngitis Bacterial conjunctivitis Other mucopurulent conjunctivitis documented in this encounter Additional Health Concerns Assessment Noted Time PHQ-9 Depression Total Score: 0 10/30/19 10:10 AM EDT documented as of this encounter Care Teams Shelter Case Manager Relationship Specialty Start Date End Date Juan Miguel Tinajero MD [address] [place] [address] PCP - General Internal Medicine 05/28/18 Juan Cordova PharmD [address] [place] [address] Pharmacist Internal Medicine 07/14/22 Aidee Mejia 12/29/24 01/07/25 Yvonne Knox Supervisor Line DepartmentExternal Relations Manager 02/15/23 Yvonne Knox Supervisor Line DepartmentExternal Relations Manager 04/09/24 documented as of this encounter
--- OUTSIDE RECORDS SUMMARY | 2025-04-30 10:10 | XMS_ITS | Encounter Summary ---
Author Organization [employer] Address [address] [facility] 7t [place] [address] Care Team Providers Care Hydrologic Engineer Name Role Phone Juan Miguel Tinajero MD Primary Care Provider [phone] Juan Cordova PharmD Unavailable Unavail able Aidee Mejia Unavailable Reason for Visit * Reason Onset Date Comments Pre-op Visit 01/07/2024 Encounter Details Date Type Department Care Team ([facility] st Contact Info) Description 01/07/2024 Telephone [facility] MEDICINE [address] [place] [address] Juan Miguel Tinajero MD [address] [place] [address] Pre-op Visit Social History Tobacco Use Types [...] PM EDT Outgoing call to [place] at [facility] calling to inform pt agreed to come in on 01/18/24 at 10AM with [place] for pre op appointment. Appointment reminder letter mailed * Telephone Encounter - Tsering Pastrana - 01/07/2024 10:20 AM EDT Date of Surgery: 01/29 Surgical procedure being done: Right shoulder arthroscopy with possible RTC Type of anesthesia: General with nerve block Lab needed: Yes EKG: Yes Surgeon's name: lawanda teetee Facility name: [facility] Surgeon's office number: [phone] Surgeon's office fax number: [phone] Contact name: [place] Last office note from surgeon requested: Yes documented in this encounter Plan of Treatment Upcoming Encounters Date Type Department Care Team ([facility] st Contact Info) Description 06/04/2025 10:30 AM EST Clinical Support [facility] MED & PEDS [address] [place] [address] Elsa Barnett, RN [address] [place] [address] 06/04/2025 1:45 PM EST Office Visit [facility] CHC MED & PEDS [address] [place] [address] Juan Miguel Tinajero MD [address] [place] [address] documented as of this encounter Goals Goal Patient Goal Type Associated Problems Recent Progress Patient-Stated? Author Blood Pressure < 140/90 Blood Pressure 164/85(2024 1:25 PM EST) No Juan Cordova, PharmConstantin Hemoglobin A1c < 7 Result Component 9.6( 2:33 PM EST) No Juan Cordova, PharmD documented as of this encounter Visit Diagnoses Not on filedocumented in this encounter Additional Health Concerns Assessment Noted Time PHQ-9 Depression Total Score: 0 10/30/19 24 10:10 AM EDT documented as of this encounter Care Teams Hydrologic Engineer Relationship Specialty Start Date End Date Juan Miguel Tinajero MD [address] [place] [address] PCP - General Internal Medicine 05/28/18 Juan Cordova, PharmD [address] [place] [address] Pharmacist Internal Medicine 07/14/22 Aidee Mejia 12/29/24 01/07/25 Yvonne Knox Records SupervisorDonor Center Technician 02/15/23 Yvonne Knox Records SupervisorDonor Center Technician 04/09/24 documented as of this encounter
--- OUTSIDE RECORDS SUMMARY | 2025-04-30 10:10 | XMS_ITS | Encounter Summary ---
Author Organization [employer] Address [address] [facility] 7t [place] [address] Care Team Providers Care Working Second Hand Name Role Phone Juan Miguel Tinajero MD Primary Care Provider [phone] Juan Cordova PharmD Unavailable Unavail able Encounter Details Date Type Department Care Team ([facility] st Contact Info) Description 02/09/2025 Orders Only [facility] CHC MED & PEDS [address] [place], [place] [phone] Juan Miguel Tinajero MD [address] [place] [address] Normocytic anemia (Primary Dx); Benign essential hypertension [...] Description 06/04/2025 10:30 AM EST Clinical Support [facility] MED & PEDS [address] [place] [address] Elsa Barnett RN [address] [place] [address] 06/04/2025 1:45 PM EST Office Visit [facility] MED & PEDS [address] [place] [address] Juan Miguel Tinajero MD [address] [place] [address] Scheduled Orders Name Type Priority Associated Diagnoses [...] documented as of this encounter Care Teams Working Second Hand Relationship Specialty Start Date End Date Juan Miguel Tinajero MD [address] [place] [address] PCP - General Internal Medicine 05/28/18 Juan Cordoav, EbonieD [address] [place] [address] Pharmacist Internal Medicine 07/14/22 Yvonne Knox Extermination SupervisorRailroad Track Repair Supervisor 02/15/23 Yvonne Knox Extermination SupervisorRailroad Track Repair Supervisor 04/09/24 documented as of this encounter
--- OUTSIDE RECORDS SUMMARY | 2025-04-30 10:10 | XMS_ITS | Encounter Summary ---
Author Organization [employer] Address [address] [place] [address] 7t [place] [address] Care Team Providers Care Soaping Machine Back Tender Name Role Phone Juan Miguel Tinajero MD Primary Care Provider [phone] Juan Cordova PharmD Unavailable Unavail able Aidee Mejia Unavailable Reason for Visit * Reason Comments Med Refill Encounter Details Date Type Department Care Team ([facility] Contact Info) Description 02/19/2023 Refill [facility] MED & PEDS [address] [place], [place] [phone] Juan Miguel Tinajero MD [address] [place] [address] Peripheral arterial occlusive disease (CMS/HCC) Social History [...] Upcoming Encounters Date Type Department Care Team ([facility] Contact Info) Description 06/04/2025 10:30 AM EST Clinical Support [facility] MED & PEDS [address] [place] [address] Elsa Barnett, JENS [address] [place] [address] 06/04/2025 1:45 PM EST Office Visit [facility] CHC MED & PEDS [address] [place] [address] Juan Miguel Tinajero MD [address] [place] [address] documented as of this encounter Goals Goal [...] documented as of this encounter Care Teams Soaping Machine Back Tender Relationship Specialty Start Date End Date Juan Miguel Tinajero MD [address] [place] [address] PCP - General Internal Medicine 05/28/18 Juan Cordova, PharmD [address] [place] [address] Pharmacist Internal Medicine 07/14/22 Aidee Mejia 12/29/24 01/07/25 Yvonne Knox Cut PressmanState Trooper 02/15/23 Yvonne Knox Cut PressmanState Trooper 04/09/24 documented as of this encounter
--- OUTSIDE RECORDS SUMMARY | 2025-04-30 10:10 | XMS_ITS | Encounter Summary ---
Author Organization [employer] Address [address] [facility] [address]t [place] [address] Care Team Providers Care Engineer Intern Name Role Phone Juan Miguel Tinajero MD Primary Care Provider [phone] Juan Cordova PharmD Unavailable Unavail able Aidee Mejia Unavailable Encounter Details Date Type Department Care Team (Late st Contact Info) Description 12/03/2023 Orders Only [facility] CHC MED & PEDS [address] [place], [place] [phone] Juan Miguel Tinaejro MD [address] [place] [address] Type 2 diabetes mellitus with both eyes affected by mild nonproliferative retinopathy without macular edema, with long-term current use of insulin ([facility]) (Primary [...] Description 06/04/2025 10:30 AM EST Clinical Support [facility] MED & PEDS [address] [place] [address] Elsa Barnett RN [address] [place] [address] 06/04/2025 1:45 PM EST Office Visit [facility] MED & PEDS [address] [place] [address] Juan Miguel Tinajero MD [address] [place] [address] documented as of this encounter Goals Goal [...] documented as of this encounter Care Teams Engineer Intern Relationship Specialty Start Date End Date Juan Miguel Tinajero MD [address] [place] [address] PCP - General Internal Medicine 05/28/18 Juan Cordova PharmD [address] [place] [address] Pharmacist Internal Medicine 07/14/22 Aidee Mejia 12/29/24 01/07/25 Yvonne Knox Buffer NickelSummer Law Associate 02/15/23 Yvonne Knox Buffer NickelSummer Law Associate 04/09/24 documented as of this encounter
--- OUTSIDE RECORDS SUMMARY | 2025-04-30 10:10 | XMS_ITS | Clinical Summary ---
Author Organization [employer] Address [address] [place] [address] Care Team Providers Care Shadowgraph Operator Name Role Phone Juan Miguel Tinajero MD Primary Care Provider [phone] Juan Cordova PharmD Unavailable Unavail able Allergies [...] / DIRECTED 023 Active Continuous Blood Gluc Pay Station Department Manager (FreeStyle Michael [address] [place]) deviceIndications: Type 2 diabetes mellitus with other circulatory complication, with long-term current use of insulin ([facility]) Use to check blood sugar as directed 1 each 023 Active glucose 4 g chewable tabletIndications: Type 2 diabetes mellitus with other circulatory complication, with long-term current use of insulin ([facility]) Chew 4 tablets (16 g) if needed [...] complication, with long-term current use of insulin ([facility]) USE TO TEST BLOOD SUGAR CHANGE AFTER TWO WEEKS, THREE TIMES DAILY 2 each 023 Active Alcohol Swabs (Alcohol Prep) 70 % padsIndications:Ty pe 2 diabetes mellitus with diabetic peripheral angiopathy without gangrene, with long-term current use of insulin ([facility]) USE FIVE DAILY 100 each 11 024 [...] complication, with long-term current use of insulin ([facility]) TEST BLOOD SUGAR FIVE TIMES DAILY 200 each 025 Active insulin glargine (Lantus SoloStar) 100 UNIT/ML penIndications:Typ e 2 diabetes mellitus with other circulatory complication, with long-term current use of insulin ([facility]) INJECT 35 UNITS SUBCUTANEOUSLY DAILY 15 mL 3 025 Active FREESTYLE LITE test stripIndications:T ype 2 diabetes mellitus with diabetic peripheral angiopathy without gangrene, with long-term current use of insulin ([facility]) TEST BLOOD SUGAR FIVE TIMES DAILY 150 strip 5 025 Active Aspirin Adult Low Strength 81 MG EC tabletIndications: Benign essential hypertension TAKE ONE TABLET EVERY MORNING 90 tablet 1 025 Active triamcinolone (Kenalog) 0.1 % creamIndications:D yshydrosis APPLY TO THE AFFECTED AREA(S) TWICE DAILY TWICE DAILY IN THE MORNING AND AT BEDTIME 30 g 025 Active Bisacodyl EC 5 MG EC tablet TAKE TWO TABLETS EVERY DAY AT BEDTIME Active carvedilol (Coreg) 12.5 MG tablet TAKE ONE TABLET TWICE DAILY IN THE MORNING AND AT BEDTIME WITH FOOD 025 Active gabapentin (Neurontin) 300 MG capsuleIndications :Complains of low back pain TAKE ONE CAPSULE EVERY MORNING and TAKE TWO CAPSULES EVERY DAY AT BEDTIME 90 capsule 025 Active triamcinolone (Kenalog) 0.1 % creamIndications:S kin rash Apply topically if needed in the morning and at bedtime (pain and swelling). 80 g 025 Active cetirizine (ZyrTEC) 10 MG tabletIndications: Skin rash Take 1 tablet (10 mg) by mouth Once per day. 30 tablet 025 01/14 Active atorvastatin (Lipitor) 80 MG tablet TAKE ONE TABLET EVERY NIGHT AT BEDTIME 90 tablet 025 Active TechLite Pen [place] 32G X 4 MM misc USE FIVE DAILY 100 each 025 Active cilostazol (Pletal) 100 MG tabletIndications: Peripheral arterial occlusive disease TAKE ONE TABLET TWICE DAILY IN THE MORNING AND AT BEDTIME 30 MINUTES BEFORE MEALS 60 tablet 1 025 Active Ferrous Sulfate (iron) 325 (65 Fe) MG tabletIndications: Normocytic anemia TAKE ONE TABLET EVERY MORNING. DO NOT BREAK, CRUSH, DISSOLVE OR CHEW 90 tablet 025 Active lidocaine (Lidoderm) 5 % [...] TABLETS PER 24 HOURS 40 tablet 1 04/20/20 25 11:08 AM EST 025 Active risperiDONE (RisperDAL) 3 MG tabletIndications: MDD (major depressive disorder), recurrent, severe, with psychosis (CMS/HCC) ([facility]) TAKE 1 TABLET BY MOUTH AT BEDTIME 90 tablet 025 Active traMADol (Ultram) 50 MG tabletIndications: Chronic right shoulder pain,Pain in right shoulder,Back pain, unspecified back location, unspecified back pain laterality, unspecified chronicity TAKE ONE TABLET EVERY 8 HOURS NEEDED FOR SEVERE PAIN 84 tablet 04/20/20 25 11:08 AM EST 025 Active amLODIPine (Norvasc) 10 MG tabletIndications: Primary hypertension Take 1 tablet (10 mg) by mouth Once per day. 30 tablet 11 04/29/20 25 10:56 AM EST 025 04/28 Active Tirzepatide 7.5 MG/0.5ML solution auto-injectorIndic ations:Type 2 diabetes mellitus with both eyes affected by mild nonproliferative retinopathy without macular edema, with long-term current use of insulin ([facility]) Inject 7.5 mg under the skin 1 (one) time per week. 2 mL 1 025 Active risperiDONE (RisperDAL) 3 MG tabletIndications: MDD (major depressive disorder), recurrent, severe, with psychosis (CMS/HCC) (HCC) TAKE 1 TABLET BY MOUTH AT BEDTIME 90 tablet 025 04/02 Discontinued( Reorder (will not trigger notification to Pharmacy)) Mounjaro 5 MG/0.5ML solution auto-injectorIndic ations:Type 2 diabetes mellitus with both eyes affected by mild nonproliferative retinopathy without macular edema, with long-term current use of insulin (HCC) INJECT ONE PEN (=5MG) SUBCUTANEOUSLY ONCE A WEEK DIRECTED 2 mL 2 025 04/28 Discontinued( Reorder (will not trigger notification to Pharmacy)) acetaminophen (Tylenol 8 Hour) 650 MG ER tabletIndications: Chronic pain syndrome,Sore throat,Bacterial conjunctivitis TAKE TWO TABLETS BY MOUTH EVERY EIGHT HOURS NEEDED FOR PAIN DO NOT EXCEED SIX TABLETS PER 24 HOURS 40 tablet 1 025 04/02 Discontinued traMADol (Ultram) 50 MG tabletIndications: Chronic right shoulder pain,Pain in right shoulder,Back pain, unspecified back location, unspecified back pain laterality, unspecified chronicity TAKE ONE TABLET BY MOUTH EVERY EIGHT HOURS NEEDED FOR SEVERE PAIN 84 tablet 025 04/13 Discontinued amLODIPine (Norvasc) 2.5 MG tabletIndications: Hypertension, unspecified type Take 3 tablets (7.5 mg) by mouth Once per day. 90 tablet 11 025 04/28 Discontinued Tirzepatide (Mounjaro) 5 MG/0.5ML solution auto-injectorIndic ations:Type 2 diabetes mellitus with both eyes affected by mild nonproliferative retinopathy without macular edema, with long-term current use of insulin (HCC) Inject 7.5 mg under the skin 1 (one) time per week. 2 mL 2 025 04/28 Discontinued( Therapy completed) Active Problems Problem Noted Date Diagnosed Date [...] disorder, r ecurrent, severe with psychotic features ([facility]) 07/04/2022 Assessment & Plan (10/30/2023 11:07 AM EDT): Prior history suicide attempts and hospitalizations. Still doing extremely well despite serious health conditions. Continue Risperidone 3 mg daily. He also takes Tramadol 50 mg TID prn and Gabapentin 600 mg TID for chronic back and shoulder pain. 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 Has [...] chronic back and shoulder pain. 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 Will [...] chronic back and shoulder pain. 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 He [...] chronic back and shoulder pain. 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 He [...] chronic back and shoulder pain. 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 F/U with me in 3 months. He agrees with the plan. Assessment & Plan (10/02/2022 10:49 AM EDT): Prior history suicide attempts and hospitalizations. Still doing extremely well. Hallucinations controlled. Continue Risperidone 3 mg daily. He also takes Tramadol 50 mg TID prn and Gabapentin 600 mg TID for chronic back and shoulder pain. 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 F/U [...] 07/21/2020 Coronary arteriosclerosis 06/07/2020 Hypertensive disorder 04/23/2017 Assessment & Plan (04/28/2025 2:23 PM EST): Orders: amLODIPine (Norvasc) 10 MG tablet; Take 1 tablet (10 mg) by mouth Once per day. Assessment & Plan (04/01/2025 8:26 AM EST): Hypertension remains poorly controlled with elevated blood pressure readings in clinic (170/90 and 160/93), despite home readings of 140/80 after taking amlodipine. Asymptomatic, with no dizziness or chest pain. Increase the amlodipine 7.5 mg daily from 5mg Continue with home BP monitoring 2-3 times per week Encouraged to complete labs ordered from previous visit. BP goal is 130/80 Orders: amLODIPine (Norvasc) 2.5 MG tablet; Take 3 tablets (7.5 mg) by mouth Once per day. Peripheral arterial occlusive disease 04/23/2017 Type 2 diabetes mellitus 04/23/2017 Assessment & Plan (04/28/2025 2:23 PM EST): Orders: POCT Glucose POCT Hgb A1c Tirzepatide (Mounjaro) 5 MG/0.5ML solution auto-injector; Inject 7.5 mg under the skin 1 (one) time per week. Assessment & Plan (04/01/2025 8:26 AM EST): Continue current regimen of Mounjaro and Lantus. Monitor blood glucose levels. Encourage adherence to diabetic diet and physical activity as tolerated. Orders: POCT Glucose Erectile dysfunction 10/27/2011 Resolved Problems Problem Noted Date Diagnosed Date Resolved Date Depressive disorder 02/25/2010 07/04/19 23 Encounters Date Type Department Care Team Description 04/28/2025 1:45 PM EST Office Visit [facility] [address] [place] [address] Juan Miguel Tinajero MD Primary hypertension (Primary Dx); Type 2 diabetes mellitus with both eyes affected by mild nonproliferative retinopathy without macular edema, with long-term current use of insulin ([facility]) 04/28/2025 Telephone [facility] [address] [place] [address] Juan Miguel Tinajero MD 04/28/2025 Travel 04/16/2025 Patient Outreach [facility] [address], [place] [phone] Juan Miguel Tinajero MD Pre-visit Planning ([facility] screening completed on 02/17/25) 04/11/2025 Refill [facility] [address] [place] [address] Armen Webb MD Chronic right shoulder pain; Pain in right shoulder; Back pain, unspecified back location, unspecified back pain laterality, unspecified chronicity 04/02/2025 Refill [facility] [address] [place] [address] Viviana Johnston MD MDD (major depressive disorder), recurrent, severe, with psychosis (CMS/HCC) ([facility]) 04/01/2025 Refill [facility] [address] [place] [address] Juan Miguel Tinajero MD Chronic pain syndrome; Sore throat; Bacterial conjunctivitis; MDD (major depressive disorder), recurrent, severe, with psychosis (CMS/HCC) ([facility]) 03/31/2025 1:30 PM EST Office Visit [facility] [address] [place] [address] Juan Miguel Tinajero MD Hypertension, unspecified type (Primary Dx); Type 2 diabetes mellitus with both eyes affected by mild nonproliferative retinopathy without macular edema, with long-term current use of insulin ([facility]) 03/31/2025 Travel 03/31/2025 Orders Only [facility] External Provider, [facility] 03/31/2025 Refill [facility] [address] [place] [address] Juan Miguel Tinajero MD Chronic right shoulder pain; Pain in right shoulder 03/30/2025 Telephone [facility] [address] [place] [address] Juan Miguel Tinajero MD Chart Prep 03/28/2025 Refill [facility] [address] [place] [address] Juan Miguel Tinajero MD Peripheral arterial occlusive disease; Normocytic anemia 03/18/2025 Refill [facility] [address] [place] [address] Juan Miguel Tinajero MD Chronic right shoulder pain; Pain in right shoulder; Back pain, unspecified back location, unspecified back pain laterality, unspecified chronicity 03/08/2025 Refill [facility] [address] [place] [address] Juan Miguel Tinajero MD Chronic pain syndrome; Sore throat; Bacterial conjunctivitis 03/04/2025 Refill [facility] [address] [place] [address] Juan Miguel Tinajero MD Type 2 diabetes mellitus with both eyes affected by mild nonproliferative retinopathy without macular edema, with long-term current use of insulin ([facility]) 02/19/2025 Refill [facility] [address] [place] [address] Juan Miguel Tinajero MD 02/17/2025 9:15 AM EDT Office Visit [facility] [address] [place] [address] Juan Miguel Tinajero MD Benign essential hypertension (Primary Dx); Type 2 diabetes mellitus with both eyes affected by mild nonproliferative retinopathy without macular edema, with long-term current use of insulin ([facility]); Stage 3a chronic kidney disease ([facility]); 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, initial encounter ([facility]); Gingivitis, acute; Immunization due; Dietary counseling; Exercise counseling; Class 1 obesity due to excess calories with serious comorbidity and body mass index (BMI) of 32.0 to 32.9 in adult 02/17/2025 Patient Outreach [facility] [address] [place] [id number] Juan Miguel Tinajero MD Care Coordination ([facility] outreach for SDOH-patient declined to participate ) 02/17/2025 Telephone [facility] [address] [place] [address] Juan Miguel iTnajero MD Medication Question 02/17/2025 Travel 02/16/2025 Telephone [facility] [address] [place] [address] Juan Miguel Tinajero MD chart prep 02/11/2025 Refill [facility] [address] [place] [address] Juan Miguel Tinajero MD Chronic pain syndrome; Sore throat; Bacterial conjunctivitis; Chronic right shoulder pain; Pain in right shoulder; Back pain, unspecified back location, unspecified back pain laterality, unspecified chronicity 02/10/2025 Results Follow-Up [facility] [address] [place] [address] Rosa Isela Marques RN CBC auto differential 02/09/2025 Orders Only [facility] [address] [place] [phone] Juan Miguel Tinajero MD Normocytic anemia (Primary Dx); Benign essential hypertension 02/04/2025 Refill [facility] [address] [place] [address] Armen Webb MD Peripheral arterial occlusive disease ([facility]) 02/02/2025 9:30 AM EDT Telemedicine [facility] [address] [place] [address] Elsa Barnett RN Back pain, unspecified back location, unspecified back pain laterality, unspecified chronicity 02/02/2025 Refill [facility] [address] [place] [address] Elsa Barnett RN 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, initial encounter ([facility]) 02/02/2025 Travel from Last 3 Months Immunizations Immunization Administration Dates Next Due Hep B, adult 05/23/2024,08/21/2022,07/24/2022 Influenza Injectable Quadriv alant Preservative Free IIV4 MDCK 04/14/2021 Influenza injectable quadriv alent IIV4 with preservative 04/23/2017,02/17/2016 Influenza injectable quadriv alent preservative free 03/13/2023,02/22/2022,03/31/2020 Influenza, IIV3, injectable 02/23/2014 Influenza, seasonal, injecta ble, preservative free 02/17/2025,05/14/2024 Moderna Covid-19 Vaccine 12+ 05/03/2021,09/28/19 21,08/30/2020 Pfizer Covid-19 Vaccine 12+ 05/14/2024,,02/28/2022 Pfizer Covid-19 Vaccine 12+ Bivalent 02/28/2022 Pneumococcal [...] Pulse 78 04/28/2025 1:25 PM EST Temperature 37 C (98.6 F) 01/14/2025 9:11 AM EDT Respiratory Rate 20 04/28/2025 1:25 PM EST Oxygen Saturation 98% 04/28/2025 1:25 PM EST Inhaled Oxygen Concentration - - Weight 87.5 kg (193 lb) 04/28/2025 1:25 PM EST Height 162.6 cm (5' 4 ) 04/28/2025 1:25 PM EST Body Mass Index 33.13 04/28/2025 1:25 PM EST Plan of Treatment Upcoming Encounters Date Type Department Care Team (Late st Contact Info) Description 06/04/2025 10:30 AM EST Clinical Support [facility] [address] [place] [address] Elsa Barnett RN [address] [place] [address] 06/04/2025 1:45 PM EST Office Visit [facility] [address] [place] [address] Juan Miguel Tinajero MD [address] [place] [id number] Health Maintenance Due Date Last Done Comments CT Colonography 1960 Dental Oral Exam 1960 Dental Prophylaxis 1960 Dental X-Ray: Bitewings 1960 FIT DNA/Cologuard 1960 FIT 1960 FOBT 1960 HIV Screening 1960 Sigmoidoscopy 1960 Hepatitis C Screening 1978 RSV Patients and Patients Aged 60 years or older (1 - Risk 50-74 years 1-dose series) 2010 Diabetes: Urine Protein Screening 06/22/2022 06/22/2021 Colonoscopy 10/06/2023 10/05/2022, 09/25, 08/16/2021, Additional history exists Colorectal Cancer Screening 10/06/2023 Dental X-Ray: Full Mouth 09/02/2024 09/01/2021 COVID-19 Vaccine ( season) 2025 05/14/2024, 03/19/2023, 02/28/2022, Additional history exists Lipid Panel 05/14/2025 05/14/2024, 07/27/2022 Diabetes: Hemoglobin A1C 07/27/2025 025, 01/14/2025, 09/23/2024, Additional history exists Eye Exam 11/19/2025 11/19/2024, 10/27, 11/19/2024, Additional history exists Alcohol/Substance Use Screening 01/14/2026 01/14/2025 Depression Screening 01/14/2026 01/14/2025, 01/15/20 Disability Screening 01/14/2026 01/14/2025 Diabetes: Foot Exam 02/17/2026 02/17/2025, 05/14/2024, 03/13/2023, Additional history exists SDOH Screening 02/17/2026 02/17/2025 Tobacco Screening 02/18/2026 02/18/2025 DTaP/Tdap/Td Vaccines (3 - Td or Tdap) 05/23/2034 05/23/2024, 01/21/2014 Zoster Vaccines Completed 06/22/2020, 11/0 09/2019, 04/01/2020 Pneumococcal Vaccine: 50+ Years Completed 07/31/2023, 12/10/2015 Hepatitis B Vaccines Completed 05/23/2024, 08/21/2022, 07/24/2022 [...] 9.6( 2:33 PM EST) No Juan Cordova, PharmConstantin Help patients manage their type 2 diabetes Care Plan Help patients manage their type 2 diabetes No Elsa Barnett RN Weekly blood pressure task Care Plan Weekly blood pressure task No Elsa Barnett RN Help patients manage their type 2 diabetes Care Plan Help patients manage their type 2 diabetes No lEsa Barnett RN Patient has chronic kidney disease [...] Plan Patient has diabetic eye disease No Hamilton Villa FNP Patient has diabetic eye disease Care Plan Patient has diabetic eye disease No Hamilton Villa FNP Weekly blood pressure task Care Plan Weekly blood pressure task No Nicole Lugo RN Weekly blood pressure task Care Plan Weekly blood pressure task No Nicole Lugo RN Patient has chronic kidney disease Care Plan Patient has chronic kidney disease No Nicole Lugo RN Patient has chronic kidney disease Care Plan Patient has chronic kidney disease No Nicole Lugo RN Procedures Procedure Name Priority Date/Time Associated Diagnosis [...] with long-term current use of insulin (HCC) AMB REFERRAL TO ENT Routine 04/14/2025 Impacted cerumen of right ear POCT GLUCOSE Routine 03/31/2025 3:39 PM EST Type 2 diabetes mellitus with both eyes affected by mild nonproliferative retinopathy without macular edema, with long-term current use of insulin (HCC) VASC US LOWER EXTREMITY ARTERIAL DUPLEX BILATERAL WITH AFIA Routine 03/31/2025 8:47 AM EST POCT GLUCOSE Routine 02/17/2025 10:42 AM EDT Type 2 diabetes mellitus with both eyes affected by mild nonproliferative retinopathy without macular edema, with long-term current use of insulin ([facility]) CBC WITH AUTO DIFFERENTIAL Routine 02/09/2025 10:38 AM EDT Normocytic anemia LIPID PANEL, STANDARD Routine 05/14/2024 10:41 AM EST Type 2 diabetes mellitus with hyperglycemia, with long-term current use of insulin ([facility]) COLONOSCOPY Routine 10/05/2022 from Last 3 Months or Most Recently Relevant to Health Maintenance Results * (ABNORMAL) POCT Hgb A1c (04/28/2025 2:33 PM EST) Hemoglobin A1C 9.6(A) 4.0 - 5.7 % QC Media Lot # [id number] Lot# Expiration Date 522,027 Blood 04/28/2025 2:33 PM EST Hamilton Villa [facility] POINT OF CARE TEST ENTER/EDIT ORDERABLES Final Result * POCT Glucose (04/28/2025 2:33 PM EST) Only the most recent of3 resultswithin the time period is included. Glucose Blood, POC 161 60 - 200 mg/dL QC Media Lot # [id number] Lot# Expiration Date 472,026 Comment:random Blood Capillary blood specimen / Unknown 04/28/2025 2:33 PM EST Hamilton Villa [employer] POINT OF CARE TEST ENTER/EDIT ORDERABLES Final Result * Referral to ENT (04/14/2025) Whit Amezcua MD OUTPATIENT REFERRAL ORDERABLE S Final Result * [facility] US Lower Extremity Arterial Duplex Bilateral With Afia (03/31/2025 8:47 AM EST) 03/31/2025 8:47 AM [facility] IMAGING - 03/31/2025 9:[address] [address] Ultrasound Report Signed Patient: Osvaldo Ding MR#: [id number] : 1960 Acct:[id number] Age/Sex: 64 / M ADM Date: 03/31/25 Loc: .US Attending Dr: Quique Whitney MD Ordering Physician: Quique Whitney MD Date of Service: 03/31/25 Procedure(s): US arterial duplex BI w/ AFIA Accession Number(s): [id number] cc: Juan Miguel Tinajero MD; Quique Whitney MD Reason for Exam: I73.9 - Peripheral vascular disease, unspecified EXAMINATION: Noninvasive assessment of the bilateral lower extremities with ARTERIAL DUPLEX, ANKLE BRACHIAL INDICES (ABIs), and PULSE VOLUME RECORDINGS (PVRs). CLINICAL INFORMATION: I 73.9. Status post stenting left superficial femoral artery. TECHNIQUE: Duplex Doppler techniques with waveform analysis and measurement of velocities in the bilateral common femoral, profunda femoris, superficial femoral, popliteal and tibial arteries were performed. Additionally, ankle pulse volume recordings, ankle pressure measurements and ankle brachial indices were obtained of the lower extremity arterial system bilaterally. The study was performed only at rest. COMPARISON: March 11, 2024. FINDINGS: DIRECT DUPLEX DOPPLER FINDINGS: RIGHT LEG: Common femoral artery: 146 cm/s, phasicity: Biphasic. Spectral broadening. Profunda femoris artery: 140 cm/s, phasicity: Biphasic. Superficial femoral artery (proximal): 81 cm/s, phasicity: Biphasic. Spectral broadening. Superficial femoral artery (mid): 24 cm/s, phasicity: Biphasic. Spectral broadening. Superficial femoral artery (distal): 44 cm/s, phasicity: Biphasic. Spectral broadening. Popliteal artery: 40 cm/s, phasicity: Biphasic. Spectral broadening. Posterior tibial artery: 32 cm/s, phasicity: Biphasic. Spectral broadening. Peroneal artery: 32 cm/s, phasicity: Biphasic. Spectral broadening. Anterior tibial artery: 34 cm/s, phasicity: Biphasic. Spectral broadening. Dorsalis pedis artery: 27 cm/s, phasicity:Monophasic. Spectral broadening. LEFT LEG: Common femoral artery: 188 cm/s, phasicity: Biphasic. Spectral broadening. Profunda femoris artery: 172 cm/s, phasicity: Monophasic. Spectral broadening. Superficial femoral artery (proximal): Stent. Superficial femoral artery (mid): Stent Superficial femoral artery (distal):Stent Popliteal artery: 90 cm/s, phasicity: Biphasic. Posterior tibial artery: 56 cm/s, phasicity: Biphasic. Spectral broadening. Peroneal artery: 38 cm/s, phasicity: Biphasic. Spectral broadening. Anterior tibial artery: 67 cm/s, phasicity: Biphasic. Spectral broadening. Dorsalis pedis artery: 48 cm/s, phasicity: Biphasic. Spectral broadening. Reversal. Left superficial femoral artery stent peak systolic velocities: [place] artery proximal to the stent: 266 cm/s, biphasic waveforms and spectral broadening. Proximal stent: 1 19 cm/s, biphasic waveforms. Mid stent: 79 cm/s, biphasic waveform. Distal stent: 117 cm/s and, biphasic waveform. [place] artery distal to the stent: 77 cm/s, biphasic waveform. BRACHIAL PRESSURES: Right: Nondiagnostic, pressure greater than 200. Left: Nondiagnostic, pressure greater than 200. ANKLE PRESSURES: Right: PT 200, DP 200 Left: PT 203, DP 202 ANKLE-BRACHIAL INDEX: Right: 1.0 Left: 1.01. ANKLE PVR WAVEFORMS: Right: Abnormal Left: Abnormal US/US arterial duplex BI w/ AFIA IMPRESSION: Right leg: Moderate inflow disease throughout the interrogated arteries. Left leg: Moderate to severe inflow disease throughout the interrogated arteries. Patency of the superficial femoral artery with high velocities proximal chitimacha artery segment. AFIA Reference: - >1.4 = calcified vessels - 0.9 - 1.4 = normal - no significant arterial disease - 0.7 - 0.89 = mild peripheral arterial disease - 0.51 - 0.69 = moderate peripheral arterial disease - 0.50 = severe peripheral arterial disease - < .30 = critical arterial disease Electronically signed by: Jeremy Nicolas MD 03/31/2025 09:45 AM EST Dictated By: Jeremy Calvo MD Signed By: <Electronically signed by Jeremy Lopez MD in OV> 03/31/25 0945 DD/ 0847 TD/TT: 03/31/25 0922 Marine Designer: Procedure Note Donotuseinterpreter, Image - 03/31/[address] [address] Ultrasound Report Signed Patient: Marilyn Ding#: [id number] : 1Acct:[id number] Age/Sex: 64 / MADM Date: 03/31/25 Loc: HO.US Attending Dr: Quique Whitney MD Ordering Physician: Quique Whitney MD Date of Service: 03/31/25 Procedure(s): US arterial duplex BI w/ AFIA Accession Number(s): [id number] cc: Juan Miguel Tinajero MD; Quique Whitney MD Reason for Exam: I73.9 - Peripheral vascular disease, unspecified EXAMINATION: Noninvasive assessment of the bilateral lower extremities with ARTERIAL DUPLEX, ANKLE BRACHIAL INDICES (ABIs), and PULSE VOLUME RECORDINGS (PVRs). CLINICAL INFORMATION: I 73.9. Status post stenting left superficial femoral artery. TECHNIQUE: Duplex Doppler techniques with waveform analysis and measurement of velocities in the bilateral common femoral, profunda femoris, superficial femoral, popliteal and tibial arteries were performed. Additionally, ankle pulse volume recordings, ankle pressure measurements and ankle brachial indices were obtained of the lower extremity arterial system bilaterally. The study was performed only at rest. COMPARISON: March 11, 2024. FINDINGS: DIRECT DUPLEX DOPPLER FINDINGS: RIGHT LEG: Common femoral artery: 146 cm/s, phasicity: Biphasic. Spectral broadening. Profunda femoris artery: 140 cm/s, phasicity: Biphasic. Superficial femoral artery (proximal): 81 cm/s, phasicity: Biphasic. Spectral broadening. Superficial femoral artery (mid): 24 cm/s, phasicity: Biphasic. Spectral broadening. Superficial femoral artery (distal): 44 cm/s, phasicity: Biphasic. Spectral broadening. Popliteal artery: 40 cm/s, phasicity: Biphasic. Spectral broadening. Posterior tibial artery: 32 cm/s, phasicity: Biphasic. Spectral broadening. Peroneal artery: 32 cm/s, phasicity: Biphasic. Spectral broadening. Anterior tibial artery: 34 cm/s, phasicity: Biphasic. Spectral broadening. Dorsalis pedis artery: 27 cm/s, phasicity:Monophasic. Spectral broadening. LEFT LEG: Common femoral artery: 188 cm/s, phasicity: Biphasic. Spectral broadening. Profunda femoris artery: 172 cm/s, phasicity: Monophasic. Spectral broadening. Superficial femoral artery (proximal): Stent. Superficial femoral artery (mid): Stent Superficial femoral artery (distal):Stent Popliteal artery: 90 cm/s, phasicity: Biphasic. Posterior tibial artery: 56 cm/s, phasicity: Biphasic. Spectral broadening. Peroneal artery: 38 cm/s, phasicity: Biphasic. Spectral broadening. Anterior tibial artery: 67 cm/s, phasicity: Biphasic. Spectral broadening. Dorsalis pedis artery: 48 cm/s, phasicity: Biphasic. Spectral broadening. Reversal. Left superficial femoral artery stent peak systolic velocities: [place] artery proximal to the stent: 266 cm/s, biphasic waveforms and spectral broadening. Proximal stent: 1 19 cm/s, biphasic waveforms. Mid stent: 79 cm/s, biphasic waveform. Distal stent: 117 cm/s and, biphasic waveform. [place] artery distal to the stent: 77 cm/s, biphasic waveform. BRACHIAL PRESSURES: Right: Nondiagnostic, pressure greater than 200. Left: Nondiagnostic, pressure greater than 200. ANKLE PRESSURES: Right: PT 200, DP 200 Left: PT 203, DP 202 ANKLE-BRACHIAL INDEX: Right: 1.0 Left: 1.01. ANKLE PVR WAVEFORMS: Right: Abnormal Left: Abnormal US/US arterial duplex BI w/ AFIA IMPRESSION: Right leg: Moderate inflow disease throughout the interrogated arteries. Left leg: Moderate to severe inflow disease throughout the interrogated arteries. Patency of the superficial femoral artery with high velocities proximal chitimacha artery segment. AFIA Reference: - >1.4 = calcified vessels - 0.9 - 1.4 = normal - no significant arterial disease - 0.7 - 0.89 = mild peripheral arterial disease - 0.51 - 0.69 = moderate peripheral arterial disease - 0.50 = severe peripheral arterial disease - < .30 = critical arterial disease Electronically signed by: Jeremy Nicolas MD 03/31/2025 09:45 AM [facility] Dictated By: Jeremy Calvo MD Signed By: <Electronically signed by Jeremy Lopez MDin OV> 03/31/2545 DD/ TD/TT: 03/31/25921 Marine Designer: [facility] External Provider CV VASC ULAR PROCEDURES Final Result [facility] [address] [place] [phone] * (ABNORMAL) CBC auto differential (02/09/2025 10:38 AM EDT) White Blood Count 8.2 4.8 - 10.8 X10*3/uL [facility] Red Blood Count 3.86(L) 4.60 - 5.80 X10*6/uL [facility] Hemoglobin 10.6(L) 14.0 - 18.0 g/dl [facility] Hematocrit 31.7(L) 42.0 - 52.0 % [facility] Mean Corpuscular Volume 82.1 80.0 - 98.0 fL [facility] Mean Corpuscular Hemoglobin 27.5 27.0 - 33.0 pg [facility] Mean Corpuscular HGB Conc 33.4 31.0 - 36.0 g/dl [facility] Red Cell Distribution Width 15.7 11.0 - 16.0 % [facility] Platelet Count 219 160 - 400 X10*3/uL [facility] Mean Platelet Volume 10.7 9.4 - 12.4 [facility] Neutrophils Percent Auto 62.4 45 - 73 % [facility] Imm Gran Pct Auto 0.2 0.0 - 0.4 % [facility] Lymphocytes Percent Auto 26.4 20 - 40 % [facility] Monocytes Percent Auto 6.1 2 - 11 % [facility] Eosinophils Percent Auto 4.5(H) 0 - 4 % [facility] Basophils Percent Auto 0.4 0 - 2 % [facility] NRBC Pct Auto 0.0 0.0 - 0.2 /100WBC [facility] Neutrophils Absolute Auto 5.1 2.0 - 8.3 x10*3/uL [facility] Imm Gran Abs Auto 0.02 0.00 - 0.03 X10*3/uL [facility] Lymphocytes Absolute Auto 2.2 1.2 - 4.9 X10*3/uL [facility] Monocytes Absolute Auto 0.5 0.1 - 1.2 X10*3/uL [facility] Eosinophils Absolute Auto 0.4 0.0 - 0.4 X10*3/uL [facility] Basophils Absolute Auto 0.0 0.0 - 0.2 X10*3/uL [facility] NRBC Abs Auto 0.000 0.0 - 0.012 X10*3/uL [facility] Blood Venous blood specimen / Unknown 02/09/2025 10:38 AM EDT 02/09/2025 2:00 PM EDT us Juan Miguel Tinajero MD LAB BLOOD ORDERABLES Final Result [facility] [address] [place], [place] [phone] * Lipid Panel, Standard (05/14/2024 10:41 AM EST) Triglycerides 71 <150 mg/dL [facility] Comment:Desirable Triglyceri de: less than 150 mg/dLBorderline High Triglyceride 150-199 mg/dLHigh Triglyceride: 200-499 mg/dLVery High Triglyceride: greater than or equal to 5OO mg/dL Cholesterol 122 <200 mg/dL [facility] Comment:Desirable Cholestero l: less than 200 mg/dLBorderline High Cholesterol: 200-239 mg/dLHigh Cholesterol: greater than 239 mg/dL LDL Cholesterol Calculated 64 <100 mg/dL [facility] Comment:Desirable LDL: less than 100 mg/dLNear Optimal/Above Optimal LDL: 110- 129 mg/dLBorderline High LDL: 130-159 mg/dLHigh LDL: 160-189 mg/dLVery High LDL: greater than or equal to 190 mg/dL HDL Cholesterol 44 >40 mg/dL [facility] Comment:Desirable HDL: great er than 40 mg/dL Note: This HDL assay may give artificially low results in patients with liver disease. Blood Venous blood specimen / Unknown 05/14/2024 10:41 AM EST 05/14/2024 2:06 PM EST Juan Miguel Tinajero MD LAB BLOOD ORDERABLES Final Result Performing Organization Address City/State/[facility] Co de Phone Number [facility] [address] [place] [address] [phone] * (ABNORMAL) Colonoscopy (10/05/2022) Anatomical Region Laterality Modality Endoscopy Narrative 10/05/2022 Poor prep johnathon right side internal hemorrhoids. us Historical Provider ENDOSCOPY PROCEDURE ORDER XANDER Final Result from Last 3 Months or Most Recently Relevant to Health Maintenance Additional Health Concerns Active Problems Noted Date [...] 04/28/2025 Patient has chronic kidney disease 04/28/2025 Insurance [facility] C3 DENTAL-[facility] MEDICAID STAND ADULT Care Teams Shadowgraph Operator Relationship Specialty Start Date End Date Juan Miguel Tinajero MD [address] [place] [address] PCP - General Internal Medicine 05/28/18 Juan Cordova, PharmD [address] [place] [address] Pharmacist Internal Medicine 07/14/22 Yvonne Knox Ordnance Artificer HelperOrder To Delivery Supervisor 02/15/23 Yvonne Knox Ordnance Artificer HelperOrder To Delivery Supervisor 04/09/24
--- OUTSIDE RECORDS SUMMARY | 2025-04-30 10:10 | XMS_ITS | Encounter Summary ---
Author Organization [employer] Address [address] [facility] 7 [place] [address] Care Team Providers Care State Farm Agent Team Member Name Role Phone Juan Miguel Tinajero MD Primary Care Provider [phone] Juan Cordova PharmD Unavailable Unavail able Aidee Mejia Unavailable Encounter Details Date Type Department Care Team ([facility] Contact Info) Description 11/09/2023 Orders Only [facility] MED & PEDS [address] [place], [place] [phone] Juan Miguel Tinajero MD [address] [place] [address] Social History Tobacco Use Types Packs/Day Years [...] Description 06/04/2025 10:30 AM EST Clinical Support [facility] MED & PEDS [address] [place] [address] Elsa Barnett RN 505 [place] [address] 06/04/2025 1:45 PM EST Office Visit [facility] [address] [place] [address] Juan Miguel Tinajero MD [address] [place] [address] documented as of this encounter Goals Goal [...] documented as of this encounter Care Teams State Farm Agent Team Member Relationship Specialty Start Date End Date Juan Miguel Tinajero MD [address] [place] [address] PCP - General Internal Medicine 05/28/18 Juan Cordova, EbonieD [address] [place] [address] Pharmacist Internal Medicine 07/14/22 Aidee Mejia 12/29/24 01/07/25 Yvonne Knox Desk ReporterRegulatory Affairs Internship 02/15/23 Yvonne Knox Desk ReporterRegulatory Affairs Internship 04/09/24 documented as of this encounter
--- OUTSIDE RECORDS SUMMARY | 2025-04-30 10:10 | XMS_ITS | Encounter Summary ---
Author Organization [employer] Address 75 [facility] 7t [place] [address] Care Team Providers Care Tea Taster Name Role Phone Juan Miguel Tinajero MD Primary Care Provider [phone] Juan Cordova PharmD Unavailable Unavail able Aidee Mejia Unavailable Reason for Visit * Reason Comments Med Refill Encounter Details Date Type Department Care Team ([facility] Contact Info) Description 03/28/2024 Refill [facility] MED & PEDS [address] [place], [place] [phone] Juan Miguel Tinajero MD [address] [place] [address] Sore throat; Bacterial conjunctivitis; Chronic pain syndrome [...] Description 06/04/2025 10:30 AM EST Clinical Support [facility] MED & PEDS [address] [place] [address] Elsa Barnett RN 505 [place] [address] 06/04/2025 1:45 PM EST Office Visit [facility] PED[facility] [address] [place] [address] Juan Miguel Tinajero MD 505 [place] [address] documented as of this encounter Goals Goal Patient Goal Type Associated Problems Recent Progress Patient-Stated? Author Blood Pressure < 140/90 Blood Pressure 164/85(2024 1:25 PM EST) No JefelogJuan mtz, PharmD Hemoglobin A1c < 7 Result Component 9.6( 2:33 PM EST) No Juan Cordova, PharmD documented as of this encounter Visit Diagnoses Diagnosis Sore throat Acute pharyngitis Bacterial conjunctivitis Other mucopurulent conjunctivitis Chronic pain syndrome documented in this encounter Additional Health Concerns Assessment Noted Time PHQ-9 Depression Total Score: 0 10/30/19 10:10 AM EDT documented as of this encounter Care Teams Tea Taster Relationship Specialty Start Date End Date Juan Miguel Tinajero MD 505 [facility] [place] [address] PCP - General Internal Medicine 05/28/18 Juan Cordova PharmD [address] [facility] [place] [address] Pharmacist Internal Medicine 07/14/22 Aidee Mejia 12/29/24 01/07/25 Yvonne Knox Manager RecruitmentCan Solderer 02/15/23 Yvonne Knox Manager RecruitmentCan Solderer 04/09/24 documented as of this encounter
--- OUTSIDE RECORDS SUMMARY | 2025-04-30 10:10 | XMS_ITS | Encounter Summary ---
Author Organization [employer] Address 75 [facility] 7t [place] [address] Care Team Providers Care Dairy Worker Name Role Phone Juan Miguel Tinajero MD Primary Care Provider [phone] Juan Cordova PharmD Unavailable Unavail able Aidee Mejia Unavailable Reason for Visit * Reason Comments Med Refill Encounter Details Date Type Department Care Team ([facility] Contact Info) Description 10/31/[address] [facility] MED & PEDS [address] [place], [place] [phone] Juan Miguel Tinajero MD [address] [place] [address] Sore throat; Bacterial conjunctivitis; Chronic pain syndrome [...] Description 06/04/2025 10:30 AM EST Clinical Support [facility] MED & PEDS [address] [place] [address] Elsa Barnett RN 505 [place] [address] 06/04/2025 1:45 PM EST Office Visit [facility] MED & PEDS [address] [place] [address] Juan Miguel Tinajero MD [address] [place] [address] documented as of this encounter Goals Goal [...] documented as of this encounter Care Teams Dairy Worker Relationship Specialty Start Date End Date Juan Miguel Tinajero MD [address] [facility] [place] [address] PCP - General Internal Medicine 05/28/18 Juan Cordova PharmD [address] [place] [address] Pharmacist Internal Medicine 07/14/22 Aidee Mejia 12/29/24 01/07/25 Yvonne Knox Loan ExaminerAccounting Manager Controller 02/15/23 Yvonne Knox Loan ExaminerAccounting Manager Controller 04/09/24 documented as of this encounter
--- OUTSIDE RECORDS SUMMARY | 2025-04-30 10:10 | XMS_ITS | Encounter Summary ---
Author Organization [employer] Address [address] [place] [address] 7t [place] [address] Care Team Providers Care Embedded Software Test Engineer Name Role Phone Juan Miguel Tinajero MD Primary Care Provider [phone] Juan Cordova PharmD Unavailable Unavail able Aidee Mejia Unavailable Reason for Visit * Reason Comments Med Refill Encounter Details Date Type Department Care Team ([facility] Contact Info) Description 12/18/2022 Refill [facility] MED & PEDS [address] [place], [place] [phone] Juan Miguel Tinajero MD [address] [place] [address] Back pain, unspecified back location, unspecified back [...] Department Care Team (Late Contact Info) Description 06/04/2025 10:30 AM EST Clinical Support [facility] MED & PEDS [address] [place] [address] Elsa Barnett, JENS [address] [place] [address] 06/04/2025 1:45 PM EST Office Visit [facility] MED & PEDS [address] [place] [address] Juan Miguel Tinajero MD [address] [place] [address] documented as of this encounter Goals Goal [...] documented as of this encounter Care Teams Embedded Software Test Engineer Relationship Specialty Start Date End Date Juan Miguel Tinajero MD [address] [place] [address] PCP - General Internal Medicine 05/28/18 Juan Cordova, PharmD [address] [place] [address] Pharmacist Internal Medicine 07/14/22 Aidee Mejia 12/29/24 01/07/25 Yvonne Knox Carton Machine OperatorCloth Tester Quality 02/15/23 Yvonne Knox Carton Machine OperatorCloth Tester Quality 04/09/24 documented as of this encounter
--- OUTSIDE RECORDS SUMMARY | 2025-04-30 10:10 | XMS_ITS | Encounter Summary ---
Author Organization [employer] Address 75 [facility] 7t [place] [address] Care Team Providers Care Screen Printing Machine Loader Unloader Name Role Phone Juan Miguel Tinajero MD Primary Care Provider [phone] Juan Cordova PharmD Unavailable Unavail able Aidee Mejia Unavailable Encounter Details Date Type Department Care Team (Late st Contact Info) Description 03/27/2023 Abstract [facility] MEDICINE [address] [place] [address] Juan Miguel Tinajero MD [address] [place] [address] Social History Tobacco Use Types Packs/Day Years [...] [facility] [address] [place] [address] Elsa Barnett RN 505 [place] [address] 06/04/2025 1:45 PM EST Office Visit [facility] MED & PEDS [address] [place] [address] Juan Miguel Tinajero MD [address] [place] [address] documented as of this encounter Goals Goal [...] documented as of this encounter Care Teams Screen Printing Machine Loader Unloader Relationship Specialty Start Date End Date Juan Miguel Tinajero MD [address] [place] [address] PCP - General Internal Medicine 05/28/18 Juan Cordova, PharmD [address] [place] [address] Pharmacist Internal Medicine 07/14/22 Aidee Mejia 12/29/24 01/07/25 Yvonne Knox Security InternFelt Cutter 02/15/23 Yvonne Knox Security InternFelt Cutter 04/09/24 documented as of this encounter
--- OUTSIDE RECORDS SUMMARY | 2025-04-30 10:11 | XMS_ITS | Encounter Summary ---
Author Organization [employer] Address [address] [facility] 7t [place] [address] Care Team Providers Care Airplane Designer Name Role Phone Juan Miguel Tinajero MD Primary Care Provider [phone] Juan Cordova PharmD Unavailable Unavail able Aidee Mejia Unavailable Encounter Details Date Type Department Care Team ([facility] Contact Info) Description 09/26/2023 Orders Only [facility] MED & PEDS [address] [place], [place] [phone] Juan Miguel Tinajero MD [address] [place] [address] Social History Tobacco Use Types Packs/Day Years [...] [facility] [address] [place] [address] Elsa Barnett RN [address] [place] [address] 06/04/2025 1:45 PM EST Office Visit [facility] MED & PEDS [address] [place] [address] Juan Miguel Tinajero MD [address] [place] [address] documented as of this encounter Goals Goal [...] documented as of this encounter Care Teams Airplane Designer Relationship Specialty Start Date End Date Juan Miguel Tinajero MD [address] [place] [address] PCP - General Internal Medicine 05/28/18 Juan Cordova, EbonieD 505 [facility] [address] Pharmacist Internal Medicine 07/14/22 Aidee Mejia 12/29/24 01/07/25 Yvonne Knox Hall TenderStrawhat Sizer 02/15/23 Yvonne Knox Hall TenderStrawhat Sizer 04/09/24 documented as of this encounter
--- OUTSIDE RECORDS SUMMARY | 2025-04-30 10:11 | XMS_ITS | Encounter Summary ---
Author Organization [employer] [facility] Address [address] [place] [address] 7 [place] [address] Care Team Providers Care Film Casting Operator Name Role Phone Juan Miguel Tinajero MD Primary Care Provider [phone] Juan Cordova PharmD Unavailable Unavail able Aidee Mejia Unavailable Encounter Details Date Type Department Care Team (Late st Contact Info) Description 04/24/2022 Abstract [facility] ADULT DENTAL [address] [place] [address] Dental, Provider, DDS Social History Tobacco Use [...] Description 06/04/2025 10:30 AM EST Clinical Support [facility] MED & PEDS [address] [place] [address] Elsa Barnett, JENS [address] [place] [address] 06/04/2025 1:45 PM EST Office Visit [facility] MED & PEDS [address] [place] [address] Juan Miguel Tinajero MD [address] [place] [address] documented as of this encounter Procedures Procedure [...] on filedocumented in this encounter Care Teams Film Casting Operator Relationship Specialty Start Date End Date Juan Miguel Tinajero MD [address] [place] [address] PCP - General Internal Medicine 05/28/18 Juan Cordova PharmD [address] [place] [address] Pharmacist Internal Medicine 07/14/22 Aidee Mejia 12/29/24 01/07/25 Yvonne Knox Epidemiology InternMarine Technician 02/15/23 Yvonne Knox Epidemiology InternMarine Technician 04/09/24 documented as of this encounter
--- OUTSIDE RECORDS SUMMARY | 2025-04-30 10:11 | XMS_ITS | Encounter Summary ---
Author Organization [employer] Address 75 [facility] 7t [place] [address] Care Team Providers Care Representative Personal Service Name Role Phone Juan Miguel Tinajero MD Primary Care Provider [phone] Juan Cordova PharmD Unavailable Unavail able Aidee Mejia Unavailable Encounter Details Date Type Department Care Team ([facility] st Contact Info) Description 10/02/2023 Telephone [facility] MEDICINE [address] [place] [address] Juan Miguel Tinajero MD [address] [place] [address] Social History Tobacco Use Types Packs/Day Years [...] Description 06/04/2025 10:30 AM EST Clinical Support [facility] MED & PEDS [address] [place] [address] Elsa Barnett RN [address] [place] [address] 06/04/2025 1:45 PM EST Office Visit [facility] MED & PEDS [address] [place] [address] Juan Miguel Tinajero MD [address] [place] [address] documented as of this encounter Goals Goal [...] documented as of this encounter Care Teams Representative Personal Service Relationship Specialty Start Date End Date Juan Miguel Tinajero MD [address] [place] [address] PCP - General Internal Medicine 05/28/18 Juan Cordova, PharmD [address] [place] [address] [place] [address] Pharmacist Internal Medicine 07/14/22 Aidee Mejia 12/29/24 01/07/25 Yvonne Knox Plexiglas FormerTransportation Project Manager 02/15/23 Yvonne Knox Plexiglas FormerTransportation Project Manager 04/09/24 documented as of this encounter
--- OUTSIDE RECORDS SUMMARY | 2025-04-30 10:11 | XMS_ITS | Encounter Summary ---
Author Organization [employer] Address 75 [facility] 7t [place] [address] Care Team Providers Care Rotary Driller Helper Name Role Phone Juan Miguel Tinajero MD Primary Care Provider [phone] Juan Cordova PharmD Unavailable Unavail able Aidee Mejia Unavailable Reason for Visit * Reason Comments Med Refill Encounter Details Date Type Department Care Team (Late Contact Info) Description 08/19/2022 Refill [facility] MED & PEDS [address] [place], [place] [phone] Juan Miguel Tinajero MD 505 [place] [address] Seasonal allergic rhinitis due to other allergic [...] [facility] & [facility] [address] [place] [address] Elsa Barnett, JENS 505 [place] [address] 06/04/2025 1:45 PM EST Office Visit [facility] [address] [place] [address] Juan Miguel Tinajero MD 505 [place] [address] documented as of this encounter Goals Goal Patient Goal Type Associated Problems Recent Progress Patient-Stated? Author Hemoglobin A1c < 7 Result Component 9.6(04/28/2025 2:33 PM EST) No Juan Cordova, PharmD documented as of this encounter Visit Diagnoses Diagnosis Seasonal allergic rhinitis due to other allergic trigger documented in this encounter Additional Health Concerns Assessment Noted Time PHQ-9 Depression Total Score: 4 07/04/19 10:02 AM EST documented as of this encounter Care Teams Rotary Driller Helper Relationship Specialty Start Date End Date Juan Miguel Tinajero MD 505 [place] [address] PCP - General Internal Medicine 05/28/18 Juan Cordova, PharmD 505 [place] [address] Pharmacist Internal Medicine 07/14/22 Aidee Mejia 12/29/24 01/07/25 Yvonne Knox Stock HolderInstrumentation Specialist 02/15/23 Yvonne Knox Stock HolderInstrumentation Specialist 04/09/24 documented as of this encounter
--- OUTSIDE RECORDS SUMMARY | 2025-04-30 10:11 | XMS_ITS | Encounter Summary ---
Author Organization [employer] Address [address] [facility] 7 [place] [address] Care Team Providers Care Industrial Analyst Name Role Phone Juan Miguel Tinajero MD Primary Care Provider [phone] Juan Cordova PharmD Unavailable Unavail able Aidee Mejia Unavailable Reason for Visit * Reason Comments Med Refill Encounter Details Date Type Department Care Team ([facility] st Contact Info) Description 09/21/2023 Refill [facility] MED & PEDS [address] [place], [place] [phone] Juan Miguel Tinajero MD 505 [place] [address] Chronic right shoulder pain; Pain in right [...] [facility] MED & PEDS [address] [place] [address] Elsa Barnett RN 505 [place] [address] 06/04/2025 1:45 PM EST Office Visit [facility] MED & PEDS [address] [place] [address] Juan Miguel Tinajero MD 505 [place] [address] documented as of this encounter Goals Goal [...] documented as of this encounter Care Teams Industrial Analyst Relationship Specialty Start Date End Date Juan Miguel Tinajero MD 505 [place] [address] PCP - General Internal Medicine 05/28/18 Juan Cordova, EbonieD 505 [place] [address] Pharmacist Internal Medicine 07/14/22 Aidee Mejia 12/29/24 01/07/25 Yvonne Knox Brand ExecutiveFilter Plant Operator 02/15/23 Yvonne Knox Brand ExecutiveFilter Plant Operator 04/09/24 documented as of this encounter
--- OUTSIDE RECORDS SUMMARY | 2025-04-30 10:11 | XMS_ITS | Encounter Summary ---
Author Organization [employer] Address [address] [facility] 7t [place] [address] Care Team Providers Care Urologist Name Role Phone Juan Miguel Tinajero MD Primary Care Provider [phone] Juan Cordova PharmD Unavailable Unavail able Aidee Mejia Unavailable Reason for Visit * Reason Onset Date Comments Med Refill haul cane brakeman 09/07/2024 Encounter Details Date Type Department Care Team ([facility] st Contact Info) Description 09/07/2024 Refill [facility] MED & PEDS [address] [place], [place] [phone] Juan Miguel Tinajero MD 505 [place] [address] Dyshydrosis Social History Tobacco Use Types Packs/Day [...] EDT TC to pt via S # [id number]. GENERAL REPAIR MECHANIC appt on 09/09/24 converted to a televisit. documented in this encounter Plan of Treatment Upcoming Encounters Date Type Department Care Team (Late st Contact Info) Description 06/04/2025 10:30 AM EST Clinical Support [facility] MED & PEDS [address] [place] [address] Elsa Barnett RN 505 [place] [address] 06/04/2025 1:45 PM EST Office Visit [facility] MED & PEDS [address] [place] [address] Juan Miguel Tinajero MD 505 [place] [address] documented as of this encounter Goals Goal Patient Goal Type Associated Problems Recent Progress Patient-Stated? Author Blood Pressure < 140/90 Blood Pressure 164/85(2024 1:25 PM EST) No Juan Cordova PharmD Hemoglobin A1c < 7 Result Component 9.6( 2:33 PM EST) No Juan Cordova PharmD documented as of this encounter Visit Diagnoses Diagnosis Dyshydrosis Dyshidrosis documented in this encounter Additional Health Concerns Assessment Noted Time PHQ-9 Depression Total Score: 0 10/30/19 10:10 AM EDT documented as of this encounter Care Teams Urologist Relationship Specialty Start Date End Date Juan Miguel Tinajero MD 505 [place] [address] PCP - General Internal Medicine 05/28/18 Juan Cordova PharmD 505 [place] [address] Pharmacist Internal Medicine 07/14/22 Aidee Mejia 12/29/24 01/07/25 Yvonne Knox Hand Touch Up PainterMobile Home Lot Utility Worker 02/15/23 Yvonne Knox Hand Touch Up PainterMobile Home Lot Utility Worker 04/09/24 documented as of this encounter
--- OUTSIDE RECORDS SUMMARY | 2025-04-30 10:11 | XMS_ITS | Encounter Summary ---
Author Organization [employer] Address 75 [facility] 7t [place] [address] Care Team Providers Care Defensive Driving Instructor Name Role Phone Juan Miguel Tinajero MD Primary Care Provider [phone] Juan Cordova PharmD Unavailable Unavail able Aidee Mejia Unavailable Reason for Visit * Reason Onset Date Comments ER Follow-up 07/20/2023 Encounter Details Date Type Department Care Team (Late st Contact Info) Description 07/20/2023 Telephone [facility] MEDICINE [address] [place] [address] Juan Miguel Tinajero MD [address] [place] [address] ER Follow-up Social History Tobacco Use Types [...] AM EST TC placed to patient via [email or web address] regarding message below. Patient reports that 8 days ago, he had a fall and hit his L side and was evaluated at [facility]. They said he didn't break anything, but he is continuing to have L-sided pain in the area of his ribs. He denies bruising in the area,and he says that aspirin, tramadol, and another anti-inflammatory that was prescribed are not helping. Denies other symptoms. Advised to go to [place] at [facility] today for evaluation and patient agrees. Patient [...] ED visit on : Date: 07/12/2023 Hospital: [facility] Seen for: Fall Patient advised will forward to team nurse for follow up. Symptom: Chest Injury Outcome: Talk to a nurse or provider within 15 minutes Reason: Left Rib The caller accepted this outcome Yvonne Roseline [phone] * Telephone Encounter - Tsering Pastrana - 07/20/2023 11:40 AM EST Patient calling to report ED visit on : Date: 07/12/2023 Hospital: [facility] Seen for: Fall Patient advised will forward to team nurse for follow up. Symptom: Chest Injury Outcome: Talk to a nurse or provider within 15 minutes Reason: Left Rib The caller accepted this outcome Yvonne [facility] [phone] documented in this encounter Plan of Treatment Upcoming Encounters Date Type Department Care Team (Late st Contact Info) Description 06/04/2025 10:30 AM EST Clinical Support [facility] MED & PEDS [address] [place] [address] Elsa Barnett RN [address] [place] [address] 06/04/2025 1:45 PM EST Office Visit [facility] MED & PEDS [address] [place] [address] Juan Miguel Tinajero MD 505 [place] [address] documented as of this encounter Goals Goal [...] documented as of this encounter Care Teams Defensive Driving Instructor Relationship Specialty Start Date End Date Juan Miguel Tinajero MD [address] [place] [address] PCP - General Internal Medicine 05/28/18 Juan Cordova, PharmD [address] [place] [address] Pharmacist Internal Medicine 07/14/22 Aidee Mejia 12/29/24 01/07/25 Yvonne Knox Master PlumberLine Pilot 02/15/23 Yvonne Knox Master PlumberLine Pilot 04/09/24 documented as of this encounter
--- OUTSIDE RECORDS SUMMARY | 2025-04-30 10:11 | XMS_ITS | Encounter Summary ---
Author Organization [employer] Address 75 [facility] 7t [place] [address] Care Team Providers Care Lapel Baster Name Role Phone Juan Miguel Tinajero MD Primary Care Provider [phone] Juan Cordova PharmD Unavailable Unavail able Aidee Mejia Unavailable Encounter Details Date Type Department Care Team ([facility] st Contact Info) Description 06/14/2023 Orders Only [facility] MED & PEDS [address] [place], [place] [phone] Juan Miguel Tinajero MD 505 [place] [address] Benign essential hypertension Social History Tobacco Use [...] Upcoming Encounters Date Type Department Care Team ([facility] st Contact Info) Description 06/04/2025 10:30 AM EST Clinical Support [facility] MED & PEDS [address] [place] [address] Elsa Barnett, JENS 505 [place] [address] 06/04/2025 1:45 PM EST Office Visit [facility] MED & PEDS [address] [place] [address] Juan Miguel Tinajero MD [address] [place] [address] documented as of this encounter Goals Goal [...] documented as of this encounter Care Teams Lapel Baster Relationship Specialty Start Date End Date Juan Miguel Tinajero MD [address] [place] [address] PCP - General Internal Medicine 05/28/18 Juan Cordova, EbonieD 505 [place] [address] Pharmacist Internal Medicine 07/14/22 Aidee Mejia 12/29/24 01/07/25 Yvonne Knox Graduate RnOn Site Wastewater Systems Technician 02/15/23 Yvonne Knox Graduate RnOn Site Wastewater Systems Technician 04/09/24 documented as of this encounter
--- OUTSIDE RECORDS SUMMARY | 2025-04-30 10:11 | XMS_ITS | Encounter Summary ---
Author Organization [employer] Address 75 [facility] 7t [place] [address] Care Team Providers Care Fairing Man Name Role Phone Juan Miguel Tinajero MD Primary Care Provider [phone] Juan Cordova PharmD Unavailable Unavail able Encounter Details Date Type Department Care Team ([facility] st Contact Info) Description 01/14/2025 Orders Only [facility] CH[facility] MED & PEDS [address] [place], [place] [phone] Juan Miguel Tinajero MD [address] [place] [address] Normocytic anemia (Primary Dx) Social History Tobacco [...] Author 0 01/14/2025 9:12 AM EDT Magen Madnujano [place] documented as of this encounter Plan of Treatment Upcoming Encounters Date Type Department Care Team (Late st Contact Info) Description 06/04/2025 10:30 AM EST Clinical Support [facility] MED & PEDS [address] [place] [address] Elsa Barnett RN 505 [place] [address] 06/04/2025 1:45 PM EST Office Visit [facility] MED & PEDS [address] [place] [address] Juan Miguel Tinajero MD [address] [place] [address] documented as of this encounter Goals Goal Patient Goal Type Associated Problems Recent Progress Patient-Stated? Author Blood Pressure < 140/90 Blood Pressure 164/85(2024 1:25 PM EST) No JefelogJuan mtz, PharmD Hemoglobin A1c < 7 Result Component 9.6( 2:33 PM EST) No Juan Cordova, PharmD documented as of this encounter Procedures Procedure Name Priority Date/Time Associated Diagnosis Comments CBC WITH AUTO DIFFERENTIAL Routine 02/09/2025 10:38 AM EDT Normocytic anemia documented in this encounter Results * (ABNORMAL) CBC auto differential (02/09/2025 10:38 AM EDT) White Blood Count 8.2 4.8 - 10.8 X10*3/uL [facility] Red Blood Count 3.86(L) 4.60 - 5.80 X10*6/uL [facility] Hemoglobin 10.6(L) 14.0 - 18.0 g/dl [facility] Hematocrit 31.7(L) 42.0 - 52.0 % [facility] Mean Corpuscular Volume 82.1 80.0 - 98.0 fL [facility] Mean Corpuscular Hemoglobin 27.5 27.0 - 33.0 pg [facility] Mean Corpuscular HGB Conc 33.4 31.0 - 36.0 g/dl [facility] Red Cell Distribution Width 15.7 11.0 - 16.0 % [facility] Platelet Count 219 160 - 400 X10*3/uL [facility] Mean Platelet Volume 10.7 9.4 - 12.4 fL [facility] Neutrophils Percent Auto 62.4 45 - 73 % [facility] Imm Gran Pct Auto 0.2 0.0 - 0.4 % [facility] Lymphocytes Percent Auto 26.4 20 - 40 % [facility] Monocytes Percent Auto 6.1 2 - 11 % [facility] Eosinophils Percent Auto 4.5(H) 0 - 4 % [facility] Basophils Percent Auto 0.4 0 - 2 % [facility] NRBC Pct Auto 0.0 0.0 - 0.2 /100WBC [facility] Neutrophils Absolute Auto 5.1 2.0 - 8.3 x10*3/uL [facility] Imm Gran Abs Auto 0.02 0.00 - 0.03 X10*3/uL [facility] Lymphocytes Absolute Auto 2.2 1.2 - 4.9 X10*3/uL [facility] Monocytes Absolute Auto 0.5 0.1 - 1.2 X10*3/uL [facility] Eosinophils Absolute Auto 0.4 0.0 - 0.4 X10*3/uL [facility] Basophils Absolute Auto 0.0 0.0 - 0.2 X10*3/uL [facility] NRBC Abs Auto 0.000 0.0 - 0.012 X10*3/uL [facility] Blood Venous blood specimen / Unknown 02/09/2025 10:38 AM EDT 02/09/2025 2:00 PM EDT Juan Miguel Tinajero MD LAB BLOOD ORDERABLES Final Result [facility] [address] [place] [address] [phone] documented in this encounter Visit Diagnoses Diagnosis Normocytic anemia- Primary Unspecified anemia documented in this encounter Additional Health Concerns Assessment Noted Time PHQ-9 Depression Total Score: 0 01/15/20 25 9:12 AM EDT documented as of this encounter Care Teams Fairing Man Relationship Specialty Start Date End Date Juan Miguel Tinajero MD [address] [place] [address] PCP - General Internal Medicine 05/28/18 Juan Cordova PharmD [address] [place] [address] Pharmacist Internal Medicine 07/14/22 Yvonne Knox Injection Molding Machine OffbearerCasting Room Helper 02/15/23 Yvonne Knox Injection Molding Machine OffbearerCasting Room Helper 04/09/24 documented as of this encounter
--- OUTSIDE RECORDS SUMMARY | 2025-04-30 10:11 | XMS_ITS | Encounter Summary ---
Author Organization [employer] Address [address] [facility] 7t [place] [address] Care Team Providers Care Aerial Photograph Interpreter Name Role Phone Juan Miguel Tinajero MD Primary Care Provider [phone] Juan Cordova PharmD Unavailable Unavail able Aidee Mejia Unavailable Reason for Visit * Reason Comments Med Refill Encounter Details Date Type Department Care Team ([facility] Contact Info) Description 06/28/2023 Refill [facility] MED & PEDS [address] [place], [place] [phone] Juan Miguel Tinajero MD [address] [place] [address] Moderate persistent asthma without complication Social History [...] 10:30 AM EST Clinical Support [facility] MED & PEDS [address] [place] [address] Elsa Barnett RN [address] [place] [address] 06/04/2025 1:45 PM EST Office Visit [facility] MED & PEDS [address] [place] [address] Juan Miguel Tinajero MD [address] [place] [address] documented as of this encounter Goals Goal [...] as of this encounter Care Teams Aerial Photograph Interpreter Relationship Specialty Start Date End Date Juan Miguel Tinajero MD [address] [place] [address] PCP - General Internal Medicine 05/28/18 Juan Cordova, EbonieD [address] [place] [address] Pharmacist Internal Medicine 07/14/22 Aidee Mejia 12/29/24 01/07/25 Yvonne Knox Hone OperatorCabin Agent 02/15/23 Yvonne Knox Hone OperatorCabin Agent 04/09/24 documented as of this encounter
--- OUTSIDE RECORDS SUMMARY | 2025-04-30 10:11 | XMS_ITS | Encounter Summary ---
Author Organization [employer] [facility] Address [address] [facility] 7t [place] [address] Care Team Providers Care Floor Layer Tile Name Role Phone Juan Miguel Tinajero MD Primary Care Provider [phone] Juan Cordova PharmD Unavailable Unavail able Aidee Mejia Unavailable Encounter Details Date Type Department Care Team (Latest Contact Info) Description 03/17/2022 Abstract [facility] Dental, Provider, DDS Social History [...] 06/04/2025 10:30 AM EST Clinical Support [facility] MED & PEDS [address] [place] [address] Elsa Barnett, JENS [address] [place] [address] 06/04/2025 1:45 PM EST Office Visit [facility] MED & PEDS [address] [place] [address] Juan Miguel Tinajero MD [address] [place] [address] documented as of this encounter Visit Diagnoses Not on filedocumented in this encounter Care Teams Floor Layer Tile Relationship Specialty Start Date End Date Beauzile, Thevenin, MD [address] [place] [address] PCP - General Internal Medicine 05/28/18 Juan Cordova, EbonieD [address] [place] [address] Pharmacist Internal Medicine 07/14/22 Aidee Mejia 12/29/24 01/07/25 Yvonne Knox Swim CoachWomen'S Health Care Nurse Practitioner 02/15/23 Yvonne Knox Swim CoachWomen'S Health Care Nurse Practitioner 04/09/24 documented as of this encounter
--- OUTSIDE RECORDS SUMMARY | 2025-04-30 10:11 | XMS_ITS | Encounter Summary ---
Author Organization [employer] Address 75 [facility] 7t [place] [address] Care Team Providers Care Golf Course Patroller Name Role Phone Juan Miguel Tinajero MD Primary Care Provider [phone] Juan Cordova PharmD Unavailable Unavail able Aidee eMjia Unavailable Encounter Details Date Type Department Care Team ([facility] Contact Info) Description 05/05/2022 Orders Only [facility] MEDICINE [address] [place], [place] [phone] Juan Miguel Tinajero MD [address] [place], [place] [phone] Social History Tobacco Use Types Packs/Day Years [...] Upcoming Encounters Date Type Department Care Team ([facility] Contact Info) Description 06/04/2025 10:30 AM EST Clinical Support [facility] MED & PEDS [address] [place] [address] Elsa Barnett, JENS [address] [place] [address] 06/04/2025 1:45 PM EST Office Visit [facility] CHC MED & PEDS [address] [place] [address] Juan Miguel Tinajero MD [address] [place] [address] documented as of this encounter Goals Goal Patient Goal Type Associated Problems Recent Progress Patient-Stated? Author Hemoglobin A1c < 7 Result Component 9.6(04/28/2025 2:33 PM EST) No Juan Cordova, PharmD documented as of this encounter Visit Diagnoses Not on filedocumented in this encounter Care Teams Golf Course Patroller Relationship Specialty Start Date End Date Juan Miguel Tinajero MD [address] [place] [address] PCP - General Internal Medicine 05/28/18 Juan Cordova, PharmD [address] [place] [address] Pharmacist Internal Medicine 07/14/22 Aidee Mejia 12/29/24 01/07/25 Yvonne Knox Golf Course Equipment OperatorTicket Taker Ferryboat 02/15/23 Yvonne Knox Golf Course Equipment OperatorTicket Taker Ferryboat 04/09/24 documented as of this encounter
--- OUTSIDE RECORDS SUMMARY | 2025-04-30 10:11 | XMS_ITS | Encounter Summary ---
Author Organization [employer] Address 75 [facility] 7t [place] [address] Care Team Providers Care Circular Saw Filer Name Role Phone Juan Miguel Tinajero MD Primary Care Provider [phone] Juan Cordova PharmD Unavailable Unavail able Encounter Details Date Type Department Care Team ([facility] st Contact Info) Description 04/28/2025 Telephone [facility] CHC MED & PEDS [address] [place], [place] [phone] Juan Miguel Tinajero MD [address] [place] [address] Social History Tobacco Use Types Packs/Day Years [...] Encounters Date Type Department Care Team ([facility] st Contact Info) Description 06/04/2025 10:30 AM EST Clinical Support [facility] MED & PEDS [address] [place] [address] Elsa Barnett RN [address] [place] [address] 06/04/2025 1:45 PM EST Office Visit [facility] MED & PEDS [address] [place] [address] Juan Miguel Tinajreo MD [address] [place] [address] documented as of this encounter Goals Goal [...] Plan Weekly blood pressure task No Elsa Barnett, JENS Help patients manage their type 2 diabetes Care Plan Help patients manage their type 2 diabetes No Elsa Barnett RN Patient has chronic [...] Lugo RN documented as of this encounter Visit Diagnoses Not on filedocumented in this encounter Additional Health Concerns Active [...] documented as of this encounter Care Teams Circular Saw Filer Relationship Specialty Start Date End Date Juan Miguel Tinajero MD 505 [place] [address] PCP - General Internal Medicine 05/28/18 Juan Cordova, EbonieD [address] [place] [address] Pharmacist Internal Medicine 07/14/22 Yvonne Knox City CouncilmanSanitizer 02/15/23 Yvonne Knox City CouncilmanSanitizer 04/09/24 documented as of this encounter
--- OUTSIDE RECORDS SUMMARY | 2025-04-30 10:11 | XMS_ITS | Encounter Summary ---
Author Organization [employer] Address [address] [facility] [address] 7[address] [place] [address] Care Team Providers Care Delivery Recruiter Name Role Phone Juan Miguel Tinajero MD Primary Care Provider [phone] Juan Cordova PharmD Unavailable Unavail able Encounter Details Date Type Department Care Team (Latest Contact Info) Description 04/28/2025 Travel Social History Tobacco Use Types Packs/Day Years [...] is your housing situation today? I have basiadorian montano 02/17/[address] you [...] Description 06/04/2025 10:30 AM EST Clinical Support [facility] MED & PEDS [address] [place] [address] Elsa Barnett RN [address] [place] [address] 06/04/2025 1:45 PM EST Office Visit [facility] MED & PEDS [address] [place] [address] Juan Miguel Tinajero MD [address] [place] [address] documented as of this encounter Goals Goal [...] documented as of this encounter Care Teams Delivery Recruiter Relationship Specialty Start Date End Date Juan Miguel Tinajero MD [address] [place] [address] PCP - General Internal Medicine 05/28/18 Juan Cordova PharmD [address] [place] [address] Pharmacist Internal Medicine 07/14/22 Yvonne Knox Fire Safety DirectorHollow Core Door Frame Assembler 02/15/23 Yvonne Knox Fire Safety DirectorHollow Core Door Frame Assembler 04/09/24 documented as of this encounter
--- OUTSIDE RECORDS SUMMARY | 2025-04-30 10:11 | XMS_ITS | Clinical Summary ---
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 Gets regular [employer] follow up and has Narcan prescribed. F/U [...] Type 2 diabetes mellitus 04/23/2017 03/28/202305/2023 Immunizations Immunization Administration Dates Next Due Hepatitis [...] Years Used Date Smoking Tobacco: Former Cigarettes 0 Q uit: 2015 Smokeless Tobacco: Never Tobacco [...] Office Visit [facility] [address] [phone] Aj Grajeda MD [address] [phone] Health Maintenance Due Date Last Done Comments Colorectal Cancer Screening: Annual FOBT 2009 Colorectal Cancer Screening: Colonoscopy 2009 Colorectal Cancer Screening: Sigmoidoscopy 2009 Diabetes: Pedal Pulse Checked 03/28/2023 Diabetes: Sensory Foot Exam 03/28/2023 Diabetes: Visual Foot Exam 03/28/2023 Diabetes: Hemoglobin A1C 04/16/2025 025, 09/23/2024, 05/14/2024, [...] AM EDT) Hemoglobin A1C 6.6(H) (4.0-5.6) % [facility] Comment: MONITORING: In known diabetic patients, hemoglobin A1c targets should be discussed with health care provider. DIAGNOSTIC USE: The [place] [employer] (ADA) and the World Health [...] Supplement 1 Testing performed or reported by [facility], a Service of [facility], [address] [place] [address] Zachary Sanders MD, Pmo Consultant [facility]# [id number] Blood specimen (specimen) Venous blood / Unknown 03/21/2023 8:20 AM EDT 03/21/2023 8:25 AM EDT us Aj Grajeda MD LAB BLOOD ORDERABLES Final Re sult [facility] from Last 3 Months or Most Recently Relevant to Health Maintenance Insurance [place] Care Teams Study Specialist Relationship Specialty Start Date End Date Juan Miguel Tinajero MD [address] [place] [phone] PCP - General Internal Medicine 02/11/21
--- OUTSIDE RECORDS SUMMARY | 2025-04-30 10:11 | XMS_ITS | Clinical Summary ---
Author Organization [facility] ity Address [address] [place] [address] Care Team Providers Care Tearoom Host Name Role Phone Unavailable Primary Care Provider Unavailabl e Social History Tobacco Use Types Packs/Day Years Used Date Smoking Tobacco: Former Cigarettes 0 Q uit: 02/11/2020 Smokeless Tobacco: Never Alcohol [...] Depression Screening 05/28/2024 COVID-19 Vaccine (1 - 2024-2 6 season) 2025 Influenza Vaccine (#1) 2025 RSV [...]
== END 2025-04-30 10:28 | disposition home or self-care (01) ==
LOC: HO.HUSH 09:14
PROVIDERS: PCP Student in an Organized Health Care Education/Training Program; Visit Provider Urology
DX: N40.1 Benign prostatic hyperplasia with lower urinary tract symptoms (principal); N13.8 Other obstructive and reflux uropathy; N32.0 Bladder-neck obstruction
CPT/HCPCS: 99213

== ENCOUNTER → 2025-04-30 09:13 | Outpatient (BNVA) | payer MEDICAID, SELFPAY | PROVIDERS: PCP Student in an Organized Health Care Education/Training Program; Visit Provider Urology | DX: N40.1 Benign prostatic hyperplasia with lower urinary tract symptoms (principal); N13.8 Other obstructive and reflux uropathy; N32.0 Bladder-neck obstruction | CPT/HCPCS: 51798; 81003; 99212 ==